=== PATIENT | female | born 1950 | race Caucasian/White ===

== ENCOUNTER → 2016-07-21 | Outpatient (CLI) | payer BC, MEDICARE ==
--- NOTE | 2016-07-22 10:23 | MM ---
Reason for exam: screening (asymptomatic). Last mammogram was performed 7 years and 5 months ago. History: Patient is postmenopausal. Benign excisional biopsy of the right breast. Physical Findings: A clinical breast exam by your physician is recommended on an annual basis and results should be correlated with mammographic findings. MG Screening Mammo w CAD Bilateral CC and MLO view(s) were taken. No prior studies available for comparison. Focal asymmetry bilaterally. ASSESSMENT: Probably benign, BI-RAD 3 RECOMMENDATION: Follow-up diagnostic mammogram of both breasts in 6 months.
== END | disposition home or self-care (01) ==
LOC: RADMAMWWP 15:58
PROVIDERS: ATTEND Family Medicine
DX: Z12.31 Encounter for screening mammogram for malignant neoplasm of breast (principal)

== ENCOUNTER 2016-08-25 06:20 | Emergency (ER) | payer BC, MEDICARE ==
--- NOTE | 2016-08-25 06:48 | ED ---
Upper Extremity HPI - General Chief Complaint: Extremity Injury, Upper Stated Complaint: fall,wrist injury Time Seen by Provider: 08/25/16 06:30 Source: patient Mode of arrival: ambulatory Limitations: no limitations - History of Present Illness Initial Comments: Draining about left wrist pain and left hand pain, she fell off the couch yesterday. Denies any head head injury neck injury or any other injuries from the left hand is swollen and when she moves her hand and also hurts her forearm no pedal injury to the forearm as such or left elbow or the left shoulder. Review of systems are negative otherwise - Related Data Home Medications Medication Instructions Recorded Confirmed Hydrocodone/Acetaminophen [Lortab 1 tab PO TID PRN 05/04/14 10/22/14 10-325 mg Tablet] Montelukast [Singulair] 10 mg PO DAILY 05/04/14 10/22/14 Temazepam [Restoril] 15 mg PO HS 05/04/14 10/22/14 Tiotropium [place] [Spiriva] 1 puff INHALATION RT-DAILY 05/04/14 10/22/14 ALPRAZolam [Xanax] 0.5 mg PO BID PRN 10/22/14 10/22/14 Albuterol Sulfate [Proair Hfa] 2 puff INHALATION RT-QID PRN 10/22/14 10/22/14 Arformoterol Tartrate [Brovana] 15 mcg INHALATION RT-BID 10/22/14 10/22/14 Aspirin EC [Ecotrin Low Dose] 81 mg PO DAILY 10/22/14 10/22/14 Budesonide [Pulmicort] 1 mg INHALATION BID 10/22/14 10/22/14 Ipratropium Nebulized [Atrovent 0.5 mg INHALATION RT-QID 10/22/14 10/22/14 Nebulized] Levalbuterol HCl [Xopenex 1.25 mg INHALATION RT-QID PRN 10/22/14 10/22/14 Nebulized] Methimazole [Tapazole] 5 mg PO DAILY 10/22/14 10/22/14 Previous Rx's Medication Instructions Recorded DULoxetine HCL [Cymbalta] 30 mg PO DAILY #30 capsule.dr 05/06/14 Metoprolol Succinate [Toprol XL] 50 mg PO DAILY #30 tab.er.24h 05/06/14 amLODIPine BESYLATE [Norvasc] 10 mg PO DAILY #30 tablet 05/06/14 Calcium Carb-Vit D 500Mg-200Un 1 each PO BID #60 tablet 10/23/14 [Oscal 500+D] Cyclobenzaprine [Flexeril] 5 mg PO TID PRN #30 tab 10/23/14 Levofloxacin [Levaquin] 750 mg PO DAILY #5 tab 10/23/14 methylPREDNISolone Dose Pack 4 mg PO DIRECTED #21 package 10/23/14 [Medrol Dose Pack] predniSONE 10 mg PO DAILY #0 10/23/14 HYDROmorphone [Dilaudid] 2 mg PO Q8H PRN #15 tab 08/25/16 Allergies Allergy/AdvReac Type Severity Reaction Status Date / Time No Known Allergies Allergy Verified 08/25/16 06:27 Review of Systems ROS Statement: Those systems with pertinent positive or pertinent negative responses have been documented in the HPI. ROS Other: All systems not noted in ROS Statement are negative. Past Medical History Past Medical History: COPD, Hypertension, Pneumonia, Thyroid Disorder Additional Past Medical History / Comment(s): 10/22/14 Pt presented to [facility] ER with c/o epigastric and RUQ pain that wraps around to her whole back. Pain started 5 days ago. Pt being admitted with RLL pneumonia. Other HX: O2 dependent- 2L/NC. 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 polypectomy ( benign) bleed and was in ICU but pt states she did not have to recieve blood. History of Any Multi-Drug Resistant Organisms: None Reported Past Surgical History: Cholecystectomy, Hysterectomy, Orthopedic Surgery Additional Past Surgical History / Comment(s): R nephrectomy-donated to son, 2011 laparotomy with lysis of adhesions from kidney surgery causing bowel obstruction, L shoulder and collar bone surgery, lap sweta, colonoscopy with polypectomy and. post procedure rectal bleed. Past Anesthesia/Blood Transfusion Reactions: No Reported Reaction Additional Past Anesthesia/Blood Transfusion Reaction / Comment(s): Pt has never recieved blood. Past Psychological History: Depression Additional Psychological History / Comment(s): Pt lives with her . She is O2 dependent at 2L/NC continuously. She is independent. She uses no assistive devices or home care agency. She drives a car. Smoking Status: Former smoker Past Alcohol Use History: None Reported Additional Past Alcohol Use History / Comment(s): Pt started smoking in 1975 and quit smoking in 2011. She states however, that approx. 4 times a week she will sneak one cigarette. Past Drug Use History: None Reported - Past Family History Father Family Medical History: Cancer Additional Family Medical History / Comment(s): Pancreatic cancer and passed when he was 58 Mother Additional Family Medical History / Comment(s): None General Exam - General Exam Comments Initial Comments: General: The patient is awake and alert, in no distress, and does not appear acutely ill. Skin: Skin is warm and dry and no rashes or lesions are noted. Eye: Pupils are equal, round and reactive to light, extra-ocular movements are intact; there is normal conjunctiva bilaterally. Ears, nose, mouth and throat: There are moist mucous membranes and no oral lesions. Neck: The neck is supple, there is no tenderness Cardiovascular: There is a regular rate and rhythm. No murmur, rub or gallop is appreciated. Respiratory: To auscultation bilateral, no wheezing no rhonchi no distress respiratory gold noticed Gastrointestinal: Soft, non-distended, non-tender abdomen without masses or organomegaly noted. There is no rebound or guarding present. Bowel sounds are unremarkable. Back: There is no tenderness to palpation in the midline. There is no obvious deformity. Musculoskeletal: Left hand noticed some swelling around the wrist joint and the dorsal surface of the proximal hand, she is able to move her fingers range of motion is fairly compromised on the left wrist flexion and extension and supination and pronation are all compromised, no motor sensory deficit noticed Neurological: CN II-XII intact, Cranial nerves III through XII are intact. There are no obvious motor or sensory deficits. Coordination appears grossly intact. Speech is normal. Psychiatric: Cooperative, appropriate mood & affect, normal judgment. Limitations: no limitations Course Vital Signs 08/25/16 06:25 Temperature 97.3 F L Pulse Rate 94 Respiratory 20 Rate Blood Pressure 138/77 O2 Sat by Pulse [address] Curiel this morning Dr. Curiel agreed to see her 8:30 today in his office, wrist was splinted she was given prescription of pain medications she also had a shot of Toradol in the ER Disposition Clinical Impression: Radial fracture, Scaphoid fracture Disposition: HOME SELF-CARE Condition: Good Instructions: Wrist Injury (ED) Prescriptions: HYDROmorphone [Dilaudid] 2 mg PO Q8H PRN #15 tab PRN Reason: Pain Referrals: Chris Lopez DO [Primary Care Provider] - 1-2 days Nathanael Curiel DO [Doctor of Osteopathic Medicine] - 1-2 days
[2016-08-25] MEDS ORDERED: KETOROLAC 30 MG/ML 1 ML VIAL IM STA (06:53)
--- NOTE | 2016-08-25 07:18 | XR ---
EXAMINATION TYPE: 4 views left wrist. 3 views left hand. DATE OF EXAM: 08/25/2016 6:52 AM COMPARISON: NONE HISTORY: 66-year-old female with pain after fall yesterday lateral sided swelling. FINDINGS: Left wrist: There is subtle intra-articular lucency seen adjacent to the radial styloid process at the level of t he radiocarpal joint both on the navicular view and dorsally on the lateral view. Dorsal and lateral soft tissue swelling is noted. Otherwise, the radiocarpal and distal radial ulnar joint as well as th e midcarpal compartment appear intact. Left hand: There is mild to moderate osteoarthritic change at the first CMC joint and additional scattered mild to moderate osteoarthritic change throughout the DIP joints. A ring is present on the fourth digit. O steopenia without additional acute fracture seen. IMPRESSION: 1. Findings suggest a nondisplaced intra-articular fracture of the radial styloid process. Associated soft tissue swelling. 2. Osteoarthritic changes at the base of the thumb and involving the DIP joints. ICD 10: Acute, closed posttraumatic fracture, initial encounter.
[2016-08-25 07:31] VITALS: BP 114/67; PULSE 84; RESP 17; TEMP 98.1
== END 2016-08-25 07:29 | disposition home or self-care (01) ==
LOC: EC 06:20
DX: S52.514A Nondisplaced fracture of right radial styloid process, initial encounter for closed fracture (principal); S62.002A Unspecified fracture of navicular [scaphoid] bone of left wrist, initial encounter for closed fracture; J44.9 Chronic obstructive pulmonary disease, unspecified; E07.9 Disorder of thyroid, unspecified; F32.9 Major depressive disorder, single episode, unspecified; Z87.891 Personal history of nicotine dependence; Z79.82 Long term (current) use of aspirin; Z79.899 Other long term (current) drug therapy; Z87.01 Personal history of pneumonia (recurrent); Z99.81 Dependence on supplemental oxygen; W08.XXXA Fall from other furniture, initial encounter
CPT/HCPCS: 73110; 73130; 99283; 29125; 96372; J1885

== ENCOUNTER 2017-03-25 13:19 | Emergency (ER) | payer BC, MEDICARE ==
[2017-03-25 13:30] VITALS: RESP 18
[2017-03-25 13:49] LABS: Basophils % (A) 0 %; CH 27.6; CHCM 31.6; Eosinophils # (A) 0.4 k/uL (0-0.7); Eosinophils % (A) 4 %; HCT 33.6 % (34.0-46.0); HDW 2.75; HGB 10.7 gm/dL (11.4-16.0); Hypochromasia Slight; Luc # (Auto) 0.21; Luc % (Auto) 2; Lymphocytes # (A) 1.7 k/uL (1.0-4.8); Lymphocytes % (A) 19 %; MCH 27.9 pg (25.0-35.0); MCHC 31.7 g/dL (31.0-37.0); MCV 87.9 fL (80.0-100.0); Mean Platelet Volume 6.6; Monocytes # (A) 0.7 k/uL (0-1.0); Monocytes % (A) 7 %; Neutrophils # (A) 6.1 k/uL (1.3-7.7); Neutrophils % (A) 67 %; RBC 3.83 m/uL (3.80-5.40); WBC 9.1 k/uL (3.8-10.6); WBC (Perox) 8.98
[2017-03-25 13:54] LABS: Prothrombin Time 10.3 sec (9.0-12.0)
[2017-03-25 13:55] LABS: ALT 31 U/L (9-52); AST 14 U/L (14-36); Alkaline Phosphatase 79 U/L (38-126); Amylase 44 U/L (30-110); Anion Gap 11 mmol/L; Blood Urea Nitrogen 13 mg/dL (7-17); Calcium 9.7 mg/dL (8.4-10.2); Carbon Dioxide 30 mmol/L (22-30); Chloride 101 mmol/L (98-107); Glucose 91 mg/dL (74-99); Magnesium 1.7 mg/dL (1.6-2.3); Non-African American GFR(MDRD) >60 (>60 ml/min/1.73 sqM); Potassium 3.5 mmol/L (3.5-5.1); Sodium 142 mmol/L (137-145); Total Bilirubin 0.4 mg/dL (0.2-1.3); Total Protein 6.2 g/dL (6.3-8.2)
[2017-03-25 14:01] LABS: Partial Thromboplastin Time 21.6 sec (22.0-30.0)
[2017-03-25 14:12] LABS: Creatine Kinase <20 U/L (30-135)
--- NOTE | 2017-03-25 14:14 | ED ---
Abdominal Pain HPI - General Chief Complaint: Abdominal Pain Stated Complaint: LEFT LOWER BACK PAIN Time Seen by Provider: 03/25/17 13:19 Source: patient, EMS, RN notes reviewed, old records reviewed Mode of arrival: EMS Limitations: no limitations - History of Present Illness Initial Comments: This is a 66-year-old female who was transferred here for evaluation for abdominal aortic aneurysm evaluation. Patient apparently has a known aneurysm she did complain of some pain to her left low back and across her lower abdomen. Ultrasound. It was done at the nursing facility where she is rehabbing right now showed evidence of a 4 cm aneurysm with a possible thrombus. Patient was sent here for evaluation of this. Patient does have a history of a right nephrectomy she did donate a kidney 20 over sounds in the past. She has any fevers chills nausea vomiting sweats. Of note she recently was in [place] and states she suddenly woke up in the hospital after being in a coma for a couple weeks. She denies her what happened and does not have much recall of the events. No diarrhea dysuria MD Complaint: abdominal pain - Related Data Home Medications Medication Instructions Recorded Confirmed Montelukast [Singulair] 10 mg PO HS@2130 05/04/14 03/25/17 Tiotropium [place] [Spiriva] 1 cap INHALATION RT-DAILY@0800 05/04/14 03/25/17 Aspirin EC [Ecotrin Low Dose] 81 mg PO DAILY@1700 10/22/14 03/25/17 Budesonide [Pulmicort] 1 mg INHALATION RT-BID@1000,1400 10/22/14 03/25/17 Albuterol Nebulized [Ventolin 2.5 mg INHALATION 03/25/17 03/25/17 Nebulized] RT-QID@,,, Albuterol Sulfate [Proair Hfa] 2 puff INHALATION 03/25/17 03/25/17 RT-QID@,,,21 Arformoterol Tartrate [Brovana] 15 mcg INHALATION RT-BID@0800,1700 03/25/17 Bisacodyl [Dulcolax] 10 mg RECTAL DAILY PRN 03/25/17 03/25/17 Calcium Carbonate/Vitamin D3 1 tab PO DAILY@1700 03/25/17 03/25/17 [Calcium 600-Vit D3 200 Tablet] DULoxetine HCL [Cymbalta] 60 mg PO DAILY@0800 03/25/17 03/25/17 HYDROcodone/APAP 5-325MG [[place] 1 tab PO Q6HR PRN 03/25/17 03/25/17 5-325] Mag Hydrox/Al Hydrox/Simeth 15 ml PO QID PRN 03/25/17 03/25/17 [Maalox] Magnesium Hydroxide [Milk of 2,400 mg PO DAILY PRN 03/25/17 03/25/17 Magnesia] Metoprolol Succinate [Toprol XL] 25 mg PO DAILY@0800 03/25/17 03/25/17 Na Phos,M-B/Na Phos,Di-Ba [Fleet 133 ml RECTAL DAILY PRN 03/25/17 03/25/17 Adult] Ondansetron HCl [Zofran] 4 mg PO Q8H PRN 03/25/17 03/25/17 Potassium Chloride ER [K-Dur 10] 10 meq PO DAILY@1700 03/25/17 03/25/17 amLODIPine [Norvasc] 10 mg PO DAILY@0800 03/25/17 03/25/17 Previous Rx's Medication Instructions Recorded Cephalexin [Keflex] 500 mg PO Q6HR #40 cap 03/25/17 Allergies Allergy/AdvReac Type Severity Reaction Status Date / Time hydromorphone [From Dilaudid] Allergy Unknown Verified 03/25/17 14:12 Influenza Virus Vaccines Allergy Unknown Verified 03/25/17 14:12 Review of Systems ROS Statement: Those systems with pertinent positive or pertinent negative responses have been documented in the HPI. ROS Other: All systems not noted in ROS Statement are negative. Past Medical History Past Medical History: COPD, Hypertension, Pneumonia, Thyroid Disorder Additional Past Medical History / Comment(s): 10/22/14 Pt presented to [facility] ER with c/o epigastric and RUQ pain that wraps around to her whole back. Pain started 5 days ago. Pt being admitted with RLL pneumonia. Other HX: O2 dependent- 2L/NC. 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 polypectomy ( benign) bleed and was in ICU but pt states she did not have to recieve blood. History of Any Multi-Drug Resistant Organisms: None Reported Past Surgical History: Cholecystectomy, Hysterectomy, Orthopedic Surgery Additional Past Surgical History / Comment(s): R nephrectomy-donated to son, 2011 laparotomy with lysis of adhesions from kidney surgery causing bowel obstruction, L shoulder and collar bone surgery, lap sweta, colonoscopy with polypectomy and. post procedure rectal bleed. Past Anesthesia/Blood Transfusion Reactions: No Reported Reaction Additional Past Anesthesia/Blood Transfusion Reaction / Comment(s): Pt has never recieved blood. Past Psychological History: Depression Smoking Status: Former smoker Past Alcohol Use History: None Reported Past Drug Use History: None Reported - Past Family History Father Family Medical History: Cancer Additional Family Medical History / Comment(s): Pancreatic cancer and passed when he was 58 Mother Additional Family Medical History / Comment(s): None General Exam - General Exam Comments Initial Comments: This is a well-developed well-nourished awake alert oriented 3 female Limitations: no limitations General appearance: alert, in no apparent distress Head exam: Present: atraumatic, normocephalic, normal inspection Eye exam: Present: normal appearance, PERRL, EOMI. Absent: scleral icterus, conjunctival injection, periorbital swelling ENT exam: Present: normal exam, mucous membranes moist Neck exam: Present: normal inspection. Absent: tenderness, meningismus, lymphadenopathy Respiratory exam: Present: normal lung sounds bilaterally. Absent: respiratory distress, wheezes, rales, rhonchi, stridor Cardiovascular Exam: Present: regular rate, normal rhythm, normal heart sounds. Absent: systolic murmur, diastolic murmur, rubs, gallop, clicks GI/Abdominal exam: Present: soft, normal bowel sounds. Absent: distended, tenderness, guarding, rebound, rigid Extremities exam: Present: normal inspection, full ROM, normal capillary refill. Absent: tenderness, pedal edema, joint swelling, calf tenderness Back exam: Present: normal inspection Neurological exam: Present: alert, oriented X3, CN II-XII intact Psychiatric exam: Present: normal affect, normal mood Skin exam: Present: warm, dry, intact, normal color. Absent: rash Course Vital Signs 03/25/17 03/25/17 13:22 14:07 Temperature 98.8 F Pulse Rate 88 80 Respiratory 18 18 Rate Blood Pressure 125/73 138/70 O2 Sat by Pulse 97 98 Oximetry Medical Decision Making - Medical Decision Making I did discuss the findings with the patient the patient does have a urinary tract infection she does demonstrate the findings on the computed tomography scan nothing acute at this time. Visual be discharged on appropriate antibiotics. - Lab Data Result diagrams: 03/25/17 13:34 03/25/17 13:34 Lab Results 03/25/17 03/25/17 03/25/17 Range/Units 13:34 13:34 13:34 WBC (3.8-10.6) k/uL RBC (3.80-5.40) m/uL Hgb (11.4-16.0) gm/dL Hct (34.0-46.0) % MCV (80.0-100.0) fL MCH (25.0-35.0) pg MCHC (31.0-37.0) g/dL RDW (11.5-15.5) % Plt Count (150-450) k/uL Neutrophils % % Lymphocytes % % Monocytes % % Eosinophils % % Basophils % % Neutrophils # (1.3-7.7) k/uL Lymphocytes # (1.0-4.8) k/uL Monocytes # (0-1.0) k/uL Eosinophils # (0-0.7) k/uL Basophils # (0-0.2) k/uL Hypochromasia PT 10.3 (9.0-12.0) sec INR 1.0 (<1.2) APTT 21.6 L (22.0-30.0) sec Sodium 142 (137-145) mmol/L Potassium 3.5 (3.5-5.1) mmol/L Chloride 101 (98-107) mmol/L Carbon Dioxide 30 (22-30) mmol/L Anion Gap 11 mmol/L BUN 13 (7-17) mg/dL Creatinine 0.84 (0.52-1.04) mg/dL Est GFR (MDRD) Af Amer >60 (>60 ml/min/1.73 sqM) Est GFR (MDRD) Non-Af >60 (>60 ml/min/1.73 sqM) Glucose 91 (74-99) mg/dL Calcium 9.7 (8.4-10.2) mg/dL Magnesium 1.7 (1.6-2.3) mg/dL Total Bilirubin 0.4 (0.2-1.3) mg/dL AST 14 (14-36) U/L ALT 31 (9-52) U/L Alkaline Phosphatase 79 (38-126) U/L Total Creatine Kinase (30-135) U/L CK-MB (CK-2) (0.0-2.4) ng/mL CK-MB (CK-2) Rel Index Troponin I (0.000-0.034) ng/mL Total Protein 6.2 L (6.3-8.2) g/dL Albumin 3.5 (3.5-5.0) g/dL Amylase 44 (30-110) U/L Lipase 38 (23-300) U/L Urine Color Urine Appearance (Clear) Urine pH (5.0-8.0) Ur Specific [place] (1.001-1.035) Urine Protein (Negative) Urine Glucose (UA) (Negative) Urine Ketones (Negative) Urine Blood (Negative) Urine Nitrite (Negative) Urine Bilirubin (Negative) Urine Urobilinogen (<2.0) mg/dL Ur Leukocyte Esterase (Negative) Urine RBC (0-5) /hpf Urine WBC (0-5) /hpf Ur Squamous Epith Cells (0-4) /hpf Amorphous Sediment (None) /hpf Urine Bacteria (None) /hpf Hyaline Casts (0-2) /lpf Urine Mucus (None) /hpf Blood Type A Positive Blood Type Recheck A Pos Antibody Screen NEGATIVE Spec Expiration Date 03/28/2017233303/25/17 03/25/17 03/25/17 Range/Units 13:34 13:34 14:24 WBC 9.1 (3.8-10.6) k/uL RBC 3.83 (3.80-5.40) m/uL Hgb 10.7 L (11.4-16.0) gm/dL Hct 33.6 L (34.0-46.0) % MCV 87.9 (80.0-100.0) fL MCH 27.9 (25.0-35.0) pg MCHC 31.7 (31.0-37.0) g/dL RDW 14.0 (11.5-15.5) % Plt Count 320 (150-450) k/uL Neutrophils % 67 % Lymphocytes % 19 % Monocytes % 7 % Eosinophils % 4 % Basophils % 0 % Neutrophils # 6.1 (1.3-7.7) k/uL Lymphocytes # 1.7 (1.0-4.8) k/uL Monocytes # 0.7 (0-1.0) k/uL Eosinophils # 0.4 (0-0.7) k/uL Basophils # 0.0 (0-0.2) k/uL Hypochromasia Slight PT (9.0-12.0) sec INR (<1.2) APTT (22.0-30.0) sec Sodium (137-145) mmol/L Potassium (3.5-5.1) mmol/L Chloride (98-107) mmol/L Carbon Dioxide (22-30) mmol/L Anion Gap mmol/L BUN (7-17) mg/dL Creatinine (0.52-1.04) mg/dL Est GFR (MDRD) Af Amer (>60 ml/min/1.73 sqM) Est GFR (MDRD) Non-Af (>60 ml/min/1.73 sqM) Glucose (74-99) mg/dL Calcium (8.4-10.2) mg/dL Magnesium (1.6-2.3) mg/dL Total Bilirubin (0.2-1.3) mg/dL AST (14-36) U/L ALT (9-52) U/L Alkaline Phosphatase (38-126) U/L Total Creatine Kinase <20 L (30-135) U/L CK-MB (CK-2) 0.6 (0.0-2.4) ng/mL CK-MB (CK-2) Rel Index Troponin I <0.012 (0.000-0.034) ng/mL Total Protein (6.3-8.2) g/dL Albumin (3.5-5.0) g/dL Amylase (30-110) U/L Lipase (23-300) U/L Urine Color Yellow Urine Appearance Cloudy H (Clear) Urine pH 5.5 (5.0-8.0) Ur Specific [place] 1.019 (1.001-1.035) Urine Protein 2+ H (Negative) Urine Glucose (UA) Negative (Negative) Urine Ketones Negative (Negative) Urine Blood Negative (Negative) Urine Nitrite Positive H (Negative) Urine Bilirubin 1+ H (Negative) Urine Urobilinogen 2.0 (<2.0) mg/dL Ur Leukocyte Esterase Small H (Negative) Urine RBC 2 (0-5) /hpf Urine WBC 13 H (0-5) /hpf Ur Squamous Epith Cells 10 H (0-4) /hpf Amorphous Sediment Rare H (None) /hpf Urine Bacteria Many H (None) /hpf Hyaline Casts 189 H (0-2) /lpf Urine Mucus Few H (None) /hpf Blood Type Blood Type Recheck Antibody Screen Spec Expiration Date - EKG Data -: EKG Interpreted by Pr EKG shows normal: sinus rhythm (Sinus rhythm a rate of 91 appear of 01 76 QRS duration 74 QT since QTC of 352/432 this is a normal-appearing EKG.) - Radiology Data Radiology results: report reviewed, image reviewed (I did review the imaging and reports no acute findings the ascending aorta at the level of the main pulmonary arteries 3.6 to main pulmonary artery bifurcation is 3.1 cm descending thoracic aorta at the level of distal thorax measures 4.3 cm which is dilated no evidence of extravasation) Disposition Clinical Impression: Urinary tract infection, Thoracic aortic aneurysm without rupture Disposition: HOME SELF-CARE Condition: Good Instructions: Urinary Tract Infection in Women (ED), Thoracic Aortic Aneurysm ( ED) Prescriptions: Cephalexin [Keflex] 500 mg PO Q6HR #40 cap Referrals: Chris Lopez DO [Primary Care Provider] - 1-2 days
[2017-03-25 14:24] LABS: Creatine Kinase MB 0.6 ng/mL (0.0-2.4); Troponin I <0.012 ng/mL (0.000-0.034)
[2017-03-25 14:35] LABS: Amorphous Sediment,Urine Rare /hpf; Appearance,Urine Cloudy (Clear); Bacteria,Urine Many /hpf; Bilirubin,Urine 1+ (Negative); Glucose,Urine (UA) Negative (Negative); Ketones,Urine Negative (Negative); Leukocyte Esterase,Urine Small (Negative); Mucus,Urine Few /hpf; Nitrite,Urine Positive (Negative); PH, Urine 5.5 (5.0-8.0); Particle Count 8428; Protein,Urine 2+ (Negative); RBC,Urine 2 /hpf (0-5); Specific Gravity,Urine 1.019 (1.001-1.035); Squamous Epithelial Cell,Urine 10 /hpf (0-4); UA Billing (MACRO vs. MICRO) MICRO; WBC,Urine 13 /hpf (0-5)
[2017-03-25] MEDS ORDERED: SODIUM CHLORIDE 0.9% 1,000 ML IV STA (14:56)
[2017-03-25] MEDS ORDERED: RX INFO: IV CONTRAST WAS GIVEN 1 EACH MISC MISCELLANE PRN (14:56)
--- NOTE | 2017-03-25 15:53 | CT ---
EXAMINATION TYPE: CT angio thoracic/abd aorta DATE OF EXAM: 03/25/2017 COMPARISON: NONE HISTORY: Nausea, low back and abdominal pain x [address] DLP: 825.70 mGycm. Automated Exposure Control for Dose Reduction was Utilized. CONTRAST: CT scan of the thorax, abdomen and pelvis is performed without and with IV Contrast, patient injected with 100 mL of Omnipaque 350. FINDINGS: There is marked enlargement of the thyroid which extends into the suprasternal space. Proli ferative goiter. Note is made of vascular calcification within the aorta. LUNGS: The lungs are grossly clear, there is no concerning parenchymal mass or nodule identified. T here is no pleural effusion or pneumothorax seen. The tracheobronchial tree is patent. MEDIASTINUM: There is a 1.4 cm pretracheal space lymph node which is enlarged by CT criteria. OTHER: The ascending thoracic aorta at the level the main pulmonary artery is 3.6 cm. The main pulmon eduardo artery the bifurcation is 3.1 cm. The descending thoracic aorta at the level of the distal thorax measures 4.3 cm which is dilated. LIVER/GB: Liver is within normal limits. The gallbladder is surgically absent PANCREAS: No significant abnormality is seen. SPLEEN: No significant abnormality is seen. ADRENALS: No significant abnormality is seen. KIDNEYS: A 1.0 cm hyperdensities in the posterior lateral left mid kidney. A smaller adjacent hyperin tensity is present. Angiomyolipomas may be present. The right kidney is not identified. BOWEL: No significant abnormality is seen. Diverticular changes are within the sigmoid colon. GENITAL ORGANS: No gross abnormality seen. LYMPH NODES: No greater than 1cm abdominal or pelvic lymph nodes are appreciated. OSSEOUS STRUCTURES: No significant abnormality is seen. OTHER: No significant additional abnormality is seen. IMPRESSION: 1. Thyroid goiter 2. Mild prominence of the descending thoracic aorta with an AP diameter of 4.3 cm. Abdominal aorta ta pers normally through its visualized course.
[2017-03-25 16:21] VITALS: BP 144/85; PULSE 89; TEMP 98.5
== END 2017-03-25 17:00 | disposition home or self-care (01) ==
LOC: EC 13:19
DX: N39.0 Urinary tract infection, site not specified (principal); I71.2 Thoracic aortic aneurysm, without rupture; J44.9 Chronic obstructive pulmonary disease, unspecified; I10 Essential (primary) hypertension; E07.89 Other specified disorders of thyroid; G89.29 Other chronic pain; F32.9 Major depressive disorder, single episode, unspecified; Z87.891 Personal history of nicotine dependence; Z79.51 Long term (current) use of inhaled steroids; Z79.82 Long term (current) use of aspirin; Z79.899 Other long term (current) drug therapy; Z88.5 Allergy status to narcotic agent; Z88.7 Allergy status to serum and vaccine; Z90.49 Acquired absence of other specified parts of digestive tract; Z99.81 Dependence on supplemental oxygen; Z90.5 Acquired absence of kidney
CPT/HCPCS: 36415; 93005; 86900; 86901; 80053; 82150; 82550; 82553; 83690; 83735; 84484; 85025; 85610; 85730; 86850; 81001; 75635; 71275; 99285; 96360; Q9967; 80048; 82728; 83540; 83550

== ENCOUNTER → 2017-05-10 | Outpatient (CLI) | payer BC, MEDICARE ==
--- NOTE | 2017-05-10 10:47 | US ---
EXAMINATION TYPE: US thyroid st tissue head/neck DATE OF EXAM: 05/10/2017 COMPARISON: Prior thyroid ultrasound September 16, 2015. 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 Follow up Nodule GLAND SIZE: Right Lobe: 5.9 x 3.9 x 3.4 cm Overall Parenchyma: heterogenous Left Lobe: 7.2 x 3.3 x 3.6 cm Overall Parenchyma: heterogeneous Isthmus Thickness: 1.3 cm NODULES RIGHT: # of nodules measured on right: 3 1. 1.9 X 1.5 x 1.5 cm mixed nodule at the mid pole with well-defined margins. This nodule is talle r than wide and shows intranodular vascularity. Prior size: 1.6 x 1.4 x 1.0 cm 2. 1.0 X 0.9 x 0.6 cm isoechoic solid nodule at the upper pole with well-defined margins. This nodu le is taller than wide and shows intranodular vascularity. Prior size: No previous 3. 1.0 X 0.7 x 0.7 cm hypoechoic solid nodule at the lower pole with irregular margins. This nodule is taller than wide and shows no intranodular vascularity. Prior size: No previous LEFT: # of nodules measured on left: 2 1. 1.6 X 1.6 x 1.3 cm mixed nodule at the lower pole with poorly defined margins. This nodule is t aller than wide and shows no intranodular vascularity. Prior size: No prior 2. 1.8 X 1.7 x 1.2 cm isoechoic solid nodule at the upper pole with poorly defined margins. This no dule is taller than wide and shows no intranodular vascularity. Prior size: No prior ISTHMUS: # of nodules measured in the isthmus: 0 Bilateral neck scanned, no evidence of lymphadenopathy. Bilateral enlarged multinodular thyroid There is redemonstration of heterogeneous enlarged thyroid with multiple nodules. More nodules are ma rked by technologist on current study, these likely were present but not marked on the prior study du e to the heterogeneity. IMPRESSION: Findings consistent with multinodular goiter as detailed above.
== END | disposition home or self-care (01) ==
LOC: RADUSWWP 09:42
PROVIDERS: ATTEND Family Medicine
DX: E04.2 Nontoxic multinodular goiter (principal)
CPT/HCPCS: 76536

== ENCOUNTER → 2017-07-19 | Day surgery (SDC) | payer BC, MEDICARE ==
[~2017-07-19] MED LIST: BALANCED SALT IRRIG SOLN COMB2 15 ML IRRIG.SOLN IRRIGATION ONE; EPINEPHrine (PF) 0.5 ML in BALANCED SALT IRRIG SOLN COMB2 500 ML IRRIGATION ONE; GENTAMICIN/PREDNISOL AC OPHTH OINT 3.5GM OPHTHALMIC ONE; HYALURONATE SODIUM INTRAOCULAR 1 EACH SYRINGE (10MG/ML) INTRAOCULA ONE; LIDOCAINE 1% 20 ML VIAL (10MG/ML) FOR IV START INTRADERMA PRN; ONDANSETRON 4 MG/2 ML VIAL IVP ONE; PROPOFOL 10 MG/ML 20 ML VIAL IV ONE; TIMOLOL 0.5% OPHTH SOLN (PF) 0.2 ML DROPERETTE OP ONE
[2017-07-19] MEDS: PHENYLEPHRINE 10% OPHTH DROPS 5 ML BTL OP ONE ×3 (09:20→09:38)
[2017-07-19 09:21] VITALS: TEMP 97.8
[2017-07-19] MEDS: CYCLOPENTOLATE 1% OPHTH SOLN 2 ML BTL OP ONE ×3 (09:23→09:40)
[2017-07-19] MEDS: FLURBIPROFEN 0.03% OPHTH DROPS 2.5 ML BTL OP ONE ×2 (09:25→09:35)
[2017-07-19] MEDS: LACTATED RINGERS 1,000 ML IV SCH ×2 (09:36→10:03)
[2017-07-19] MEDS: BUPIVACAINE (PF) 0.75% 5 ML, HYALURONIDASE, HUMAN RECOMB 150 UNIT, LIDOCAINE 2% (PF) 10... MISCELLANE ONE ×6 (10:04→10:10)
--- NOTE | 2017-07-19 10:31 | P.OP ---
Date of Procedure: 07/19/17 Procedure(s) Performed: PREOPERATIVE DIAGNOSIS: Cataract, left eye. POSTOPERATIVE DIAGNOSIS: Cataract, left eye. OPERATION: Phacoemulsification cataract, left eye. DESCRIPTION OF PROCEDURE: The patient was taken to the preoperative holding area. Intravenous Propofol was given so as to bring about adequate sedation. The following mixture was given for local anesthesia: 5 mL of 2% lidocaine, 5 mL of 0.75% Marcaine, and 1 mL of Wydase. Approximately 4 mL was injected in the retrobulbar space of the surgical eye. Additional 1 mL was then directed to the temporal area of the surgical eye. This was performed to allow adequate neurological block of the facial muscles. The patient was revived and then taken into the operative room. The patient was prepped and draped in the usual sterile manner for the operative eye. A lid speculum was put into position. The conjunctiva was resected back from the limbus in the 12 o'clock position. Bleeding was controlled with electrocautery. A #69 blade was then used and a half-thickness scleral incision approximately 1-mm posterior to the limbus was made on bare sclera. This was shelved in the clear cornea using a crescent knife. Next a 15-degree blade was used to make a stab incision at the 3 o' clock position at the corneolimbal interface. Keratome blade was then used and the superior wound was extended into the anterior chamber. Viscoelastic was injected into the anterior chamber and to maintain its form. Next, a cystotome was used and a continuous anterior capsulotomy was made without difficulty. Hydrodissection using a blunt cannula and BSS was performed. Phaco probe was then employed and a groove extending from 12 to 6 o'clock in the lens was created. A Rolando wand was used through the stab incision so as to perform a divide and conquer technique. Next an irrigation aspiration probe was utilized and any residual cortex was removed from the eye. Again, viscoelastic was injected into the anterior chamber. An Philipp posterior chamber lens implant was placed in the cartridge and injected into the anterior chamber without difficulty. The SinTwillioney hook was utilized to spin the lens into position and this was again performed without any difficulty. The irrigation and aspiration probe was again employed and any residual viscoelastic was removed from the eye. Then BSS was injected into the limbal stab incision and the anterior chamber re-inflated. The conjunctiva was reapproximated using electrocautery. One drop of 0.25% Timoptic was placed over the corneal along with TobraDex ophthalmic ointment. Two sterile patches and a Henderson eye shield were taped into position. The patient was transported to the recovery room in stable condition. Pathology: none sent Condition: stable Disposition: same day
[2017-07-19 10:33] VITALS: RESP 16
[2017-07-19 10:58] VITALS: BP 128/88; PULSE 77
== END | disposition home or self-care (01) ==
LOC: OR 08:19
PROVIDERS: ATTEND Ophthalmology
DX: H26.9 Unspecified cataract (principal); I10 Essential (primary) hypertension; J44.9 Chronic obstructive pulmonary disease, unspecified; I71.4 Abdominal aortic aneurysm, without rupture; F17.200 Nicotine dependence, unspecified, uncomplicated; Z99.81 Dependence on supplemental oxygen; E03.9 Hypothyroidism, unspecified; Z90.5 Acquired absence of kidney; Z79.82 Long term (current) use of aspirin; Z79.51 Long term (current) use of inhaled steroids; Z79.899 Other long term (current) drug therapy; Z88.5 Allergy status to narcotic agent; Z88.7 Allergy status to serum and vaccine
CPT/HCPCS: 66984; V2632; J3470; J2001; J0171; J2704

== ENCOUNTER 2017-09-21 07:33 | Day surgery (SDC) | payer BC, MEDICARE ==
[2017-09-20 09:07] VITALS: BMI 24.7
[~2017-09-21 07:33] MED LIST changes: -BALANCED SALT IRRIG SOLN COMB2 15 ML IRRIG.SOLN IRRIGATION ONE; -EPINEPHrine (PF) 0.5 ML in BALANCED SALT IRRIG SOLN COMB2 500 ML IRRIGATION ONE; -GENTAMICIN/PREDNISOL AC OPHTH OINT 3.5GM OPHTHALMIC ONE; -HYALURONATE SODIUM INTRAOCULAR 1 EACH SYRINGE (10MG/ML) INTRAOCULA ONE; +LACTATED RINGERS 1,000 ML IV SCH; -LIDOCAINE 1% 20 ML VIAL (10MG/ML) FOR IV START INTRADERMA PRN; -ONDANSETRON 4 MG/2 ML VIAL IVP ONE; -PROPOFOL 10 MG/ML 20 ML VIAL IV ONE; -TIMOLOL 0.5% OPHTH SOLN (PF) 0.2 ML DROPERETTE OP ONE
[2017-09-21 08:57] VITALS: TEMP 98.2
[2017-09-21] MEDS ORDERED: LIDOCAINE 1% 20 ML VIAL (10MG/ML) FOR IV START INTRADERMA ONE (09:18)
[2017-09-21] MEDS ORDERED: PROPOFOL 10 MG/ML 20 ML VIAL IV ONE (09:19)
--- NOTE | 2017-09-21 09:52 | P.PCN ---
Date of Procedure: 09/21/17 Procedure(s) Performed: BRIEF HISTORY: Patient is a 67-year-old pleasant white female, scheduled for an elective colonoscopy as a part of evaluation of change in bowel habits for the last 1 year duration. She is been having severe constipation but denies any rectal bleeding. Her last colonoscopy was 10 years ago. PROCEDURE PERFORMED: Colonoscopy. PREOPERATIVE DIAGNOSIS: Change in bowel habits. IV sedation per Anesthesia. PROCEDURE: After informed consent was obtained, the patient, was brought into the endoscopy unit. IV sedation was administered by Anesthesia under continuous monitoring. Digital rectal examination was normal. Initially the Olympus CF- 160 flexible video colonoscope was then inserted in the rectum, gradually advanced into the sigmoid colon and further advancement was not possible because of acute angle duration this area. The scope was removed and a pediatric colonoscope was then introduced into the rectum and gradually advanced into the cecum without any difficulty. Careful examination was performed as the scope was gradually being withdrawn. Ileocecal valve and the appendiceal orifice were visualized and appeared normal. Prep was very poor and several areas of the colon. Thorough irrigation was performed despite which several areas of the colon could not be adequately visualized because of extremely poor prep. The visualized portions of the mucosa of the cecum, ascending colon, transverse colon, descending colon, sigmoid colon, and rectum appeared normal. Moderate sigmoid diverticulosis seen. Retroflexion was performed in the rectum and no lesions were seen. The patient tolerated the procedure well. IMPRESSION: Moderate sigmoid diverticulosis Poor prep involving several areas of the colon RECOMMENDATIONS: Findings of this examination were discussed with the patient as well as her family. She was advised to continue on MiraLAX 1 scoop twice daily for the chronic constipation and have a repeat surveillance colonoscopy in 3-5 years because of the poor prep.
[2017-09-21 10:04] VITALS: RESP 16
[2017-09-21 10:41] VITALS: BP 129/74; PULSE 78
== END 2017-09-21 10:50 | disposition home or self-care (01) ==
LOC: ORWHC2ENDO 07:33
PROVIDERS: ATTEND Internal Medicine Gastroenterology
DX: K57.30 Diverticulosis of large intestine without perforation or abscess without bleeding (principal); I10 Essential (primary) hypertension; J44.9 Chronic obstructive pulmonary disease, unspecified; Z79.82 Long term (current) use of aspirin; Z79.899 Other long term (current) drug therapy; Z88.7 Allergy status to serum and vaccine; Z88.5 Allergy status to narcotic agent; Z79.891 Long term (current) use of opiate analgesic; Z99.81 Dependence on supplemental oxygen; Z90.5 Acquired absence of kidney
CPT/HCPCS: 45378; J2704

== ENCOUNTER 2018-03-06 05:35 | Inpatient (IN) | payer MEDICARE ==
[2018-03-06] MEDS ORDERED: IPRATROPIUM 0.5 MG/2.5 ML NEBU INHALATION STA (05:40)
[2018-03-06] MEDS ORDERED: ALBUTEROL NEBULIZED 2.5 MG/3 ML INHALATION STA (05:40)
[2018-03-06 06:04] LABS: Basophils % (A) 0 %; Eosinophils # (A) 0.2 k/uL (0-0.7); Eosinophils % (A) 2 %; HCT 35.2 % (34.0-46.0); HGB 11.8 gm/dL (11.4-16.0); Lymphocytes # (A) 1.4 k/uL (1.0-4.8); Lymphocytes % (A) 13 %; MCH 27.6 pg (25.0-35.0); MCHC 33.4 g/dL (31.0-37.0); MCV 82.5 fL (80.0-100.0); Mean Platelet Volume 6.1; Monocytes # (A) 0.6 k/uL (0-1.0); Monocytes % (A) 5 %; Neutrophils # (A) 8.3 k/uL (1.3-7.7); Neutrophils % (A) 78 %; Platelet Count 401 k/uL (150-450); RBC 4.27 m/uL (3.80-5.40); RDW 13.7 % (11.5-15.5); WBC 10.8 k/uL (3.8-10.6)
--- NOTE | 2018-03-06 06:05 | XR ---
EXAMINATION TYPE: XR chest 1V portable DATE OF EXAM: 03/06/2018 COMPARISON: 05/02/2017 HISTORY: Short of breath TECHNIQUE: Single frontal view of the chest is obtained. FINDINGS: There is no heart failure nor confluent pneumonic infiltrate. Thoracic aorta is atheromato us. There is a plate fixing the left clavicle. There is osteopenia. There are chest leads. IMPRESSION: No active cardiopulmonary disease. Atheromatous aorta. No change.
[2018-03-06 06:18] LABS: Prothrombin Time 9.8 sec (9.0-12.0)
[2018-03-06] MEDS ORDERED: methylPREDNISolone SOD SUCCI 125 MG/2 ML VIAL IV STA (06:19)
--- NOTE | 2018-03-06 06:22 | ED ---
General Adult HPI - General Chief complaint: Shortness of Breath Stated complaint: SOB Time Seen by Provider: 03/06/18 05:40 Source: patient, RN notes reviewed, old records reviewed Mode of arrival: EMS Limitations: no limitations - History of Present Illness Initial comments: This is a 67-year-old female the ER for evasive significant shortness of breath. Patient poor strain, but in by EMS, EMS states patient has significant difficulty breathing. EMS called the patient's house for severe difficulty breathing. Patient currently on breathing treatment, EMS the patient did have some tripoding with hypoxia. - Related Data Home Medications Medication Instructions Recorded Confirmed Montelukast [Singulair] 10 mg PO HS@2130 05/04/14 03/06/18 Tiotropium [place] [Spiriva] 1 cap INHALATION RT-DAILY@0800 05/04/14 03/06/18 Aspirin EC [Ecotrin Low Dose] 81 mg PO Q48H 10/22/14 03/06/18 Budesonide [Pulmicort] 1 mg INHALATION RT-BID@1000,1400 10/22/14 03/06/18 Albuterol Nebulized [Ventolin 2.5 mg INHALATION 03/25/17 03/06/18 Nebulized] RT-QID@08,,, Albuterol Sulfate [Proair Hfa] 2 puff INHALATION RT-QID PRN 03/25/17 03/06/18 Arformoterol Tartrate [Brovana] 15 mcg INHALATION RT-BID@0800,1700 03/25/1704/13 Calcium Carbonate/Vitamin D3 1 tab PO DAILY@1700 03/25/17 03/06/18 [Calcium 600-Vit D3 200 Tablet] DULoxetine HCL [Cymbalta] 60 mg PO DAILY@0800 03/25/17 03/06/18 Metoprolol Succinate [Toprol XL] 25 mg PO HS@1800 03/25/17 03/06/18 amLODIPine [Norvasc] 10 mg PO HS@1800 03/25/17 03/06/18 Hydrocodone/Acetaminophen [Craig 1 tab PO Q6H PRN 07/08/17 03/06/18 10-325] Methimazole [Tapazole] 5 mg PO HS 07/08/17 03/06/18 Atorvastatin [Lipitor] 10 mg PO HS 09/20/17 03/06/18 ALPRAZolam [Xanax] 0.5 mg PO DAILY PRN 03/06/18 03/06/18 DULoxetine HCL [Cymbalta] 30 mg PO DAILY@0800 03/06/18 03/06/18 Temazepam [Restoril] 15 mg PO HS 03/06/18 03/06/18 Allergies Allergy/AdvReac Type Severity Reaction Status Date / Time Influenza Virus Vaccines Allergy Dyspnea Verified 03/06/18 07:06 hydromorphone [From Dilaudid] AdvReac Hallucinati Verified 03/06/18 07:06 ons Review of Systems ROS Statement: Those systems with pertinent positive or pertinent negative responses have been documented in the HPI. ROS Other: All systems not noted in ROS Statement are negative. Past Medical History Past Medical History: Asthma, COPD, Hypertension, Pneumonia, Thyroid Disorder Additional Past Medical History / Comment(s): recent UTI-now resolved, FEB 2017 -resp. failure-on vent. 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 polypectomy bleed and was in ICU, Graves disease History of Any Multi-Drug Resistant Organisms: None Reported Past Surgical History: Cholecystectomy, Hysterectomy, Orthopedic Surgery Additional Past Surgical History / Comment(s): R nephrectomy, 2011 laparotomy with lysis of adhesions from kidney surgery causing bowel obstruction. L shoulder and collar bone surgery, colonoscopy with polypectomy, cataract surg. Past Anesthesia/Blood Transfusion Reactions: No Reported Reaction Additional Past Anesthesia/Blood Transfusion Reaction / Comment(s): Pt has never received blood. Past Psychological History: Depression Smoking Status: Former smoker - Past Family History Father Family Medical History: Cancer Additional Family Medical History / Comment(s): Pancreatic cancer and passed when he was 60 Mother Family Medical History: No Reported History Additional Family Medical History / Comment(s): None General Exam Limitations: no limitations General appearance: alert, in no apparent distress, anxious, in distress Head exam: Present: atraumatic, normocephalic, normal inspection Eye exam: Present: normal appearance, PERRL, EOMI. Absent: scleral icterus, conjunctival injection, periorbital swelling ENT exam: Present: normal exam, mucous membranes moist Neck exam: Present: normal inspection. Absent: tenderness, meningismus, lymphadenopathy Respiratory exam: Present: respiratory distress, wheezes, accessory muscle use, decreased breath sounds, prolonged expiratory. Absent: rales, rhonchi, stridor Cardiovascular Exam: Present: regular rate, normal rhythm, normal heart sounds. Absent: systolic murmur, diastolic murmur, rubs, gallop, clicks GI/Abdominal exam: Present: soft, normal bowel sounds. Absent: distended, tenderness, guarding, rebound, rigid Extremities exam: Present: normal inspection, full ROM, normal capillary refill. Absent: tenderness, pedal edema, joint swelling, calf tenderness Back exam: Present: normal inspection Neurological exam: Present: alert, oriented X3, CN II-XII intact Psychiatric exam: Present: normal affect, normal mood Skin exam: Present: warm, dry, intact, normal color. Absent: rash Course Vital Signs 03/06/18 03/06/18 03/06/18 05:39 05:45 06:01 Temperature 98.0 F Pulse Rate 95 90 90 Respiratory 22 Rate Blood Pressure 146/76 O2 Sat by Pulse 88 L Oximetry 03/06/18 03/06/18 06:17 06:50 Temperature Pulse Rate 100 105 H Respiratory 22 Rate Blood Pressure 159/79 O2 Sat by Pulse 98 Oximetry - Reevaluation(s) Reevaluation #1: 03/06/18 06:54 Patient is showing significant clinical improvement breathing treatments EKG Findings - EKG Comments: EKG Findings:: EKG shows sinus rhythm rate of 91, WI 186, QRS 86, QTc 462 Medical Decision Making - Medical Decision Making 67 female the ER for evaluation of significant COPD exacerbation, will admit for breathing treatments and monitoring of oxygen - Lab Data Result diagrams: 03/06/18 05:53 03/06/18 05:53 Lab Results 03/06/18 03/06/18 03/06/18 Range/Units 05:53 05:53 05:53 WBC 10.8 H (3.8-10.6) k/uL RBC 4.27 (3.80-5.40) m/uL Hgb 11.8 (11.4-16.0) gm/dL Hct 35.2 (34.0-46.0) % MCV 82.5 (80.0-100.0) fL MCH 27.6 (25.0-35.0) pg MCHC 33.4 (31.0-37.0) g/dL RDW 13.7 (11.5-15.5) % Plt Count 401 (150-450) k/uL Neutrophils % 78 % Lymphocytes % 13 % Monocytes % 5 % Eosinophils % 2 % Basophils % 0 % Neutrophils # 8.3 H (1.3-7.7) k/uL Lymphocytes # 1.4 (1.0-4.8) k/uL Monocytes # 0.6 (0-1.0) k/uL Eosinophils # 0.2 (0-0.7) k/uL Basophils # 0.0 (0-0.2) k/uL PT (9.0-12.0) sec INR (<1.2) APTT (22.0-30.0) sec Sodium 142 (137-145) mmol/L Potassium 3.0 L (3.5-5.1) mmol/L Chloride 103 (98-107) mmol/L Carbon Dioxide 31 H (22-30) mmol/L Anion Gap 8 mmol/L BUN 19 H (7-17) mg/dL Creatinine 0.92 (0.52-1.04) mg/dL Est GFR (CKD-EPI)AfAm 76 (>60 ml/min/1.73 sqM) Est GFR (CKD-EPI)NonAf 66 (>60 ml/min/1.73 sqM) Glucose 109 H (74-99) mg/dL Estimated Ave Glu mg/dL Hemoglobin A1c (4.0-6.0) % Calcium 10.8 H (8.4-10.2) mg/dL Magnesium 1.8 (1.6-2.3) mg/dL Total Bilirubin 0.5 (0.2-1.3) mg/dL AST 13 L (14-36) U/L ALT 21 (9-52) U/L Alkaline Phosphatase 96 (38-126) U/L Total Creatine Kinase 33 (30-135) U/L CK-MB (CK-2) 0.6 (0.0-2.4) ng/mL CK-MB (CK-2) Rel Index 1.8 Troponin I <0.012 (0.000-0.034) ng/mL NT-Pro-B Natriuret Pep pg/mL Total Protein 6.1 L (6.3-8.2) g/dL Albumin 3.5 (3.5-5.0) g/dL 03/06/18 03/06/18 03/06/18 Range/Units 05:53 05:53 05:55 WBC (3.8-10.6) k/uL RBC (3.80-5.40) m/uL Hgb (11.4-16.0) gm/dL Hct (34.0-46.0) % MCV (80.0-100.0) fL MCH (25.0-35.0) pg MCHC (31.0-37.0) g/dL RDW (11.5-15.5) % Plt Count (150-450) k/uL Neutrophils % % Lymphocytes % % Monocytes % % Eosinophils % % Basophils % % Neutrophils # (1.3-7.7) k/uL Lymphocytes # (1.0-4.8) k/uL Monocytes # (0-1.0) k/uL Eosinophils # (0-0.7) k/uL Basophils # (0-0.2) k/uL PT 9.8 (9.0-12.0) sec INR 1.0 (<1.2) APTT 21.2 L (22.0-30.0) sec Sodium (137-145) mmol/L Potassium (3.5-5.1) mmol/L Chloride (98-107) mmol/L Carbon Dioxide (22-30) mmol/L Anion Gap mmol/L BUN (7-17) mg/dL Creatinine (0.52-1.04) mg/dL Est GFR (CKD-EPI)AfAm (>60 ml/min/1.73 sqM) Est GFR (CKD-EPI)NonAf (>60 ml/min/1.73 sqM) Glucose (74-99) mg/dL Estimated Ave Glu mg/dL 111 Hemoglobin A1c 5.5 (4.0-6.0) % Calcium (8.4-10.2) mg/dL Magnesium (1.6-2.3) mg/dL Total Bilirubin (0.2-1.3) mg/dL AST (14-36) U/L ALT (9-52) U/L Alkaline Phosphatase (38-126) U/L Total Creatine Kinase (30-135) U/L CK-MB (CK-2) (0.0-2.4) ng/mL CK-MB (CK-2) Rel Index Troponin I (0.000-0.034) ng/mL NT-Pro-B Natriuret Pep 150 pg/mL Total Protein (6.3-8.2) g/dL Albumin (3.5-5.0) g/dL - Radiology Data Radiology results: report reviewed (Chest x-rays negative for acute disease), image reviewed Critical Care Time Critical Care Time: Yes Total Critical Care Time: 31 Disposition Clinical Impression: Acute exacerbation of chronic obstructive airways disease Disposition: ADMITTED IP TO THIS HOSP Condition: Serious Is patient prescribed a controlled substance at d/c from ED?: No
[2018-03-06 06:24] LABS: Albumin 3.5 g/dL (3.5-5.0); Calcium 10.8 mg/dL (8.4-10.2); Magnesium 1.8 mg/dL (1.6-2.3); Total Bilirubin 0.5 mg/dL (0.2-1.3); Total Protein 6.1 g/dL (6.3-8.2)
[2018-03-06 06:27] LABS: Creatine Kinase 33 U/L (30-135)
[2018-03-06 06:40] LABS: Creatine Kinase MB 0.6 ng/mL (0.0-2.4); Troponin I <0.012 ng/mL (0.000-0.034)
[2018-03-06] MEDS ORDERED: POTASSIUM BICARBONATE/CIT AC 20 MEQ TABLET.EFF PO ONE (06:41)
[2018-03-06 06:43] LABS: Partial Thromboplastin Time 21.2 sec (22.0-30.0)
[2018-03-06] MEDS: SODIUM CHLORIDE 0.9% 1,000 ML IV SCH ×2 (08:12→17:05)
[2018-03-06] MEDS: INSULIN ASPART 100 UNIT/ML 1 ML 10 ML VIAL SQ SCH ×4 (08:13→20:40)
[2018-03-06] MEDS: IPRATROPIUM-ALBUTEROL 3 ML NEB INHALATION SCH ×5 (08:34→23:29)
[2018-03-06] MEDS: ENOXAPARIN 40 MG/0.4 ML SYRINGE SQ SCH (09:21)
[2018-03-06] MEDS ORDERED: ALPRAZolam 0.5 MG TAB PO PRN (11:04)
[2018-03-06 11:41] LABS: Glucose,Whole Blood 172 mg/dL (75-99)
[2018-03-06] MEDS ORDERED: ALBUTEROL NEBULIZED 2.5 MG/3 ML INHALATION PRN (12:21)
[2018-03-06] MEDS: methylPREDNISolone SOD SUCCI 125 MG/2 ML VIAL IV SCH ×2 (12:37→17:38)
[2018-03-06] MEDS: HYDROcodone/APAP 10-325MG 1 EACH TAB PO PRN ×2 (12:43→19:56)
--- NOTE | 2018-03-06 13:28 | P.CNPUL ---
History of Present Illness Consult date: 03/06/18 Reason for consult: dyspnea, COPD History of present illness: 67-year-old here patient with known history of advanced COPD who was having shortness of breath over the past 3 weeks. She had seen her primary care physician she was given a prednisone burst taper. She was improving however yesterday she took a turn for the worse. She started having increased shortness of breath. She was using her breathing medications frequently and she end up any murmurs department with hypoxemia and respiratory distress. She was admitted for diagnosis and treatment of COPD exacerbation. White cell count is at 10.8. Normal renal function. Negative cardiac enzymes. Chest x- ray showing chronic COPD without any acute abnormalities. She is independent. She has been maintained on a combination of Spiriva, Brovana and Pulmicort on outpatient basis and albuterol rescue inhaler when necessary. She has been also chronically steroid dependent at one point and she was gradually weaned off the steroids. She has a large goiter which is nonobstructive at this point that she is being treated for multinodular goiter and hyperthyroidism with methimazole. She has also chronic anxiety. She has quit smoking for now. No chest pain. No altered mentation. No nausea or vomiting. No other complaints otherwise for now. Note that the patient has severe COPD and she is oxygen dependent at 2 L per minute nasal cannula. Her most recent FEV1 is normal to 37 % of predicted. Review of Systems Patient reports lethargy. She reports cough and shortness of breath. She reports back pain. She reports no dry eyes, no vision change, and no irritation. She reports no difficulty hearing and no ear pain. She reports no frequent nosebleeds, no nose problems, and no sinus problems. She reports no sore throat, no bleeding gums, no snoring, no dry mouth, no mouth ulcers, no oral abnormalities, and no teeth problems. She reports no chest pain, no arm pain on exertion, no shortness of breath when walking, no shortness of breath when lying down, no palpitations, and no known heart murmur. She reports no abdominal pain, no nausea, no vomiting, no constipation, normal appetite, no diarrhea, not vomiting blood, no dyspepsia, and no GERD. She reports no incontinence, no difficulty urinating, no hematuria, and no increased frequency. She reports no abnormal mole, no jaundice, no rashes, and no laceration. She reports no loss of consciousness, no weakness, no numbness, no seizures, no dizziness, no migraines, no headaches, and no tremor. She reports no depression, no sleep disturbances, feeling safe in a relationship, no alcohol abuse, no anxiety, no hallucinations, and no suicidal thoughts. She reports no fatigue. She reports no swollen glands, no bruising, and no excessive bleeding. She reports no runny nose, no sinus pressure, no itching, no hives, and no frequent sneezing. 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 History of Any Multi-Drug Resistant Organisms: None Reported Past Surgical History: Cholecystectomy, Hysterectomy, Orthopedic Surgery Additional Past Surgical History / Comment(s): R nephrectomy, 2011 laparotomy with lysis of adhesions causing bowel obstruction. L shoulder and collar bone surgery-pt states she has hardware, colonoscopies with polypectomy, bilateral cataract surgery with lens implants. Past Anesthesia/Blood Transfusion Reactions: No Reported Reaction Additional Past Anesthesia/Blood Transfusion Reaction / Comment(s): Pt has never received blood. Smoking Status: Former smoker - Past Family History Father Family Medical History: Cancer Additional Family Medical History / Comment(s): Pancreatic cancer and passed when he was 58 Mother Family Medical History: No Reported History Additional Family Medical History / Comment(s): None Medications and Allergies Home Medications Medication Instructions Recorded Confirmed Type Montelukast [Singulair] 10 mg PO HS@2130 05/04/14 03/06/18 History Tiotropium [place] [Spiriva] 1 cap INHALATION RT-DAILY@0800 05/04/14 03/06/18 History Aspirin EC [Ecotrin Low Dose] 81 mg PO Q48H 10/22/14 03/06/18 History Budesonide [Pulmicort] 1 mg INHALATION RT-BID@1000,1400 10/22/14 03/06/18 History Albuterol Nebulized [Ventolin 2.5 mg INHALATION 03/25/17 03/06/18 History Nebulized] RT-QID@08,12,17,21 Albuterol Sulfate [Proair Hfa] 2 puff INHALATION RT-QID PRN 03/25/17 03/06/18 History Arformoterol Tartrate [Brovana] 15 mcg INHALATION RT-BID@0800,1700 03/25/1704/13 History Calcium Carbonate/Vitamin D3 1 tab PO DAILY@1700 03/25/17 03/06/18 History [Calcium 600-Vit D3 200 Tablet] DULoxetine HCL [Cymbalta] 60 mg PO DAILY@0800 03/25/17 03/06/18 History Metoprolol Succinate [Toprol XL] 25 mg PO HS@1800 03/25/17 03/06/18 History amLODIPine [Norvasc] 10 mg PO HS@1800 03/25/17 03/06/18 History Hydrocodone/Acetaminophen [[place] 1 tab PO Q6H PRN 07/08/17 03/06/18 History 10-325] Methimazole [Tapazole] 5 mg PO HS 07/08/17 03/06/18 History Atorvastatin [Lipitor] 10 mg PO HS 09/20/17 03/06/18 History ALPRAZolam [Xanax] 0.5 mg PO DAILY PRN 03/06/18 03/06/18 History DULoxetine HCL [Cymbalta] 30 mg PO DAILY@0803/06/18 03/06/18 History Temazepam [Restoril] 15 mg PO HS 03/06/18 03/06/18 History Allergies Allergy/AdvReac Type Severity Reaction Status Date / Time Influenza Virus Vaccines Allergy Dyspnea Verified 03/06/18 07:06 hydromorphone [From Dilaudid] AdvReac Hallucinati Verified 03/06/18 07:06 ons Physical Exam Vitals: Vital Signs Temp Pulse Pulse Resp BP BP Pulse Ox 03/06/18 12:11 96 03/06/18 12:00 96 03/06/18 08:45 100 03/06/18 08:35 100 03/06/18 07:55 97.6 F 102 H 14 146/72 94 L 03/06/18 06:50 105 H 22 159/79 98 03/06/18 06:17 100 03/06/18 06:01 90 03/06/18 05:45 90 03/06/18 05:39 98.0 F 95 22 146/76 88 L Intake and Output 03/05/18 03/06/18 03/06/18 22:59 06:59 14:59 Intake Total 300 Balance 300 Intake: Amount of Fluid Infused ( 300 ml) Other: Voiding Method Toilet Weight 63.503 kg General Appearance no diaphoresis, dyspnea, pallor, or respiratory distress and speech not interrupted by breaths, not cachectic, well nourished, and appears well. HEENT goiter, multinodular. Chest no retractions, rhonchi, hyperinflation, sternocleidomastoid muscle contractions, supraclavicular retractions, intercostal retractions, or decreased air movement and barrel chest , prolonged expiratory wheezing, and decreased air movement. Heart no right ventricular heave, distant heart sounds, or s3 gallop and Murmurs: Unspecified Location: Systolic: Grade 0 / IV and (normal) jugular vein: jugular venous distention: by 0cm. GI bowel sounds: hyperactive (borborygmi) and diminished or absent. Extremities no cyanosis, clubbing, or edema; trace edema. Neurologic no somnolence, confusion, or decreased mental status. Skin: General Appearance normal and (normal) normal except as noted. Results - Laboratory Findings CBC and BMP: 03/06/18 05:53 03/06/18 05:53 PT/INR, D-dimer PT 9.8 sec (9.0-12.0) 03/06/18 05:53 INR 1.0 (<1.2) 03/06/18 05:53 Abnormal lab findings: Abnormal Labs 03/06/18 03/06/18 03/06/18 05:53 05:53 05:53 WBC 10.8 H Neutrophils # 8.3 H APTT 21.2 L Potassium 3.0 L Carbon Dioxide 31 H BUN 19 H Glucose 109 H POC Glucose (mg/dL) Calcium 10.8 H AST 13 L Total Protein 6.1 L 03/06/18 11:40 WBC Neutrophils # APTT Potassium Carbon Dioxide BUN Glucose POC Glucose (mg/dL) 172 H Calcium AST Total Protein - Diagnostic Findings Chest x-ray: image reviewed Assessment and Plan Plan: 1. Acute COPD exacerbation in a patient with known history of Severe chronic obstructive pulmonary disease -and the patient failed outpatient treatment regarding her COPD exacerbation. Chest x-rays clear of any pulmonary infiltrates. She is on oxygen 2 L/m nasal cannula. FEV1 is normal of 37% of predicted at baseline. She is back to her usual routine respiratory medication which included a combination of Brovana and Pulmicort neb last treatment twice a day, Spiriva one inhalation day and albuterol solution as needed. J44.9: Chronic obstructive pulmonary disease, unspecified 2. Chronic hypoxemic respiratory failure - continue oxygen at 2 L/m nasal cannula. J96.11: Chronic respiratory failure with hypoxia 3. Total nephrectomy - the patient has undergone a nephrectomy and this was strictly for donation. Follow-up renal function will be checked to her primary care physician. the kidney function is normal for now with a creatinine of 0.9 and GFR above 60. Z90.5: Acquired absence of kidney 4. Compression fracture of thoracic vertebra - this patient is at an increased risk of having osteoporosis. We'll order a baseline bone densitometry. She is on a calcium and vitamin D supplements. she is also seeing Dr. Seay regarding osteoporosis and thyroid disease S22.009A: Unspecified fracture of unspecified thoracic vertebra, initial encounter for closed fracture 5. Anxiety disorder - continue Xanax, in combination with Cymbalta 90 mg by mouth daily. F41.9: Anxiety disorder, unspecified 6. Non-toxic multinodular goiter - being followed up by Dr. Jorge Seay. The latest thyroid function tests from January 2016 was within normal limits. The Patient was reevaluated by endocrinology and she was told to have a mild component of Graves' disease and she is currently on methimazole 5 mg on a daily basis. E04.2: Nontoxic multinodular goiter 7. Compression fracture of lumbar spine - Compression fracture of L1 spine (30%) M48.56XA: Collapsed vertebra, not elsewhere classified, lumbar region, initial encounter for fracture 8. Depressive disorder - continue Cymbalta, stable F32.9: Major depressive disorder, single episode, unspecified 9. Aneurysm of thoracic aorta - The patient has mild prominence of the descending thoracic aorta with an AP diameter of 4.3 cm in size in the abdominal aorta tapers normally based on a CAT scan of the abdomen and pelvis and chest that was done in February 2017. This was a CTA study intended to look for aneurysms. I71.2: Thoracic aortic aneurysm, without rupture 10. Insomnia - The patient has chronic insomnia secondary to her comorbidities. Plan Continue bronchodilators. Continue systemic steroids. Resume outpatient medications. We'll continue to follow. She is not smoking. She remains a bit depressed because of the loss of her to come to case of lung cancer. We 'll continue to follow.
[2018-03-06] MEDS: DULoxetine HCL 30 MG CAPSULE.DR PO SCH (13:40)
[2018-03-06 14:10] VITALS: BMI 24.7
[2018-03-06] MEDS ORDERED: ALBUTEROL NEBULIZED 2.5 MG/3 ML INHALATION SCH (17:00)
[2018-03-06] MEDS: CALCIUM CARB-VIT D 500MG-200UN 1 EACH TAB PO SCH (17:06)
[2018-03-06] MEDS: amLODIPine 10 MG TAB PO SCH (17:06)
[2018-03-06 17:08] LABS: Glucose,Whole Blood 198 mg/dL (75-99)
[2018-03-06 17:38] LABS: Hemoglobin A1C 5.5 % (4.0-6.0)
[2018-03-06] MEDS: METOPROLOL SUCCINATE (ER) 25 MG TAB.ER.24H PO SCH (17:41)
[2018-03-06] MEDS ORDERED: ONDANSETRON 4 MG/2 ML VIAL IVP PRN (19:35)
[2018-03-06] MEDS ORDERED: ACETAMINOPHEN TAB 325 MG TAB PO PRN (19:35)
[2018-03-06] MEDS ORDERED: MELATONIN 3 MG TABLET PO PRN (19:35)
[2018-03-06] MEDS ORDERED: LACTULOSE 20 GM/30 ML CUP PO PRN (19:35)
[2018-03-06] MEDS ORDERED: CALCIUM CARBONATE 500 MG CHEWABLE PO PRN (19:35)
[2018-03-06] MEDS ORDERED: FORMOTEROL FUMARATE 20 MCG/2 ML NEBU INHALATION SCH (20:00)
[2018-03-06] MEDS ORDERED: BUDESONIDE 1 MG/2 ML NEBU INHALATION SCH (20:00)
[2018-03-06 20:14] LABS: Glucose,Whole Blood 249 mg/dL (75-99)
--- NOTE | 2018-03-06 20:14 | HP ---
HISTORY AND PHYSICAL DATE OF ADMISSION: 03/06/18. PRESENTING COMPLAINT: Short of breath. HISTORY OF PRESENTING COMPLAINT: This is a very pleasant 67-year-old patient of Dr. Lopez. She also follows with tire tester Dr. Sánchez. Chronic stable medical conditions include GERD, hyperlipidemia, hypertension, hypothyroid, on home oxygen 2 L has been intubated tube in the past, solitary left kidney, diverticulosis, and chronic arthritis and chronic tenderness. The patient is an ex-smoker. The patient has been getting short of breath for few weeks and 2 weeks ago, decided to go down to see Dr. Lopez. Was given steroids, did feel a bit better. Then again had a relapse became more short of breath, wheezing, cough, occasional sputum. No fever. No chills. Decreased appetite. Tired, run down and decided to come in, found to have COPD exacerbation and admitted for the same. REVIEW OF SYSTEMS: CONSTITUTIONAL: Tired HEENT: Chronic tinnitus. RESPIRATORY: As above. CARDIOVASCULAR: None. GASTROINTESTINAL: Some heartburn. GENITOURINARY: None. MUSCULOSKELETAL: Aches and pains in different joints. DERMATOLOGICAL, HEMATOLOGIC, LYMPHATIC: None. PSYCHIATRY: A bit anxious. NEUROLOGICAL: None. PAST MEDICAL HISTORY: COPD, GERD, hard of hearing, hyperlipidemia, hypertension, hypothyroid, home oxygen 2 L, right kidney donated to her son, grave's disease, bowel obstruction, diverticulosis, kidney stones, UTI, chronic left shoulder pain, migraine in the past, bilateral tinnitus. PAST SURGICAL HISTORY: Cholecystectomy, hysterectomy, right nephrectomy kidney donated, lysis of adhesions in the abdomen, left shoulder collarbone surgery, bilateral cataract surgery. PSYCH HISTORY: Depression. SOCIAL HISTORY: The patient's spouse in October of this year. Home oxygen. Son lives at home. The patient has smoked for 37 years, stopped in 2012. Alcohol none. FAMILY HISTORY: Pancreatic cancer. HOME MEDICATIONS: 1. Norvasc 10 mg p.o. at bedtime. 2. Spiriva 1 capsule daily. 3. Restoril 50 mg at bedtime. 4. Singulair 10 mg p.o. q.h.s. 5. Toprol-XL 25 mg p.o. q.h.s. 6. Tapazole 5 mg p.o. q.h.s. 7. [place] 10, 1 tablet p.o. q.6h p.r.n. 8. Cymbalta 90 mg a day. 9. Calcium 600, 1 tablet p.o. daily. 10.Pulmicort 1 mg nebulizer b.i.d. 11.Lipitor 10 mg q.h.s. 12.Aspirin 81 mg p.o. q.48 hours. 13.Brovana 15 mcg b.i.d. 14.ProAir 2 puffs p.o. q.i.d. 15.Ventolin 2.5 nebulizer q.i.d. 16.Xanax 0.5 p.o. daily p.r.n. ALLERGIES: To INFLUENZA AND DILAUDID. PHYSICAL EXAMINATION: On exam, vital signs on presentation: Temperature 98, pulse 95, respirations 22, blood pressure 146/96, pulse ox 88 percent room air. GENERAL APPEARANCE: Average build, sitting up, short of breath at rest. EYES: Pupils equal. Conjunctivae normal. HEENT: External appearance of nose and ears normal. Oral cavity normal. NECK: JVD not raised. Mass not palpable. Respiratory effort increased. LUNGS: Diminished breath sounds, prolonged expiration and wheezing. The patient not able to speak in full sentences. CARDIOVASCULAR: First and second sounds normal. Minimal edema. ABDOMEN: Soft, nontender. Liver and spleen not palpable. LYMPHATIC: No lymph node palpable in neck or axillae. PSYCHIATRY: Alert and oriented x3. Mood and affect normal. NEUROLOGICAL: Pupils equal. Cranial nerves grossly intact. Power and sensation grossly intact. INVESTIGATIONS: Labs reviewed in the context of assessment and plan. White count 10.8, hemoglobin 11.8, potassium 3, BUN 19, creatinine 0.92. Accu-Cheks 132/98. Troponin less than 0.012. ProBNP 150. EKG tracing interpreted by me shows sinus rhythm. Chest x-ray film interpreted by me shows prominent pulmonary artery. Some crowding at the bases. ASSESSMENT: 1. Acute severe chronic obstructive pulmonary disease exacerbation in a patient who has failed outpatient treatment in an ex-smoker. 2. Chronic hypoxic respiratory failure on 2 L oxygen at home secondary to chronic obstructive pulmonary disease. 3. 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 4. Chronic compression fracture of thoracic vertebra. 5. Generalized anxiety disorder not otherwise specified. 6. Nontoxic multinodular goiter with hyperthyroidism. 7. Depression, not otherwise specified. 8. Thoracic aortic aneurysm being followed. 9. Chronic insomnia secondary to multiple medical problems. 10.Chronic hard of hearing. 11.Colonic diverticulosis asymptomatic. 12.Chronic bilateral tinnitus. 13.Hyperlipidemia. 14.Chronic essential hypertension. PLAN: Home medications are resumed. The patient is put on breathing treatment, DuoNeb and IV Solu-Medrol and also inhaled steroids. I do not see the need for antibiotics. We will also humidify the oxygen. Accu-Cheks will be followed with sliding scale insulin. Care was discussed the patient. Dr. Sánchez from Pulmonary was consulted. Care was discussed with the patient. MMODL / IJN: [id number] /
[2018-03-06] MEDS: FORMOTEROL FUMARATE 20 MCG/2 ML NEBU INHALATION SCH (20:23)
[2018-03-06] MEDS: methylPREDNISolone SOD SUCCI 40 MG/ML 1 ML VIAL IV SCH ×2 (20:40→23:40)
[2018-03-06] MEDS: ATORVASTATIN 10 MG TAB PO SCH (20:41)
[2018-03-06] MEDS: TEMAZEPAM 15 MG CAP PO SCH (20:41)
[2018-03-06] MEDS: guaiFENesin 600 MG TABLET.ER PO SCH (20:41)
[2018-03-06] MEDS: MONTELUKAST 10 MG TAB PO SCH (20:41)
[2018-03-06] MEDS: METHIMAZOLE 5 MG TAB PO SCH (20:41)
[2018-03-07] MEDS: IPRATROPIUM-ALBUTEROL 3 ML NEB INHALATION SCH ×7 (04:30→23:38)
[2018-03-07] MEDS: SODIUM CHLORIDE 0.9% 1,000 ML IV SCH ×3 (05:35→23:48)
[2018-03-07 06:55] LABS: Glucose,Whole Blood 155 mg/dL (75-99)
[2018-03-07] MEDS ORDERED: DULoxetine HCL 30 MG CAPSULE.DR PO SCH (08:00)
[2018-03-07] MEDS ORDERED: DULoxetine HCL 60 MG CAPSULE.DR PO SCH (08:00)
[2018-03-07] MEDS: INSULIN ASPART 100 UNIT/ML 1 ML 10 ML VIAL SQ SCH ×4 (08:22→21:53)
[2018-03-07] MEDS: DULoxetine HCL 30 MG CAPSULE.DR PO SCH (08:23)
[2018-03-07] MEDS: methylPREDNISolone SOD SUCCI 40 MG/ML 1 ML VIAL IV SCH ×2 (08:23→21:52)
[2018-03-07] MEDS: ASPIRIN 81 MG PO SCH (08:24)
[2018-03-07] MEDS: ENOXAPARIN 40 MG/0.4 ML SYRINGE SQ SCH (08:24)
[2018-03-07] MEDS: guaiFENesin 600 MG TABLET.ER PO SCH ×2 (08:25→21:52)
[2018-03-07] MEDS: ALPRAZolam 0.25 MG TAB PO PRN ×2 (08:29→16:37)
[2018-03-07] MEDS: FORMOTEROL FUMARATE 20 MCG/2 ML NEBU INHALATION SCH ×2 (08:49→20:00)
[2018-03-07] MEDS: BUDESONIDE 1 MG/2 ML NEBU INHALATION SCH ×3 (08:49→23:22)
[2018-03-07] MEDS: HYDROcodone/APAP 10-325MG 1 EACH TAB PO PRN ×2 (09:25→18:16)
[2018-03-07 11:02] LABS: Glucose,Whole Blood 125 mg/dL (75-99)
--- NOTE | 2018-03-07 12:50 | P.PN ---
Subjective Progress Note Date: 03/07/18 Principal diagnosis: Acute COPD exacerbation with acute on chronic hypoxemic respiratory failure 67-year-old here patient with known history of advanced COPD who was having shortness of breath over the past 3 weeks. She had seen her primary care physician she was given a prednisone burst taper. She was improving however yesterday she took a turn for the worse. She started having increased shortness of breath. She was using her breathing medications frequently and she end up any murmurs department with hypoxemia and respiratory distress. She was admitted for diagnosis and treatment of COPD exacerbation. White cell count is at 10.8. Normal renal function. Negative cardiac enzymes. Chest x- ray showing chronic COPD without any acute abnormalities. She is independent. She has been maintained on a combination of Spiriva, Brovana and Pulmicort on outpatient basis and albuterol rescue inhaler when necessary. She has been also chronically steroid dependent at one point and she was gradually weaned off the steroids. She has a large goiter which is nonobstructive at this point that she is being treated for multinodular goiter and hyperthyroidism with methimazole. She has also chronic anxiety. She has quit smoking for now. No chest pain. No altered mentation. No nausea or vomiting. No other complaints otherwise for now. Note that the patient has severe COPD and she is oxygen dependent at 2 L per minute nasal cannula. Her most recent FEV1 is normal to 37 % of predicted. On 03/07/2018 patient seen in follow-up. Her breathing is easier today, and patient is at times able to bring up some sputum but not expectorated. Denies any fever or chills, denies any chest pain, denies any chest wall tenderness, no hemoptysis, pulse ox on 3 L per nasal cannula is 92%. Lung sounds are positive for diffuse wheezes are positive for 60 maneuver, and some scattered rhonchi, overall improvement noted in bronchospasticticity. No new labs no chest x-rays. Patient has been treated with a combination of nebulized bronchodilators, IV steroids, Mucinex, and she is responding to treatments. She had headache today, possibly related to mild hypertension, blood pressure is 154/89. Steroids have been tapered down to 40 mg every 8 hours, we will further decrease them down to every 12 hours. Objective - Vital Signs Vital signs: Vital Signs Temp 97.4 F L 03/07/18 12:06 Pulse 99 03/07/18 12:26 Resp 16 03/07/18 12:26 BP 154/89 03/07/18 12:06 Pulse Ox 92 L 03/07/18 12:06 Intake & Output 03/06/18 03/07/18 03/07/18 18:59 06:59 18:59 Intake Total 300 2400 Balance 300 2400 Weight 63.503 kg Intake: Amount of Fluid Infused ( 300 ml) Intake, IV Titration 1600 Amount Sodium Chloride 0.9% 1, 1600 000 ml @ 100 mls/hr IV . Q10H ALEX Rx#:[id number] Oral 800 Other: Voiding Method Toilet Toilet Bedside Commode # Voids 3 2 1 - Exam General Appearance no diaphoresis, dyspnea, pallor, or respiratory distress and speech not interrupted by breaths, not cachectic, well nourished, and appears well. HEENT goiter, multinodular. Chest no retractions, rhonchi, hyperinflation , sternocleidomastoid muscle contractions, supraclavicular retractions, intercostal retractions, or decreased air movement and barrel chest, prolonged expiratory wheezing, and decreased air movement. Heart no right ventricular heave, distant heart sounds, or s3 gallop and Murmurs: Unspecified Location: Systolic: Grade 0 / IV and (normal) jugular vein: jugular venous distention: by 0cm. GI bowel sounds: hyperactive (borborygmi) and diminished or absent. Extremities no cyanosis, clubbing, or edema; trace edema. Neurologic no somnolence, confusion, or decreased mental status. Skin: General Appearance normal and (normal) normal except as noted. - Labs CBC & Chem 7: 03/06/18 05:53 03/06/18 05:53 Labs: Abnormal Lab Results - Last 24 Hours (Table) 03/06/18 03/06/18 03/07/18 Range/Units 17:06 20:11 06:54 POC Glucose (mg/dL) 198 H 249 H 155 H (75-99) mg/dL 03/07/18 Range/Units 10:59 POC Glucose (mg/dL) 125 H (75-99) mg/dL Assessment and Plan Plan: Assessment: 1. Acute COPD exacerbation in a patient with known history of Severe chronic obstructive pulmonary disease -and the patient failed outpatient treatment regarding her COPD exacerbation. Chest x-rays clear of any pulmonary infiltrates. She is on oxygen 2 L/m nasal cannula. FEV1 is normal of 37% of predicted at baseline. She is back to her usual routine respiratory medication which included a combination of Brovana and Pulmicort neb last treatment twice a day, Spiriva one inhalation day and albuterol solution as needed. J44.9: Chronic obstructive pulmonary disease, unspecified 2. Chronic hypoxemic respiratory failure - continue oxygen at 2 L/m nasal cannula. J96.11: Chronic respiratory failure with hypoxia 3. Total nephrectomy - the patient has undergone a nephrectomy and this was strictly for donation. Follow-up renal function will be checked to her primary care physician. the kidney function is normal for now with a creatinine of 0.9 and GFR above 60. Z90.5: Acquired absence of kidney 4. Compression fracture of thoracic vertebra - this patient is at an increased risk of having osteoporosis. We'll order a baseline bone densitometry. She is on a calcium and vitamin D supplements. she is also seeing Dr. Seay regarding osteoporosis and thyroid disease S22.009A: Unspecified fracture of unspecified thoracic vertebra, initial encounter for closed fracture 5. Anxiety disorder - continue Xanax, in combination with Cymbalta 90 mg by mouth daily. F41.9: Anxiety disorder, unspecified 6. Non-toxic multinodular goiter - being followed up by Dr. Jorge Seay. The latest thyroid function tests from January 2016 was within normal limits. The Patient was reevaluated by endocrinology and she was told to have a mild component of Graves' disease and she is currently on methimazole 5 mg on a daily basis. E04.2: Nontoxic multinodular goiter 7. Compression fracture of lumbar spine - Compression fracture of L1 spine (30%) M48.56XA: Collapsed vertebra, not elsewhere classified, lumbar region, initial encounter for fracture 8. Depressive disorder - continue Cymbalta, stable F32.9: Major depressive disorder, single episode, unspecified 9. Aneurysm of thoracic aorta - The patient has mild prominence of the descending thoracic aorta with an AP diameter of 4.3 cm in size in the abdominal aorta tapers normally based on a CAT scan of the abdomen and pelvis and chest that was done in February 2017. This was a CTA study intended to look for aneurysms. I71.2: Thoracic aortic aneurysm, without rupture 10. Insomnia - The patient has chronic insomnia secondary to her comorbidities. Plan Patient is breathing easier today, less bronchospastic and congested. We'll decrease the IV Solu-Medrol to 40 mg every 12 hours, patient complained of some headaches, possibly related to mild hypertension likely steroid-induced. Continue monitoring vital signs, neurological status. No altered mentation. Continue nebulized bronchodilators. Increase activity as tolerated. I performed a history & physical examination of the patient and discussed their management with my nurse practitioner, Cher Allen. I reviewed the nurse practitioner's note and agree with the documented findings and plan of care. Lung sounds are positive for scattered wheezes on forced exhale maneuver, and some scattered rhonchi. The findings and the impression was discussed with the patient. I attest to the documentation by the nurse practitioner. Time with Patient: Less than 30
[2018-03-07] MEDS: CALCIUM CARB-VIT D 500MG-200UN 1 EACH TAB PO SCH (16:37)
[2018-03-07 16:48] LABS: Glucose,Whole Blood 159 mg/dL (75-99)
[2018-03-07] MEDS: amLODIPine 10 MG TAB PO SCH (17:54)
[2018-03-07] MEDS: METOPROLOL SUCCINATE (ER) 25 MG TAB.ER.24H PO SCH (17:54)
[2018-03-07 21:02] LABS: Glucose,Whole Blood 140 mg/dL (75-99)
[2018-03-07] MEDS: TEMAZEPAM 15 MG CAP PO SCH (21:52)
[2018-03-07] MEDS: ATORVASTATIN 10 MG TAB PO SCH (21:52)
[2018-03-07] MEDS: MONTELUKAST 10 MG TAB PO SCH (21:53)
[2018-03-07] MEDS: METHIMAZOLE 5 MG TAB PO SCH (21:53)
[2018-03-07] MEDS ORDERED: IPRATROPIUM-ALBUTEROL 3 ML NEB INHALATION PRN (23:30)
[2018-03-08] MEDS: IPRATROPIUM-ALBUTEROL 3 ML NEB INHALATION SCH ×3 (03:22→10:53)
[2018-03-08 06:55] LABS: Glucose,Whole Blood 143 mg/dL (75-99)
[2018-03-08] MEDS: FORMOTEROL FUMARATE 20 MCG/2 ML NEBU INHALATION SCH (06:57)
[2018-03-08] MEDS: BUDESONIDE 1 MG/2 ML NEBU INHALATION SCH (06:58)
[2018-03-08] MEDS: ENOXAPARIN 40 MG/0.4 ML SYRINGE SQ SCH (08:00)
[2018-03-08] MEDS ORDERED: IPRATROPIUM-ALBUTEROL 3 ML NEB INHALATION SCH (08:00)
[2018-03-08] MEDS: DULoxetine HCL 30 MG CAPSULE.DR PO SCH (08:00)
[2018-03-08] MEDS: guaiFENesin 600 MG TABLET.ER PO SCH (08:02)
[2018-03-08] MEDS: HYDROcodone/APAP 10-325MG 1 EACH TAB PO PRN (08:02)
[2018-03-08] MEDS: ASPIRIN 81 MG PO SCH (08:02)
[2018-03-08] MEDS: SODIUM CHLORIDE 0.9% 1,000 ML IV SCH (08:03)
[2018-03-08] MEDS: INSULIN ASPART 100 UNIT/ML 1 ML 10 ML VIAL SQ SCH ×2 (08:04→12:57)
[2018-03-08] MEDS: methylPREDNISolone SOD SUCCI 40 MG/ML 1 ML VIAL IV SCH (08:07)
[2018-03-08 09:31] LABS: Albumin 3.9 g/dL (3.5-5.0); Calcium 9.7 mg/dL (8.4-10.2); Potassium 3.2 mmol/L (3.5-5.1); Total Bilirubin 0.4 mg/dL (0.2-1.3); Total Protein 6.4 g/dL (6.3-8.2)
[2018-03-08] MEDS ORDERED: Potassium Replacement Protocol 1 EACH MISC MISCELLANE PRN (11:18)
[2018-03-08 11:22] LABS: Glucose,Whole Blood 123 mg/dL (75-99)
--- NOTE | 2018-03-08 11:31 | PN ---
PROGRESS NOTE DATE OF SERVICE: 03/07/2018 PRESENTING COMPLAINT: Short of breath. INTERVAL HISTORY: Patient admitted with COPD exacerbation and feeling much better. Slight cough. Eating better. Less wheezing. No fever or chills. REVIEW OF SYSTEMS: Done for constitutional, cardiovascular, GI, pulmonary; relevant findings above. CURRENT MEDICATIONS: Reviewed that includes DuoNeb and IV Solu-Medrol. PHYSICAL EXAMINATION: Temperature 97.4, pulse 96, respirations 18, blood pressure 150/89, pulse 92% on 3 L. GENERAL APPEARANCE: Sitting up, tired. EYES: Pupils are equal. Conjunctivae normal. HEENT: External nose and ears normal. Oral cavity normal. NECK: JVD not raised. Mass not palpable. RESPIRATORY: Decreased breath sounds. Prolonged expiration. Less wheezing. CARDIOVASCULAR: First and second sounds normal, no edema. ABDOMEN: Soft, nontender. Liver and spleen not palpable. PSYCHIATRY: Alert and oriented x3. Mood and affect normal. INVESTIGATIONS: Accu-Cheks are noted. ASSESSMENT: 1. Acute severe chronic obstructive pulmonary disease exacerbation in a patient who failed outpatient treatment in an ex-smoker with clinical response. 2. Chronic hypoxic respiratory failure 2 L oxygen at home secondary to chronic obstructive pulmonary disease. 3. 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 4. Chronic compression fractures, thoracic vertebra. 5. Generalized anxiety disorder, not otherwise specified. 6. Nontoxic multinodular goiter with hyperthyroidism. 7. Depression, not otherwise specified. 8. Thoracic aortic aneurysm being followed as an outpatient. 9. Chronic insomnia secondary to multiple medical problems. 10.Chronic hard of hearing. 11.Colonic diverticulosis asymptomatic. 12.Chronic bilateral tinnitus. 13.Hyperlipidemia. 14.Essential hypertension. PLAN: Continue medication and treatment plan. Solu-Medrol will be scaled back. The patient showed significant improvement and keen to go home tomorrow, which may be appropriate. MMODL / IJN: [id number] /
[2018-03-08] MEDS: POTASSIUM CHLORIDE ER 20 MEQ TAB.ER PO SCH ×2 (12:17→13:20)
[2018-03-08 12:45] VITALS: BP 148/96; PULSE 86; RESP 20; TEMP 97.5
--- NOTE | 2018-03-08 12:56 | P.PN ---
Subjective Progress Note Date: 03/08/18 67-year-old here patient with known history of advanced COPD who was having shortness of breath over the past 3 weeks. She had seen her primary care physician she was given a prednisone burst taper. She was improving however yesterday she took a turn for the worse. She started having increased shortness of breath. She was using her breathing medications frequently and she end up any murmurs department with hypoxemia and respiratory distress. She was admitted for diagnosis and treatment of COPD exacerbation. White cell count is at 10.8. Normal renal function. Negative cardiac enzymes. Chest x- ray showing chronic COPD without any acute abnormalities. She is independent. She has been maintained on a combination of Spiriva, Brovana and Pulmicort on outpatient basis and albuterol rescue inhaler when necessary. She has been also chronically steroid dependent at one point and she was gradually weaned off the steroids. She has a large goiter which is nonobstructive at this point that she is being treated for multinodular goiter and hyperthyroidism with methimazole. She has also chronic anxiety. She has quit smoking for now. No chest pain. No altered mentation. No nausea or vomiting. No other complaints otherwise for now. Note that the patient has severe COPD and she is oxygen dependent at 2 L per minute nasal cannula. Her most recent FEV1 is normal to 37 % of predicted. On 03/07/2018 patient seen in follow-up. Her breathing is easier today, and patient is at times able to bring up some sputum but not expectorated. Denies any fever or chills, denies any chest pain, denies any chest wall tenderness, no hemoptysis, pulse ox on 3 L per nasal cannula is 92%. Lung sounds are positive for diffuse wheezes are positive for 60 maneuver, and some scattered rhonchi, overall improvement noted in bronchospasticticity. No new labs no chest x-rays. Patient has been treated with a combination of nebulized bronchodilators, IV steroids, Mucinex, and she is responding to treatments. She had headache today, possibly related to mild hypertension, blood pressure is 154/89. Steroids have been tapered down to 40 mg every 8 hours, we will further decrease them down to every 12 hours. 03/08/2018 the patient is back to her baseline. She is breathing much more comfortable. No chest pain. She is ambulating and she is now having any significant rest or distress. No pleurisy. No hemoptysis. Wheezing has subsided significantly compared to yesterday. No other significant events overnight. She is in much better spirits for now. No headaches. No altered mentation. No stridor. No difficulty in swallowing. The patient has a normal set of electrolytes Objective - Vital Signs Vital signs: Vital Signs Temp 97.5 F L 03/08/18 12:43 Pulse 86 03/08/18 12:43 Resp 20 03/08/18 12:43 BP 148/96 03/08/18 12:43 Pulse Ox 94 L 03/08/18 12:43 Intake & Output 03/07/18 03/08/18 03/08/18 18:59 06:59 18:59 Intake Total 800 300 Balance 800 300 Intake: Intake, IV Titration 800 300 Amount Sodium Chloride 0.9% 1, 800 300 000 ml @ 100 mls/hr IV . Q10H [facility] Rx#:[id number] Other: Voiding Method Bedside Commode Bedside Commode Bedside Commode # Voids 4 1 - Exam General Appearance no diaphoresis, dyspnea, pallor, or respiratory distress and speech not interrupted by breaths, not cachectic, well nourished, and appears well. HEENT goiter, multinodular. Chest no retractions, rhonchi, hyperinflation , sternocleidomastoid muscle contractions, supraclavicular retractions, intercostal retractions, or decreased air movement and barrel chest, prolonged expiratory wheezing, and decreased air movement. Heart no right ventricular heave, distant heart sounds, or s3 gallop and Murmurs: Unspecified Location: Systolic: Grade 0 / IV and (normal) jugular vein: jugular venous distention: by 0cm. GI bowel sounds: hyperactive (borborygmi) and diminished or absent. Extremities no cyanosis, clubbing, or edema; trace edema. Neurologic no somnolence, confusion, or decreased mental status. Skin: General Appearance normal and (normal) normal except as noted. - Labs CBC & Chem 7: 03/06/18 05:53 03/08/18 08:12 Labs: Abnormal Lab Results - Last 24 Hours (Table) 03/07/18 03/07/18 03/08/18 Range/Units 16:47 21:01 06:53 Potassium (3.5-5.1) mmol/L BUN (7-17) mg/dL Glucose (74-99) mg/dL POC Glucose (mg/dL) 159 H 140 H 143 H (75-99) mg/dL 03/08/18 03/08/18 Range/Units 08:12 11:21 Potassium 3.2 L (3.5-5.1) mmol/L BUN 18 H (7-17) mg/dL Glucose 210 H (74-99) mg/dL POC Glucose (mg/dL) 123 H (75-99) mg/dL Assessment and Plan Plan: 1. Acute COPD exacerbation in a patient with known history of Severe chronic obstructive pulmonary disease -and the patient failed outpatient treatment regarding her COPD exacerbation. Chest x-rays clear of any pulmonary infiltrates. She is on oxygen 2 L/m nasal cannula. FEV1 is normal of 37% of predicted at baseline. She is back to her usual routine respiratory medication which included a combination of Brovana and Pulmicort neb last treatment twice a day, Spiriva one inhalation day and albuterol solution as needed. J44.9: Chronic obstructive pulmonary disease, unspecified 2. Chronic hypoxemic respiratory failure - continue oxygen at 2 L/m nasal cannula. J96.11: Chronic respiratory failure with hypoxia 3. Total nephrectomy - the patient has undergone a nephrectomy and this was strictly for donation. Follow-up renal function will be checked to her primary care physician. the kidney function is normal for now with a creatinine of 0.9 and GFR above 60. Z90.5: Acquired absence of kidney 4. Compression fracture of thoracic vertebra - this patient is at an increased risk of having osteoporosis. We'll order a baseline bone densitometry. She is on a calcium and vitamin D supplements. she is also seeing Dr. Seay regarding osteoporosis and thyroid disease S22.009A: Unspecified fracture of unspecified thoracic vertebra, initial encounter for closed fracture 5. Anxiety disorder - continue Xanax, in combination with Cymbalta 90 mg by mouth daily. F41.9: Anxiety disorder, unspecified 6. Non-toxic multinodular goiter - being followed up by Dr. Jorge Seay. The latest thyroid function tests from January 2016 was within normal limits. The Patient was reevaluated by endocrinology and she was told to have a mild component of Graves' disease and she is currently on methimazole 5 mg on a daily basis. E04.2: Nontoxic multinodular goiter 7. Compression fracture of lumbar spine - Compression fracture of L1 spine (30%) M48.56XA: Collapsed vertebra, not elsewhere classified, lumbar region, initial encounter for fracture 8. Depressive disorder - continue Cymbalta, stable F32.9: Major depressive disorder, single episode, unspecified 9. Aneurysm of thoracic aorta - The patient has mild prominence of the descending thoracic aorta with an AP diameter of 4.3 cm in size in the abdominal aorta tapers normally based on a CAT scan of the abdomen and pelvis and chest that was done in February 2017. This was a CTA study intended to look for aneurysms. I71.2: Thoracic aortic aneurysm, without rupture 10. Insomnia - The patient has chronic insomnia secondary to her comorbidities. Plan The patient is clinically much improved. She responded nicely to IV Solu Medrol. She'll can be discharged home on a prednisone burst taper an outpatient medication would include a combination of Spiriva, [place], Pulmicort , and albuterol solution on a when necessary. Complete a prednisone burst taper. Continue oxygen at 2 L per minute nasal cannula. She can follow-up with me in the office pH is not smoking. Overall condition is improved and stabilized.
--- NOTE | 2018-03-09 08:02 | DS ---
DISCHARGE SUMMARY DATE OF ADMISSION: 03/06/2018 DATE OF DISCHARGE: 03/08/2018 FINAL DIAGNOSES: 1. Acute severe chronic obstructive pulmonary disease exacerbation in a patient who failed outpatient treatment in an ex-smoker. 2. Chronic hypoxic respiratory failure on 2 L oxygen at home secondary to chronic obstructive pulmonary disease. 3. 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 4. Chronic compression fracture of thoracic vertebra. 5. Generalized anxiety disorder, not otherwise specified. 6. Nontoxic multinodular goiter with hyperthyroidism. 7. Depression, not otherwise specified. 8. Thoracic aortic aneurysm being followed as an outpatient. 9. Chronic insomnia secondary to multiple medical problems. 10.Chronic hard of hearing. 11.Colonic diverticulosis, asymptomatic. 12.Chronic bilateral tinnitus. 13.Hyperlipidemia. 14.Essential hypertension. HOSPITAL COURSE: This patient presented with shortness of breath, wheezing, cough, having failed outpatient treatment, was treated with inhaled steroids and bronchodilators. Doing much better by the time of discharge. CONSULTATION: Dr. Sánchez from Pulmonary. PHYSICAL EXAMINATION: On examination, temperature 97.5, pulse 86, respirations 20, blood pressure 148/96, pulse ox 94% on 3 L. LUNGS: Improved air entry. PSYCH: AO x3. DISCHARGE MEDICATIONS: 1. Singulair 10 mg p.o. at bedtime. 2. Spiriva 1 capsule daily. 3. Aspirin 81 mg every 48 hours. 4. Pulmicort 1 mg inhalation b.i.d. 5. Ventolin 2.5 q.i.d. 6. ProAir 2 puffs q.i.d. p.r.n. 7. Brovana 15 mcg b.i.d. 8. Vitamin D3 one tablet p.o. daily. 9. Cymbalta 60 mg daily. 10.Toprol XL 25 mg at bedtime. 11.Norvasc 10 mg p.o. at bedtime. 12.[place] 10 1 tablet q.6 p.r.n. 13.Tapazole 5 mg p.o. at bedtime. 14.Lipitor 10 mg p.o. at bedtime. 15.Xanax 0.5 p.o. daily p.r.n. 16.Cymbalta 30 mg p.o. daily. 17.Restoril 15 mg p.o. at bedtime. 18.Zofran 4 mg p.o. daily. 19.Prednisone taper. Follow up with Dr. Lopez in [address] Sánchez on 03/24/2018. Discussion and discharge planning more than 35 minutes. MMODL / IJN: [id number] /
[2018-03-09] MEDS ORDERED: predniSONE 20 MG TAB PO SCH (09:00)
== END 2018-03-08 14:03 | disposition home or self-care (01) | DRG 190 ==
LOC: EC 05:35 → 5MS5E 06:19
PROVIDERS: ADMIT Hospitalist; ATTEND Hospitalist
DX: J44.1 Chronic obstructive pulmonary disease with (acute) exacerbation (principal); J96.21 Acute and chronic respiratory failure with hypoxia; M48.54XA Collapsed vertebra, not elsewhere classified, thoracic region, initial encounter for fracture; E03.9 Hypothyroidism, unspecified; E04.2 Nontoxic multinodular goiter; E05.00 Thyrotoxicosis with diffuse goiter without thyrotoxic crisis or storm; E78.5 Hyperlipidemia, unspecified; F17.200 Nicotine dependence, unspecified, uncomplicated; F32.9 Major depressive disorder, single episode, unspecified; F41.1 Generalized anxiety disorder; F51.04 Psychophysiologic insomnia; H91.90 Unspecified hearing loss, unspecified ear; H93.13 Tinnitus, bilateral; I10 Essential (primary) hypertension; I71.2 Thoracic aortic aneurysm, without rupture; K21.9 Gastro-esophageal reflux disease without esophagitis; K57.30 Diverticulosis of large intestine without perforation or abscess without bleeding; M19.90 Unspecified osteoarthritis, unspecified site; M81.0 Age-related osteoporosis without current pathological fracture; Z96.1 Presence of intraocular lens; Z79.52 Long term (current) use of systemic steroids; Z79.899 Other long term (current) drug therapy; Z80.0 Family history of malignant neoplasm of digestive organs; Z87.01 Personal history of pneumonia (recurrent); Z87.442 Personal history of urinary calculi; Z90.5 Acquired absence of kidney; Z90.710 Acquired absence of both cervix and uterus; Z98.41 Cataract extraction status, right eye; Z98.42 Cataract extraction status, left eye; Z99.81 Dependence on supplemental oxygen; Z79.82 Long term (current) use of aspirin; Z79.51 Long term (current) use of inhaled steroids; Z88.5 Allergy status to narcotic agent; Z88.7 Allergy status to serum and vaccine; Z90.49 Acquired absence of other specified parts of digestive tract
CPT/HCPCS: 36415; 71045; 80053; 82550; 82553; 83036; 83735; 83880; 84484; 85025; 85610; 85730; 93005; 94640; 94760; 96374; 99291

== ENCOUNTER 2018-03-19 08:28 | Emergency (ER) | payer MEDICARE ==
[2018-03-19] MEDS ORDERED: ALBUTEROL NEBULIZED 2.5 MG/3 ML INHALATION STA (08:33)
[2018-03-19] MEDS ORDERED: methylPREDNISolone SOD SUCCI 125 MG/2 ML VIAL IV STA (08:33)
--- NOTE | 2018-03-19 08:37 | ED ---
General Adult HPI - General Stated complaint: COPD Time Seen by Provider: 03/19/18 08:32 Source: patient, EMS, RN notes reviewed, old records reviewed - History of Present Illness Initial comments: 67-year-old female history of COPD presents for evaluation of worsening dyspnea. Patient went to walk the dog this morning, the cold air outside triggered some moderate cough and dyspnea. Patient does have history of COPD she is currently on 3 L home oxygen. She continues to smoke. She was given albuterol by EMS and had taken one dose of albuterol prior to EMS arrival. She was noted to be hypoxic at 90 when EMS arrived. This improved to 99% during transport. Patient states her symptoms are mostly improved time my evaluation. Denies chest pain. Denies fever or chills. Denies lower extremity pain or swelling. - Related Data Home Medications Medication Instructions Recorded Confirmed Montelukast [Singulair] 10 mg PO HS@2130 05/04/14 03/06/18 Tiotropium [place] [Spiriva] 1 cap INHALATION RT-DAILY@0800 05/04/14 03/06/18 Aspirin EC [Ecotrin Low Dose] 81 mg PO Q48H 10/22/14 03/06/18 Budesonide [Pulmicort] 1 mg INHALATION RT-BID@1000,1400 10/22/14 03/06/18 Albuterol Nebulized [Ventolin 2.5 mg INHALATION 03/25/17 03/06/18 Nebulized] RT-QID@08,12,17,21 Albuterol Sulfate [Proair Hfa] 2 puff INHALATION RT-QID PRN 03/25/17 03/06/18 Arformoterol Tartrate [Brovana] 15 mcg INHALATION RT-BID@0800,1700 03/25/1704/13 Calcium Carbonate/Vitamin D3 1 tab PO DAILY@1700 03/25/17 03/06/18 [Calcium 600-Vit D3 200 Tablet] DULoxetine HCL [Cymbalta] 60 mg PO DAILY@0800 03/25/17 03/06/18 Metoprolol Succinate [Toprol XL] 25 mg PO HS@1800 03/25/17 03/06/18 amLODIPine [Norvasc] 10 mg PO HS@1800 03/25/17 03/06/18 Hydrocodone/Acetaminophen [[place] 1 tab PO Q6H PRN 07/08/17 03/06/18 10-325] Methimazole [Tapazole] 5 mg PO HS 07/08/17 03/06/18 Atorvastatin [Lipitor] 10 mg PO HS 09/20/17 03/06/18 ALPRAZolam [Xanax] 0.5 mg PO DAILY PRN 03/06/18 03/06/18 DULoxetine HCL [Cymbalta] 30 mg PO DAILY@0800 03/06/18 03/06/18 Temazepam [Restoril] 15 mg PO HS 03/06/18 03/06/18 Previous Rx's Medication Instructions Recorded Ondansetron HCl [Zofran] 4 mg PO DAILY 30 Days #30 tablet 03/08/18 predniSONE 10 mg PO DAILY 16 Days #40 tab 03/08/18 Allergies Allergy/AdvReac Type Severity Reaction Status Date / Time Influenza Virus Vaccines Allergy Dyspnea Verified 03/06/18 07:06 hydromorphone [From Dilaudid] AdvReac Hallucinati Verified 03/06/18 07:06 ons Review of Systems ROS Statement: Those systems with pertinent positive or pertinent negative responses have been documented in the HPI. ROS Other: All systems not noted in ROS Statement are negative. Past Medical History Past Medical History: Asthma, COPD, Hypertension, Pneumonia, Thyroid Disorder Additional Past Medical History / Comment(s): recent UTI-now resolved, FEB 2017 -resp. failure-on vent. in [facility] rehab after, O2 dependent- 2L/NC continuously, pneumonia 2010, acute trachebronchitis, chronic lt shoulder pain , DJD, bowel obstruction , donated R kidney to son, post colonoscopy with. polypectomy bleed and was in ICU, Graves disease, AAA found in June 2012 - has been stable since then History of Any Multi-Drug Resistant Organisms: None Reported Past Surgical History: Cholecystectomy, Hysterectomy, Orthopedic Surgery Additional Past Surgical History / Comment(s): R nephrectomy, 2011 laparotomy with lysis of adhesions from kidney surgery causing bowel obstruction. L shoulder and collar bone surgery, colonoscopy with polypectomy, cataract surg. Past Anesthesia/Blood Transfusion Reactions: No Reported Reaction Additional Past Anesthesia/Blood Transfusion Reaction / Comment(s): Pt has never received blood. Past Psychological History: Depression Additional Psychological History / Comment(s): Pt has an adult son residing with her. Her spouse in October of 2017. She has home O2 and a nebulizer. She drives. Smoking Status: Former smoker Past Alcohol Use History: None Reported Additional Past Alcohol Use History / Comment(s): Pt started smoking in 1975 and quit smoking in 2012. Past Drug Use History: None Reported - Past Family History Father Family Medical History: Cancer Additional Family Medical History / Comment(s): Pancreatic cancer and passed when he was 58 Mother Family Medical History: No Reported History Additional Family Medical History / Comment(s): None General Exam General appearance: alert, in no apparent distress Head exam: Present: atraumatic, normocephalic Eye exam: Present: normal appearance, PERRL ENT exam: Present: normal exam Neck exam: Present: normal inspection. Absent: tenderness, meningismus Respiratory exam: Present: wheezes, decreased breath sounds, prolonged expiratory. Absent: respiratory distress Cardiovascular Exam: Present: regular rate, normal rhythm GI/Abdominal exam: Present: soft. Absent: distended, tenderness Extremities exam: Present: normal inspection, normal capillary refill. Absent: pedal edema, calf tenderness Neurological exam: Present: alert, oriented X3, CN II-XII intact. Absent: motor sensory deficit Psychiatric exam: Present: normal affect, normal mood Skin exam: Present: warm, dry, intact. Absent: cyanosis, diaphoretic, erythema Course Vital Signs 03/19/18 03/19/18 03/19/18 08:37 08:51 09:08 Temperature 98.7 F Pulse Rate 99 94 98 Respiratory 22 Rate Blood Pressure 149/81 O2 Sat by Pulse 96 Oximetry Medical Decision Making - Medical Decision Making 67-year-old female presenting with dyspnea secondary to COPD. Patient given an additional 5 mg of albuterol in the emergency department as well as IV steroids. On reevaluation she states she is 100% better. She is eager for discharge. Chest x-rays obtained, negative for focal pneumonia findings consistent with COPD. Patient will follow-up with her primary care and with her customer support analyst on Tuesday. She is currently on steroid taper taking 30 mg prednisone daily. She will continue this. She will return with worsening or changing symptoms. Disposition Clinical Impression: Acute exacerbation of chronic obstructive airways disease Disposition: HOME SELF-CARE Condition: Fair Instructions: COPD (Chronic Obstructive Pulmonary Disease) (ED) Is patient prescribed a controlled substance at d/c from ED?: No Referrals: Chris Lopez DO [Primary Care Provider] - 1-2 days Piedad Sánchez MD [STAFF PHYSICIAN] - 1-2 days Time of Disposition: 09:11
[2018-03-19 08:40] VITALS: TEMP 98.7
--- NOTE | 2018-03-19 09:01 | XR ---
EXAMINATION TYPE: XR chest 2V DATE OF EXAM: 03/19/2018 HISTORY: difficulty breathing. REFERENCE: Previous study dated 03/06/2018. FINDINGS: There is been previous internal fixation of the left clavicle. The lungs are overinflated. Heart size is within normal limits. There is a left lingular atelectasis. Pleural spaces are clear. IMPRESSION: 1. COPD. 2. LEFT LINGULAR ATELECTASIS.
[2018-03-19 10:10] VITALS: BP 162/79; PULSE 89; RESP 20
== END 2018-03-19 10:37 | disposition home or self-care (01) ==
LOC: EC 08:28
DX: J44.1 Chronic obstructive pulmonary disease with (acute) exacerbation (principal); I10 Essential (primary) hypertension; E07.9 Disorder of thyroid, unspecified; J96.90 Respiratory failure, unspecified, unspecified whether with hypoxia or hypercapnia; F32.9 Major depressive disorder, single episode, unspecified; Z87.891 Personal history of nicotine dependence; Z79.51 Long term (current) use of inhaled steroids; Z79.82 Long term (current) use of aspirin; Z79.899 Other long term (current) drug therapy; Z88.5 Allergy status to narcotic agent; Z88.7 Allergy status to serum and vaccine; Z99.81 Dependence on supplemental oxygen
CPT/HCPCS: 94640; 71046; 99285; 96374; J2930

== ENCOUNTER 2018-03-20 17:18 | Inpatient (IN) | payer MEDICARE ==
[2018-03-20] MEDS ORDERED: AZITHROMYCIN 500 MG in SODIUM CHLORIDE 0.9% 250 ML IVPB STA (17:19)
[2018-03-20] MEDS ORDERED: ALBUTEROL NEBULIZED 2.5 MG/3 ML INHALATION STA (17:19)
[2018-03-20] MEDS ORDERED: methylPREDNISolone SOD SUCCI 125 MG/2 ML VIAL IV STA (17:19)
--- NOTE | 2018-03-20 17:21 | ED ---
General Adult HPI - General Stated complaint: COPD Time Seen by Provider: 03/20/18 17:18 Source: patient, EMS, RN notes reviewed, old records reviewed - History of Present Illness Initial comments: 67-year-old female history of COPD presents for evaluation of worsening cough and dyspnea. Patient was seen in the emergency department yesterday, was treated for COPD exacerbation, she was significantly improved at the time of discharge, however over the course of the past 24 hours her symptoms have worsened. She's taken 3 albuterol sent home with minimal relief. She is currently smoking. Denies fever or chills. Denies chest pain. She is currently on a steroid taper. She follows with pulmonology on a regular basis. - Related Data Home Medications Medication Instructions Recorded Confirmed Montelukast [Singulair] 10 mg PO HS@2130 05/04/14 03/20/18 Tiotropium [place] [Spiriva] 1 cap INHALATION RT-DAILY@0800 05/04/14 03/20/18 Aspirin EC [Ecotrin Low Dose] 81 mg PO DAILY 10/22/14 03/20/18 Budesonide [Pulmicort] 1 mg INHALATION RT-BID@1000,1400 10/22/14 03/20/18 Albuterol Nebulized [Ventolin 2.5 mg INHALATION 03/25/17 03/20/18 Nebulized] RT-QID@,,, Albuterol Sulfate [Proair Hfa] 2 puff INHALATION RT-QID PRN 03/25/17 03/20/18 Arformoterol Tartrate [Brovana] 15 mcg INHALATION RT-BID@0800,1700 03/25/17 Calcium Carbonate/Vitamin D3 1 tab PO DAILY@1700 03/25/17 03/20/18 [Calcium 600-Vit D3 200 Tablet] DULoxetine HCL [Cymbalta] 60 mg PO DAILY@0800 03/25/17 03/20/18 Metoprolol Succinate [Toprol XL] 25 mg PO HS@1800 03/25/17 03/20/18 amLODIPine [Norvasc] 10 mg PO HS@1800 03/25/17 03/20/18 Hydrocodone/Acetaminophen [[place] 1 tab PO Q6H PRN 07/08/17 03/20/18 10-325] Methimazole [Tapazole] 5 mg PO DAILY 07/08/17 03/20/18 Atorvastatin [Lipitor] 10 mg PO HS 09/20/17 03/20/18 ALPRAZolam [Xanax] 0.5 mg PO DAILY PRN 03/06/18 03/20/18 DULoxetine HCL [Cymbalta] 30 mg PO DAILY@0800 03/06/18 03/20/18 Temazepam [Restoril] 15 mg PO HS 03/06/18 03/20/18 predniSONE 20 mg PO DAILY 03/20/18 03/20/18 Previous Rx's Medication Instructions Recorded Ondansetron HCl [Zofran] 4 mg PO DAILY 30 Days #30 tablet 03/08/18 Allergies Allergy/AdvReac Type Severity Reaction Status Date / Time Influenza Virus Vaccines Allergy Dyspnea Verified 03/20/18 18:01 hydromorphone [From Dilaudid] AdvReac Hallucinati Verified 03/20/18 18:01 ons Review of Systems ROS Statement: Those systems with pertinent positive or pertinent negative responses have been documented in the HPI. ROS Other: All systems not noted in ROS Statement are negative. Past Medical History Past Medical History: Asthma, COPD, Hypertension, Pneumonia, Thyroid Disorder Additional Past Medical History / Comment(s): recent UTI-now resolved, FEB 2017 -resp. failure-on vent. in [facility] [place] rehab after, O2 dependent- 2L/NC continuously, pneumonia 2010, acute trachebronchitis, chronic lt shoulder pain , DJD, bowel obstruction , donated R kidney to son, post colonoscopy with. polypectomy bleed and was in ICU, Graves disease, AAA found in June 2012 - has been stable since then History of Any Multi-Drug Resistant Organisms: None Reported Past Surgical History: Cholecystectomy, Hysterectomy, Orthopedic Surgery Additional Past Surgical History / Comment(s): R nephrectomy, 2012 laparotomy with lysis of adhesions from kidney surgery causing bowel obstruction. L shoulder and collar bone surgery, colonoscopy with polypectomy, cataract surg. Past Anesthesia/Blood Transfusion Reactions: No Reported Reaction Additional Past Anesthesia/Blood Transfusion Reaction / Comment(s): Pt has never received blood. Past Psychological History: Depression Additional Psychological History / Comment(s): Pt has an adult son residing with her. Her spouse in October of 2017. She has home O2 and a nebulizer. She drives. Smoking Status: Former smoker Past Alcohol Use History: None Reported Additional Past Alcohol Use History / Comment(s): Pt started smoking in 1975 and quit smoking in 2012. Past Drug Use History: None Reported - Past Family History Father Family Medical History: Cancer Additional Family Medical History / Comment(s): Pancreatic cancer and passed when he was 58 Mother Family Medical History: No Reported History Additional Family Medical History / Comment(s): None General Exam General appearance: alert, in distress (Mild respiratory distress) Head exam: Present: atraumatic, normocephalic Eye exam: Present: normal appearance, PERRL ENT exam: Present: normal exam Neck exam: Present: normal inspection. Absent: tenderness, meningismus Respiratory exam: Present: respiratory distress, wheezes, decreased breath sounds, prolonged expiratory Cardiovascular Exam: Present: regular rate, normal rhythm GI/Abdominal exam: Present: soft. Absent: distended, tenderness Extremities exam: Present: normal inspection, normal capillary refill. Absent: pedal edema, calf tenderness Neurological exam: Present: alert, oriented X3, CN II-XII intact. Absent: motor sensory deficit Psychiatric exam: Present: normal affect, normal mood Skin exam: Present: warm, dry, intact. Absent: cyanosis, diaphoretic Course Vital Signs 03/20/18 03/20/18 03/20/18 17:26 18:39 18:52 Temperature 97.6 F Pulse Rate 104 H 106 H 109 H Respiratory 26 H 20 28 H Rate Blood Pressure 133/84 O2 Sat by Pulse 85 L Oximetry - Reevaluation(s) Reevaluation #1: 03/20/18 19:55 On reevaluation, patient remains quite dyspneic. EKG Findings - EKG Comments: EKG Findings:: EKG: Normal sinus rhythm, rate of 92, AR interval 158, QRS duration 76, QTC 452, no ST segment changes Medical Decision Making - Medical Decision Making 67-year-old female presenting with worsening cough and dyspnea. Patient has taken multiple treatments at home with minimal improvement. Brought in by EMS for evaluation. She is in mild to moderate respiratory distress on initial evaluation. Given albuterol, Atrovent, and steroids in the emergency department. Chest x-ray obtained, does show findings consistent with COPD, no focal pneumonia. Patient does have significant leukocytosis at 24 although this may be related to steroid administration and she has been on both IV and oral steroids in the past 24 hours. Potassium 3.3 which is replaced. Creatinine 1.51 which is elevated from baseline patient given IV hydration. She will be admitted for treatment of COPD exacerbation failed outpatient treatment. - Lab Data Result diagrams: 03/20/18 17:47 03/20/18 17:47 Lab Results 03/20/18 03/20/18 03/20/18 Range/Units 17:47 17:47 17:47 WBC 24.6 H (3.8-10.6) k/uL RBC 4.52 (3.80-5.40) m/uL Hgb 12.3 (11.4-16.0) gm/dL Hct 38.9 (34.0-46.0) % MCV 86.0 (80.0-100.0) fL MCH 27.2 (25.0-35.0) pg MCHC 31.6 (31.0-37.0) g/dL RDW 14.7 (11.5-15.5) % Plt Count 357 (150-450) k/uL Neutrophils % 84 % Lymphocytes % 10 % Monocytes % 5 % Eosinophils % 0 % Basophils % 0 % Neutrophils # 20.7 H (1.3-7.7) k/uL Lymphocytes # 2.3 (1.0-4.8) k/uL Monocytes # 1.3 H (0-1.0) k/uL Eosinophils # 0.1 (0-0.7) k/uL Basophils # 0.0 (0-0.2) k/uL PT (9.0-12.0) sec INR (<1.2) APTT (22.0-30.0) sec Sodium 143 (137-145) mmol/L Potassium 3.3 L (3.5-5.1) mmol/L Chloride 101 (98-107) mmol/L Carbon Dioxide 31 H (22-30) mmol/L Anion Gap 11 mmol/L BUN 32 H (7-17) mg/dL Creatinine 1.51 H (0.52-1.04) mg/dL Est GFR (CKD-EPI)AfAm 42 (>60 ml/min/1.73 sqM) Est GFR (CKD-EPI)NonAf 36 (>60 ml/min/1.73 sqM) Glucose 103 H (74-99) mg/dL Calcium 10.0 (8.4-10.2) mg/dL Magnesium 2.3 (1.6-2.3) mg/dL Total Bilirubin 0.3 (0.2-1.3) mg/dL AST 15 (14-36) U/L ALT 19 (9-52) U/L Alkaline Phosphatase 83 (38-126) U/L Total Creatine Kinase 36 (30-135) U/L CK-MB (CK-2) 1.5 (0.0-2.4) ng/mL CK-MB (CK-2) Rel Index 4.2 Troponin I <0.012 (0.000-0.034) ng/mL Total Protein 6.1 L (6.3-8.2) g/dL Albumin 3.6 (3.5-5.0) g/dL 03/20/18 Range/Units 17:47 WBC (3.8-10.6) k/uL RBC (3.80-5.40) m/uL Hgb (11.4-16.0) gm/dL Hct (34.0-46.0) % MCV (80.0-100.0) fL MCH (25.0-35.0) pg MCHC (31.0-37.0) g/dL RDW (11.5-15.5) % Plt Count (150-450) k/uL Neutrophils % % Lymphocytes % % Monocytes % % Eosinophils % % Basophils % % Neutrophils # (1.3-7.7) k/uL Lymphocytes # (1.0-4.8) k/uL Monocytes # (0-1.0) k/uL Eosinophils # (0-0.7) k/uL Basophils # (0-0.2) k/uL PT 9.4 (9.0-12.0) sec INR 0.9 (<1.2) APTT 18.6 L (22.0-30.0) sec Sodium (137-145) mmol/L Potassium (3.5-5.1) mmol/L Chloride (98-107) mmol/L Carbon Dioxide (22-30) mmol/L Anion Gap mmol/L BUN (7-17) mg/dL Creatinine (0.52-1.04) mg/dL Est GFR (CKD-EPI)AfAm (>60 ml/min/1.73 sqM) Est GFR (CKD-EPI)NonAf (>60 ml/min/1.73 sqM) Glucose (74-99) mg/dL Calcium (8.4-10.2) mg/dL Magnesium (1.6-2.3) mg/dL Total Bilirubin (0.2-1.3) mg/dL AST (14-36) U/L ALT (9-52) U/L Alkaline Phosphatase (38-126) U/L Total Creatine Kinase (30-135) U/L CK-MB (CK-2) (0.0-2.4) ng/mL CK-MB (CK-2) Rel Index Troponin I (0.000-0.034) ng/mL Total Protein (6.3-8.2) g/dL Albumin (3.5-5.0) g/dL Disposition Clinical Impression: Acute exacerbation of chronic obstructive airways disease Disposition: ADMITTED IP TO THIS [facility] Condition: Stable Is patient prescribed a controlled substance at d/c from ED?: No Referrals: Chris Lopez DO [Primary Care Provider] - 1-2 days Decision to Admit Reason: Admit from EC Decision Date: 03/20/18 Decision Time: 19:57
--- NOTE | 2018-03-20 18:42 | XR ---
EXAMINATION TYPE: XR chest 2V DATE OF EXAM: 03/20/2018 COMPARISON: NONE HISTORY: [place] TECHNIQUE: Frontal and lateral views of the chest are obtained. FINDINGS: Heart is normal. Lungs are clear of consolidation. There is flattening of the diaphragm. T here is no heart failure. There is left clavicle old fracture with a plate. There is thoracic kyphoti c mild deformity with anterior wedging of T8 and T5 vertebra. IMPRESSION: No active cardiopulmonary disease. There is probably COPD. There is improved aeration of the lung bases compared to yesterday. Old thoracic compression fractures. Unchanged compared to 05/02.
[2018-03-20 18:54] LABS: Basophils % (A) 0 %; Eosinophils # (A) 0.1 k/uL (0-0.7); Eosinophils % (A) 0 %; HCT 38.9 % (34.0-46.0); HGB 12.3 gm/dL (11.4-16.0); Lymphocytes # (A) 2.3 k/uL (1.0-4.8); Lymphocytes % (A) 10 %; MCH 27.2 pg (25.0-35.0); MCHC 31.6 g/dL (31.0-37.0); Mean Platelet Volume 6.5; Monocytes # (A) 1.3 k/uL (0-1.0); Monocytes % (A) 5 %; Neutrophils # (A) 20.7 k/uL (1.3-7.7); Neutrophils % (A) 84 %; Platelet Count 357 k/uL (150-450); RBC 4.52 m/uL (3.80-5.40); RDW 14.7 % (11.5-15.5); WBC 24.6 k/uL (3.8-10.6)
[2018-03-20 19:05] LABS: Albumin 3.6 g/dL (3.5-5.0); Magnesium 2.3 mg/dL (1.6-2.3); Potassium 3.3 mmol/L (3.5-5.1); Total Bilirubin 0.3 mg/dL (0.2-1.3); Total Protein 6.1 g/dL (6.3-8.2)
[2018-03-20 19:08] LABS: Creatine Kinase 36 U/L (30-135)
[2018-03-20 19:09] LABS: INR 0.9 (<1.2); Prothrombin Time 9.4 sec (9.0-12.0)
[2018-03-20 19:10] LABS: Partial Thromboplastin Time 18.6 sec (22.0-30.0)
[2018-03-20 19:20] LABS: Creatine Kinase MB 1.5 ng/mL (0.0-2.4); Troponin I <0.012 ng/mL (0.000-0.034)
[2018-03-20] MEDS ORDERED: SODIUM CHLORIDE 0.9% 500 ML IV ONE (19:26)
[2018-03-20] MEDS ORDERED: POTASSIUM CHLORIDE ER 20 MEQ TAB.ER PO STA (19:26)
[2018-03-20] MEDS ORDERED: IPRATROPIUM-ALBUTEROL 3 ML NEB INHALATION PRN (19:53)
[2018-03-20] MEDS ORDERED: ACETAMINOPHEN TAB 500 MG TAB PO STA (19:55)
[2018-03-20] MEDS: IPRATROPIUM-ALBUTEROL 3 ML NEB INHALATION SCH (20:19)
[2018-03-20] MEDS: SODIUM CHLORIDE 0.9% 1,000 ML IV SCH (20:24)
[2018-03-20] MEDS: methylPREDNISolone SOD SUCCI 125 MG/2 ML VIAL IV SCH (23:54)
[2018-03-21] MEDS: methylPREDNISolone SOD SUCCI 125 MG/2 ML VIAL IV SCH ×2 (05:16→11:32)
[2018-03-21] MEDS ORDERED: ALPRAZolam 0.5 MG TAB PO PRN (05:41)
[2018-03-21] MEDS: IPRATROPIUM-ALBUTEROL 3 ML NEB INHALATION SCH ×5 (08:27→19:06)
[2018-03-21] MEDS: AZITHROMYCIN 500 MG TAB PO SCH (09:02)
[2018-03-21 09:19] LABS: Basophils % (A) 0 %; Eosinophils % (A) 0 %; HCT 37.4 % (34.0-46.0); HGB 12.3 gm/dL (11.4-16.0); Lymphocytes # (A) 0.5 k/uL (1.0-4.8); Lymphocytes % (A) 3 %; MCH 28.2 pg (25.0-35.0); MCHC 32.8 g/dL (31.0-37.0); Mean Platelet Volume 6.3; Monocytes # (A) 0.5 k/uL (0-1.0); Monocytes % (A) 3 %; Neutrophils # (A) 16.4 k/uL (1.3-7.7); Neutrophils % (A) 94 %; Platelet Count 316 k/uL (150-450); RBC 4.35 m/uL (3.80-5.40); RDW 14.6 % (11.5-15.5); WBC 17.4 k/uL (3.8-10.6)
[2018-03-21 09:25] LABS: Calcium 9.3 mg/dL (8.4-10.2)
[2018-03-21] MEDS ORDERED: ALPRAZolam 0.5 MG TAB PO STA (09:39)
[2018-03-21] MEDS: SODIUM CHLORIDE 0.9% 1,000 ML IV SCH ×2 (09:58→22:06)
--- NOTE | 2018-03-21 11:17 | P.CNPUL ---
History of Present Illness Consult date: 03/21/18 Reason for consult: dyspnea, cough, COPD, hypoxemia, abnormal CXR/CT Chief complaint: Shortness of breath History of present illness: Pulmonary consult dated 03/21/2018 67-year-old female well-known to our service. She sees my partner in the office for her severe/stage III COPD. Her FEV1 is 37% of predicted. She presents to the emergency room on the for complaints of increasing and worsening shortness of breath. She was inpatient back in early February I believe from March 06-. At that time she was seen by my partner and our nurse practitioner. She was discharged home on prednisone with a burst and taper. When she gets down below but 15 or 20 mg of prednisone she states that her lung disease starts to act up again. Over the weekend she was in the emergency room for increasing shortness of breath is treated with some breathing treatments and Solu-Medrol and sent home. She presented again on the with increasing and worsening shortness of breath. In addition, she was coughing and producing some phlegm. She denies any chest pain. She currently still smokes. No fever or chills. Coughing up minimal phlegm. Not coughing up any blood. After the second admission to the emergency room, they admitted her with a diagnosis of COPD exacerbation. The patient's chest x-ray shows changes only of COPD. She is on a good regimen of Singulair Spiriva Pulmicort pro-air and Brovana. I told the patient that she may be at the point in her chronic lung disease that she'll need to be on a small dose of prednisone on a daily basis. This causes her to become very tearful and start crying. I told her that this is something she'll need to discuss with Dr. Sánchez. Her past medical history is positive for severe COPD hypertension pneumonia hypothyroidism hyperlipidemia, as well as urinary tract infection, respiratory failure requiring mechanical ventilation, bowel obstruction, Graves' disease, and abdominal aortic aneurysm. Again, she continues to smoke cigarettes. Review of Systems A 14 point review of system is positive for shortness breath chest tightness wheezing cough minimal phlegm production chest tightness chest congestion. No fever or chills. No chest pain or chest discomfort. Past Medical History Past Medical History: Asthma, COPD, Hypertension, Pneumonia, Thyroid Disorder Additional Past Medical History / Comment(s): recent UTI-now resolved, FEB 2017 -resp. failure-on vent. in [place] rehab after, O2 dependent- 3L/NC continuously, pneumonia 2010, acute trachebronchitis, chronic lt shoulder pain , DJD, bowel obstruction , donated R kidney to son, post colonoscopy with. polypectomy bleed and was in ICU, Graves disease, AAA found in June 2012 - has been stable since then History of Any Multi-Drug Resistant Organisms: None Reported Past Surgical History: Cholecystectomy, Hysterectomy, Orthopedic Surgery Additional Past Surgical History / Comment(s): R nephrectomy, 2011 laparotomy with lysis of adhesions from kidney surgery causing bowel obstruction. L shoulder and collar bone surgery, colonoscopy with polypectomy, cataract surg- lens implants. Past Anesthesia/Blood Transfusion Reactions: No Reported Reaction Additional Past Anesthesia/Blood Transfusion Reaction / Comment(s): Pt has never received blood. Smoking Status: Former smoker - Past Family History Father Family Medical History: Cancer Additional Family Medical History / Comment(s): Pancreatic cancer and passed when he was 58 Mother Family Medical History: No Reported History Additional Family Medical History / Comment(s): None Medications and Allergies Home Medications Medication Instructions Recorded Confirmed Type Montelukast [Singulair] 10 mg PO HS@2130 05/04/14 03/20/18 History Tiotropium [place] [Spiriva] 1 cap INHALATION RT-DAILY@0800 05/04/14 03/20/18 History Aspirin EC [Ecotrin Low Dose] 81 mg PO DAILY 10/22/14 03/20/18 History Budesonide [Pulmicort] 1 mg INHALATION RT-BID@1000,1400 10/22/14 03/20/18 History Albuterol Nebulized [Ventolin 2.5 mg INHALATION 03/25/17 03/20/18 History Nebulized] RT-QID@08,12,17,21 Albuterol Sulfate [Proair Hfa] 2 puff INHALATION RT-QID PRN 03/25/17 03/20/18 History Arformoterol Tartrate [Brovana] 15 mcg INHALATION RT-BID@0800,1700 03/25/17 History Calcium Carbonate/Vitamin D3 1 tab PO DAILY@1700 03/25/17 03/20/18 History [Calcium 600-Vit D3 200 Tablet] DULoxetine HCL [Cymbalta] 60 mg PO DAILY@0800 03/25/17 03/20/18 History Metoprolol Succinate [Toprol XL] 25 mg PO HS@1800 03/25/17 03/20/18 History amLODIPine [Norvasc] 10 mg PO HS@1800 03/25/17 03/20/18 History Hydrocodone/Acetaminophen [[place] 1 tab PO Q6H PRN 07/08/17 03/20/18 History 10-325] Methimazole [Tapazole] 5 mg PO DAILY 07/08/17 03/20/18 History Atorvastatin [Lipitor] 10 mg PO HS 09/20/17 03/20/18 History ALPRAZolam [Xanax] 0.5 mg PO DAILY PRN 03/06/18 03/20/18 History DULoxetine HCL [Cymbalta] 30 mg PO DAILY@0800 03/06/18 03/20/18 History Temazepam [Restoril] 15 mg PO HS 03/06/18 03/20/18 History Ondansetron HCl [Zofran] 4 mg PO DAILY 30 Days #30 tablet 03/08/18 03/20/18 Rx predniSONE 20 mg PO DAILY 03/20/18 03/20/18 History Allergies Allergy/AdvReac Type Severity Reaction Status Date / Time Influenza Virus Vaccines Allergy Dyspnea Verified 03/20/18 18:01 hydromorphone [From Dilaudid] AdvReac Hallucinati Verified 03/20/18 18:01 ons Physical Exam Osteopathic Statement: *. No significant issues noted on an osteopathic structural exam other than those noted in the History and Physical/Consult. Vitals: Vital Signs Temp Pulse Pulse Resp BP BP Pulse Ox 03/21/18 08:38 100 03/21/18 08:27 98 20 100 03/21/18 06:47 98.9 F 94 18 153/82 96 03/21/18 04:59 96 03/21/18 04:52 88 03/20/18 23:00 97.7 F 99 18 143/78 96 03/20/18 20:36 96 20 140/83 92 L 03/20/18 18:52 109 H 28 H 03/20/18 18:39 106 H 20 03/20/18 17:26 97.6 F 104 H 26 H 133/84 85 L Intake and Output 03/20/18 03/21/18 03/21/18 22:59 06:59 14:59 Intake Total 300 Balance 300 Intake: Amount of Fluid Infused ( 300 ml) Other: Voiding Method Diaper Incontinent # Voids 1 1 # Bowel Movements 1 1 Weight 63.503 kg No acute distress, oriented 3. No jose respiratory distress. HEENT examination is grossly unremarkable. Mucous membranes are moist. No oral lesions. Nasal O2 in place. Neck supple. Full range of motion. No adenopathy thyromegaly or neck vein distention. Cardiovascular examination reveals regular rhythm rate. S1-S2 normal. No S3 or S4. No discernible murmur noted. Lungs reveal diminished breath sounds throughout. There are diffuse inspiratory and expiratory wheezes and rhonchi. There is prolongation on forced maneuver. No crackles. Breath sounds equal bilaterally but diminished throughout. Abdomen soft bowel sounds are heard. No masses or tenderness. Extremities are intact. No cyanosis clubbing or edema. Skin is without rash or lesion. Neurologic examination is brief but nonfocal. Results - Laboratory Findings CBC and BMP: 03/21/18 08:43 03/21/18 08:43 PT/INR, D-dimer PT 9.4 sec (9.0-12.0) 03/20/18 17:47 INR 0.9 (<1.2) 03/20/18 17:47 Abnormal lab findings: Abnormal Labs 03/20/18 03/20/18 03/20/18 17:47 17:47 17:47 WBC 24.6 H Neutrophils # 20.7 H Lymphocytes # Monocytes # 1.3 H APTT 18.6 L Potassium 3.3 L Chloride Carbon Dioxide 31 H BUN 32 H Creatinine 1.51 H Glucose 103 H Total Protein 6.1 L 03/21/18 03/21/18 08:43 08:43 WBC 17.4 H Neutrophils # 16.4 H Lymphocytes # 0.5 L Monocytes # APTT Potassium Chloride 109 H Carbon Dioxide BUN 28 H Creatinine Glucose 121 H Total Protein - Diagnostic Findings Chest x-ray: report reviewed (Labs x-rays and medications are reviewed.), image reviewed Assessment and Plan Assessment: Assessment COPD exacerbation complicated by mild purulent tracheobronchitis Acute on chronic hypoxemic respiratory failure History of hypertension History of pneumonia History of hypothyroidism History of ongoing tobacco use History of anxiety History of hyperlipidemia Plan: Plan dated 03/21/2018 Her medications x-rays and labs are all reviewed. The patient has a lot of emotional lability at this time. The patient apparently continues to smoke at least a documented in the emergency room. The patient may be at the point in her COPD history that she may require long-term daily prednisone use. Her other medications are very appropriate. She sees my partner, Dr. Sánchez in the office. We'll make sure that she is on short acting beta agonist, short acting muscarinic antagonist, long-acting beta agonist, inhaled corticosteroids , oral antibiotics, and systemic corticosteroids. Also we'll make sure that we add back her montelukast asked or Singulair. Prognosis is guarded. White count 17.4 down from 24.6, hemoglobin 12.3 hematocrit 37.4 platelet count normal sodium and potassium are normal chloride is 109 CO2 26 anion gap normal BUN and creatinine 28 and 0.80. Prognosis is guarded. Time with Patient: Greater than 30
[2018-03-21] MEDS: METHIMAZOLE 5 MG TAB PO SCH (11:25)
[2018-03-21] MEDS: ASPIRIN 81 MG PO SCH (11:25)
[2018-03-21] MEDS: DULoxetine HCL 30 MG CAPSULE.DR PO SCH (12:15)
[2018-03-21] MEDS: DULoxetine HCL 60 MG CAPSULE.DR PO SCH (12:15)
[2018-03-21 12:23] LABS: Glucose,Whole Blood 108 mg/dL (75-99)
[2018-03-21] MEDS: INSULIN ASPART 100 UNIT/ML 1 ML 10 ML VIAL SQ SCH ×3 (12:30→22:04)
[2018-03-21] MEDS: HYDROcodone/APAP 10-325MG 1 EACH TAB PO PRN (15:38)
[2018-03-21] MEDS ORDERED: MAGNESIUM HYDROXIDE 2,400 MG/10 ML CUP PO PRN (16:12)
[2018-03-21] MEDS ORDERED: ACETAMINOPHEN TAB 325 MG TAB PO PRN (16:12)
[2018-03-21] MEDS ORDERED: LACTULOSE 20 GM/30 ML CUP PO PRN (16:12)
[2018-03-21] MEDS ORDERED: CALCIUM CARBONATE 500 MG CHEWABLE PO PRN (16:12)
[2018-03-21] MEDS ORDERED: ONDANSETRON 4 MG/2 ML VIAL IVP PRN (16:12)
[2018-03-21 17:04] LABS: Glucose,Whole Blood 131 mg/dL (75-99)
[2018-03-21] MEDS: ENOXAPARIN 40 MG/0.4 ML SYRINGE SQ SCH (17:16)
[2018-03-21] MEDS: amLODIPine 10 MG TAB PO SCH (17:17)
[2018-03-21] MEDS: METOPROLOL SUCCINATE (ER) 25 MG TAB.ER.24H PO SCH (17:17)
--- NOTE | 2018-03-21 18:02 | HP ---
HISTORY AND PHYSICAL DATE OF SERVICE: March 21, 2018. PRESENTING COMPLAINT: Short of breath. HISTORY OF PRESENTING COMPLAINT: This is a very pleasant 67-year-old patient who follows with Dr. Lopez and her jr. systems administrator is Dr. Sánchez. Chronic stable medical conditions include GERD, hyperlipidemia, hypertension, hypothyroid, on home oxygen 2 L, solitary left kidney, diverticulosis, chronic arthritis. The patient did smoke in the past. The patient presents with worsening short of breath over the last 2 to 3 days. The patient recently in the hospital. Denies any fevers. Got a cough. No obvious sputum production. Tired, run down, very short of breath at rest. Also found to be in renal failure. Admitted for the same. Started on bronchodilators to which she is feeling a bit better. Sitting at the edge of the bed, still short of breath. Appetite has gone down. Denies any fever or chills. REVIEW OF SYSTEMS: CONSTITUTIONAL: Tired. HEENT: Chronic tinnitus. RESPIRATORY as above. CARDIOVASCULAR none. GASTROINTESTINAL: Heartburn. GENITOURINARY: None. MUSCULOSKELETAL: Pain in different joints. DERMATOLOGICAL, HEMATOLOGIC, LYMPHATICS: none. PSYCHIATRY anxiety. NEUROLOGICAL none. PAST HISTORY: COPD, GERD, hard of hearing, hyperlipidemia, hypertension, hypothyroid, home oxygen 2 L, right kidney donated to her son, Grave's disease, bowel obstruction, diverticulosis, kidney stones, UTI, chronic left shoulder pain, migraine, bilateral tinnitus. PAST SURGICAL HISTORY: Cholecystectomy, hysterectomy, right nephrectomy, kidney donated; lysis of adhesions in the abdomen, left shoulder collarbone surgery, bilateral cataract surgery. PSYCH: History of depression. SOCIAL HISTORY: The patient lost her in October of this year. On home oxygen. Son lives at home. The patient smoked for 37 years, stopped in 2012. Alcohol none. FAMILY HISTORY: Pancreatic cancer. HOME MEDICATIONS: 1. Tapazole 5 mg p.o. daily. 2. Cymbalta 30 mg p.o. daily, 60 mg p.o. daily. 3. Prednisone 20 mg daily. 4. Norvasc 10 mg p.o. at bedtime. 5. Spiriva 1 capsule inhalation daily. 6. Restoril 50 mg p.o. q.h.s. 7. Zofran 4 mg p.o. daily. 8. Singulair 10 mg p.o. q.h.s. 9. Toprol-XL 25 mg q.h.s. 10.[place] 10 1 tab q.6h p.r.n. 11.Calcium 600, vitamin D3 one tablet p.o. daily. 12.Pulmicort 1 mg b.i.d. 13.Lipitor 10 mg q.h.s. 14.Aspirin 81 mg p.o. daily. 15.Brovana 15 mcg b.i.d. 16.ProAir HFA 2 puffs q.i.d. 17.Ventolin 2.5 q.i.d. 18.Xanax 0.5 daily p.r.n. ALLERGIES: INFLUENZA, DILAUDID. PHYSICAL EXAMINATION: VITAL SIGNS: Vital signs on presentation: Temperature 97.6, pulse 104, respirations 26, blood pressure 133/84, pulse ox 85 percent on room air. GENERAL APPEARANCE: Average built, sitting on the edge of bed, short of breath, anxious. EYES: Pupils equal. Conjunctivae normal. HEENT: External appearance of nose and ears normal. Oral cavity normal. NECK: JVD not raised. Mass not palpable. RESPIRATORY: Effort increased. Accessory muscles are working. LUNGS: Diminished breath sounds, prolonged expiration and wheezing, short of breath at rest. CARDIOVASCULAR: First and second sounds no edema. ABDOMEN: Soft, nontender. Liver and spleen not palpable. LYMPHATICS: No lymph nodes palpable in the neck or axilla. PSYCHIATRY: Alert and oriented x3. Mood and affect anxious-appearing. NEUROLOGICAL: Pupils equal. Cranial nerves grossly intact. Power and sensation grossly intact. INVESTIGATIONS: White count 24.6, hemoglobin 12.3, potassium 3.3, BUN 32, creatinine 1.5 up from 0.8 from March 08, 2018. Chest x-ray: Film personally reviewed by me shows hyperinflation, prominent pulmonary artery. Old thoracic compression fracture. EKG tracing personally reviewed by me shows normal sinus rhythm. ASSESSMENT: 1. Acute severe chronic obstructive pulmonary disease exacerbation in an ex smoker. 2. Chronic hypoxic respiratory failure on 2 L oxygen at home secondary to chronic obstructive pulmonary disease. 3. Acute hypoxic respiratory failure present on admission from chronic obstructive pulmonary disease exacerbation. 4. 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 5. Chronic compression fracture of thoracic vertebra. 6. Generalized anxiety disorder not otherwise specified. 7. Nontoxic multinodular goiter with hypothyroidism patient on Tapazole. 8. Depression, not otherwise specified. 9. Thoracic aortic aneurysm being followed as an outpatient. 10.Chronic insomnia secondary multiple medical problems. 11.Chronic hard of hearing. 12.Colonic diverticulosis asymptomatic. 13.Chronic bilateral tinnitus. 14.Hyperlipidemia. 15.Essential hypertension. 16.Acute renal failure likely prerenal, probably from decreased oral intake. PLAN: Patient is put on nebulized bronchodilators and steroids, inhaled steroids, IV fluids. Home medications are resumed. Pulmonary was consulted. Lovenox for DVT prophylaxis. Care was discussed with the patient. Questions were answered. Copy to Dr. Lopez. MMODL / IJN: [id number] /
[2018-03-21] MEDS: FORMOTEROL FUMARATE 20 MCG/2 ML NEBU INHALATION SCH (19:06)
[2018-03-21] MEDS: BUDESONIDE 1 MG/2 ML NEBU INHALATION SCH (19:06)
[2018-03-21 19:11] LABS: Hemoglobin A1C 5.4 % (4.0-6.0)
[2018-03-21] MEDS: ATORVASTATIN 10 MG TAB PO SCH (20:03)
[2018-03-21] MEDS: ALPRAZolam 0.5 MG TAB PO SCH (20:03)
[2018-03-21] MEDS: MONTELUKAST 10 MG TAB PO SCH (20:03)
[2018-03-21 20:56] LABS: Glucose,Whole Blood 169 mg/dL (75-99)
[2018-03-21] MEDS: TEMAZEPAM 15 MG CAP PO SCH (22:05)
[2018-03-22] MEDS: methylPREDNISolone SOD SUCCI 40 MG/ML 1 ML VIAL IV SCH ×3 (00:31→16:28)
[2018-03-22] MEDS: IPRATROPIUM-ALBUTEROL 3 ML NEB INHALATION SCH ×6 (04:18→19:11)
[2018-03-22 07:16] LABS: Glucose,Whole Blood 109 mg/dL (75-99)
[2018-03-22] MEDS: BUDESONIDE 1 MG/2 ML NEBU INHALATION SCH ×2 (07:24→19:11)
[2018-03-22] MEDS: FORMOTEROL FUMARATE 20 MCG/2 ML NEBU INHALATION SCH ×2 (07:24→19:11)
[2018-03-22] MEDS ORDERED: DULoxetine HCL 30 MG CAPSULE.DR PO SCH (08:00)
[2018-03-22] MEDS: INSULIN ASPART 100 UNIT/ML 1 ML 10 ML VIAL SQ SCH ×4 (08:00→22:10)
[2018-03-22] MEDS ORDERED: DULoxetine HCL 60 MG CAPSULE.DR PO SCH (08:00)
[2018-03-22] MEDS: DULoxetine HCL 30 MG CAPSULE.DR PO SCH (08:02)
[2018-03-22] MEDS: DULoxetine HCL 60 MG CAPSULE.DR PO SCH (08:02)
[2018-03-22] MEDS: METHIMAZOLE 5 MG TAB PO SCH (08:02)
[2018-03-22] MEDS: ENOXAPARIN 40 MG/0.4 ML SYRINGE SQ SCH (08:03)
[2018-03-22] MEDS: ASPIRIN 81 MG PO SCH (08:03)
[2018-03-22] MEDS: AZITHROMYCIN 500 MG TAB PO SCH (08:03)
[2018-03-22] MEDS: ALPRAZolam 0.5 MG TAB PO SCH ×3 (08:07→22:05)
[2018-03-22] MEDS: HYDROcodone/APAP 10-325MG 1 EACH TAB PO PRN ×2 (08:12→22:02)
[2018-03-22 09:07] LABS: Basophils % (A) 0 %; Eosinophils % (A) 0 %; HCT 39.7 % (34.0-46.0); HGB 12.4 gm/dL (11.4-16.0); Lymphocytes # (A) 0.7 k/uL (1.0-4.8); Lymphocytes % (A) 3 %; MCHC 31.1 g/dL (31.0-37.0); MCV 86.9 fL (80.0-100.0); Mean Platelet Volume 6.6; Monocytes # (A) 0.6 k/uL (0-1.0); Monocytes % (A) 3 %; Neutrophils # (A) 18.3 k/uL (1.3-7.7); Neutrophils % (A) 93 %; Platelet Count 324 k/uL (150-450); RBC 4.57 m/uL (3.80-5.40); RDW 14.8 % (11.5-15.5); WBC 19.8 k/uL (3.8-10.6)
[2018-03-22 09:33] LABS: Calcium 9.8 mg/dL (8.4-10.2); Potassium 3.9 mmol/L (3.5-5.1)
[2018-03-22 11:25] LABS: Glucose,Whole Blood 127 mg/dL (75-99)
[2018-03-22] MEDS: SODIUM CHLORIDE 0.9% 1,000 ML IV SCH (11:51)
--- NOTE | 2018-03-22 11:54 | P.PN ---
Subjective Progress Note Date: 03/22/18 Principal diagnosis: COPD exacerbation complicated by mild purulent tracheobronchitis Pulmonary consult dated 03/21/2018 67-year-old female well-known to our service. She sees my partner in the office for her severe/stage III COPD. Her FEV1 is 37% of predicted. She presents to the emergency room on the for complaints of increasing and worsening shortness of breath. She was inpatient back in early February I believe from March 06-. At that time she was seen by my partner and our nurse practitioner. She was discharged home on prednisone with a burst and taper. When she gets down below but 15 or 20 mg of prednisone she states that her lung disease starts to act up again. Over the weekend she was in the emergency room for increasing shortness of breath is treated with some breathing treatments and Solu-Medrol and sent home. She presented again on the with increasing and worsening shortness of breath. In addition, she was coughing and producing some phlegm. She denies any chest pain. She currently still smokes. No fever or chills. Coughing up minimal phlegm. Not coughing up any blood. After the second admission to the emergency room, they admitted her with a diagnosis of COPD exacerbation. The patient's chest x-ray shows changes only of COPD. She is on a good regimen of Singulair Spiriva Pulmicort pro-air and Brovana. I told the patient that she may be at the point in her chronic lung disease that she'll need to be on a small dose of prednisone on a daily basis. This causes her to become very tearful and start crying. I told her that this is something she'll need to discuss with Dr. Sánchez. Her past medical history is positive for severe COPD hypertension pneumonia hypothyroidism hyperlipidemia, as well as urinary tract infection, respiratory failure requiring mechanical ventilation, bowel obstruction, Graves' disease, and abdominal aortic aneurysm. Again, she continues to smoke cigarettes. On 03/22/2018 patient seen in follow-up. Much improved, breathing easier today , lung sounds are diminished, with some scattered faint wheezes, but patient is pretty near her baseline. Pulse ox on 4 L per nasal cannula is 94%, afebrile. Vital signs are stable. Patient has been treated with IV steroids, empiric antibiotics, and nebulized bronchodilators, patient states she's had a lot of anxiety, and depression in regards to loss of her . But clinically she is improved, increase activity as tolerated, and considered for discharge home from pulmonary perspective. She will need to be seen in the office by Dr. Sánchez, she may have to be maintained on maintenance prednisone dose Objective - Vital Signs Vital signs: Vital Signs Temp 98.7 F 03/22/18 06:34 Pulse 91 03/22/18 11:27 Resp 18 03/22/18 08:00 BP 145/78 03/22/18 06:34 Pulse Ox 94 L 03/22/18 07:24 Intake & Output 03/21/18 03/22/18 03/22/18 18:59 06:59 18:59 Intake Total 1200 Balance 1200 Weight 63.503 kg Intake: Oral 1200 Other: Voiding Method Diaper Bedside Commode Bedside Commode Incontinent # Voids 2 2 - Exam No acute distress, oriented 3. No jose respiratory distress. HEENT examination is grossly unremarkable. Mucous membranes are moist. No oral lesions. Nasal O2 in place. Neck supple. Full range of motion. No adenopathy thyromegaly or neck vein distention. Cardiovascular examination reveals regular rhythm rate. S1-S2 normal. No S3 or S4. No discernible murmur noted. Lungs reveal diminished breath sounds throughout. There are scattered expiratory wheezes. There is prolongation on forced maneuver. No crackles. Breath sounds equal bilaterally but diminished throughout. Abdomen soft bowel sounds are heard. No masses or tenderness. Extremities are intact. No cyanosis clubbing or edema. Skin is without rash or lesion. Neurologic examination is brief but nonfocal. - Labs CBC & Chem 7: 03/22/18 08:26 03/22/18 08:26 Labs: Abnormal Lab Results - Last 24 Hours (Table) 03/21/18 03/21/18 03/21/18 Range/Units 11:49 17:02 20:55 WBC (3.8-10.6) k/uL Neutrophils # (1.3-7.7) k/uL Lymphocytes # (1.0-4.8) k/uL Chloride (98-107) mmol/L BUN (7-17) mg/dL Glucose (74-99) mg/dL POC Glucose (mg/dL) 108 H 131 H 169 H (75-99) mg/dL 03/22/18 03/22/18 03/22/18 Range/Units 07:10 08:26 08:26 WBC 19.8 H (3.8-10.6) k/uL Neutrophils # 18.3 H (1.3-7.7) k/uL Lymphocytes # 0.7 L (1.0-4.8) k/uL Chloride 109 H (98-107) mmol/L BUN 26 H (7-17) mg/dL Glucose 111 H (74-99) mg/dL POC Glucose (mg/dL) 109 H (75-99) mg/dL 03/22/18 Range/Units 11:22 WBC (3.8-10.6) k/uL Neutrophils # (1.3-7.7) k/uL Lymphocytes # (1.0-4.8) k/uL Chloride (98-107) mmol/L BUN (7-17) mg/dL Glucose (74-99) mg/dL POC Glucose (mg/dL) 127 H (75-99) mg/dL Assessment and Plan Plan: Assessment: COPD exacerbation complicated by mild purulent tracheobronchitis Acute on chronic hypoxemic respiratory failure History of hypertension History of pneumonia History of hypothyroidism History of ongoing tobacco use History of anxiety History of hyperlipidemia Plan: Patient reports feeling much better today, breathing easier. Increase activity as tolerated. Continue current medical treatment, from pulmonary perspective patient has improved, she could be considered for discharge home today on prednisone taper, starting at 40, down to 20 mg, and she will to stay on 20 mg of prednisone on a daily basis until she sees Dr. Sánchez in the office. Dr. Sánchez will have to decide whether to keep her on maintenance dose of prednisone to prevent exacerbations. I performed a history & physical examination of the patient and discussed their management with my nurse practitioner, Cher Allen. I reviewed the nurse practitioner's note and agree with the documented findings and plan of care. Lung sounds are positive for scattered wheezes throughout the lung gee. The findings and the impression was discussed with the patient. I attest to the documentation by the nurse practitioner. Time with Patient: Less than 30
--- NOTE | 2018-03-22 15:48 | CDI ---
Last Revision, May 2017 Documentation Clarification Form Date: 03/22/2018 3:36:43 PM From: Keri Connor, [facility], CCDS Admit Date: 03/20/2018 7:53:00 PM Patient Name: Keri Kern Visit Number: [id number] Discharge Date: ATTENTION: The Clinical Documentation Specialists (CDI) and [facility] Coding Staff appreciate your assistance in clarifying documentation. Please respond to the clarification below the line at the bottom and electronically sign. The CDI & [facility] Coding staff will review the response and follow-up if needed. Please note: Queries are made part of the Legal Health Record. If you have any questions, please contact the author of this message via ITS. Dr. Baldo MASON, DO: Per the pulmonary progress note 03/22: "Again, she continues to smoke cigarettes. " Per the pulmonary consult: former smoker. Per the ED note, patient started smoking in 1975 & quit in 2012. Patient history/risk factors: COPD on home O2 2Lnc, Hypertension, Hypothyroid, Grave's disease. Clinical Indicators: Lab findings: WBC 24.6^, neutrophils 20.7^, K 3.3*, CO2 31^, BUN 32^, Cr 1.51^. Radiology findings: CXR: probably COPD. Vital Signs: T 97.6, P 104^, R 26 (sob, labored, shallow), BP 133/84, PO 85 ra Treatment: Albuterol INH, IV Azithromycin, IV Solumedrol, IV fl bolus, IV fl 75 , O2 3Lnc In your professional opinion, can you please clarify? Current smoker o If yes: o Cigarettes o Other Former smoker MTDD
[2018-03-22 16:54] LABS: Glucose,Whole Blood 137 mg/dL (75-99)
[2018-03-22] MEDS: METOPROLOL SUCCINATE (ER) 25 MG TAB.ER.24H PO SCH (18:03)
[2018-03-22] MEDS: amLODIPine 10 MG TAB PO SCH (18:03)
[2018-03-22] MEDS: ATORVASTATIN 10 MG TAB PO SCH (22:01)
[2018-03-22] MEDS: MONTELUKAST 10 MG TAB PO SCH (22:02)
[2018-03-22] MEDS: TEMAZEPAM 15 MG CAP PO SCH (22:05)
[2018-03-22 22:15] LABS: Glucose,Whole Blood 217 mg/dL (75-99)
--- NOTE | 2018-03-22 23:45 | PN ---
PROGRESS NOTE DATE OF SERVICE: 03/22/2018 PRESENTING COMPLAINT: Short of breath. INTERVAL HISTORY: This is a patient who is an ex-smoker, presented with severe COPD exacerbation. Breathing is much better. Less cough. Tolerating a diet. Overall she feels better, sitting up. REVIEW OF SYSTEMS: Done for constitutional, cardiovascular, GI, pulmonary; relevant findings as above. CURRENT MEDICATIONS: Current medications include DuoNeb, IV Solu-Medrol. PHYSICAL EXAMINATION: Temperature 98.3, pulse 84, respiration 18, blood pressure 142/85, pulse ox 93% on 4 L. GENERAL APPEARANCE: Sitting up, more comfortable. EYES: Pupils equal. Conjunctivae normal. HEENT: External appearance of nose and ears normal. Oral cavity normal. NECK: JVD not raised. Mass not palpable. RESPIRATORY: Effort increased. LUNGS: Improved air entry. Decreased wheezing. CARDIOVASCULAR: First and second sounds normal. No edema. ABDOMEN: Soft, non-tender. Liver and spleen not palpable. PSYCHIATRY: Alert and oriented x3. Less anxious-appearing. INVESTIGATIONS: Creatinine 0.84. ASSESSMENT: 1. Acute severe chronic obstructive pulmonary disease exacerbation in an ex-smoker with clinical improvement. 2. Chronic hypoxic respiratory failure, on 2 L oxygen at home, secondary to chronic obstructive pulmonary disease. 3. Acute hypoxic respiratory failure, present on admission from chronic obstructive pulmonary disease, improving. 4. 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 5. Chronic compression fracture of thoracic vertebra. 6. General anxiety disorder not otherwise specified. 7. Non-toxic multinodular goiter from hyperthyroidism; patient on Tapazole. 8. Depression not otherwise specified. 9. Thoracic aortic aneurysm being followed as an outpatient. 10.Chronic insomnia secondary to multiple medical problems. 11.Chronic hard of hearing. 12.Chronic diverticulosis, asymptomatic. 13.Chronic bilateral tinnitus. 14.Hyperlipidemia. 15.Essential hypertension. 16.Acute renal failure, probably prerenal, from decreased oral intake, now resolved. PLAN: Patient's IV fluids will be discontinued later today. Switch to oral prednisone in the morning. Care was discussed the patient. Hopefully discharge tomorrow. MMODL / IJN: [id number] /
[2018-03-23] MEDS: IPRATROPIUM-ALBUTEROL 3 ML NEB INHALATION SCH ×4 (00:34→12:16)
[2018-03-23] MEDS: FORMOTEROL FUMARATE 20 MCG/2 ML NEBU INHALATION SCH (07:07)
[2018-03-23] MEDS: BUDESONIDE 1 MG/2 ML NEBU INHALATION SCH (07:08)
[2018-03-23 07:36] LABS: Glucose,Whole Blood 109 mg/dL (75-99)
[2018-03-23] MEDS: INSULIN ASPART 100 UNIT/ML 1 ML 10 ML VIAL SQ SCH ×2 (07:43→12:10)
[2018-03-23] MEDS: ENOXAPARIN 40 MG/0.4 ML SYRINGE SQ SCH (07:56)
[2018-03-23] MEDS: ALPRAZolam 0.5 MG TAB PO SCH (07:56)
[2018-03-23] MEDS: METHIMAZOLE 5 MG TAB PO SCH (07:56)
[2018-03-23] MEDS: DULoxetine HCL 30 MG CAPSULE.DR PO SCH (07:56)
[2018-03-23] MEDS: DULoxetine HCL 60 MG CAPSULE.DR PO SCH (07:56)
[2018-03-23] MEDS: ASPIRIN 81 MG PO SCH (07:57)
[2018-03-23] MEDS: AZITHROMYCIN 500 MG TAB PO SCH (07:57)
[2018-03-23] MEDS: HYDROcodone/APAP 10-325MG 1 EACH TAB PO PRN (08:03)
[2018-03-23] MEDS ORDERED: predniSONE 20 MG TAB PO SCH (09:00)
--- NOTE | 2018-03-23 11:15 | P.PN ---
Subjective Progress Note Date: 03/23/18 Principal diagnosis: COPD exacerbation complicated by mild purulent tracheobronchitis Pulmonary consult dated 03/21/2018 67-year-old female well-known to our service. She sees my partner in the office for her severe/stage III COPD. Her FEV1 is 37% of predicted. She presents to the emergency room on the for complaints of increasing and worsening shortness of breath. She was inpatient back in early February I believe from March 06-. At that time she was seen by my partner and our nurse practitioner. She was discharged home on prednisone with a burst and taper. When she gets down below but 15 or 20 mg of prednisone she states that her lung disease starts to act up again. Over the weekend she was in the emergency room for increasing shortness of breath is treated with some breathing treatments and Solu-Medrol and sent home. She presented again on the with increasing and worsening shortness of breath. In addition, she was coughing and producing some phlegm. She denies any chest pain. She currently still smokes. No fever or chills. Coughing up minimal phlegm. Not coughing up any blood. After the second admission to the emergency room, they admitted her with a diagnosis of COPD exacerbation. The patient's chest x-ray shows changes only of COPD. She is on a good regimen of Singulair Spiriva Pulmicort pro-air and Brovana. I told the patient that she may be at the point in her chronic lung disease that she'll need to be on a small dose of prednisone on a daily basis. This causes her to become very tearful and start crying. I told her that this is something she'll need to discuss with Dr. Sánchez. Her past medical history is positive for severe COPD hypertension pneumonia hypothyroidism hyperlipidemia, as well as urinary tract infection, respiratory failure requiring mechanical ventilation, bowel obstruction, Graves' disease, and abdominal aortic aneurysm. Again, she continues to smoke cigarettes. On 03/22/2018 patient seen in follow-up. Much improved, breathing easier today , lung sounds are diminished, with some scattered faint wheezes, but patient is pretty near her baseline. Pulse ox on 4 L per nasal cannula is 94%, afebrile. Vital signs are stable. Patient has been treated with IV steroids, empiric antibiotics, and nebulized bronchodilators, patient states she's had a lot of anxiety, and depression in regards to loss of her . But clinically she is improved, increase activity as tolerated, and considered for discharge home from pulmonary perspective. She will need to be seen in the office by Dr. Sánchez, she may have to be maintained on maintenance prednisone dose. On 03/23/2018 patient seen in follow-up. Breathing much easier today, lung sounds are essentially clear, diminished at the bases. She is on 4 L per nasal cannula, and her pulse ox is 94%, she is afebrile. She is ambulating in the room, tolerating activity well. No acute issues overnight, from pulmonary perspective patient significantly improved, and she is requesting to go home today. Patient is stable for discharge home today. Objective - Vital Signs Vital signs: Vital Signs Temp 97.6 F 03/23/18 07:00 Pulse 86 03/23/18 07:32 Resp 20 03/23/18 07:00 BP 155/96 03/23/18 07:00 Pulse Ox 95 03/23/18 07:00 Intake & Output 03/22/18 03/23/18 03/23/18 18:59 06:59 18:59 Intake Total 1200 Balance 1200 Intake: Intake, IV Titration 1200 Amount Sodium Chloride 0.9% 1, 1200 000 ml @ 75 mls/hr IV . [id number] [facility] Rx#:[id number] Other: Voiding Method Bedside Commode # Voids 3 - Exam No acute distress, oriented 3. No jose respiratory distress. HEENT examination is grossly unremarkable. Mucous membranes are moist. No oral lesions. Nasal O2 in place. Neck supple. Full range of motion. No adenopathy thyromegaly or neck vein distention. Cardiovascular examination reveals regular rhythm rate. S1-S2 normal. No S3 or S4. No discernible murmur noted. Lungs reveal diminished breath sounds throughout. There is prolongation on forced maneuver. No crackles. Breath sounds equal bilaterally but diminished throughout. Abdomen soft bowel sounds are heard. No masses or tenderness. Extremities are intact. No cyanosis clubbing or edema. Skin is without rash or lesion. Neurologic examination is brief but nonfocal. - Labs CBC & Chem 7: 03/22/18 08:26 03/22/18 08:26 Labs: Abnormal Lab Results - Last 24 Hours (Table) 03/22/18 03/22/1818 Range/Units 11:22 16:49 22:08 POC Glucose (mg/dL) 127 H 137 H 217 H (75-99) mg/dL 03/23/18 Range/Units 07:33 POC Glucose (mg/dL) 109 H (75-99) mg/dL Assessment and Plan Plan: Assessment: COPD exacerbation complicated by mild purulent tracheobronchitis Acute on chronic hypoxemic respiratory failure History of hypertension History of pneumonia History of hypothyroidism History of ongoing tobacco use History of anxiety History of hyperlipidemia Plan: Patient is doing much better, breathing easier. No chest congestion, not bronchospastic. Patient is ready for discharge home today, as it was mentioned earlier, patient will go home on prednisone taper starting at 40, when she goes down to 20 mg daily, she will be seen in the office by Dr. Sánchez. Continue maintenance inhalers and nebulized treatments. I performed a history & physical examination of the patient and discussed their management with my nurse practitioner, Cher Allen. I reviewed the nurse practitioner's note and agree with the documented findings and plan of care. Lung sounds are positive for scattered wheezes throughout the lung gee. The findings and the impression was discussed with the patient. I attest to the documentation by the nurse practitioner. Time with Patient: Less than 30
[2018-03-23 11:39] LABS: Glucose,Whole Blood 111 mg/dL (75-99)
[2018-03-23 14:27] VITALS: BP 98/60; PULSE 90; RESP 16; TEMP 98.5
== END 2018-03-23 15:27 | disposition home health service (06) | DRG 190 ==
LOC: EC 17:18 → 4MS4W 19:53
PROVIDERS: ADMIT Hospitalist; ATTEND Hospitalist
DX: J44.1 Chronic obstructive pulmonary disease with (acute) exacerbation (principal); J96.21 Acute and chronic respiratory failure with hypoxia; M84.48XA Pathological fracture, other site, initial encounter for fracture; N17.9 Acute kidney failure, unspecified; I71.2 Thoracic aortic aneurysm, without rupture; E03.9 Hypothyroidism, unspecified; E78.5 Hyperlipidemia, unspecified; F32.9 Major depressive disorder, single episode, unspecified; F41.1 Generalized anxiety disorder; G43.909 Migraine, unspecified, not intractable, without status migrainosus; F51.04 Psychophysiologic insomnia; H91.90 Unspecified hearing loss, unspecified ear; H93.13 Tinnitus, bilateral; I10 Essential (primary) hypertension; K21.9 Gastro-esophageal reflux disease without esophagitis; K57.30 Diverticulosis of large intestine without perforation or abscess without bleeding; M19.90 Unspecified osteoarthritis, unspecified site; G89.29 Other chronic pain; M25.512 Pain in left shoulder; Z79.82 Long term (current) use of aspirin; Z79.899 Other long term (current) drug therapy; Z79.52 Long term (current) use of systemic steroids; Z90.5 Acquired absence of kidney; Z90.710 Acquired absence of both cervix and uterus; Z99.81 Dependence on supplemental oxygen; Z87.01 Personal history of pneumonia (recurrent); Z88.5 Allergy status to narcotic agent; Z88.7 Allergy status to serum and vaccine; Z87.891 Personal history of nicotine dependence; Z87.442 Personal history of urinary calculi; Z87.440 Personal history of urinary (tract) infections; Z86.010 Personal history of colon polyps; Z90.49 Acquired absence of other specified parts of digestive tract; Z98.49 Cataract extraction status, unspecified eye; Z96.1 Presence of intraocular lens; Z80.0 Family history of malignant neoplasm of digestive organs
CPT/HCPCS: 36415; 71046; 80048; 80053; 82550; 82553; 83036; 83735; 84484; 85025; 85610; 85730; 93005; 94640; 94760; 96365; 96366; 96375; 99285

== ENCOUNTER 2018-05-13 20:58 | Inpatient (IN) | payer MEDICARE ==
[2018-05-13] MEDS ORDERED: IPRATROPIUM-ALBUTEROL 3 ML NEB INHALATION STA (21:07)
[2018-05-13] MEDS ORDERED: ONDANSETRON 4 MG/2 ML VIAL IVP STA (21:25)
--- NOTE | 2018-05-13 21:26 | ED ---
SOB HPI - General Chief Complaint: Shortness of Breath Stated Complaint: SOB Time Seen by Provider: 05/13/18 21:02 Source: patient Mode of arrival: EMS Limitations: no limitations - History of Present Illness Initial Comments: Patient is a 68-year-old female presenting for shortness breath. The patient states that she has a history of COPD in his oxygen dependent at home. Earlier today, she started having worsening shortness of breath as well as cough. She denies any fevers or chills as well as abdominal pain, nausea/vomiting/ diarrhea. She also denies any chest pain but states that she has had sputum with cough. She also states that she has never been intubated or put on BiPAP because of the respiratory failure. - Related Data Home Medications Medication Instructions Recorded Confirmed Montelukast [Singulair] 10 mg PO HS@2130 05/04/14 05/13/18 Aspirin EC [Ecotrin Low Dose] 81 mg PO DAILY 10/22/14 05/13/18 Budesonide [Pulmicort] 1 mg INHALATION RT-BID@1000,1400 10/22/14 05/13/18 Albuterol Nebulized [Ventolin 2.5 mg INHALATION 03/25/17 05/13/18 Nebulized] RT-QID@,,, Albuterol Sulfate [Proair Hfa] 2 puff INHALATION RT-QID PRN 03/25/17 05/13/18 Arformoterol Tartrate [Brovana] 15 mcg INHALATION RT-BID@0800,1700 03/25/17 Calcium Carbonate/Vitamin D3 1 tab PO DAILY@1700 03/25/17 05/13/18 [Calcium 600-Vit D3 200 Tablet] DULoxetine HCL [Cymbalta] 60 mg PO DAILY@0800 03/25/17 05/13/18 Metoprolol Succinate [Toprol XL] 25 mg PO HS@1800 03/25/17 05/13/18 amLODIPine [Norvasc] 10 mg PO HS@1800 03/25/17 05/13/18 Hydrocodone/Acetaminophen [[place] 1 tab PO Q6H PRN 07/08/17 05/13/18 10-325] Methimazole [Tapazole] 5 mg PO DAILY 07/08/17 05/13/18 Atorvastatin [Lipitor] 10 mg PO HS 09/20/17 05/13/18 ALPRAZolam [Xanax] 0.5 mg PO DAILY PRN 03/06/18 05/13/18 DULoxetine HCL [Cymbalta] 30 mg PO DAILY@0800 03/06/18 05/13/18 Temazepam [Restoril] 15 mg PO HS 03/06/18 05/13/18 predniSONE 20 mg PO DAILY 03/20/18 03/20/18 Previous Rx's Medication Instructions Recorded Ondansetron HCl [Zofran] 4 mg PO DAILY 30 Days #30 tablet 03/08/18 Albuterol Sulfate [Proair Hfa] 1 - 2 puff INHALATION Q6HR PRN #1 03/23/18 inhaler Azithromycin [Zithromax] 500 mg PO DAILY #3 tab 03/23/18 Ipratropium-Albuterol Nebulize 3 ml INHALATION QID #120 ampul.neb 03/23/18 [Duoneb 0.5 mg-3 mg/3 ml Soln] predniSONE 10 mg PO DAILY #30 tab 03/23/18 Allergies Allergy/AdvReac Type Severity Reaction Status Date / Time Influenza Virus Vaccines Allergy Dyspnea Verified 03/20/18 18:01 hydromorphone [From Dilaudid] AdvReac Hallucinati Verified 03/20/18 18:01 ons Review of Systems ROS Statement: Those systems with pertinent positive or pertinent negative responses have been documented in the HPI. Constitutional: Negative for chills, fatigue and fever. HENT: Negative for congestion. Respiratory: Positive for chest tightness, shortness of breath and wheezing. Positive for cough Cardiovascular: Negative for chest pain and palpitations. Gastrointestinal: Negative for abdominal pain. Negative for abdominal distention , diarrhea, nausea and vomiting. Genitourinary: Negative for dysuria. Musculoskeletal: Negative for back pain, neck pain and neck stiffness. Skin: Negative for color change. Neurological: Negative for dizziness, speech difficulty, weakness and light- headedness. Psychiatric/Behavioral: Negative for agitation and confusion. Negative for anxiety ROS Other: All systems not noted in ROS Statement are negative. Past Medical History Past Medical History: Asthma, COPD, Hypertension, Pneumonia, Thyroid Disorder Additional Past Medical History / Comment(s): recent UTI-now resolved, FEB 2017 -resp. failure-on vent. in [place] after, O2 dependent- 3L/NC continuously, pneumonia 2010, acute trachebronchitis, chronic lt shoulder pain , DJD, bowel obstruction , donated R kidney to son, post colonoscopy with. polypectomy bleed and was in ICU, Graves disease, AAA found in June 2012 - has been stable since then History of Any Multi-Drug Resistant Organisms: None Reported Past Surgical History: Cholecystectomy, Hysterectomy, Orthopedic Surgery Additional Past Surgical History / Comment(s): R nephrectomy, 2012 laparotomy with lysis of adhesions from kidney surgery causing bowel obstruction. L shoulder and collar bone surgery, colonoscopy with polypectomy, cataract surg- lens implants. Past Anesthesia/Blood Transfusion Reactions: No Reported Reaction Additional Past Anesthesia/Blood Transfusion Reaction / Comment(s): Pt has never received blood. Past Psychological History: Depression Smoking Status: Former smoker - Past Family History Father Family Medical History: Cancer Additional Family Medical History / Comment(s): Pancreatic cancer and passed when he was 58 Mother Family Medical History: No Reported History Additional Family Medical History / Comment(s): None General Exam - General Exam Comments Initial Comments: Constitutional: Pt is oriented to person, place, and time. Pt appears well- developed and well-nourished. Patient is in respiratory distress. HENT: Head: Normocephalic and atraumatic. Eyes: EOM are normal. Neck: Normal range of motion. Neck supple. Cardiovascular: Tachycardia present, regular rhythm, S1 normal, S2 normal and normal heart sounds. Exam reveals no gallop and no friction rub. No murmur heard. No lower extremity edema noted Pulmonary/Chest: Tachypnea present and wheezes in all lung field noted. Patient is experiencing respiratory distress Abdominal: Soft. Bowel sounds are normal. Pt exhibits no shifting dullness, no distension, no pulsatile liver, no fluid wave, no abdominal bruit and no ascites. There is no tenderness. There is no rigidity, no rebound, no guarding, no tenderness at McBurney's point and negative Valdes's sign. Musculoskeletal: Normal range of motion. Neurological: Pt is alert and oriented to person, place, and time. No cranial nerve deficit. Skin: Skin is warm and dry. No rash noted. Pt is not diaphoretic. No erythema. No pallor. Psychiatric: Pt has a normal mood and affect. Pt behavior is normal. Thought content normal. Limitations: no limitations Course Vital Signs 05/13/18 05/13/18 05/13/18 21:05 21:12 21:22 Temperature 98.1 F Pulse Rate 118 H 121 H 110 H Respiratory 30 H Rate Blood Pressure 123/81 O2 Sat by Pulse 89 L Oximetry 05/13/18 05/13/18 22:00 22:15 Temperature Pulse Rate Respiratory 30 H Rate Blood Pressure 123/81 O2 Sat by Pulse 96 Oximetry Medical Decision Making - Medical Decision Making Upon initial arrival to the [facility] department, the patient exhibited severe dyspnea with a rate of over 33. She was also hypoxic and it was attempted to stabilize a patient with a breathing treatment. However, the patient remained tachypnea and therefore patient was placed on BiPAP. She was also not given steroids here in the emergency department because she had preceded this by EMS. After BiPAP placement, the patient's respiratory status significantly improved and intubation was not needed. However, it was thought that the patient's breathing status was still tenuous and therefore she could be weaned off in the morning. Laboratory studies showed that there is significant leukocytosis at 33.2. Electrolytes are relatively within normal limits and chest x-ray showed right-sided infiltrate consistent with pneumonia. Because the patient had multiple hospitalizations within the last 90 days, she was treated for age With vancomycin and Zosyn. Additionally, blood cultures were obtained. 30 mL per KG bolus was not initiated as there is still concern of underlying CHF.Explained all labs and diagnostic test results and that we will admit patient to hospital. Pt is agreeable to plan and case has been discussed with Dr. Gilliland and Princess and they agree to accept the pt for ICU placement. - Lab Data Result diagrams: 05/13/18 21:16 05/13/18 21:16 Lab Results 05/13/18 05/13/18 05/13/18 Range/Units 21:10 21:16 21:16 WBC 33.2 H (3.8-10.6) k/uL RBC 4.73 (3.80-5.40) m/uL Hgb 13.1 (11.4-16.0) gm/dL Hct 41.2 (34.0-46.0) % MCV 87.2 (80.0-100.0) fL MCH 27.7 (25.0-35.0) pg MCHC 31.8 (31.0-37.0) g/dL RDW 15.3 (11.5-15.5) % Plt Count 428 (150-450) k/uL Neutrophils % 91 % Lymphocytes % 4 % Monocytes % 4 % Eosinophils % 0 % Basophils % 0 % Neutrophils # 30.1 H (1.3-7.7) k/uL Lymphocytes # 1.3 (1.0-4.8) k/uL Monocytes # 1.4 H (0-1.0) k/uL Eosinophils # 0.1 (0-0.7) k/uL Basophils # 0.1 (0-0.2) k/uL PT (9.0-12.0) sec INR (<1.2) APTT (22.0-30.0) sec Sodium 138 (137-145) mmol/L Potassium 3.4 L (3.5-5.1) mmol/L Chloride 98 (98-107) mmol/L Carbon Dioxide 33 H (22-30) mmol/L Anion Gap 7 mmol/L BUN 23 H (7-17) mg/dL Creatinine 0.92 (0.52-1.04) mg/dL Est GFR (CKD-EPI)AfAm 75 (>60 ml/min/1.73 sqM) Est GFR (CKD-EPI)NonAf 65 (>60 ml/min/1.73 sqM) Glucose 120 H (74-99) mg/dL Plasma Lactic Acid Arben 2.3 H* (0.7-2.0) mmol/L Calcium 10.3 H (8.4-10.2) mg/dL Total Bilirubin 0.9 (0.2-1.3) mg/dL AST 19 (14-36) U/L ALT 24 (9-52) U/L Alkaline Phosphatase 79 (38-126) U/L Troponin I (0.000-0.034) ng/mL NT-Pro-B Natriuret Pep pg/mL Total Protein 6.5 (6.3-8.2) g/dL Albumin 3.8 (3.5-5.0) g/dL 05/13/18 05/13/18 05/13/18 Range/Units 21:16 21:16 21:16 WBC (3.8-10.6) k/uL RBC (3.80-5.40) m/uL Hgb (11.4-16.0) gm/dL Hct (34.0-46.0) % MCV (80.0-100.0) fL MCH (25.0-35.0) pg MCHC (31.0-37.0) g/dL RDW (11.5-15.5) % Plt Count (150-450) k/uL Neutrophils % % Lymphocytes % % Monocytes % % Eosinophils % % Basophils % % Neutrophils # (1.3-7.7) k/uL Lymphocytes # (1.0-4.8) k/uL Monocytes # (0-1.0) k/uL Eosinophils # (0-0.7) k/uL Basophils # (0-0.2) k/uL PT 9.4 (9.0-12.0) sec INR 0.9 (<1.2) APTT 18.8 L (22.0-30.0) sec Sodium (137-145) mmol/L Potassium (3.5-5.1) mmol/L Chloride (98-107) mmol/L Carbon Dioxide (22-30) mmol/L Anion Gap mmol/L BUN (7-17) mg/dL Creatinine (0.52-1.04) mg/dL Est GFR (CKD-EPI)AfAm (>60 ml/min/1.73 sqM) Est GFR (CKD-EPI)NonAf (>60 ml/min/1.73 sqM) Glucose (74-99) mg/dL Plasma Lactic Acid Arben (0.7-2.0) mmol/L Calcium (8.4-10.2) mg/dL Total Bilirubin (0.2-1.3) mg/dL AST (14-36) U/L ALT (9-52) U/L Alkaline Phosphatase (38-126) U/L Troponin I <0.012 (0.000-0.034) ng/mL NT-Pro-B Natriuret Pep 360 pg/mL Total Protein (6.3-8.2) g/dL Albumin (3.5-5.0) g/dL - EKG Data EKG Comments: EKG shows sinus tachycardia with rate of 109, MI interval 146, QRS 80, QTC 449 Critical Care Time Critical Care Time: Yes (30) Total Critical Care Time: 30 (Possibly 30 minutes of critical care time was spent with this patient evaluating her and putting her on the BiPAP machine.) Disposition Clinical Impression: Severe sepsis, COPD exacerbation, Respiratory distress, HCAP (healthcare- associated pneumonia) Disposition: ADMITTED IP TO THIS HOSP Condition: Fair Referrals: Piedad Sánchez MD [Primary Care Provider] - 1-2 days Decision to Admit Reason: Admit from EC Decision Date: 05/13/18 Decision Time: 22:52
[2018-05-13 21:31] LABS: Basophils # (A) 0.1 k/uL (0-0.2); Basophils % (A) 0 %; Eosinophils # (A) 0.1 k/uL (0-0.7); Eosinophils % (A) 0 %; HCT 41.2 % (34.0-46.0); HGB 13.1 gm/dL (11.4-16.0); Lymphocytes # (A) 1.3 k/uL (1.0-4.8); Lymphocytes % (A) 4 %; MCH 27.7 pg (25.0-35.0); MCHC 31.8 g/dL (31.0-37.0); MCV 87.2 fL (80.0-100.0); Mean Platelet Volume 6.3; Monocytes # (A) 1.4 k/uL (0-1.0); Monocytes % (A) 4 %; Neutrophils # (A) 30.1 k/uL (1.3-7.7); Neutrophils % (A) 91 %; Platelet Count 428 k/uL (150-450); RBC 4.73 m/uL (3.80-5.40); RDW 15.3 % (11.5-15.5); WBC 33.2 k/uL (3.8-10.6)
--- NOTE | 2018-05-13 21:33 | XR ---
EXAMINATION TYPE: XR chest 1V portable DATE OF EXAM: 05/13/2018 COMPARISON: 03/20/2018 HISTORY: Shortness of breath. History of asthma. TECHNIQUE: Single frontal view of the chest is obtained. FINDINGS: In addition to chronic parenchymal changes there are hazy bibasilar reticular opacities. P ulmonary hyperinflation is also seen compatible with underlying COPD. Cardia mediastinal silhouette i s upper limits of normal. Left-sided clavicular surgical fixation plate and cortical screws are noted . IMPRESSION: In addition to chronic changes of COPD and chronic interstitial prominence there are new hazy bibasilar opacities that may represent atelectasis or pneumonia in the appropriate clinical set ting.
[2018-05-13 21:39] LABS: Albumin 3.8 g/dL (3.5-5.0); Calcium 10.3 mg/dL (8.4-10.2); Potassium 3.4 mmol/L (3.5-5.1); Total Bilirubin 0.9 mg/dL (0.2-1.3); Total Protein 6.5 g/dL (6.3-8.2)
[2018-05-13 21:42] LABS: INR 0.9 (<1.2); Prothrombin Time 9.4 sec (9.0-12.0)
[2018-05-13 21:55] LABS: Partial Thromboplastin Time 18.8 sec (22.0-30.0)
[2018-05-13] MEDS ORDERED: VANCOMYCIN IV PER PHARMACY 1 EACH MISC MISCELLANE PRN (22:22)
[2018-05-13] MEDS ORDERED: NALOXONE 0.4 MG/ML 1 ML VIAL IV PRN (22:46)
[2018-05-13] MEDS ORDERED: ACETAMINOPHEN TAB 325 MG TAB PO PRN (22:46)
[2018-05-13] MEDS ORDERED: VANCOMYCIN 1,000 MG in SODIUM CHLORIDE 0.9% 250 ML IVPB SCH (23:00)
[2018-05-13] MEDS: SODIUM CHLORIDE 0.9% 1,000 ML IV SCH (23:55)
[2018-05-13] MEDS: PIPERACILLIN-TAZOBACTAM 3.375 GM in SODIUM CHLORIDE 0.9% 100 ML IVPB SCH (23:55)
[2018-05-14 00:30] LABS: Glucose,Whole Blood 169 mg/dL (75-99)
[2018-05-14] MEDS ORDERED: Potassium Replacement Protocol 1 EACH MISC MISCELLANE PRN (00:46)
[2018-05-14] MEDS: SODIUM CHLORIDE 0.9% 1,000 ML IV SCH (00:56)
[2018-05-14] MEDS: POTASSIUM CHLORIDE ER 20 MEQ TAB.ER PO SCH ×3 (01:01→06:54)
[2018-05-14 02:47] LABS: Basophils % (A) 0 %; Eosinophils % (A) 0 %; HCT 35.4 % (34.0-46.0); HGB 11.6 gm/dL (11.4-16.0); Lymphocytes # (A) 0.3 k/uL (1.0-4.8); Lymphocytes % (A) 1 %; MCH 28.4 pg (25.0-35.0); MCHC 32.7 g/dL (31.0-37.0); MCV 86.6 fL (80.0-100.0); Mean Platelet Volume 6.2; Monocytes # (A) 0.7 k/uL (0-1.0); Monocytes % (A) 2 %; Neutrophils # (A) 32.9 k/uL (1.3-7.7); Neutrophils % (A) 97 %; Platelet Count 318 k/uL (150-450); RBC 4.09 m/uL (3.80-5.40); RDW 15.2 % (11.5-15.5); WBC 34.1 k/uL (3.8-10.6)
[2018-05-14 02:49] LABS: Albumin 3.4 g/dL (3.5-5.0); Calcium 9.4 mg/dL (8.4-10.2); Magnesium 1.9 mg/dL (1.6-2.3); Potassium 3.5 mmol/L (3.5-5.1); Total Bilirubin 0.8 mg/dL (0.2-1.3); Total Protein 5.7 g/dL (6.3-8.2)
[2018-05-14] MEDS: IPRATROPIUM-ALBUTEROL 3 ML NEB INHALATION PRN ×2 (07:31→11:08)
--- NOTE | 2018-05-14 08:32 | XR ---
EXAMINATION TYPE: XR chest 1V portable DATE OF EXAM: 05/14/2018 HISTORY: sob. REFERENCE: Previous study dated 05/13/2018. FINDINGS: There is been previous internal fixation of the left clavicle. The lungs are overinflated. The heart is mildly enlarged. There is left basilar airspace disease. No definite pleural fluid is seen. IMPRESSION: 1. COPD. 2. MILD CARDIOMEGALY. 3. LEFT BASILAR AIRSPACE DISEASE. 4. POSTSURGICAL CHANGE.
[2018-05-14] MEDS: PIPERACILLIN-TAZOBACTAM 3.375 GM in SODIUM CHLORIDE 0.9% 100 ML IVPB SCH ×2 (09:52→17:32)
[2018-05-14] MEDS ORDERED: ALPRAZolam 0.5 MG TAB PO PRN (10:01)
--- NOTE | 2018-05-14 11:13 | CT ---
EXAMINATION TYPE: CT chest angio for PE DATE OF EXAM: 05/14/2018 COMPARISON: None. HISTORY: difficulty breathing CT DLP: 281.9 mGycm Automated exposure control for dose reduction was used. CONTRAST: CT Chest for pulmonary embolism performed with with IV Contrast, patient injected with 75 mL of Isovu e 370. FINDINGS: There are emphysematous changes, worse on the right than the left. There is atelectatic nick nge present at the right lung base. There is collapse of the left lower lobe. There is a large 6.9 x 6.1 x 8.9 cm left hilar mass which is occluding the left lower lobe bronchus. There is a 1.4 cm right hilar lymph node. There is a 4 cm subcarinal lymph node mass. There is no evidence of pulmonary embolus. The aortic root is normal in caliber. The proximal arch is aneurysmal measuring 3.1 cm. The proximal descending thoracic aorta is mildly aneurysmal measuring 3.1 cm. At the level of the aortic hiatus, t he aorta is again aneurysmal measuring 4 cm. The suprarenal abdominal aorta is aneurysmal measuring 4 .8 cm and has circumferential thrombus present. The infrarenal abdominal aorta is normal in caliber. The heart is mildly enlarged. There is no pleural or pericardial fluid. There is granulomatous change in the spleen. Visualized portions of the upper abdomen are otherwise u nremarkable. There is mild hypertrophic spondylosis within the spine. IMPRESSION: 1. THIS EXAMINATION IS NEGATIVE FOR PULMONARY EMBOLUS. 2. LARGE, LEFT HILAR MASS OCCLUDING THE LEFT LOWER LOBE BRONCHUS WITH COLLAPSE OF THE LEFT LOWER LOBE . 3. CONTRALATERAL HILAR ADENOPATHY WELL SUBCARINAL ADENOPATHY. 4. SEVERE EMPHYSEMATOUS CHANGE. 5. THORACIC AORTIC ANEURYSM WITH MAXIMAL TRANSVERSE DIAMETER MEASURING 4.8 CM. 6. OLD GRANULOMATOUS DISEASE OF THE SPLEEN. 7. MILD DEGENERATIVE CHANGE WITHIN THE SPINE.
[2018-05-14] MEDS ORDERED: IPRATROPIUM-ALBUTEROL 3 ML NEB INHALATION PRN (11:21)
[2018-05-14] MEDS: HEPARIN SODIUM,PORCINE 5,000 UNIT/ML 1 ML VIAL SQ SCH ×2 (11:39→17:32)
[2018-05-14] MEDS: HYDROcodone/APAP 10-325MG 1 EACH TAB PO PRN ×3 (11:40→23:44)
[2018-05-14] MEDS ORDERED: METHIMAZOLE 5 MG TAB PO STA (11:42)
[2018-05-14] MEDS ORDERED: ASPIRIN 81 MG PO STA (11:46)
[2018-05-14] MEDS ORDERED: DULoxetine HCL 20 MG CAPSULE.DR PO STA (11:47)
[2018-05-14] MEDS ORDERED: DULoxetine HCL 30 MG CAPSULE.DR PO STA (11:47)
[2018-05-14] MEDS ORDERED: METOPROLOL SUCCINATE (ER) 25 MG TAB.ER.24H PO STA (11:48)
[2018-05-14] MEDS: IPRATROPIUM-ALBUTEROL 3 ML NEB INHALATION SCH ×3 (13:01→19:33)
--- NOTE | 2018-05-14 14:11 | P.CNPUL ---
History of Present Illness Consult date: 05/14/18 Reason for consult: dyspnea, COPD, lung mass History of present illness: This is a 68-year-old female patient who has advanced oxygen-dependent COPD with an FEV1 of 37% of predicted. The patient is very well-known to me. The patient has a maintained on a combination of Brovana, Pulmicort and Spiriva on outpatient basis. She has also required steroids on a long-term basis regarding her COPD. The patient has had multiple admissions to the hospital for recurrent COPD exacerbation. Going back to the records, the patient was hearing the hospital February 2018 and she was in [facility] approximately 2 weeks ago for the same. She was treated and she was discharged home over immediately after the discharge the patient gets short of breath and she comes back for the same complaints of increased shortness of breath and dyspnea chest tightness and wheezing. Note that she has a large multinodular goiter along with symptoms of hyperthyroidism and currently she is on methimazole. No stridor. During this current admission, the patient came in with worsening shortness of breath. In the ED, the patient had a chest x-ray and subsequently she was placed on a BiPAP at a pressure of 12/5 cm of water with an FiO2 of 60%. I saw this morning. I thought she was looking better and I weaned her off to oxygen by nasal cannula at 4 L. She was able to tolerate that. I thought also that there are some atelectatic changes and fullness within the mediastinum. Based on that, I ordered a computed tomography scan of the chest and a resolved remarkably abnormal. The patient's exam was negative for pulmonary embolism. There was however a large left hilar mass occluding the left lower lobe bronchus with collapse of the left lower lobe. There was also contralateral hilar lymphadenopathy as well as subcarinal lymphadenopathy in addition to severe emphysematous changes in the background. There was also a thoracic aortic aneurysm measuring 4.8 cm in size. The goiter was again seen in the upper thoracic inlet area yet there was no significant mass effect on the trachea. Note that the hilar mass was measuring 6 x 7 x 8.9 cm in size and there was occlusion of the left lower lobe bronchus. Review of Systems Patient reports lethargy. She reports cough and shortness of breath. She reports back pain. She reports no dry eyes, no vision change, and no irritation. She reports no difficulty hearing and no ear pain. She reports no frequent nosebleeds, no nose problems, and no sinus problems. She reports no sore throat, no bleeding gums, no snoring, no dry mouth, no mouth ulcers, no oral abnormalities, and no teeth problems. She reports no chest pain, no arm pain on exertion, no shortness of breath when walking, no shortness of breath when lying down, no palpitations, and no known heart murmur. She reports no abdominal pain, no nausea, no vomiting, no constipation, normal appetite, no diarrhea, not vomiting blood, no dyspepsia, and no GERD. She reports no incontinence, no difficulty urinating, no hematuria, and no increased frequency. She reports no abnormal mole, no jaundice, no rashes, and no laceration. She reports no loss of consciousness, no weakness, no numbness, no seizures, no dizziness, no migraines, no headaches, and no tremor. She reports no depression, no sleep disturbances, feeling safe in a relationship, no alcohol abuse, no anxiety, no hallucinations, and no suicidal thoughts. She reports no fatigue. She reports no swollen glands, no bruising, and no excessive bleeding. She reports no runny nose, no sinus pressure, no itching, no hives, and no frequent sneezing. The patient has a poor appetite and she's been somewhat gaining weight. She has had multiple has position over this past few months for problems that the COPD exacerbation shortness of breath. 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 with a single kidney, previous history of ventilator dependent respiratory failure requiring intubation mechanical ventilation and the last bout of mechanical ventilation was in February 2017 during a visit to [place] , hyperlipidemia, hypertension, chronic anxiety, depression, thoracic aortic aneurysm as discussed above, chronic hypoxic respiratory failure, degenerative arthritis, history of tinnitus, history of migraines, history of urine checked infections, history of nephrolithiasis, history of diverticular disease, history of colonic polyps, history of bowel obstruction requiring surgical intervention. History of Any Multi-Drug Resistant Organisms: None Reported Past Surgical History: Cholecystectomy, Hysterectomy, Orthopedic Surgery Additional Past Surgical History / Comment(s): R nephrectomy, 2012 laparotomy with lysis of adhesions from kidney surgery causing bowel obstruction. L shoulder and collar bone surgery, colonoscopy with polypectomy, cataract surg- lens implants. AAA, Past Anesthesia/Blood Transfusion Reactions: No Reported Reaction Additional Past Anesthesia/Blood Transfusion Reaction / Comment(s): Pt has never received blood. Past Psychological History: Depression Additional Psychological History / Comment(s): Pt has an adult son navarro residing with her. Her spouse in October of 2017. no home care services recieved. She has home O2 and a nebulizer that she uses and also hasbsc ,shower chair and walker if needed. She drives. Smoking Status: Former smoker Past Alcohol Use History: None Reported Additional Past Alcohol Use History / Comment(s): Pt started smoking in 1975 and quit smoking in 2012. smoked 1/2 ppd Past Drug Use History: None Reported - Past Family History Father Family Medical History: Cancer Additional Family Medical History / Comment(s): Pancreatic cancer and passed when he was 58 Mother Family Medical History: No Reported History Additional Family Medical History / Comment(s): None Medications and Allergies Home Medications Medication Instructions Recorded Confirmed Type Aspirin EC [Ecotrin Low Dose] 81 mg PO DAILY 10/22/14 05/14/18 History Budesonide [Pulmicort] 1 mg INHALATION RT-BID@1000,1400 10/22/14 05/13/18 History Albuterol Nebulized [Ventolin 2.5 mg INHALATION 03/25/17 05/14/18 History Nebulized] RT-QID@08,12,17,21 Albuterol Sulfate [Proair Hfa] 2 puff INHALATION RT-QID PRN 03/25/17 05/14/18 History Arformoterol Tartrate [Brovana] 15 mcg INHALATION RT-BID@0800,1700 03/25/17 History Calcium Carbonate/Vitamin D3 1 tab PO DAILY@1700 03/25/17 05/14/18 History [Calcium 600-Vit D3 200 Tablet] DULoxetine HCL [Cymbalta] 60 mg PO DAILY@0800 03/25/17 05/14/18 History Metoprolol Succinate [Toprol XL] 25 mg PO DAILY 03/25/17 05/14/18 History amLODIPine [Norvasc] 10 mg PO DAILY 03/25/17 05/14/18 History Hydrocodone/Acetaminophen [Tillatoba 1 tab PO Q6H PRN 07/08/17 05/14/18 History 10-325] Methimazole [Tapazole] 5 mg PO DAILY 07/08/17 05/14/18 History Atorvastatin [Lipitor] 10 mg PO HS 09/20/17 05/13/18 History ALPRAZolam [Xanax] 0.5 mg PO DAILY PRN 03/06/18 05/13/18 History DULoxetine HCL [Cymbalta] 30 mg PO DAILY@0800 03/06/18 05/14/18 History Temazepam [Restoril] 15 mg PO HS 03/06/18 05/14/18 History Ondansetron HCl [Zofran] 4 mg PO DAILY 30 Days #30 tablet 03/08/18 05/14/18 Rx Azithromycin [Zithromax] 500 mg PO DAILY #3 tab 03/23/18 05/13/18 Rx Ipratropium-Albuterol Nebulize 3 ml INHALATION QID #120 ampul.neb 03/23/1805/13 Rx [Duoneb 0.5 mg-3 mg/3 ml Soln] Cholecalciferol [Vitamin D3] 1,000 unit PO W/SUPPER 05/14/18 05/14/18 History Ferrous Sulfate [Feosol] 325 mg PO W/SUPPER 05/14/18 05/14/18 History Loperamide [Imodium] 2 mg PO DAILY PRN 05/14/18 05/14/18 History Potassium Chloride ER [K-Dur 10] 10 meq PO W/SUPPER 05/14/18 05/14/18 History Allergies Allergy/AdvReac Type Severity Reaction Status Date / Time Influenza Virus Vaccines Allergy Dyspnea Verified 05/14/18 08:34 hydromorphone [From Dilaudid] AdvReac Hallucinati Verified 05/14/18 08:34 ons Physical Exam Vitals: Vital Signs Temp Pulse Pulse Resp BP BP Pulse Ox 05/14/18 12:12 98.4 F 102 H 22 146/86 95 05/14/18 12:00 102 H 22 05/14/18 11:20 96 05/14/18 11:08 93 05/14/18 11:04 96 19 136/85 97 05/14/18 10:15 97 24 150/90 94 L 05/14/18 09:00 98 21 135/83 97 05/14/18 08:00 98.3 F 90 21 138/81 94 L 05/14/18 07:45 87 05/14/18 07:32 86 05/14/18 07:00 87 18 127/75 96 05/14/18 06:00 89 18 152/91 97 05/14/18 05:00 97 18 147/91 96 05/14/18 04:00 97.3 F L 92 18 147/91 97 05/14/18 03:00 92 19 119/86 96 05/14/18 02:00 95 29 H 119/86 96 05/14/18 01:00 102 H 21 94 L 05/14/18 00:00 98 21 131/78 05/13/18 23:59 98 22 131/78 05/13/18 23:14 99.6 F 119/86 95 05/13/18 23:00 101 H 23 131/78 94 L 05/13/18 22:15 30 H 05/13/18 22:00 123/81 96 05/13/18 21:22 110 H 05/13/18 21:12 121 H 05/13/18 21:05 98.1 F 118 H 30 H 123/81 89 L Intake and Output 05/13/18 05/14/18 05/14/18 22:59 06:59 14:59 Intake Total 625 450 Output Total 625 Balance 625 -175 Intake: IV 375 Sodium Chloride 0.9% 1, 375 000 ml @ 75 mls/hr IV . [id number] ALEX Rx#:[id number] Intake, IV Titration 625 75 Amount Piperacillin-Tazobactam 3 75 .375 gm In Sodium Chloride 0.9% 100 ml @ 25 mls/hr IVPB Q8HR ALEX Rx# :[id number] Sodium Chloride 0.9% 1, 300 75 000 ml @ 75 mls/hr IV . [id number] ALEX Rx#:[id number] Vancomycin 1,000 mg In 250 Sodium Chloride 0.9% 250 ml @ 125 mls/hr IVPB Q24H ALEX Rx#:[id number] Output: Urine 625 Other: Voiding Method Bedside Commode Bedside Commode # Voids 0 2 Weight 55.338 kg 64.6 kg Gen. appearance the patient is in mild degree of shortness of breath even at rest. She is able to tolerate the BiPAP. She is currently on high flow oxygen at 5 L a minute nasal cannula. She is able to speak up. This is however she is quite anxious at this point in time. Head exam was generally normal. There was no scleral icterus or corneal arcus. Mucous membranes were moist. Neck was supple and without jugular venous distension, thyromegaly, or carotid bruits. Carotids were easily palpable bilaterally. There was no adenopathy. Lungs sounds are diminished bilaterally especially in the left lower lobe area and this Extremity wheezes heard throughout the lung. Then prolongation of expiratory phase of breathing. Cardiac exam revealed the PMI to be normally situated and sized. The rhythm was regular and no extrasystoles were noted during several minutes of auscultation. The first and second heart sounds were normal and physiologic splitting of the second heart sound was noted. There were no murmurs, rubs, clicks, or gallops. Abdominal exam revealed normal bowel sounds. The abdomen was soft, non-tender, and without masses, organomegaly, or appreciable enlargement of the abdominal aorta. Examination of the extremities revealed easily palpable radial, femoral and pedal pulses. There was no cyanosis, clubbing or edema. Examination of the skin revealed no evidence of significant rashes, suspicious appearing nevi or other concerning lesions. Neurologically awake and alert there is no focal neurological deficit. Psychiatrically the patient has chronic anxiety and depression. Results - Laboratory Findings CBC and BMP: 05/14/18 02:01 05/14/18 11:19 PT/INR, D-dimer PT 9.4 sec (9.0-12.0) 05/13/18 21:16 INR 0.9 (<1.2) 05/13/18 21:16 Abnormal lab findings: Abnormal Labs 05/13/18 05/13/18 05/13/18 21:10 21:16 21:16 WBC 33.2 H Neutrophils # 30.1 H Lymphocytes # Monocytes # 1.4 H APTT Potassium 3.4 L Carbon Dioxide 33 H BUN 23 H Glucose 120 H POC Glucose (mg/dL) Plasma Lactic Acid Arben 2.3 H* Calcium 10.3 H Total Protein Albumin 05/13/18 05/14/18 05/14/18 21:16 00:28 02:01 WBC 34.1 H Neutrophils # 32.9 H Lymphocytes # 0.3 L Monocytes # APTT 18.8 L Potassium Carbon Dioxide BUN Glucose POC Glucose (mg/dL) 169 H Plasma Lactic Acid Arben Calcium Total Protein Albumin 05/14/18 02:01 WBC Neutrophils # Lymphocytes # Monocytes # APTT Potassium Carbon Dioxide 32 H BUN 24 H Glucose 195 H POC Glucose (mg/dL) Plasma Lactic Acid Arben Calcium Total Protein 5.7 L Albumin 3.4 L - Diagnostic Findings Chest x-ray: image reviewed CT scan - chest: image reviewed Assessment and Plan Plan: Assessment 1 acute COPD exacerbation with secondary shortness of breath 2 large left hilar mass measuring 6 x 8 cm in size causing obstruction of the left lower lobe bronchus with limited atelectasis of the left lung base. The patient has extensive mediastinal lymphadenopathy, subcarinal lymphadenopathy, right hilar lymphadenopathy. The presentation is very much suggestive of an underlying bronchogenic carcinoma, consider small cell lung cancer 3 acute hypoxic respiratory failure secondary to above, currently on 5 L of oxygen nasal cannula, earlier requiring BiPAP 4 multinodular goiter, on methimazole 4 chronic hypoxic respiratory failure typically on 2 L of oxygen nasal cannula 5 history of compression fracture of the thoracic spine maintained on a combination of calcium and vitamin D 6 history of total nephrectomy and the patient undergone nephrectomy for donation and the renal function is stable for now 7 chronic anxiety 8 degenerative arthritis 9 thoracic aortic aneurysm 10 chronic insomnia 11 previous history of bowel obstruction requiring lysis of adhesion 12 diverticular disease 13 nephrolithiasis 14 hypertension 13 hyperlipidemia 14 debility secondary to above-mentioned comorbidities Plan We'll continue current treatment. Would like to optimize this patient's COPD exacerbation with a combination of bronchodilators and steroids and antibiotics. I am going to discontinue the vancomycin and keep Zosyn for now. If further optimized, bronchoscopy will be done for tissue diagnosis. There is a high concern for malignancy based on the CAT scan findings and I'm very suspicious for an underlying adenocarcinoma, possibly a small cell lung cancer. The patient was made aware of these findings. Prognosis poor. We'll continue to follow.
[2018-05-14] MEDS ORDERED: VANCOMYCIN 1,000 MG in SODIUM CHLORIDE 0.9% 250 ML IVPB SCH (16:00)
--- NOTE | 2018-05-14 16:11 | P.HPIM ---
History of Present Illness H&P Date: 05/14/18 Chief Complaint: Shortness of breath Patient is a 68-year-old female with a known history of advanced COPD on home oxygen, FEV1 of 37% of predicted, hypertension, hypetthyroidism-on methimazole and multiple admissions with COPD exacerbation came back to the hospital with complaints of shortness of breath worsening for the past 1-2 days. Patient was also having chest tightness, cough and whitish to clear sputum production. Patient denied any complaints of chest pain. No nausea vomiting or abdominal pain. No diarrhea. No dysuria. Denied any recent weight loss. Her appetite is really low. Chest x-ray showed in addition to chronic changes of COPD and chronic interstitial prominence with a new hazy bibasilar opacities that may represent atelectasis of pneumonia in the appropriate clinical setting. In the ED patient was placed on BiPAP machine and is currently weaned off to nausea cannula now. Patient was admitted to MICU for close monitoring. CT angiogram showed negative evidence of pulmonary embolus. Large left hilar mass occluding the left lower lobe bronchus with collapse of the left lower lobe. Contralateral hilar adenopathy as well as subcarinal adenopathy. Severe emphysematous change. Thoracic aortic aneurysm with maximal transverse diameter measuring 4.8 cm. Old granulomatous disease of the spleen. Mild degenerative change within the spine. WBC 33.2 Calcium 10.3 Potassium 3.4 Review of Systems Constitutional: Patient denies any fever or chills . No generalized weakness or weight loss. Abdomen: Patient denied nausea vomiting and diarrhea and abdominal pain. Cardiovascular: Patient denies any chest pain or short of breath no palpitations. Respiratory: Office sputum production and shortness of breath Neurologic: Patient denied any numbness or tingling headache. Musculoskeletal: Patient denies any complaints of joint swelling or deformity. Skin: Negative Psychiatric: Negative Endocrine: No heat or cold intolerance. No recent weight gain. Genitourinary: No dysuria or hematuria. All other 14 point ROS negative except the above Past Medical History Past Medical History: Asthma, COPD, Hypertension, Pneumonia, Thyroid Disorder Additional Past Medical History / Comment(s): recent UTI-now resolved, 2016 resp arrest, on vent here FEB 2017-resp. failure-on vent. in [place] visiting [facility] rehab after, O2 dependent- 3L/NC continuously, pneumonia 2010, acute trachebronchitis, chronic lt shoulder pain, DJD, bowel obstruction , donated R kidney to son, post colonoscopy with. polypectomy bleed and was in ICU, Graves disease, AAA found in June 2012 - has been stable since then History of Any Multi-Drug Resistant Organisms: None Reported Past Surgical History: Cholecystectomy, Hysterectomy, Orthopedic Surgery Additional Past Surgical History / Comment(s): R nephrectomy, 2011 laparotomy with lysis of adhesions from kidney surgery causing bowel obstruction. L shoulder and collar bone surgery, colonoscopy with polypectomy, cataract surg- lens implants. AAA, Past Anesthesia/Blood Transfusion Reactions: No Reported Reaction Additional Past Anesthesia/Blood Transfusion Reaction / Comment(s): Pt has never received blood. Past Psychological History: Depression Additional Psychological History / Comment(s): Pt has an adult son navarro residing with her. Her spouse in October of 2017. no home care services recieved. She has home O2 and a nebulizer that she uses and also hasbsc ,shower chair and walker if needed. She drives. Smoking Status: Former smoker Past Alcohol Use History: None Reported Additional Past Alcohol Use History / Comment(s): Pt started smoking in 1975 and quit smoking in 2012. smoked 1/2 ppd Past Drug Use History: None Reported - Past Family History Father Family Medical History: Cancer Additional Family Medical History / Comment(s): Pancreatic cancer and passed when he was 58 Mother Family Medical History: No Reported History Additional Family Medical History / Comment(s): None Medications and Allergies Home Medications Medication Instructions Recorded Confirmed Type Aspirin EC [Ecotrin Low Dose] 81 mg PO DAILY 10/22/14 05/14/18 History Budesonide [Pulmicort] 1 mg INHALATION RT-BID@1000,1400 10/22/14 05/13/18 History Albuterol Nebulized [Ventolin 2.5 mg INHALATION 03/25/17 05/14/18 History Nebulized] RT-QID@08,12,17,21 Albuterol Sulfate [Proair Hfa] 2 puff INHALATION RT-QID PRN 03/25/17 05/14/18 History Arformoterol Tartrate [Brovana] 15 mcg INHALATION RT-BID@0800,1700 03/25/17 History Calcium Carbonate/Vitamin D3 1 tab PO DAILY@1700 03/25/17 05/14/18 History [Calcium 600-Vit D3 200 Tablet] DULoxetine HCL [Cymbalta] 60 mg PO DAILY@0800 03/25/17 05/14/18 History Metoprolol Succinate [Toprol XL] 25 mg PO DAILY 03/25/17 05/14/18 History amLODIPine [Norvasc] 10 mg PO DAILY 03/25/17 05/14/18 History Hydrocodone/Acetaminophen [Biloxi 1 tab PO Q6H PRN 07/08/17 05/14/18 History 10-325] Methimazole [Tapazole] 5 mg PO DAILY 07/08/17 05/14/18 History Atorvastatin [Lipitor] 10 mg PO HS 09/20/17 05/13/18 History ALPRAZolam [Xanax] 0.5 mg PO DAILY PRN 03/06/18 05/13/18 History DULoxetine HCL [Cymbalta] 30 mg PO DAILY@0800 03/06/18 05/14/18 History Temazepam [Restoril] 15 mg PO HS 03/06/18 05/14/18 History Ondansetron HCl [Zofran] 4 mg PO DAILY 30 Days #30 tablet 03/08/18 05/14/18 Rx Azithromycin [Zithromax] 500 mg PO DAILY #3 tab 03/23/18 05/13/18 Rx Ipratropium-Albuterol Nebulize 3 ml INHALATION QID #120 ampul.neb 03/23/1805/13 Rx [Duoneb 0.5 mg-3 mg/3 ml Soln] Cholecalciferol [Vitamin D3] 1,000 unit PO W/SUPPER 05/14/18 05/14/18 History Ferrous Sulfate [Feosol] 325 mg PO W/SUPPER 05/14/18 05/14/18 History Loperamide [Imodium] 2 mg PO DAILY PRN 05/14/18 05/14/18 History Potassium Chloride ER [K-Dur 10] 10 meq PO W/SUPPER 05/14/18 05/14/18 History Allergies Allergy/AdvReac Type Severity Reaction Status Date / Time Influenza Virus Vaccines Allergy Dyspnea Verified 05/14/18 08:34 hydromorphone [From Dilaudid] AdvReac Hallucinati Verified 05/14/18 08:34 ons Physical Exam Vitals: Vital Signs Temp Pulse Pulse Resp BP BP Pulse Ox 05/14/18 12:12 98.4 F 102 H 22 146/86 95 05/14/18 12:00 102 H 22 05/14/18 11:20 96 05/14/18 11:08 93 05/14/18 11:04 96 19 136/85 97 05/14/18 10:15 97 24 150/90 94 L 05/14/18 09:00 98 21 135/83 97 05/14/18 08:00 98.3 F 90 21 138/81 94 L 05/14/18 07:45 87 05/14/18 07:32 86 05/14/18 07:00 87 18 127/75 96 05/14/18 06:00 89 18 152/91 97 05/14/18 05:00 97 18 147/91 96 05/14/18 04:00 97.3 F L 92 18 147/91 97 05/14/18 03:00 92 19 119/86 96 05/14/18 02:00 95 29 H 119/86 96 05/14/18 01:00 102 H 21 94 L 05/14/18 00:00 98 21 131/78 05/13/18 23:59 98 22 131/78 05/13/18 23:14 99.6 F 119/86 95 05/13/18 23:00 101 H 23 131/78 94 L 05/13/18 22:15 30 H 05/13/18 22:00 123/81 96 05/13/18 21:22 110 H 05/13/18 21:12 121 H 05/13/18 21:05 98.1 F 118 H 30 H 123/81 89 L Intake and Output 05/13/18 05/14/18 05/14/18 22:59 06:59 14:59 Intake Total 625 450 Output Total 625 Balance 625 -175 Intake: IV 375 Sodium Chloride 0.9% 1, 375 000 ml @ 75 mls/hr IV . [id number] [facility] Rx#:[id number] Intake, IV Titration 625 75 Amount Piperacillin-Tazobactam 3 75 .375 gm In Sodium Chloride 0.9% 100 ml @ 25 mls/hr IVPB Q8HR [facility] Rx# :[id number] Sodium Chloride 0.9% 1, 300 75 000 ml @ 75 mls/hr IV . [id number] [facility] Rx#:[id number] Vancomycin 1,000 mg In 250 Sodium Chloride 0.9% 250 ml @ 125 mls/hr IVPB Q24H [facility] Rx#:[id number] Output: Urine 625 Other: Voiding Method Bedside Commode Bedside Commode # Voids 0 2 Weight 55.338 kg 64.6 kg PHYSICAL EXAMINATION: Patient is lying in the bed comfortably, no acute distress, awake alert and oriented.. HEENT: Normocephalic. Neck is supple. Pupils reactive. Nostrils clear. Oral cavity is moist. Ears reveal no drainage. Neck reveals no JVD, carotid bruits, or thyromegaly. CHEST EXAMINATION: Trachea is central. Symmetrical expansion. Diminished bibasilar air entry left greater than right, expiratory wheezing. CARDIAC: Normal S1, S2 with no gallops. No murmurs ABDOMEN: Soft. Bowel sounds normal. No organomegaly. No abdominal bruits. Extremities: reveal no edema. No clubbing or cyanosis Neurologically awake, alert, oriented x3 with well-coordinated movements. No focal deficits noted Skin: No rash or skin lesions. Psychiatric: Coperative. Nonsuicidal, anxious Musculoskeletal: No joint swelling or deformity. Normal range of motion. Results CBC & Chem 7: 05/14/18 02:01 05/14/18 11:19 Labs: Abnormal Lab Results - Last 24 Hours (Table) 05/13/18 05/13/18 05/13/18 Range/Units 21:10 21:16 21:16 WBC 33.2 H (3.8-10.6) k/uL Neutrophils # 30.1 H (1.3-7.7) k/uL Lymphocytes # (1.0-4.8) k/uL Monocytes # 1.4 H (0-1.0) k/uL APTT (22.0-30.0) sec Potassium 3.4 L (3.5-5.1) mmol/L Carbon Dioxide 33 H (22-30) mmol/L BUN 23 H (7-17) mg/dL Glucose 120 H (74-99) mg/dL POC Glucose (mg/dL) (75-99) mg/dL Plasma Lactic Acid Arben 2.3 H* (0.7-2.0) mmol/L Calcium 10.3 H (8.4-10.2) mg/dL Total Protein (6.3-8.2) g/dL Albumin (3.5-5.0) g/dL 05/13/18 05/14/18 05/14/18 Range/Units 21:16 00:28 02:01 WBC 34.1 H (3.8-10.6) k/uL Neutrophils # 32.9 H (1.3-7.7) k/uL Lymphocytes # 0.3 L (1.0-4.8) k/uL Monocytes # (0-1.0) k/uL APTT 18.8 L (22.0-30.0) sec Potassium (3.5-5.1) mmol/L Carbon Dioxide (22-30) mmol/L BUN (7-17) mg/dL Glucose (74-99) mg/dL POC Glucose (mg/dL) 169 H (75-99) mg/dL Plasma Lactic Acid Arben (0.7-2.0) mmol/L Calcium (8.4-10.2) mg/dL Total Protein (6.3-8.2) g/dL Albumin (3.5-5.0) g/dL 05/14/18 Range/Units 02:01 WBC (3.8-10.6) k/uL Neutrophils # (1.3-7.7) k/uL Lymphocytes # (1.0-4.8) k/uL Monocytes # (0-1.0) k/uL APTT (22.0-30.0) sec Potassium (3.5-5.1) mmol/L Carbon Dioxide 32 H (22-30) mmol/L BUN 24 H (7-17) mg/dL Glucose 195 H (74-99) mg/dL POC Glucose (mg/dL) (75-99) mg/dL Plasma Lactic Acid Arben (0.7-2.0) mmol/L Calcium (8.4-10.2) mg/dL Total Protein 5.7 L (6.3-8.2) g/dL Albumin 3.4 L (3.5-5.0) g/dL Thrombosis Risk Factor Assmnt - DVT/VTE Prophylaxis DVT/VTE Prophylaxis: Pharmacologic Prophylaxis ordered - Choose All That Apply Each Factor Represents 1 point: Abnormal pulmonary function (COPD) Each Risk Factor Represents 2 Points: Age 61-74 years Thrombosis Risk Factor Assessment Total Risk Factor Score: 3 Thrombosis Risk Factor Assessment Level: Moderate Risk Assessment and Plan Assessment: Acute on chronic hypoxic respiratory failure secondary to COPD and underlying left hilar mass. Was on BiPAP in the ER. Acute COPD exacerbation/severe COPD with FEV1 of 37% of predicted Left hilar mass with left lower lobe bronchus obstruction/atelectasis and pneumonia. Likely underlying bronchogenic carcinoma. Significant leukocytosis Hypertension Hyperthyroidism/multinodular goiter Thoracic aortic aneurysm 4.8 cm Compression fracture of thoracic spine History of right nephrectomy/donated to her son. Degenerative joint disease History of bowel obstruction History of polypectomy bleed Abdominal aortic aneurysm Previous history of smoking DVT prophylaxis. Heparin subcu Plan: Patient will be continued on breathing treatments/Pulmicort/Perforomist and antibiotics in the form of Zosyn. Patient is currently saturating well on nasal cannula. Patient may need bronchoscopy and biopsy. Pulmonary is on board. Prognosis is poor. Further recommendations based on the clinical course. Time with Patient: Greater than 30
[2018-05-14] MEDS ORDERED: FERROUS SULFATE 325 MG TAB PO SCH (17:30)
[2018-05-14] MEDS: CHOLECALCIFEROL 1,000 UNIT TAB PO SCH (17:32)
[2018-05-14] MEDS: FORMOTEROL FUMARATE 20 MCG/2 ML NEBU INHALATION SCH (19:33)
[2018-05-14] MEDS: BUDESONIDE 1 MG/2 ML NEBU INHALATION SCH (19:33)
[2018-05-14] MEDS: ATORVASTATIN 10 MG TAB PO SCH (22:27)
[2018-05-14] MEDS: ALPRAZolam 0.5 MG TAB PO PRN (23:41)
[2018-05-15] MEDS: PIPERACILLIN-TAZOBACTAM 3.375 GM in SODIUM CHLORIDE 0.9% 100 ML IVPB SCH ×3 (03:25→17:09)
[2018-05-15] MEDS: HEPARIN SODIUM,PORCINE 5,000 UNIT/ML 1 ML VIAL SQ SCH ×3 (03:25→17:08)
[2018-05-15] MEDS: SODIUM CHLORIDE 0.9% 1,000 ML IV SCH ×2 (03:26→17:10)
[2018-05-15 05:59] LABS: HCT 32.9 % (34.0-46.0); HGB 10.7 gm/dL (11.4-16.0); MCH 28.2 pg (25.0-35.0); MCHC 32.6 g/dL (31.0-37.0); MCV 86.6 fL (80.0-100.0); Mean Platelet Volume 6.2; Platelet Count 277 k/uL (150-450); RBC 3.79 m/uL (3.80-5.40); RDW 15.4 % (11.5-15.5); WBC 22.5 k/uL (3.8-10.6)
[2018-05-15 06:10] LABS: ALT 24 U/L (9-52); AST 14 U/L (14-36); Albumin 3.1 g/dL (3.5-5.0); Alkaline Phosphatase 62 U/L (38-126); Anion Gap 4 mmol/L; Blood Urea Nitrogen 21 mg/dL (7-17); Carbon Dioxide 33 mmol/L (22-30); Chloride 103 mmol/L (98-107); Glucose 110 mg/dL (74-99); Magnesium 2.3 mg/dL (1.6-2.3); Phosphorus 2.9 mg/dL (2.5-4.5); Potassium 3.9 mmol/L (3.5-5.1); Sodium 140 mmol/L (137-145); Total Bilirubin 0.5 mg/dL (0.2-1.3); Total Protein 5.5 g/dL (6.3-8.2)
[2018-05-15] MEDS: ALPRAZolam 0.5 MG TAB PO PRN (06:44)
[2018-05-15] MEDS ORDERED: POTASSIUM CHLORIDE ER 20 MEQ TAB.ER PO SCH (07:00)
[2018-05-15] MEDS: BUDESONIDE 1 MG/2 ML NEBU INHALATION SCH ×2 (07:13→18:43)
[2018-05-15] MEDS: FORMOTEROL FUMARATE 20 MCG/2 ML NEBU INHALATION SCH ×2 (07:13→18:43)
[2018-05-15] MEDS: IPRATROPIUM-ALBUTEROL 3 ML NEB INHALATION SCH ×4 (07:13→18:41)
[2018-05-15] MEDS: METOPROLOL SUCCINATE (ER) 25 MG TAB.ER.24H PO SCH (08:15)
[2018-05-15] MEDS: HYDROcodone/APAP 10-325MG 1 EACH TAB PO PRN ×2 (08:15→21:50)
[2018-05-15] MEDS: ONDANSETRON 4 MG TAB PO SCH (08:16)
[2018-05-15] MEDS: ASPIRIN 81 MG PO SCH (08:16)
[2018-05-15] MEDS: METHIMAZOLE 5 MG TAB PO SCH (09:03)
[2018-05-15] MEDS: DULoxetine HCL 60 MG CAPSULE.DR PO SCH (09:03)
[2018-05-15] MEDS: DULoxetine HCL 30 MG CAPSULE.DR PO SCH (09:03)
[2018-05-15] MEDS: ALPRAZolam 0.5 MG TAB PO SCH ×3 (09:11→21:47)
--- NOTE | 2018-05-15 13:03 | P.PN ---
Subjective Progress Note Date: 05/15/18 Principal diagnosis: Acute on chronic hypoxic respiratory failure secondary to COPD exacerbation and left lung mass consistent with bronchogenic carcinoma. This is a 68-year-old female patient who has advanced oxygen-dependent COPD with an FEV1 of 37% of predicted. The patient is very well-known to me. The patient has a maintained on a combination of Brovana, Pulmicort and Spiriva on outpatient basis. She has also required steroids on a long-term basis regarding her COPD. The patient has had multiple admissions to the hospital for recurrent COPD exacerbation. Going back to the records, the patient was hearing the hospital February 2018 and she was in [facility] approximately 2 weeks ago for the same. She was treated and she was discharged home over immediately after the discharge the patient gets short of breath and she comes back for the same complaints of increased shortness of breath and dyspnea chest tightness and wheezing. Note that she has a large multinodular goiter along with symptoms of hyperthyroidism and currently she is on methimazole. No stridor. During this current admission, the patient came in with worsening shortness of breath. In the ED, the patient had a chest x-ray and subsequently she was placed on a BiPAP at a pressure of 12/5 cm of water with an FiO2 of 60%. I saw this morning. I thought she was looking better and I weaned her off to oxygen by nasal cannula at 4 L. She was able to tolerate that. I thought also that there are some atelectatic changes and fullness within the mediastinum. Based on that, I ordered a computed tomography scan of the chest and a resolved remarkably abnormal. The patient's exam was negative for pulmonary embolism. There was however a large left hilar mass occluding the left lower lobe bronchus with collapse of the left lower lobe. There was also contralateral hilar lymphadenopathy as well as subcarinal lymphadenopathy in addition to severe emphysematous changes in the background. There was also a thoracic aortic aneurysm measuring 4.8 cm in size. The goiter was again seen in the upper thoracic inlet area yet there was no significant mass effect on the trachea. Note that the hilar mass was measuring 6 x 7 x 8.9 cm in size and there was occlusion of the left lower lobe bronchus. Patient was reevaluated today on 05/15/2018, seems to be doing better, breathing easier, remains on few liters nasal cannula, in no distress, and I had a chance today to discuss with the patient the different options. She is now very well aware that the mass that she has in the left hilar area compressing on the left mainstem bronchus, and left lower lobe, is malignant unless proven otherwise. I discussed with her today what Dr. Sánchez has told her about potential bronchoscopy, tissue diagnosis, and possibly stent placement sometime this week. Patient understood, and she would like to proceed. She is very well aware that she is risky and may end up requiring intubation and mechanical ventilation. In the meantime the patient is feeling better, and I plan to transfer the patient out of the ICU until stent becomes available and hopefully sometime this week we'll address the issue of bronchoscopy and stenting. CBC showed improvement in her leukocytosis with WBC count of 22.5 hemoglobin of 10.7 basic metabolic profile is relatively normal. Objective - Vital Signs Vital signs: Vital Signs Temp 98.5 F 05/15/18 12:00 Pulse 82 05/15/18 12:24 Resp 14 05/15/18 12:00 BP 140/95 05/15/18 12:00 Pulse Ox 93 L 05/15/18 12:00 Intake & Output 05/14/18 05/15/18 05/15/18 18:59 06:59 18:59 Intake Total 1150 975 475 Output Total 850 3150 250 Balance 300 -2175 225 Weight 65.4 kg Intake: IV 825 375 375 Sodium Chloride 0.9% 1, 825 375 375 000 ml @ 75 mls/hr IV . [id number] [facility] Rx#:[id number] Intake, IV Titration 75 600 100 Amount Piperacillin-Tazobactam 3 100 .375 gm In Sodium Chloride 0.9% 100 ml @ 25 mls/hr IVPB Q8HR [facility] Rx# :[id number] Sodium Chloride 0.9% 1, 75 600 000 ml @ 75 mls/hr IV . [id number] [facility] Rx#:[id number] Oral 250 Output: Urine 850 3150 250 Other: Voiding Method Bedside Commode Bedside Commode Bedside Commode # Voids 1 1 1 - Exam Physical Exam: Revealed a 68-year-old female in no distress. Head: Atraumatic, normocephalic. HEENT:[Neck is supple.] [No neck masses.] [No thyromegaly.] [No JVD.] No icterus. Chest: [Extremely diminished breath sound bilaterally, but more diminished on the left side. No rhonchi no wheezes no crackles, no chest wall tenderness, symmetrical chest expansion is noted. Cardiac Exam: [Normal S1 and S2, no S3 gallop, no murmur.] Abdomen: [Soft, nontender, no megaly, no rebound, no guarding, normal bowel sounds.] Extremities: [No clubbing, no edema, no cyanosis.] Neurological Exam: Alert and oriented 3. [No focal neurologic deficit.] Psychiatric: Normal mood, affect and mental status examination. Skin: No rashes. - Labs CBC & Chem 7: 05/15/18 05:17 05/15/18 05:17 Labs: Abnormal Lab Results - Last 24 Hours (Table) 05/15/18 05/15/18 Range/Units 05:17 05:17 WBC 22.5 H (3.8-10.6) k/uL RBC 3.79 L (3.80-5.40) m/uL Hgb 10.7 L (11.4-16.0) gm/dL Hct 32.9 L (34.0-46.0) % Carbon Dioxide 33 H (22-30) mmol/L BUN 21 H (7-17) mg/dL Glucose 110 H (74-99) mg/dL Total Protein 5.5 L (6.3-8.2) g/dL Albumin 3.1 L (3.5-5.0) g/dL Microbiology - Last 24 Hours (Table) 05/13/18 21:10 Blood Culture - Preliminary Blood No Growth after 24 hours Assessment and Plan Assessment: Impression: 1 acute on chronic hypoxic respiratory failure secondary to COPD exacerbation. 2 large left hilar mass, most likely secondary to small cell lung cancer unless liver otherwise. 3 history of thoracic spine compression fractures. 4 history of nephrectomy 5 thoracic aortic aneurysm 6 benign essential hypertension 8 medical debility secondary to severe underlying COPD and chronic hypoxic respiratory failure 9 chronic insomnia 10 multinodular goiter with hyperthyroidism the 11 generalized anxiety disorder. Recommendation: Continue present treatment plan including bronchodilators, steroids, antibiotics, discussed her condition with her, and I also discussed her condition with Dr. Sánchez who is planning to bronchoscope the patient in the next couple of days and possibly consider a stent placement to open up the left lower lobe. Overall prognosis remains extremely poor and guarded, and patient is very well aware of what is going on. All her questions were answered to her satisfaction today. Time with Patient: Less than 30
[2018-05-15 13:43] LABS: Hemoglobin A1C 5.9 % (4.0-6.0)
[2018-05-15] MEDS: CHOLECALCIFEROL 1,000 UNIT TAB PO SCH (17:10)
[2018-05-15] MEDS ORDERED: ONDANSETRON 4 MG/2 ML VIAL IVP PRN (17:12)
[2018-05-15] MEDS: IOPAMIDOL-300 CONTRAST 30 ML VIAL (ORAL USE) PO PRN ×2 (17:33→18:33)
--- NOTE | 2018-05-15 19:54 | CT ---
EXAMINATION TYPE: CT abdomen pelvis wo/w con DATE OF EXAM: 05/15/2018 COMPARISON: None HISTORY: lung mass CT DLP: 784.2 mGycm Automated exposure control for dose reduction was used. TECHNIQUE: Helical acquisition of images was performed from the lung bases through the pelvis. CONTRAST: Performed with Oral Contrast and with IV Contrast, patient injected with 100 mL of Isovue 300. FINDINGS: There is atelectasis in the left lower lobe. Lower thoracic aorta is atherosclerotic and aneurysmal. Lower thoracic aorta measures 4.4 cm. There is some thrombus on the anterior wall. There are clips from cholecystectomy. Liver shows no focal defect. Spleen appears without evidence of a mass. There is small calcified splenic granuloma. There are a few punctate pancreatic calcificatio ns and could relate to old inflammatory disease. Bile ducts are not dilated. I see no adrenal mass. There are a few cysts in the left kidney that measure up to 1.5 cm. Right kidn ey is absent. Bladder distends smoothly. There is no hydronephrosis. Abdominal aorta is atheromatous. I see no retroperitoneal adenopathy. There is a 4 mm calculus in the lower pole left kidney. There i s some small rounded areas of high attenuation in the lateral aspect of the left kidney that could be cysts that contain calcium. There are a few sigmoid diverticula. There is no evidence of diverticulitis. Bladder distends smoothl y. There is 30% anterior wedging of L1 vertebra that appears old. There is no mesenteric adenopathy. There is no inguinal hernia. I see no intestinal wall thickening. IMPRESSION: ATHEROSCLEROTIC VASCULAR DISEASE. THORACIC AORTIC ANEURYSM. NONOBSTRUCTING LEFT RENAL CALCULUS. Left lower lobe atelectasis. I do not see evidence for definite abdominal or pelvic metastatic disease.
[2018-05-15 20:56] LABS: Glucose,Whole Blood 172 mg/dL (75-99)
[2018-05-15] MEDS: ATORVASTATIN 10 MG TAB PO SCH (21:47)
[2018-05-16] MEDS: HEPARIN SODIUM,PORCINE 5,000 UNIT/ML 1 ML VIAL SQ SCH ×3 (00:20→16:44)
[2018-05-16] MEDS: SODIUM CHLORIDE 0.9% 1,000 ML IV SCH ×2 (06:33→18:06)
[2018-05-16] MEDS: IPRATROPIUM-ALBUTEROL 3 ML NEB INHALATION SCH ×4 (07:37→19:10)
[2018-05-16] MEDS: FORMOTEROL FUMARATE 20 MCG/2 ML NEBU INHALATION SCH ×2 (07:37→19:12)
[2018-05-16 07:41] LABS: Glucose,Whole Blood 92 mg/dL (75-99)
--- NOTE | 2018-05-16 07:43 | PN ---
PROGRESS NOTE DATE OF SERVICE: 05/15/2018 PRESENTING COMPLAINT: Short of breath. INTERVAL HISTORY: The patient is admitted with acute COPD exacerbation. CT scan of the chest found to have lymphadenopathy and left-sided lung mass with near collapse of the left lower lobe. Pulmonary is planning to do a bronchoscopy for tissue diagnosis. The patient has got some short of breath and wheezing, cough, no sputum. Feels tired and run down. REVIEW OF SYSTEMS: Done for constitutional, cardiovascular, GI, pulmonary; relevant findings as above. CURRENT MEDICATIONS: Current medications are reviewed that include DuoNeb, inhaled steroids, IV Zosyn. PHYSICAL EXAMINATION: On examination, temperature 97.7, pulse 91, respiration 22, blood pressure 127/80, pulse ox 94% on 4 L. GENERAL APPEARANCE: Lying in bed, tired appearing. EYES: Pupils equal. Conjunctivae normal. HENT: External appearance of nose and ears normal. Oral cavity normal. NECK: JVD not raised. Mass not palpable. RESPIRATORY: Effort increased. LUNGS: Decreased breath sounds. Prolonged expiration. CARDIOVASCULAR: First and second sounds normal. No edema. ABDOMEN: Soft, nontender. Liver and spleen not palpable. LYMPHATIC: No lymph node palpable of the neck or axillae. PSYCHIATRY: Alert and oriented x3. Mood and affect anxious appearing. INVESTIGATIONS: White count 22.5, hemoglobin 10.7. Potassium 3.9. BUN 21, creatinine 0.77. Chest CTA, left hilar mass occluding the left lower lobe bronchus, collapse of the same contralateral hilar adenopathy, thoracic aortic aneurysm, 4.8 cm. ASSESSMENT: 1. Acute chronic obstructive pulmonary disease exacerbation in an ex-smoker. 2. Left hilar lung mass causing near occlusion of the left lower lobe bronchus with left lower lobe collapse and adenopathy strongly suspicious for malignancy. 3. Chronic hypoxic respiratory failure on 2 L oxygen at home. 4. 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 5. Chronic compression fracture of thoracic vertebra. 6. Anxiety disorder, not otherwise specified. 7. Nontoxic multinodular goiter from hyperthyroidism. Patient on Tapazole. 8. Depression, not otherwise specified. 9. Thoracic aortic aneurysm 4.8 cm, being followed as an outpatient. 10.Chronic insomnia. 11.Chronic hard of hearing. 12.Chronic diverticulosis. 13.Chronic bilateral tinnitus. 14.Hyperlipidemia. 15.Essential hypertension. 16.Acute hypoxic respiratory failure underlying chronic obstructive pulmonary disease exacerbation. PLAN: Patient to continue on current medication and treatment plan. When pulmonary status is optimized, patient will undergo bronchoscopy for a tissue diagnosis. Care was discussed with the patient. Follow with Pulmonary. I do not see any need for IV antibiotics at present time. Will discontinue the same. MMGINAL / SUYAPAN: [id number] /
[2018-05-16] MEDS: BUDESONIDE 1 MG/2 ML NEBU INHALATION SCH ×2 (07:54→19:10)
[2018-05-16] MEDS: DULoxetine HCL 30 MG CAPSULE.DR PO SCH (08:01)
[2018-05-16] MEDS: ASPIRIN 81 MG PO SCH (08:01)
[2018-05-16] MEDS: DULoxetine HCL 60 MG CAPSULE.DR PO SCH (08:01)
[2018-05-16] MEDS: ALPRAZolam 0.5 MG TAB PO SCH ×3 (08:01→21:25)
[2018-05-16] MEDS: METHIMAZOLE 5 MG TAB PO SCH (08:01)
[2018-05-16] MEDS: HYDROcodone/APAP 10-325MG 1 EACH TAB PO PRN ×2 (08:26→21:21)
[2018-05-16] MEDS: ONDANSETRON 4 MG TAB PO SCH (08:26)
[2018-05-16] MEDS: METOPROLOL SUCCINATE (ER) 25 MG TAB.ER.24H PO SCH (08:41)
--- NOTE | 2018-05-16 09:06 | P.CONS ---
History of Present Illness - Reason for Consult Consult date: 05/15/18 New Lung Mass Requesting physician: Kishor Caal - Chief Complaint Shortness of Breath - History of Present Illness Patient is a 68-year-old female with a known history of advanced COPD on home oxygen, hypertension, multiple admissions with COPD exacerbation re-presented to the hospital with complaints of shortness of breath worsening for the past few days. Patient was also having tightness in chest and productive cough. No diarrhea. Denied any recent weight loss. Although decreased appetite. Recent chest x-ray sh a new hazy bibasilar opacities. CTA negative for pulmonary embolus. Large left hilar mass occluding the left lower lobe bronchus with collapse of the left lower lobe. Contralateral hilar adenopathy as well as subcarinal adenopathy. Severe emphysematous change. Therefore, Medical Oncology has been Consulted. Pt seen and examined in ICU today, she is feeling better and appears stable. She understands findings and willing to pursue further diagnostics. Review of Systems A 14 point review assessed and completed and all neg except HPI. Past Medical History Past Medical History: Asthma, COPD, Hypertension, Pneumonia, Thyroid Disorder Additional Past Medical History / Comment(s): recent UTI-now resolved, 2016 resp arrest, on vent here FEB 2017-resp. failure-on vent. 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 polypectomy bleed and was in ICU, Graves disease, AAA found in June 2012 - has been stable since then History of Any Multi-Drug Resistant Organisms: None Reported Past Surgical History: Cholecystectomy, Hysterectomy, Orthopedic Surgery Additional Past Surgical History / Comment(s): R nephrectomy, 2011 laparotomy with lysis of adhesions from kidney surgery causing bowel obstruction. L shoulder and collar bone surgery, colonoscopy with polypectomy, cataract surg- lens implants. AAA, Past Anesthesia/Blood Transfusion Reactions: No Reported Reaction Additional Past Anesthesia/Blood Transfusion Reaction / Comm: Pt has never received blood. Past Psychological History: Depression Additional Psychological History / Comment(s): Pt has an adult son navarro residing with her. Her spouse in October of 2017. no home care services recieved. She has home O2 and a nebulizer that she uses and also hasbsc ,shower chair and walker if needed. She drives. Smoking Status: Former smoker Past Alcohol Use History: None Reported Additional Past Alcohol Use History / Comment(s): Pt started smoking in 1975 and quit smoking in 2012. smoked 1/2 ppd Past Drug Use History: None Reported - Past Family History Father Family Medical History: Cancer Additional Family Medical History / Comment(s): Pancreatic cancer and passed when he was 58 Mother Family Medical History: No Reported History Additional Family Medical History / Comment(s): None Medications and Allergies Home Medications Medication Instructions Recorded Confirmed Type Aspirin EC [Ecotrin Low Dose] 81 mg PO DAILY 10/22/14 05/14/18 History Budesonide [Pulmicort] 1 mg INHALATION RT-BID@1000,1400 10/22/14 05/13/18 History Albuterol Nebulized [Ventolin 2.5 mg INHALATION 03/25/17 05/14/18 History Nebulized] RT-QID@08,12,17,21 Albuterol Sulfate [Proair Hfa] 2 puff INHALATION RT-QID PRN 03/25/17 05/14/18 History Arformoterol Tartrate [Brovana] 15 mcg INHALATION RT-BID@0800,1700 03/25/17 History Calcium Carbonate/Vitamin D3 1 tab PO DAILY@1700 03/25/17 05/14/18 History [Calcium 600-Vit D3 200 Tablet] DULoxetine HCL [Cymbalta] 60 mg PO DAILY@0800 03/25/17 05/14/18 History Metoprolol Succinate [Toprol XL] 25 mg PO DAILY 03/25/17 05/14/18 History amLODIPine [Norvasc] 10 mg PO DAILY 03/25/17 05/14/18 History Hydrocodone/Acetaminophen [Wishram 1 tab PO Q6H PRN 07/08/17 05/14/18 History 10-325] Methimazole [Tapazole] 5 mg PO DAILY 07/08/17 05/14/18 History Atorvastatin [Lipitor] 10 mg PO HS 09/20/17 05/13/18 History ALPRAZolam [Xanax] 0.5 mg PO DAILY PRN 03/06/18 05/13/18 History DULoxetine HCL [Cymbalta] 30 mg PO DAILY@0800 03/06/18 05/14/18 History Temazepam [Restoril] 15 mg PO HS 03/06/18 05/14/18 History Ondansetron HCl [Zofran] 4 mg PO DAILY 30 Days #30 tablet 03/08/18 05/14/18 Rx Azithromycin [Zithromax] 500 mg PO DAILY #3 tab 03/23/18 05/13/18 Rx Ipratropium-Albuterol Nebulize 3 ml INHALATION QID #120 ampul.neb 03/23/1805/13 Rx [Duoneb 0.5 mg-3 mg/3 ml Soln] Cholecalciferol [Vitamin D3] 1,000 unit PO W/SUPPER 05/14/18 05/14/18 History Ferrous Sulfate [Feosol] 325 mg PO W/SUPPER 05/14/18 05/14/18 History Loperamide [Imodium] 2 mg PO DAILY PRN 05/14/18 05/14/18 History Potassium Chloride ER [K-Dur 10] 10 meq PO W/SUPPER 05/14/18 05/14/18 History Allergies Allergy/AdvReac Type Severity Reaction Status Date / Time Influenza Virus Vaccines Allergy Dyspnea Verified 05/14/18 08:34 hydromorphone [From Dilaudid] AdvReac Hallucinati Verified 05/14/18 08:34 ons Physical Exam Vitals: Vital Signs Temp Pulse Pulse Pulse Resp BP BP 05/15/18 16:00 16 05/15/18 15:08 84 05/15/18 14:59 84 05/15/18 14:20 97.7 F 91 18 127/80 05/15/18 12:24 82 05/15/18 12:12 86 05/15/18 12:00 98.5 F 90 14 140/95 05/15/18 11:00 88 12 140/95 05/15/18 10:00 84 13 133/75 05/15/18 09:00 96 16 149/98 05/15/18 08:30 96 05/15/18 08:00 98.6 F 103 H 28 H 148/103 05/15/18 07:36 96 05/15/18 07:24 88 05/15/18 07:14 85 05/15/18 07:00 84 20 153/96 11/19/18 06:00 83 14 131/83 11/19/18 05:00 85 19 129/78 18 04:00 98.0 F 83 16 130/76 18 03:00 83 15 135/77 18 02:00 85 26 H 135/77 18 01:00 87 14 140/78 18 00:00 98.0 F 92 96 13 140/78 18/18 23:00 93 15 140/78 18/18 22:09 99 12 140/78 18/18 22:00 99 24 18/18 21:58 97.7 F 98 17 140/78 05/14/18 20:00 96 26 H 1818 19:55 97 18/18 19:46 96 18/18 19:35 97 18/18 19:00 96 18 122/71 05/14/18 18:00 93 17 130/76 Pulse Ox 05/15/18 16:00 18 15:08 05/15/18 14:59 05/15/18 14:20 94 L 18 12:24 18 12:12 18 12:00 93 L 18 11:00 92 L 18 10:00 91 L 18 09:00 91 L 18 08:30 18 08:00 91 L 18 07:36 18 07:24 18 07:14 18 07:00 96 05/15/18 06:00 97 18 05:00 93 L 18 04:00 93 L 18 03:00 94 L 18 02:00 95 18 01:00 94 L 18 00:00 94 L 18/18 23:00 93 L 18/18 22:09 93 L 18/18 22:00 94 L 18/18 21:58 93 L 18/18 20:00 18/18 19:55 18/18 19:46 18/18 19:35 18/18 19:00 05/14/18 18:00 93 L Intake and Output 05/15/18 05/15/18 05/15/18 06:59 14:59 22:59 Intake Total 675 1150 Output Total 2350 250 Balance -1675 900 Intake: IV 300 450 Sodium Chloride 0.9% 1, 300 450 000 ml @ 75 mls/hr IV . [id number] [facility] Rx#:[id number] Intake, IV Titration 375 100 Amount Piperacillin-Tazobactam 3 100 .375 gm In Sodium Chloride 0.9% 100 ml @ 25 mls/hr IVPB Q8HR [facility] Rx# :[id number] Sodium Chloride 0.9% 1, 375 000 ml @ 75 mls/hr IV . [id number] [facility] Rx#:[id number] Oral 600 Output: Urine 2350 250 Other: Voiding Method Bedside Commode Bedside Commode # Voids 1 1 Weight 65.4 kg - Constitutional General appearance: mild distress, thin - EENT Eyes: EOMI, poor dentition ENT: NA/AT, normal oropharynx - Neck No palpable adenopathy, neck supple, Neck: normal ROM - Respiratory oxygen dependent home Respiratory: bilateral: diminished, wheezing (expiratory, mild inc effort) - Cardiovascular Tachy Rhythm: regular Heart sounds: normal: S1, S2 - Gastrointestinal General gastrointestinal: soft, tenderness - Integumentary Integumentary: pale - Neurologic no focal defects - Musculoskeletal Musculoskeletal: generalized weakness, strength equal bilaterally - Psychiatric Psychiatric: A&O x's 3, appropriate affect, intact judgment & insight Results CBC & Chem 7: 05/15/18 05:17 05/15/18 05:17 Labs: Abnormal Lab Results - Last 24 Hours (Table) 05/15/18 05/15/18 Range/Units 05:17 05:17 WBC 22.5 H (3.8-10.6) k/uL RBC 3.79 L (3.80-5.40) m/uL Hgb 10.7 L (11.4-16.0) gm/dL Hct 32.9 L (34.0-46.0) % Carbon Dioxide 33 H (22-30) mmol/L BUN 21 H (7-17) mg/dL Glucose 110 H (74-99) mg/dL Total Protein 5.5 L (6.3-8.2) g/dL Albumin 3.1 L (3.5-5.0) g/dL Microbiology - Last 24 Hours (Table) 05/13/18 21:10 Blood Culture - Preliminary Blood No Growth after [address] scan - chest: report reviewed Assessment and Plan Plan: Assessment and Recommendations: 1. New Lung Mass 6.9x6.1x8.9 with associated adenopathy: - Concerning for Picture of Primary Lung Cancer - CT abdomen and Pelvis for initial Staging - Planning of Bronch by Pulmonary this week for tissue diagnosis - MRI Brain with Imaging is resonable for initial staging 2. Acute on Chronic Respiratory Failure - Oxygen Dependent at Home for COPD - Recurrent Hospitalizations for COPD Exacerbations
[2018-05-16 10:36] LABS: HCT 35.3 % (34.0-46.0); HGB 11.6 gm/dL (11.4-16.0); Hypochromasia Slight; MCH 28.7 pg (25.0-35.0); MCHC 32.8 g/dL (31.0-37.0); MCV 87.7 fL (80.0-100.0); Mean Platelet Volume 5.9; Platelet Count 324 k/uL (150-450); RBC 4.02 m/uL (3.80-5.40); RDW 15.3 % (11.5-15.5); WBC 13.6 k/uL (3.8-10.6)
[2018-05-16 10:46] LABS: Albumin 3.6 g/dL (3.5-5.0); Calcium 9.9 mg/dL (8.4-10.2); Magnesium 1.9 mg/dL (1.6-2.3); Phosphorus 2.8 mg/dL (2.5-4.5); Potassium 3.5 mmol/L (3.5-5.1); Total Bilirubin 0.5 mg/dL (0.2-1.3); Total Protein 6.1 g/dL (6.3-8.2)
[2018-05-16] MEDS ORDERED: VANCOMYCIN IV PER PHARMACY 1 EACH MISC MISCELLANE PRN (11:17)
[2018-05-16 12:06] LABS: Glucose,Whole Blood 89 mg/dL (75-99)
--- NOTE | 2018-05-16 12:27 | P.PN ---
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 This is a 68-year-old female patient who has advanced oxygen-dependent COPD with an FEV1 of 37% of predicted. The patient is very well-known to me. The patient has a maintained on a combination of Brovana, Pulmicort and Spiriva on outpatient basis. She has also required steroids on a long-term basis regarding her COPD. The patient has had multiple admissions to the hospital for recurrent COPD exacerbation. Going back to the records, the patient was hearing the hospital February 2018 and she was in [facility] approximately 2 weeks ago for the same. She was treated and she was discharged home over immediately after the discharge the patient gets short of breath and she comes back for the same complaints of increased shortness of breath and dyspnea chest tightness and wheezing. Note that she has a large multinodular goiter along with symptoms of hyperthyroidism and currently she is on methimazole. No stridor. During this current admission, the patient came in with worsening shortness of breath. In the ED, the patient had a chest x-ray and subsequently she was placed on a BiPAP at a pressure of 12/5 cm of water with an FiO2 of 60%. I saw this morning. I thought she was looking better and I weaned her off to oxygen by nasal cannula at 4 L. She was able to tolerate that. I thought also that there are some atelectatic changes and fullness within the mediastinum. Based on that, I ordered a computed tomography scan of the chest and a resolved remarkably abnormal. The patient's exam was negative for pulmonary embolism. There was however a large left hilar mass occluding the left lower lobe bronchus with collapse of the left lower lobe. There was also contralateral hilar lymphadenopathy as well as subcarinal lymphadenopathy in addition to severe emphysematous changes in the background. There was also a thoracic aortic aneurysm measuring 4.8 cm in size. The goiter was again seen in the upper thoracic inlet area yet there was no significant mass effect on the trachea. Note that the hilar mass was measuring 6 x 7 x 8.9 cm in size and there was occlusion of the left lower lobe bronchus. Patient was reevaluated today on 05/15/2018, seems to be doing better, breathing easier, remains on few liters nasal cannula, in no distress, and I had a chance today to discuss with the patient the different options. She is now very well aware that the mass that she has in the left hilar area compressing on the left mainstem bronchus, and left lower lobe, is malignant unless proven otherwise. I discussed with her today what Dr. Sánchez has told her about potential bronchoscopy, tissue diagnosis, and possibly stent placement sometime this week. Patient understood, and she would like to proceed. She is very well aware that she is risky and may end up requiring intubation and mechanical ventilation. In the meantime the patient is feeling better, and I plan to transfer the patient out of the ICU until stent becomes available and hopefully sometime this week we'll address the issue of bronchoscopy and stenting. CBC showed improvement in her leukocytosis with WBC count of 22.5 hemoglobin of 10.7 basic metabolic profile is relatively normal. The patient is seen again today 05/16/2018 in follow-up on the regular medical floor. She is awake and alert in no acute distress. She is maintaining good O2 saturations in the 90s on 4 L/m per nasal cannula. She's been afebrile. Hemodynamically stable. She is having some complaints of difficulty in swallowing. Computed tomography scan of the abdomen revealed atherosclerotic vascular disease. Thoracic aortic aneurysm. Nonobstructing left renal calculus. Left lower lobe atelectasis. No evidence of abdominal or pelvic metastatic disease. Blood cultures reveal gram-positive cocci in clusters. Currently on vancomycin. White count 13.6. Hemoglobin 11.6. Creatinine 0.88. She remains on DuoNeb inhalations, Pulmicort and Perforomist inhalations, Objective - Vital Signs Vital signs: Vital Signs Temp 96.9 F L 05/16/18 05:48 Pulse 80 05/16/18 11:18 Resp 20 05/16/18 08:00 BP 142/70 05/16/18 05:48 Pulse Ox 97 05/16/18 05:48 Intake & Output 05/15/18 05/16/18 05/16/18 18:59 06:59 18:59 Intake Total 1150 Output Total 250 0 Balance 900 0 Intake: IV 450 Sodium Chloride 0.9% 1, 450 000 ml @ 75 mls/hr IV . [id number] [facility] Rx#:[id number] Intake, IV Titration 100 Amount Piperacillin-Tazobactam 3 100 .375 gm In Sodium Chloride 0.9% 100 ml @ 25 mls/hr IVPB Q8HR [facility] Rx# :[id number] Oral 600 Output: Urine 250 0 Other: Voiding Method Bedside Commode Bedside Commode # Voids 4 3 - Exam Gen. appearance the patient is in mild degree of shortness of breath even at rest. She is currently on high flow oxygen at 5 L a minute nasal cannula. Head exam was generally normal. There was no scleral icterus or corneal arcus. Mucous membranes were moist. Neck was supple and without jugular venous distension, thyromegaly, or carotid bruits. Carotids were easily palpable bilaterally. There was no adenopathy. Lungs sounds are diminished bilaterally especially in the left lower lobe area and this Extremity wheezes heard throughout the lung. Then prolongation of expiratory phase of breathing. Cardiac exam revealed the PMI to be normally situated and sized. The rhythm was regular and no extrasystoles were noted during several minutes of auscultation. The first and second heart sounds were normal and physiologic splitting of the second heart sound was noted. There were no murmurs, rubs, clicks, or gallops. Abdominal exam revealed normal bowel sounds. The abdomen was soft, non-tender, and without masses, organomegaly, or appreciable enlargement of the abdominal aorta. Examination of the extremities revealed easily palpable radial, femoral and pedal pulses. There was no cyanosis, clubbing or edema. Examination of the skin revealed no evidence of significant rashes, suspicious appearing nevi or other concerning lesions. Neurologically awake and alert there is no focal neurological deficit. Psychiatrically the patient has chronic anxiety and depression. - Labs CBC & Chem 7: 05/16/18 09:25 05/16/18 09:25 Labs: Abnormal Lab Results - Last 24 Hours (Table) 05/15/18 05/16/18 05/16/18 Range/Units 20:55 09:25 09:25 WBC 13.6 H (3.8-10.6) k/uL Carbon Dioxide 36 H (22-30) mmol/L BUN 18 H (7-17) mg/dL POC Glucose (mg/dL) 172 H (75-99) mg/dL Total Protein 6.1 L (6.3-8.2) g/dL Microbiology - Last 24 Hours (Table) 05/13/18 21:10 Blood Culture Gram Stain - Preliminary Blood 05/13/18 21:10 Blood Culture - Final Blood Assessment and Plan Assessment: Assessment 1 acute COPD exacerbation with secondary shortness of breath 2 large left hilar mass measuring 6 x 8 cm in size causing obstruction of the left lower lobe bronchus with limited atelectasis of the left lung base. The patient has extensive mediastinal lymphadenopathy, subcarinal lymphadenopathy, right hilar lymphadenopathy. The presentation is very much suggestive of an underlying bronchogenic carcinoma, consider small cell lung cancer 3 acute on chronic hypoxic respiratory failure secondary to above, currently on 5 L of oxygen nasal cannula, earlier requiring BiPAP 4 bacteremia secondary to gram-positive cocci in clusters. Currently on vancomycin. 5 chronic hypoxic respiratory failure typically on 2 L of oxygen nasal cannula 6 history of compression fracture of the thoracic spine maintained on a combination of calcium and vitamin D 7 history of total nephrectomy and the patient undergone nephrectomy for donation and the renal function is stable for now 8 chronic anxiety 9 degenerative arthritis 10 thoracic aortic aneurysm 11 chronic insomnia 12 previous history of bowel obstruction requiring lysis of adhesion 13 diverticular disease 14 nephrolithiasis 15 hypertension 16 hyperlipidemia 17 multinodular goiter, on methimazole 18 debility secondary to above-mentioned comorbidities Plan The patient was seen and evaluated by Dr. Caal. She is currently stable from the pulmonary standpoint. We'll continue with her current medications. She remains on IV vancomycin. The plan is for possible bronchoscopy with stent placement by Dr. Sánchez tomorrow. Patient is agreeable to the plan. Her overall prognosis remains quite poor however. We will continue to follow make further recommendations based on her clinical status. I, the cosigning physician, performed a history & physical examination of the patient. Lungs sounds with scattered rhonchi, wheezing, diminished. Maintaining good O2 saturations in the 90s on 5 L high flow nasal cannula. I discussed the assessment and plan of care with my nurse practitioner, Sonia Schwab. I attest to the above note as dictated by her.
--- NOTE | 2018-05-16 13:06 | CDI ---
Last Revision, May 2017 Documentation Clarification Form Date: 05/16/18 From: Lidya Ashton RN Admit Date: 05/13/2018 10:52:00 PM Patient Name: Keri Kern Visit Number: [id number] ATTENTION: The Clinical Documentation Specialists (CDI) and [facility] Coding Staff appreciate your assistance in clarifying documentation. Please respond to the clarification below the line at the bottom and electronically sign. The CDI & [facility] Coding staff will review the response and follow-up if needed. Please note: Queries are made part of the Legal Health Record. If you have any questions, please contact the author of this message via ITS. Noe Arellano MD, Pneumonia was documented in the H&P notes on 05/14 under assessment Left hilar mass with left lower lobe bronchus obstruction/atelectasis and pneumonia. Pt. admitted with severe sepsis, copd exacerbation, respiratory distress, and hcap History/Risk Factors: advanced COPD with home oxygen, HTN, hyperthyroidism, pneumonia, chronic insomnia Clinical indicators: WBC on admission: WBC 33.2, K+ 3.4, C02 33, BUN 23, LACTIC 2.3, PHU 10.3 X-ray: chronic changes of COPD and chronic interstitial prominence there are new hazy bibasilar opacities that may represent atelectasis or pneumonia. Lung/Breathing assessment: lungs are diminished bilaterally, wheezes heard throughout the lungs Treatment: Antibiotics: Vancomycin IVPB, Piperacillin IVPB O2 @ 4L Breathing Tx: Duoneb, Pulmicort, perforomist In order to capture the severity of condition, please clarify if the condition signifies and you are treating for: Aspiration Pneumonia, identify if: Due to solids or liquids Bacterial Pneumonia, specify causal organism (if known) Gram Negative Pneumonia Other bacteria (please specify) Viral Pneumonia, specify casual organism (if known) Healthcare Acquired Pneumonia/Pneumonia, unspecified Other, please specify Unable to determine no pneumonia, positive blood cultures MTDD
[2018-05-16] MEDS: VANCOMYCIN 1,250 MG in SODIUM CHLORIDE 0.9% 250 ML IVPB SCH (14:37)
[2018-05-16 17:06] LABS: Glucose,Whole Blood 328 mg/dL (75-99)
[2018-05-16] MEDS: CHOLECALCIFEROL 1,000 UNIT TAB PO SCH (17:08)
[2018-05-16] MEDS: ATORVASTATIN 10 MG TAB PO SCH (21:26)
--- NOTE | 2018-05-16 22:07 | PN ---
PROGRESS NOTE DATE OF SERVICE: 05/16/2018. PRESENTING COMPLAINT: Short of breath. INTERVAL HISTORY: This patient presented with acute COPD exacerbation. No pneumonia. The patient was found to have a left lung mass with near-collapse of the left lower lobe. Breathing is better sitting up. Plan is for bronchoscopy tomorrow. Patient also has positive blood cultures with gram-positive cocci in clusters, for which she is on vancomycin. REVIEW OF SYSTEMS: Done for constitutional, cardiovascular, GI, pulmonary; relevant findings as above. CURRENT MEDICATIONS: Reviewed. They include IV vancomycin. IV Zosyn was discontinued. No evidence of pneumonia. PHYSICAL EXAMINATION: Afebrile. Pulse 87, respiration 17, blood pressure 121/81, pulse ox 96% on 4 L. GENERAL APPEARANCE: Sitting at the edge of the bed, tired. EYES: Pupils equal. Conjunctivae normal. HEENT: External appearance of nose and ears normal. Oral cavity normal. NECK: JVD not raised. Mass not palpable. RESPIRATORY: Effort increased. LUNGS: Decreased breath sounds. Prolonged expiration. CARDIOVASCULAR: First and second sounds normal. No edema. ABDOMEN: Soft, non-tender. Liver and spleen not palpable. PSYCHIATRY: Alert and oriented x3. Mood and affect slightly low-appearing. INVESTIGATIONS: White count 13.6, hemoglobin 11.6. Accu-Cheks are noted. ASSESSMENT: 1. Acute chronic obstructive pulmonary disease exacerbation in an ex-smoker. 2. No pneumonia. 3. Positive blood cultures showing gram-positive cocci in clusters. 4. Left hilar lung mass causing near-occlusion of left lower lobe bronchus with left lower lobe collapse strongly suspicious for malignancy. 5. Chronic hypoxic respiratory failure, on 2 L oxygen at home. 6. 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 7. Chronic compression fracture of thoracic vertebra. 8. Anxiety disorder not otherwise specified. 9. Nontoxic multinodular goiter from hyperthyroidism. Patient on Tapazole. 10.Depression not otherwise specified. 11.Thoracic aortic aneurysm 4.8 cm, being followed as an outpatient. 12.Chronic insomnia. 13.Chronic hard of hearing. 14.Chronic diverticulosis. 15.Chronic bilateral tinnitus. 16.Hyperlipidemia. 17.Essential hypertension. 18.Chronic hypoxic respiratory failure from underlying chronic obstructive pulmonary disease. PLAN: Care was discussed with the patient. Patient remains on IV vancomycin. Patient is for bronchoscopy tomorrow. The vancomycin is for positive blood cultures. MMODL / IJN: [id number] /
[2018-05-17] MEDS: HEPARIN SODIUM,PORCINE 5,000 UNIT/ML 1 ML VIAL SQ SCH ×3 (02:03→15:53)
[2018-05-17] MEDS: BUDESONIDE 1 MG/2 ML NEBU INHALATION SCH ×3 (03:20→19:44)
[2018-05-17] MEDS: VANCOMYCIN 1,250 MG in SODIUM CHLORIDE 0.9% 250 ML IVPB SCH (06:11)
[2018-05-17] MEDS: FORMOTEROL FUMARATE 20 MCG/2 ML NEBU INHALATION SCH ×2 (07:54→19:44)
[2018-05-17] MEDS: IPRATROPIUM-ALBUTEROL 3 ML NEB INHALATION SCH ×4 (07:54→19:44)
[2018-05-17] MEDS: ASPIRIN 81 MG PO SCH (08:04)
[2018-05-17] MEDS: DULoxetine HCL 30 MG CAPSULE.DR PO SCH (08:09)
[2018-05-17] MEDS: ALPRAZolam 0.5 MG TAB PO SCH ×3 (08:09→22:27)
[2018-05-17] MEDS: SODIUM CHLORIDE 0.9% 1,000 ML IV SCH ×2 (08:09→20:41)
[2018-05-17] MEDS: DULoxetine HCL 60 MG CAPSULE.DR PO SCH (08:09)
[2018-05-17] MEDS: ONDANSETRON 4 MG TAB PO SCH (08:09)
[2018-05-17] MEDS: METHIMAZOLE 5 MG TAB PO SCH (08:09)
[2018-05-17] MEDS: METOPROLOL SUCCINATE (ER) 25 MG TAB.ER.24H PO SCH (08:09)
[2018-05-17] MEDS: HYDROcodone/APAP 10-325MG 1 EACH TAB PO PRN ×2 (08:13→21:25)
[2018-05-17 10:11] LABS: Glucose,Whole Blood 89 mg/dL (75-99)
[2018-05-17 10:40] LABS: HCT 35.6 % (34.0-46.0); HGB 11.3 gm/dL (11.4-16.0); Hypochromasia Slight; MCH 28.1 pg (25.0-35.0); MCHC 31.8 g/dL (31.0-37.0); MCV 88.4 fL (80.0-100.0); Platelet Count 288 k/uL (150-450); RBC 4.03 m/uL (3.80-5.40); RDW 15.4 % (11.5-15.5); WBC 10.8 k/uL (3.8-10.6)
[2018-05-17 11:03] LABS: ALT 27 U/L (9-52); AST 16 U/L (14-36); Albumin 3.4 g/dL (3.5-5.0); Alkaline Phosphatase 67 U/L (38-126); Anion Gap 4 mmol/L; Blood Urea Nitrogen 15 mg/dL (7-17); Calcium 9.8 mg/dL (8.4-10.2); Carbon Dioxide 37 mmol/L (22-30); Chloride 101 mmol/L (98-107); Glucose 84 mg/dL (74-99); Magnesium 1.8 mg/dL (1.6-2.3); Potassium 3.5 mmol/L (3.5-5.1); Sodium 142 mmol/L (137-145); Total Bilirubin 0.6 mg/dL (0.2-1.3); Total Protein 5.9 g/dL (6.3-8.2)
--- NOTE | 2018-05-17 11:03 | P.PN ---
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 This is a 68-year-old female patient who has advanced oxygen-dependent COPD with an FEV1 of 37% of predicted. The patient is very well-known to me. The patient has a maintained on a combination of Brovana, Pulmicort and Spiriva on outpatient basis. She has also required steroids on a long-term basis regarding her COPD. The patient has had multiple admissions to the hospital for recurrent COPD exacerbation. Going back to the records, the patient was hearing the hospital February 2018 and she was in [facility] approximately 2 weeks ago for the same. She was treated and she was discharged home over immediately after the discharge the patient gets short of breath and she comes back for the same complaints of increased shortness of breath and dyspnea chest tightness and wheezing. Note that she has a large multinodular goiter along with symptoms of hyperthyroidism and currently she is on methimazole. No stridor. During this current admission, the patient came in with worsening shortness of breath. In the ED, the patient had a chest x-ray and subsequently she was placed on a BiPAP at a pressure of 12/5 cm of water with an FiO2 of 60%. I saw this morning. I thought she was looking better and I weaned her off to oxygen by nasal cannula at 4 L. She was able to tolerate that. I thought also that there are some atelectatic changes and fullness within the mediastinum. Based on that, I ordered a computed tomography scan of the chest and a resolved remarkably abnormal. The patient's exam was negative for pulmonary embolism. There was however a large left hilar mass occluding the left lower lobe bronchus with collapse of the left lower lobe. There was also contralateral hilar lymphadenopathy as well as subcarinal lymphadenopathy in addition to severe emphysematous changes in the background. There was also a thoracic aortic aneurysm measuring 4.8 cm in size. The goiter was again seen in the upper thoracic inlet area yet there was no significant mass effect on the trachea. Note that the hilar mass was measuring 6 x 7 x 8.9 cm in size and there was occlusion of the left lower lobe bronchus. Patient was reevaluated today on 05/15/2018, seems to be doing better, breathing easier, remains on few liters nasal cannula, in no distress, and I had a chance today to discuss with the patient the different options. She is now very well aware that the mass that she has in the left hilar area compressing on the left mainstem bronchus, and left lower lobe, is malignant unless proven otherwise. I discussed with her today what Dr. Sánchez has told her about potential bronchoscopy, tissue diagnosis, and possibly stent placement sometime this week. Patient understood, and she would like to proceed. She is very well aware that she is risky and may end up requiring intubation and mechanical ventilation. In the meantime the patient is feeling better, and I plan to transfer the patient out of the ICU until stent becomes available and hopefully sometime this week we'll address the issue of bronchoscopy and stenting. CBC showed improvement in her leukocytosis with WBC count of 22.5 hemoglobin of 10.7 basic metabolic profile is relatively normal. The patient is seen again today 05/16/2018 in follow-up on the regular medical floor. She is awake and alert in no acute distress. She is maintaining good O2 saturations in the 90s on 4 L/m per nasal cannula. She's been afebrile. Hemodynamically stable. She is having some complaints of difficulty in swallowing. Computed tomography scan of the abdomen revealed atherosclerotic vascular disease. Thoracic aortic aneurysm. Nonobstructing left renal calculus. Left lower lobe atelectasis. No evidence of abdominal or pelvic metastatic disease. Blood cultures reveal gram-positive cocci in clusters. Currently on vancomycin. White count 13.6. Hemoglobin 11.6. Creatinine 0.88. She remains on DuoNeb inhalations, Pulmicort and Perforomist inhalations. Patient is seen again today 05/17/2018 in follow-up on the regular medical floor. She is currently sitting up at the bedside. She is awake and alert in no acute distress. She continues to maintain good O2 saturations in the 90s on 4 L/m per nasal cannula. White count 10.8. Hemoglobin 11.3. The plan is for bronchoscopy with biopsy and possible stent placement today. Objective - Vital Signs Vital signs: Vital Signs Temp 98.4 F 05/17/18 06:17 Pulse 88 05/17/18 08:21 Resp 20 05/17/18 06:17 BP 144/95 05/17/18 06:17 Pulse Ox 97 05/17/18 06:17 Intake & Output 05/16/18 05/17/18 05/17/18 18:59 06:59 18:59 Output Total 0 Balance 0 Output: Urine 0 Other: Voiding Method Bedside Commode # Voids 4 2 # Bowel Movements 0 0 - Exam Gen. appearance the patient is in mild degree of shortness of breath even at rest. She is currently on high flow oxygen at 4 L a minute nasal cannula. Head exam was generally normal. There was no scleral icterus or corneal arcus. Mucous membranes were moist. Neck was supple and without jugular venous distension, thyromegaly, or carotid bruits. Carotids were easily palpable bilaterally. There was no adenopathy. Lungs sounds are diminished bilaterally especially in the left lower lobe area and expiratory wheezes heard throughout the lung. Then prolongation of expiratory phase of breathing. Cardiac exam revealed the PMI to be normally situated and sized. The rhythm was regular and no extrasystoles were noted during several minutes of auscultation. The first and second heart sounds were normal and physiologic splitting of the second heart sound was noted. There were no murmurs, rubs, clicks, or gallops. Abdominal exam revealed normal bowel sounds. The abdomen was soft, non-tender, and without masses, organomegaly, or appreciable enlargement of the abdominal aorta. Examination of the extremities revealed easily palpable radial, femoral and pedal pulses. There was no cyanosis, clubbing or edema. Examination of the skin revealed no evidence of significant rashes, suspicious appearing nevi or other concerning lesions. Neurologically awake and alert there is no focal neurological deficit. Psychiatrically the patient has chronic anxiety and depression. - Labs CBC & Chem 7: 05/17/18 09:52 05/16/18 09:25 Labs: Abnormal Lab Results - Last 24 Hours (Table) 05/16/18 05/16/18 05/17/18 Range/Units 09:25 17:04 09:52 WBC 13.6 H 10.8 H (3.8-10.6) k/uL Hgb 11.3 L (11.4-16.0) gm/dL POC Glucose (mg/dL) 328 H (75-99) mg/dL Microbiology - Last 24 Hours (Table) 05/13/18 21:10 Blood Culture Gram Stain - Preliminary Blood 11/17/18 21:10 Blood Culture - Final Blood Assessment and Plan Assessment: Assessment 1 acute COPD exacerbation with secondary shortness of breath 2 large left hilar mass measuring 6 x 8 cm in size causing obstruction of the left lower lobe bronchus with limited atelectasis of the left lung base. The patient has extensive mediastinal lymphadenopathy, subcarinal lymphadenopathy, right hilar lymphadenopathy. The presentation is very much suggestive of an underlying bronchogenic carcinoma, consider small cell lung cancer 3 acute on chronic hypoxic respiratory failure secondary to above, currently on 5 L of oxygen nasal cannula, earlier requiring BiPAP 4 bacteremia secondary to gram-positive cocci in clusters. Currently on vancomycin. 5 chronic hypoxic respiratory failure typically on 2 L of oxygen nasal cannula 6 history of compression fracture of the thoracic spine maintained on a combination of calcium and vitamin D 7 history of total nephrectomy and the patient undergone nephrectomy for donation and the renal function is stable for now 8 chronic anxiety 9 degenerative arthritis 10 thoracic aortic aneurysm 11 chronic insomnia 12 previous history of bowel obstruction requiring lysis of adhesion 13 diverticular disease 14 nephrolithiasis 15 hypertension 16 hyperlipidemia 17 multinodular goiter, on methimazole 18 debility secondary to above-mentioned comorbidities Plan The patient was seen and evaluated by Dr. Caal. We'll continue with her current medications. The plan is for bronchoscopy and biopsies and possible stent placement by Dr. Sánchez today. Patient is agreeable to the plan. Her son is present at the bedside. We did have a lengthy discussion regarding potential complications including her requiring intubation mechanical ventilatory support. She is agreeable but does state quite adamantly that she does not want any long-term life support. Due to her advanced chronic obstructive pulmonary disease and the high suspicion for bronchogenic carcinoma her overall prognosis remains quite poor. We will continue to follow make further recommendations based on her clinical status. I, the cosigning physician, performed a history & physical examination of the patient. Lungs sounds with scattered rhonchi, wheezing, diminished. Maintaining good O2 saturations in the 90s on 4 L high flow nasal cannula. I discussed the assessment and plan of care with my nurse practitioner, Sonia Schwab. I attest to the above note as dictated by her.
[2018-05-17] MEDS ORDERED: IV FLUID CONTINUATION 1,000 ML IV ONE (12:28)
[2018-05-17] MEDS ORDERED: PROPOFOL 10 MG/ML 20 ML VIAL IV ONE (12:47)
[2018-05-17] MEDS ORDERED: NEOSTIGMINE 1 MG/ML 10 ML VIAL ONE (12:47)
[2018-05-17] MEDS ORDERED: fentaNYL (PF) 50 MCG/ML 2 ML AMP ONE (12:47)
[2018-05-17] MEDS ORDERED: GLYCOPYRROLATE 0.2 MG/ML 2 ML VIAL ONE (12:47)
[2018-05-17] MEDS ORDERED: LIDOCAINE 1% INJ 10MG/ML (20 ML MDV) ONE (12:47)
[2018-05-17] MEDS ORDERED: SUCCINYLCHOLINE CHLORIDE 100 MG/5 ML SYR IV ONE (12:47)
[2018-05-17] MEDS ORDERED: DEXAMETHASONE SOD PHOSPHATE 10 MG/ML 1 ML VIAL IV ONE (14:30)
[2018-05-17] MEDS ORDERED: fentaNYL (PF) 50 MCG/ML 2 ML AMP IV PRN (14:30)
[2018-05-17] MEDS ORDERED: ONDANSETRON 4 MG/2 ML VIAL IVP ONE (14:30)
--- NOTE | 2018-05-17 15:21 | FL ---
Fluoroscopy INDICATION: Pain FINDINGS: Fluoroscopy time: 1.04 minutes Images obtained: 1. IMPRESSIONS: 1. Documentation of fluoroscopy.
--- NOTE | 2018-05-17 15:25 | XR ---
EXAMINATION TYPE: XR chest 1V portable DATE OF EXAM: 05/17/2018 COMPARISON: 05/14/2018 INDICATION: Post bronchoscopy with stent placement TECHNIQUE: Single frontal view of the chest is obtained. FINDINGS: The heart size is mildly prominent. The pulmonary vasculature is normal. Some streak opacities in the right lower lobe. Correlate for atelectasis. Some mild changes at both l eft diaphragm. Atelectasis and pneumonia may be present. No pneumothorax is evident. There is a plate and screws over a open reduction internal fixation clavicular repair. IMPRESSION: 1. No pneumothorax post bronchoscopy. 2. Bibasilar infiltrates most likely atelectasis. 3. Mild cardiomegaly
[2018-05-17] MEDS: LACTATED RINGERS 1,000 ML IV SCH (15:43)
--- NOTE | 2018-05-17 17:24 | P.PCN ---
Date of Procedure: 05/17/18 Preoperative Diagnosis: mediastinal mass Postoperative Diagnosis: 1. significant extrinsic compression of the left mainstem bronchus 2. endobronchial tumor in the distal left mainstem bronchus Procedure(s) Performed: 1 Flexible bronchoscopy. 2 Transbronchial needle biopsy of a mediastinal mass 3 Insertion of an endobronchial Ultraflex Metallic covered stent ([id number]) in the left mainstem bronchus. Anesthesia: RAYMUNDO Surgeon: Piedad Sánchez Testing And Regulating Chief #1: Kishor Caal Testing And Regulating Chief #2: Sonia Schwab Estimated Blood Loss (ml): 0 Pathology: other Condition: stable Disposition: floor Operative Findings: This procedure was done in the operating room. The the patient has advanced COPD. The patient is typically on oxygen 3 L per minute nasal cannula. The patient also has a large mediastinal mass causing significant extrinsic compression and possible invasion of the distal left mainstem bronchus. The patient also has some limited atelectatic change in the left lung base. The procedure including the potential complication was explained to the patient at length. A timeout was obtained. Following that, the patient was brought into the operating room and she was induced and intubated by #8 orotracheal tube. Following that, the flexible bronchoscope was inserted through orotracheal tube and an airway inspection was done. Distal trachea, right mainstem bronchus, right upper lobe bronchus regular lobe bronchus and right lower lobe bronchus was patent and within normal limits. Left mainstem bronchus orifice was patent. Immediately after the takeoff, there was progressive narrowing of the left mainstem bronchus and just before its bifurcation, the lumen of the left mainstem bronchus went down to probably 1-2 mm. Distally, there was endobronchial irregularity and possibly some growths circumferential in the distal left mainstem bronchus. The orifice for the left upper lobe bronchus was also involved. The bronchoscope at this point was moved to the distal trachea and using a 21-gauge cytology a 19-gauge histology needle, transbronchial needle aspirate of the left hilar mass was done through the left lateral wall of the distal trachea. A total of 4 passes were taken in the adequacy of the samples was confirmed by pathology at the bedside. Following that, using fluoroscopic guidance, the left mainstem bronchus was measured and marked externally and the involved segment was approximately 40 minutes in length. A guidewire was passed easily into the left main stem bronchus to the left lower lobe. Following that, the bronchoscope was removed and under fluoroscopic guidance and Ultraflex covered metallic stent (12x 40mm) was inserted into the left mainstem bronchus extending to the left lower lobe bronchus, and the stent was deployed without any complications. Inspection of the airway following that appointment showed that the stent was in a good location with adequate patency proximally and distally. Bronchoscope was removed and following that the patient was extubated and she was transferred to recovery in stable condition. Chest x-ray showed no complications.
[2018-05-17] MEDS: CHOLECALCIFEROL 1,000 UNIT TAB PO SCH (17:30)
--- NOTE | 2018-05-17 19:50 | PN ---
PROGRESS NOTE DATE OF SERVICE: 05/17/2018 PRESENTING COMPLAINT: Short of breath. INTERVAL HISTORY: This patient presented with acute COPD exacerbation. No pneumonia. Also positive blood cultures, for which she is on vancomycin. I saw this patient this morning. Patient also has a left lung mass with near-collapse. She is going down for bronchoscopy. Some wheezing is present. Family is present. REVIEW OF SYSTEMS: Done for constitutional, cardiovascular, GI, pulmonary; relevant findings as above. CURRENT MEDICATIONS: Reviewed. They include vancomycin. PHYSICAL EXAMINATION: Temperature 98.2, pulse 84, respiration 22, blood pressure 123/80, pulse ox 91%. GENERAL APPEARANCE: Sitting up. Comfortable. EYES: Pupils equal. Conjunctivae normal. HEENT: External appearance of nose and ears normal. Oral cavity normal. NECK: JVD not raised. Mass not palpable. RESPIRATORY: Effort increased. LUNGS: Decreased breath sounds. Prolonged expiration and wheezing. CARDIOVASCULAR: First and second sounds normal. No edema. ABDOMEN: Soft, non-tender. Liver and spleen not palpable. PSYCHIATRY: Alert and oriented x3. Mood and affect slightly anxious-appearing. INVESTIGATIONS: White count 10.8, hemoglobin 11.3. ASSESSMENT: 1. Acute chronic obstructive pulmonary disease exacerbation in an ex-smoker. 2. No pneumonia. 3. Positive blood cultures growing micrococcus. 4. Left hilar lung mass causing near-occlusion of the left lower lobe bronchus and left lobe collapse. 5. Chronic hypoxic respiratory failure, on 2 L oxygen at home. 6. 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 7. Chronic compression fracture of thoracic vertebra. 8. Anxiety disorder not otherwise specified. 9. Nontoxic multinodular goiter from hyperthyroidism. Patient on Tapazole. 10.Depression not otherwise specified. 11.Thoracic aortic aneurysm 4.8 cm, being followed as an outpatient. 12.Chronic insomnia. 13.Chronic hard of hearing. 14.Chronic diverticulosis. 15.Chronic bilateral tinnitus. 16.Hyperlipidemia. 17.Essential hypertension. 18.Chronic hypoxic respiratory failure from underlying chronic obstructive pulmonary disease. PLAN: I saw the patient prior to her going for the procedure. Continue current medication and treatment plan. Patient's blood culture is growing micrococcus, which is really a skin organism. Given that the patient has had no fever and is otherwise doing fine, we will discontinue the vancomycin, too. I spoke to Dr. Caal after the procedure. The left lower lobe was collapsed. He did get a stent in there. A biopsy was taken. We are going to go ahead and consult both Oncology and Radiation Oncology to see how the patient will be managed. At this point prognosis is guarded. MMODL / IJN: [id number] /
[2018-05-17] MEDS: ATORVASTATIN 10 MG TAB PO SCH (20:41)
[2018-05-18] MEDS: HEPARIN SODIUM,PORCINE 5,000 UNIT/ML 1 ML VIAL SQ SCH ×4 (00:30→23:47)
[2018-05-18] MEDS: HYDROcodone/APAP 10-325MG 1 EACH TAB PO PRN ×2 (07:23→16:22)
[2018-05-18 08:56] LABS: HGB 11.2 gm/dL (11.4-16.0); MCH 28.2 pg (25.0-35.0); MCHC 31.9 g/dL (31.0-37.0); MCV 88.2 fL (80.0-100.0); Mean Platelet Volume 6.6; Platelet Count 256 k/uL (150-450); RBC 3.96 m/uL (3.80-5.40); RDW 15.1 % (11.5-15.5); WBC 11.1 k/uL (3.8-10.6)
[2018-05-18] MEDS: FORMOTEROL FUMARATE 20 MCG/2 ML NEBU INHALATION SCH ×2 (09:13→20:20)
[2018-05-18] MEDS: IPRATROPIUM-ALBUTEROL 3 ML NEB INHALATION SCH ×4 (09:13→20:20)
[2018-05-18] MEDS: BUDESONIDE 1 MG/2 ML NEBU INHALATION SCH ×2 (09:13→20:20)
[2018-05-18 09:22] LABS: Albumin 3.2 g/dL (3.5-5.0); Calcium 9.6 mg/dL (8.4-10.2); Magnesium 1.8 mg/dL (1.6-2.3); Phosphorus 3.3 mg/dL (2.5-4.5); Potassium 3.5 mmol/L (3.5-5.1); Total Bilirubin 0.6 mg/dL (0.2-1.3); Total Protein 5.6 g/dL (6.3-8.2)
[2018-05-18] MEDS: DULoxetine HCL 60 MG CAPSULE.DR PO SCH (10:01)
[2018-05-18] MEDS: METOPROLOL SUCCINATE (ER) 25 MG TAB.ER.24H PO SCH (10:01)
[2018-05-18] MEDS: ALPRAZolam 0.5 MG TAB PO SCH ×3 (10:01→21:21)
[2018-05-18] MEDS: ASPIRIN 81 MG PO SCH (10:02)
[2018-05-18] MEDS: METHIMAZOLE 5 MG TAB PO SCH (10:02)
[2018-05-18] MEDS: DULoxetine HCL 30 MG CAPSULE.DR PO SCH (10:02)
[2018-05-18] MEDS: ONDANSETRON 4 MG TAB PO SCH (10:03)
[2018-05-18] MEDS: LACTATED RINGERS 1,000 ML IV SCH (10:06)
--- NOTE | 2018-05-18 11:24 | P.PN ---
Subjective Progress Note Date: 05/18/18 The patient is on oxygen, and continues to have shortness of breath with exertion fairly easily, though she overall feels improved. She she did cough up some blood last night. No history of fevers or chills, nausea or vomiting. Objective - Vital Signs Vital signs: Vital Signs Temp 98.4 F 05/18/18 07:21 Pulse 95 05/18/18 09:36 Resp 17 05/18/18 07:24 BP 139/81 05/18/18 07:21 Pulse Ox 95 05/18/18 09:13 Intake & Output 05/17/18 05/18/18 05/18/18 18:59 06:59 18:59 Intake Total 525 Output Total 200 Balance 325 Intake: IV 525 Output: Urine 200 Other: Voiding Method Bedside Commode Bedside Commode # Voids 2 - Constitutional General appearance: Present: no acute distress - EENT Eyes: Present: EOMI ENT: Present: hearing grossly normal, normal oropharynx - Respiratory Respiratory: left: diminished, bilateral: wheezing - Cardiovascular Rhythm: regular Heart sounds: normal: S1, S2 - Gastrointestinal General gastrointestinal: Present: normal bowel sounds, soft - Integumentary Integumentary: Present: normal - Neurologic Neurologic: Present: CNII-XII intact - Musculoskeletal Musculoskeletal: Present: generalized weakness, strength equal bilaterally - Psychiatric Psychiatric: Present: A&O x's 3, appropriate affect - Labs CBC & Chem 7: 05/18/18 07:06 05/18/18 07:06 Labs: Abnormal Lab Results - Last 24 Hours (Table) 05/18/18 05/18/18 Range/Units 07:06 07:06 WBC 11.1 H (3.8-10.6) k/uL Hgb 11.2 L (11.4-16.0) gm/dL Carbon Dioxide 38 H (22-30) mmol/L Total Protein 5.6 L (6.3-8.2) g/dL Albumin 3.2 L (3.5-5.0) g/dL Microbiology - Last 24 Hours (Table) 05/13/18 21:10 Blood Culture Gram Stain - Final Blood Blood Culture - Final Micrococcus species Assessment and Plan (1) Mass of left lung Narrative/Plan: Patient had bronchoscopy with biopsy yesterday. The case was discussed in detail with the primary service, and CT scans reviewed with them. There is definite progressive narrowing of the left lower lobe bronchus, and concern for possible total obstruction in the near future. Pathology is pending at this time. Given the rapid development of this mass, an aggressive process such as small cell cancer, or lymphoma suspected, the other etiologies are not ruled out. - Due to concern for progressive obstruction, especially in the setting of her already compromised lung function, it is felt that the patient would likely benefit from starting treatment as soon as possible once diagnosis is finalized. If the pathology shows lymphoma or small cell, she is likely to have a rapid response to systemic chemotherapy. This was discussed with her. - Staging studies so far with CT of the abdomen and pelvis as well as CT of the chest have not shown any obvious metastatic disease. Complete staging with MRI of the brain, and bone scan. - The patient has no obvious metastatic disease on these studies, then she can be treated with systemic chemotherapy, with radiation added concurrently subsequently, if the diagnoses does test and turn up technician to be small cell. Current Visit: Yes Status: Acute Code(s): R91.8 - OTHER NONSPECIFIC ABNORMAL FINDING OF LUNG FIELD SNOMED Code(s): 581696430 (2) Acute exacerbation of chronic obstructive airways disease Narrative/Plan: The patient is slowly improving. Defer to the admitting service and pulmonary medicine for ongoing management Current Visit: No Status: Acute Code(s): J44.1 - CHRONIC OBSTRUCTIVE PULMONARY DISEASE W (ACUTE) EXACERBATION SNOMED Code(s): 926139863
--- NOTE | 2018-05-18 12:04 | P.PN ---
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 This is a 68-year-old female patient who has advanced oxygen-dependent COPD with an FEV1 of 37% of predicted. The patient is very well-known to me. The patient has a maintained on a combination of Brovana, Pulmicort and Spiriva on outpatient basis. She has also required steroids on a long-term basis regarding her COPD. The patient has had multiple admissions to the hospital for recurrent COPD exacerbation. Going back to the records, the patient was hearing the hospital February 2018 and she was in [facility] approximately 2 weeks ago for the same. She was treated and she was discharged home over immediately after the discharge the patient gets short of breath and she comes back for the same complaints of increased shortness of breath and dyspnea chest tightness and wheezing. Note that she has a large multinodular goiter along with symptoms of hyperthyroidism and currently she is on methimazole. No stridor. During this current admission, the patient came in with worsening shortness of breath. In the ED, the patient had a chest x-ray and subsequently she was placed on a BiPAP at a pressure of 12/5 cm of water with an FiO2 of 60%. I saw this morning. I thought she was looking better and I weaned her off to oxygen by nasal cannula at 4 L. She was able to tolerate that. I thought also that there are some atelectatic changes and fullness within the mediastinum. Based on that, I ordered a computed tomography scan of the chest and a resolved remarkably abnormal. The patient's exam was negative for pulmonary embolism. There was however a large left hilar mass occluding the left lower lobe bronchus with collapse of the left lower lobe. There was also contralateral hilar lymphadenopathy as well as subcarinal lymphadenopathy in addition to severe emphysematous changes in the background. There was also a thoracic aortic aneurysm measuring 4.8 cm in size. The goiter was again seen in the upper thoracic inlet area yet there was no significant mass effect on the trachea. Note that the hilar mass was measuring 6 x 7 x 8.9 cm in size and there was occlusion of the left lower lobe bronchus. Patient was reevaluated today on 05/15/2018, seems to be doing better, breathing easier, remains on few liters nasal cannula, in no distress, and I had a chance today to discuss with the patient the different options. She is now very well aware that the mass that she has in the left hilar area compressing on the left mainstem bronchus, and left lower lobe, is malignant unless proven otherwise. I discussed with her today what Dr. Sánchez has told her about potential bronchoscopy, tissue diagnosis, and possibly stent placement sometime this week. Patient understood, and she would like to proceed. She is very well aware that she is risky and may end up requiring intubation and mechanical ventilation. In the meantime the patient is feeling better, and I plan to transfer the patient out of the ICU until stent becomes available and hopefully sometime this week we'll address the issue of bronchoscopy and stenting. CBC showed improvement in her leukocytosis with WBC count of 22.5 hemoglobin of 10.7 basic metabolic profile is relatively normal. The patient is seen again today 05/16/2018 in follow-up on the regular medical floor. She is awake and alert in no acute distress. She is maintaining good O2 saturations in the 90s on 4 L/m per nasal cannula. She's been afebrile. Hemodynamically stable. She is having some complaints of difficulty in swallowing. Computed tomography scan of the abdomen revealed atherosclerotic vascular disease. Thoracic aortic aneurysm. Nonobstructing left renal calculus. Left lower lobe atelectasis. No evidence of abdominal or pelvic metastatic disease. Blood cultures reveal gram-positive cocci in clusters. Currently on vancomycin. White count 13.6. Hemoglobin 11.6. Creatinine 0.88. She remains on DuoNeb inhalations, Pulmicort and Perforomist inhalations. Patient is seen again today 05/17/2018 in follow-up on the regular medical floor. She is currently sitting up at the bedside. She is awake and alert in no acute distress. She continues to maintain good O2 saturations in the 90s on 4 L/m per nasal cannula. White count 10.8. Hemoglobin 11.3. The plan is for bronchoscopy with biopsy and possible stent placement today. The patient was seen again today 05/18/2018 in follow-up on the regular medical floor. She remains awake and alert in no acute distress. She states she is breathing a little better today as compared to yesterday however she did have some issues last night with loose productive cough and a small amount of hemoptysis. She did undergo bronchoscopy with transbronchial fine-needle aspirate of the mediastinal mass along with stent placement in the left mainstem bronchus. She tolerated the procedure well. Pathology is pending. Small cell lung cancer versus lymphoma are suspected. The plan is to complete her staging with an MRI of the brain and bone scan. She is currently maintaining good O2 saturations in the 90s on 4 L/m per nasal cannula. Objective - Vital Signs Vital signs: Vital Signs Temp 98.4 F 05/18/18 07:21 Pulse 95 05/18/18 09:36 Resp 17 05/18/18 07:24 BP 139/81 05/18/18 07:21 Pulse Ox 95 05/18/18 09:13 Intake & Output 05/17/18 05/18/18 05/18/18 18:59 06:59 18:59 Intake Total 525 Output Total 200 Balance 325 Intake: IV 525 Output: Urine 200 Other: Voiding Method Bedside Commode Bedside Commode # Voids 2 1 - Exam Gen. appearance the patient is in mild degree of shortness of breath even at rest. She is currently on high flow oxygen at 4 L per minute nasal cannula. Head exam was generally normal. There was no scleral icterus or corneal arcus. Mucous membranes were moist. Neck was supple and without jugular venous distension, thyromegaly, or carotid bruits. Carotids were easily palpable bilaterally. There was no adenopathy. Lungs sounds are diminished bilaterally especially in the left lower lobe area and expiratory wheezes heard throughout the lung. Then prolongation of expiratory phase of breathing. Cardiac exam revealed the PMI to be normally situated and sized. The rhythm was regular and no extrasystoles were noted during several minutes of auscultation. The first and second heart sounds were normal and physiologic splitting of the second heart sound was noted. There were no murmurs, rubs, clicks, or gallops. Abdominal exam revealed normal bowel sounds. The abdomen was soft, non-tender, and without masses, organomegaly, or appreciable enlargement of the abdominal aorta. Examination of the extremities revealed easily palpable radial, femoral and pedal pulses. There was no cyanosis, clubbing or edema. Examination of the skin revealed no evidence of significant rashes, suspicious appearing nevi or other concerning lesions. Neurologically awake and alert there is no focal neurological deficit. Psychiatrically the patient has chronic anxiety and depression. - Labs CBC & Chem 7: 05/18/18 07:06 05/18/18 07:06 Labs: Abnormal Lab Results - Last 24 Hours (Table) 05/18/18 05/18/18 Range/Units 07:06 07:06 WBC 11.1 H (3.8-10.6) k/uL Hgb 11.2 L (11.4-16.0) gm/dL Carbon Dioxide 38 H (22-30) mmol/L Total Protein 5.6 L (6.3-8.2) g/dL Albumin 3.2 L (3.5-5.0) g/dL Microbiology - Last 24 Hours (Table) 05/13/18 21:10 Blood Culture Gram Stain - Final Blood Blood Culture - Final Micrococcus species Assessment and Plan Assessment: Assessment 1 acute COPD exacerbation with secondary shortness of breath 2 large left hilar mass measuring 6 x 8 cm in size causing obstruction of the left lower lobe bronchus with limited atelectasis of the left lung base. The patient has extensive mediastinal lymphadenopathy, subcarinal lymphadenopathy, right hilar lymphadenopathy. The presentation is very much suggestive of an underlying bronchogenic carcinoma, consider small cell lung cancer versus lymphoma. On 05/17/2018 the patient did undergo bronchoscopy with transbronchial fine-needle aspirate of the mediastinal mass and stent placement to the left mainstem bronchi. 3 acute on chronic hypoxic respiratory failure secondary to above, currently on 5 L of oxygen nasal cannula, earlier requiring BiPAP 4 bacteremia secondary to gram-positive cocci in clusters. Currently on vancomycin. 5 chronic hypoxic respiratory failure typically on 2 L of oxygen nasal cannula 6 history of compression fracture of the thoracic spine maintained on a combination of calcium and vitamin D 7 history of total nephrectomy and the patient undergone nephrectomy for donation and the renal function is stable for now 8 chronic anxiety 9 degenerative arthritis 10 thoracic aortic aneurysm 11 chronic insomnia 12 previous history of bowel obstruction requiring lysis of adhesion 13 diverticular disease 14 nephrolithiasis 15 hypertension 16 hyperlipidemia 17 multinodular goiter, on methimazole 18 debility secondary to above-mentioned comorbidities Plan The patient was seen and evaluated by Dr. Caal. We'll continue with her current medications. Oncology is on the case and planning an MRI of the brain and a bone scan to complete the workup for possible metastasis. Final pathology of the mediastinal mass is pending. We will continue to follow and make further recommendations based on her clinical status. I, the cosigning physician, performed a history & physical examination of the patient. Lungs sounds with scattered rhonchi, wheezing, diminished. Maintaining good O2 saturations in the 90s on 4 L high flow nasal cannula. I discussed the assessment and plan of care with my nurse practitioner, Sonia Schwab. I attest to the above note as dictated by her.
[2018-05-18] MEDS: CHOLECALCIFEROL 1,000 UNIT TAB PO SCH (16:30)
--- NOTE | 2018-05-18 16:40 | P.PN ---
Subjective on-call hospitalist covering Dr. Ellis over the holiday and weekend this is a pleasant 68 years old female with past medical history of asthma/COPD , hypertension, hypothyroidism, chronic hypoxic respiratory failure on 3 L oxygen via nasal cannula. Patient has been evaluated by pulmonary team and found acute COPD exacerbation and left lung mass contributing to bronchial obstruction. With extensive mediastinal lymphadenopathy. Patient status post bronchoscopy and biopsy yesterday. Patient today was lying in bed with no significant dyspnea. Denies chest pain. No abdominal pain. No fever.vitals stable.mild leukocytosis at 11.1. Blood culture is positive for micrococcus from 05/13/2018. We will repeat blood culture.chest x-ray from yesterday shows atelectasis and no pneumothorax after the bronchoscopy. She is status post steroids yesterday. Objective - Vital Signs Vital signs: Vital Signs Temp 98.4 F 05/18/18 07:21 Pulse 94 05/18/18 13:37 Resp 17 05/18/18 15:57 BP 139/81 05/18/18 07:21 Pulse Ox 95 05/18/18 09:13 Intake & Output 05/17/18 05/18/18 05/18/18 18:59 06:59 18:59 Intake Total 525 Output Total 200 Balance 325 Intake: IV 525 Output: Urine 200 Other: Voiding Method Bedside Commode Bedside Commode # Voids 2 1 - Exam GENERAL: The patient is alert and oriented x3, not in any acute distress. Well developed, well nourished. HEENT: Pupils are round and equally reacting to light. EOMI. No scleral icterus. No conjunctival pallor. Normocephalic, atraumatic. No pharyngeal erythema. No thyromegaly. CARDIOVASCULAR: S1 and S2 present. No murmurs, rubs, or gallops. PULMONARY: Chest is clear to auscultation, no wheezing or crackles. ABDOMEN: Soft, nontender, nondistended, normoactive bowel sounds. No palpable organomegaly. MUSCULOSKELETAL: No joint swelling or deformity. EXTREMITIES: No cyanosis, clubbing, or pedal edema. NEUROLOGICAL: Gross neurological examination did not reveal any focal deficits. SKIN: No rashes. - Labs CBC & Chem 7: 05/18/18 07:06 05/18/18 07:06 Labs: Abnormal Lab Results - Last 24 Hours (Table) 05/18/18 05/18/18 Range/Units 07:06 07:06 WBC 11.1 H (3.8-10.6) k/uL Hgb 11.2 L (11.4-16.0) gm/dL Carbon Dioxide 38 H (22-30) mmol/L Total Protein 5.6 L (6.3-8.2) g/dL Albumin 3.2 L (3.5-5.0) g/dL Microbiology - Last 24 Hours (Table) 05/13/18 21:10 Blood Culture Gram Stain - Final Blood Blood Culture - Final Micrococcus species Assessment and Plan Assessment: acute COPD exacerbation Left lung mass status post bronchoscopy and biopsy Acute hypoxemic respiratory failure, patient has history of chronic respiratory failure on home oxygen Micrococcus bacteremia. vancomycin was stopped 2 days ago. mild leukocytosis, mostly reactive secondary to steroid effect Plan: this is a pleasant 68 years old female presents with acute COPD exacerbation and lung mass. Patient is found up by the pulmonary team. Pathology result for her lung biopsy is still pending Labs and medication were reviewed.. oncology team has been consulted.Continue same treatment. Continue with symptomatic treatment. Resume home medication. Monitor lytes and vitals. DVT and GI prophylaxis. Further recommendations of the clinical course of the patient DVT prophylaxis: Subcutaneous heparin Prognosis is guarded
[2018-05-18] MEDS: ATORVASTATIN 10 MG TAB PO SCH (21:21)
[2018-05-19] MEDS: HYDROcodone/APAP 10-325MG 1 EACH TAB PO PRN ×2 (06:26→20:35)
[2018-05-19] MEDS: FORMOTEROL FUMARATE 20 MCG/2 ML NEBU INHALATION SCH ×2 (07:11→21:28)
[2018-05-19] MEDS: IPRATROPIUM-ALBUTEROL 3 ML NEB INHALATION SCH ×4 (07:11→21:29)
[2018-05-19] MEDS: BUDESONIDE 1 MG/2 ML NEBU INHALATION SCH ×2 (07:11→21:28)
[2018-05-19 08:38] LABS: Calcium 9.5 mg/dL (8.4-10.2); Potassium 3.2 mmol/L (3.5-5.1)
[2018-05-19] MEDS: ALPRAZolam 0.5 MG TAB PO SCH ×3 (09:35→22:15)
[2018-05-19] MEDS: DULoxetine HCL 60 MG CAPSULE.DR PO SCH (09:35)
[2018-05-19] MEDS: DULoxetine HCL 30 MG CAPSULE.DR PO SCH (09:35)
[2018-05-19] MEDS: METOPROLOL SUCCINATE (ER) 25 MG TAB.ER.24H PO SCH (09:35)
[2018-05-19] MEDS: ONDANSETRON 4 MG TAB PO SCH (09:35)
[2018-05-19] MEDS: ASPIRIN 81 MG PO SCH (09:35)
[2018-05-19] MEDS: HEPARIN SODIUM,PORCINE 5,000 UNIT/ML 1 ML VIAL SQ SCH ×2 (09:35→16:23)
[2018-05-19] MEDS: METHIMAZOLE 5 MG TAB PO SCH (09:36)
--- NOTE | 2018-05-19 10:50 | XR ---
EXAMINATION TYPE: XR chest 2V DATE OF EXAM: 05/19/2018 COMPARISON: 05/14/2018 and 05/17/2018 HISTORY: Bronchial stent placement TECHNIQUE: Frontal and lateral views of the chest are obtained. FINDINGS: A new left bronchial stent is best seen on the lateral view. Left perihilar mass is redemon strated. Bibasilar subsegmental atelectasis appear similar to the prior exam. Underlying pulmonary hy perinflation and emphysematous changes are seen. There is no pulmonary vascular congestion, pleural e ffusion, or pneumothorax seen. The cardiac silhouette size is within normal limits. The osseous st ructures are intact. Surgical fixation of a prior left clavicular fracture is noted. IMPRESSION: Similar appearance of the left perihilar mass and degree of bibasilar atelectasis with u nderlying pulmonary emphysema. Interval placement of a left bronchial stent with no pneumothorax appr eciated.
--- NOTE | 2018-05-19 11:38 | NM ---
EXAMINATION TYPE: NM bone scan whole body DATE OF EXAM: 05/19/2018 COMPARISON: CTs dated 05/14/2018 05/15/2018. HISTORY: Lung mass Delayed whole-body scanning was performed following the injection of 24.6 mCi Tc 99m MDP. Images acq uired 3 hours post injection. FINDINGS: There is no suspicious radiotracer uptake. Symmetric uptake of the sacroiliac joints, chromic clavicu lar joints, glenohumeral joints, sternoclavicular joints, hips, knees, ankles, elbows, and wrists are likely on the basis of degenerative change as well as mild uptake in the thoracic spine. Left renal uptake is physiologic with surgical absence of the right kidney. Intercostal radiotracer focus on the left changes positions and relates the patient's known left hilar mass. IMPRESSION: No findings suspicious for osseous metastasis. Degenerative changes of the axial and appendicular ske leton are seen as well as right-sided nephrectomy.
--- NOTE | 2018-05-19 13:02 | P.PN ---
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 The patient is very well-known to me. The patient has a maintained on a combination of Brovana, Pulmicort and Spiriva on outpatient basis. She has also required steroids on a long-term basis regarding her COPD. The patient has had multiple admissions to the hospital for recurrent COPD exacerbation. Going back to the records, the patient was hearing the hospital February 2018 and she was in [facility] approximately 2 weeks ago for the same. She was treated and she was discharged home over immediately after the discharge the patient gets short of breath and she comes back for the same complaints of increased shortness of breath and dyspnea chest tightness and wheezing. Note that she has a large multinodular goiter along with symptoms of hyperthyroidism and currently she is on methimazole. No stridor. During this current admission, the patient came in with worsening shortness of breath. In the ED, the patient had a chest x-ray and subsequently she was placed on a BiPAP at a pressure of 12/5 cm of water with an FiO2 of 60%. I saw this morning. I thought she was looking better and I weaned her off to oxygen by nasal cannula at 4 L. She was able to tolerate that. I thought also that there are some atelectatic changes and fullness within the mediastinum. Based on that, I ordered a computed tomography scan of the chest and a resolved remarkably abnormal. The patient's exam was negative for pulmonary embolism. There was however a large left hilar mass occluding the left lower lobe bronchus with collapse of the left lower lobe. There was also contralateral hilar lymphadenopathy as well as subcarinal lymphadenopathy in addition to severe emphysematous changes in the background. There was also a thoracic aortic aneurysm measuring 4.8 cm in size. The goiter was again seen in the upper thoracic inlet area yet there was no significant mass effect on the trachea. Note that the hilar mass was measuring 6 x 7 x 8.9 cm in size and there was occlusion of the left lower lobe bronchus. Patient was reevaluated today on 05/15/2018, seems to be doing better, breathing easier, remains on few liters nasal cannula, in no distress, and I had a chance today to discuss with the patient the different options. She is now very well aware that the mass that she has in the left hilar area compressing on the left mainstem bronchus, and left lower lobe, is malignant unless proven otherwise. I discussed with her today what Dr. Sánchez has told her about potential bronchoscopy, tissue diagnosis, and possibly stent placement sometime this week. Patient understood, and she would like to proceed. She is very well aware that she is risky and may end up requiring intubation and mechanical ventilation. In the meantime the patient is feeling better, and I plan to transfer the patient out of the ICU until stent becomes available and hopefully sometime this week we'll address the issue of bronchoscopy and stenting. CBC showed improvement in her leukocytosis with WBC count of 22.5 hemoglobin of 10.7 basic metabolic profile is relatively normal. The patient is seen again today 05/16/2018 in follow-up on the regular medical floor. She is awake and alert in no acute distress. She is maintaining good O2 saturations in the 90s on 4 L/m per nasal cannula. She's been afebrile. Hemodynamically stable. She is having some complaints of difficulty in swallowing. Computed tomography scan of the abdomen revealed atherosclerotic vascular disease. Thoracic aortic aneurysm. Nonobstructing left renal calculus. Left lower lobe atelectasis. No evidence of abdominal or pelvic metastatic disease. Blood cultures reveal gram-positive cocci in clusters. Currently on vancomycin. White count 13.6. Hemoglobin 11.6. Creatinine 0.88. She remains on DuoNeb inhalations, Pulmicort and Perforomist inhalations. Patient is seen again today 05/17/2018 in follow-up on the regular medical floor. She is currently sitting up at the bedside. She is awake and alert in no acute distress. She continues to maintain good O2 saturations in the 90s on 4 L/m per nasal cannula. White count 10.8. Hemoglobin 11.3. The plan is for bronchoscopy with biopsy and possible stent placement today. The patient was seen again today 05/18/2018 in follow-up on the regular medical floor. She remains awake and alert in no acute distress. She states she is breathing a little better today as compared to yesterday however she did have some issues last night with loose productive cough and a small amount of hemoptysis. She did undergo bronchoscopy with transbronchial fine-needle aspirate of the mediastinal mass along with stent placement in the left mainstem bronchus. She tolerated the procedure well. Pathology is pending. Small cell lung cancer versus lymphoma are suspected. The plan is to complete her staging with an MRI of the brain and bone scan. She is currently maintaining good O2 saturations in the 90s on 4 L/m per nasal cannula. On 05/19/2018 patient seen in follow-up on medical surgical floor. She is a congested on today's exam. She is coughing, and bringing up some brown colored sputum, old blood in the sputum. Remains on 4 L per nasal cannula, her pulse ox of 95%, she is afebrile, hemodynamically stable, today's chest x-ray has been reviewed by Dr. Russo, shows stable appearance of the left perihilar mass , and degree of bibasilar atelectasis with underlying pulmonary emphysema, the endobronchial stent on the left with no pneumothorax. He is generally weak, lung sounds are positive for diffuse rhonchi throughout, there is audible rhonchi, and some limited wheezes. Needle biopsy results are still pending at this time. Today's labs have been reviewed, BNP was done only, sodium is 140, potassium is 3.2, chloride is 100, CO2 34, B1 is 18 and creatinine 0.87. We'll continue with current medical treatment. Objective - Vital Signs Vital signs: Vital Signs Temp 97.5 F L 05/19/18 08:36 Pulse 85 05/19/18 12:45 Resp 14 05/19/18 12:45 BP 128/83 05/19/18 08:36 Pulse Ox 95 05/19/18 08:36 Intake & Output 05/18/18 05/19/18 05/19/18 18:59 06:59 18:59 Intake Total 140 Balance 140 Intake: Oral 140 Other: Voiding Method Bedside Commode Bedside Commode # Voids 1 2 - Exam Gen. appearance the patient is in mild degree of shortness of breath even at rest. She is currently on high flow oxygen at 4 L per minute nasal cannula. Head exam was generally normal. There was no scleral icterus or corneal arcus. Mucous membranes were moist. Neck was supple and without jugular venous distension, thyromegaly, or carotid bruits. Carotids were easily palpable bilaterally. There was no adenopathy. Lungs sounds are positive for diffuse rhonchi, audible rhonchi, some limited wheezes Cardiac exam revealed the PMI to be normally situated and sized. The rhythm was regular and no extrasystoles were noted during several minutes of auscultation. The first and second heart sounds were normal and physiologic splitting of the second heart sound was noted. There were no murmurs, rubs, clicks, or gallops. Abdominal exam revealed normal bowel sounds. The abdomen was soft, non-tender, and without masses, organomegaly, or appreciable enlargement of the abdominal aorta. Examination of the extremities revealed easily palpable radial, femoral and pedal pulses. There was no cyanosis, clubbing or edema. Examination of the skin revealed no evidence of significant rashes, suspicious appearing nevi or other concerning lesions. Neurologically awake and alert there is no focal neurological deficit. Psychiatrically the patient has chronic anxiety and depression. - Labs CBC & Chem 7: 05/18/18 07:06 05/19/18 07:21 Labs: Abnormal Lab Results - Last 24 Hours (Table) 05/19/18 Range/Units 07:21 Potassium 3.2 L (3.5-5.1) mmol/L Carbon Dioxide 34 H (22-30) mmol/L BUN 18 H (7-17) mg/dL Assessment and Plan Plan: 1 acute COPD exacerbation with secondary shortness of breath 2 large left hilar mass measuring 6 x 8 cm in size causing obstruction of the left lower lobe bronchus with limited atelectasis of the left lung base. The patient has extensive mediastinal lymphadenopathy, subcarinal lymphadenopathy, right hilar lymphadenopathy. The presentation is very much suggestive of an underlying bronchogenic carcinoma, consider small cell lung cancer versus lymphoma. On 05/17/2018 the patient did undergo bronchoscopy with transbronchial fine-needle aspirate of the mediastinal mass and stent placement to the left mainstem bronchi. 3 acute on chronic hypoxic respiratory failure secondary to above, currently on 5 L of oxygen nasal cannula, earlier requiring BiPAP 4 bacteremia secondary to gram-positive cocci in clusters. Currently on vancomycin. 5 chronic hypoxic respiratory failure typically on 2 L of oxygen nasal cannula 6 history of compression fracture of the thoracic spine maintained on a combination of calcium and vitamin D 7 history of total nephrectomy and the patient undergone nephrectomy for donation and the renal function is stable for now 8 chronic anxiety 9 degenerative arthritis 10 thoracic aortic aneurysm 11 chronic insomnia 12 previous history of bowel obstruction requiring lysis of adhesion 13 diverticular disease 14 nephrolithiasis 15 hypertension 16 hyperlipidemia 17 multinodular goiter, on methimazole 18 debility secondary to above-mentioned comorbidities Plan: Continue current medical treatment, continue nebulized bronchodilators, Pulmicort and Perforomist, needle biopsy results are pending at this time, patient remains quite congested on today's exam, is having some cough with production of brownish colored sputum. Possible discharge in next 24 hours if patient remains stable. I performed a history & physical examination of the patient and discussed their management with my nurse practitioner, Cher Allen. I reviewed the nurse practitioner's note and agree with the documented findings and plan of care. Lung sounds are positive for diffuse rhonchi. The findings and the impression was discussed with the patient. I attest to the documentation by the nurse practitioner. Time with Patient: Less than 30
[2018-05-19 15:47] VITALS: BMI 25.5
[2018-05-19] MEDS: LACTATED RINGERS 1,000 ML IV SCH (16:14)
[2018-05-19] MEDS: CHOLECALCIFEROL 1,000 UNIT TAB PO SCH (16:24)
[2018-05-19] MEDS ORDERED: Potassium Replacement Protocol 1 EACH MISC MISCELLANE PRN (16:27)
--- NOTE | 2018-05-19 16:57 | P.PN ---
Subjective on-call hospitalist covering Dr. Ellis over the holiday and weekend this is a pleasant 68 years old female with past medical history of asthma/COPD , hypertension, hypothyroidism, chronic hypoxic respiratory failure on 3 L oxygen via nasal cannula. Patient has been evaluated by pulmonary team and found acute COPD exacerbation and left lung mass contributing to bronchial obstruction. With extensive mediastinal lymphadenopathy. Patient status post bronchoscopy and biopsy yesterday. Patient today was lying in bed with no significant dyspnea. Denies chest pain. No abdominal pain. No fever.vitals stable.mild leukocytosis at 11.1. Blood culture is positive for micrococcus from 05/13/2018. We will repeat blood culture.chest x-ray from yesterday shows atelectasis and no pneumothorax after the bronchoscopy. She is status post steroids yesterday. 05/19/2018 Was sitting on the site of bed comfortable. With little dyspnea but no chest pain. No more hemoptysis. She will however she has some coughing and grayish phlegm. Oncologist recommended MRI of the brain and towards and for staging. However she has a stent for her bronchoscopy. Discussed with the bedside nurse to hold it for now. Vital stable. Sodium 140. Potassium 3.2 Objective - Vital Signs Vital signs: Vital Signs Temp 98 F 05/19/18 14:03 Pulse 93 05/19/18 14:03 Resp 16 05/19/18 14:03 BP 128/83 05/19/18 14:03 Pulse Ox 95 05/19/18 14:03 Intake & Output 05/18/18 05/19/18 05/19/18 18:59 06:59 18:59 Intake Total 140 Balance 140 Weight 65.4 kg Intake: Oral 140 Other: Voiding Method Bedside Commode Bedside Commode # Voids 1 2 - Exam GENERAL: The patient is alert and oriented x3, not in any acute distress. Well developed, well nourished. HEENT: Pupils are round and equally reacting to light. EOMI. No scleral icterus. No conjunctival pallor. Normocephalic, atraumatic. No pharyngeal erythema. No thyromegaly. CARDIOVASCULAR: S1 and S2 present. No murmurs, rubs, or gallops. PULMONARY: Chest is clear to auscultation, no wheezing or crackles. ABDOMEN: Soft, nontender, nondistended, normoactive bowel sounds. No palpable organomegaly. MUSCULOSKELETAL: No joint swelling or deformity. EXTREMITIES: No cyanosis, clubbing, or pedal edema. NEUROLOGICAL: Gross neurological examination did not reveal any focal deficits. SKIN: No rashes. - Labs CBC & Chem 7: 05/18/18 07:06 05/19/18 07:21 Labs: Abnormal Lab Results - Last 24 Hours (Table) 05/19/18 Range/Units 07:21 Potassium 3.2 L (3.5-5.1) mmol/L Carbon Dioxide 34 H (22-30) mmol/L BUN 18 H (7-17) mg/dL Assessment and Plan Assessment: acute COPD exacerbation Left lung mass status post bronchoscopy and biopsy Acute hypoxemic respiratory failure, patient has history of chronic respiratory failure on home oxygen Micrococcus bacteremia. vancomycin was stopped 2 days ago. mild leukocytosis, mostly reactive secondary to steroid effect Plan: this is a pleasant 68 years old female presents with acute COPD exacerbation and lung mass. Patient is found up by the pulmonary team. Pathology result for her lung biopsy is still pending Labs and medication were reviewed.. oncology team has been consulted.Continue same treatment. Continue with symptomatic treatment. Resume home medication. Monitor lytes and vitals. DVT and GI prophylaxis. Further recommendations of the clinical course of the patient DVT prophylaxis: Subcutaneous heparin Prognosis is guarded
[2018-05-19] MEDS: POTASSIUM CHLORIDE ER 20 MEQ TAB.ER PO SCH (16:58)
[2018-05-19] MEDS: ATORVASTATIN 10 MG TAB PO SCH (20:28)
[2018-05-20] MEDS: HEPARIN SODIUM,PORCINE 5,000 UNIT/ML 1 ML VIAL SQ SCH ×3 (01:47→16:31)
[2018-05-20] MEDS: IPRATROPIUM-ALBUTEROL 3 ML NEB INHALATION SCH ×4 (08:36→21:32)
[2018-05-20] MEDS: FORMOTEROL FUMARATE 20 MCG/2 ML NEBU INHALATION SCH ×2 (08:38→21:32)
[2018-05-20] MEDS: BUDESONIDE 1 MG/2 ML NEBU INHALATION SCH ×2 (08:38→21:32)
[2018-05-20] MEDS: ONDANSETRON 4 MG TAB PO SCH (09:19)
[2018-05-20] MEDS: ASPIRIN 81 MG PO SCH (09:19)
[2018-05-20 09:20] LABS: Calcium 10.1 mg/dL (8.4-10.2)
[2018-05-20] MEDS: DULoxetine HCL 60 MG CAPSULE.DR PO SCH (09:20)
[2018-05-20] MEDS: DULoxetine HCL 30 MG CAPSULE.DR PO SCH (09:20)
[2018-05-20] MEDS: ALPRAZolam 0.5 MG TAB PO SCH ×3 (09:20→22:45)
[2018-05-20] MEDS: METOPROLOL SUCCINATE (ER) 25 MG TAB.ER.24H PO SCH (09:21)
[2018-05-20] MEDS: METHIMAZOLE 5 MG TAB PO SCH (09:21)
[2018-05-20] MEDS: HYDROcodone/APAP 10-325MG 1 EACH TAB PO PRN ×2 (09:30→15:03)
[2018-05-20 09:55] LABS: Potassium 4.4 mmol/L (3.5-5.1)
--- NOTE | 2018-05-20 11:21 | MR ---
EXAMINATION TYPE: MR brain wo/w con DATE OF EXAM: 05/20/2018 COMPARISON: NONE HISTORY: Lung mass, rule out metastatic disease TECHNIQUE: Multiplanar, multisequence images of the brain and brainstem is performed without and with IV contras t, utilizing 6.5 mL intravenous Gadavist . FINDINGS: Diffusion weighted images demonstrate no evidence of a recent infarct or other diffusion ab normality. There is no worrisome extra-axial fluid collection. There is diffuse ventricular and sulc al prominence consistent with diffuse cerebral atrophy. There are scattered foci of T2 hyperintensity seen throughout the superficial, deep, and periventricular white matter. Lesions are nonspecific in appearance and distribution but most likely on basis of product of chronic small vessel ischemic flanagan ge in patient of this age. Midline structures demonstrate normal morphology. The craniocervical junction appears within normal limits. Post contrast images demonstrate no abnormal enhancement. The dural venous sinuses appear pa tent. The globes are intact bilaterally. There is 2.1 cm mucous retention cyst or polyp in the community relations advisor ior inferior right maxillary sinus and smaller mucous retention cyst or polyp in the anterior inferio r left maxillary sinus otherwise paranasal sinuses are clear. IMPRESSION: 1. There is background mild diffuse cerebral atrophy and moderate chronic small vessel ischemic kang e. 2. No suspicious enhancing intraparenchymal masses are identified to suggest metastatic malignancy.
--- NOTE | 2018-05-20 12:36 | P.PN ---
Subjective Progress Note Date: 05/20/18 The patient continues to be short of breath on exertion and continues on oxygen. She states that she has a cough with brownish expectoration which she thinks may be old blood. She overall feels better, and was inquiring about going home. No history of fever or chills. Objective - Vital Signs Vital signs: Vital Signs Temp 97.8 F 05/20/18 09:36 Pulse 90 05/20/18 09:36 Resp 24 05/20/18 09:36 BP 136/86 05/20/18 09:36 Pulse Ox 96 05/20/18 09:36 Intake & Output 05/19/18 05/20/18 05/20/18 18:59 06:59 18:59 Intake Total 480 Output Total 200 200 Balance 280 -200 Weight 65.4 kg Intake: Oral 480 Output: Urine 200 200 Other: Voiding Method Bedside Commode Bedside Commode Incontinent # Voids 2 2 1 # Bowel Movements 0 - Constitutional General appearance: Present: no acute distress - EENT Eyes: Present: EOMI ENT: Present: hearing grossly normal, normal oropharynx - Respiratory Respiratory: left: diminished - Cardiovascular Rhythm: regular Heart sounds: normal: S1, S2 - Gastrointestinal General gastrointestinal: Present: normal bowel sounds, soft - Integumentary Integumentary: Present: normal - Neurologic Neurologic: Present: CNII-XII intact - Musculoskeletal Musculoskeletal: Present: generalized weakness, strength equal bilaterally - Psychiatric Psychiatric: Present: A&O x's 3, appropriate affect - Labs CBC & Chem 7: 05/18/18 07:06 05/20/18 07:58 Labs: Abnormal Lab Results - Last 24 Hours (Table) 05/20/18 Range/Units 07:58 Carbon Dioxide 34 H (22-30) mmol/L BUN 19 H (7-17) mg/dL Glucose 134 H (74-99) mg/dL Microbiology - Last 24 Hours (Table) 05/18/18 18:46 Blood Culture - Preliminary Blood No Growth after 24 hours Assessment and Plan (1) Mass of left lung Narrative/Plan: Biopsy is still pending at this time. The patient has had a bone scan for staging, which was negative. MRI of the brain was also ordered. This was initially delayed due to concerns for the recent stent. Case was discussed with primary medicine, who confirmed and the stent was MRI compatible. The patient subsequently had MRI this morning. Results are awaited. The patient had questions about diagnosis and further management. She was advised that we need to wait for tissue diagnosis and the MRI results, and to formulate treatment plan. If MRI were negative, and if the biopsy were positive for primary lung cancer, then the patient would likely be a candidate for concurrent chemoradiation. If the biopsy were positive for lymphoma, for example, then she will be treated with chemoimmunotherapy. If the patient is discharged prior to pathology report being available, we will follow-up in the outpatient setting in the short-term Current Visit: Yes Status: Acute Code(s): R91.8 - OTHER NONSPECIFIC ABNORMAL FINDING OF LUNG FIELD SNOMED Code(s): 675987742 (2) Acute exacerbation of chronic obstructive airways disease Narrative/Plan: The patient is felt to be improved from that standpoint. Continue management per IM and pulmonary medicine Current Visit: No Status: Acute Code(s): J44.1 - CHRONIC OBSTRUCTIVE PULMONARY DISEASE W (ACUTE) EXACERBATION SNOMED Code(s): 249764129 Plan: From my standpoint, the patient can be discharged whenever felt to be okay for the same by the admitting service and other consultants. We will follow-up in the outpatient setting, and treatment recommendations will be made depending on the pathology and MRI results
--- NOTE | 2018-05-20 13:04 | P.PN ---
Subjective Progress Note Date: 05/20/18 Principal diagnosis: Acute on chronic hypoxic respiratory failure secondary to COPD exacerbation and left lung mass consistent with bronchogenic carcinoma. This is a 68-year-old female patient who has advanced oxygen-dependent COPD with an FEV1 of 37% of predicted. The patient is very well-known to me. The patient has a maintained on a combination of Brovana, Pulmicort and Spiriva on outpatient basis. She has also required steroids on a long-term basis regarding her COPD. The patient has had multiple admissions to the hospital for recurrent COPD exacerbation. Going back to the records, the patient was hearing the hospital February 2018 and she was in [facility] approximately 2 weeks ago for the same. She was treated and she was discharged home over immediately after the discharge the patient gets short of breath and she comes back for the same complaints of increased shortness of breath and dyspnea chest tightness and wheezing. Note that she has a large multinodular goiter along with symptoms of hyperthyroidism and currently she is on methimazole. No stridor. During this current admission, the patient came in with worsening shortness of breath. In the ED, the patient had a chest x-ray and subsequently she was placed on a BiPAP at a pressure of 12/5 cm of water with an FiO2 of 60%. I saw this morning. I thought she was looking better and I weaned her off to oxygen by nasal cannula at 4 L. She was able to tolerate that. I thought also that there are some atelectatic changes and fullness within the mediastinum. Based on that, I ordered a computed tomography scan of the chest and a resolved remarkably abnormal. The patient's exam was negative for pulmonary embolism. There was however a large left hilar mass occluding the left lower lobe bronchus with collapse of the left lower lobe. There was also contralateral hilar lymphadenopathy as well as subcarinal lymphadenopathy in addition to severe emphysematous changes in the background. There was also a thoracic aortic aneurysm measuring 4.8 cm in size. The goiter was again seen in the upper thoracic inlet area yet there was no significant mass effect on the trachea. Note that the hilar mass was measuring 6 x 7 x 8.9 cm in size and there was occlusion of the left lower lobe bronchus. Patient was reevaluated today on 05/15/2018, seems to be doing better, breathing easier, remains on few liters nasal cannula, in no distress, and I had a chance today to discuss with the patient the different options. She is now very well aware that the mass that she has in the left hilar area compressing on the left mainstem bronchus, and left lower lobe, is malignant unless proven otherwise. I discussed with her today what Dr. Sánchez has told her about potential bronchoscopy, tissue diagnosis, and possibly stent placement sometime this week. Patient understood, and she would like to proceed. She is very well aware that she is risky and may end up requiring intubation and mechanical ventilation. In the meantime the patient is feeling better, and I plan to transfer the patient out of the ICU until stent becomes available and hopefully sometime this week we'll address the issue of bronchoscopy and stenting. CBC showed improvement in her leukocytosis with WBC count of 22.5 hemoglobin of 10.7 basic metabolic profile is relatively normal. The patient is seen again today 05/16/2018 in follow-up on the regular medical floor. She is awake and alert in no acute distress. She is maintaining good O2 saturations in the 90s on 4 L/m per nasal cannula. She's been afebrile. Hemodynamically stable. She is having some complaints of difficulty in swallowing. Computed tomography scan of the abdomen revealed atherosclerotic vascular disease. Thoracic aortic aneurysm. Nonobstructing left renal calculus. Left lower lobe atelectasis. No evidence of abdominal or pelvic metastatic disease. Blood cultures reveal gram-positive cocci in clusters. Currently on vancomycin. White count 13.6. Hemoglobin 11.6. Creatinine 0.88. She remains on DuoNeb inhalations, Pulmicort and Perforomist inhalations. Patient is seen again today 05/17/2018 in follow-up on the regular medical floor. She is currently sitting up at the bedside. She is awake and alert in no acute distress. She continues to maintain good O2 saturations in the 90s on 4 L/m per nasal cannula. White count 10.8. Hemoglobin 11.3. The plan is for bronchoscopy with biopsy and possible stent placement today. The patient was seen again today 05/18/2018 in follow-up on the regular medical floor. She remains awake and alert in no acute distress. She states she is breathing a little better today as compared to yesterday however she did have some issues last night with loose productive cough and a small amount of hemoptysis. She did undergo bronchoscopy with transbronchial fine-needle aspirate of the mediastinal mass along with stent placement in the left mainstem bronchus. She tolerated the procedure well. Pathology is pending. Small cell lung cancer versus lymphoma are suspected. The plan is to complete her staging with an MRI of the brain and bone scan. She is currently maintaining good O2 saturations in the 90s on 4 L/m per nasal cannula. On 05/19/2018 patient seen in follow-up on medical surgical floor. She is a congested on today's exam. She is coughing, and bringing up some brown colored sputum, old blood in the sputum. Remains on 4 L per nasal cannula, her pulse ox of 95%, she is afebrile, hemodynamically stable, today's chest x-ray has been reviewed by Dr. Russo, shows stable appearance of the left perihilar mass , and degree of bibasilar atelectasis with underlying pulmonary emphysema, the endobronchial stent on the left with no pneumothorax. He is generally weak, lung sounds are positive for diffuse rhonchi throughout, there is audible rhonchi, and some limited wheezes. Needle biopsy results are still pending at this time. Today's labs have been reviewed, BNP was done only, sodium is 140, potassium is 3.2, chloride is 100, CO2 34, B1 is 18 and creatinine 0.87. We'll continue with current medical treatment. Reevaluated today on 05/20/2018, patient is less congested, feeling that he she is much better, however she had some episodes of confusion last night. On physical examination she has some scattered rhonchi and wheezes on forced expiratory maneuver, and I believe this is basically not much different from her baseline. At any rate the patient is improving steadily, could be considered for discharge home today. The final pathology from her lung biopsy is negative. Labs from today were reviewed including a normal basic metabolic profile. Objective - Vital Signs Vital signs: Vital Signs Temp 97.8 F 05/20/18 09:36 Pulse 90 05/20/18 09:36 Resp 24 05/20/18 09:36 BP 136/86 05/20/18 09:36 Pulse Ox 96 05/20/18 09:36 Intake & Output 05/19/18 05/20/18 05/20/18 18:59 06:59 18:59 Intake Total 480 Output Total 200 200 Balance 280 -200 Weight 65.4 kg Intake: Oral 480 Output: Urine 200 200 Other: Voiding Method Bedside Commode Bedside Commode Incontinent # Voids 2 2 1 # Bowel Movements 0 - Exam Physical Exam: Revealed a 68-year-old female in no distress. Head: Atraumatic, normocephalic. HEENT:[Neck is supple.] [No neck masses.] [No thyromegaly.] [No JVD.] No icterus. Chest: [Extremely diminished breath sound bilaterally, but more diminished on the left side. Rhonchi noted on forced expiratory maneuver. Cardiac Exam: [Normal S1 and S2, no S3 gallop, no murmur.] Abdomen: [Soft, nontender, no megaly, no rebound, no guarding, normal bowel sounds.] Extremities: [No clubbing, no edema, no cyanosis.] Neurological Exam: Alert and oriented 3. [No focal neurologic deficit.] Psychiatric: Normal mood, affect and mental status examination. Skin: No rashes. - Labs CBC & Chem 7: 05/18/18 07:06 05/20/18 07:58 Labs: Abnormal Lab Results - Last 24 Hours (Table) 05/20/18 Range/Units 07:58 Carbon Dioxide 34 H (22-30) mmol/L BUN 19 H (7-17) mg/dL Glucose 134 H (74-99) mg/dL Microbiology - Last 24 Hours (Table) 05/18/18 18:46 Blood Culture - Preliminary Blood No Growth after 24 hours Assessment and Plan Assessment: Impression: 1 acute on chronic hypoxic respiratory failure secondary to COPD exacerbation. 2 large left hilar mass, most likely secondary to small cell lung cancer unless liver otherwise. Patient is status post bronchoscopy, wind needle aspiration, and stent placement in the left lower lobe bronchus. 3 history of thoracic spine compression fractures. 4 history of nephrectomy 5 thoracic aortic aneurysm 6 benign essential hypertension 8 medical debility secondary to severe underlying COPD and chronic hypoxic respiratory failure 9 chronic insomnia 10 multinodular goiter with hyperthyroidism the 11 generalized anxiety disorder. Recommendation: Continue present treatment plan including bronchodilators, steroids, antibiotics, consider discharge planning today, and follow-up with Dr. Sánchez on outpatient basis. Again her biopsy from the lung is still pending. But it is most likely going to be positive for small cell lung cancer. Time with Patient: Less than 30
--- NOTE | 2018-05-20 16:16 | P.PN ---
Subjective on-call hospitalist covering Dr. Ellis over the holiday and weekend this is a pleasant 68 years old female with past medical history of asthma/COPD , hypertension, hypothyroidism, chronic hypoxic respiratory failure on 3 L oxygen via nasal cannula. Patient has been evaluated by pulmonary team and found acute COPD exacerbation and left lung mass contributing to bronchial obstruction. With extensive mediastinal lymphadenopathy. Patient status post bronchoscopy and biopsy yesterday. Patient today was lying in bed with no significant dyspnea. Denies chest pain. No abdominal pain. No fever.vitals stable.mild leukocytosis at 11.1. Blood culture is positive for micrococcus from 05/13/2018. We will repeat blood culture.chest x-ray from yesterday shows atelectasis and no pneumothorax after the bronchoscopy. She is status post steroids yesterday. 05/19/2018 Was sitting on the site of bed comfortable. With little dyspnea but no chest pain. No more hemoptysis. She will however she has some coughing and grayish phlegm. Oncologist recommended MRI of the brain and towards and for staging. However she has a stent for her bronchoscopy. Discussed with the bedside nurse to hold it for now. Vital stable. Sodium 140. Potassium 3.2 05/20/2018 Patient still have a little bit dyspnea and secretions. However her saturations well. She is on 4 L oxygen via nasal cannula which is same as her home oxygen. Patient has been evaluated by pulmonary and hematology/oncology team and their input is appreciated. Patient wanted to leave earlier however she change her mind later on after her son at bedside and Mr. Chiang failure and talk to her. Lung mass Biopsy is still pending. Objective - Vital Signs Vital signs: Vital Signs Temp 97.8 F 05/20/18 09:36 Pulse 90 05/20/18 09:36 Resp 24 05/20/18 09:36 BP 136/86 05/20/18 09:36 Pulse Ox 96 05/20/18 09:36 Intake & Output 05/19/18 05/20/18 05/20/18 18:59 06:59 18:59 Intake Total 480 Output Total 200 200 Balance 280 -200 Weight 65.4 kg Intake: Oral 480 Output: Urine 200 200 Other: Voiding Method Bedside Commode Bedside Commode Incontinent # Voids 2 2 1 # Bowel Movements 0 - Exam GENERAL: The patient is alert and oriented x3, not in any acute distress. Well developed, well nourished. HEENT: Pupils are round and equally reacting to light. EOMI. No scleral icterus. No conjunctival pallor. Normocephalic, atraumatic. No pharyngeal erythema. No thyromegaly. CARDIOVASCULAR: S1 and S2 present. No murmurs, rubs, or gallops. PULMONARY: Chest is clear to auscultation, no wheezing or crackles. ABDOMEN: Soft, nontender, nondistended, normoactive bowel sounds. No palpable organomegaly. MUSCULOSKELETAL: No joint swelling or deformity. EXTREMITIES: No cyanosis, clubbing, or pedal edema. NEUROLOGICAL: Gross neurological examination did not reveal any focal deficits. SKIN: No rashes. - Labs CBC & Chem 7: 05/18/18 07:06 05/20/18 07:58 Labs: Abnormal Lab Results - Last 24 Hours (Table) 05/20/18 Range/Units 07:58 Carbon Dioxide 34 H (22-30) mmol/L BUN 19 H (7-17) mg/dL Glucose 134 H (74-99) mg/dL Microbiology - Last 24 Hours (Table) 05/18/18 18:46 Blood Culture - Preliminary Blood No Growth after 24 hours Assessment and Plan Assessment: acute COPD exacerbation Left lung mass status post bronchoscopy and biopsy Acute hypoxemic respiratory failure, patient has history of chronic respiratory failure on home oxygen Micrococcus bacteremia. vancomycin was stopped 2 days ago. mild leukocytosis, mostly reactive secondary to steroid effect Plan: this is a pleasant 68 years old female presents with acute COPD exacerbation and lung mass. Patient is found up by the pulmonary team. Pathology result for her lung biopsy is still pending Labs and medication were reviewed.. oncology team has been consulted.Continue same treatment. Continue with symptomatic treatment. Resume home medication. Monitor lytes and vitals. DVT and GI prophylaxis. Further recommendations of the clinical course of the patient DVT prophylaxis: Subcutaneous heparin Prognosis is guarded
[2018-05-20] MEDS: CHOLECALCIFEROL 1,000 UNIT TAB PO SCH (16:32)
[2018-05-20] MEDS: ATORVASTATIN 10 MG TAB PO SCH (22:45)
[2018-05-21] MEDS: HEPARIN SODIUM,PORCINE 5,000 UNIT/ML 1 ML VIAL SQ SCH ×3 (00:07→16:26)
[2018-05-21] MEDS: HYDROcodone/APAP 10-325MG 1 EACH TAB PO PRN ×2 (05:05→11:41)
[2018-05-21 07:50] LABS: Basophils % (A) 0 %; Eosinophils # (A) 0.3 k/uL (0-0.7); Eosinophils % (A) 3 %; HCT 34.1 % (34.0-46.0); HGB 10.9 gm/dL (11.4-16.0); Lymphocytes # (A) 1.2 k/uL (1.0-4.8); Lymphocytes % (A) 12 %; MCH 28.2 pg (25.0-35.0); MCHC 31.9 g/dL (31.0-37.0); MCV 88.4 fL (80.0-100.0); Mean Platelet Volume 6.4; Monocytes # (A) 0.6 k/uL (0-1.0); Monocytes % (A) 6 %; Neutrophils # (A) 7.3 k/uL (1.3-7.7); Neutrophils % (A) 76 %; Platelet Count 230 k/uL (150-450); RBC 3.85 m/uL (3.80-5.40); RDW 15.6 % (11.5-15.5); WBC 9.6 k/uL (3.8-10.6)
[2018-05-21] MEDS: BUDESONIDE 1 MG/2 ML NEBU INHALATION SCH ×2 (08:33→21:10)
[2018-05-21] MEDS: FORMOTEROL FUMARATE 20 MCG/2 ML NEBU INHALATION SCH ×2 (08:33→21:10)
[2018-05-21] MEDS: IPRATROPIUM-ALBUTEROL 3 ML NEB INHALATION SCH ×4 (08:33→21:10)
[2018-05-21] MEDS: DULoxetine HCL 60 MG CAPSULE.DR PO SCH (09:22)
[2018-05-21] MEDS: DULoxetine HCL 30 MG CAPSULE.DR PO SCH (09:22)
[2018-05-21] MEDS: ASPIRIN 81 MG PO SCH (09:23)
[2018-05-21] MEDS: ALPRAZolam 0.5 MG TAB PO SCH ×2 (09:23→16:26)
[2018-05-21] MEDS: METOPROLOL SUCCINATE (ER) 25 MG TAB.ER.24H PO SCH (09:23)
[2018-05-21] MEDS: ONDANSETRON 4 MG TAB PO SCH (09:23)
[2018-05-21] MEDS: METHIMAZOLE 5 MG TAB PO SCH (09:23)
--- NOTE | 2018-05-21 15:39 | P.PN ---
Subjective Progress Note Date: 05/21/18 Principal diagnosis: Acute on chronic hypoxic respiratory failure secondary to COPD exacerbation and left lung mass consistent with bronchogenic carcinoma. This is a 68-year-old female patient who has advanced oxygen-dependent COPD with an FEV1 of 37% of predicted. The patient is very well-known to me. The patient has a maintained on a combination of Brovana, Pulmicort and Spiriva on outpatient basis. She has also required steroids on a long-term basis regarding her COPD. The patient has had multiple admissions to the hospital for recurrent COPD exacerbation. Going back to the records, the patient was hearing the hospital February 2018 and she was in [facility] approximately 2 weeks ago for the same. She was treated and she was discharged home over immediately after the discharge the patient gets short of breath and she comes back for the same complaints of increased shortness of breath and dyspnea chest tightness and wheezing. Note that she has a large multinodular goiter along with symptoms of hyperthyroidism and currently she is on methimazole. No stridor. During this current admission, the patient came in with worsening shortness of breath. In the ED, the patient had a chest x-ray and subsequently she was placed on a BiPAP at a pressure of 12/5 cm of water with an FiO2 of 60%. I saw this morning. I thought she was looking better and I weaned her off to oxygen by nasal cannula at 4 L. She was able to tolerate that. I thought also that there are some atelectatic changes and fullness within the mediastinum. Based on that, I ordered a computed tomography scan of the chest and a resolved remarkably abnormal. The patient's exam was negative for pulmonary embolism. There was however a large left hilar mass occluding the left lower lobe bronchus with collapse of the left lower lobe. There was also contralateral hilar lymphadenopathy as well as subcarinal lymphadenopathy in addition to severe emphysematous changes in the background. There was also a thoracic aortic aneurysm measuring 4.8 cm in size. The goiter was again seen in the upper thoracic inlet area yet there was no significant mass effect on the trachea. Note that the hilar mass was measuring 6 x 7 x 8.9 cm in size and there was occlusion of the left lower lobe bronchus. Patient was reevaluated today on 05/15/2018, seems to be doing better, breathing easier, remains on few liters nasal cannula, in no distress, and I had a chance today to discuss with the patient the different options. She is now very well aware that the mass that she has in the left hilar area compressing on the left mainstem bronchus, and left lower lobe, is malignant unless proven otherwise. I discussed with her today what Dr. Sánchez has told her about potential bronchoscopy, tissue diagnosis, and possibly stent placement sometime this week. Patient understood, and she would like to proceed. She is very well aware that she is risky and may end up requiring intubation and mechanical ventilation. In the meantime the patient is feeling better, and I plan to transfer the patient out of the ICU until stent becomes available and hopefully sometime this week we'll address the issue of bronchoscopy and stenting. CBC showed improvement in her leukocytosis with WBC count of 22.5 hemoglobin of 10.7 basic metabolic profile is relatively normal. The patient is seen again today 05/16/2018 in follow-up on the regular medical floor. She is awake and alert in no acute distress. She is maintaining good O2 saturations in the 90s on 4 L/m per nasal cannula. She's been afebrile. Hemodynamically stable. She is having some complaints of difficulty in swallowing. Computed tomography scan of the abdomen revealed atherosclerotic vascular disease. Thoracic aortic aneurysm. Nonobstructing left renal calculus. Left lower lobe atelectasis. No evidence of abdominal or pelvic metastatic disease. Blood cultures reveal gram-positive cocci in clusters. Currently on vancomycin. White count 13.6. Hemoglobin 11.6. Creatinine 0.88. She remains on DuoNeb inhalations, Pulmicort and Perforomist inhalations. Patient is seen again today 05/17/2018 in follow-up on the regular medical floor. She is currently sitting up at the bedside. She is awake and alert in no acute distress. She continues to maintain good O2 saturations in the 90s on 4 L/m per nasal cannula. White count 10.8. Hemoglobin 11.3. The plan is for bronchoscopy with biopsy and possible stent placement today. The patient was seen again today 05/18/2018 in follow-up on the regular medical floor. She remains awake and alert in no acute distress. She states she is breathing a little better today as compared to yesterday however she did have some issues last night with loose productive cough and a small amount of hemoptysis. She did undergo bronchoscopy with transbronchial fine-needle aspirate of the mediastinal mass along with stent placement in the left mainstem bronchus. She tolerated the procedure well. Pathology is pending. Small cell lung cancer versus lymphoma are suspected. The plan is to complete her staging with an MRI of the brain and bone scan. She is currently maintaining good O2 saturations in the 90s on 4 L/m per nasal cannula. On 05/19/2018 patient seen in follow-up on medical surgical floor. She is a congested on today's exam. She is coughing, and bringing up some brown colored sputum, old blood in the sputum. Remains on 4 L per nasal cannula, her pulse ox of 95%, she is afebrile, hemodynamically stable, today's chest x-ray has been reviewed by Dr. Russo, shows stable appearance of the left perihilar mass , and degree of bibasilar atelectasis with underlying pulmonary emphysema, the endobronchial stent on the left with no pneumothorax. He is generally weak, lung sounds are positive for diffuse rhonchi throughout, there is audible rhonchi, and some limited wheezes. Needle biopsy results are still pending at this time. Today's labs have been reviewed, BNP was done only, sodium is 140, potassium is 3.2, chloride is 100, CO2 34, B1 is 18 and creatinine 0.87. We'll continue with current medical treatment. Reevaluated today on 05/20/2018, patient is less congested, feeling that he she is much better, however she had some episodes of confusion last night. On physical examination she has some scattered rhonchi and wheezes on forced expiratory maneuver, and I believe this is basically not much different from her baseline. At any rate the patient is improving steadily, could be considered for discharge home today. The final pathology from her lung biopsy is negative. Labs from today were reviewed including a normal basic metabolic profile. Reevaluated today on 05/20/2018, patient is less congested, feeling that he she is much better, however she had some episodes of confusion last night. On physical examination she has some scattered rhonchi and wheezes on forced expiratory maneuver, and I believe this is basically not much different from her baseline. At any rate the patient is improving steadily, could be considered for discharge home today. The final pathology from her lung biopsy is negative. Labs from today were reviewed including a normal basic metabolic profile. Patient was reevaluated today on 05/21/2018, feeling better, breathing easier, her MRI of the brain came back negative. Pulmonary-gold a believe she is at her baseline, and the patient could be considered for discharge planning. Labs were all reviewed she has a relatively normal CBC and normal basic metabolic profile. MRI report was also reviewed Objective - Vital Signs Vital signs: Vital Signs Temp 97.7 F 05/21/18 07:00 Pulse 73 05/21/18 12:16 Resp 24 05/21/18 07:00 BP 161/87 05/21/18 07:00 Pulse Ox 96 05/21/18 07:00 Intake & Output 05/20/18 05/21/18 05/21/18 18:59 06:59 18:59 Output Total 200 200 Balance -200 -200 Output: Urine 200 200 Other: Voiding Method Bedside Commode # Voids 3 1 1 # Bowel Movements 0 - Exam Physical Exam: Revealed a 68-year-old female in no distress. Head: Atraumatic, normocephalic. HEENT:[Neck is supple.] [No neck masses.] [No thyromegaly.] [No JVD.] No icterus. Chest: [Extremely diminished breath sound bilaterally, but more diminished on the left side. Rhonchi noted on forced expiratory maneuver. Cardiac Exam: [Normal S1 and S2, no S3 gallop, no murmur.] Abdomen: [Soft, nontender, no megaly, no rebound, no guarding, normal bowel sounds.] Extremities: [No clubbing, no edema, no cyanosis.] Neurological Exam: Alert and oriented 3. [No focal neurologic deficit.] Psychiatric: Normal mood, affect and mental status examination. Skin: No rashes. - Labs CBC & Chem 7: 05/21/18 07:18 05/20/18 07:58 Labs: Abnormal Lab Results - Last 24 Hours (Table) 05/21/18 Range/Units 07:18 Hgb 10.9 L (11.4-16.0) gm/dL RDW 15.6 H (11.5-15.5) % Microbiology - Last 24 Hours (Table) 05/18/18 18:46 Blood Culture - Preliminary Blood No Growth after 48 hours Assessment and Plan Assessment: Impression: 1 acute on chronic hypoxic respiratory failure secondary to COPD exacerbation. 2 large left hilar mass, most likely secondary to small cell lung cancer unless liver otherwise. Patient is status post bronchoscopy, wind needle aspiration, and stent placement in the left lower lobe bronchus. 3 history of thoracic spine compression fractures. 4 history of nephrectomy 5 thoracic aortic aneurysm 6 benign essential hypertension 8 medical debility secondary to severe underlying COPD and chronic hypoxic respiratory failure 9 chronic insomnia 10 multinodular goiter with hyperthyroidism the 11 generalized anxiety disorder. Recommendation: Continue present treatment plan including bronchodilators, steroids, antibiotics, clear for discharge planning, could discharge home today or possibly in the next 24 hours at the most. Follow-up with Dr. Sánchez on outpatient basis. Time with Patient: Less than 30
[2018-05-21] MEDS: CHOLECALCIFEROL 1,000 UNIT TAB PO SCH (16:30)
[2018-05-21] MEDS: ATORVASTATIN 10 MG TAB PO SCH (21:14)
--- NOTE | 2018-05-21 23:53 | P.PN ---
Subjective on-call hospitalist covering Dr. Ellis over the holiday and weekend this is a pleasant 68 years old female with past medical history of asthma/COPD , hypertension, hypothyroidism, chronic hypoxic respiratory failure on 3 L oxygen via nasal cannula. Patient has been evaluated by pulmonary team and found acute COPD exacerbation and left lung mass contributing to bronchial obstruction. With extensive mediastinal lymphadenopathy. Patient status post bronchoscopy and biopsy yesterday. Patient today was lying in bed with no significant dyspnea. Denies chest pain. No abdominal pain. No fever.vitals stable.mild leukocytosis at 11.1. Blood culture is positive for micrococcus from 05/13/2018. We will repeat blood culture.chest x-ray from yesterday shows atelectasis and no pneumothorax after the bronchoscopy. She is status post steroids yesterday. 05/19/2018 Was sitting on the site of bed comfortable. With little dyspnea but no chest pain. No more hemoptysis. She will however she has some coughing and grayish phlegm. Oncologist recommended MRI of the brain and towards and for staging. However she has a stent for her bronchoscopy. Discussed with the bedside nurse to hold it for now. Vital stable. Sodium 140. Potassium 3.2 05/20/2018 Patient still have a little bit dyspnea and secretions. However her saturations well. She is on 4 L oxygen via nasal cannula which is same as her home oxygen. Patient has been evaluated by pulmonary and hematology/oncology team and their input is appreciated. Patient wanted to leave earlier however she change her mind later on after her son at bedside and Mr. Chiang failure and talk to her. Lung mass Biopsy is still pending. 05/21/2018 Patient still dyspneic with coarse crepitations. She is saturating 94-96 on 4 L nasal cannula. WBC came back to normal at 9.6. Results of CBC was unremarkable. Pathology results for his lung mass is still pending. Objective - Vital Signs Vital signs: Vital Signs Temp 97.7 F 05/21/18 07:00 Pulse 73 05/21/18 12:16 Resp 24 05/21/18 07:00 BP 161/87 05/21/18 07:00 Pulse Ox 96 05/21/18 07:00 Intake & Output 05/20/18 05/21/18 05/21/18 18:59 06:59 18:59 Output Total 200 200 Balance -200 -200 Output: Urine 200 200 Other: Voiding Method Bedside Commode # Voids 3 1 1 # Bowel Movements 0 - Exam GENERAL: The patient is alert and oriented x3, not in any acute distress. Well developed, well nourished. HEENT: Pupils are round and equally reacting to light. EOMI. No scleral icterus. No conjunctival pallor. Normocephalic, atraumatic. No pharyngeal erythema. No thyromegaly. CARDIOVASCULAR: S1 and S2 present. No murmurs, rubs, or gallops. PULMONARY: Chest is clear to auscultation, no wheezing or crackles. ABDOMEN: Soft, nontender, nondistended, normoactive bowel sounds. No palpable organomegaly. MUSCULOSKELETAL: No joint swelling or deformity. EXTREMITIES: No cyanosis, clubbing, or pedal edema. NEUROLOGICAL: Gross neurological examination did not reveal any focal deficits. SKIN: No rashes. - Labs CBC & Chem 7: 05/21/18 07:18 05/20/18 07:58 Labs: Abnormal Lab Results - Last 24 Hours (Table) 05/21/18 Range/Units 07:18 Hgb 10.9 L (11.4-16.0) gm/dL RDW 15.6 H (11.5-15.5) % Microbiology - Last 24 Hours (Table) 05/18/18 18:46 Blood Culture - Preliminary Blood No Growth after 48 hours Assessment and Plan Assessment: acute COPD exacerbation Left lung mass status post bronchoscopy and biopsy Acute hypoxemic respiratory failure, patient has history of chronic respiratory failure on home oxygen Micrococcus bacteremia. vancomycin was stopped 2 days ago. mild leukocytosis, mostly reactive secondary to steroid effect Plan: this is a pleasant 68 years old female presents with acute COPD exacerbation and lung mass. Patient is found up by the pulmonary team. Pathology result for her lung biopsy is still pending Labs and medication were reviewed.. oncology team has been consulted.Continue same treatment. Continue with symptomatic treatment. Resume home medication. Monitor lytes and vitals. DVT and GI prophylaxis. Further recommendations of the clinical course of the patient DVT prophylaxis: Subcutaneous heparin Prognosis is guarded
[2018-05-22] MEDS: ALPRAZolam 0.5 MG TAB PO SCH ×3 (00:08→15:45)
[2018-05-22] MEDS: HEPARIN SODIUM,PORCINE 5,000 UNIT/ML 1 ML VIAL SQ SCH ×2 (00:08→07:33)
[2018-05-22] MEDS: HYDROcodone/APAP 10-325MG 1 EACH TAB PO PRN ×2 (04:18→12:20)
[2018-05-22] MEDS: IPRATROPIUM-ALBUTEROL 3 ML NEB INHALATION SCH ×2 (07:05→11:29)
[2018-05-22] MEDS: FORMOTEROL FUMARATE 20 MCG/2 ML NEBU INHALATION SCH (07:05)
[2018-05-22] MEDS: BUDESONIDE 1 MG/2 ML NEBU INHALATION SCH (07:05)
[2018-05-22] MEDS: METOPROLOL SUCCINATE (ER) 25 MG TAB.ER.24H PO SCH (07:29)
[2018-05-22] MEDS: ONDANSETRON 4 MG TAB PO SCH (07:30)
[2018-05-22] MEDS: DULoxetine HCL 60 MG CAPSULE.DR PO SCH (07:30)
[2018-05-22] MEDS: ASPIRIN 81 MG PO SCH (07:30)
[2018-05-22] MEDS: METHIMAZOLE 5 MG TAB PO SCH (07:31)
[2018-05-22 08:11] VITALS: BP 138/90; RESP 15; TEMP 97.6
[2018-05-22] MEDS: DULoxetine HCL 30 MG CAPSULE.DR PO SCH (08:31)
[2018-05-22 09:20] LABS: Basophils % (A) 0 %; Eosinophils # (A) 0.3 k/uL (0-0.7); Eosinophils % (A) 3 %; HCT 35.4 % (34.0-46.0); HGB 11.3 gm/dL (11.4-16.0); Hypochromasia Slight; Lymphocytes # (A) 1.1 k/uL (1.0-4.8); Lymphocytes % (A) 14 %; MCH 27.9 pg (25.0-35.0); MCHC 31.9 g/dL (31.0-37.0); MCV 87.4 fL (80.0-100.0); Mean Platelet Volume 6.3; Monocytes # (A) 0.5 k/uL (0-1.0); Monocytes % (A) 6 %; Neutrophils % (A) 75 %; Platelet Count 250 k/uL (150-450); RBC 4.05 m/uL (3.80-5.40); RDW 15.3 % (11.5-15.5)
[2018-05-22 11:40] VITALS: PULSE 88
--- NOTE | 2018-05-22 15:09 | P.PN ---
Subjective Progress Note Date: 05/22/18 Principal diagnosis: Acute on chronic hypoxic respiratory failure secondary to an acute exacerbation of COPD and a left lung mass consistent with bronchogenic carcinoma. This is a 68-year-old female patient who has advanced oxygen-dependent COPD with an FEV1 of 37% of predicted. The patient is very well-known to me. The patient has a maintained on a combination of Brovana, Pulmicort and Spiriva on outpatient basis. She has also required steroids on a long-term basis regarding her COPD. The patient has had multiple admissions to the hospital for recurrent COPD exacerbation. Going back to the records, the patient was hearing the hospital February 2018 and she was in [facility] approximately 2 weeks ago for the same. She was treated and she was discharged home over immediately after the discharge the patient gets short of breath and she comes back for the same complaints of increased shortness of breath and dyspnea chest tightness and wheezing. Note that she has a large multinodular goiter along with symptoms of hyperthyroidism and currently she is on methimazole. No stridor. During this current admission, the patient came in with worsening shortness of breath. In the ED, the patient had a chest x-ray and subsequently she was placed on a BiPAP at a pressure of 12/5 cm of water with an FiO2 of 60%. I saw this morning. I thought she was looking better and I weaned her off to oxygen by nasal cannula at 4 L. She was able to tolerate that. I thought also that there are some atelectatic changes and fullness within the mediastinum. Based on that, I ordered a computed tomography scan of the chest and a resolved remarkably abnormal. The patient's exam was negative for pulmonary embolism. There was however a large left hilar mass occluding the left lower lobe bronchus with collapse of the left lower lobe. There was also contralateral hilar lymphadenopathy as well as subcarinal lymphadenopathy in addition to severe emphysematous changes in the background. There was also a thoracic aortic aneurysm measuring 4.8 cm in size. The goiter was again seen in the upper thoracic inlet area yet there was no significant mass effect on the trachea. Note that the hilar mass was measuring 6 x 7 x 8.9 cm in size and there was occlusion of the left lower lobe bronchus. Patient was reevaluated today on 05/15/2018, seems to be doing better, breathing easier, remains on few liters nasal cannula, in no distress, and I had a chance today to discuss with the patient the different options. She is now very well aware that the mass that she has in the left hilar area compressing on the left mainstem bronchus, and left lower lobe, is malignant unless proven otherwise. I discussed with her today what Dr. Sánchez has told her about potential bronchoscopy, tissue diagnosis, and possibly stent placement sometime this week. Patient understood, and she would like to proceed. She is very well aware that she is risky and may end up requiring intubation and mechanical ventilation. In the meantime the patient is feeling better, and I plan to transfer the patient out of the ICU until stent becomes available and hopefully sometime this week we'll address the issue of bronchoscopy and stenting. CBC showed improvement in her leukocytosis with WBC count of 22.5 hemoglobin of 10.7 basic metabolic profile is relatively normal. The patient is seen again today 05/16/2018 in follow-up on the regular medical floor. She is awake and alert in no acute distress. She is maintaining good O2 saturations in the 90s on 4 L/m per nasal cannula. She's been afebrile. Hemodynamically stable. She is having some complaints of difficulty in swallowing. Computed tomography scan of the abdomen revealed atherosclerotic vascular disease. Thoracic aortic aneurysm. Nonobstructing left renal calculus. Left lower lobe atelectasis. No evidence of abdominal or pelvic metastatic disease. Blood cultures reveal gram-positive cocci in clusters. Currently on vancomycin. White count 13.6. Hemoglobin 11.6. Creatinine 0.88. She remains on DuoNeb inhalations, Pulmicort and Perforomist inhalations. Patient is seen again today 05/17/2018 in follow-up on the regular medical floor. She is currently sitting up at the bedside. She is awake and alert in no acute distress. She continues to maintain good O2 saturations in the 90s on 4 L/m per nasal cannula. White count 10.8. Hemoglobin 11.3. The plan is for bronchoscopy with biopsy and possible stent placement today. The patient was seen again today 05/18/2018 in follow-up on the regular medical floor. She remains awake and alert in no acute distress. She states she is breathing a little better today as compared to yesterday however she did have some issues last night with loose productive cough and a small amount of hemoptysis. She did undergo bronchoscopy with transbronchial fine-needle aspirate of the mediastinal mass along with stent placement in the left mainstem bronchus. She tolerated the procedure well. Pathology is pending. Small cell lung cancer versus lymphoma are suspected. The plan is to complete her staging with an MRI of the brain and bone scan. She is currently maintaining good O2 saturations in the 90s on 4 L/m per nasal cannula. Reevaluated today on 05/20/2018, patient is less congested, feeling that he she is much better, however she had some episodes of confusion last night. On physical examination she has some scattered rhonchi and wheezes on forced expiratory maneuver, and I believe this is basically not much different from her baseline. At any rate the patient is improving steadily, could be considered for discharge home today. The final pathology from her lung biopsy is negative. Labs from today were reviewed including a normal basic metabolic profile. Patient was reevaluated today on 05/21/2018, feeling better, breathing easier, her MRI of the brain came back negative. Pulmonary-gold a believe she is at her baseline, and the patient could be considered for discharge planning. Labs were all reviewed she has a relatively normal CBC and normal basic metabolic profile. MRI report was also reviewed. Patient is seen again today 05/22/2018 in follow-up on the regular medical floor. She is currently awake and alert in no acute distress. She is sitting up at the bedside. He is maintaining good O2 saturations in the upper 90s on 4 L/m per nasal cannula. She's afebrile. Hemodynamically stable. Her bone scan and MRI of the brain came back negative for metastasis. Her pathology report is positive for small cell lung cancer. Blood cultures reveal no growth. White count 8.0. Hemoglobin 11.3. Objective - Vital Signs Vital signs: Vital Signs Temp 97.6 F 05/22/18 07:00 Pulse 88 05/22/18 11:39 Resp 15 05/22/18 07:00 BP 138/90 05/22/18 07:00 Pulse Ox 97 05/22/18 07:00 Intake & Output 05/21/18 05/22/18 05/22/18 18:59 06:59 18:59 Output Total 200 450 Balance -200 -450 Output: Urine 200 450 Other: Voiding Method Bedside Commode Bedside Commode # Voids 1 1 - Exam Gen. appearance the patient is in mild degree of shortness of breath even at rest. She is currently on high flow oxygen at 4 L per minute nasal cannula. Head exam was generally normal. There was no scleral icterus or corneal arcus. Mucous membranes were moist. Neck was supple and without jugular venous distension, thyromegaly, or carotid bruits. Carotids were easily palpable bilaterally. There was no adenopathy. Lungs sounds are diminished bilaterally especially in the left lower lobe area and expiratory wheezes heard throughout the lung. Then prolongation of expiratory phase of breathing. Cardiac exam revealed the PMI to be normally situated and sized. The rhythm was regular and no extrasystoles were noted during several minutes of auscultation. The first and second heart sounds were normal and physiologic splitting of the second heart sound was noted. There were no murmurs, rubs, clicks, or gallops. Abdominal exam revealed normal bowel sounds. The abdomen was soft, non-tender, and without masses, organomegaly, or appreciable enlargement of the abdominal aorta. Examination of the extremities revealed easily palpable radial, femoral and pedal pulses. There was no cyanosis, clubbing or edema. Examination of the skin revealed no evidence of significant rashes, suspicious appearing nevi or other concerning lesions. Neurologically awake and alert there is no focal neurological deficit. Psychiatrically the patient has chronic anxiety and depression. - Labs CBC & Chem 7: 05/22/18 08:47 05/20/18 07:58 Labs: Abnormal Lab Results - Last 24 Hours (Table) 05/22/18 Range/Units 08:47 Hgb 11.3 L (11.4-16.0) gm/dL Microbiology - Last 24 Hours (Table) 05/18/18 18:46 Blood Culture - Preliminary Blood No Growth after 72 hours Assessment and Plan Assessment: Assessment 1 acute COPD exacerbation with secondary shortness of breath 2 large left hilar mass measuring 6 x 8 cm in size causing obstruction of the left lower lobe bronchus with limited atelectasis of the left lung base. The patient has extensive mediastinal lymphadenopathy, subcarinal lymphadenopathy, right hilar lymphadenopathy. Pathology is positive for small cell lung cancer. 3 acute on chronic hypoxic respiratory failure secondary to above, currently on 4 L of oxygen nasal cannula, earlier requiring BiPAP 4 bacteremia secondary to gram-positive cocci in clusters. Currently on vancomycin. 5 chronic hypoxic respiratory failure typically on 2 L of oxygen nasal cannula 6 history of compression fracture of the thoracic spine maintained on a combination of calcium and vitamin D 7 history of total nephrectomy and the patient undergone nephrectomy for donation and the renal function is stable for now 8 chronic anxiety 9 degenerative arthritis 10 thoracic aortic aneurysm 11 chronic insomnia 12 previous history of bowel obstruction requiring lysis of adhesion 13 diverticular disease 14 nephrolithiasis 15 hypertension 16 hyperlipidemia 17 multinodular goiter, on methimazole 18 debility secondary to above-mentioned comorbidities Plan The patient was seen and evaluated by Dr. Gilbert. He did inform her of her non- small cell lung cancer diagnosis. She will follow-up with oncology regarding the treatment plan. She is quite anxious to go home and is cleared for discharge from the pulmonary standpoint. She should follow-up with Dr. Sánchez in our office in 1 week. She is however encouraged to call sooner with any worsening of shortness of breath or other questions or concerns. I, the cosigning physician, performed a history & physical examination of the patient. Lungs sounds with scattered rhonchi, diminished. Maintaining good O2 saturations in the 90s on 4 L high flow nasal cannula. I discussed the assessment and plan of care with my nurse practitioner, Sonia Schwab. I attest to the above note as dictated by her.
--- NOTE | 2018-05-22 15:26 | P.CONS ---
History of Present Illness - Reason for Consult Consult date: 05/22/18 new diagnosis lung cancer Requesting physician: Piedad Sánchez - Chief Complaint dyspnea - History of Present Illness The patient is a 68 year old female with a history of O2 dependent COPD. She presented to the ER with increased dyspnea. An abnormal CXR lead to a CTA on which showed a large left hilar mass with partial LLL collapse. Subcarinal adenopathy appreciated as well as concern for contralateral hilar disease. She ultimately had a bronchoscopy on 05/17 which revealed severe narrowing of the distal left mainstem bronchus. Biopsy of this area did reveal small-cell lung cancer. Subsequent CT of the abdomen/pelvis, bone scan and MRI of the brain did not show distant metastatic disease. The patient reports her dyspnea is improved this AM. She does report that she is unable to walk to the restroom without being short of breath, but that this is stable since perhaps this Spring. She has lost 10 pounds unintentionally; she denies hemoptysis. Review of Systems Constitutional: Denies chills, Denies fever Eyes: denies blurred vision Ears: deny: decreased hearing, ear discharge Ears, nose, mouth and throat: Denies headache Cardiovascular: Denies chest pain Respiratory: Reports dyspnea, Reports home oxygen, Denies hemoptysis Gastrointestinal: Denies abdominal pain Genitourinary: Denies flank pain Musculoskeletal: Reports low back pain (Mid-back discomfort that radiates is present) Neurological: Denies aphasia, Denies ataxia Psychiatric: Denies confusion Past Medical History Past Medical History: Asthma, COPD, Hypertension, Pneumonia, Thyroid Disorder Additional Past Medical History / Comment(s): recent UTI-now resolved, 2016 resp arrest, on vent here FEB 2017-resp. failure-on vent. 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 polypectomy bleed and was in ICU, Graves disease, AAA found in June 2012 - has been stable since then History of Any Multi-Drug Resistant Organisms: None Reported Past Surgical History: Cholecystectomy, Hysterectomy, Orthopedic Surgery Additional Past Surgical History / Comment(s): R nephrectomy, 2012 laparotomy with lysis of adhesions from kidney surgery causing bowel obstruction. L shoulder and collar bone surgery, colonoscopy with polypectomy, cataract surg- lens implants. AAA, Past Anesthesia/Blood Transfusion Reactions: No Reported Reaction Additional Past Anesthesia/Blood Transfusion Reaction / Comm: Pt has never received blood. Past Psychological History: Depression Additional Psychological History / Comment(s): Pt has an adult son navarro residing with her. Her spouse in October of 2017. no home care services recieved. She has home O2 and a nebulizer that she uses and also hasbsc ,shower chair and walker if needed. She drives. Smoking Status: Former smoker Past Alcohol Use History: None Reported Additional Past Alcohol Use History / Comment(s): Pt started smoking in 1975 and quit smoking in 2012. smoked 1/2 ppd Past Drug Use History: None Reported - Past Family History Father Family Medical History: Cancer Additional Family Medical History / Comment(s): Pancreatic cancer and passed when he was 58 Mother Family Medical History: No Reported History Additional Family Medical History / Comment(s): None Medications and Allergies Home Medications Medication Instructions Recorded Confirmed Type Aspirin EC [Ecotrin Low Dose] 81 mg PO DAILY 10/22/14 05/14/18 History Budesonide [Pulmicort] 1 mg INHALATION RT-BID@1000,1400 10/22/14 05/13/18 History Albuterol Nebulized [Ventolin 2.5 mg INHALATION 03/25/17 05/14/18 History Nebulized] RT-QID@08,,, Albuterol Sulfate [Proair Hfa] 2 puff INHALATION RT-QID PRN 03/25/17 05/14/18 History Arformoterol Tartrate [Brovana] 15 mcg INHALATION RT-BID@0800,1700 03/25/17 History Calcium Carbonate/Vitamin D3 1 tab PO DAILY@1700 03/25/17 05/14/18 History [Calcium 600-Vit D3 200 Tablet] DULoxetine HCL [Cymbalta] 60 mg PO DAILY@0800 03/25/17 05/14/18 History Metoprolol Succinate [Toprol XL] 25 mg PO DAILY 03/25/17 05/14/18 History Hydrocodone/Acetaminophen [Rudd 1 tab PO Q6H PRN 07/08/17 05/14/18 History 10-325] Methimazole [Tapazole] 5 mg PO DAILY 07/08/17 05/14/18 History Atorvastatin [Lipitor] 10 mg PO HS 09/20/17 05/13/18 History ALPRAZolam [Xanax] 0.5 mg PO DAILY PRN 03/06/18 05/13/18 History DULoxetine HCL [Cymbalta] 30 mg PO DAILY@0800 03/06/18 05/14/18 History Temazepam [Restoril] 15 mg PO HS 03/06/18 05/14/18 History Ondansetron HCl [Zofran] 4 mg PO DAILY 30 Days #30 tablet 03/08/18 05/14/18 Rx Ipratropium-Albuterol Nebulize 3 ml INHALATION QID #120 ampul.neb 03/23/1805/13 Rx [Duoneb 0.5 mg-3 mg/3 ml Soln] Cholecalciferol [Vitamin D3] 1,000 unit PO W/SUPPER 05/14/18 05/14/18 History Ferrous Sulfate [Iron (65 MG 325 mg PO W/SUPPER 05/14/18 05/14/18 History Elemental)] Loperamide [Imodium] 2 mg PO DAILY PRN 05/14/18 05/14/18 History Allergies Allergy/AdvReac Type Severity Reaction Status Date / Time Influenza Virus Vaccines Allergy Dyspnea Verified 05/14/18 08:34 hydromorphone [From Dilaudid] AdvReac Hallucinati Verified 05/14/18 08:34 ons Physical Exam Vitals: Vital Signs Temp Pulse Pulse Resp BP Pulse Ox 05/22/18 11:39 88 05/22/18 11:29 84 05/22/18 07:28 84 05/22/18 07:18 88 05/22/18 07:17 88 05/22/18 07:06 84 05/22/18 07:00 97.6 F 95 15 138/90 97 05/22/18 00:10 98.6 F 74 18 129/78 97 05/21/18 21:46 88 05/21/18 21:28 88 05/21/18 21:20 80 05/21/18 19:56 98.2 F 86 18 144/82 97 05/21/18 16:21 76 05/21/18 16:11 74 Intake and Output 05/22/18 05/22/18 05/22/18 06:59 14:59 22:59 Other: Voiding Method Bedside Commode # Voids 1 - Constitutional General appearance: no acute distress - EENT Eyes: EOMI, PERRLA ENT: NA/AT - Neck Neck: no lymphadenopathy - Respiratory Respiratory: right: CTA, left: rhonchi - Cardiovascular Rhythm: regular - Gastrointestinal General gastrointestinal: no tenderness - Integumentary Integumentary: no calor, no cellulitis - Neurologic Neurologic: CNII-XII intact - Musculoskeletal Musculoskeletal: strength equal bilaterally - Psychiatric Psychiatric: A&O x's 3, appropriate affect, intact judgment & insight Results CBC & Chem 7: 05/22/18 08:47 05/20/18 07:58 Labs: Abnormal Lab Results - Last 24 Hours (Table) 05/22/18 Range/Units 08:47 Hgb 11.3 L (11.4-16.0) gm/dL Microbiology - Last 24 Hours (Table) 05/18/18 18:46 Blood Culture - Preliminary Blood No Growth after [address] scan - abdomen: report reviewed, image reviewed CT scan - chest: report reviewed, image reviewed MRI - head: report reviewed Assessment and Plan Plan: 1. New diagnosis small cell lung cancer (appears limited stage): The patient is unfortunately familiar with small-cell lung cancer as her 7 months after diagnosis of the same. She initially seemed reluctant to undergo treatment, however I did explain she was likely to have further left lung collapse in the very near future without any treatment. She has been set- up for outpatient follow-up in our clinic in Tuesday (her request - she could have been seen sooner). I explained our recommendation of chemoradiation concurrently. I also discussed that treatment should begin relatively quickly so that her pulmonary status doesn't deteriorate any further. 2. Dyspnea on exertion: 07/29 #1. Patient will be initiated on chemoradiation hopefully in the coming week - she would like to speak to her family a bit first. Time with Patient: Greater than 30
== END 2018-05-22 16:00 | disposition home or self-care (01) | DRG 180 ==
LOC: EC 20:58 → 2SICU 22:52 → 4MS4W 05-15 13:31 → 2SICU 05-17 13:01 → 4SSUR 05-17 14:12
PROVIDERS: ADMIT Hospitalist; ATTEND Hospitalist
PROC: 5A09357 Assistance with Respiratory Ventilation, Less than 24 Consecutive Hours, Continuous Positive Airway Pressure (ICD-10-PCS; principal; 2018-05-13)
PROC: 0B7 Respiratory System, Dilation (ICD-10-PCS; 2018-05-17)
PROC: 0BJ08ZZ Inspection of Tracheobronchial Tree, Via Natural or Artificial Opening Endoscopic (ICD-10-PCS; 2018-05-17)
PROC: 0BB78ZX Excision of Left Main Bronchus, Via Natural or Artificial Opening Endoscopic, Diagnostic (ICD-10-PCS; 2018-05-17 12:30)
DX: C34.02 Malignant neoplasm of left main bronchus (principal); J96.21 Acute and chronic respiratory failure with hypoxia; J44.1 Chronic obstructive pulmonary disease with (acute) exacerbation; J98.11 Atelectasis; M48.54XA Collapsed vertebra, not elsewhere classified, thoracic region, initial encounter for fracture; Z87.891 Personal history of nicotine dependence; E05.20 Thyrotoxicosis with toxic multinodular goiter without thyrotoxic crisis or storm; E78.5 Hyperlipidemia, unspecified; F32.9 Major depressive disorder, single episode, unspecified; F41.1 Generalized anxiety disorder; F51.04 Psychophysiologic insomnia; H91.90 Unspecified hearing loss, unspecified ear; H93.13 Tinnitus, bilateral; I10 Essential (primary) hypertension; I71.2 Thoracic aortic aneurysm, without rupture; J98.09 Other diseases of bronchus, not elsewhere classified; K57.90 Diverticulosis of intestine, part unspecified, without perforation or abscess without bleeding; M19.90 Unspecified osteoarthritis, unspecified site; N20.0 Calculus of kidney; R13.10 Dysphagia, unspecified; T38.0X5A Adverse effect of glucocorticoids and synthetic analogues, initial encounter; D72.829 Elevated white blood cell count, unspecified; Z79.899 Other long term (current) drug therapy; Z80.0 Family history of malignant neoplasm of digestive organs; Z87.01 Personal history of pneumonia (recurrent); Z87.440 Personal history of urinary (tract) infections; Z90.5 Acquired absence of kidney; Z90.710 Acquired absence of both cervix and uterus; Z98.42 Cataract extraction status, left eye; Z98.41 Cataract extraction status, right eye; Z96.1 Presence of intraocular lens; Z99.81 Dependence on supplemental oxygen; Z88.5 Allergy status to narcotic agent; Z88.7 Allergy status to serum and vaccine; Z79.2 Long term (current) use of antibiotics; Z79.82 Long term (current) use of aspirin; Z79.51 Long term (current) use of inhaled steroids; G47.00 Insomnia, unspecified; Z86.010 Personal history of colon polyps; G89.29 Other chronic pain; M25.512 Pain in left shoulder; R59.0 Localized enlarged lymph nodes; R53.81 Other malaise
CPT/HCPCS: 31629; 31641; 36415; 70553; 71045; 71046; 71275; 74178; 78306; 80048; 80053; 83036; 83605; 83735; 83880; 84100; 84132; 84484; 85025; 85027; 85610; 85730; 87040; 88173; 88305; 88341; 88342; 93005; 94640; 94660; 94760; 94762; 96374; 99285

== ENCOUNTER 2018-06-21 22:30 | Inpatient (IN) | payer MEDICARE ==
[2018-06-22] MEDS ORDERED: ACETAMINOPHEN TAB 325 MG TAB PO STA (00:02)
[2018-06-22 00:53] LABS: HCT 27.6 % (34.0-46.0); MCH 27.3 pg (25.0-35.0); MCHC 32.4 g/dL (31.0-37.0); MCV 84.2 fL (80.0-100.0); Mean Platelet Volume 7.3; RBC 3.28 m/uL (3.80-5.40); RDW 14.5 % (11.5-15.5); WBC 12.4 k/uL (3.8-10.6)
--- NOTE | 2018-06-22 00:58 | XR ---
EXAMINATION TYPE: XR chest 2V DATE OF EXAM: 06/22/2018 COMPARISON: 06/12/2018 HISTORY: Vomiting TECHNIQUE: Frontal and lateral views of the chest are obtained. FINDINGS: There is no heart failure nor confluent pneumonic infiltrate. There is some interstitial r eticular density in the lower lung gee consistent with scarring. Thoracic aorta is atheromatous. T here is a plate fixing the left clavicle. There is mild flattening of the diaphragm. There is osteope perry and compression deformity of several thoracic vertebra. IMPRESSION: COPD and pulmonary fibrosis. No heart failure. There is new minimal atelectasis left tejal g base compared to recent exam.
[2018-06-22 01:03] LABS: Albumin 3.2 g/dL (3.5-5.0); Calcium 8.7 mg/dL (8.4-10.2); Potassium 3.2 mmol/L (3.5-5.1); Total Bilirubin 0.8 mg/dL (0.2-1.3); Total Protein 5.6 g/dL (6.3-8.2)
[2018-06-22 01:16] LABS: Creatine Kinase <20 U/L (30-135)
[2018-06-22 01:21] LABS: Band Neutrophils % 18 %; Eosinophils # (M) 0.12 k/uL (0-0.7); Lymphocytes # (M) 0.37 k/uL (1.0-4.8); Metamyelocytes % 4 %; Monocytes # (M) 0.99 k/uL (0-1.0); Neutrophils % (M) 66 %; Nucleated Red Blood Cells 0 /100 WBC (0-0); Total Cells Counted 200
[2018-06-22 01:23] LABS: Platelet Count 72 k/uL (150-450)
[2018-06-22 01:27] LABS: Creatine Kinase MB <0.2 ng/mL (0.0-2.4)
[2018-06-22 01:30] LABS: Troponin I <0.012 ng/mL (0.000-0.034)
--- NOTE | 2018-06-22 01:40 | ED ---
SOB HPI - General Chief Complaint: Shortness of Breath Stated Complaint: MAYELIN Time Seen by Provider: 06/22/18 00:36 Source: patient, EMS Mode of arrival: EMS Limitations: no limitations - History of Present Illness Initial Comments: 's patient is 68-year-old woman who presents with complaint that she has been having a cough, shortness of breath, a feeling like her throat was closing, and fever. The patient did recently have radiation therapy started for malignancy. MD Complaint: shortness of breath, cough -: hour(s) Severity: moderate Consistency: constant Improves With: nothing Known History Of: other (Cancer) Associated Symptoms: fever, cough - Related Data Home Medications Medication Instructions Recorded Confirmed Aspirin EC [Ecotrin Low Dose] 81 mg PO DAILY 10/22/14 05/14/18 Budesonide [Pulmicort] 1 mg INHALATION RT-BID@1000,1400 10/22/14 05/13/18 Albuterol Nebulized [Ventolin 2.5 mg INHALATION 03/25/17 05/14/18 Nebulized] RT-QID@08,,, Albuterol Sulfate [Proair Hfa] 2 puff INHALATION RT-QID PRN 03/25/17 05/14/18 Arformoterol Tartrate [Brovana] 15 mcg INHALATION RT-BID@0800,1700 03/25/17 Calcium Carbonate/Vitamin D3 1 tab PO DAILY@1700 03/25/17 05/14/18 [Calcium 600-Vit D3 200 Tablet] DULoxetine HCL [Cymbalta] 60 mg PO DAILY@0800 03/25/17 05/14/18 Metoprolol Succinate [Toprol XL] 25 mg PO DAILY 03/25/17 05/14/18 Hydrocodone/Acetaminophen [[place] 1 tab PO Q6H PRN 07/08/17 05/14/18 10-325] Methimazole [Tapazole] 5 mg PO DAILY 07/08/17 05/14/18 Atorvastatin [Lipitor] 10 mg PO HS 09/20/17 05/13/18 ALPRAZolam [Xanax] 0.5 mg PO DAILY PRN 03/06/18 05/13/18 DULoxetine HCL [Cymbalta] 30 mg PO DAILY@0800 03/06/18 05/14/18 Temazepam [Restoril] 15 mg PO HS 03/06/18 05/14/18 Cholecalciferol [Vitamin D3] 1,000 unit PO W/SUPPER 05/14/18 05/14/18 Ferrous Sulfate [Iron (65 MG 325 mg PO W/SUPPER 05/14/18 05/14/18 Elemental)] Loperamide [Imodium] 2 mg PO DAILY PRN 05/14/18 05/14/18 Previous Rx's Medication Instructions Recorded Ondansetron HCl [Zofran] 4 mg PO DAILY 30 Days #30 tablet 03/08/18 Ipratropium-Albuterol Nebulize 3 ml INHALATION QID #120 ampul.neb 03/23/18 [Duoneb 0.5 mg-3 mg/3 ml Soln] Allergies Allergy/AdvReac Type Severity Reaction Status Date / Time Influenza Virus Vaccines Allergy Dyspnea Verified 06/21/18 23:12 hydromorphone [From Dilaudid] AdvReac Hallucinati Verified 06/21/18 23:12 ons Review of Systems ROS Statement: Those systems with pertinent positive or pertinent negative responses have been documented in the HPI. ROS Other: All systems not noted in ROS Statement are negative. Constitutional: Reports: fever, chills ENT: Reports: throat pain Respiratory: Reports: cough, dyspnea. Denies: wheezes, hemoptysis Cardiovascular: Denies: chest pain, palpitations, edema, syncope Gastrointestinal: Denies: abdominal pain, vomiting, diarrhea Genitourinary: Denies: dysuria, hematuria Musculoskeletal: Denies: back pain Skin: Denies: rash Neurological: Denies: headache, weakness, numbness Past Medical History Past Medical History: Asthma, COPD, Hypertension, Pneumonia, Thyroid Disorder Additional Past Medical History / Comment(s): recent UTI-now resolved, 2016 resp arrest, on vent here FEB 2017-resp. failure-on vent. in [place] visiting 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 polypectomy bleed and was in ICU, Graves disease, AAA found in June 2012 - has been stable since then. throat cancer History of Any Multi-Drug Resistant Organisms: None Reported Past Surgical History: Cholecystectomy, Hysterectomy, Orthopedic Surgery Additional Past Surgical History / Comment(s): R nephrectomy, 2012 laparotomy with lysis of adhesions from kidney surgery causing bowel obstruction. L shoulder and collar bone surgery, colonoscopy with polypectomy, cataract surg- lens implants. AAA, Past Anesthesia/Blood Transfusion Reactions: No Reported Reaction Additional Past Anesthesia/Blood Transfusion Reaction / Comment(s): Pt has never received blood. Past Psychological History: Depression Smoking Status: Former smoker Past Alcohol Use History: None Reported Past Drug Use History: None Reported - Past Family History Father Family Medical History: Cancer Additional Family Medical History / Comment(s): Pancreatic cancer and passed when he was 58 Mother Family Medical History: No Reported History Additional Family Medical History / Comment(s): None General Exam Limitations: no limitations General appearance: alert, in no apparent distress Head exam: Present: atraumatic, normocephalic Eye exam: Present: normal appearance. Absent: scleral icterus, conjunctival injection ENT exam: Present: normal oropharynx Respiratory exam: Present: wheezes. Absent: respiratory distress, rales, rhonchi, stridor Cardiovascular Exam: Present: tachycardia, normal heart sounds. Absent: systolic murmur, diastolic murmur, rubs, gallop GI/Abdominal exam: Present: soft. Absent: distended, tenderness, guarding, rebound Extremities exam: Present: normal inspection, normal capillary refill. Absent: pedal edema, calf tenderness Back exam: Present: normal inspection. Absent: CVA tenderness (R), CVA tenderness (L) Neurological exam: Present: alert Skin exam: Present: warm, dry, intact, normal color. Absent: rash Course Vital Signs 06/21/18 06/21/18 06/21/18 22:35 22:37 23:00 Temperature 100.4 F H Pulse Rate 107 H Respiratory 20 Rate Blood Pressure 146/92 146/92 146/92 O2 Sat by Pulse 96 94 L Oximetry 06/21/18 06/22/18 06/22/18 23:05 00:00 00:02 Temperature 101.1 F H Pulse Rate Respiratory 18 Rate Blood Pressure 143/109 O2 Sat by Pulse Oximetry 06/22/18 06/22/18 06/22/18 00:19 00:51 01:00 Temperature 99.3 F Pulse Rate 98 98 95 Respiratory 18 18 22 Rate Blood Pressure 139/99 138/91 138/91 O2 Sat by Pulse 96 96 98 Oximetry 06/22/18 06/22/18 06/22/18 01:37 02:00 03:00 Temperature Pulse Rate 94 91 90 Respiratory 18 20 20 Rate Blood Pressure 162/91 162/91 151/90 O2 Sat by Pulse 98 99 97 Oximetry 06/22/18 06/22/18 06/22/18 04:00 05:00 06:00 Temperature Pulse Rate 87 90 80 Respiratory 21 14 20 Rate Blood Pressure 156/92 117/79 117/80 O2 Sat by Pulse 98 92 L 99 Oximetry Medical Decision Making - Lab Data Result diagrams: 06/22/18 00:16 06/22/18 00:16 Lab Results 06/22/18 06/22/18 06/22/18 Range/Units 00:16 00:16 00:16 WBC 12.4 H (3.8-10.6) k/uL RBC 3.28 L (3.80-5.40) m/uL Hgb 9.0 L D (11.4-16.0) gm/dL Hct 27.6 L (34.0-46.0) % MCV 84.2 (80.0-100.0) fL MCH 27.3 (25.0-35.0) pg MCHC 32.4 (31.0-37.0) g/dL RDW 14.5 (11.5-15.5) % Plt Count 72 L D (150-450) k/uL Neutrophils % (Manual) 66 % Band Neutrophils % 18 % Lymphocytes % (Manual) 3 % Monocytes % (Manual) 8 % Eosinophils % (Manual) 1 % Metamyelocytes % 4 % Neutrophils # (Manual) 10.40 H (1.3-7.7) k/uL Lymphocytes # (Manual) 0.37 L (1.0-4.8) k/uL Monocytes # (Manual) 0.99 (0-1.0) k/uL Eosinophils # (Manual) 0.12 (0-0.7) k/uL Metamyelocytes # (Man) 0.50 H (0) k/uL Nucleated RBCs 0 (0-0) /100 WBC Manual Slide Review Performed Sodium 137 (137-145) mmol/L Potassium 3.2 L (3.5-5.1) mmol/L Chloride 97 L (98-107) mmol/L Carbon Dioxide 32 H (22-30) mmol/L Anion Gap 8 mmol/L BUN 17 (7-17) mg/dL Creatinine 0.96 (0.52-1.04) mg/dL Est GFR (CKD-EPI)AfAm 71 (>60 ml/min/1.73 sqM) Est GFR (CKD-EPI)NonAf 62 (>60 ml/min/1.73 sqM) Glucose 101 H (74-99) mg/dL Plasma Lactic Acid [place] (0.7-2.0) mmol/L Calcium 8.7 (8.4-10.2) mg/dL Total Bilirubin 0.8 (0.2-1.3) mg/dL AST 13 L (14-36) U/L ALT 22 (9-52) U/L Alkaline Phosphatase 98 (38-126) U/L Total Creatine Kinase <20 L (30-135) U/L CK-MB (CK-2) <0.2 (0.0-2.4) ng/mL CK-MB (CK-2) Rel Index Troponin I <0.012 (0.000-0.034) ng/mL Total Protein 5.6 L (6.3-8.2) g/dL Albumin 3.2 L (3.5-5.0) g/dL Urine Color Urine Appearance (Clear) Urine pH (5.0-8.0) Ur Specific [place] (1.001-1.035) Urine Protein (Negative) Urine Glucose (UA) (Negative) Urine Ketones (Negative) Urine Blood (Negative) Urine Nitrite (Negative) Urine Bilirubin (Negative) Urine Urobilinogen (<2.0) mg/dL Ur Leukocyte Esterase (Negative) Urine WBC (0-5) /hpf Ur Squamous Epith Cells (0-4) /hpf Urine Bacteria (None) /hpf Urine Mucus (None) /hpf 06/22/18 06/22/18 Range/Units 00:16 04:50 WBC (3.8-10.6) k/uL RBC (3.80-5.40) m/uL Hgb (11.4-16.0) gm/dL Hct (34.0-46.0) % MCV (80.0-100.0) fL MCH (25.0-35.0) pg MCHC (31.0-37.0) g/dL RDW (11.5-15.5) % Plt Count (150-450) k/uL Neutrophils % (Manual) % Band Neutrophils % % Lymphocytes % (Manual) % Monocytes % (Manual) % Eosinophils % (Manual) % Metamyelocytes % % Neutrophils # (Manual) (1.3-7.7) k/uL Lymphocytes # (Manual) (1.0-4.8) k/uL Monocytes # (Manual) (0-1.0) k/uL Eosinophils # (Manual) (0-0.7) k/uL Metamyelocytes # (Man) (0) k/uL Nucleated RBCs (0-0) /100 WBC Manual Slide Review Sodium (137-145) mmol/L Potassium (3.5-5.1) mmol/L Chloride (98-107) mmol/L Carbon Dioxide (22-30) mmol/L Anion Gap mmol/L BUN (7-17) mg/dL Creatinine (0.52-1.04) mg/dL Est GFR (CKD-EPI)AfAm (>60 ml/min/1.73 sqM) Est GFR (CKD-EPI)NonAf (>60 ml/min/1.73 sqM) Glucose (74-99) mg/dL Plasma Lactic Acid [place] 0.9 (0.7-2.0) mmol/L Calcium (8.4-10.2) mg/dL Total Bilirubin (0.2-1.3) mg/dL AST (14-36) U/L ALT (9-52) U/L Alkaline Phosphatase (38-126) U/L Total Creatine Kinase (30-135) U/L CK-MB (CK-2) (0.0-2.4) ng/mL CK-MB (CK-2) Rel Index Troponin I (0.000-0.034) ng/mL Total Protein (6.3-8.2) g/dL Albumin (3.5-5.0) g/dL Urine Color Yellow Urine Appearance Cloudy H (Clear) Urine pH 7.0 (5.0-8.0) Ur Specific [place] 1.008 (1.001-1.035) Urine Protein Trace H (Negative) Urine Glucose (UA) Negative (Negative) Urine Ketones Negative (Negative) Urine Blood Negative (Negative) Urine Nitrite Negative (Negative) Urine Bilirubin Negative (Negative) Urine Urobilinogen <2.0 (<2.0) mg/dL Ur Leukocyte Esterase Negative (Negative) Urine WBC 4 (0-5) /hpf Ur Squamous Epith Cells <1 (0-4) /hpf Urine Bacteria Occasional H (None) /hpf Urine Mucus Rare H (None) /hpf - EKG Data -: EKG Interpreted by Me EKG shows normal: sinus rhythm, axis (Normal), intervals (Normal), QRS complexes (Normal), ST-T waves (Normal) Rate: normal Interpretation: normal EKG Disposition Clinical Impression: HCAP (healthcare-associated pneumonia) Disposition: ADMITTED IP TO THIS [facility] Condition: Fair Is patient prescribed a controlled substance at d/c from ED?: No Referrals: Chris Lopez DO [Primary Care Provider] - 1-2 days
[2018-06-22] MEDS ORDERED: PIPERACILLIN-TAZOBACTAM 3.375 GM in SODIUM CHLORIDE 0.9% 100 ML IVPB STA (02:40)
[2018-06-22] MEDS ORDERED: LEVOFLOXACIN 750MG-D5W PMX 750 MG in DEXTROSE/WATER 1 150ML.BAG IVPB STA (02:40)
[2018-06-22 05:37] LABS: Appearance,Urine Cloudy (Clear); Bacteria,Urine Occasional /hpf; Bilirubin,Urine Negative (Negative); Blood,Urine Negative (Negative); Color,Urine Yellow; Glucose,Urine (UA) Negative (Negative); Ketones,Urine Negative (Negative); Leukocyte Esterase,Urine Negative (Negative); Mucus,Urine Rare /hpf; Nitrite,Urine Negative (Negative); Protein,Urine Trace (Negative); Specific Gravity,Urine 1.008 (1.001-1.035); Squamous Epithelial Cell,Urine <1 /hpf (0-4); Urobilinogen,Urine <2.0 mg/dL (<2.0); WBC,Urine 4 /hpf (0-5)
[2018-06-22] MEDS ORDERED: PNEUMONIA PROTOCOL UTILIZED 1 EACH MISC PO PRN (05:47)
[2018-06-22] MEDS ORDERED: TRIMETHOBENZAMIDE 300 MG CAP PO PRN (10:35)
--- NOTE | 2018-06-22 10:39 | P.HPIM ---
History of Present Illness This is a pleasant 68 years old female with past medical history of COPD, hypertension, hypothyroidism, oxygen dependent on 3 L NC, status post total nephrectomy for donation with stable renal function thoracic aortic aneurysm, nephrolithiasis, hypertension and hyperlipidemia, multinodular goiter on methimazole patient was recently diagnosed with small cell lung cancer with no evidence of metastatic disease was found during last admission, patient has multiple admission due to COPD exacerbation. Now presents with worsening progressive dyspnea with cough and clear phlegm over one to 2 days associated with epigastric pain and tenderness and vomiting about 3-4 times per day for the last 1 or 2 days however she denies any blood in it. On admission her Vitas looks stable, she has mild leukocytosis, creatinine is normal 0.9 and urinalysis is negative for infection. She has positive blood culture for micrococcus species but this is an old one from 05/13/2018: COPD and pulmonary fibrosis. EKG showing normal sinus rhythm with no significant ST T changes, QTC 454. Patient was started on Zosyn and Levaquin. Review of Systems CONSTITUTIONAL: No fever, no malaise, no fatigue. HEENT: No recent visual problems or hearing problems. Denied any sore throat. CARDIOVASCULAR: No orthopnea, PND, no palpitations, no syncope. PULMONARY: No shortness of breath, no cough, no hemoptysis. GASTROINTESTINAL: No diarrhea, no nausea, no vomiting, no abdominal pain. Normoactive bowel sounds. NEUROLOGICAL: No headaches, no weakness, no numbness. HEMATOLOGICAL: Denies any bleeding or petechiae. GENITOURINARY: Denies any burning micturition, frequency, or urgency. MUSCULOSKELETAL/RHEUMATOLOGICAL: Denies any joint pain, swelling, or any muscle pain. ENDOCRINE: Denies any polyuria or polydipsia. Past Medical History Past Medical History: Asthma, COPD, Hypertension, Pneumonia, Thyroid Disorder Additional Past Medical History / Comment(s): recent UTI-now resolved, 2016 resp arrest, on vent here FEB 2017-resp. failure-on vent. in [place] visiting brother-[facility] rehab after, O2 dependent- 3L/NC continuously, pneumonia 2010, acute trachebronchitis, chronic lt shoulder pain, DJD, bowel obstruction , donated R kidney to son, post colonoscopy with. polypectomy bleed and was in ICU, Graves disease, AAA found in June 2012 - has been stable since then. throat cancer History of Any Multi-Drug Resistant Organisms: None Reported Past Surgical History: Cholecystectomy, Hysterectomy, Orthopedic Surgery Additional Past Surgical History / Comment(s): R nephrectomy, 2011 laparotomy with lysis of adhesions from kidney surgery causing bowel obstruction. L shoulder and collar bone surgery, colonoscopy with polypectomy, cataract surg- lens implants. AAA, Past Anesthesia/Blood Transfusion Reactions: No Reported Reaction Additional Past Anesthesia/Blood Transfusion Reaction / Comment(s): Pt has never received blood. Past Psychological History: Depression Smoking Status: Former smoker Past Alcohol Use History: None Reported Past Drug Use History: None Reported - Past Family History Father Family Medical History: Cancer Additional Family Medical History / Comment(s): Pancreatic cancer and passed when he was 58 Mother Family Medical History: No Reported History Additional Family Medical History / Comment(s): None Medications and Allergies Home Medications Medication Instructions Recorded Confirmed Type DULoxetine HCL [Cymbalta] 60 mg PO DAILY@0800 03/25/17 06/22/18 History Metoprolol Succinate [Toprol XL] 25 mg PO DAILY 03/25/17 06/22/18 History Hydrocodone/Acetaminophen [[place] 1 tab PO Q6H PRN 07/08/17 06/22/18 History 10-325] Atorvastatin [Lipitor] 10 mg PO HS 09/20/17 06/22/18 History DULoxetine HCL [Cymbalta] 30 mg PO DAILY@0800 03/06/18 06/22/18 History Cholecalciferol [Vitamin D3] 1,000 unit PO DAILY 05/14/18 06/22/18 History Loperamide [Imodium] 2 mg PO DAILY PRN 05/14/18 06/22/18 History Ipratropium-Albuterol Nebulize 3 ml INHALATION RT-QID 06/22/18 06/22/18 History [Duoneb 0.5 mg-3 mg/3 ml Soln] Allergies Allergy/AdvReac Type Severity Reaction Status Date / Time Influenza Virus Vaccines Allergy Dyspnea Verified 06/22/18 09:13 hydromorphone [From Dilaudid] AdvReac Hallucinati Verified 06/22/18 09:13 ons Physical Exam Vitals: Vital Signs Temp Pulse Resp BP Pulse Ox 06/22/18 06:00 80 20 117/80 99 12/27/18 05:00 90 14 117/79 92 L 06/22/18 04:00 87 21 156/92 98 06/22/18 03:00 90 20 151/90 97 06/22/18 02:00 91 20 162/91 99 06/22/18 01:37 94 18 162/91 98 06/22/18 01:00 95 22 138/91 98 06/22/18 00:51 99.3 F 98 18 138/91 96 06/22/18 00:19 98 18 139/99 96 06/22/18 00:02 101.1 F H 06/22/18 00:00 143/109 06/21/18 23:05 18 06/21/18 23:00 146/92 06/21/18 22:37 146/92 94 L 06/21/18 22:35 100.4 F H 107 H 20 146/92 96 Intake and Output 06/21/18 06/22/18 06/22/18 22:59 06:59 14:59 Other: Weight 55.338 kg GENERAL: The patient is alert and oriented x3, not in any acute distress. Well developed, well nourished. HEENT: Pupils are round and equally reacting to light. EOMI. No scleral icterus. No conjunctival pallor. Normocephalic, atraumatic. No pharyngeal erythema. No thyromegaly. CARDIOVASCULAR: S1 and S2 present. No murmurs, rubs, or gallops. -PULMONARY: Chest is clear to auscultation, scattered wheezing both sides -ABDOMEN: Soft, epigastric tenderness, no rebound tenderness nondistended, normoactive bowel sounds. No palpable organomegaly. MUSCULOSKELETAL: No joint swelling or deformity. EXTREMITIES: No cyanosis, clubbing, or pedal edema. NEUROLOGICAL: Gross neurological examination did not reveal any focal deficits. SKIN: No rashes. Results CBC & Chem 7: 06/22/18 00:16 06/22/18 00:16 Labs: Abnormal Lab Results - Last 24 Hours (Table) 06/22/18 06/22/18 06/22/18 Range/Units 00:16 00:16 00:16 WBC 12.4 H (3.8-10.6) k/uL RBC 3.28 L (3.80-5.40) m/uL Hgb 9.0 L D (11.4-16.0) gm/dL Hct 27.6 L (34.0-46.0) % Plt Count 72 L D (150-450) k/uL Neutrophils # (Manual) 10.40 H (1.3-7.7) k/uL Lymphocytes # (Manual) 0.37 L (1.0-4.8) k/uL Metamyelocytes # (Man) 0.50 H (0) k/uL Potassium 3.2 L (3.5-5.1) mmol/L Chloride 97 L (98-107) mmol/L Carbon Dioxide 32 H (22-30) mmol/L Glucose 101 H (74-99) mg/dL AST 13 L (14-36) U/L Total Creatine Kinase <20 L (30-135) U/L Total Protein 5.6 L (6.3-8.2) g/dL Albumin 3.2 L (3.5-5.0) g/dL Urine Appearance (Clear) Urine Protein (Negative) Urine Bacteria (None) /hpf Urine Mucus (None) /hpf 06/22/18 Range/Units 04:50 WBC (3.8-10.6) k/uL RBC (3.80-5.40) m/uL Hgb (11.4-16.0) gm/dL Hct (34.0-46.0) % Plt Count (150-450) k/uL Neutrophils # (Manual) (1.3-7.7) k/uL Lymphocytes # (Manual) (1.0-4.8) k/uL Metamyelocytes # (Man) (0) k/uL Potassium (3.5-5.1) mmol/L Chloride (98-107) mmol/L Carbon Dioxide (22-30) mmol/L Glucose (74-99) mg/dL AST (14-36) U/L Total Creatine Kinase (30-135) U/L Total Protein (6.3-8.2) g/dL Albumin (3.5-5.0) g/dL Urine Appearance Cloudy H (Clear) Urine Protein Trace H (Negative) Urine Bacteria Occasional H (None) /hpf Urine Mucus Rare H (None) /hpf Assessment and Plan Assessment: Acute COPD exacerbation history of COPD, oxygen dependent at 3 L nasal cannula oxygen Recently diagnosed small cell lung cancer Upper abdominal pain and vomiting. Essential hypertension History of hypothyroidism History of multinodular goiter on methimazole Status post total nephrectomy for donation Thoracic aortic aneurysm Nephrolithiasis Hyperlipidemia Plan: This is a pleasant 68 years old female who presents because of COPD exacerbation. Continue with steroids, breathing treatment, oxygen. Call pulmonary consult. Abdominal x-ray. We'll check influenza. Labs and medication were reviewed.. Continue same treatment. Continue with symptomatic treatment. Resume home medication. Monitor lytes and vitals. DVT and GI prophylaxis. Further recommendations of the clinical course of the patient DVT prophylaxis: Subcutaneous heparin GI Prophylaxis: Protonix PT/OT: Pending Prognosis is guarded
--- NOTE | 2018-06-22 11:03 | XR ---
EXAMINATION TYPE: XR abdomen 1V DATE OF EXAM: 06/22/2018 CLINICAL DATA: 68-year-old female with abdominal pain and vomiting, PHH COMPARISON: None FINDINGS: Possible trace effusions. Some patchy left basilar density is noted at the periphery. No evidence for free intraperitoneal air. Scattered colonic air is present [id number] stool on the left side. A couple prominent small [place] wel loops in the right mid abdomen measure up to 3.0 cm. No differential air-fluid levels seen. IMPRESSION: 1. Nonspecific bowel gas pattern. Couple of mildly distended small bowel loops in the right mid abdom en are noted. Overall nonobstructive pattern at this time. Findings could represent a regional ileus/ enteritis or early obstructive changes. Short interval follow-up can be performed. 2. Possible trace effusions. Some patchy left basilar atelectasis or infiltrate.
[2018-06-22] MEDS: PANTOPRAZOLE 40 MG TABLET PO SCH ×2 (15:42→17:56)
[2018-06-22] MEDS: PIPERACILLIN-TAZOBACTAM 3.375 GM in SODIUM CHLORIDE 0.9% 100 ML IVPB SCH ×2 (15:48→22:12)
[2018-06-22] MEDS ORDERED: POTASSIUM CHLORIDE 2 MEQ/ML 20 ML VIAL IVPB ONE (18:00)
[2018-06-22] MEDS ORDERED: POTASSIUM CHLORIDE 20 MEQ in WATER FOR INJECTION 1 100ML.BAG IVPB ONE (18:00)
[2018-06-22] MEDS ORDERED: Potassium Replacement Protocol 1 EACH MISC MISCELLANE PRN (19:31)
[2018-06-22] MEDS ORDERED: Magnesium Replacement Protocol 1 EACH MISC MISCELLANE PRN (19:35)
[2018-06-22] MEDS ORDERED: IPRATROPIUM-ALBUTEROL 3 ML NEB INHALATION PRN (19:36)
[2018-06-22] MEDS: POTASSIUM CHLORIDE ER 20 MEQ TAB.ER PO SCH ×3 (20:10→22:12)
[2018-06-22] MEDS: IPRATROPIUM-ALBUTEROL 3 ML NEB INHALATION SCH (20:40)
--- NOTE | 2018-06-22 20:52 | P.CONS ---
History of Present Illness - Reason for Consult Consult date: 06/22/18 Recent Diagnosis Small Cell Lung Cancer Requesting physician: Femi E Sheet - Chief Complaint Shortness of breath - History of Present Illness Mrs. Kern is a very pleasant female pt seen on initial consult at [facility] on 05/15/18 for new lung mass when she presented with progressive SOB. She had CTA 05/14/18, negative for PE but incidentially a 6.9 x 6.1 x 8.9 cm left hilar mass was found, with collapse of the LLL, 1.4cm right hilar LN, 4cm right subcarinal LN mass, severe emphysema and granulomatous disease in the spleen. On 05/17/18 she had bronch and biopsy with Dr. Sánchez, path positive for small cell lung cancer, staging CT AP (05/15) showed no other disease, bone scan (05/19) and brain MRI (05/19) were also negative. 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 She is seen in the office on 06/05/18 for 1st visit and chemo education. No acute changes in her health, O2 at 5L, her son is moving out as he "cannot handle" what is going on. She does have friend support. She started her first cycle of chemotherapy Caboplatin and Etoposide with neulasta 06/06/18-06/08/18. She presented to emergency department with fevers, chills, sore throat. She felt like her throat was swollen. He fever on admission hit a T max 101.1. She was mercado cultured which are still pending, chest xray did reveal pneumonia. She was started on antibiotics and fevers are improving. She was seen prior to transfer to oncology floor. She stated she is feeling better, still feeling weak. She admits to increased abdominal cramping and nausea, constipation Review of Systems A 14 point review of systems was assessed and completed all neg except HPI Past Medical History Past Medical History: Asthma, COPD, Hypertension, Pneumonia, Thyroid Disorder Additional Past Medical History / Comment(s): recent UTI-now resolved, 2016 resp arrest, on vent here FEB 2017-resp. failure-on vent. in [place] visiting brother-[facility] after, O2 dependent- 3L/NC continuously, pneumonia 2010, acute trachebronchitis, chronic lt shoulder pain, DJD, bowel obstruction , donated R kidney to son, post colonoscopy with. polypectomy bleed and was in ICU, Graves disease, AAA found in June 2012 - has been stable since then. throat cancer History of Any Multi-Drug Resistant Organisms: None Reported Past Surgical History: Cholecystectomy, Hysterectomy, Orthopedic Surgery Additional Past Surgical History / Comment(s): R nephrectomy, 2012 laparotomy with lysis of adhesions from kidney surgery causing bowel obstruction. L shoulder and collar bone surgery, colonoscopy with polypectomy, cataract surg- lens implants. AAA, Past Anesthesia/Blood Transfusion Reactions: No Reported Reaction Additional Past Anesthesia/Blood Transfusion Reaction / Comm: Pt has never received blood. Past Psychological History: Depression Smoking Status: Former smoker Past Alcohol Use History: None Reported Past Drug Use History: None Reported - Past Family History Father Family Medical History: Cancer Additional Family Medical History / Comment(s): Pancreatic cancer and passed when he was 58 Mother Family Medical History: No Reported History Additional Family Medical History / Comment(s): None Medications and Allergies Home Medications Medication Instructions Recorded Confirmed Type DULoxetine HCL [Cymbalta] 60 mg PO DAILY@0800 03/25/17 06/22/18 History Metoprolol Succinate [Toprol XL] 25 mg PO DAILY 03/25/17 06/22/18 History Hydrocodone/Acetaminophen [[place] 1 tab PO Q6H PRN 07/08/17 06/22/18 History 10-325] Atorvastatin [Lipitor] 10 mg PO HS 09/20/17 06/22/18 History DULoxetine HCL [Cymbalta] 30 mg PO DAILY@0800 03/06/18 06/22/18 History Cholecalciferol [Vitamin D3] 1,000 unit PO DAILY 05/14/18 06/22/18 History Loperamide [Imodium] 2 mg PO DAILY PRN 05/14/18 06/22/18 History Ipratropium-Albuterol Nebulize 3 ml INHALATION RT-QID 06/22/18 06/22/18 History [Duoneb 0.5 mg-3 mg/3 ml Soln] Allergies Allergy/AdvReac Type Severity Reaction Status Date / Time Influenza Virus Vaccines Allergy Dyspnea Verified 06/22/18 09:13 hydromorphone [From Dilaudid] AdvReac Hallucinati Verified 06/22/18 09:13 ons Physical Exam Vitals: Vital Signs Temp Pulse Resp BP Pulse Ox 06/22/18 13:00 93 34 H 122/79 96 06/22/18 10:57 98.6 F 86 18 147/84 99 06/22/18 06:00 80 20 117/80 99 06/22/18 05:00 90 14 117/79 92 L 06/22/18 04:00 87 21 156/92 98 06/22/18 03:00 90 20 151/90 97 06/22/18 02:00 91 20 162/91 99 06/22/18 01:37 94 18 162/91 98 06/22/18 01:00 95 22 138/91 98 06/22/18 00:51 99.3 F 98 18 138/91 96 06/22/18 00:19 98 18 139/99 96 06/22/18 00:02 101.1 F H 06/22/18 00:00 143/109 06/21/18 23:05 18 06/21/18 23:00 146/92 06/21/18 22:37 146/92 94 L 06/21/18 22:35 100.4 F H 107 H 20 146/92 96 Intake and Output 06/21/18 06/22/18 06/22/18 22:59 06:59 14:59 Other: Weight 55.338 kg Gen: alert, in no apparent distress Head: atraumatic, normocephalic Eyes no scleral icterus, EOMI ENT: Posterior pharynx erythema and mild thrush Respiratory: Mild increased effort, expiratory wheezes. Cardio: tachycardia, normal heart sounds. GI: soft. non-distended, no-tenderness Ext: no nancy or calf tenderness Neurological: alert, cooperative, non-focal Skin exam: warm, dry, facial flushing, no rash Results CBC & Chem 7: 06/22/18 00:16 06/22/18 00:16 Labs: Abnormal Lab Results - Last 24 Hours (Table) 06/22/18 06/22/18 06/22/18 Range/Units 00:16 00:16 00:16 WBC 12.4 H (3.8-10.6) k/uL RBC 3.28 L (3.80-5.40) m/uL Hgb 9.0 L D (11.4-16.0) gm/dL Hct 27.6 L (34.0-46.0) % Plt Count 72 L D (150-450) k/uL Neutrophils # (Manual) 10.40 H (1.3-7.7) k/uL Lymphocytes # (Manual) 0.37 L (1.0-4.8) k/uL Metamyelocytes # (Man) 0.50 H (0) k/uL Potassium 3.2 L (3.5-5.1) mmol/L Chloride 97 L (98-107) mmol/L Carbon Dioxide 32 H (22-30) mmol/L Glucose 101 H (74-99) mg/dL AST 13 L (14-36) U/L Total Creatine Kinase <20 L (30-135) U/L Total Protein 5.6 L (6.3-8.2) g/dL Albumin 3.2 L (3.5-5.0) g/dL Urine Appearance (Clear) Urine Protein (Negative) Urine Bacteria (None) /hpf Urine Mucus (None) /hpf 06/22/18 Range/Units 04:50 WBC (3.8-10.6) k/uL RBC (3.80-5.40) m/uL Hgb (11.4-16.0) gm/dL Hct (34.0-46.0) % Plt Count (150-450) k/uL Neutrophils # (Manual) (1.3-7.7) k/uL Lymphocytes # (Manual) (1.0-4.8) k/uL Metamyelocytes # (Man) (0) k/uL Potassium (3.5-5.1) mmol/L Chloride (98-107) mmol/L Carbon Dioxide (22-30) mmol/L Glucose (74-99) mg/dL AST (14-36) U/L Total Creatine Kinase (30-135) U/L Total Protein (6.3-8.2) g/dL Albumin (3.5-5.0) g/dL Urine Appearance Cloudy H (Clear) Urine Protein Trace H (Negative) Urine Bacteria Occasional H (None) /hpf Urine Mucus Rare H (None) /hpf Chest x-ray: report reviewed Abdominal x-ray: report reviewed Assessment and Plan (1) Small cell lung cancer Narrative/Plan: - Status Post Cycle one of chemotherapy with Neulasta, 06/08/18 - Chemotherapy crrently on hold until resolution of acute problems, infection. Current Visit: Yes Status: Acute Code(s): C34.90 - MALIGNANT NEOPLASM OF UNSP PART OF UNSP BRONCHUS OR LUNG SNOMED Code(s): 949876165 (2) HCAP (healthcare-associated pneumonia) Narrative/Plan: - Fevers improving - Pulmonary following - IV antibiotics - Awaiting full mercado culture wor-up Current Visit: Yes Status: Acute Code(s): J18.9 - PNEUMONIA, UNSPECIFIED ORGANISM SNOMED Code(s): 327896435 (3) Acute exacerbation of chronic obstructive airways disease Current Visit: No Status: Acute Code(s): J44.1 - CHRONIC OBSTRUCTIVE PULMONARY DISEASE W (ACUTE) EXACERBATION SNOMED Code(s): 514825251 (4) Oxygen dependent Narrative/Plan: - 4-5L at home Current Visit: Yes Status: Acute Code(s): Z99.81 - DEPENDENCE ON SUPPLEMENTAL OXYGEN SNOMED Code(s): 900302479133 (5) Nausea & vomiting Narrative/Plan: - Reviewed abdominal xray, concern for possible ileus - Bowel Rest - Bowel Regimen - GI recs are resonable Current Visit: Yes Status: Acute Code(s): R11.2 - NAUSEA WITH VOMITING, UNSPECIFIED SNOMED Code(s): 06977895 (6) Fever Narrative/Plan: - Improved since admission - Monitor closely Current Visit: Yes Status: Acute Code(s): R50.9 - FEVER, UNSPECIFIED SNOMED Code(s): 371452105 (7) Leukocytosis Narrative/Plan: - Multifactoral: - Infection (Acute), Steroids, and Recent Neulasta Current Visit: Yes Status: Acute Code(s): D72.829 - ELEVATED WHITE BLOOD CELL COUNT, UNSPECIFIED SNOMED Code(s): 528137681 (8) Normocytic anemia Narrative/Plan: - Secondary to chemotherapy - No transfusion indicated at this time, transfuse less than 7 - Continue to monitor daily CBC Current Visit: Yes Status: Acute Code(s): D64.9 - ANEMIA, UNSPECIFIED SNOMED Code(s): 504702421 (9) Thrombocytopenia Narrative/Plan: - Secondary to chemotherapy - Platlet Count stable as above 50K at this time - Transfuse less than 15K in chemo induced, febrile patient Current Visit: Yes Status: Acute Code(s): D69.6 - THROMBOCYTOPENIA, UNSPECIFIED SNOMED Code(s): 626741257
[2018-06-22] MEDS: HEPARIN SODIUM,PORCINE 5,000 UNIT/ML 1 ML VIAL SQ SCH (22:12)
[2018-06-23 02:33] LABS: Magnesium 1.6 mg/dL (1.6-2.3); Potassium 3.7 mmol/L (3.5-5.1)
[2018-06-23] MEDS: PIPERACILLIN-TAZOBACTAM 3.375 GM in SODIUM CHLORIDE 0.9% 100 ML IVPB SCH ×2 (05:19→15:05)
[2018-06-23] MEDS ORDERED: LEVOFLOXACIN 750MG-D5W PMX 750 MG in DEXTROSE/WATER 1 150ML.BAG IVPB SCH (06:00)
--- NOTE | 2018-06-23 07:56 | XR ---
EXAMINATION TYPE: XR abdomen 1V DATE OF EXAM: 06/23/2018 7:45 AM CLINICAL HISTORY: Vomiting and pain. TECHNIQUE: Single supine KUB images of the abdomen is obtained. COMPARISON: Abdominal x-ray from yesterday. FINDINGS: Gas is seen in nondistended stomach. Scattered gas is seen in non-distended small bowel loo ps. Gas and fecal material is seen in non-distended colon and rectum. Cholecystectomy clips are redem onstrated. Visualized osseous structures are intact. IMPRESSION: Overall nonobstructive bowel gas pattern now felt present.
[2018-06-23] MEDS: HEPARIN SODIUM,PORCINE 5,000 UNIT/ML 1 ML VIAL SQ SCH ×2 (08:34→19:57)
[2018-06-23] MEDS: PANTOPRAZOLE 40 MG TABLET PO SCH ×2 (08:34→17:41)
[2018-06-23 08:57] LABS: Magnesium 1.6 mg/dL (1.6-2.3); Potassium 4.2 mmol/L (3.5-5.1)
[2018-06-23 09:03] LABS: HCT 27.8 % (34.0-46.0); HGB 9.1 gm/dL (11.4-16.0); MCH 27.9 pg (25.0-35.0); MCHC 32.8 g/dL (31.0-37.0); MCV 85.1 fL (80.0-100.0); Mean Platelet Volume 7.2; RBC 3.27 m/uL (3.80-5.40); RDW 14.6 % (11.5-15.5); WBC 12.6 k/uL (3.8-10.6)
[2018-06-23 09:05] LABS: Platelet Count 126 k/uL (150-450)
[2018-06-23] MEDS: IPRATROPIUM-ALBUTEROL 3 ML NEB INHALATION SCH ×4 (09:46→20:11)
[2018-06-23 10:17] LABS: Band Neutrophils % 7 %; Lymphocytes # (M) 0.63 k/uL (1.0-4.8); Metamyelocytes # (M) 0.25 k/uL (0); Metamyelocytes % 2 %; Monocytes # (M) 1.26 k/uL (0-1.0); Myelocytes # (M) 0.38 k/uL (0); Myelocytes % 3 %; Neutrophils % (M) 74 %; Nucleated Red Blood Cells 0 /100 WBC (0-0); Total Cells Counted 200
--- NOTE | 2018-06-23 11:00 | P.PN ---
Subjective Progress Note Date: 06/23/18 Principal diagnosis: Small Cell Lung Cancer on chemo Oxygenation is improving. Objective - Vital Signs Vital signs: Vital Signs Temp 98.2 F 06/23/18 05:00 Pulse 84 06/23/18 09:57 Resp 20 06/23/18 08:35 BP 130/82 06/23/18 05:00 Pulse Ox 95 06/23/18 05:00 Intake & Output 06/22/18 06/23/18 06/23/18 18:59 06:59 18:59 Intake Total 1040 Balance 1040 Weight 55.338 kg Intake: Intake, IV Titration 200 Amount Piperacillin-Tazobactam 3 200 .375 gm In Sodium Chloride 0.9% 100 ml @ 25 mls/hr IVPB Q8H [facility] Rx#: [id number] Oral 840 Other: Voiding Method Toilet Toilet Toilet # Voids 2 - Exam Gen: alert, in no apparent distress Head: atraumatic, normocephalic Eyes no scleral icterus, EOMI ENT: Posterior pharynx erythema and mild thrush Respiratory: Mild increased effort, expiratory wheezes. Cardio: tachycardia, normal heart sounds. GI: soft. non-distended, no-tenderness Ext: no nancy or calf tenderness Neurological: alert, cooperative, non-focal Skin exam: warm, dry, facial flushing, no ra - Labs CBC & Chem 7: 06/23/18 08:20 06/23/18 16:33 Labs: Abnormal Lab Results - Last 24 Hours (Table) 06/23/18 Range/Units 08:20 WBC 12.6 H (3.8-10.6) k/uL RBC 3.27 L (3.80-5.40) m/uL Hgb 9.1 L (11.4-16.0) gm/dL Hct 27.8 L (34.0-46.0) % Plt Count 126 L D (150-450) k/uL Neutrophils # (Manual) 10.20 H (1.3-7.7) k/uL Lymphocytes # (Manual) 0.63 L (1.0-4.8) k/uL Monocytes # (Manual) 1.26 H (0-1.0) k/uL Metamyelocytes # (Man) 0.25 H (0) k/uL Myelocytes # (Manual) 0.38 H (0) k/uL Microbiology - Last 24 Hours (Table) 06/22/18 00:16 Blood Culture - Preliminary Blood No Growth after 24 hours Assessment and Plan (1) Small cell lung cancer Narrative/Plan: - Status Post Cycle one of chemotherapy with Neulasta, 06/08/18 - Chemotherapy crrently on hold until resolution of acute problems, infection. Current Visit: Yes Status: Acute Code(s): C34.90 - MALIGNANT NEOPLASM OF UNSP PART OF UNSP BRONCHUS OR LUNG SNOMED Code(s): 419094348 (2) HCAP (healthcare-associated pneumonia) Narrative/Plan: - Fevers improving - Pulmonary following - IV antibiotics - Awaiting full mercado culture wor-up Current Visit: Yes Status: Acute Code(s): J18.9 - PNEUMONIA, UNSPECIFIED ORGANISM SNOMED Code(s): 379421234 (3) Acute exacerbation of chronic obstructive airways disease Current Visit: No Status: Acute Code(s): J44.1 - CHRONIC OBSTRUCTIVE PULMONARY DISEASE W (ACUTE) EXACERBATION SNOMED Code(s): 194411388 (4) Oxygen dependent Narrative/Plan: - 4-5L at home Current Visit: Yes Status: Acute Code(s): Z99.81 - DEPENDENCE ON SUPPLEMENTAL OXYGEN SNOMED Code(s): 872543205430 (5) Nausea & vomiting Narrative/Plan: - Reviewed abdominal xray, concern for possible ileus - Bowel Rest - Bowel Regimen - GI recs are resonable Current Visit: Yes Status: Acute Code(s): R11.2 - NAUSEA WITH VOMITING, UNSPECIFIED SNOMED Code(s): 47863297 (6) Fever Narrative/Plan: - Improved since admission - Monitor closely Current Visit: Yes Status: Acute Code(s): R50.9 - FEVER, UNSPECIFIED SNOMED Code(s): 222631204 (7) Leukocytosis Narrative/Plan: - Multifactoral: - Infection (Acute), Steroids, and Recent Neulasta Current Visit: Yes Status: Acute Code(s): D72.829 - ELEVATED WHITE BLOOD CELL COUNT, UNSPECIFIED SNOMED Code(s): 658966610 (8) Normocytic anemia Narrative/Plan: - Secondary to chemotherapy - No transfusion indicated at this time, transfuse less than 7 - Continue to monitor daily CBC Current Visit: Yes Status: Acute Code(s): D64.9 - ANEMIA, UNSPECIFIED SNOMED Code(s): 754343108 (9) Thrombocytopenia Narrative/Plan: - Secondary to chemotherapy - Platlet Count stable as above 50K at this time - Transfuse less than 15K in chemo induced, febrile patient Current Visit: Yes Status: Acute Code(s): D69.6 - THROMBOCYTOPENIA, UNSPECIFIED SNOMED Code(s): 422059786 Plan: CBC is stable, no need for transfusions or intervention Continue supportive care per primary team and we will follow.
[2018-06-23 11:04] VITALS: BMI 19.7
--- NOTE | 2018-06-23 11:06 | P.PN ---
Subjective This is a pleasant 68 years old female with past medical history of COPD, hypertension, hypothyroidism, oxygen dependent on 3 L NC, status post total nephrectomy for donation with stable renal function thoracic aortic aneurysm, nephrolithiasis, hypertension and hyperlipidemia, multinodular goiter on methimazole patient was recently diagnosed with small cell lung cancer with no evidence of metastatic disease was found during last admission, patient has multiple admission due to COPD exacerbation. Now presents with worsening progressive dyspnea with cough and clear phlegm over one to 2 days associated with epigastric pain and tenderness and vomiting about 3-4 times per day for the last 1 or 2 days however she denies any blood in it. On admission her Vitas looks stable, she has mild leukocytosis, creatinine is normal 0.9 and urinalysis is negative for infection. She has positive blood culture for micrococcus species but this is an old one from 05/13/2018: COPD and pulmonary fibrosis. EKG showing normal sinus rhythm with no significant ST T changes, QTC 454. Patient was started on Zosyn and Levaquin. 06/23/2018 Today when asked the patient about her breathing she says is fine, she has some dry cough but no chest pain. Patient states that her epigastric pain and tenderness are improving and they went away. Patient felt nausea couple times but she denies vomiting. Patient had normal bowel movement on examination she has mild tenderness in the epigastrium when pressing heart only. Repeat abdominal x-ray shows nonobstructive bowel gas pattern. Hematology consult is appreciated.. She still have slight leukocytosis at 12.6 K, but she is on steroids. Her platelet is improved from 72 up to 126. BMP is unremarkable. Objective - Vital Signs Vital signs: Vital Signs Temp 98.2 F 06/23/18 05:00 Pulse 84 06/23/18 09:57 Resp 20 06/23/18 08:35 BP 130/82 06/23/18 05:00 Pulse Ox 95 06/23/18 05:00 Intake & Output 06/22/18 06/23/18 06/23/18 18:59 06:59 18:59 Intake Total 1040 Balance 1040 Weight 55.338 kg Intake: Intake, IV Titration 200 Amount Piperacillin-Tazobactam 3 200 .375 gm In Sodium Chloride 0.9% 100 ml @ 25 mls/hr IVPB Q8H [facility] Rx#: [id number] Oral 840 Other: Voiding Method Toilet Toilet Toilet # Voids 2 - Exam GENERAL: The patient is alert and oriented x3, not in any acute distress. Well developed, well nourished. HEENT: Pupils are round and equally reacting to light. EOMI. No scleral icterus. No conjunctival pallor. Normocephalic, atraumatic. No pharyngeal erythema. No thyromegaly. CARDIOVASCULAR: S1 and S2 present. No murmurs, rubs, or gallops. -PULMONARY: Chest is clear to auscultation, scattered wheezing both sides -ABDOMEN: Soft, very mild epigastric tenderness (improving), no rebound tenderness nondistended, normoactive bowel sounds. No palpable organomegaly. MUSCULOSKELETAL: No joint swelling or deformity. EXTREMITIES: No cyanosis, clubbing, or pedal edema. NEUROLOGICAL: Gross neurological examination did not reveal any focal deficits. SKIN: No rashes. - Labs CBC & Chem 7: 06/23/18 08:20 06/23/18 08:20 Labs: Abnormal Lab Results - Last 24 Hours (Table) 06/23/18 Range/Units 08:20 WBC 12.6 H (3.8-10.6) k/uL RBC 3.27 L (3.80-5.40) m/uL Hgb 9.1 L (11.4-16.0) gm/dL Hct 27.8 L (34.0-46.0) % Plt Count 126 L D (150-450) k/uL Neutrophils # (Manual) 10.20 H (1.3-7.7) k/uL Lymphocytes # (Manual) 0.63 L (1.0-4.8) k/uL Monocytes # (Manual) 1.26 H (0-1.0) k/uL Metamyelocytes # (Man) 0.25 H (0) k/uL Myelocytes # (Manual) 0.38 H (0) k/uL Microbiology - Last 24 Hours (Table) 06/22/18 00:16 Blood Culture - Preliminary Blood No Growth after 24 hours Assessment and Plan Assessment: Acute COPD exacerbation history of COPD, oxygen dependent at 3 L nasal cannula oxygen Recently diagnosed small cell lung cancer Upper abdominal pain and vomiting. Essential hypertension History of hypothyroidism History of multinodular goiter on methimazole Status post total nephrectomy for donation Thoracic aortic aneurysm Nephrolithiasis Hyperlipidemia Plan: This is a pleasant 68 years old female who presents because of COPD exacerbation. Continue with steroids, breathing treatment, oxygen. Call pulmonary consult. Abdominal x-ray. We'll check influenza. Labs and medication were reviewed.. Continue same treatment. Continue with symptomatic treatment. Resume home medication. Monitor lytes and vitals. DVT and GI prophylaxis. Further recommendations of the clinical course of the patient DVT prophylaxis: Subcutaneous heparin GI Prophylaxis: Protonix PT/OT: Pending Prognosis is guarded
--- NOTE | 2018-06-23 11:56 | P.GSCN ---
History of Present Illness Consult date: 06/23/18 History of present illness: This is a 68 year old female with past medical history of COPD, hypertension, hypothyroidism, oxygen dependent on 3 L NC, status post total nephrectomy for donation with stable renal function ,thoracic aortic aneurysm, nephrolithiasis, hypertension and hyperlipidemia, multinodular goiter with recently diagnosed with small cell lung cancer. She is currently admitted with the diagnosis of pneumonia. She was having progressive dyspnea with cough prior to her arrival. She also complained of some epigastric pain and tenderness and vomiting. On workup, the patient did have an abdominal x-ray that did show some dilated loops of small bowel that were concerning for ileus. She states that over the past day that her epigastric pain has improved. He also states that she is having flatus and has had multiple bowel movements. She denies any significant discomfort at this time. She denies any fevers, chills, chest pain or shortness of breath at this time. Review of Systems All systems: negative Past Medical History Past Medical History: Asthma, COPD, Hypertension, Pneumonia, Thyroid Disorder Additional Past Medical History / Comment(s): recent UTI-now resolved, 2015 resp arrest, on vent here FEB 2017-resp. failure-on vent. in [place] visiting brother-[place] rehab after, O2 dependent- 3L/NC continuously, pneumonia 2010, acute trachebronchitis, chronic lt shoulder pain, DJD, bowel obstruction , donated R kidney to son, post colonoscopy with. polypectomy bleed and was in ICU, Graves disease, AAA found in June 2012 - has been stable since then. throat cancer History of Any Multi-Drug Resistant Organisms: None Reported Past Surgical History: Cholecystectomy, Hysterectomy, Orthopedic Surgery Additional Past Surgical History / Comment(s): R nephrectomy, 2012 laparotomy with lysis of adhesions from kidney surgery causing bowel obstruction. L shoulder and collar bone surgery, colonoscopy with polypectomy, cataract surg- lens implants. AAA, Past Anesthesia/Blood Transfusion Reactions: No Reported Reaction Additional Past Anesthesia/Blood Transfusion Reaction / Comm: Pt has never received blood. Past Psychological History: Depression Smoking Status: Former smoker Past Alcohol Use History: None Reported Past Drug Use History: None Reported - Past Family History Father Family Medical History: Cancer Additional Family Medical History / Comment(s): Pancreatic cancer and passed when he was 58 Mother Family Medical History: No Reported History Additional Family Medical History / Comment(s): None Medications and Allergies Home Medications Medication Instructions Recorded Confirmed Type DULoxetine HCL [Cymbalta] 60 mg PO DAILY@0800 03/25/17 06/23/18 History Metoprolol Succinate [Toprol XL] 25 mg PO DAILY 03/25/17 06/23/18 History Hydrocodone/Acetaminophen [[place] 1 tab PO Q6H PRN 07/08/17 06/23/18 History 10-325] Atorvastatin [Lipitor] 10 mg PO HS 09/20/17 06/23/18 History DULoxetine HCL [Cymbalta] 30 mg PO DAILY@0800 03/06/18 06/23/18 History Cholecalciferol [Vitamin D3] 1,000 unit PO DAILY 05/14/18 06/23/18 History Loperamide [Imodium] 2 mg PO DAILY PRN 05/14/18 06/22/18 History Ipratropium-Albuterol Nebulize 3 ml INHALATION RT-QID 06/22/18 06/22/18 History [Duoneb 0.5 mg-3 mg/3 ml Soln] Allergies Allergy/AdvReac Type Severity Reaction Status Date / Time Influenza Virus Vaccines Allergy Dyspnea Verified 06/22/18 09:13 hydromorphone [From Dilaudid] AdvReac Hallucinati Verified 06/22/18 09:13 ons Surgical - Exam Osteopathic Statement: *. No significant issues noted on an osteopathic structural exam other than those noted in the History and Physical/Consult. Vital Signs Temp Pulse Resp BP Pulse Ox 100.4 F H 107 H 20 146/92 96 06/21/18 22:35 06/21/18 22:35 06/21/18 22:35 06/21/18 22:35 06/21/18 22:35 - General well nourished, no distress - Eyes normal ocular movement - ENT no hearing loss - Neck trachea midline - Respiratory No difficulty with respiration - Abdomen Soft, nontender, nondistended, no rebound, no guarding - Psychiatric oriented to time, oriented to person, oriented to place Results - Labs 06/23/18 08:20 06/23/18 08:20 Abnormal Lab Results - Last 24 Hours (Table) 06/23/18 Range/Units 08:20 WBC 12.6 H (3.8-10.6) k/uL RBC 3.27 L (3.80-5.40) m/uL Hgb 9.1 L (11.4-16.0) gm/dL Hct 27.8 L (34.0-46.0) % Plt Count 126 L D (150-450) k/uL Neutrophils # (Manual) 10.20 H (1.3-7.7) k/uL Lymphocytes # (Manual) 0.63 L (1.0-4.8) k/uL Monocytes # (Manual) 1.26 H (0-1.0) k/uL Metamyelocytes # (Man) 0.25 H (0) k/uL Myelocytes # (Manual) 0.38 H (0) k/uL Microbiology - Last 24 Hours (Table) 06/22/18 00:16 Blood Culture - Preliminary Blood No Growth after 24 hours Diabetes panel 06/23/18 06/23/18 Range/Units 01:47 08:20 Sodium 140 (137-145) mmol/L Potassium 3.7 4.2 (3.5-5.1) mmol/L Chloride 104 (98-107) mmol/L Carbon Dioxide 29 (22-30) mmol/L BUN 12 (7-17) mg/dL Creatinine 0.89 (0.52-1.04) mg/dL Glucose 92 (74-99) mg/dL Calcium 9.0 (8.4-10.2) mg/dL Calcium panel 06/23/18 Range/Units 08:20 Calcium 9.0 (8.4-10.2) mg/dL Pituitary panel 06/23/18 06/23/18 Range/Units 01:47 08:20 Sodium 140 (137-145) mmol/L Potassium 3.7 4.2 (3.5-5.1) mmol/L Chloride 104 (98-107) mmol/L Carbon Dioxide 29 (22-30) mmol/L BUN 12 (7-17) mg/dL Creatinine 0.89 (0.52-1.04) mg/dL Glucose 92 (74-99) mg/dL Calcium 9.0 (8.4-10.2) mg/dL Adrenal panel 06/23/18 06/23/18 Range/Units 01:47 08:20 Sodium 140 (137-145) mmol/L Potassium 3.7 4.2 (3.5-5.1) mmol/L Chloride 104 (98-107) mmol/L Carbon Dioxide 29 (22-30) mmol/L BUN 12 (7-17) mg/dL Creatinine 0.89 (0.52-1.04) mg/dL Glucose 92 (74-99) mg/dL Calcium 9.0 (8.4-10.2) mg/dL Assessment and Plan (1) Ileus Narrative/Plan: The ileus that the patient presented with appears to be resolving. She denies any emesis. She is having bowel function. She is tolerating a diet. At this time, we will continue with a diet and no acute plan for surgical intervention. Thank you for this consultation, we look forward in providing in this patient's care. Current Visit: Yes Status: Acute Code(s): K56.7 - ILEUS, UNSPECIFIED SNOMED Code(s): 460252376
--- NOTE | 2018-06-23 13:13 | CDI ---
Documentation Clarification Form Date: June 23, 2018 From: Loraine Ramírez CDS Assembler Equipment Admit Date: 06/22/2018 5:47:00 AM Patient Name: Keri Kern Visit Number: [id number] ATTENTION: The Clinical Documentation Specialists (CDI) and [facility] Coding Staff appreciate your assistance in clarifying documentation. Please respond to the clarification below the line at the bottom and electronically sign. The CDI & [facility] Coding staff will review the response and follow-up if needed. Please note: Queries are made part of the Legal Health Record. If you have any questions, please contact the author of this message via ITS. Dr. Kahn Sheet History/Risk Factors: COPD, Lung cancer, O2 dependant, exsmoker Clinical Indicators: Per H&P and PN the patient is O2 dependant on 3L nc Treatment: Breathing tx O2 nasal cannula 2L - 4L In your professional opinion, can you please clarify if these findings signify one of the following conditions? Chronic Respiratory Failure (further specify (if known)): With hypercapnia? (pCO2 >50 and pH <7.35) With hypoxia? (pO2 <60 mm Hg or SpO2 <91% on room air) Other Diagnosis, please specify Unable to determine (Last Revision: September 2017) Chronic hypoxic respiratory failure MTDD
--- NOTE | 2018-06-23 13:34 | CDI ---
Documentation Clarification Form Date: June 23, 2018 From: Loraine Ramírez CDS Cell Installer Admit Date: 06/22/2018 5:47:00 AM Patient Name: Keri Kern Visit Number: [id number] ATTENTION: The Clinical Documentation Specialists (CDI) and [facility] Coding Staff appreciate your assistance in clarifying documentation. Please respond to the clarification below the line at the bottom and electronically sign. The CDI & [facility] Coding staff will review the response and follow-up if needed. Please note: Queries are made part of the Legal Health Record. If you have any questions, please contact the author of this message via ITS. Dr. Femi Payton [facility] associated pneumonia was found documented by the ED physician and also Johanna Gutierrez NP for Oncology consult. Fever is also noted by Oncology consult. History/Risk Factors: COPD, Lung cancer on chemo, O2 dependent Clinical Indicators: Patient presented to the ED with a temp of 100.4 which increased to 101.1 Pneumonia was documented by ED and Oncology WBC on 06/22: 12.4 X-ray on 06/22: impression was COPD and pulmonary fibrosis, minimal atelectasis left lung base Treatment: Antibiotics: IV Zosyn O2 nasal cannula Breathing Tx In your opinion, what is the most clinically appropriate diagnosis for this patient? Healthcare Associated Pneumonia Ruled In? Healthcare Associated Pneumonia Ruled Out? Other explanation of clinical findings of fever (please clarify) Unable to determine (no explanation for clinical findings) (Last Revision: September 2017) Chest x-ray doesn't show evidence of pneumonia, and this this is human resources trainer also thinks. Most likely patient have tracheobronchitis that has been treated with antibiotics. MTDD
--- NOTE | 2018-06-23 14:32 | CDI ---
Documentation Clarification Form Date: June 23, 2018 From: Loraine Ramírez CDS Tetryl Wringer Operator Admit Date: 06/22/2018 5:47:00 AM Patient Name: Keri Kern Visit Number: [id number] ATTENTION: The Clinical Documentation Specialists (CDI) and [facility] Coding Staff appreciate your assistance in clarifying documentation. Please respond to the clarification below the line at the bottom and electronically sign. The CDI & [facility] Coding staff will review the response and follow-up if needed. Please note: Queries are made part of the Legal Health Record. If you have any questions, please contact the author of this message via ITS. Dr. Kahn Sheet History/Risk Factors: Small cell lung cancer, COPD, upper abdominal pain and vomiting with possible ileus Clinical indicators: Labs on 06/22 show K+ 3.2 Treatment: IV Potassium, PO Potassium Clinical significance of diagnostic testing and treatment CANNOT be assumed or coded without physician documentation of significance if any. Please clarify what abnormal laboratory signifies: Disease process, please specify Abnormal Lab Value due to, please specify Unable to determine Other, please specify (Last Revision: March 2017) Low potassium could be multifactorial, due to decreased oral intake, medication effect, for example antibiotic, vomiting MTDD
[2018-06-23] MEDS: HYDROcodone/APAP 10-325MG 1 EACH TAB PO PRN (15:03)
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
[2018-06-23 17:09] LABS: Potassium 3.6 mmol/L (3.5-5.1)
[2018-06-23 18:11] LABS: Basophils # (A) 0.1 k/uL (0-0.2); Basophils % (A) 1 %; Eosinophils # (A) 0.2 k/uL (0-0.7); Eosinophils % (A) 1 %; HCT 27.1 % (34.0-46.0); HGB 8.8 gm/dL (11.4-16.0); Lymphocytes # (A) 0.7 k/uL (1.0-4.8); Lymphocytes % (A) 5 %; MCH 27.7 pg (25.0-35.0); MCHC 32.5 g/dL (31.0-37.0); MCV 85.3 fL (80.0-100.0); Mean Platelet Volume 7.4; Monocytes # (A) 0.8 k/uL (0-1.0); Monocytes % (A) 6 %; Neutrophils # (A) 12.2 k/uL (1.3-7.7); Neutrophils % (A) 86 %; Platelet Count 131 k/uL (150-450); RBC 3.18 m/uL (3.80-5.40); RDW 14.6 % (11.5-15.5); WBC 14.3 k/uL (3.8-10.6)
[2018-06-23] MEDS ORDERED: ATORVASTATIN 10 MG TAB PO SCH (21:00)
[2018-06-23 21:30] VITALS: RESP 16
[2018-06-24] MEDS: HYDROcodone/APAP 10-325MG 1 EACH TAB PO PRN (03:52)
[2018-06-24 06:25] VITALS: BP 144/84; TEMP 98.5
[2018-06-24 07:52] LABS: HCT 25.9 % (34.0-46.0); HGB 8.5 gm/dL (11.4-16.0); MCH 27.5 pg (25.0-35.0); MCHC 32.7 g/dL (31.0-37.0); MCV 83.9 fL (80.0-100.0); Mean Platelet Volume 7.1; Platelet Count 173 k/uL (150-450); RBC 3.08 m/uL (3.80-5.40); RDW 14.9 % (11.5-15.5); WBC 12.4 k/uL (3.8-10.6)
[2018-06-24] MEDS ORDERED: DULoxetine HCL 60 MG CAPSULE.DR PO SCH (08:00)
[2018-06-24] MEDS ORDERED: DULoxetine HCL 30 MG CAPSULE.DR PO SCH (08:00)
[2018-06-24] MEDS: IPRATROPIUM-ALBUTEROL 3 ML NEB INHALATION SCH ×2 (08:28→11:34)
[2018-06-24 08:31] VITALS: PULSE 100
--- NOTE | 2018-06-24 08:46 | P.PN ---
Subjective Progress Note Date: 06/24/18 Principal diagnosis: Ileus, pneumonia The patient was seen on rounds. She's feeling much better today. Nausea and vomiting have resolved. Diarrhea has resolved. She is passing a large amount of flatus. Tolerating a diet Objective - Vital Signs Vital signs: Vital Signs Temp 98.5 F 06/24/18 05:00 Pulse 100 06/24/18 08:40 Resp 16 06/24/18 05:00 BP 144/84 06/24/18 05:00 Pulse Ox 95 06/24/18 05:00 Intake & Output 06/23/18 06/24/18 06/24/18 18:59 06:59 18:59 Intake Total 100 Balance 100 Weight 55.338 kg 55.338 kg Intake: Intake, IV Titration 100 Amount Piperacillin-Tazobactam 3 100 .375 gm In Sodium Chloride 0.9% 100 ml @ 25 mls/hr IVPB Q8H [facility] Rx#: [id number] Other: Voiding Method Toilet Toilet # Voids 1 - Constitutional General appearance: Present: cooperative, no acute distress - Gastrointestinal General gastrointestinal: Present: normal bowel sounds, soft. Absent: tenderness - Labs CBC & Chem 7: 06/24/18 07:27 06/23/18 16:33 Labs: Abnormal Lab Results - Last 24 Hours (Table) 06/23/18 06/23/18 06/23/18 Range/Units 08:20 16:33 16:33 WBC 12.6 H 14.3 H (3.8-10.6) k/uL RBC 3.27 L 3.18 L (3.80-5.40) m/uL Hgb 9.1 L 8.8 L (11.4-16.0) gm/dL Hct 27.8 L 27.1 L (34.0-46.0) % Plt Count 126 L D 131 L (150-450) k/uL Neutrophils # 12.2 H (1.3-7.7) k/uL Neutrophils # (Manual) 10.20 H (1.3-7.7) k/uL Lymphocytes # 0.7 L (1.0-4.8) k/uL Lymphocytes # (Manual) 0.63 L (1.0-4.8) k/uL Monocytes # (Manual) 1.26 H (0-1.0) k/uL Metamyelocytes # (Man) 0.25 H (0) k/uL Myelocytes # (Manual) 0.38 H (0) k/uL Glucose 121 H (74-99) mg/dL 06/24/18 Range/Units 07:27 WBC 12.4 H (3.8-10.6) k/uL RBC 3.08 L (3.80-5.40) m/uL Hgb 8.5 L (11.4-16.0) gm/dL Hct 25.9 L (34.0-46.0) % Plt Count (150-450) k/uL Neutrophils # (1.3-7.7) k/uL Neutrophils # (Manual) (1.3-7.7) k/uL Lymphocytes # (1.0-4.8) k/uL Lymphocytes # (Manual) (1.0-4.8) k/uL Monocytes # (Manual) (0-1.0) k/uL Metamyelocytes # (Man) (0) k/uL Myelocytes # (Manual) (0) k/uL Glucose (74-99) mg/dL Microbiology - Last 24 Hours (Table) 06/22/18 16:30 Gram Stain - Preliminary Sputum Sputum Culture - Preliminary 06/22/18 00:16 Blood Culture - Preliminary Blood No Growth after 48 hours Assessment and Plan (1) Ileus Current Visit: Yes Status: Acute Code(s): K56.7 - ILEUS, UNSPECIFIED SNOMED Code(s): 774037103 (2) Nausea & vomiting Current Visit: Yes Status: Acute Code(s): R11.2 - NAUSEA WITH VOMITING, UNSPECIFIED SNOMED Code(s): 87564503 Plan: Her postoperative ileus appears to have resolved. This is likely due to her underlying pneumonia. We'll follow up on a when necessary basis.
[2018-06-24] MEDS ORDERED: METOPROLOL SUCCINATE (ER) 25 MG TAB.ER.24H PO SCH (09:00)
[2018-06-24] MEDS ORDERED: CHOLECALCIFEROL 1,000 UNIT TAB PO SCH (09:00)
[2018-06-24] MEDS: HEPARIN SODIUM,PORCINE 5,000 UNIT/ML 1 ML VIAL SQ SCH (09:07)
[2018-06-24] MEDS: PANTOPRAZOLE 40 MG TABLET PO SCH (09:07)
[2018-06-24 11:40] LABS: Band Neutrophils % 4 %; Eosinophils # (M) 0.12 k/uL (0-0.7); Lymphocytes # (M) 0.62 k/uL (1.0-4.8); Metamyelocytes # (M) 0.25 k/uL (0); Metamyelocytes % 2 %; Monocytes # (M) 1.49 k/uL (0-1.0); Myelocytes # (M) 0.25 k/uL (0); Myelocytes % 2 %; Neutrophils % (M) 75 %; Nucleated Red Blood Cells 0 /100 WBC (0-0); Total Cells Counted 200
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
== END 2018-06-24 14:20 | disposition home health service (06) | DRG 191 ==
LOC: EC 22:30 → 3NMEDONC 06-22 05:47
PROVIDERS: ADMIT Hospitalist; ATTEND Hospitalist
DX: J43.9 Emphysema, unspecified (principal); C34.90 Malignant neoplasm of unspecified part of unspecified bronchus or lung; J96.11 Chronic respiratory failure with hypoxia; J98.11 Atelectasis; K56.7 Ileus, unspecified; D64.81 Anemia due to antineoplastic chemotherapy; T45.1X5A Adverse effect of antineoplastic and immunosuppressive drugs, initial encounter; D69.59 Other secondary thrombocytopenia; E05.00 Thyrotoxicosis with diffuse goiter without thyrotoxic crisis or storm; E03.9 Hypothyroidism, unspecified; E78.5 Hyperlipidemia, unspecified; F32.9 Major depressive disorder, single episode, unspecified; F41.9 Anxiety disorder, unspecified; I10 Essential (primary) hypertension; J40 Bronchitis, not specified as acute or chronic; I71.4 Abdominal aortic aneurysm, without rupture; J84.10 Pulmonary fibrosis, unspecified; N20.0 Calculus of kidney; Z96.1 Presence of intraocular lens; Z79.899 Other long term (current) drug therapy; Z80.0 Family history of malignant neoplasm of digestive organs; Z80.8 Family history of malignant neoplasm of other organs or systems; Z87.01 Personal history of pneumonia (recurrent); Z87.442 Personal history of urinary calculi; Z87.891 Personal history of nicotine dependence; Z90.5 Acquired absence of kidney; Z90.710 Acquired absence of both cervix and uterus; Z98.42 Cataract extraction status, left eye; Z98.41 Cataract extraction status, right eye; Z99.81 Dependence on supplemental oxygen; Z88.5 Allergy status to narcotic agent; Z88.7 Allergy status to serum and vaccine; Z90.49 Acquired absence of other specified parts of digestive tract; Z52.4 Kidney donor
CPT/HCPCS: 36415; 71046; 74018; 80048; 80053; 81001; 82550; 82553; 83605; 83735; 84132; 84484; 85025; 87040; 87070; 87205; 87502; 93005; 94640; 94760; 96365; 96366; 96367; 99285

== ENCOUNTER 2018-07-25 13:30 | Inpatient (IN) | payer MEDICARE ==
[2018-07-25] MEDS ORDERED: IPRATROPIUM-ALBUTEROL 3 ML NEB INHALATION STA ×2 (13:45→16:05)
[2018-07-25] MEDS ORDERED: SODIUM CHLORIDE 0.9% 1,000 ML IV STA (13:45)
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
[2018-07-25 14:17] LABS: Anisocytosis Moderate; Basophils % (A) 0 %; Eosinophils % (A) 0 %; HCT 26.6 % (34.0-46.0); HGB 8.6 gm/dL (11.4-16.0); Lymphocytes # (A) 0.1 k/uL (1.0-4.8); Lymphocytes % (A) 1 %; MCH 28.8 pg (25.0-35.0); MCHC 32.3 g/dL (31.0-37.0); Macrocytosis Slight; Mean Platelet Volume 6.2; Monocytes # (A) 0.9 k/uL (0-1.0); Monocytes % (A) 6 %; Neutrophils # (A) 15.2 k/uL (1.3-7.7); Neutrophils % (A) 93 %; Platelet Count 240 k/uL (150-450); RBC 2.99 m/uL (3.80-5.40); RDW 20.2 % (11.5-15.5); WBC 16.3 k/uL (3.8-10.6)
[2018-07-25 14:24] LABS: ALT 32 U/L (9-52); AST 14 U/L (14-36); Albumin 3.7 g/dL (3.5-5.0); Alkaline Phosphatase 80 U/L (38-126); Anion Gap 8 mmol/L; Blood Urea Nitrogen 22 mg/dL (7-17); Calcium 9.5 mg/dL (8.4-10.2); Carbon Dioxide 33 mmol/L (22-30); Chloride 99 mmol/L (98-107); Glucose 130 mg/dL (74-99); Magnesium 1.6 mg/dL (1.6-2.3); Potassium 3.2 mmol/L (3.5-5.1); Sodium 140 mmol/L (137-145); Total Bilirubin 0.9 mg/dL (0.2-1.3); Total Protein 5.7 g/dL (6.3-8.2)
[2018-07-25 14:27] LABS: INR 0.9 (<1.2); Prothrombin Time 9.8 sec (9.0-12.0)
[2018-07-25 14:30] LABS: Partial Thromboplastin Time 20.4 sec (22.0-30.0)
[2018-07-25 14:48] LABS: Creatine Kinase MB 0.9 ng/mL (0.0-2.4); Troponin I 0.017 ng/mL (0.000-0.034)
--- NOTE | 2018-07-25 14:51 | XR ---
EXAMINATION TYPE: XR chest 2V DATE OF EXAM: 07/25/2018 COMPARISON: 06/22/2018 HISTORY: Shortness of breath TECHNIQUE: Frontal and lateral views of the chest are obtained. FINDINGS: Scattered senescent parenchymal changes noted. Hyperinflation compatible with COPD. No evidence for infiltrate. No evidence for atelectasis. Heart size is stable. Mediastinal structures are stable and grossly unremarkable. No evidence for hilar prominence. Degenerative changes dorsal spine. IMPRESSION: 1. No evidence for acute pulmonary disease.
[2018-07-25] MEDS ORDERED: POTASSIUM CHLORIDE ER 20 MEQ TAB.ER PO STA (15:32)
[2018-07-25] MEDS ORDERED: MAGNESIUM SULFATE-D5W PMX 1 GM in DEXTROSE/WATER 1 100ML.BAG IVPB ONE (15:32)
[2018-07-25] MEDS ORDERED: LOPERAMIDE 2 MG CAP PO PRN (17:03)
[2018-07-25] MEDS ORDERED: methylPREDNISolone SOD SUCCI 125 MG/2 ML VIAL IV SCH (18:00)
[2018-07-25] MEDS: IPRATROPIUM-ALBUTEROL 3 ML NEB INHALATION SCH ×2 (19:38→23:17)
[2018-07-25] MEDS: FORMOTEROL FUMARATE 20 MCG/2 ML NEBU INHALATION SCH (19:38)
--- NOTE | 2018-07-25 19:54 | P.HPIM ---
History of Present Illness 68-year-old female with history of COPD recently diagnosed lung cancer came in with complaints of shortness of breath and wheezing or cough without any significant sputum production unable to bring up much she did miss her breath chemotherapy today. Denied any fever chills chest x-ray did not show any pneumonic process patient uses 3 L of onset at home patient is presently requiring 4 L of oxygen. Review of Systems REVIEW OF SYSTEMS: CONSTITUTIONAL: No fever, no malaise, no fatigue. HEENT: No recent visual problems or hearing problems. Denied any sore throat. CARDIOVASCULAR: No chest pain, orthopnea, PND, no palpitations, no syncope. PULMONARY: no hemoptysis. GASTROINTESTINAL: No diarrhea, no nausea, no vomiting, no abdominal pain. NEUROLOGICAL: No headaches, no weakness, no numbness. HEMATOLOGICAL: Denies any bleeding or petechiae. GENITOURINARY: Denies any burning micturition, frequency, or urgency. MUSCULOSKELETAL/RHEUMATOLOGICAL: Denies any joint pain, swelling, or any muscle pain. ENDOCRINE: Denies any polyuria or polydipsia. The rest of the 14-point review of systems is negative. Past Medical History Past Medical History: Asthma, Cancer, COPD, Hyperlipidemia, Hypertension, Pneumonia, Thyroid Disorder Additional Past Medical History / Comment(s): ecent UTI-now resolved, 2015 resp arrest, on vent here FEB 2017-resp. failure-on vent. in [place] visiting brother-[facility] rehab after, O2 dependent- 3L/NC continuously, pneumonia 2010, acute trachebronchitis, chronic lt shoulder pain, DJD, bowel obstruction , donated R kidney to son, post colonoscopy with. polypectomy bleed and was in ICU, Graves disease, hx uti-ecoli 06-08-18 ,thoracic aortic anuerysm -being monitored. lung cancer pt stated due for chemo 07-26-18 and had radiation ".pt stated they put a stent in my lung" History of Any Multi-Drug Resistant Organisms: None Reported Past Surgical History: Cholecystectomy, Hysterectomy, Orthopedic Surgery Additional Past Surgical History / Comment(s): R nephrectomy, 2011 laparotomy with lysis of adhesions from kidney surgery causing bowel obstruction. L shoulder and collar bone surgery, colonoscopy with polypectomy, cataract surg- lens implants. Past Anesthesia/Blood Transfusion Reactions: No Reported Reaction Additional Past Anesthesia/Blood Transfusion Reaction / Comment(s): Pt has never received blood. Smoking Status: Former smoker - Past Family History Father Family Medical History: Cancer Additional Family Medical History / Comment(s): Pancreatic cancer and passed when he was 58 Mother Family Medical History: No Reported History Additional Family Medical History / Comment(s): None Medications and Allergies Home Medications Medication Instructions Recorded Confirmed Type DULoxetine HCL [Cymbalta] 60 mg PO DAILY@0800 03/25/17 07/25/18 History Metoprolol Succinate [Toprol XL] 25 mg PO DAILY 03/25/17 07/25/18 History Hydrocodone/Acetaminophen [[place] 1 tab PO Q6H PRN 07/08/17 07/25/18 History 10-325] Atorvastatin [Lipitor] 10 mg PO HS 09/20/17 07/25/18 History DULoxetine HCL [Cymbalta] 30 mg PO DAILY@1400 03/06/18 07/25/18 History Cholecalciferol [Vitamin D3] 1,000 unit PO DAILY 05/14/18 07/25/18 History Loperamide [Imodium] 2 mg PO DAILY PRN 05/14/18 07/25/18 History Ipratropium-Albuterol Nebulize 3 ml INHALATION RT-QID 06/22/18 07/25/18 History [Duoneb 0.5 mg-3 mg/3 ml Soln] ALPRAZolam [Xanax] 0.5 mg PO BID PRN 07/25/18 07/25/18 History Arformoterol Tartrate [Brovana] 15 mcg INHALATION RT-BID 07/25/18 07/25/18 History Methimazole [Tapazole] 5 mg PO DAILY 07/25/18 07/25/18 History Temazepam [Restoril] 15 mg PO HS 07/25/18 07/25/18 History amLODIPine BESYLATE [Norvasc] 10 mg PO DAILY 07/25/18 07/25/18 History Allergies Allergy/AdvReac Type Severity Reaction Status Date / Time Influenza Virus Vaccines Allergy Dyspnea Verified 06/22/18 09:13 hydromorphone [From Dilaudid] AdvReac Hallucinati Verified 06/22/18 09:13 ons Physical Exam Vitals: Vital Signs Temp Pulse Resp BP Pulse Ox 07/25/18 19:47 89 L 07/25/18 19:43 102 H 07/25/18 19:38 101 H 07/25/18 18:14 100 23 123/75 07/25/18 17:30 100 23 123/75 07/25/18 17:00 103 H 25 H 118/68 07/25/18 16:54 102 H 22 07/25/18 16:45 100 22 07/25/18 16:30 98 20 180/100 07/25/18 16:00 38 H 109/64 07/25/18 15:30 97 20 119/82 07/25/18 15:00 100 15 130/84 07/25/18 14:40 101 H 17 130/84 95 07/25/18 14:13 100 07/25/18 14:10 104 H 18 118/65 07/25/18 13:59 94 07/25/18 13:50 20 07/25/18 13:40 100 19 144/116 91 L 07/25/18 13:37 98.1 F 101 H 22 144/116 91 L Intake and Output 07/25/18 07/25/18 07/25/18 06:59 14:59 22:59 Other: Weight 54.431 kg PHYSICAL EXAMINATION: GENERAL: The patient is alert and oriented x3, not in any acute distress. Thin built female HEENT: Pupils are round and equally reacting to light. EOMI. No scleral icterus. No conjunctival pallor. Normocephalic, atraumatic. No pharyngeal erythema. No thyromegaly. CARDIOVASCULAR: S1 and S2 present. No murmurs, rubs, or gallops. PULMONARY: Please air entry with expiratory wheezing ABDOMEN: Soft, nontender, nondistended, normoactive bowel sounds. No palpable organomegaly. MUSCULOSKELETAL: No joint swelling or deformity. EXTREMITIES: No cyanosis, clubbing, or pedal edema. NEUROLOGICAL: Gross neurological examination did not reveal any focal deficits. SKIN: No rashes. Results CBC & Chem 7: 07/25/18 13:50 07/25/18 13:50 Labs: Abnormal Lab Results - Last 24 Hours (Table) 07/25/18 07/25/18 07/25/18 Range/Units 13:50 13:50 13:50 WBC 16.3 H (3.8-10.6) k/uL RBC 2.99 L (3.80-5.40) m/uL Hgb 8.6 L (11.4-16.0) gm/dL Hct 26.6 L (34.0-46.0) % RDW 20.2 H (11.5-15.5) % Neutrophils # 15.2 H (1.3-7.7) k/uL Lymphocytes # 0.1 L (1.0-4.8) k/uL APTT (22.0-30.0) sec Potassium 3.2 L (3.5-5.1) mmol/L Carbon Dioxide 33 H (22-30) mmol/L BUN 22 H (7-17) mg/dL Glucose 130 H (74-99) mg/dL Total Creatine Kinase 26 L (30-135) U/L Total Protein 5.7 L (6.3-8.2) g/dL 07/25/18 Range/Units 13:50 WBC (3.8-10.6) k/uL RBC (3.80-5.40) m/uL Hgb (11.4-16.0) gm/dL Hct (34.0-46.0) % RDW (11.5-15.5) % Neutrophils # (1.3-7.7) k/uL Lymphocytes # (1.0-4.8) k/uL APTT 20.4 L (22.0-30.0) sec Potassium (3.5-5.1) mmol/L Carbon Dioxide (22-30) mmol/L BUN (7-17) mg/dL Glucose (74-99) mg/dL Total Creatine Kinase (30-135) U/L Total Protein (6.3-8.2) g/dL Assessment and Plan Plan: -Acute on chronic hypercapnic respiratory failure secondary to COPD exacerbation patient will be continued on systemic steroids inhalational treatments. -Lung cancer oncology will be consulted patient misstepped chemotherapy today because of this shortness of breath -Depression continue with Cymbalta -Hypothyroidism for which patient is on methimazole will obtain TSH -Hypertension -Status post total nephrectomy for donation in the past -Hyperlipidemia-essential hypertension patient blood pressure is well controlled and is on amlodipine which will be resumed
[2018-07-25] MEDS: methylPREDNISolone SOD SUCCI 40 MG/ML 1 ML VIAL IV SCH (21:37)
[2018-07-25] MEDS: ALPRAZolam 0.5 MG TAB PO PRN (22:09)
[2018-07-25] MEDS: DOXYCYCLINE 100 MG CAP PO SCH (22:09)
[2018-07-25] MEDS: TEMAZEPAM 15 MG CAP PO SCH (22:09)
[2018-07-25] MEDS: ATORVASTATIN 10 MG TAB PO SCH (22:10)
[2018-07-25] MEDS: PANTOPRAZOLE 40 MG/10 ML VIAL IVP SCH (22:10)
[2018-07-25] MEDS: DOCUSATE 100 MG CAP PO SCH (22:21)
[2018-07-25] MEDS: SODIUM CHLORIDE 0.9% 1,000 ML IV SCH (22:25)
--- NOTE | 2018-07-25 22:39 | XR ---
EXAMINATION TYPE: XR abdomen 2V DATE OF EXAM: 07/25/2018 COMPARISON: 06/23/2018 HISTORY: Constipation TECHNIQUE: 2 views supine and upright FINDINGS: There is no sign of intestinal obstruction or pneumoperitoneum. Fecal pattern is normal. Th ere is elevated left diaphragm and left basilar atelectasis. There are no pathologic calcifications o santa the kidneys. IMPRESSION: Nonacute abdomen. There is probably no significant change compared to old exam.
[2018-07-26] MEDS: IPRATROPIUM-ALBUTEROL 3 ML NEB INHALATION SCH ×5 (03:49→19:31)
[2018-07-26] MEDS: SODIUM CHLORIDE 0.9% 1,000 ML IV SCH (05:25)
[2018-07-26] MEDS: methylPREDNISolone SOD SUCCI 40 MG/ML 1 ML VIAL IV SCH ×2 (07:28→22:03)
[2018-07-26] MEDS: PANTOPRAZOLE 40 MG/10 ML VIAL IVP SCH (07:28)
[2018-07-26] MEDS: CHOLECALCIFEROL 1,000 UNIT TAB PO SCH (07:29)
[2018-07-26] MEDS: METOPROLOL SUCCINATE (ER) 25 MG TAB.ER.24H PO SCH (07:29)
[2018-07-26] MEDS: amLODIPine 10 MG TAB PO SCH (07:29)
[2018-07-26] MEDS: DOXYCYCLINE 100 MG CAP PO SCH ×2 (07:29→22:02)
[2018-07-26] MEDS: DULoxetine HCL 60 MG CAPSULE.DR PO SCH (07:29)
[2018-07-26] MEDS: DOCUSATE 100 MG CAP PO SCH (07:29)
[2018-07-26] MEDS: METHIMAZOLE 5 MG TAB PO SCH (07:29)
[2018-07-26 07:48] LABS: Anisocytosis Moderate; HCT 26.3 % (34.0-46.0); HGB 8.2 gm/dL (11.4-16.0); MCH 28.2 pg (25.0-35.0); MCHC 31.3 g/dL (31.0-37.0); MCV 90.2 fL (80.0-100.0); Macrocytosis Slight; Mean Platelet Volume 6.1; Platelet Count 265 k/uL (150-450); RBC 2.92 m/uL (3.80-5.40); RDW 20.1 % (11.5-15.5); WBC 9.1 k/uL (3.8-10.6)
[2018-07-26 07:56] LABS: Anion Gap 4 mmol/L; Blood Urea Nitrogen 24 mg/dL (7-17); Calcium 9.4 mg/dL (8.4-10.2); Carbon Dioxide 33 mmol/L (22-30); Chloride 105 mmol/L (98-107); Glucose 146 mg/dL (74-99); Potassium 4.1 mmol/L (3.5-5.1); Sodium 142 mmol/L (137-145)
[2018-07-26] MEDS: HYDROcodone/APAP 10-325MG 1 EACH TAB PO PRN (08:25)
[2018-07-26 09:02] LABS: T4, Free (Free Thyroxine) 1.67 ng/dL (0.78-2.19)
[2018-07-26] MEDS: FORMOTEROL FUMARATE 20 MCG/2 ML NEBU INHALATION SCH ×2 (09:12→19:31)
--- NOTE | 2018-07-26 11:02 | CDI ---
Documentation Clarification Form Date: 07/26/2018 10:49:13 AM From: Shellie Welch RN, CCDS Admit Date: 07/25/2018 5:01:00 PM Patient Name: Keri Kern Visit Number: [id number] ATTENTION: The Clinical Documentation Specialists (CDI) and [facility] Coding Staff appreciate your assistance in clarifying documentation. Please respond to the clarification below the line at the bottom and electronically sign. The CDI & [facility] Coding staff will review the response and follow-up if needed. Please note: Queries are made part of the Legal Health Record. If you have any questions, please contact the author of this message via ITS. Dr. Farida Hanks A consistently low Hgb has been noted and lacks specificity to accurately reflect your patients severity of condition and clarification is needed. History/Risk Factors: HTN, Asthma, COPD, O2 dependant 3L NC, Lung Ca w/ chemo due 07/26/18, last radiation 07/17/18 Clinical indicators: 07/25 H&P: "Lung cancer oncology will be consulted patient misstepped chemotherapy today." Hemoglobin: 8.6/8.2 Hematocrit: 26.6/26.3 Treatment: Labs Monitoring In order to capture the severity of condition, please clarify the signficance of the low Hgb and etiology if known: Drug induced anemia Anemia due to malignancy Acute on chronic blood loss anemia Chronic blood loss anemia Iron deficiency anemia Nutritional anemia Anemia of chronic disease Unable to determine Other, please specify (Last Revision: March 2017) Anemia due to malignancy MTDD
[2018-07-26] MEDS: DULoxetine HCL 30 MG CAPSULE.DR PO SCH (13:05)
[2018-07-26] MEDS: ALPRAZolam 0.5 MG TAB PO PRN ×2 (15:02→22:03)
--- NOTE | 2018-07-26 15:20 | P.PN ---
Subjective 68-year-old admitted for COPD exacerbation patient is pretty status was bit worse yesterday. Oncology valid the patient today patient he remains on 5 L of oxygen. Constitutional: Denied any fatigue denied any fever. Cardio vascular: denied any chest pain, palpitations Gastrointestinal denied any nausea vomiting Pulmonary: As mentioned above Neurologic denied any new focal deficits All inpatient medications were reviewed and appropriate changes in these medications as dictated in the interval history and assessment and plan. Objective - Vital Signs Vital signs: Vital Signs Temp 98.0 F 07/26/18 12:20 Pulse 95 07/26/18 13:56 Resp 18 07/26/18 13:56 BP 142/81 07/26/18 12:20 Pulse Ox 95 07/26/18 12:20 Intake & Output 07/25/18 07/26/18 07/26/18 18:59 06:59 18:59 Intake Total 640 1020 Balance 640 1020 Weight 54.431 kg Intake: Intake, IV Titration 640 240 Amount Sodium Chloride 0.9% 1, 640 240 000 ml @ 80 mls/hr IV . [id number] ALEX Rx#:[id number] Oral 780 Other: Voiding Method Bedside Commode Bedside Commode # Voids 1 3 # Bowel Movements 1 - Exam PHYSICAL EXAMINATION: GENERAL: The patient is alert and oriented x3, not in any acute distress. Thin built female HEENT: Pupils are round and equally reacting to light. EOMI. No scleral icterus. No conjunctival pallor. Normocephalic, atraumatic. No pharyngeal erythema. No thyromegaly. CARDIOVASCULAR: S1 and S2 present. No murmurs, rubs, or gallops. PULMONARY: Decreased air entry with minimal expiratory wheezing I believe there is no improvement competitors yesterday ABDOMEN: Soft, nontender, nondistended, normoactive bowel sounds. No palpable organomegaly. MUSCULOSKELETAL: No joint swelling or deformity. EXTREMITIES: No cyanosis, clubbing, or pedal edema. NEUROLOGICAL: Gross neurological examination did not reveal any focal deficits. SKIN: No rashes. - Labs CBC & Chem 7: 07/26/18 06:58 07/26/18 06:58 Labs: Abnormal Lab Results - Last 24 Hours (Table) 07/26/18 07/26/18 Range/Units 06:58 06:58 RBC 2.92 L (3.80-5.40) m/uL Hgb 8.2 L (11.4-16.0) gm/dL Hct 26.3 L (34.0-46.0) % RDW 20.1 H (11.5-15.5) % Carbon Dioxide 33 H (22-30) mmol/L BUN 24 H (7-17) mg/dL Glucose 146 H (74-99) mg/dL TSH <0.015 L (0.465-4.680) mIU/L Assessment and Plan Plan: -Acute on chronic hypercapnic respiratory failure secondary to COPD exacerbation patient will be continued on systemic steroids inhalational treatments. 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
--- NOTE | 2018-07-26 17:35 | P.CONS ---
History of Present Illness - Reason for Consult Consult date: 07/26/18 SCLC, MAYELIN Requesting physician: Farida Hanks - Chief Complaint MAYELIN - History of Present Illness Mrs. Kern is a very pleasant female pt of Dr. Varghese initially seen in consult at [facility] on 05/15/18 for new lung mass when she presented with progressive SOB. She had CTA 05/14/18, negative for PE but incidentially a 6.9 x 6.1 x 8.9 cm left hilar mass was found, with collapse of the LLL, 1.[address], [address] mass, severe emphysema and granulomatous disease in the spleen. On 05/17/18 she had bronch and biopsy with Dr. Sánchez, path positive for small cell lung cancer, staging CT AP () showed no other disease, bone scan (05/19) and brain MRI (05/19) were also negative. 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 She is seen in the office on 06/05/18 for 1st visit and chemo education. She has had 2 cycles of chemo, due for cycle 3 today. Pt was having progressive SOB, MAYELIN, she is also having and pain and cramping, denied fever, nausea, vomiting, chest pain, dysuria, bleeding, swelling, she is getting progressively weaker. Review of Systems 14 Point ROS is negative as stated in HPI Past Medical History Past Medical History: Asthma, Cancer, COPD, Hyperlipidemia, Hypertension, Pneumonia, Thyroid Disorder Additional Past Medical History / Comment(s): ecent UTI-now resolved, 2016 resp arrest, on vent here FEB 2017-resp. failure-on vent. in [place] visiting brother-[facility] rehab after, O2 dependent- 3L/NC continuously, pneumonia 2010, acute trachebronchitis, chronic lt shoulder pain, DJD, bowel obstruction , donated R kidney to son, post colonoscopy with. polypectomy bleed and was in ICU, Graves disease, hx uti-ecoli 06-08-18 ,thoracic aortic anuerysm -being monitored. lung cancer pt stated due for chemo 07-26-18 and had radiation ".pt stated they put a stent in my lung" History of Any Multi-Drug Resistant Organisms: None Reported Past Surgical History: Cholecystectomy, Hysterectomy, Orthopedic Surgery Additional Past Surgical History / Comment(s): R nephrectomy, 2012 laparotomy with lysis of adhesions from kidney surgery causing bowel obstruction. L shoulder and collar bone surgery, colonoscopy with polypectomy, cataract surg- lens implants. Past Anesthesia/Blood Transfusion Reactions: No Reported Reaction Additional Past Anesthesia/Blood Transfusion Reaction / Comm: Pt has never received blood. Past Psychological History: Depression Smoking Status: Former smoker Past Alcohol Use History: None Reported Past Drug Use History: None Reported - Past Family History Father Family Medical History: Cancer Additional Family Medical History / Comment(s): Pancreatic cancer and passed when he was 58 Mother Family Medical History: No Reported History Additional Family Medical History / Comment(s): None Medications and Allergies Home Medications Medication Instructions Recorded Confirmed Type DULoxetine HCL [Cymbalta] 60 mg PO DAILY@0800 03/25/17 07/25/18 History Metoprolol Succinate [Toprol XL] 25 mg PO DAILY 03/25/17 07/25/18 History Hydrocodone/Acetaminophen [[place] 1 tab PO Q6H PRN 07/08/17 07/25/18 History 10-325] Atorvastatin [Lipitor] 10 mg PO HS 09/20/17 07/25/18 History DULoxetine HCL [Cymbalta] 30 mg PO DAILY@1400 03/06/18 07/25/18 History Cholecalciferol [Vitamin D3] 1,000 unit PO DAILY 05/14/18 07/25/18 History Loperamide [Imodium] 2 mg PO DAILY PRN 05/14/18 07/25/18 History Ipratropium-Albuterol Nebulize 3 ml INHALATION RT-QID 06/22/18 07/25/18 History [Duoneb 0.5 mg-3 mg/3 ml Soln] ALPRAZolam [Xanax] 0.5 mg PO BID PRN 07/25/18 07/25/18 History Arformoterol Tartrate [Brovana] 15 mcg INHALATION RT-BID 07/25/18 07/25/18 History Methimazole [Tapazole] 5 mg PO DAILY 07/25/18 07/25/18 History Temazepam [Restoril] 15 mg PO HS 07/25/18 07/25/18 History amLODIPine BESYLATE [Norvasc] 10 mg PO DAILY 07/25/18 07/25/18 History Allergies Allergy/AdvReac Type Severity Reaction Status Date / Time Influenza Virus Vaccines Allergy Dyspnea Verified 06/22/18 09:13 hydromorphone [From Dilaudid] AdvReac Hallucinati Verified 06/22/18 09:13 ons Physical Exam Vitals: Vital Signs Temp Pulse Pulse Pulse Resp BP BP 07/26/18 16:10 100 07/26/18 16:00 98 07/26/18 13:56 98 95 18 07/26/18 12:43 104 H 07/26/18 12:30 104 H 07/26/18 12:20 98.0 F 98 18 142/81 07/26/18 09:34 102 H 07/26/18 09:23 104 H 07/26/18 09:22 100 07/26/18 09:12 103 H 07/26/18 04:54 97.8 F 95 20 132/88 07/26/18 00:00 72 22 07/25/18 23:28 102 H 07/25/18 23:21 07/25/18 23:20 100 07/25/18 20:30 97.6 F 69 24 120/67 07/25/18 19:49 101 H 07/25/18 19:47 07/25/18 19:43 102 H 07/25/18 19:38 101 H 07/25/18 18:14 100 23 123/75 07/25/18 17:30 100 23 123/75 Pulse Ox 07/26/18 16:10 07/26/18 16:00 94 L 07/26/18 13:56 07/26/18 12:43 07/26/18 12:30 07/26/18 12:20 95 07/26/18 09:34 07/26/18 09:23 07/26/18 09:22 07/26/18 09:12 07/26/18 04:54 95 07/26/18 00:00 07/25/18 23:28 07/25/18 23:21 91 L 07/25/18 23:20 07/25/18 20:30 94 L 07/25/18 19:49 07/25/18 19:47 89 L 07/25/18 19:43 07/25/18 19:38 07/25/18 18:14 07/25/18 17:30 Intake and Output 07/26/18 07/26/18 07/26/18 06:59 14:59 22:59 Intake Total 1020 Balance 1020 Intake: Intake, IV Titration 240 Amount Sodium Chloride 0.9% 1, 240 000 ml @ 80 mls/hr IV . [id number] ALEX Rx#:[id number] Oral 780 Other: Voiding Method Bedside Commode Bedside Commode # Voids 1 3 # Bowel Movements 1 - Constitutional General appearance: cooperative, mild distress, obese - EENT Eyes: anicteric sclerae, EOMI ENT: hearing grossly normal, normal oropharynx - Neck Neck: no lymphadenopathy - Respiratory Respiratory: right: rhonchi, wheezing, bilateral: diminished - Cardiovascular Rhythm: regular Heart sounds: normal: S1, S2 Abnormal Heart Sounds: no systolic murmur, no diastolic murmur, no rub, no S3 Gallop, no S4 Gallop, no click, no other leg Peripheral Edema: bilateral: None - Gastrointestinal General gastrointestinal: no absent bowel sounds, no decreased bowel sounds, no distended, no hepatomegaly, no hyperactive bowel sounds, normal bowel sounds, no organomegaly, no rigid, no scaphoid, soft, no splenomegaly, no tenderness, no umbilical hernia, no ventral hernia - Integumentary Integumentary: pale - Neurologic Neurologic: CNII-XII intact - Musculoskeletal Musculoskeletal: generalized weakness - Psychiatric Psychiatric: A&O x's 3, appropriate affect, intact judgment & insight Results CBC & Chem 7: 07/26/18 06:58 07/26/18 06:58 Labs: Abnormal Lab Results - Last 24 Hours (Table) 07/26/18 07/26/18 Range/Units 06:58 06:58 RBC 2.92 L (3.80-5.40) m/uL Hgb 8.2 L (11.4-16.0) gm/dL Hct 26.3 L (34.0-46.0) % RDW 20.1 H (11.5-15.5) % Carbon Dioxide 33 H (22-30) mmol/L BUN 24 H (7-17) mg/dL Glucose 146 H (74-99) mg/dL TSH <0.015 L (0.465-4.680) mIU/L Microbiology - Last 24 Hours (Table) 07/25/18 13:50 Blood Culture - Preliminary Blood No Growth after 24 hours Chest x-ray: report reviewed Abdominal x-ray: report reviewed Assessment and Plan (1) Acute exacerbation of chronic obstructive airways disease Narrative/Plan: Pt is being treated for the same. Did consult Pulmonary. Pt has a bronchial stent and previously this was not able to be evaluated due to instability of resp status. Unclear if manipulation of this stent or bronch to evaluate for mucus plugging or other etiology is even feasible so, Pulmonary evaluation is appreciated. Current Visit: Yes Status: Acute Priority: High Code(s): J44.1 - CHRONIC OBSTRUCTIVE PULMONARY DISEASE W (ACUTE) EXACERBATION SNOMED Code(s): 050283629 (2) Normocytic anemia Narrative/Plan: No acute intervention. Last iron studies are from 2016, will repeat. Transfuse for Hgb<7 or if symptomatic Current Visit: No Status: Chronic Priority: Medium Code(s): D64.9 - ANEMIA , UNSPECIFIED SNOMED Code(s): 600857913 (3) Small cell lung cancer Narrative/Plan: Pt last treatment was Jun 28-, second cycle of carbo/[employer]. Did discuss case with Dr. Olivares. Pt was not able to tolerate concurrent chemo radiation. Pt has had trouble tolerating treatment both physically and hematologically. She was due to start cycle #3 today. Her treatment dose will likely have to be adjusted for tolerance if plans are to continue therapy. Case will be discussed with primary Oncologist. Treatment on hold for now Current Visit: Yes Status: Chronic Priority: High Code(s): C34.90 - MALIGNANT NEOPLASM OF UNSP PART OF UNSP BRONCHUS OR LUNG SNOMED Code(s): 780182415 (4) Physical debility Narrative/Plan: PT/OT ordered. Pt would benefit from rehab, if she qualifies. Will request rehab eval once pt condition is a little better. This would certainly put her in better shape to be considered for ongoing treatment of malignancy. Current Visit: Yes Status: Acute Priority: High Code(s): R53.81 - OTHER MALAISE SNOMED Code(s): 47036788
[2018-07-26] MEDS: TEMAZEPAM 15 MG CAP PO SCH (22:02)
[2018-07-26] MEDS: ATORVASTATIN 10 MG TAB PO SCH (22:02)
[2018-07-27] MEDS: IPRATROPIUM-ALBUTEROL 3 ML NEB INHALATION SCH ×7 (00:38→23:40)
[2018-07-27] MEDS: HYDROcodone/APAP 10-325MG 1 EACH TAB PO PRN ×2 (03:30→10:42)
[2018-07-27] MEDS: FORMOTEROL FUMARATE 20 MCG/2 ML NEBU INHALATION SCH ×3 (08:41→19:52)
[2018-07-27] MEDS: methylPREDNISolone SOD SUCCI 40 MG/ML 1 ML VIAL IV SCH (09:05)
[2018-07-27 10:19] VITALS: BMI 21.2
[2018-07-27] MEDS: METOPROLOL SUCCINATE (ER) 25 MG TAB.ER.24H PO SCH (10:41)
[2018-07-27] MEDS: METHIMAZOLE 5 MG TAB PO SCH (10:41)
[2018-07-27] MEDS: DULoxetine HCL 60 MG CAPSULE.DR PO SCH (10:41)
[2018-07-27] MEDS: DOCUSATE 100 MG CAP PO SCH (10:43)
[2018-07-27] MEDS: amLODIPine 10 MG TAB PO SCH (10:44)
[2018-07-27] MEDS: CHOLECALCIFEROL 1,000 UNIT TAB PO SCH (10:44)
[2018-07-27] MEDS: PANTOPRAZOLE 40 MG TABLET PO SCH ×2 (10:44→20:34)
[2018-07-27] MEDS: DOXYCYCLINE 100 MG CAP PO SCH ×2 (10:46→20:41)
[2018-07-27] MEDS: DULoxetine HCL 30 MG CAPSULE.DR PO SCH (15:59)
--- NOTE | 2018-07-27 17:26 | P.PN ---
Subjective Progress Note Date: 07/27/18 Principal diagnosis: metastatic SCLC Pt seen in f/u, she states she is breathing better, She is expectorating thick sputum. She is worried about her treatment yesterday, fearing she is going to have to "start over". Patient denies fevers, nausea, appetite is fair, no acute changes in bowel habits Objective - Vital Signs Vital signs: Vital Signs Temp 97.7 F 07/27/18 12:12 Pulse 102 H 07/27/18 16:42 Resp 16 07/27/18 12:12 BP 137/82 07/27/18 12:12 Pulse Ox 92 L 07/27/18 12:12 Intake & Output 07/26/18 07/27/18 07/27/18 18:59 06:59 18:59 Intake Total 1020 310 Balance 1020 310 Weight 54.431 kg Intake: Intake, IV Titration 240 70 Amount Sodium Chloride 0.9% 1, 240 70 000 ml @ 80 mls/hr IV . [id number] ALEX Rx#:[id number] Oral 780 240 Other: Voiding Method Bedside Commode Bedside Commode # Voids 3 2 3 - Constitutional General appearance: Present: cooperative, mild distress, thin - EENT Eyes: Present: anicteric sclerae, EOMI ENT: Present: hearing grossly normal - Respiratory Respiratory: right: rales (base), left: diminished (lower lobe) - Cardiovascular Heart sounds: normal: S1, S2 - Peripheral edema leg Peripheral Edema: bilateral: None - Gastrointestinal General gastrointestinal: Present: normal bowel sounds, soft - Musculoskeletal Musculoskeletal: Present: generalized weakness - Psychiatric Psychiatric Comment(s): Patient is alert, she is oriented to self, place, time, she gets confused on events and she is forgetful of things we recently spoke of. At one point I was concerned that she wasn't even understanding our conversation but, on further questioning she was actually lucid - Labs CBC & Chem 7: 07/26/18 06:58 07/26/18 06:58 Labs: Microbiology - Last 24 Hours (Table) 07/25/18 13:50 Blood Culture - Preliminary Blood No Growth after 48 hours Assessment and Plan (1) Acute exacerbation of chronic obstructive airways disease Narrative/Plan: Pt is being treated for the same, some improvement today Current Visit: Yes Status: Acute Priority: High Code(s): J44.1 - CHRONIC OBSTRUCTIVE PULMONARY DISEASE W (ACUTE) EXACERBATION SNOMED Code(s): 839588183 (2) Normocytic anemia Narrative/Plan: No acute intervention. Last iron studies are from 2016, will repeat. Transfuse for Hgb<7 or if symptomatic Current Visit: No Status: Chronic Priority: Medium Code(s): D64.9 - ANEMIA , UNSPECIFIED SNOMED Code(s): 409234678 (3) Small cell lung cancer Narrative/Plan: Pt last treatment was Jun 28-, second cycle of carbo/[employer]. Assured patient she does not have to start chemotherapy over. Pt has had trouble tolerating treatment both physically and hematologically, she has been hospitalized after both cycles. She was due to start cycle #3 yesterday. Her treatment dose will likely have to be adjusted for tolerance if plans are to continue therapy. Case will be discussed with primary Oncologist. Treatment on hold for now, Appt sched for next week in office Current Visit: Yes Status: Chronic Priority: High Code(s): C34.90 - MALIGNANT NEOPLASM OF UNSP PART OF UNSP BRONCHUS OR LUNG SNOMED Code(s): 372149588 (4) Physical debility Narrative/Plan: PT/OT ordered. Pt could benefit from rehab if she remains debilitated. Current Visit: Yes Status: Acute Priority: High Code(s): R53.81 - OTHER MALAISE SNOMED Code(s): 98534813
[2018-07-27] MEDS: methylPREDNISolone SOD SUCCI 125 MG/2 ML VIAL IV SCH ×2 (18:15→23:42)
--- NOTE | 2018-07-27 18:25 | P.PN ---
Subjective Progress Note Date: 07/27/18 Hospital course:68-year-old admitted for COPD exacerbation patient is pretty status was bit worse yesterday. Oncology valid the patient today patient he remains on 5 L of oxygen. 07/27/2018 feels better today. O2 weaned down to 4 L nasal cannula, maintaining O2 sats in the low 90s. Mild tachycardia. Afebrile. Normal WBC. Reports productive cough, yellow sputum. Constitutional: Positive fatigue denied any fever. Cardio vascular: denied any chest pain, palpitations Gastrointestinal denied any nausea vomiting Pulmonary: As mentioned above Neurologic denied any new focal deficits Active Medications Hydrocodone Bitart/Acetaminophen ([place] 10) 1 each PO Q6H PRN PRN Reason: Pain Last Admin: 07/27/18 10:42 Dose: 1 each Albuterol/Ipratropium (Duoneb 0.5 Mg-3 Mg/3 Ml Soln) 3 ml INHALATION RT-Q4H [facility] Last Admin: 07/27/18 16:31 Dose: 3 ml Alprazolam (Xanax) 0.5 mg PO BID PRN PRN Reason: Anxiety Last Admin: 07/26/18 22:03 Dose: 0.5 mg Amlodipine Besylate (Norvasc) 10 mg PO DAILY [facility] Last Admin: 07/27/18 10:44 Dose: 10 mg Atorvastatin Calcium (Lipitor) 10 mg PO HS [facility] Last Admin: 07/26/18 22:02 Dose: 10 mg Budesonide (Pulmicort) 1 mg INHALATION RT-BID [facility] Cholecalciferol (Vitamin D3) 1,000 unit PO DAILY [facility] Last Admin: 07/27/18 10:44 Dose: 1,000 unit Docusate Sodium (Colace) 100 mg PO DAILY [facility] Last Admin: 07/27/18 10:43 Dose: 100 mg Doxycycline Monohydrate (Vibramycin) 100 mg PO BID [facility] Last Admin: 07/27/18 10:46 Dose: 100 mg Duloxetine HCl (Cymbalta) 60 mg PO DAILY@0800 [facility] Last Admin: 07/27/18 10:41 Dose: 60 mg Duloxetine HCl (Cymbalta) 30 mg PO DAILY@1400 [facility] Last Admin: 07/27/18 15:59 Dose: 30 mg Formoterol Fumarate (Perforomist) 20 mcg INHALATION RT-BID [facility] Last Admin: 07/27/18 08:41 Dose: 20 mcg Formoterol Fumarate (Perforomist) 20 mcg INHALATION RT-BID [facility] Loperamide HCl (Imodium) 2 mg PO DAILY PRN PRN Reason: Diarrhea Methimazole (Tapazole) 5 mg PO DAILY [facility] Last Admin: 07/27/18 10:41 Dose: 5 mg Methylprednisolone Sodium Succinate (Solu-Medrol) 60 mg IV Q6HR [facility] Last Admin: 07/27/18 18:15 Dose: 60 mg Metoprolol Succinate (Toprol Xl) 25 mg PO DAILY [facility] Last Admin: 07/27/18 10:41 Dose: 25 mg Pantoprazole Sodium (Protonix) 40 mg PO BID [facility] Last Admin: 07/27/18 10:44 Dose: 40 mg Temazepam (Restoril) 15 mg PO HS [facility] Last Admin: 07/26/18 22:02 Dose: 15 mg Objective - Vital Signs Vital signs: Vital Signs Temp 97.7 F 07/27/18 12:12 Pulse 102 H 07/27/18 16:42 Resp 16 07/27/18 12:12 BP 137/82 07/27/18 12:12 Pulse Ox 92 L 07/27/18 12:12 Intake & Output 07/26/18 07/27/18 07/27/18 18:59 06:59 18:59 Intake Total 1020 310 Balance 1020 310 Weight 54.431 kg Intake: Intake, IV Titration 240 70 Amount Sodium Chloride 0.9% 1, 240 70 000 ml @ 80 mls/hr IV . [id number] [facility] Rx#:[id number] Oral 780 240 Other: Voiding Method Bedside Commode Bedside Commode # Voids 3 2 3 - Exam GENERAL: Frail, thin built female lying on side sitting up in bed , alert and oriented x3, occasional mild confusion-that she was at [facility]. HEENT: Pupils are round and equally reacting to light. EOMI. No scleral icterus. No conjunctival pallor. Normocephalic, atraumatic. CARDIOVASCULAR: S1 and S2 present. Mild tachycardia, No murmurs, rubs, or gallops. PULMONARY: Decreased air entry with minimal expiratory wheezing, fine bibasilar crackles ABDOMEN: Soft, nontender, nondistended, normoactive bowel sounds. No palpable organomegaly. MUSCULOSKELETAL: No joint swelling or deformity. EXTREMITIES: No cyanosis, clubbing, or pedal edema. NEUROLOGICAL: Gross neurological examination did not reveal any focal deficits. SKIN: No rashes. - Labs CBC & Chem 7: 07/26/18 06:58 07/26/18 06:58 Labs: Microbiology - Last 24 Hours (Table) 07/25/18 13:50 Blood Culture - Preliminary Blood No Growth after 48 hours Assessment and Plan Assessment: -Acute on chronic hypercapnic respiratory failure secondary to COPD exacerbation patient will be continued on systemic steroids inhalational treatments. 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 PT/OT. Chemotherapy treatment currently on hold. Maintain nebulized bronchodilator, steroids. Patient states that Dr. Gilbert discussing bronchoscopy, patient weary about proceeding with the procedure as all her family are away. Prognosis guarded given multiple complex medical issues. The impression and plan of care has been dictated as directed. : I performed a history and examination of this patient, discussed the same with the dictator. I agree with the dictator's note ,documented as a scribe. Any additional findings or plans will be noted.
--- NOTE | 2018-07-27 18:29 | CONS ---
CONSULTATION PULMONARY/CRITICAL CARE CONSULTATION: DATE OF SERVICE: 07/27/2018 REASON FOR CONSULTATION: Shortness of breath. This is a 68-year-old female with a history of small-cell lung cancer. She also has a history of underlying COPD. She has been in and out of the hospitals recently. Most recently she was in over at [facility] for a number of days. She was discharged and out of the hospital for 4 or 5 days, at which time she was readmitted here. She was brought in by EMS. She was complaining of profound shortness of breath. She was also coughing; not producing much or any phlegm. No fever or chills. No chest pain. No chest discomfort. No nausea, vomiting or diarrhea. She was given some updraft treatments and some prednisone, and that seemed to help things initially. The more she has been here, the more she has developed shortness of breath. I have not seen her for some time. My partner recently put a stent in her. The stent was placed in the left mainstem bronchus. Her chest x-ray did not show any acute disease; in fact, the chest x-ray looked quite good. We had sort of talked about doing a bronchoscopy on her, but she seems a little bit nervous about it, given her overall health and the fact that there are family members around to talk to. HOME MEDICATIONS: Include: 1. Cymbalta. 2. Toprol. 3. Lawrence. 4. Lipitor. 5. Vitamin D3. 6. Imodium. 7. DuoNeb. 8. Xanax. 9. Perforomist. 10.Tapazole. 11.Restoril. 12.Amlodipine. ALLERGIES: Include: 1. INFLUENZA VACCINE. 2. DILAUDID. PAST MEDICAL HISTORY: Includes: 1. COPD. 2. Hypertension. 3. Pneumonia. 4. Hyperthyroidism. 5. UTI. 6. Respiratory arrest. 7. Prolonged mechanical ventilation. 8. Chronic hypoxemic respiratory failure. 9. Tracheobronchitis. 10.Chronic shoulder pain. 11.Bowel obstruction. 12.DJD. 13.Status post donation of right kidney. SURGICAL HISTORY: Includes, among other things: 1. Colonoscopy. 2. Polypectomy. 3. Hysterectomy. 4. Cholecystectomy. 5. Orthopedic procedures. 6. Right nephrectomy. 7. Laparotomy with lysis of adhesions. 8. Some other surgical procedures. SOCIAL HISTORY: Positive for previous tobacco use. Denies any significant alcohol use or illicit drug use. FAMILY HISTORY: Positive for cancer as well. REVIEW OF SYSTEMS: CONSTITUTIONAL: General medical debility and weakness. HEENT: Negative. NEUROLOGIC: Negative. CARDIOVASCULAR: Negative. PULMONARY: Shortness of breath, chest tightness, wheezing, cough, phlegm production. GI: Negative. : Negative. RHEUMATOLOGIC/IMMUNOLOGIC: Negative. ENDOCRINOLOGIC: Negative. DERMATOLOGIC: Negative. PHYSICAL EXAMINATION: CURRENT VITAL SIGNS: Temperature 97.7, heart rate 100, respiratory rate 16, blood pressure 137/82, mean 100, four-liter saturation 92%. Appears in no acute distress. Does appear somewhat jittery and shaky. She has some mild conversational dyspnea. Nasal oxygen in place. HEENT examination is grossly unremarkable. She does have a bit of a culver face. NECK: Supple. Full range of motion. No adenopathy or thyromegaly. Neck veins are flat. Cardiovascular examination reveals mild tachycardia. Heart rate 105. It is regular. S1, S2 normal. Lungs reveal coarse inspiratory and expiratory rhonchi and wheezes. Breath sounds are diminished. There is prolongation on forced maneuver. The patient's adventitious lung sounds are more prominent on forced maneuver. Abdomen is soft. Bowel sounds are heard. Extremities are intact. No cyanosis, clubbing or edema. Skin without rash. Neurologic examination is brief but nonfocal. IMAGING/LABS: Chest x-ray shows no acute disease. Labs are reviewed. White count 9.1, down from 16.3, hemoglobin 8.2, hematocrit 26.3, and platelet count 265,000. PT and INR are normal. Sodium 142, potassium 4.1, chloride 105, CO2 33. Anion gap is 4. BUN and creatinine are 24 and 0.68. The patient's TSH was less than 0.015. Free T4 was 1.67. The rest of the labs look good. Medications are reviewed. ASSESSMENT: 1. Chronic obstructive pulmonary disease exacerbation complicated by purulent tracheobronchitis without jose pneumonia. 2. History of hypertension. 3. Pneumonia. 4. Hyperthyroidism/Graves disease. 5. History of urinary tract infection. 6. History of respiratory arrest, status post intubation and mechanical ventilation. 7. Small-cell lung cancer, status post only one round of chemotherapy and subsequent stenting of the left mainstem bronchus for obstruction. 8. Chronic hypoxemic respiratory failure. 9. Status post right kidney donation. 10.Bowel obstruction. 11.Graves disease. 12.Status post abdominal aortic aneurysm repair. 13.Throat cancer. PLAN: The patient looks reasonable. The patient was not really excited about having bronchoscopy. Will hold off for now. Will treat her in the standard fashion with bronchodilators, steroids and antibiotics. Hopefully she will turn around. Bronchoscopy might be considered down the road. MMODL / IJN: [id number] /
[2018-07-27] MEDS: BUDESONIDE 1 MG/2 ML NEBU INHALATION SCH (19:50)
[2018-07-27] MEDS: TEMAZEPAM 15 MG CAP PO SCH (20:34)
[2018-07-27] MEDS: ALPRAZolam 0.5 MG TAB PO PRN (20:34)
[2018-07-27] MEDS: ATORVASTATIN 10 MG TAB PO SCH (20:34)
[2018-07-28] MEDS: IPRATROPIUM-ALBUTEROL 3 ML NEB INHALATION SCH ×5 (03:09→19:42)
[2018-07-28] MEDS: HYDROcodone/APAP 10-325MG 1 EACH TAB PO PRN (04:20)
[2018-07-28] MEDS: ALPRAZolam 0.5 MG TAB PO PRN ×2 (05:01→20:04)
[2018-07-28] MEDS: methylPREDNISolone SOD SUCCI 125 MG/2 ML VIAL IV SCH ×4 (05:16→23:25)
[2018-07-28] MEDS: BUDESONIDE 1 MG/2 ML NEBU INHALATION SCH ×2 (07:19→19:42)
[2018-07-28] MEDS: FORMOTEROL FUMARATE 20 MCG/2 ML NEBU INHALATION SCH ×3 (07:19→19:42)
[2018-07-28] MEDS: DULoxetine HCL 60 MG CAPSULE.DR PO SCH (08:44)
[2018-07-28] MEDS: amLODIPine 10 MG TAB PO SCH (08:44)
[2018-07-28] MEDS: DOCUSATE 100 MG CAP PO SCH (08:45)
[2018-07-28] MEDS: DOXYCYCLINE 100 MG CAP PO SCH ×2 (08:45→20:46)
[2018-07-28] MEDS: CHOLECALCIFEROL 1,000 UNIT TAB PO SCH (08:45)
[2018-07-28] MEDS: METHIMAZOLE 5 MG TAB PO SCH (08:45)
[2018-07-28] MEDS: METOPROLOL SUCCINATE (ER) 25 MG TAB.ER.24H PO SCH (08:45)
[2018-07-28] MEDS: PANTOPRAZOLE 40 MG TABLET PO SCH ×2 (08:45→20:45)
--- NOTE | 2018-07-28 13:41 | P.PN ---
Subjective Progress Note Date: 07/28/18 Principal diagnosis: The patient is seen today 07/28/2018 in follow-up on the regular medical floor. She is currently awake and alert in no acute distress. Breathing easier today as compared to yesterday. She is now utilizing 5 L/m high flow nasal cannula to maintain O2 saturations in the 90s. She did have issues with increased anxiety last night and her Xanax needed to be increased. She denies any worsening shortness of breath, cough or congestion. She is hoping to go home. Blood cultures reveal no growth. She remains on DuoNeb inhalations, Pulmicort and Perforomist inhalations, IV Solu-Medrol. Antibiotics in the form of doxycycline. Objective - Vital Signs Vital signs: Vital Signs Temp 97.9 F 07/28/18 12:23 Pulse 109 H 07/28/18 12:23 Resp 18 07/28/18 12:23 BP 145/76 07/28/18 12:23 Pulse Ox 97 07/28/18 12:23 Intake & Output 07/27/18 07/28/18 07/28/18 18:59 06:59 18:59 Intake Total 600 Balance 600 Weight 54.431 kg Intake: Oral 600 Other: Voiding Method Bedside Commode Bedside Commode # Voids 3 1 2 - Exam GENERAL EXAM: Alert, comfortable in no apparent distress. On 5 L/m per nasal cannula. HEAD: Normocephalic. Hair loss secondary to chemotherapy. EYES: Normal reaction of pupils, equal size. NOSE: Clear with pink turbinates. THROAT: No erythema or exudates. NECK: No masses, no JVD. CHEST: No chest wall deformity. LUNGS: Equal air entry with few scattered rhonchi and expiratory wheeze. CVS: S1 and S2 normal with no audible murmur, regular rhythm. ABDOMEN: No hepatosplenomegaly, normal bowel sounds, no guarding or rigidity. SPINE: No scoliosis or deformity SKIN: No rashes CENTRAL NERVOUS SYSTEM: No focal deficits, tone is normal in all 4 extremities. EXTREMITIES: There is no peripheral edema. No clubbing, no cyanosis. Peripheral pulses are intact. - Labs CBC & Chem 7: 07/26/18 06:58 07/26/18 06:58 Labs: Microbiology - Last 24 Hours (Table) 07/25/18 13:50 Blood Culture - Preliminary Blood No Growth after 48 hours Assessment and Plan Assessment: Impression: #1 Acute on chronic hypoxemic respiratory failure secondary to an acute exacerbation of chronic obstructive pulmonary disease complicated by purulent tracheobronchitis without evidence of jose pneumonia. #2 Small cell lung cancer with postobstructive pneumonia status post stent placement to the left main bronchi. Status post 2 rounds of carbo/[employer] with subsequent hospitalizations after both secondary to physical and hematologic intolerance. #3 history of chronic tobacco dependence. #4 Previous history of respiratory arrest requiring intubation mechanical ventilatory support, recovered. #5 Hyperthyroidism/Graves' disease. #6 Status post right kidney donation. #7 History of bowel obstruction. #8 History of abdominal aortic aneurysm repair. #9 History of throat cancer. Plan: The patient was seen and evaluated by Dr. Gilbert. She continues to improve from the pulmonary standpoint. She is quite anxious to go home however based on her frequent readmissions she may benefit from subacute rehabilitation. The plan is to resume chemotherapy once stabilized. In the interim, we'll continue with her current treatment plan. We'll increase her activity as tolerated. We'll continue to follow. I, the cosigning physician, performed a history & physical examination of the patient. Lungs sounds with few scattered rhonchi, faint end expiratory wheeze, diminished. Maintaining good O2 saturations in the 90s on 5 L/m per nasal cannula I discussed the assessment and plan of care with my nurse practitioner, Sonia Schwab. I attest to the above note as dictated by her.
[2018-07-28] MEDS: DULoxetine HCL 30 MG CAPSULE.DR PO SCH (14:13)
--- NOTE | 2018-07-28 14:17 | P.PN ---
Subjective 68-year-old admitted for COPD exacerbation patient is pretty status was bit worse yesterday. Oncology valid the patient today patient he remains on 5 L of oxygen. 07/28/2018 Patient underwent respiratory distress required about 9 L of oxygen last night presently on 6 L patient all the respiratory status significantly improved with good air entry into bilateral lung gee very minimal wheezing possibility of discharge tomorrow. Patient uses 5 L at home Constitutional: Denied any fatigue denied any fever. Cardio vascular: denied any chest pain, palpitations Gastrointestinal denied any nausea vomiting Pulmonary: As mentioned above Neurologic denied any new focal deficits All inpatient medications were reviewed and appropriate changes in these medications as dictated in the interval history and assessment and plan. Objective - Vital Signs Vital signs: Vital Signs Temp 97.9 F 07/28/18 12:23 Pulse 109 H 07/28/18 12:23 Resp 18 07/28/18 12:23 BP 145/76 07/28/18 12:23 Pulse Ox 97 07/28/18 12:23 Intake & Output 07/27/18 07/28/18 07/28/18 18:59 06:59 18:59 Intake Total 600 Balance 600 Weight 54.431 kg Intake: Oral 600 Other: Voiding Method Bedside Commode Bedside Commode # Voids 3 1 2 - Exam PHYSICAL EXAMINATION: GENERAL: The patient is alert and oriented x3, not in any acute distress. Thin built female HEENT: Pupils are round and equally reacting to light. EOMI. No scleral icterus. No conjunctival pallor. Normocephalic, atraumatic. No pharyngeal erythema. No thyromegaly. CARDIOVASCULAR: S1 and S2 present. No murmurs, rubs, or gallops. PULMONARY: Minimal expiratory wheezing fairly good air entry into bilateral lung gee significant improvement compared to yesterday ABDOMEN: Soft, nontender, nondistended, normoactive bowel sounds. No palpable organomegaly. MUSCULOSKELETAL: No joint swelling or deformity. EXTREMITIES: No cyanosis, clubbing, or pedal edema. NEUROLOGICAL: Gross neurological examination did not reveal any focal deficits. SKIN: No rashes. - Labs CBC & Chem 7: 07/26/18 06:58 07/26/18 06:58 Labs: Microbiology - Last 24 Hours (Table) 07/25/18 13:50 Blood Culture - Preliminary Blood No Growth after 48 hours Assessment and Plan Plan: -Acute on chronic hypercapnic respiratory failure secondary to COPD exacerbation patient will be continued on systemic steroids inhalational treatments. -Lung cancer oncology following the patient -Depression continue with Cymbalta -Hypothyroidism for which patient is on methimazole patient's TSH is low T4 is within normal limits -Hypertension -Status post total nephrectomy for donation in the past -Hyperlipidemia-essential hypertension patient blood pressure is well controlled and is on amlodipine which will be resumed
[2018-07-28] MEDS ORDERED: ONDANSETRON 4 MG/2 ML VIAL IVP PRN (14:20)
--- NOTE | 2018-07-28 16:34 | P.PN ---
Subjective Progress Note Date: 07/28/18 Principal diagnosis: Small Cell Lung cancer, recurrent hypoxia Feeling better today. No acute events. Breathing is still challenged with activity, abdomen is feeling better able to tolerate po intake. Objective - Vital Signs Vital signs: Vital Signs Temp 97.9 F 07/28/18 12:23 Pulse 110 H 07/28/18 16:28 Resp 18 07/28/18 12:23 BP 145/76 07/28/18 12:23 Pulse Ox 97 07/28/18 12:23 Intake & Output 07/27/18 07/28/18 07/28/18 18:59 06:59 18:59 Intake Total 600 Balance 600 Weight 54.431 kg Intake: Oral 600 Other: Voiding Method Bedside Commode Bedside Commode # Voids 3 1 2 - Exam Constitutional General appearance: Present: cooperative, mild distress, thin - EENT Eyes: Present: anicteric sclerae, EOMI ENT: Present: hearing grossly normal - Respiratory Respiratory: right: rales (base), left: diminished (lower lobe) - Cardiovascular Heart sounds: normal: S1, S2 - Peripheral edema leg Peripheral Edema: bilateral: None - Gastrointestinal General gastrointestinal: Present: normal bowel sounds, soft - Musculoskeletal Musculoskeletal: Present: generalized weakness - Psychiatric Psychiatric Comment(s): Patient is alert, she is oriented to self, place, time, she gets confused on events and she is forgetful of things we recently spoke of. At one point I was concerned that she wasn't even understanding our conversation but, on further questioning she was actually lucid - Labs CBC & Chem 7: 07/26/18 06:58 07/26/18 06:58 Labs: Microbiology - Last 24 Hours (Table) 07/25/18 13:50 Blood Culture - Preliminary Blood No Growth after 72 hours Assessment and Plan Plan: Assessment and Plan (1) Acute exacerbation of chronic obstructive airways disease - Pt is being treated for the same, some improvement today - Pulmonary Following (2) Normocytic anemia - No acute intervention. Last iron studies are from 2017, will repeat. Transfuse for Hgb<7 or if symptomatic - Await CBC today, Monitor Daily (3) Small cell lung cancer - Pt last treatment was Jun 28-, second cycle of carbo/[employer]. - Assured patient she does not have to start chemotherapy over. - Pt has had trouble tolerating treatment both physically and hematologically, she has been hospitalized after both cycles. - She was due to start cycle #3 yesterday. Her treatment dose will likely have to be adjusted for tolerance if plans are to continue therapy. - Case discussed with Dr. Olivares from Radiation oncology, and consult placed as he is awaiting her improvement to continue further radiation. Posisble able to continue radiation while inpatient since chemotherapy will remain on hold. - Treatment on hold for now, Appt sched for next week in office (4) Physical debility - Chronic illness myopathy - PT/OT ordered. Pt could benefit from rehab if she remains debilitated. Johanna Gutierrez RETURN TO VENDOR
[2018-07-28 17:50] LABS: Albumin 3.7 g/dL (3.5-5.0); Calcium 10.1 mg/dL (8.4-10.2); Potassium 4.2 mmol/L (3.5-5.1); Total Bilirubin 0.6 mg/dL (0.2-1.3); Total Protein 5.7 g/dL (6.3-8.2)
[2018-07-28 17:55] LABS: Anisocytosis Slight; Basophils % (A) 0 %; Eosinophils % (A) 0 %; HCT 27.1 % (34.0-46.0); HGB 8.4 gm/dL (11.4-16.0); Hypochromasia Slight; Lymphocytes # (A) 0.1 k/uL (1.0-4.8); Lymphocytes % (A) 1 %; MCH 28.4 pg (25.0-35.0); MCHC 31.1 g/dL (31.0-37.0); MCV 91.3 fL (80.0-100.0); Macrocytosis Slight; Mean Platelet Volume 6.7; Monocytes # (A) 0.7 k/uL (0-1.0); Monocytes % (A) 5 %; Neutrophils # (A) 12.5 k/uL (1.3-7.7); Neutrophils % (A) 93 %; Platelet Count 235 k/uL (150-450); RBC 2.97 m/uL (3.80-5.40); RDW 19.8 % (11.5-15.5); WBC 13.4 k/uL (3.8-10.6)
[2018-07-28] MEDS: TEMAZEPAM 15 MG CAP PO SCH (20:45)
[2018-07-28] MEDS: ATORVASTATIN 10 MG TAB PO SCH (20:46)
[2018-07-28 22:52] LABS: Iron Saturation 30.8 (12.00-45.00)
[2018-07-29] MEDS: IPRATROPIUM-ALBUTEROL 3 ML NEB INHALATION SCH ×6 (00:13→19:11)
[2018-07-29] MEDS: methylPREDNISolone SOD SUCCI 125 MG/2 ML VIAL IV SCH ×4 (06:18→23:55)
[2018-07-29 07:50] LABS: Anisocytosis Moderate; Basophils % (A) 0 %; Eosinophils # (A) 0.1 k/uL (0-0.7); Eosinophils % (A) 0 %; HCT 26.1 % (34.0-46.0); HGB 8.4 gm/dL (11.4-16.0); Hypochromasia Slight; Lymphocytes # (A) 0.1 k/uL (1.0-4.8); Lymphocytes % (A) 1 %; MCH 29.4 pg (25.0-35.0); Macrocytosis Slight; Mean Platelet Volume 6.2; Monocytes # (A) 0.5 k/uL (0-1.0); Monocytes % (A) 4 %; Neutrophils # (A) 10.3 k/uL (1.3-7.7); Neutrophils % (A) 94 %; Platelet Count 205 k/uL (150-450); RBC 2.84 m/uL (3.80-5.40); RDW 20.5 % (11.5-15.5); WBC 10.9 k/uL (3.8-10.6)
[2018-07-29] MEDS: PANTOPRAZOLE 40 MG TABLET PO SCH ×2 (07:53→20:56)
[2018-07-29] MEDS: DOCUSATE 100 MG CAP PO SCH (07:53)
[2018-07-29] MEDS: METOPROLOL SUCCINATE (ER) 25 MG TAB.ER.24H PO SCH (07:53)
[2018-07-29] MEDS: amLODIPine 10 MG TAB PO SCH (07:53)
[2018-07-29] MEDS: CHOLECALCIFEROL 1,000 UNIT TAB PO SCH (07:53)
[2018-07-29] MEDS: DULoxetine HCL 60 MG CAPSULE.DR PO SCH (07:54)
[2018-07-29] MEDS: METHIMAZOLE 5 MG TAB PO SCH (07:54)
[2018-07-29] MEDS: DOXYCYCLINE 100 MG CAP PO SCH ×2 (07:55→20:56)
--- NOTE | 2018-07-29 08:15 | P.PN ---
Subjective Progress Note Date: 07/28/18 Principal diagnosis: hypoxia The patient is a 68 year old female with a history of limited stage small cell lung cancer of the left lung. She has completed 2 cycles of chemotherapy and approximately 2/3rds of her planned radiotherapy. However, she has spent the past 2 weeks hospitalized initially at [facility] and then shortly after discharge from there with readmission however this time at [facility]. According to the patient, today is the best she has felt in some time. Her O2 has been weaned down to 5L after previously having difficulty getting her off of high flow. She currently denies difficulty with chest-pain or odynophagia and she reports she is able to move around the room without becoming increasingly dyspneic. According to her son, earlier this week before she was re-admitted her performance status from home was very poort. She was unable to care for herself without becoming very short of breath. At this time, she was unsure if she wanted to finish her therapy for her cancer. Objective - Vital Signs Vital signs: Vital Signs Temp 98.3 F 07/29/18 05:00 Pulse 104 H 07/29/18 05:00 Resp 16 07/29/18 05:00 BP 133/82 07/29/18 05:00 Pulse Ox 98 07/29/18 05:00 Intake & Output 07/28/18 07/29/18 07/29/18 18:59 06:59 18:59 Intake Total 600 1180 Balance 600 1180 Intake: Oral 600 1180 Other: Voiding Method Bedside Commode Bedside Commode # Voids 2 2 - Constitutional General appearance: Present: no acute distress - EENT Eyes: Present: EOMI, PERRLA ENT: Present: NA/AT - Neck Neck: Absent: lymphadenopathy - Respiratory Respiratory: bilateral: rhonchi (however she is moving air in both lung gee) - Cardiovascular Rhythm: regular (slightly tachy) - Gastrointestinal General gastrointestinal: Present: soft. Absent: tenderness - Integumentary Integumentary: Present: calor - Neurologic Neurologic: Present: CNII-XII intact - Musculoskeletal Musculoskeletal: Present: strength equal bilaterally - Psychiatric Psychiatric: Present: A&O x's 3, appropriate affect - Labs CBC & Chem 7: 07/29/18 06:48 07/28/18 17:16 Labs: Abnormal Lab Results - Last 24 Hours (Table) 07/28/18 07/28/18 07/28/18 Range/Units 17:16 17:16 17:16 WBC 13.4 H (3.8-10.6) k/uL RBC 2.97 L (3.80-5.40) m/uL Hgb 8.4 L (11.4-16.0) gm/dL Hct 27.1 L (34.0-46.0) % RDW 19.8 H (11.5-15.5) % Neutrophils # 12.5 H (1.3-7.7) k/uL Lymphocytes # 0.1 L (1.0-4.8) k/uL BUN 56 H (7-17) mg/dL Glucose 149 H (74-99) mg/dL Ferritin 1142.2 H (10.0-291.0) ng/mL Total Protein 5.7 L (6.3-8.2) g/dL 07/29/18 Range/Units 06:48 WBC 10.9 H (3.8-10.6) k/uL RBC 2.84 L (3.80-5.40) m/uL Hgb 8.4 L (11.4-16.0) gm/dL Hct 26.1 L (34.0-46.0) % RDW 20.5 H (11.5-15.5) % Neutrophils # 10.3 H (1.3-7.7) k/uL Lymphocytes # 0.1 L (1.0-4.8) k/uL BUN (7-17) mg/dL Glucose (74-99) mg/dL Ferritin (10.0-291.0) ng/mL Total Protein (6.3-8.2) g/dL Microbiology - Last 24 Hours (Table) 07/25/18 13:50 Blood Culture - Preliminary Blood No Growth after 72 hours - Imaging and Cardiology Chest x-ray: report reviewed Abdominal x-ray: report reviewed Assessment and Plan Plan: 1. Hypoxia: Multifactorial - COPD exacerbation vs mucous plugging vs pneumonia. Currently improving on 5L. Patient reports improved ability to get up and move around the room without becoming nearly as dyspneic as she was previously. 2. Small cell lung cancer - I discussed with the patient that her 2+ week treatment break from radiotherapy is not optimal, but she is only 1 week behind on her chemotherapy. She has approximately 2 weeks left of radiation and does appear motivated to finish the recommended course. I discussed with her that her son was very concerned RE her recent poor performance status. She seems improved now and appears motivated to re-start therapy. We will re-assess her early next week regarding possible resumption of treatment. Time with Patient: Less than 30
[2018-07-29] MEDS: FORMOTEROL FUMARATE 20 MCG/2 ML NEBU INHALATION SCH ×2 (08:16→19:11)
[2018-07-29] MEDS: BUDESONIDE 1 MG/2 ML NEBU INHALATION SCH ×2 (08:16→19:11)
[2018-07-29] MEDS: ALPRAZolam 0.5 MG TAB PO PRN (11:38)
--- NOTE | 2018-07-29 12:30 | P.PN ---
Subjective Progress Note Date: 07/29/18 The patient still has generalized weakness, and shortness of breath. She feels somewhat better. She is bringing up whitish to dark green expectoration. No fever/chills/nausea/vomiting/obvious bleeding Objective - Vital Signs Vital signs: Vital Signs Temp 96.9 F L 07/29/18 12:07 Pulse 92 07/29/18 12:18 Resp 18 07/29/18 12:07 BP 135/75 07/29/18 12:07 Pulse Ox 95 07/29/18 12:07 Intake & Output 07/28/18 07/29/18 07/29/18 18:59 06:59 18:59 Intake Total 600 1180 Balance 600 1180 Intake: Oral 600 1180 Other: Voiding Method Bedside Commode Bedside Commode Bedside Commode # Voids 2 2 1 - Constitutional General appearance: Present: mild distress - EENT Eyes: Present: EOMI ENT: Present: hearing grossly normal, normal oropharynx - Respiratory Respiratory: bilateral: wheezing - Cardiovascular Rhythm: regular Heart sounds: normal: S1, S2 - Gastrointestinal General gastrointestinal: Present: normal bowel sounds, soft - Neurologic Neurologic: Present: CNII-XII intact - Musculoskeletal Musculoskeletal: Present: generalized weakness, strength equal bilaterally - Psychiatric Psychiatric: Present: A&O x's 3, appropriate affect - Labs CBC & Chem 7: 07/29/18 06:48 07/28/18 17:16 Labs: Abnormal Lab Results - Last 24 Hours (Table) 07/28/18 07/28/18 07/28/18 Range/Units 17:16 17:16 17:16 WBC 13.4 H (3.8-10.6) k/uL RBC 2.97 L (3.80-5.40) m/uL Hgb 8.4 L (11.4-16.0) gm/dL Hct 27.1 L (34.0-46.0) % RDW 19.8 H (11.5-15.5) % Neutrophils # 12.5 H (1.3-7.7) k/uL Lymphocytes # 0.1 L (1.0-4.8) k/uL BUN 56 H (7-17) mg/dL Glucose 149 H (74-99) mg/dL Ferritin 1142.2 H (10.0-291.0) ng/mL Total Protein 5.7 L (6.3-8.2) g/dL 07/29/18 Range/Units 06:48 WBC 10.9 H (3.8-10.6) k/uL RBC 2.84 L (3.80-5.40) m/uL Hgb 8.4 L (11.4-16.0) gm/dL Hct 26.1 L (34.0-46.0) % RDW 20.5 H (11.5-15.5) % Neutrophils # 10.3 H (1.3-7.7) k/uL Lymphocytes # 0.1 L (1.0-4.8) k/uL BUN (7-17) mg/dL Glucose (74-99) mg/dL Ferritin (10.0-291.0) ng/mL Total Protein (6.3-8.2) g/dL Microbiology - Last 24 Hours (Table) 07/25/18 13:50 Blood Culture - Preliminary Blood No Growth after 72 hours Assessment and Plan (1) Acute exacerbation of chronic obstructive airways disease Narrative/Plan: On exam, the patient still has diffuse wheezes. Imaging this admission, showed further improvement in obstructive pathology in the left lower lobe. Therefore her current episode appears to be related to COPD exacerbation/ tracheal bronchitis. The patient is improving with ongoing treatment, slowly, including steroids, breathing treatments, oxygen and antibiotics. Defer to the pulmonary service for continued management Current Visit: Yes Status: Acute Priority: High Code(s): J44.1 - CHRONIC OBSTRUCTIVE PULMONARY DISEASE W (ACUTE) EXACERBATION SNOMED Code(s): 111294465 (2) Small cell lung cancer Narrative/Plan: The patient has limited stage disease, and is being treated with curative intent. She has had 2 cycles of chemotherapy concurrent with radiation. She still has about 2 weeks of radiation remaining, as well as 2 additional chemotherapy cycles planned. However her decompensation after cycle 2 makes it unlikely that she will be able to tolerate concurrent treatment going forward. As she has had an excellent response to treatment so far, we would like to continue treatment, if her performance status improves sufficiently. Case was discussed with radiation oncology yesterday. At this time, assuming that the patient is able to improves sufficiently, the plan would be to resume radiation whenever possible and complete the remaining radiation treatments. Chemotherapy will not be given concurrently, but will be resumed after completion of radiation, assuming that her performance status is sufficient. The above plan was discussed with the patient. Current Visit: Yes Status: Chronic Priority: High Code(s): C34.90 - MALIGNANT NEOPLASM OF UNSP PART OF UNSP BRONCHUS OR LUNG SNOMED Code(s): 211832785 (3) Normocytic anemia Narrative/Plan: This is multifactorial, due to recent chemotherapy, subsequent infection, as well as ongoing acute illness. Hemoglobin is stable in a safe range. Continue to monitor with transfusion support if needed Current Visit: No Status: Chronic Priority: Medium Code(s): D64.9 - ANEMIA , UNSPECIFIED SNOMED Code(s): 845259665
[2018-07-29] MEDS: DULoxetine HCL 30 MG CAPSULE.DR PO SCH (12:52)
--- NOTE | 2018-07-29 13:03 | P.PN ---
Subjective Progress Note Date: 07/29/18 Principal diagnosis: Acute on chronic hypoxemic respiratory failure secondary to an acute exacerbation of chronic obstructive pulmonary disease, complicated by purulent tracheobronchitis without evidence of jose pneumonia. The patient is seen again today 07/29/2018 on the regular medical floor. She is currently awake and alert in no acute distress. Sitting up in bed. Her breathing is nearly back to her baseline. She does have small cell lung cancer with postobstructive pneumonias previous stent placement to the left main bronchi. This admission her chest x-ray shows no acute pulmonary process. She' s been maintained on DuoNeb inhalations, Pulmicort and Perforomist inhalations, IV Solu-Medrol. Antibiotics in the form of Vibramycin. She is nearly back to her baseline. Maintaining O2 saturations in the 90s on her home level of oxygen which is 5 L/m. Objective - Vital Signs Vital signs: Vital Signs Temp 96.9 F L 07/29/18 12:07 Pulse 92 07/29/18 12:18 Resp 18 07/29/18 12:07 BP 135/75 07/29/18 12:07 Pulse Ox 95 07/29/18 12:07 Intake & Output 07/28/18 07/29/18 07/29/18 18:59 06:59 18:59 Intake Total 600 1180 Balance 600 1180 Intake: Oral 600 1180 Other: Voiding Method Bedside Commode Bedside Commode Bedside Commode # Voids 2 2 1 - Exam GENERAL EXAM: Alert, comfortable in no apparent distress. On 5 L/m per nasal cannula. HEAD: Normocephalic. Hair loss secondary to chemotherapy. EYES: Normal reaction of pupils, equal size. NOSE: Clear with pink turbinates. THROAT: No erythema or exudates. NECK: No masses, no JVD. CHEST: No chest wall deformity. LUNGS: Equal air entry with few scattered rhonchi and expiratory wheeze. CVS: S1 and S2 normal with no audible murmur, regular rhythm. ABDOMEN: No hepatosplenomegaly, normal bowel sounds, no guarding or rigidity. SPINE: No scoliosis or deformity SKIN: No rashes CENTRAL NERVOUS SYSTEM: No focal deficits, tone is normal in all 4 extremities. EXTREMITIES: There is no peripheral edema. No clubbing, no cyanosis. Peripheral pulses are intact. - Labs CBC & Chem 7: 07/29/18 06:48 07/28/18 17:16 Labs: Abnormal Lab Results - Last 24 Hours (Table) 07/28/18 07/28/18 07/28/18 Range/Units 17:16 17:16 17:16 WBC 13.4 H (3.8-10.6) k/uL RBC 2.97 L (3.80-5.40) m/uL Hgb 8.4 L (11.4-16.0) gm/dL Hct 27.1 L (34.0-46.0) % RDW 19.8 H (11.5-15.5) % Neutrophils # 12.5 H (1.3-7.7) k/uL Lymphocytes # 0.1 L (1.0-4.8) k/uL BUN 56 H (7-17) mg/dL Glucose 149 H (74-99) mg/dL Ferritin 1142.2 H (10.0-291.0) ng/mL Total Protein 5.7 L (6.3-8.2) g/dL 07/29/18 Range/Units 06:48 WBC 10.9 H (3.8-10.6) k/uL RBC 2.84 L (3.80-5.40) m/uL Hgb 8.4 L (11.4-16.0) gm/dL Hct 26.1 L (34.0-46.0) % RDW 20.5 H (11.5-15.5) % Neutrophils # 10.3 H (1.3-7.7) k/uL Lymphocytes # 0.1 L (1.0-4.8) k/uL BUN (7-17) mg/dL Glucose (74-99) mg/dL Ferritin (10.0-291.0) ng/mL Total Protein (6.3-8.2) g/dL Microbiology - Last 24 Hours (Table) 07/25/18 13:50 Blood Culture - Preliminary Blood No Growth after 72 hours Assessment and Plan Assessment: Impression: #1 Acute on chronic hypoxemic respiratory failure secondary to an acute exacerbation of chronic obstructive pulmonary disease complicated by purulent tracheobronchitis without evidence of jose pneumonia. #2 Small cell lung cancer with postobstructive pneumonia status post stent placement to the left main bronchi. 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 #3 history of chronic tobacco dependence. #4 Previous history of respiratory arrest requiring intubation mechanical ventilatory support, recovered. #5 Hyperthyroidism/Graves' disease. #6 Status post right kidney donation. #7 History of bowel obstruction. #8 History of abdominal aortic aneurysm repair. #9 History of throat cancer. Plan: The patient was seen and evaluated by Dr. Gilbert. She is cleared for discharge from the pulmonary standpoint. Continue with her usual pulmonary medications. Complete a prednisone taper. Follow-up closely in our office with Dr. Sánchez. I, the cosigning physician, performed a history & physical examination of the patient. Lungs sounds with few scattered rhonchi, faint end expiratory wheeze, diminished. Maintaining good O2 saturations in the 90s on 5 L/m per nasal cannula I discussed the assessment and plan of care with my nurse practitioner, Sonia Schwab. I attest to the above note as dictated by her.
--- NOTE | 2018-07-29 14:11 | P.PN ---
Subjective 68-year-old admitted for COPD exacerbation patient is pretty status was bit worse yesterday. Oncology valid the patient today patient he remains on 5 L of oxygen. 07/28/2018 Patient underwent respiratory distress required about 9 L of oxygen last night presently on 6 L patient all the respiratory status significantly improved with good air entry into bilateral lung gee very minimal wheezing possibility of discharge tomorrow. Patient uses 5 L at home 07/29/2018 Patient the is at her baseline and on 5 L does have symptoms expiratory wheezing , she believes she'll need 1 more day of hospitalization does have some shortness of breath. Constitutional: Denied any fatigue denied any fever. Cardio vascular: denied any chest pain, palpitations Gastrointestinal denied any nausea vomiting Pulmonary: As mentioned above Neurologic denied any new focal deficits All inpatient medications were reviewed and appropriate changes in these medications as dictated in the interval history and assessment and plan. Objective - Vital Signs Vital signs: Vital Signs Temp 96.9 F L 07/29/18 12:07 Pulse 92 07/29/18 12:18 Resp 18 07/29/18 12:07 BP 135/75 07/29/18 12:07 Pulse Ox 95 07/29/18 12:07 Intake & Output 07/28/18 07/29/18 07/29/18 18:59 06:59 18:59 Intake Total 600 1180 Balance 600 1180 Intake: Oral 600 1180 Other: Voiding Method Bedside Commode Bedside Commode Bedside Commode # Voids 2 2 1 - Exam PHYSICAL EXAMINATION: GENERAL: The patient is alert and oriented x3, not in any acute distress. Thin built female HEENT: Pupils are round and equally reacting to light. EOMI. No scleral icterus. No conjunctival pallor. Normocephalic, atraumatic. No pharyngeal erythema. No thyromegaly. CARDIOVASCULAR: S1 and S2 present. No murmurs, rubs, or gallops. PULMONARY: Minimal expiratory wheezing fairly good air entry into bilateral lung gee significant improvement compared to yesterday ABDOMEN: Soft, nontender, nondistended, normoactive bowel sounds. No palpable organomegaly. MUSCULOSKELETAL: No joint swelling or deformity. EXTREMITIES: No cyanosis, clubbing, or pedal edema. NEUROLOGICAL: Gross neurological examination did not reveal any focal deficits. SKIN: No rashes. - Labs CBC & Chem 7: 07/29/18 06:48 07/28/18 17:16 Labs: Abnormal Lab Results - Last 24 Hours (Table) 07/28/18 07/28/18 07/28/18 Range/Units 17:16 17:16 17:16 WBC 13.4 H (3.8-10.6) k/uL RBC 2.97 L (3.80-5.40) m/uL Hgb 8.4 L (11.4-16.0) gm/dL Hct 27.1 L (34.0-46.0) % RDW 19.8 H (11.5-15.5) % Neutrophils # 12.5 H (1.3-7.7) k/uL Lymphocytes # 0.1 L (1.0-4.8) k/uL BUN 56 H (7-17) mg/dL Glucose 149 H (74-99) mg/dL Ferritin 1142.2 H (10.0-291.0) ng/mL Total Protein 5.7 L (6.3-8.2) g/dL 07/29/18 Range/Units 06:48 WBC 10.9 H (3.8-10.6) k/uL RBC 2.84 L (3.80-5.40) m/uL Hgb 8.4 L (11.4-16.0) gm/dL Hct 26.1 L (34.0-46.0) % RDW 20.5 H (11.5-15.5) % Neutrophils # 10.3 H (1.3-7.7) k/uL Lymphocytes # 0.1 L (1.0-4.8) k/uL BUN (7-17) mg/dL Glucose (74-99) mg/dL Ferritin (10.0-291.0) ng/mL Total Protein (6.3-8.2) g/dL Microbiology - Last 24 Hours (Table) 07/25/18 13:50 Blood Culture - Preliminary Blood No Growth after 72 hours Assessment and Plan Plan: -Acute on chronic hypercapnic respiratory failure secondary to COPD exacerbation patient will be continued on systemic steroids inhalational treatments. -Lung cancer oncology following the patient -Depression continue with Cymbalta -Hypothyroidism for which patient is on methimazole patient's TSH is low T4 is within normal limits -Hypertension -Status post total nephrectomy for donation in the past -Hyperlipidemia-essential hypertension patient blood pressure is well controlled and is on amlodipine which will be resumed
--- NOTE | 2018-07-29 14:52 | XR ---
EXAMINATION TYPE: XR foot limited LT DATE OF EXAM: 07/29/2018 CLINICAL HISTORY: Injured a few weeks ago with pain. TECHNIQUE: Frontal and lateral images of the left foot are obtained. COMPARISON: None FINDINGS: Demineralization is present which is noted to lower radiographic sensitivity. There is no acute fracture/dislocation evident in the left foot. Suspect old healed fracture distal diaphysis fif th metatarsal. Flexion in varus positioning distal third through fifth toes makes evaluation at this level suboptimal. Small inferior calcaneal spur is noted. Mild subcutaneous edema along plantar surfa ce hindfoot to midfoot level is present IMPRESSION: There is no acute fracture or dislocation in the left foot.
[2018-07-29] MEDS: HYDROcodone/APAP 10-325MG 1 EACH TAB PO PRN (19:16)
[2018-07-29] MEDS: ATORVASTATIN 10 MG TAB PO SCH (20:56)
[2018-07-29] MEDS: TEMAZEPAM 15 MG CAP PO SCH (20:56)
[2018-07-30] MEDS: IPRATROPIUM-ALBUTEROL 3 ML NEB INHALATION SCH ×4 (00:03→11:53)
[2018-07-30 05:25] VITALS: BP 118/72; RESP 16; TEMP 98.1
[2018-07-30] MEDS: HYDROcodone/APAP 10-325MG 1 EACH TAB PO PRN (05:35)
[2018-07-30] MEDS: methylPREDNISolone SOD SUCCI 125 MG/2 ML VIAL IV SCH (05:37)
[2018-07-30] MEDS: BUDESONIDE 1 MG/2 ML NEBU INHALATION SCH (08:06)
[2018-07-30] MEDS: FORMOTEROL FUMARATE 20 MCG/2 ML NEBU INHALATION SCH (08:06)
[2018-07-30] MEDS: amLODIPine 10 MG TAB PO SCH (08:17)
[2018-07-30] MEDS: CHOLECALCIFEROL 1,000 UNIT TAB PO SCH (08:17)
[2018-07-30] MEDS: METOPROLOL SUCCINATE (ER) 25 MG TAB.ER.24H PO SCH (08:17)
[2018-07-30] MEDS: DOCUSATE 100 MG CAP PO SCH (08:18)
[2018-07-30] MEDS: PANTOPRAZOLE 40 MG TABLET PO SCH (08:18)
[2018-07-30] MEDS: ALPRAZolam 0.5 MG TAB PO PRN ×2 (08:18→14:09)
[2018-07-30] MEDS: METHIMAZOLE 5 MG TAB PO SCH (08:22)
[2018-07-30] MEDS: DULoxetine HCL 60 MG CAPSULE.DR PO SCH (08:22)
[2018-07-30] MEDS: DOXYCYCLINE 100 MG CAP PO SCH (08:22)
--- NOTE | 2018-07-30 11:26 | P.PN ---
Subjective Progress Note Date: 07/30/18 Principal diagnosis: Acute on chronic hypoxemic respiratory failure secondary to an acute exacerbation of COPD, complicated by prolonged tracheobronchitis without evidence of jose pneumonia The patient is seen again today 07/29/2018 on the regular medical floor. She is currently awake and alert in no acute distress. Sitting up in bed. Her breathing is nearly back to her baseline. She does have small cell lung cancer with postobstructive pneumonias previous stent placement to the left main bronchi. This admission her chest x-ray shows no acute pulmonary process. She' s been maintained on DuoNeb inhalations, Pulmicort and Perforomist inhalations, IV Solu-Medrol. Antibiotics in the form of Vibramycin. She is nearly back to her baseline. Maintaining O2 saturations in the 90s on her home level of oxygen which is 5 L/m. On 07/30/2018 patient seen in follow-up on medical oncology floor. She sits up in bed, in no acute distress, she states her breathing is improving, she is currently on 5 L per nasal cannula, her pulse ox is 98%, she is afebrile, lung sounds are positive for a few expiratory wheezes, overall less bronchospastic and congested since admission. lab work has been reviewed, blood blood cell count is trending down, 10.9, hemoglobin is 8.4, no BMP was done. Blood culture showed no growth. Patient is on empiric antibiotics in the form of doxycycline, patient is on IV Solu-Medrol at 69 g every 6 hours, bronchodilators , improving. Objective - Vital Signs Vital signs: Vital Signs Temp 98.1 F 07/30/18 05:00 Pulse 96 07/30/18 08:30 Resp 16 07/30/18 05:00 BP 118/72 07/30/18 05:00 Pulse Ox 98 07/30/18 05:00 Intake & Output 07/29/18 07/30/18 07/30/18 18:59 06:59 18:59 Intake Total 840 Balance 840 Intake: Oral 840 Other: Voiding Method Bedside Commode Bedside Commode # Voids 1 2 - Exam GENERAL EXAM: Alert, doesn't, 68-year-old white female, currently on 5 L per nasal cannula, with a pulse ox of 98% comfortable in no apparent distress. HEAD: Normocephalic/atraumatic. EYES: Normal reaction of pupils, equal size. Conjunctiva pink, sclera white. NOSE: Clear with pink turbinates. THROAT: No erythema or exudates. NECK: No masses, no JVD, no thyroid enlargement, no adenopathy. CHEST: No chest wall deformity. Symmetrical expansion. LUNGS: Equal air entry with a few scattered end expiratory wheezes CVS: Regular rate and rhythm, normal S1 and S2, no gallops, no murmurs, no rubs ABDOMEN: Soft, nontender. No hepatosplenomegaly, normal bowel sounds, no guarding or rigidity. EXTREMITIES: No clubbing, no edema, no cyanosis, 2+ pulses and upper and lower extremities. MUSCULOSKELETAL: Muscle strength and tone normal. SPINE: No scoliosis or deformity SKIN: No rashes CENTRAL NERVOUS SYSTEM: Alert and oriented -3. No focal deficits, tone is normal in all 4 extremities. PSYCHIATRIC: Alert and oriented -3. Appropriate affect. Intact judgment and insight. - Labs CBC & Chem 7: 07/29/18 06:48 07/28/18 17:16 Labs: Microbiology - Last 24 Hours (Table) 07/25/18 13:50 Blood Culture - Preliminary Blood No Growth after 96 hours Assessment and Plan Plan: Assessment: #1 Acute on chronic hypoxemic respiratory failure secondary to an acute exacerbation of chronic obstructive pulmonary disease complicated by purulent tracheobronchitis without evidence of jose pneumonia. #2 Small cell lung cancer with postobstructive pneumonia status post stent placement to the left main bronchi. 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 #3 history of chronic tobacco dependence. #4 Previous history of respiratory arrest requiring intubation mechanical ventilatory support, recovered. #5 Hyperthyroidism/Graves' disease. #6 Status post right kidney donation. #7 History of bowel obstruction. #8 History of abdominal aortic aneurysm repair. #9 History of throat cancer. Plan: She is improving, breathing easier, less bronchospastic and congested. From pulmonary perspective patient could be considered for discharge home today, and a course of oral antibiotics, prednisone taper, and patient has home oxygen, nebulizer machine at home. We'll need follow-up with Dr. Sánchez in the office in 7-10 days. I performed a history & physical examination of the patient and discussed their management with my nurse practitioner, Cher Allen. I reviewed the nurse practitioner's note and agree with the documented findings and plan of care. Lung sounds are positive for some scattered wheezes. The findings and the impression was discussed with the patient. I attest to the documentation by the nurse practitioner. Time with Patient: Less than 30
[2018-07-30 12:12] VITALS: PULSE 105
--- NOTE | 2018-07-30 13:16 | P.DS ---
Providers Date of admission: 07/25/18 17:01 Attending physician: Farida Hanks Consults: 07/25/18 19:49 Consult Physician Routine Consulting Provider: Ishmael Varghese Consult Reason/Comments: Cancer and Chemo Patient Do you want consulting provider notified?: Already Contacted 07/26/18 13:18 Consult Physician Routine Consulting Provider: Piedad Sánchez Consult Reason/Comments: re-evaluate pulm stent Do you want consulting provider notified?: Yes 07/28/18 16:28 Consult Physician Routine Consulting Provider: Eduardo Olivares Consult Reason/Comments: current radiaiton therapy for cancer Do you want consulting provider notified?: Yes Primary care physician: [facility] Course: 68-year-old admitted for COPD exacerbation patient is pretty status was bit worse yesterday. Oncology valid the patient today patient he remains on 5 L of oxygen. 07/28/2018 Patient underwent respiratory distress required about 9 L of oxygen last night presently on 6 L patient all the respiratory status significantly improved with good air entry into bilateral lung gee very minimal wheezing possibility of discharge tomorrow. Patient uses 5 L at home 07/29/2018 Patient the is at her baseline and on 5 L does have symptoms expiratory wheezing , she believes she'll need 1 more day of hospitalization does have some shortness of breath. 07/30/2018 Patient is clinically doing well will be discharged today, no wheezing today PHYSICAL EXAMINATION: GENERAL: The patient is alert and oriented x3, not in any acute distress. Well developed, well nourished. HEENT: Pupils are round and equally reacting to light. EOMI. No scleral icterus. No conjunctival pallor. Normocephalic, atraumatic. No pharyngeal erythema. No thyromegaly. CARDIOVASCULAR: S1 and S2 present. No murmurs, rubs, or gallops. PULMONARY: Chest is clear to auscultation, no wheezing or crackles. ABDOMEN: Soft, nontender, nondistended, normoactive bowel sounds. No palpable organomegaly. MUSCULOSKELETAL: No joint swelling or deformity. EXTREMITIES: No cyanosis, clubbing, or pedal edema. NEUROLOGICAL: Gross neurological examination did not reveal any focal deficits. SKIN: No rashes. 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 predniSONE 10 mg PO DAILY #30 tab Continue Metoprolol Succinate [Toprol XL] 25 mg PO DAILY DULoxetine HCL [Cymbalta] 60 mg PO DAILY@0800 Hydrocodone/Acetaminophen [[place] 10-325] 1 tab PO Q6H PRN PRN Reason: Pain Atorvastatin [Lipitor] 10 mg PO HS DULoxetine HCL [Cymbalta] 30 mg PO DAILY@1400 Cholecalciferol [Vitamin D3] 1,000 unit PO DAILY Loperamide [Imodium] 2 mg PO DAILY PRN PRN Reason: Diarrhea Ipratropium-Albuterol Nebulize [Duoneb 0.5 mg-3 mg/3 ml Soln] 3 ml INHALATION RT-QID ALPRAZolam [Xanax] 0.5 mg PO BID PRN PRN Reason: Anxiety amLODIPine BESYLATE [Norvasc] 10 mg PO DAILY Arformoterol Tartrate [Brovana] 15 mcg INHALATION RT-BID Temazepam [Restoril] 15 mg PO HS Methimazole [Tapazole] 5 mg PO DAILY Discharge Medication List DULoxetine HCL [Cymbalta] 60 mg PO DAILY@0800 03/25/17 [History] Metoprolol Succinate [Toprol XL] 25 mg PO DAILY 03/25/17 [History] Hydrocodone/Acetaminophen [[place] 10-325] 1 tab PO Q6H PRN 07/08/17 [History] Atorvastatin [Lipitor] 10 mg PO HS 09/20/17 [History] DULoxetine HCL [Cymbalta] 30 mg PO DAILY@1400 03/06/18 [History] Cholecalciferol [Vitamin D3] 1,000 unit PO DAILY 05/14/18 [History] Loperamide [Imodium] 2 mg PO DAILY PRN 05/14/18 [History] Ipratropium-Albuterol Nebulize [Duoneb 0.5 mg-3 mg/3 ml Soln] 3 ml INHALATION RT -QID 06/22/18 [History] ALPRAZolam [Xanax] 0.5 mg PO BID PRN 07/25/18 [History] Arformoterol Tartrate [Brovana] 15 mcg INHALATION RT-BID 07/25/18 [History] Methimazole [Tapazole] 5 mg PO DAILY 07/25/18 [History] Temazepam [Restoril] 15 mg PO HS 07/25/18 [History] amLODIPine BESYLATE [Norvasc] 10 mg PO DAILY 07/25/18 [History] Budesonide-Formot 160-4.5 Mcg [Symbicort 160-4.5 Mcg Inhaler] 2 puff INHALATION BID #1 inhaler 07/29/18 [Rx] Doxycycline [Vibramycin] 100 mg PO BID #6 cap 07/29/18 [Rx] Omeprazole [PriLOSEC] 40 mg PO AC-BRKFST #14 capsule. 07/29/18 [Rx] predniSONE 10 mg PO DAILY #30 tab 07/29/18 [Rx] Follow up Appointment(s)/Referral(s): Chris Lopez DO [Primary Care Provider] - 3 Days Johanna Gutierrez ANPBC [Nurse Practitioner] - 08/01/18 1:00 pm Patient Instructions/Handouts: Doxycycline (By mouth), Prednisone (By mouth), Omeprazole (By mouth), Budesonide/Formoterol (By breathing), Lung Cancer (DC), COPD (Chronic Obstructive Pulmonary Disease) (DC) Activity/Diet/Wound Care/Special Instructions: diet as tolerated Limit activity until seen by DrSilvano Discharge Disposition: HOME WITH HOME HEALTH SERVICES
== END 2018-07-30 14:15 | disposition home health service (06) | DRG 190 ==
LOC: EC 13:30 → 3NMEDONC 17:01
PROVIDERS: ADMIT Hospitalist; ATTEND Hospitalist
DX: J43.9 Emphysema, unspecified (principal); J96.22 Acute and chronic respiratory failure with hypercapnia; J18.9 Pneumonia, unspecified organism; J96.21 Acute and chronic respiratory failure with hypoxia; C34.02 Malignant neoplasm of left main bronchus; D63.0 Anemia in neoplastic disease; F32.9 Major depressive disorder, single episode, unspecified; E78.5 Hyperlipidemia, unspecified; I10 Essential (primary) hypertension; M25.519 Pain in unspecified shoulder; M19.90 Unspecified osteoarthritis, unspecified site; E03.9 Hypothyroidism, unspecified; E05.00 Thyrotoxicosis with diffuse goiter without thyrotoxic crisis or storm; Z96.1 Presence of intraocular lens; T45.1X5A Adverse effect of antineoplastic and immunosuppressive drugs, initial encounter; F41.9 Anxiety disorder, unspecified; K66.8 Other specified disorders of peritoneum; Z79.899 Other long term (current) drug therapy; Z88.5 Allergy status to narcotic agent; Z88.7 Allergy status to serum and vaccine; Z87.891 Personal history of nicotine dependence; Z90.5 Acquired absence of kidney; Z87.440 Personal history of urinary (tract) infections; Z90.710 Acquired absence of both cervix and uterus; Z86.79 Personal history of other diseases of the circulatory system; Z85.819 Personal history of malignant neoplasm of unspecified site of lip, oral cavity, and pharynx; Z86.010 Personal history of colon polyps; Z92.3 Personal history of irradiation
CPT/HCPCS: 36415; 71046; 74019; 80048; 80053; 82550; 82553; 82728; 83540; 83550; 83735; 83880; 84439; 84443; 84484; 85025; 85027; 85610; 85730; 87040; 93005; 94640; 94760; 96361; 96365; 99291

== ENCOUNTER → 2018-08-07 | Outpatient (CLI) | payer MEDICARE ==
--- NOTE | 2018-08-07 13:27 | MR ---
EXAMINATION TYPE: MR brain wo/w con DATE OF EXAM: 08/07/2018 COMPARISON: MRI brain May 20, 2018 HISTORY: Gait abnormality /Nausea per order. History of lung cancer with dizziness per patient. TECHNIQUE: Multiplanar, multisequence images of the brain and brainstem is performed without and with IV contras t, utilizing 6 mL intravenous Gadavist . FINDINGS: Diffusion weighted images demonstrate no evidence of a recent infarct or other diffusion ab normality. There is no worrisome extra-axial fluid collection. There is ventricular and sulcal promi nence consistent with diffuse cerebral atrophy. There are scattered foci of T2 hyperintensity seen th roughout the white matter bilaterally. Lesions are nonspecific in appearance and distribution. Thin c ut 1 mm postcontrast axial images show significant artifact degradation making them suboptimal. No yanez spicious enhancing intraparenchymal lesions are clearly seen. Midline structures demonstrate normal morphology. The craniocervical junction appears within normal limits. The dural venous sinuses appear patent. Small air-fluid level left maxillary sinus is presen t. There is mild to moderate mucosal thickening involving right maxillary sinus with large 2.6 cm muc ous retention cyst or polyp filling posterior inferior aspect right maxillary sinus. IMPRESSION: 1. Background mild diffuse cerebral atrophy and moderate to advanced chronic small vessel ischemic ch jarred redemonstrated without significant interval change. 2. No new suspicious enhancing intraparenchymal masses are identified to suggest metastatic disease. Suboptimal thin 1 mm cuts noted. 3. New acute left maxillary sinus disease noted.
== END ==
LOC: RADMRIMAIN 09:27
PROVIDERS: ATTEND Internal Medicine Hematology & Oncology
DX: G31.1 Senile degeneration of brain, not elsewhere classified (principal); I67.82 Cerebral ischemia
CPT/HCPCS: 70553; A9585

== ENCOUNTER 2018-08-30 20:37 | Inpatient (IN) | payer MEDICARE ==
[2018-08-30] MEDS ORDERED: ALBUTEROL NEBULIZED 2.5 MG/3 ML INHALATION STA (20:45)
[2018-08-30] MEDS ORDERED: IPRATROPIUM 0.5 MG/2.5 ML NEBU INHALATION STA (20:45)
[2018-08-30] MEDS ORDERED: methylPREDNISolone SOD SUCCI 125 MG/2 ML VIAL IV STA (20:45)
--- NOTE | 2018-08-30 20:46 | ED ---
SOB HPI - General Chief Complaint: Shortness of Breath Stated Complaint: SOB Time Seen by Provider: 08/30/18 20:45 Source: patient, RN notes reviewed, old records reviewed Mode of arrival: EMS Limitations: no limitations - History of Present Illness Initial Comments: This is a 68-year-old female the ER for evaluation patient presents today for evaluation of shortness of breath severe shortness of cough and congestion with no history of pneumonia no history of lung disease and CAD and CA. Patient admits to shortness of breath or chest pain today. MD Complaint: shortness of breath, cough, chest pain -: days(s) Radiation: back Severity: moderate Severity scale (1-10): 4 Quality: aching Consistency: constant Improves With: oxygen, rest Worsens With: exertion, movement Known History Of: COPD, congestive heart failure, recurrent pneumonia Context: recent URI, occurred during exertion Associated Symptoms: chest pain, fever, cough, sputum production Treatments Prior to Arrival: oxygen, bronchodilator - Related Data Home Medications Medication Instructions Recorded Confirmed DULoxetine HCL [Cymbalta] 60 mg PO DAILY@0800 03/25/17 07/25/18 Metoprolol Succinate [Toprol XL] 25 mg PO DAILY 03/25/17 07/25/18 Hydrocodone/Acetaminophen [[place] 1 tab PO Q6H PRN 07/08/17 07/25/18 10-325] Atorvastatin [Lipitor] 10 mg PO HS 09/20/17 07/25/18 DULoxetine HCL [Cymbalta] 30 mg PO DAILY@1400 03/06/18 07/25/18 Cholecalciferol [Vitamin D3] 1,000 unit PO DAILY 05/14/18 07/25/18 Loperamide [Imodium] 2 mg PO DAILY PRN 05/14/18 07/25/18 Ipratropium-Albuterol Nebulize 3 ml INHALATION RT-QID 06/22/18 07/25/18 [Duoneb 0.5 mg-3 mg/3 ml Soln] ALPRAZolam [Xanax] 0.5 mg PO BID PRN 07/25/18 07/25/18 Arformoterol Tartrate [Brovana] 15 mcg INHALATION RT-BID 07/25/18 07/25/18 Methimazole [Tapazole] 5 mg PO DAILY 07/25/18 07/25/18 Temazepam [Restoril] 15 mg PO HS 07/25/18 07/25/18 amLODIPine BESYLATE [Norvasc] 10 mg PO DAILY 07/25/18 07/25/18 Previous Rx's Medication Instructions Recorded Budesonide-Formot 160-4.5 Mcg 2 puff INHALATION BID #1 inhaler 07/29/18 [Symbicort 160-4.5 Mcg Inhaler] Doxycycline [Vibramycin] 100 mg PO BID #6 cap 07/29/18 Omeprazole [PriLOSEC] 40 mg PO AC-CRISTIKFST #14 capsule. 07/29/18 predniSONE 10 mg PO DAILY #30 tab 07/29/18 Allergies Allergy/AdvReac Type Severity Reaction Status Date / Time Influenza Virus Vaccines Allergy Dyspnea Verified 08/30/18 20:46 hydromorphone [From Dilaudid] AdvReac Hallucinati Verified 08/30/18 20:46 ons Review of Systems ROS Statement: Those systems with pertinent positive or pertinent negative responses have been documented in the HPI. ROS Other: All systems not noted in ROS Statement are negative. Past Medical History Past Medical History: Asthma, Cancer, COPD, Hyperlipidemia, Hypertension, Pneumonia, Thyroid Disorder Additional Past Medical History / Comment(s): ecent UTI-now resolved, 2015 resp arrest, on vent here FEB 2017-resp. failure-on vent. in [place] visiting [facility] rehab after, O2 dependent- 3L/NC continuously, pneumonia 2010, acute trachebronchitis, chronic lt shoulder pain, DJD, bowel obstruction , donated R kidney to son, post colonoscopy with. polypectomy bleed and was in ICU, Graves disease, hx uti-ecoli 06-08-18 ,thoracic aortic anuerysm -being monitored. lung cancer pt stated due for chemo 07-26-18 and had radiation ".pt stated they put a stent in my lung" History of Any Multi-Drug Resistant Organisms: None Reported Past Surgical History: Cholecystectomy, Hysterectomy, Orthopedic Surgery Additional Past Surgical History / Comment(s): R nephrectomy, 2011 laparotomy with lysis of adhesions from kidney surgery causing bowel obstruction. L shoulder and collar bone surgery, colonoscopy with polypectomy, cataract surg- lens implants. Past Anesthesia/Blood Transfusion Reactions: No Reported Reaction Additional Past Anesthesia/Blood Transfusion Reaction / Comment(s): Pt has never received blood. Past Psychological History: Depression Smoking Status: Former smoker Past Alcohol Use History: None Reported Past Drug Use History: None Reported - Past Family History Father Family Medical History: Cancer Additional Family Medical History / Comment(s): Pancreatic cancer and passed when he was 58 Mother Family Medical History: No Reported History Additional Family Medical History / Comment(s): None General Exam Limitations: no limitations General appearance: alert, in no apparent distress Head exam: Present: atraumatic, normocephalic, normal inspection Eye exam: Present: normal appearance, PERRL, EOMI. Absent: scleral icterus, conjunctival injection, periorbital swelling ENT exam: Present: normal exam, mucous membranes moist Neck exam: Present: normal inspection. Absent: tenderness, meningismus, lymphadenopathy Respiratory exam: Present: normal lung sounds bilaterally. Absent: respiratory distress, wheezes, rales, rhonchi, stridor Cardiovascular Exam: Present: regular rate, normal rhythm, normal heart sounds. Absent: systolic murmur, diastolic murmur, rubs, gallop, clicks GI/Abdominal exam: Present: soft, normal bowel sounds. Absent: distended, tenderness, guarding, rebound, rigid Extremities exam: Present: normal inspection, full ROM, normal capillary refill. Absent: tenderness, pedal edema, joint swelling, calf tenderness Back exam: Present: normal inspection Neurological exam: Present: alert, oriented X3, CN II-XII intact Psychiatric exam: Present: normal affect, normal mood Skin exam: Present: warm, dry, intact, normal color. Absent: rash Course Vital Signs 08/30/18 08/30/18 08/30/18 20:39 20:43 20:48 Temperature 98.6 F Pulse Rate 120 H 120 H Respiratory 20 20 20 Rate Blood Pressure 160/94 160/94 O2 Sat by Pulse 93 L 93 L Oximetry 08/30/18 08/30/18 08/30/18 21:06 21:30 21:42 Temperature Pulse Rate 110 H 121 H 121 H Respiratory 20 Rate Blood Pressure 165/100 O2 Sat by Pulse 98 Oximetry 08/30/18 08/30/18 08/30/18 21:46 22:39 22:45 Temperature Pulse Rate 123 H 128 H 128 H Respiratory Rate Blood Pressure O2 Sat by Pulse Oximetry 08/30/18 22:50 Temperature Pulse Rate 124 H Respiratory 20 Rate Blood Pressure 130/85 O2 Sat by Pulse 95 Oximetry - Reevaluation(s) Reevaluation #1: 08/30/18 22:59 Medical record is reviewed Reevaluation #2: 08/30/18 22:59 Patient does to present with shortness of breath Medical Decision Making - Medical Decision Making 68 female the ER for evaluation of cough and congestion positive pneumonia worsening pneumonia, will admit for IV antibiotics and breathing treatments - Lab Data Result diagrams: 08/30/18 20:57 08/30/18 20:57 Lab Results 08/30/18 08/30/18 08/30/18 Range/Units 20:57 20:57 20:57 WBC 12.3 H (3.8-10.6) k/uL RBC 2.87 L (3.80-5.40) m/uL Hgb 8.4 L (11.4-16.0) gm/dL Hct 26.9 L (34.0-46.0) % MCV 93.9 (80.0-100.0) fL MCH 29.4 (25.0-35.0) pg MCHC 31.4 (31.0-37.0) g/dL RDW 17.8 H (11.5-15.5) % Plt Count 222 (150-450) k/uL Neutrophils % 89 % Lymphocytes % 3 % Monocytes % 6 % Eosinophils % 0 % Basophils % 0 % Neutrophils # 11.0 H (1.3-7.7) k/uL Lymphocytes # 0.4 L (1.0-4.8) k/uL Monocytes # 0.7 (0-1.0) k/uL Eosinophils # 0.0 (0-0.7) k/uL Basophils # 0.0 (0-0.2) k/uL Hypochromasia Moderate Poikilocytosis Slight Anisocytosis Slight PT (9.0-12.0) sec INR (<1.2) APTT (22.0-30.0) sec Sodium 142 (137-145) mmol/L Potassium 4.0 (3.5-5.1) mmol/L Chloride 101 (98-107) mmol/L Carbon Dioxide 32 H (22-30) mmol/L Anion Gap 9 mmol/L BUN 39 H (7-17) mg/dL Creatinine 1.52 H (0.52-1.04) mg/dL Est GFR (CKD-EPI)AfAm 41 (>60 ml/min/1.73 sqM) Est GFR (CKD-EPI)NonAf 36 (>60 ml/min/1.73 sqM) Glucose 114 H (74-99) mg/dL Calcium 10.0 (8.4-10.2) mg/dL Magnesium 2.1 (1.6-2.3) mg/dL Total Bilirubin 0.6 (0.2-1.3) mg/dL AST 15 (14-36) U/L ALT 21 (9-52) U/L Alkaline Phosphatase 102 (38-126) U/L Troponin I (0.000-0.034) ng/mL NT-Pro-B Natriuret Pep 1450 pg/mL Total Protein 6.2 L (6.3-8.2) g/dL Albumin 3.7 (3.5-5.0) g/dL 08/30/18 08/30/18 Range/Units 20:57 20:57 WBC (3.8-10.6) k/uL RBC (3.80-5.40) m/uL Hgb (11.4-16.0) gm/dL Hct (34.0-46.0) % MCV (80.0-100.0) fL MCH (25.0-35.0) pg MCHC (31.0-37.0) g/dL RDW (11.5-15.5) % Plt Count (150-450) k/uL Neutrophils % % Lymphocytes % % Monocytes % % Eosinophils % % Basophils % % Neutrophils # (1.3-7.7) k/uL Lymphocytes # (1.0-4.8) k/uL Monocytes # (0-1.0) k/uL Eosinophils # (0-0.7) k/uL Basophils # (0-0.2) k/uL Hypochromasia Poikilocytosis Anisocytosis PT 9.5 (9.0-12.0) sec INR 0.9 (<1.2) APTT 22.2 (22.0-30.0) sec Sodium (137-145) mmol/L Potassium (3.5-5.1) mmol/L Chloride (98-107) mmol/L Carbon Dioxide (22-30) mmol/L Anion Gap mmol/L BUN (7-17) mg/dL Creatinine (0.52-1.04) mg/dL Est GFR (CKD-EPI)AfAm (>60 ml/min/1.73 sqM) Est GFR (CKD-EPI)NonAf (>60 ml/min/1.73 sqM) Glucose (74-99) mg/dL Calcium (8.4-10.2) mg/dL Magnesium (1.6-2.3) mg/dL Total Bilirubin (0.2-1.3) mg/dL AST (14-36) U/L ALT (9-52) U/L Alkaline Phosphatase (38-126) U/L Troponin I 0.037 H* (0.000-0.034) ng/mL NT-Pro-B Natriuret Pep pg/mL Total Protein (6.3-8.2) g/dL Albumin (3.5-5.0) g/dL - EKG Data -: EKG Interpreted by Me (EKG shows sinus tach cardia rate 122, FL 150, QRS 78, QTc 464) - Radiology Data Radiology results: report reviewed (Chest x-ray shows worsening pneumonia), image reviewed Disposition Clinical Impression: Acute exacerbation of chronic obstructive airways disease, Small cell lung cancer, HCAP (healthcare-associated pneumonia), Oxygen dependent, Failure of outpatient treatment Disposition: ADMITTED IP TO THIS HOSP Condition: Fair Is patient prescribed a controlled substance at d/c from ED?: No Referrals: Chris Lopez DO [Primary Care Provider] - 1-2 days
--- NOTE | 2018-08-30 21:16 | XR ---
EXAMINATION TYPE: XR chest 2V DATE OF EXAM: 08/30/2018 COMPARISON: 07/25/2018 HISTORY: Short of breath TECHNIQUE: Frontal and lateral views of the chest are obtained. FINDINGS: There is no heart failure. Thoracic aorta is atherosclerotic and tortuous. There is left c lavicle old fracture. There are chest leads. There is no pleural effusion. There is osteopenia with c ompression deformity of several mid thoracic vertebra up to 50%. There is some linear density in the right lower lobe infiltrate in the right pulmonary hilum consiste nt with some consolidation and atelectasis. IMPRESSION: There is increasing right lower lobe pneumonia and atelectasis compared to last exam. Mu ltiple thoracic compression fractures unchanged. Atheromatous aorta. There is progressive improvement in the aeration of the left lower lobe compared to multiple previous exams back to 05/19/2018.
[2018-08-30 21:22] LABS: Anisocytosis Slight; Basophils % (A) 0 %; Eosinophils % (A) 0 %; HCT 26.9 % (34.0-46.0); HGB 8.4 gm/dL (11.4-16.0); Hypochromasia Moderate; Lymphocytes # (A) 0.4 k/uL (1.0-4.8); Lymphocytes % (A) 3 %; MCH 29.4 pg (25.0-35.0); MCHC 31.4 g/dL (31.0-37.0); MCV 93.9 fL (80.0-100.0); Mean Platelet Volume 6.8; Monocytes # (A) 0.7 k/uL (0-1.0); Monocytes % (A) 6 %; Neutrophils % (A) 89 %; Platelet Count 222 k/uL (150-450); Poikilocytosis Slight; RBC 2.87 m/uL (3.80-5.40); RDW 17.8 % (11.5-15.5); WBC 12.3 k/uL (3.8-10.6)
[2018-08-30 21:32] LABS: Albumin 3.7 g/dL (3.5-5.0); Magnesium 2.1 mg/dL (1.6-2.3); Total Bilirubin 0.6 mg/dL (0.2-1.3); Total Protein 6.2 g/dL (6.3-8.2)
[2018-08-30 21:34] LABS: INR 0.9 (<1.2); Partial Thromboplastin Time 22.2 sec (22.0-30.0); Prothrombin Time 9.5 sec (9.0-12.0)
[2018-08-30] MEDS ORDERED: PNEUMONIA PROTOCOL UTILIZED 1 EACH MISC PO PRN (22:23)
[2018-08-30] MEDS ORDERED: PIPERACILLIN-TAZOBACTAM 3.375 GM in SODIUM CHLORIDE 0.9% 100 ML IVPB STA (22:23)
[2018-08-30] MEDS ORDERED: IPRATROPIUM-ALBUTEROL 3 ML NEB INHALATION STA (22:23)
[2018-08-30] MEDS ORDERED: LEVOFLOXACIN 750MG-D5W PMX 750 MG in DEXTROSE/WATER 1 150ML.BAG IVPB STA (22:23)
[2018-08-30] MEDS: SODIUM CHLORIDE 0.9% 1,000 ML IV SCH (22:39)
--- NOTE | 2018-08-30 23:39 | CT ---
EXAM: CT Head Without Intravenous Contrast CLINICAL HISTORY: Pain. TECHNIQUE: Axial computed tomography images of the head/brain without intravenous contrast. Coronal and sagittal reformations provided. CTDI is 49.27 mGy and DLP is 1115.4 mGy-cm. This CT exam was performed using one or more of the following dose reduction techniques: automated exposure control, adjustment of the mA and/or kV according to patient size, and/or use of iterative reconstruction technique. COMPARISON: MR dated 08/07/2018 and 05/20/2018. FINDINGS: Brain: No evidence of acute intracranial hemorrhage. No evidence of acute territorial infarct. No mass effect or midline shift. Mild atrophy and chronic small vessel ischemic disease. Probable Ventricles: Unremarkable for age. No ventriculomegaly. Bones/joints: Unremarkable. No acute fracture. Soft tissues: Unremarkable. Sinuses: Mucous retention cysts in the inferior aspects of the maxillary sinuses. No air-fluid levels in the visualized paranasal sinuses. Mastoid air cells: Unremarkable as visualized. No mastoid effusion. IMPRESSION: 1. No evidence of acute intracranial abnormality. 2. Mild atrophy and chronic small vessel ischemic disease.
[2018-08-31 00:41] VITALS: BMI 21.6
[2018-08-31] MEDS: PIPERACILLIN-TAZOBACTAM 3.375 GM in SODIUM CHLORIDE 0.9% 100 ML IVPB SCH ×2 (00:57→09:33)
[2018-08-31] MEDS: IPRATROPIUM-ALBUTEROL 3 ML NEB INHALATION SCH ×3 (07:45→15:08)
[2018-08-31 08:08] VITALS: RESP 18; TEMP 98.2
--- NOTE | 2018-08-31 08:32 | XR ---
EXAMINATION TYPE: XR chest 2V DATE OF EXAM: 08/31/2018 COMPARISON: 08/30/2018 HISTORY: 68 year-old female follow-up pneumonia TECHNIQUE: PA and lateral views FINDINGS: Heart mildly enlarged with similar elongation/ectasia of the thoracic aorta. Hyperinflation. Patchy o pacity throughout the right lower lung and some strandy atelectasis at the left base. No pleural effu gino. There is history of bronchial stent present. Prior plate and screw fixation along the clavicula r shaft. IMPRESSION: COPD, cardiomegaly, tortuous/ectatic thoracic aorta are redemonstrated. Patchy infiltrate or atelecta sis in the right lower lung is relatively similar.
[2018-08-31] MEDS ORDERED: ENOXAPARIN 40 MG/0.4 ML SYRINGE SQ SCH (09:00)
[2018-08-31] MEDS: SODIUM CHLORIDE 0.9% 1,000 ML IV SCH (09:33)
[2018-08-31 09:46] LABS: Appearance,Urine Turbid (Clear); Bilirubin,Urine Negative (Negative); Blood,Urine Negative (Negative); Color,Urine Yellow; Glucose,Urine (UA) Negative (Negative); Ketones,Urine Negative (Negative); Leukocyte Esterase,Urine Small (Negative); Mucus,Urine Rare /hpf; Nitrite,Urine Negative (Negative); PH, Urine 5.5 (5.0-8.0); Protein,Urine 1+ (Negative); Specific Gravity,Urine 1.017 (1.001-1.035); Squamous Epithelial Cell,Urine 1 /hpf (0-4); Uric Acid Crystals,Urine Moderate /hpf; Urobilinogen,Urine <2.0 mg/dL (<2.0); WBC,Urine 10 /hpf (0-5)
--- NOTE | 2018-08-31 10:15 | P.CRDCN ---
History of Present Illness Consult date: 08/31/18 Requesting physician: Noe Ellis Reason for Consult (text): Abnormal troponin Chief complaint: Shortness of breath and cough History of present illness: Is is a 68-year-old female with history of COPD, recently diagnosed with lung cancer, small cell, history of hyperlipidemia, hypertension, hypothyroidism, asthma, dementia, thoracic aortic aneurysm, prior right nephrectomy, most of the history was obtained from the medical record as the patient is quite confused this morning. She apparently presented to the hospital with symptoms of shortness of breath with associated productive cough. Chest x-ray revealed an increasing right lower lobe pneumonia and atelectasis as compared with prior exam. Multiple thoracic compression fractures unchanged from previous, atheromatous aorta. Progressive improvement in aeration of the left lower lobe compared to prior exam. EKG shows a sinus tachycardia with no acute changes. Blood pressure this morning 173/104 heart rate in the 1 teens, temperature 98.2. White blood cell count 12.3, hemoglobin 8.4, platelet count 222. Sodium 142, potassium 4.0, BUN 39 and creatinine 1.5. Magnesium 2.1. Troponin 0.037. BNP 1450. At the time of my examination this morning, patient is sitting up at the bedside, denies any overt shortness of breath at present, continues to have productive cough. Denies any chest discomfort, no dizziness or lightheadedness. As a sitter at the bedside. Past Medical History Past Medical History: Asthma, Cancer, COPD, Hyperlipidemia, Hypertension, Pneumonia, Thyroid Disorder Additional Past Medical History / Comment(s): ecent UTI-now resolved, 2015 resp arrest, on vent here FEB 2017-resp. failure-on vent. in [place] visiting [facility] rehab after, O2 dependent- 3L/NC continuously, pneumonia 2010, acute trachebronchitis, chronic lt shoulder pain, DJD, bowel obstruction , donated R kidney to son, post colonoscopy with. polypectomy bleed and was in ICU, Graves disease, hx uti-ecoli 06-08-18 ,thoracic aortic anuerysm -being monitored. lung cancer pt stated due for chemo 07-26-18 and had radiation 07-17-18".pt stated they put a stent in my lung" History of Any Multi-Drug Resistant Organisms: None Reported Past Surgical History: Cholecystectomy, Hysterectomy, Orthopedic Surgery Additional Past Surgical History / Comment(s): R nephrectomy, 2011 laparotomy with lysis of adhesions from kidney surgery causing bowel obstruction. L shoulder and collar bone surgery, colonoscopy with polypectomy, cataract surg- lens implants. Past Anesthesia/Blood Transfusion Reactions: No Reported Reaction Additional Past Anesthesia/Blood Transfusion Reaction / Comment(s): Pt has never received blood. Past Psychological History: Depression Additional Psychological History / Comment(s): Pt has an adult son navarro residing with her. Her spouse in October of 2017. no home care services recieved. She has home O2 5 liters n/c and a nebulizer that she uses and also has bsc,shower chair and walker if needed. pt stated her son drives her to [employer]. Smoking Status: Former smoker Past Alcohol Use History: None Reported Additional Past Alcohol Use History / Comment(s): Pt started smoking in 1975 and quit smoking in 2012. smoked 1/2 ppd Past Drug Use History: None Reported - Past Family History Father Family Medical History: Cancer Additional Family Medical History / Comment(s): Pancreatic cancer and passed when he was 58 Mother Family Medical History: No Reported History Additional Family Medical History / Comment(s): None Medications and Allergies Home Medications Medication Instructions Recorded Confirmed Type DULoxetine HCL [Cymbalta] 60 mg PO DAILY@0800 03/25/17 07/25/18 History Metoprolol Succinate [Toprol XL] 25 mg PO DAILY 03/25/17 07/25/18 History Hydrocodone/Acetaminophen [[place] 1 tab PO Q6H PRN 07/08/17 07/25/18 History 10-325] Atorvastatin [Lipitor] 10 mg PO HS 09/20/17 07/25/18 History DULoxetine HCL [Cymbalta] 30 mg PO DAILY@1400 03/06/18 07/25/18 History Cholecalciferol [Vitamin D3] 1,000 unit PO DAILY 05/14/18 07/25/18 History Loperamide [Imodium] 2 mg PO DAILY PRN 05/14/18 07/25/18 History Ipratropium-Albuterol Nebulize 3 ml INHALATION RT-QID 06/22/18 07/25/18 History [Duoneb 0.5 mg-3 mg/3 ml Soln] ALPRAZolam [Xanax] 0.5 mg PO BID PRN 07/25/18 07/25/18 History Arformoterol Tartrate [Brovana] 15 mcg INHALATION RT-BID 07/25/18 07/25/18 History Methimazole [Tapazole] 5 mg PO DAILY 07/25/18 07/25/18 History Temazepam [Restoril] 15 mg PO HS 07/25/18 07/25/18 History amLODIPine BESYLATE [Norvasc] 10 mg PO DAILY 07/25/18 07/25/18 History Budesonide-Formot 160-4.5 Mcg 2 puff INHALATION BID #1 inhaler 07/29/18 Rx [Symbicort 160-4.5 Mcg Inhaler] Doxycycline [Vibramycin] 100 mg PO BID #6 cap 07/29/18 Rx Omeprazole [PriLOSEC] 40 mg PO AC-BRKFST #14 capsule. 07/29/18 Rx predniSONE 10 mg PO DAILY #30 tab 07/29/18 Rx Allergies Allergy/AdvReac Type Severity Reaction Status Date / Time Influenza Virus Vaccines Allergy Dyspnea Verified 08/30/18 20:46 hydromorphone [From Dilaudid] AdvReac Hallucinati Verified 08/30/18 20:46 ons Physical Exam Vitals: Vital Signs Temp Pulse Pulse Resp BP BP Pulse Ox 08/31/18 08:00 98.2 F 116 H 18 173/104 96 08/31/18 04:00 98.1 F 108 H 20 128/92 96 08/31/18 00:31 98.4 F 116 H 20 162/81 95 08/31/18 00:00 98.4 F 116 H 20 162/81 95 08/30/18 23:55 98.2 F 118 H 20 152/84 95 08/30/18 22:50 124 H 20 130/85 95 08/30/18 22:45 128 H 08/30/18 22:39 128 H 08/30/18 21:46 123 H 08/30/18 21:42 121 H 20 165/100 98 08/30/18 21:30 121 H 08/30/18 21:06 110 H 08/30/18 20:48 20 08/30/18 20:43 98.6 F 120 H 20 160/94 93 L 08/30/18 20:39 120 H 20 160/94 93 L Intake and Output 08/30/18 08/31/18 08/31/18 22:59 06:59 14:59 Other: Voiding Method Toilet # Voids 1 Weight 60.781 kg 59.8 kg GENERAL EXAM: Alert, doesn't, 68-year-old white female, currently on 4 L per nasal cannula, with a pulse ox of 96% comfortable in no apparent distress. HEAD: Normocephalic/atraumatic. EYES: Normal reaction of pupils, equal size. Conjunctiva pink, sclera white. NOSE: Clear with pink turbinates. THROAT: No erythema or exudates. NECK: No masses, no JVD, no thyroid enlargement, no adenopathy. CHEST: No chest wall deformity. Symmetrical expansion. LUNGS: Equal air entry with a few scattered end expiratory wheezes CVS: Regular rate and rhythm, normal S1 and S2, no gallops, no murmurs, no rubs ABDOMEN: Soft, nontender. No hepatosplenomegaly, normal bowel sounds, no guarding or rigidity. EXTREMITIES: No clubbing, no edema, no cyanosis, 2+ pulses and upper and lower extremities. MUSCULOSKELETAL: Muscle strength and tone normal. SPINE: No scoliosis or deformity SKIN: No rashes CENTRAL NERVOUS SYSTEM: Alert and oriented -3. No focal deficits, tone is normal in all 4 extremities. PSYCHIATRIC: Alert and oriented -1. Appropriate affect. Results 08/30/18 20:57 08/30/18 20:57 Cardiac Enzymes 08/30/18 08/30/18 Range/Units 20:57 20:57 AST 15 (14-36) U/L Troponin I 0.037 H* (0.000-0.034) ng/mL Coagulation 08/30/18 Range/Units 20:57 PT 9.5 (9.0-12.0) sec APTT 22.2 (22.0-30.0) sec CBC 08/30/18 Range/Units 20:57 WBC 12.3 H (3.8-10.6) k/uL RBC 2.87 L (3.80-5.40) m/uL Hgb 8.4 L (11.4-16.0) gm/dL Hct 26.9 L (34.0-46.0) % Plt Count 222 (150-450) k/uL Comprehensive Metabolic Panel 08/30/18 Range/Units 20:57 Sodium 142 (137-145) mmol/L Potassium 4.0 (3.5-5.1) mmol/L Chloride 101 (98-107) mmol/L Carbon Dioxide 32 H (22-30) mmol/L BUN 39 H (7-17) mg/dL Creatinine 1.52 H (0.52-1.04) mg/dL Glucose 114 H (74-99) mg/dL Calcium 10.0 (8.4-10.2) mg/dL AST 15 (14-36) U/L ALT 21 (9-52) U/L Alkaline Phosphatase 102 (38-126) U/L Total Protein 6.2 L (6.3-8.2) g/dL Albumin 3.7 (3.5-5.0) g/dL Current Medications Generic Name Dose Route Start Last Admin Trade Name Freq PRN Reason Stop Dose Admin Albuterol/Ipratropium 3 ml 08/31/18 08:00 08/31/18 07:45 Duoneb 0.5 Mg-3 Mg/3 Ml Soln INHALATION Not Given RT-QID ALEX Enoxaparin Sodium 40 mg 08/31/18 09:00 08/31/18 09:33 Lovenox SQ 40 mg DAILY ALEX Administration Levofloxacin 750 mg/ IV 150 mls @ 100 mls/hr 08/31/18 23:00 Solution IVPB 09/12/18 23:01 Q24H ALEX Piperacillin Sod/Tazobactam 100 mls @ 25 mls/hr 08/31/18 01:00 08/31/18 09:33 Sod 3.375 gm/ Sodium Chloride IVPB 25 mls/hr Q8H ALEX Administration Sodium Chloride 1,000 mls @ 100 mls/hr 08/30/18 22:30 08/31/18 09:33 Saline 0.9% IV 100 mls/hr .Q10H ALEX Administration Miscellaneous Information 1 each 08/30/18 22:23 Pneumonia Protocol Utilized PO ONCE PRN Per Protocol Intake and Output 08/30/18 08/31/18 08/31/18 22:59 06:59 14:59 Other: Voiding Method Toilet # Voids 1 Weight 60.781 kg 59.8 kg 08/30/18 20:57 08/30/18 20:57 EKG Interpretations (text) EKG shows a sinus tachycardia with no acute changes. Assessment and Plan Plan: Assessment and plan #1 symptoms of shortness of breath with productive cough of yellow sputum. X- ray shows worsening infiltrate, patient is on IV antibiotics and steroids. Recent hospitalization with acute purulent tracheobronchitis #2 recent diagnosis of small cell lung CA #3 history of nicotine dependence #4 history of abdominal aortic aneurysm #5 history of throat cancer #6 prior nephrectomy #7 hyperthyroidism #8 abnormal troponin likely secondary to hypoxia and abnormal renal function. Plan We will obtain 2 subsequent troponins. We will also obtain an echocardiogram with Doppler study. Pro calcitonin level will also be obtained to confirm the pneumonia. Further recommendations to follow. DNP note has been reviewed, I agree with a documented findings and plan of care. Patient was seen and examined.
[2018-08-31] MEDS ORDERED: LOPERAMIDE 2 MG CAP PO PRN (10:48)
[2018-08-31] MEDS ORDERED: ARFORMOTEROL TARTRATE 15 MCG INHALATION SCH (10:48)
[2018-08-31] MEDS ORDERED: HYDROcodone/APAP 10-325MG 1 EACH TAB PO PRN (10:48)
[2018-08-31] MEDS ORDERED: ALPRAZolam 0.5 MG TAB PO PRN (10:48)
[2018-08-31] MEDS ORDERED: DOXYCYCLINE 100 MG CAP PO SCH (11:00)
[2018-08-31] MEDS ORDERED: PANTOPRAZOLE 40 MG TABLET PO SCH (11:00)
[2018-08-31] MEDS ORDERED: METOPROLOL SUCCINATE (ER) 25 MG TAB.ER.24H PO SCH (11:00)
[2018-08-31] MEDS ORDERED: amLODIPine 10 MG TAB PO SCH (11:00)
[2018-08-31] MEDS ORDERED: METHIMAZOLE 5 MG TAB PO SCH (11:00)
[2018-08-31] MEDS ORDERED: IPRATROPIUM-ALBUTEROL 3 ML NEB INHALATION SCH ×2 (12:00→16:00)
[2018-08-31] MEDS ORDERED: IPRATROPIUM-ALBUTEROL 3 ML NEB INHALATION PRN (13:23)
[2018-08-31] MEDS ORDERED: DULoxetine HCL 30 MG CAPSULE.DR PO SCH (14:00)
[2018-08-31] MEDS ORDERED: methylPREDNISolone SOD SUCCI 40 MG/ML 1 ML VIAL IV SCH (16:00)
--- NOTE | 2018-08-31 16:36 | DS ---
DISCHARGE SUMMARY HISTORY PHYSICAL AND DISCHARGE SUMMARY: DATE OF ADMISSION: 08/30/2018. DATE OF DISCHARGE: 08/31/2018. FINAL DIAGNOSES: 1. Right lower lobe pneumonia suspect gram-negative organism. 2. Chronic obstructive pulmonary disease exacerbation an ex-smoker. 3. Lung cancer, small cell type, status post radiation treatment. 4. Chronic hypoxic respiratory failure on 2 L oxygen at home. 5. 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 6. Chronic compression fracture of thoracic vertebra. 7. Anxiety disorder not otherwise specified. 8. Nontoxic multinodular goiter from hyperthyroidism. 9. Depression, not otherwise specified. 10.Thoracic aortic aneurysm 4.8 cm. 11.Chronic insomnia. 12.Chronic hard of hearing. 13.Chronic diverticulosis colonic. 14.Chronic bilateral tinnitus. 15.Hyperlipidemia. 16.Essential hypertension. HOSPITAL COURSE: This is a patient with multiple medical problems, who is also being treated for small cell lung cancer. He finished radiation treatment, just a short time ago. Also had a collapse of the left lung for which she did get a stent placement. The patient started out yesterday with episodes of coughing bringing up clear sputum. There was no fever, chills, short of breath, wheezing, admitted for the same. Patient was started on IV antibiotics, bronchodilators, steroids which she is feeling much better. The patient keeps insisting on going home. The patient had a small blip of troponin for which cardiology was consulted. The patient does not want any more troponins to be drawn and does not want any 2D echo to be done. She states she feels well and wants to go home. REVIEW OF SYSTEMS: CONSTITUTIONAL: Tired. HEENT: None. RESPIRATORY as above. CARDIOVASCULAR: None. GASTROINTESTINAL: None. GENITOURINARY: None. MUSCULOSKELETAL: Some pain in the joints. DERMATOLOGICAL, HEMATOLOGIC, LYMPHATICS: None. PSYCHIATRY: A bit anxious. NEUROLOGICAL: None. PAST MEDICAL HISTORY: COPD, small-cell lung cancer, home oxygen 2 L, right nephrectomy, compression for thoracic vertebra, anxiety disorder, nontoxic multinodular goiter, depression, thoracic aneurysm 4.8 cm, chronic insomnia, hard of hearing. Colonic diverticulosis, bilateral tinnitus. Hyperlipidemia, hypertension. PAST SURGICAL HISTORY: Cholecystectomy, hysterectomy, right nephrectomy, lysis of adhesions from kidney surgery causing bowel obstruction, shoulder and collarbone surgery, cataract surgery. PSYCH HISTORY: Depression. SOCIAL HISTORY: The patient's adult son Dane is living with her. The patient is a . On home oxygen. The patient smoked for 38 years, stopped in 2012, smoked about half a pack a day. No alcohol. FAMILY HISTORY: Of pancreatic cancer. HOME MEDICATIONS: 1. Zofran 4 mg daily p.r.n. 2. Prednisone 10 mg a day. 3. Restoril 50 mg at bedtime. 4. Prilosec 40 mg before breakfast. 5. Toprol-XL 25 mg a day. 6. Tapazole 5 mg p.o. daily. 7. Imodium 2 mg p.o. daily p.r.n. 8. DuoNeb q.i.d. 9. [place] 10 1 tab q.6. 10.Cymbalta 90 mg a day. 11.Vitamin D3 1000 units a day. 12.Calcium, vitamin D3 one tablet p.o. daily. 13.Symbicort 160/4.5, 2 puffs b.i.d. 14.Brovana 15 mcg b.i.d. 15.ProAir 2 puffs q.4h. 16.Xanax 0.5 p.o. b.i.d. p.r.n. ALLERGIES: TO INFLUENZA VACCINE AND DILAUDID. PHYSICAL EXAMINATION: VITAL SIGNS: Vital signs on presentation: Temperature 98.6, pulse 120, respiration 20, blood pressure 160/94. Pulse ox 93 percent on 4 L. GENERAL APPEARANCE: Sitting up, not in distress. EYES: Pupils equal. Conjunctivae normal. HEENT: External appearance of nose and ears normal. Oral cavity normal. NECK: JVD not raised. Mass not palpable. RESPIRATORY: Effort increased. Some mild wheezing. Occasional right-sided crackles. CARDIOVASCULAR: 1st and 2nd sounds normal. No edema. ABDOMEN: Soft, nontender. Liver and spleen not palpable. LYMPHATICS: No lymph nodes palpable in the neck and axilla. PSYCHIATRY: Alert and oriented x3. Mood and affect anxious-appearing. NEUROLOGICAL: Pupils equal. Cranial nerves grossly intact. Power and sensation grossly intact. INVESTIGATIONS: White count 12.3, hemoglobin 8.4, potassium 4.0, BUN 39, creatinine 1.52. Patient's creatinine is 1.03 on 07/28/2018. Troponin 0.057. Chest x-ray film personally reviewed by me shows some right-sided infiltrate. Left side is better compared to the previous film. EKG tracing personally reviewed by me shows sinus tachycardia. ASSESSMENT: 1. Right-sided pneumonia, suspect gram-negative organism. 2. Acute chronic obstructive pulmonary disease exacerbation in an ex-smoker. 3. Small-cell lung cancer, being treated status post radiation. Further course of action to be determined. 4. Chronic hypoxic respiratory failure on 2 L oxygen at home. 5. 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 6. Chronic compression fracture of thoracic vertebra. 7. Anxiety disorder not otherwise specified. 8. Nontoxic multinodular goiter from hyperthyroidism. 9. Depression, not otherwise specified. 10.Thoracic aortic aneurysm 4.8 cm, being followed as an outpatient. 11.Chronic insomnia. 12.Chronic hard of hearing. 13.Chronic diverticulosis. 14.Chronic bilateral tinnitus. 15.Hyperlipidemia. 16.Essential hypertension. PLAN: Patient is started on IV antibiotics, bronchodilators, steroids. Cardiology was consulted who ordered troponin and 2D echo. The patient does not want any further testing. Does not want 2D echo. I spoke with Dr. Caal's team [facility]. They said patient could be discharged on antibiotics and patient for sure does not want any more cardiac testing, wanted to keep her for at least for one more day but she does not want the same. The patient's discharge medications will be same as above except will give steroid taper and Augmentin. FOLLOW UP: The patient to follow up with livestock laborer, Dr. Sánchez, oncologist and financial cost analyst if she wants to. Follow up with Dr. Lopez. This is both a history physical and discharge summary. MMODL / IJN: [id number] /
--- NOTE | 2018-08-31 17:13 | P.CNPUL ---
History of Present Illness Consult date: 08/31/18 Reason for consult: dyspnea, cough, hypoxemia, abnormal CXR/CT Chief complaint: Cough, chest congestion, hypoxemic respiratory failure History of present illness: This is 68-year-old white female patient well-known to our service for her history of advanced COPD, and small cell lung cancer, diagnosed in April 2018. She was diagnosed through transbronchial needle biopsy, MRI of the brain, bone scan, CT of abdomen and pelvis did not show metastatic disease. Patient is status post chemo and radiation. Patient had a left main bronchus endobronchial stent inserted for concerns of endobronchial tumor in the distal left main stem bronchus causing an airway obstruction, and postobstructive atelectasis and pneumonia. Patient presented to the hospital on 08/30/2018 per EMS for evaluation of increased shortness of breath, between distress, patient apparently was quite cyanotic, confused, and her son called the ambulance. She was also having increased cough and chest congestion, and production of large volume of yellow colored sputum. She denied any fever or chills, denied any headaches, no nausea, no vomiting, no diarrhea, denied any chest pain. Chest x- ray on admission showed increasing right lower lobe infiltrate or possible atelectasis compared to last exam. Multiple thoracic compression fractures were unchanged. Has been progressive improvement in aeration of the left lower lobe . To previous chest x-rays. Brain CT did not show any acute intracranial process, follow-up chest x-ray today showed patchy infiltrate or atelectasis in the right lower lung. Clinically patient has significantly improved since admission, she was started on empiric and pneumatics in the form of liquid and Zosyn nebulized bronchodilators, no cough or significant chest congestion on today's exam, she states production had significantly improved. She is awake and alert, oriented 3, as have a sitter at the bedside for initial confusion on admission. But that seems to have improved. She is on IV steroids. Initial lab work showed a white blood cell count of 12.3, hemoglobin of 8.4, correlation profile was within normal limits, lites were unremarkable, CO2 is 32, compatible with her history of chronic hypercapnic respiratory failure, BUN is 39 creatinine is 1.52. Troponin was 0.037, patient was evaluated by cardiology, PLATFORM BEATER was 1450. Clinically the patient did not look fluid overloaded, EKG on adm ission shows sinus tachycardia without acute ischemic changes. Review of Systems All systems: negative Constitutional: Denies chills, Denies fever Eyes: denies blurred vision, denies pain Ears, nose, mouth and throat: Denies headache, Denies sore throat Cardiovascular: Denies chest pain, Denies shortness of breath Respiratory: Reports cough with sputum, Reports dyspnea, Reports home oxygen, Reports respiratory infections, Denies cough Gastrointestinal: Denies abdominal pain, Denies diarrhea, Denies nausea, Denies vomiting Genitourinary: Denies dysuria, Denies hematuria Musculoskeletal: Denies myalgias Integumentary: Denies pruritus, Denies rash Neurological: Denies numbness, Denies weakness Psychiatric: Denies anxiety, Denies depression Endocrine: Denies fatigue, Denies weight change Past Medical History Past Medical History: Asthma, Cancer, COPD, Hyperlipidemia, Hypertension, Pneumonia, Thyroid Disorder Additional Past Medical History / Comment(s): ecent UTI-now resolved, 2016 resp arrest, on vent here FEB 2017-resp. failure-on vent. in [place] visiting [facility] rehab after, O2 dependent- 3L/NC continuously, pneumonia 2010, acute trachebronchitis, chronic lt shoulder pain, DJD, bowel obstruction , donated R kidney to son, post colonoscopy with. polypectomy bleed and was in ICU, Graves disease, hx uti-ecoli 06-08-18 ,thoracic aortic anuerysm -being monitored. lung cancer pt stated due for chemo 07-26-18 and had radiation 07-17-18".pt stated they put a stent in my lung" History of Any Multi-Drug Resistant Organisms: None Reported Past Surgical History: Cholecystectomy, Hysterectomy, Orthopedic Surgery Additional Past Surgical History / Comment(s): R nephrectomy, 2012 laparotomy w ith lysis of adhesions from kidney surgery causing bowel obstruction. L shoulder and collar bone surgery, colonoscopy with polypectomy, cataract surg- lens implants. Past Anesthesia/Blood Transfusion Reactions: No Reported Reaction Additional Past Anesthesia/Blood Transfusion Reaction / Comment(s): Pt has never received blood. Past Psychological History: Depression Additional Psychological History / Comment(s): Pt has an adult son navarro residing with her. Her spouse in October of 2017. no home care services recieved. She has home O2 5 liters n/c and a nebulizer that she uses and also h as bsc,shower chair and walker if needed. pt stated her son drives her to [employer]. Smoking Status: Former smoker Past Alcohol Use History: None Reported Additional Past Alcohol Use History / Comment(s): Pt started smoking in 1975 and quit smoking in 2012. smoked 1/2 ppd Past Drug Use History: None Reported - Past Family History Father Family Medical History: Cancer Additional Family Medical History / Comment(s): Pancreatic cancer and passed when he was 58 Mother Family Medical History: No Reported History Additional Family Medical History / Comment(s): None Medications and Allergies Home Medications Medication Instructions Recorded Confirmed Type DULoxetine HCL [Cymbalta] 60 mg PO DAILY 03/25/17 08/31/18 History Metoprolol Succinate [Toprol XL] 25 mg PO DAILY 03/25/17 08/31/18 History DULoxetine HCL [Cymbalta] 30 mg PO DAILY 03/06/18 08/31/18 History Cholecalciferol [Vitamin D3] 1,000 unit PO DAILY 05/14/18 08/31/18 History Loperamide [Imodium] 2 mg PO DAILY PRN 05/14/18 08/31/18 History Ipratropium-Albuterol Nebulize 3 ml INHALATION RT-QID 06/22/18 08/31/18 History [Duoneb 0.5 mg-3 mg/3 ml Soln] ALPRAZolam [Xanax] 0.5 mg PO BID PRN 07/25/18 08/31/18 History Methimazole [Tapazole] 5 mg PO DAILY 07/25/18 08/31/18 History Temazepam [Restoril] 15 mg PO HS 07/25/18 08/31/18 History Budesonide-Formot 160-4.5 Mcg 2 puff INHALATION BID #1 inhaler 07/29/18 08/31/18 Rx [Symbicort 160-4.5 Mcg Inhaler] Omeprazole [PriLOSEC] 40 mg PO AC-BRKFST #14 capsule. 07/29/18 08/31/18 Rx predniSONE 10 mg PO DAILY #30 tab 07/29/18 08/31/18 Rx Albuterol Sulfate [Proair Hfa] 2 puff INHALATION RT-Q4H 08/31/18 08/31/18 History Amoxicillin/Potassium Clav 1 tab PO Q12HR #10 tab 08/31/18 Rx [Augmentin 875-125 Tablet] Arformoterol Tartrate [Brovana] 15 mcg INHALATION RT-BID 08/31/18 08/31/18 History Atorvastatin [Lipitor] 10 mg PO HS #30 tab 08/31/18 Rx Calcium Carbonate/Vitamin D3 1 tab PO DAILY 08/31/18 08/31/18 History [Calcium 500-Vit D3 600 Tablet] HYDROcodone/APAP 10-325MG [[place] 1 tab PO Q6HR 08/31/18 08/31/18 History 10-325] Ondansetron [Zofran] 4 mg PO DAILY PRN 08/31/18 08/31/18 History amLODIPine [Norvasc] 10 mg PO DAILY #30 tab 08/31/18 Rx predniSONE 10 mg PO DAILY #30 tab 08/31/18 Rx Allergies Allergy/AdvReac Type Severity Reaction Status Date / Time Influenza Virus Vaccines Allergy Dyspnea Verified 08/30/18 20:46 hydromorphone [From Dilaudid] AdvReac Hallucinati Verified 08/30/18 20:46 ons Physical Exam Vitals: Vital Signs Temp Pulse Pulse Resp BP BP Pulse Ox 08/31/18 16:37 98.2 F 114 H 18 157/94 99 08/31/18 16:00 98.2 F 114 H 18 157/94 99 08/31/18 15:27 124 H 08/31/18 15:08 120 H 08/31/18 12:00 112 H 18 08/31/18 11:41 116 H 08/31/18 11:26 112 H 08/31/18 11:14 112 H 18 187/107 96 08/31/18 08:00 98.2 F 116 H 18 173/104 96 08/31/18 04:00 98.1 F 108 H 20 128/92 96 08/31/18 00:31 98.4 F 116 H 20 162/81 95 08/31/18 00:00 98.4 F 116 H 20 162/81 95 08/30/18 23:55 98.2 F 118 H 20 152/84 95 08/30/18 22:50 124 H 20 130/85 95 08/30/18 22:45 128 H 08/30/18 22:39 128 H 08/30/18 21:46 123 H 08/30/18 21:42 121 H 20 165/100 98 08/30/18 21:30 121 H 08/30/18 21:06 110 H 08/30/18 20:48 20 08/30/18 20:43 98.6 F 120 H 20 160/94 93 L 08/30/18 20:39 120 H 20 160/94 93 L Intake and Output 08/31/18 08/31/18 08/31/18 06:59 14:59 22:59 Intake Total 360 Balance 360 Intake: Oral 360 Other: Voiding Method Toilet # Voids 1 1 Weight 59.8 kg GENERAL EXAM: Alert, pleasant, 68-year-old white female comfortable in no apparent distress. HEAD: Normocephalic/atraumatic. EYES: Normal reaction of pupils, equal size. Conjunctiva pink, sclera white. NOSE: Clear with pink turbinates. THROAT: No erythema or exudates. NECK: No masses, no JVD, no thyroid enlargement, no adenopathy. CHEST: No chest wall deformity. Symmetrical expansion. LUNGS: Equal air entry with diminished breath sounds CVS: Regular rate and rhythm, normal S1 and S2, no gallops, no murmurs, no rubs ABDOMEN: Soft, nontender. No hepatosplenomegaly, normal bowel sounds, no guarding or rigidity. EXTREMITIES: No clubbing, no edema, no cyanosis, 2+ pulses and upper and lower extremities. MUSCULOSKELETAL: Muscle strength and tone normal. SPINE: No scoliosis or deformity SKIN: No rashes CENTRAL NERVOUS SYSTEM: Alert and oriented -3. No focal deficits, tone is normal in all 4 extremities. PSYCHIATRIC: Alert and oriented -3. Appropriate affect. Intact judgment and insight. Results - Laboratory Findings CBC and BMP: 08/30/18 20:57 08/30/18 20:57 PT/INR, D-dimer PT 9.5 sec (9.0-12.0) 08/30/18 20:57 INR 0.9 (<1.2) 08/30/18 20:57 Abnormal lab findings: Abnormal Labs 08/30/18 08/30/18 08/30/18 20:57 20:57 20:57 WBC 12.3 H RBC 2.87 L Hgb 8.4 L Hct 26.9 L RDW 17.8 H Neutrophils # 11.0 H Lymphocytes # 0.4 L Carbon Dioxide 32 H BUN 39 H Creatinine 1.52 H Glucose 114 H Troponin I 0.037 H* Total Protein 6.2 L Urine Appearance Urine Protein Ur Leukocyte Esterase Urine WBC Uric Acid Crystals Urine Mucus 08/31/18 08:59 WBC RBC Hgb Hct RDW Neutrophils # Lymphocytes # Carbon Dioxide BUN Creatinine Glucose Troponin I Total Protein Urine Appearance Turbid H Urine Protein 1+ H Ur Leukocyte Esterase Small H Urine WBC 10 H Uric Acid Crystals Moderate H Urine Mucus Rare H - Diagnostic Findings Chest x-ray: report reviewed, image reviewed Assessment and Plan Plan: Assessment: #1. Acute on chronic hypoxemic respiratory failure related to acute exacerbation of COPD, chest x-ray was reviewed, and showed limited right lower lobe infiltrate, likely related to atelectasis, was certainly not impressive, and patient had rapid improvement in terms of shortness of breath, chest congestion. Clinically patient is quite stable on today's exam #2. Mild troponin elevation, likely related to hypoxemia, EKG did not show any acute ischemic changes, patient was evaluated by cardiology #3. Confusion present on admission, and brain CT did not show any acute intra cranial process #4. History of small cell lung carcinoma, locally advanced, status post chemotherapy and radiation #5. History of endobronchial stenting in the left main stem bronchus, and follow-up chest x-ray shows improvement in the aeration of the left lung #6. Advanced COPD, with chronic hypoxemic and hypercapnic respiratory failure #7. Nicotine dependence, currently in remission Plan: Chest x-rays have been reviewed with Dr. Russo, and shows a limited infiltrate in the right lower lobe, entirely rule out pneumonic process, but patient had rapid improvement in her symptoms, on today's exam she is awake and alert oriented 3, vital signs are stable, no fever no chills, she did have initial chest congestion and phlegm production on presentation which seems to have resolved, patient has been treated with empiric antibiotics, from pulmonary perspective patient is stable for discharge home on oral antibiotics in the form of Levaquin, she will need outpatient follow-up with Dr. Sánchez in the office with home she follows. She is on home oxygen, and she has a nebulizer machine at home. I performed a history & physical examination of the patient and discussed their management with my nurse practitioner, Cher Allen. I reviewed the nurse practitioner's note and agree with the documented findings and plan of care. Lung sounds are positive for diminished breath sounds. The findings and the impression was discussed with the patient. I attest to the documentation by the nurse practitioner. Time with Patient: Greater than 30
[2018-08-31] MEDS ORDERED: INSULIN ASPART (NovoLOG) 100 UNIT/ML VIAL SQ SCH (17:30)
[2018-08-31 18:50] VITALS: BP 149/84; PULSE 115
[2018-08-31] MEDS ORDERED: SYMBICORT 160-4.5 MCG INHALER INHALATION SCH (20:00)
[2018-08-31] MEDS ORDERED: TEMAZEPAM 15 MG CAP PO SCH (21:00)
[2018-08-31] MEDS ORDERED: ATORVASTATIN 10 MG TAB PO SCH (21:00)
[2018-08-31] MEDS ORDERED: LEVOFLOXACIN 750MG-D5W PMX 750 MG in DEXTROSE/WATER 1 150ML.BAG IVPB SCH (23:00)
[2018-09-01] MEDS ORDERED: DULoxetine HCL 60 MG CAPSULE.DR PO SCH (08:00)
== END 2018-08-31 19:58 | disposition home or self-care (01) | DRG 177 ==
LOC: EC 20:37 → 3SCARD 22:24
PROVIDERS: ADMIT Hospitalist; ATTEND Hospitalist
DX: J15.6 Pneumonia due to other Gram-negative bacteria (principal); J96.21 Acute and chronic respiratory failure with hypoxia; C34.90 Malignant neoplasm of unspecified part of unspecified bronchus or lung; J44.0 Chronic obstructive pulmonary disease with (acute) lower respiratory infection; J44.1 Chronic obstructive pulmonary disease with (acute) exacerbation; J98.11 Atelectasis; M48.54XA Collapsed vertebra, not elsewhere classified, thoracic region, initial encounter for fracture; Z87.891 Personal history of nicotine dependence; E03.9 Hypothyroidism, unspecified; E05.20 Thyrotoxicosis with toxic multinodular goiter without thyrotoxic crisis or storm; E78.5 Hyperlipidemia, unspecified; F03.90 Unspecified dementia, unspecified severity, without behavioral disturbance, psychotic disturbance, mood disturbance, and anxiety; F32.9 Major depressive disorder, single episode, unspecified; F41.9 Anxiety disorder, unspecified; F51.04 Psychophysiologic insomnia; H91.90 Unspecified hearing loss, unspecified ear; H93.13 Tinnitus, bilateral; I11.0 Hypertensive heart disease with heart failure; I50.9 Heart failure, unspecified; I71.2 Thoracic aortic aneurysm, without rupture; K57.30 Diverticulosis of large intestine without perforation or abscess without bleeding; Z52.4 Kidney donor; Z79.51 Long term (current) use of inhaled steroids; Z79.899 Other long term (current) drug therapy; Z80.0 Family history of malignant neoplasm of digestive organs; Z85.21 Personal history of malignant neoplasm of larynx; Z87.01 Personal history of pneumonia (recurrent); Z90.5 Acquired absence of kidney; Z90.710 Acquired absence of both cervix and uterus; Z92.21 Personal history of antineoplastic chemotherapy; Z92.3 Personal history of irradiation; Z98.42 Cataract extraction status, left eye; Z98.41 Cataract extraction status, right eye; Z96.1 Presence of intraocular lens; Z99.81 Dependence on supplemental oxygen; M25.512 Pain in left shoulder; G89.29 Other chronic pain; Z87.440 Personal history of urinary (tract) infections; Z86.010 Personal history of colon polyps; R74.8 Abnormal levels of other serum enzymes; Z79.52 Long term (current) use of systemic steroids
CPT/HCPCS: 36415; 70450; 71046; 80053; 81001; 83605; 83735; 83880; 84484; 85025; 85610; 85730; 87040; 87070; 87086; 87205; 94640; 94644; 96365; 96375; 99285

== ENCOUNTER 2018-09-08 15:43 | Emergency (ER) | payer MEDICARE ==
--- NOTE | 2018-09-08 15:25 | CT ---
EXAMINATION TYPE: CT abdomen pelvis wo con DATE OF EXAM: 09/08/2018 COMPARISON: 05/15/2018 HISTORY: Abdominal pain with history of lung cancer CT DLP: 593 mGycm Automated exposure control for dose reduction was used. TECHNIQUE: Helical acquisition of images was performed from the lung bases through the pelvis. FINDINGS: LUNG BASES: The previously seen segmental left lower lobe atelectasis has resolved. Scarring is seen within the lingula. There is a descending thoracic aortic aneurysm measuring 4.7 cm, unchanged from 07/15/2017. There is subtle eccentric fluid or low-density thrombus surrounding the aorta. LIVER/GB: Solitary punctate hepatic granuloma is seen at the tip of focal liver on image 23. Gallblad cortes surgically absent. PANCREAS: No significant abnormality is seen. SPLEEN: Benign granulomatous changes are seen of the splenic parenchyma. ADRENALS: Low-density nodular thickening is present of the left adrenal gland compatible with benign lipid rich adenoma. Right adrenal gland is unremarkable. KIDNEYS: Right kidney is either surgically or congenitally absent. Bowel prolapses into the renal fos sa. There are hyperdense left renal lesions measuring 7 mm and 1.3 cm and a hypodense cyst measuring 1.0 cm. Nonobstructing lower pole 3 mm calculus is also evident. No left-sided hydronephrosis. The le ft renal lesions are unchanged from the prior of 2018. FREE AIR: No free air is visualized REPRODUCTIVE ORGANS: No significant abnormality is seen URINARY BLADDER: No significant abnormality is seen. ADENOPATHY: No greater than 1 cm short axis lymph node in the abdomen or pelvis. OSSEOUS STRUCTURES: Chronic compression deformity of the L1 vertebral body is redemonstrated. No new suspicious osseous lesion. BOWEL: Large amount retained colonic stool is present throughout the abdomen. Numerous colonic diver ticula are seen without pericolonic fat stranding. Appendix is partially air-filled and within normal limits. No dilated large or small bowel. OTHER: Infrarenal abdominal aortic ectasia is seen without aneurysmal dilatation. The aorta measures 2.7 x 2.6 cm on series 3 image 27. Extensive calcific atheromatous changes are seen of the abdominal aorta and its branches. IMPRESSION: 1. STABLE SIZE OF THE DESCENDING THORACIC AORTIC ANEURYSM, HOWEVER THERE APPEARS TO BE CRESCENTIC FLU ID SURROUNDING THE 4.7 CM ANEURYSM CONCERNING FOR VASCULITIS/AORTITIS. 2. ECTASIA OF THE INFRARENAL ABDOMINAL AORTA WITHOUT ANEURYSMAL DILATATION. 3. LARGE COLONIC STOOL BURDEN WITHOUT CURRENT EVIDENCE OF OBSTRUCTION. 4. RESOLUTION OF THE PREVIOUSLY SEEN SEGMENTAL LEFT LOBE ARE ATELECTASIS.
[2018-09-08] MEDS ORDERED: SODIUM CHLORIDE 0.9% 1,000 ML IV STA ×2 (16:01)
--- NOTE | 2018-09-08 16:02 | ED ---
Abdominal Pain HPI - General Chief Complaint: Abdominal Pain Time Seen by Provider: 09/08/18 15:55 Source: patient Mode of arrival: wheelchair Limitations: no limitations - History of Present Illness Initial Comments: This is a 68-year-old female the ER for evaluation. This patient presents today for evaluation regarding abdominal pain. Patient was sent to ER from computed tomography scan for abnormal CT findings. Patient was sent to computed tomography scan by Dr. aguilera for abdominal pain. Patient denies fevers cough congestion, no nausea vomiting or diarrhea. Patient is very emotional during history of present illness states that she is not was in hospital she does not have issues in the hospital. She was just in the hospital for quite some time with her passing away. Currently denying abdominal pain. Patient has known hiatal hernia which was reduced by Dr. aguilera, Dr. Varghese referred her to computed tomography scan to further evaluate her abdominal pain MD Complaint: abdominal pain (Abnormal outpatient CT) -: days(s) Location: diffuse, periumbilical Radiation: none Migration to: no migration Severity: mild Severity scale (1-10): 3 Quality: aching Consistency: now resolved Worsens With: nothing Associated Symptoms: denies other symptoms - Related Data Home Medications Medication Instructions Recorded Confirmed DULoxetine HCL [Cymbalta] 60 mg PO DAILY 03/25/17 09/08/18 Metoprolol Succinate [Toprol XL] 25 mg PO DAILY 03/25/17 09/08/18 DULoxetine HCL [Cymbalta] 30 mg PO DAILY 03/06/18 09/08/18 Cholecalciferol [Vitamin D3] 1,000 unit PO DAILY 05/14/18 09/08/18 Loperamide [Imodium] 2 mg PO DAILY PRN 05/14/18 09/08/18 Ipratropium-Albuterol Nebulize 3 ml INHALATION RT-QID 06/22/18 09/08/18 [Duoneb 0.5 mg-3 mg/3 ml Soln] ALPRAZolam [Xanax] 0.5 mg PO BID PRN 07/25/18 09/08/18 Methimazole [Tapazole] 5 mg PO DAILY 07/25/18 09/08/18 Temazepam [Restoril] 15 mg PO HS 07/25/18 09/08/18 Albuterol Sulfate [Proair Hfa] 2 puff INHALATION RT-Q4H PRN 08/31/18 09/08/18 Arformoterol Tartrate [Brovana] 15 mcg INHALATION RT-BID 08/31/18 09/08/18 Calcium Carbonate/Vitamin D3 1 tab PO DAILY 08/31/18 09/08/18 [Calcium 500-Vit D3 600 Tablet] HYDROcodone/APAP 10-325MG [Floweree 1 tab PO Q6HR PRN 08/31/18 09/08/18 10-325] Ondansetron [Zofran] 4 mg PO DAILY PRN 08/31/18 09/08/18 Budesonide-Formot 160-4.5 Mcg 2 puff INHALATION RT-BID 09/08/18 09/08/18 [Symbicort 160-4.5 Mcg Inhaler] Omeprazole [PriLOSEC] 40 mg PO DAILY 09/08/18 09/08/18 predniSONE See Taper PO DIRECTED 09/08/18 09/08/18 Previous Rx's Medication Instructions Recorded Atorvastatin [Lipitor] 10 mg PO HS #30 tab 08/31/18 amLODIPine [Norvasc] 10 mg PO DAILY #30 tab 08/31/18 Allergies Allergy/AdvReac Type Severity Reaction Status Date / Time Influenza Virus Vaccines Allergy Dyspnea Verified 09/08/18 16:44 hydromorphone [From Dilaudid] AdvReac Hallucinati Verified 09/08/18 16:44 ons Review of Systems ROS Statement: Those systems with pertinent positive or pertinent negative responses have been documented in the HPI. ROS Other: All systems not noted in ROS Statement are negative. Past Medical History Past Medical History: Asthma, Cancer, COPD, Hyperlipidemia, Hypertension, Pneumonia, Thyroid Disorder Additional Past Medical History / Comment(s): ecent UTI-now resolved, 2015 resp arrest, on vent here FEB 2017-resp. failure-on vent. in [place] visiting [facility] rehab after, O2 dependent- 3L/NC continuously, pneumonia 2010, acute trachebronchitis, chronic lt shoulder pain, DJD, bowel obstruction , donated R kidney to son, post colonoscopy with. polypectomy bleed and was in ICU, Graves disease, hx uti-ecoli 06-08-18 ,thoracic aortic anuerysm -being monitored. lung cancer pt stated due for chemo 07-26-18 and had radiation 07-17-18".pt stated they put a stent in my lung" History of Any Multi-Drug Resistant Organisms: None Reported Past Surgical History: Cholecystectomy, Hysterectomy, Orthopedic Surgery Additional Past Surgical History / Comment(s): R nephrectomy, 2012 laparotomy with lysis of adhesions from kidney surgery causing bowel obstruction. L shoulder and collar bone surgery, colonoscopy with polypectomy, cataract surg- lens implants. Past Anesthesia/Blood Transfusion Reactions: No Reported Reaction Additional Past Anesthesia/Blood Transfusion Reaction / Comment(s): Pt has never received blood. Past Psychological History: Depression Smoking Status: Former smoker Past Alcohol Use History: None Reported Past Drug Use History: None Reported - Past Family History Father Family Medical History: Cancer Additional Family Medical History / Comment(s): Pancreatic cancer and passed when he was 60 Mother Family Medical History: No Reported History Additional Family Medical History / Comment(s): None General Exam Limitations: no limitations Course Vital Signs 09/08/18 09/08/18 09/08/18 15:45 18:40 20:00 Temperature 98.1 F Pulse Rate 90 80 72 Respiratory 18 18 18 Rate Blood Pressure 159/98 149/85 146/75 O2 Sat by Pulse 97 99 98 Oximetry 09/08/18 09/08/18 09/09/18 21:00 23:00 07:00 Temperature 98.4 F Pulse Rate 80 77 67 Respiratory 18 16 20 Rate Blood Pressure 144/74 149/84 144/74 O2 Sat by Pulse 98 98 98 Oximetry - Reevaluation(s) Reevaluation #1: 09/08/18 20:[address] outpatient is reviewed Reevaluation #2: 09/08/18 20:[address] aguilera regarding patient, he is requesting to speak with vascular surgery and cardiothoracic surgery regarding possible evaluation of CT findings Reevaluation #3: 09/08/18 20:17 Spoke with vascular surgery who suggests evaluation by cardiothoracic surgery, then spoke with cardiothoracic surgery who suggested for evaluation by vascular surgery, unable to reconnect 2 vascular surgery at that point Reevaluation #4: 09/08/18 20:[address] Guajardo for Dr. Varghese, agreement is made to get a CT angiogram of the aorta to further evaluate the findings Medical Decision Making - Medical Decision Making 68 female the ER for evaluation. Patient resents today for evaluation regarding abdominal pain. Patient herself [facility] she is without fever dying within the same disease. Patient h as abdominal pain but is Exie currently complaining of no abdominal pain. Patient is CTA negative for change of aortic injury - Lab Data Result diagrams: 09/08/18 17:44 09/08/18 17:44 Lab Results 09/08/18 09/08/18 09/08/18 Range/Units 17:44 17:44 17:44 WBC 12.8 H (3.8-10.6) k/uL RBC 3.32 L (3.80-5.40) m/uL Hgb 10.3 L (11.4-16.0) gm/dL Hct 31.3 L (34.0-46.0) % MCV 94.3 (80.0-100.0) fL MCH 30.9 (25.0-35.0) pg MCHC 32.8 (31.0-37.0) g/dL RDW 17.5 H (11.5-15.5) % Plt Count 291 (150-450) k/uL Neutrophils % 97 % Lymphocytes % 1 % Monocytes % 2 % Eosinophils % 0 % Basophils % 0 % Neutrophils # 12.3 H (1.3-7.7) k/uL Lymphocytes # 0.1 L (1.0-4.8) k/uL Monocytes # 0.3 (0-1.0) k/uL Eosinophils # 0.0 (0-0.7) k/uL Basophils # 0.0 (0-0.2) k/uL Anisocytosis Slight PT 10.0 (9.0-12.0) sec INR 0.9 (<1.2) APTT 20.5 L (22.0-30.0) sec Sodium 138 (137-145) mmol/L Potassium 4.3 (3.5-5.1) mmol/L Chloride 98 (98-107) mmol/L Carbon Dioxide 29 (22-30) mmol/L Anion Gap 11 mmol/L BUN 37 H (7-17) mg/dL Creatinine 1.00 (0.52-1.04) mg/dL Est GFR (CKD-EPI)AfAm 68 (>60 ml/min/1.73 sqM) Est GFR (CKD-EPI)NonAf 59 (>60 ml/min/1.73 sqM) Glucose 122 H (74-99) mg/dL Calcium 10.2 (8.4-10.2) mg/dL Phosphorus 3.9 (2.5-4.5) mg/dL Magnesium 1.8 (1.6-2.3) mg/dL Total Bilirubin 1.0 (0.2-1.3) mg/dL AST 17 (14-36) U/L ALT 25 (9-52) U/L Alkaline Phosphatase 73 (38-126) U/L Troponin I (0.000-0.034) ng/mL C-Reactive Protein <5.0 (<10.0) mg/L Total Protein 6.9 (6.3-8.2) g/dL Albumin 4.4 (3.5-5.0) g/dL 09/08/18 Range/Units 17:44 WBC (3.8-10.6) k/uL RBC (3.80-5.40) m/uL Hgb (11.4-16.0) gm/dL Hct (34.0-46.0) % MCV (80.0-100.0) fL MCH (25.0-35.0) pg MCHC (31.0-37.0) g/dL RDW (11.5-15.5) % Plt Count (150-450) k/uL Neutrophils % % Lymphocytes % % Monocytes % % Eosinophils % % Basophils % % Neutrophils # (1.3-7.7) k/uL Lymphocytes # (1.0-4.8) k/uL Monocytes # (0-1.0) k/uL Eosinophils # (0-0.7) k/uL Basophils # (0-0.2) k/uL Anisocytosis PT (9.0-12.0) sec INR (<1.2) APTT (22.0-30.0) sec Sodium (137-145) mmol/L Potassium (3.5-5.1) mmol/L Chloride (98-107) mmol/L Carbon Dioxide (22-30) mmol/L Anion Gap mmol/L BUN (7-17) mg/dL Creatinine (0.52-1.04) mg/dL Est GFR (CKD-EPI)AfAm (>60 ml/min/1.73 sqM) Est GFR (CKD-EPI)NonAf (>60 ml/min/1.73 sqM) Glucose (74-99) mg/dL Calcium (8.4-10.2) mg/dL Phosphorus (2.5-4.5) mg/dL Magnesium (1.6-2.3) mg/dL Total Bilirubin (0.2-1.3) mg/dL AST (14-36) U/L ALT (9-52) U/L Alkaline Phosphatase (38-126) U/L Troponin I <0.012 (0.000-0.034) ng/mL C-Reactive Protein (<10.0) mg/L Total Protein (6.3-8.2) g/dL Albumin (3.5-5.0) g/dL - Radiology Data Radiology results: report reviewed (CTangio is negative for acute changes from prior aorta), image reviewed Disposition Clinical Impression: Abdominal pain Disposition: HOME SELF-CARE Condition: Good Instructions (If sedation given, give patient instructions): Abdominal Pain (ED) Is patient prescribed a controlled substance at d/c from ED?: No Referrals: Chris Lopez DO [Primary Care Provider] - 1-2 days
[2018-09-08 18:03] LABS: Anisocytosis Slight; Basophils % (A) 0 %; Eosinophils % (A) 0 %; HCT 31.3 % (34.0-46.0); HGB 10.3 gm/dL (11.4-16.0); Lymphocytes # (A) 0.1 k/uL (1.0-4.8); Lymphocytes % (A) 1 %; MCH 30.9 pg (25.0-35.0); MCHC 32.8 g/dL (31.0-37.0); MCV 94.3 fL (80.0-100.0); Mean Platelet Volume 6.1; Monocytes # (A) 0.3 k/uL (0-1.0); Monocytes % (A) 2 %; Neutrophils # (A) 12.3 k/uL (1.3-7.7); Neutrophils % (A) 97 %; Platelet Count 291 k/uL (150-450); RBC 3.32 m/uL (3.80-5.40); RDW 17.5 % (11.5-15.5); WBC 12.8 k/uL (3.8-10.6)
[2018-09-08 18:13] LABS: ALT 25 U/L (9-52); AST 17 U/L (14-36); Albumin 4.4 g/dL (3.5-5.0); Alkaline Phosphatase 73 U/L (38-126); Anion Gap 11 mmol/L; Blood Urea Nitrogen 37 mg/dL (7-17); Calcium 10.2 mg/dL (8.4-10.2); Carbon Dioxide 29 mmol/L (22-30); Chloride 98 mmol/L (98-107); Glucose 122 mg/dL (74-99); Magnesium 1.8 mg/dL (1.6-2.3); Phosphorus 3.9 mg/dL (2.5-4.5); Potassium 4.3 mmol/L (3.5-5.1); Sodium 138 mmol/L (137-145); Total Protein 6.9 g/dL (6.3-8.2)
[2018-09-08 18:21] LABS: C Reactive Protein <5.0 mg/L (<10.0)
[2018-09-08 18:22] LABS: INR 0.9 (<1.2)
[2018-09-08 18:23] LABS: Partial Thromboplastin Time 20.5 sec (22.0-30.0)
--- NOTE | 2018-09-08 21:07 | CT ---
EXAMINATION TYPE: CT angio thor/abd pel aorta DATE OF EXAM: 09/08/2018 COMPARISON: None HISTORY: PT c/o abdomen pain. Was an outpatient today, Dr. Varghese sent pt to ER based on CT ab/pel w/o s tudy today CT DLP: 1006.4 mGycm. Automated Exposure Control for Dose Reduction was Utilized. CONTRAST: CT scan of the thorax, abdomen and pelvis is performed with IV Contrast, patient injected with 80 mL of Isovue 370. FINDINGS: There are 3-D post processed images. Images were obtained from the thoracic inlet to the floor the lvis without and with IV contrast. There is 4.8 cm aneurysm of the lower thoracic aorta and upper abdominal aorta. There is thrombus on the right lateral wall that measures up to 2 cm in thickness. There is patency of the celiac artery a nd superior mesenteric artery. There is patency of the common internal and external iliac arteries. T here is bilateral patency of the femoral arteries. I see no sign of hemodynamic stenosis. There is pa tency of the left renal artery. The right renal artery and right kidney are absent. IMPRESSION: There is aneurysm of the lower thoracic aorta and upper abdominal aorta as above. 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 This appears unchanged compared to older CT scan of 05/15/2018. No evidence of hemodynamic stenosis. Bladder distends smoothly. There are numerous diverticula in the sigmoid colon. There is no evidence of diverticulitis. Liver and spleen show no focal defect. There is no evidence of pancreatic mass. Th ere is mild constipation. Left kidneys show satisfactory contrast opacification. There is no hydronep hrosis. There is no ascites. There is no free air. There is some ectasia of the ascending and descending thoracic aorta. The ascending aorta measures up to 3.5 cm. There are calcified granulomata at the right pulmonary hilum. 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 Left lobe is larger than the right. There is 30% anterior wedging o f L1 vertebra. This similar compression of T8 vertebra. There is 50% wedging of T5.
[2018-09-08 21:08] VITALS: TEMP 98.4
[2018-09-09 07:12] VITALS: BP 144/74; PULSE 67; RESP 20
== END 2018-09-08 23:00 | disposition home or self-care (01) ==
LOC: EC 15:43
DX: R10.84 Generalized abdominal pain (principal); R10.33 Periumbilical pain; J44.9 Chronic obstructive pulmonary disease, unspecified; I10 Essential (primary) hypertension; F32.9 Major depressive disorder, single episode, unspecified; Z79.51 Long term (current) use of inhaled steroids; Z79.899 Other long term (current) drug therapy; Z88.5 Allergy status to narcotic agent; Z88.7 Allergy status to serum and vaccine; Z87.891 Personal history of nicotine dependence; Z90.49 Acquired absence of other specified parts of digestive tract; Z90.710 Acquired absence of both cervix and uterus; Z90.5 Acquired absence of kidney
CPT/HCPCS: 36415; 93005; 80053; 83735; 84100; 84484; 85025; 85610; 85730; 86140; 87040; 71275; 74176; 74174; 99284; 96360; Q9967

== ENCOUNTER → 2018-09-14 | Outpatient (CLI) | payer MEDICARE ==
--- NOTE | 2018-09-14 15:27 | US ---
EXAMINATION TYPE: US thyroid st tissue head/neck DATE OF EXAM: 09/14/2018 COMPARISON: 2017 CLINICAL HISTORY: E04.2 nontoxic multinodular goiter. Pt on chemo for small cell lung ca diagnosed 05/2018 GLAND SIZE: Right Lobe: 5.9 x 2.3 x 3.4 cm Overall Parenchyma: heterogenous Left Lobe: 6.5 x 3.3 x 2.8 cm Overall Parenchyma: heterogeneous Isthmus Thickness: 0.7 cm NODULES RIGHT: # of nodules measured on right: 3 1. 1.1 X 1.1 x 1.3 cm mixed nodule at the mid pole with well-defined margins; . This nodule is rou nd and shows no intranodular vascularity. Prior size: 1.9 x 1.5 x 1.5 cm 2. 0.8 X 0.7 x 0.8 cm solid nodule at the upper pole with well-defined margins; . This nodule is ro und and shows no intranodular vascularity. Prior size: 1.0 x 0.9 x 0.6 cm 3. 2.5 X 2.1 x 2.0 cm solid nodule at the lower pole with poorly defined margins; . This nodule is taller than wide and shows intranodular vascularity. Prior size: Likely stable, not measured LEFT: # of nodules measured on left: 2 1. 1.4 X 1.5 x 1.5 cm solid nodule at the lower pole with poorly defined margins; . This nodule is taller than wide and shows intranodular vascularity. Prior size: 1.6 x 1.6 x 1.3 cm 2. 1.6 X 1.6 x 1.0 cm solid nodule at the upper pole with poorly defined margins; . This nodule is taller than wide and shows no intranodular vascularity. Prior size: 1.8 x 1.7 x 1.2 cm ISTHMUS: # of nodules measured in the isthmus: 0 Bilateral neck scanned, no evidence of lymphadenopathy. The gland is diffusely heterogeneous. IMPRESSION: Exam is essentially stable, findings compatible with multinodular goiter.
== END | disposition home or self-care (01) ==
LOC: RADUSWWP 12:14
PROVIDERS: ATTEND Family Medicine
DX: E04.2 Nontoxic multinodular goiter (principal)
CPT/HCPCS: 76536

== ENCOUNTER 2018-09-21 18:59 | Inpatient (IN) | payer MEDICARE ==
[2018-09-21] MEDS ORDERED: IPRATROPIUM-ALBUTEROL 3 ML NEB INHALATION STA ×2 (19:18→20:16)
[2018-09-21] MEDS ORDERED: SODIUM CHLORIDE 0.9% 1,000 ML IV ONE ×2 (19:18)
--- NOTE | 2018-09-21 19:19 | ED ---
SOB HPI - General Chief Complaint: Shortness of Breath Stated Complaint: MAYELIN, altered mental status Time Seen by Provider: 09/21/18 19:07 Source: patient, RN notes reviewed, old records reviewed Mode of arrival: EMS Limitations: altered mental status - History of Present Illness Initial Comments: This is a 68-year-old female patient presents today for evaluation of altered mental status. Patient was having hallucinations and CT labwork there on her p orch, she is giving out neighbors were called, neighbors called EMS and EMS found patient to have oxygen 84%. Patient still mildly altered also improving with mental status now the emergency room with normal oxygenation. Patient himself does admit to mild source of breath but denies any significant complaints otherwise. Unknown baseline. History obtained from patient's record and patient's chart MD Complaint: shortness of breath, anxiety -: days(s) Radiation: other Severity: moderate Severity scale (1-10): 6 Quality: dull Consistency: constant Improves With: nothing Worsens With: nothing Known History Of: COPD, congestive heart failure Context: recent URI Associated Symptoms: fever Treatments Prior to Arrival: none - Related Data Home Medications Medication Instructions Recorded Confirmed DULoxetine HCL [Cymbalta] 60 mg PO DAILY 03/25/17 09/21/18 Metoprolol Succinate [Toprol XL] 25 mg PO DAILY 03/25/17 09/21/18 DULoxetine HCL [Cymbalta] 30 mg PO DAILY 03/06/18 09/21/18 Cholecalciferol [Vitamin D3] 1,000 unit PO DAILY 05/14/18 09/21/18 ALPRAZolam [Xanax] 0.5 mg PO BID PRN 07/25/18 09/21/18 Methimazole [Tapazole] 5 mg PO DAILY 07/25/18 09/21/18 Albuterol Sulfate [Proair Hfa] 2 puff INHALATION RT-Q4H PRN 08/31/18 09/21/18 Calcium Carbonate/Vitamin D3 1 tab PO DAILY 08/31/18 09/21/18 [Calcium 500-Vit D3 600 Tablet] HYDROcodone/APAP 10-325MG [[place] 1 tab PO Q6HR PRN 08/31/18 09/21/18 10-325] Budesonide-Formot 160-4.5 Mcg 2 puff INHALATION RT-BID 09/08/18 09/21/18 [Symbicort 160-4.5 Mcg Inhaler] Aspirin EC [Ecotrin Low Dose] 81 mg PO DAILY 09/21/18 09/21/18 Docusate [Colace] 100 mg PO DAILY 09/21/18 09/21/18 Guaifenesin/Dextromethorphan 1 cap PO Q6H PRN 09/21/18 09/21/18 [Robitussin Vpols-Tretf-Ufkp Dm] Ibuprofen [Motrin Ib] 200 mg PO Q6H PRN 09/21/18 09/21/18 Montelukast [Singulair] 10 mg PO DAILY 09/21/18 09/21/18 Previous Rx's Medication Instructions Recorded Atorvastatin [Lipitor] 10 mg PO HS #30 tab 08/31/18 amLODIPine [Norvasc] 10 mg PO DAILY #30 tab 08/31/18 Allergies Allergy/AdvReac Type Severity Reaction Status Date / Time Influenza Virus Vaccines Allergy Dyspnea Verified 09/21/18 19:11 hydromorphone [From Dilaudid] AdvReac Hallucinati Verified 09/21/18 19:11 ons Review of Systems ROS Statement: Those systems with pertinent positive or pertinent negative responses have been documented in the HPI. ROS Other: All systems not noted in ROS Statement are negative. Past Medical History Past Medical History: Asthma, Cancer, COPD, Hyperlipidemia, Hypertension, Pneumonia, Thyroid Disorder Additional Past Medical History / Comment(s): ecent UTI-now resolved, 2015 resp arrest, on vent here FEB 2017-resp. failure-on vent. 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 polypectomy bleed and was in ICU, Graves disease, hx uti-ecoli 06-08-18 ,thoracic aortic anuerysm -being monitored. lung cancer pt stated due for chemo 07-26-18 and had radiation 07-17-18".pt stated they put a stent in my lung" History of Any Multi-Drug Resistant Organisms: None Reported Past Surgical History: Cholecystectomy, Hysterectomy, Orthopedic Surgery Additional Past Surgical History / Comment(s): R nephrectomy, 2011 laparotomy with lysis of adhesions from kidney surgery causing bowel obstruction. L shoulder and collar bone surgery, colonoscopy with polypectomy, cataract surg- lens implants. Past Anesthesia/Blood Transfusion Reactions: No Reported Reaction Additional Past Anesthesia/Blood Transfusion Reaction / Comment(s): Pt has never received blood. Past Psychological History: Depression Smoking Status: Former smoker Past Alcohol Use History: None Reported Past Drug Use History: None Reported - Past Family History Father Family Medical History: Cancer Additional Family Medical History / Comment(s): Pancreatic cancer and passed when he was 58 Mother Family Medical History: No Reported History Additional Family Medical History / Comment(s): None General Exam Limitations: altered mental status General appearance: alert, in no apparent distress, anxious Head exam: Present: atraumatic, normocephalic, normal inspection Eye exam: Present: normal appearance, PERRL, EOMI. Absent: scleral icterus, conjunctival injection, periorbital swelling ENT exam: Present: normal exam, mucous membranes moist Neck exam: Present: normal inspection. Absent: tenderness, meningismus, lymphadenopathy Respiratory exam: Present: respiratory distress, wheezes, accessory muscle use, decreased breath sounds. Absent: rales, rhonchi, stridor Cardiovascular Exam: Present: normal rhythm, tachycardia, normal heart sounds. Absent: systolic murmur, diastolic murmur, rubs, gallop, clicks GI/Abdominal exam: Present: soft, normal bowel sounds. Absent: distended, tenderness, guarding, rebound, rigid Extremities exam: Present: normal inspection, full ROM, normal capillary refill. Absent: tenderness, pedal edema, joint swelling, calf tenderness Back exam: Present: normal inspection Neurological exam: Present: alert, oriented X3, CN II-XII intact Psychiatric exam: Present: normal affect, normal mood Skin exam: Present: warm, dry, intact, normal color. Absent: rash Course Vital Signs 09/21/18 09/21/18 09/21/18 19:01 19:31 19:43 Temperature 99.9 F H Pulse Rate 105 H 104 H 104 H Respiratory 22 Rate Blood Pressure 121/71 O2 Sat by Pulse 89 L Oximetry 09/21/18 20:01 Temperature Pulse Rate 103 H Respiratory 22 Rate Blood Pressure 123/75 O2 Sat by Pulse 93 L Oximetry Medical Decision Making - Medical Decision Making 68 female the ER for evaluation positive pneumonia positive CHF UTI renal fa ilure dehydration with altered mental status. Patient be admitted for cardiopulmonary support, IV antibiotics - Lab Data Result diagrams: 09/21/18 19:18 09/21/18 19:18 Lab Results 09/21/18 09/21/18 09/21/18 Range/Units 19:18 19:18 19:18 WBC 11.0 H (3.8-10.6) k/uL RBC 2.57 L (3.80-5.40) m/uL Hgb 7.5 L D (11.4-16.0) gm/dL Hct 24.5 L (34.0-46.0) % MCV 95.3 (80.0-100.0) fL MCH 29.3 (25.0-35.0) pg MCHC 30.8 L (31.0-37.0) g/dL RDW 16.9 H (11.5-15.5) % Plt Count 82 L D (150-450) k/uL Neutrophils % 89 % Lymphocytes % 4 % Monocytes % 5 % Eosinophils % 1 % Basophils % 0 % Neutrophils # 9.8 H (1.3-7.7) k/uL Lymphocytes # 0.4 L (1.0-4.8) k/uL Monocytes # 0.5 (0-1.0) k/uL Eosinophils # 0.1 (0-0.7) k/uL Basophils # 0.0 (0-0.2) k/uL Manual Slide Review Performed Polychromasia Present Hypochromasia Slight Poikilocytosis (manual Present Anisocytosis Slight Tear Drop Cells Present PT (9.0-12.0) sec INR (<1.2) APTT (22.0-30.0) sec Sodium 137 (137-145) mmol/L Potassium 3.8 (3.5-5.1) mmol/L Chloride 100 (98-107) mmol/L Carbon Dioxide 27 (22-30) mmol/L Anion Gap 10 mmol/L BUN 24 H (7-17) mg/dL Creatinine 1.29 H (0.52-1.04) mg/dL Est GFR (CKD-EPI)AfAm 50 (>60 ml/min/1.73 sqM) Est GFR (CKD-EPI)NonAf 43 (>60 ml/min/1.73 sqM) Glucose 100 H (74-99) mg/dL Calcium 9.2 (8.4-10.2) mg/dL Total Bilirubin 0.5 (0.2-1.3) mg/dL AST 11 L (14-36) U/L ALT 21 (9-52) U/L Alkaline Phosphatase 98 (38-126) U/L Ammonia <9 (<30) umol/L Troponin I (0.000-0.034) ng/mL Total Protein 5.5 L (6.3-8.2) g/dL Albumin 3.3 L (3.5-5.0) g/dL Urine Color Urine Appearance (Clear) Urine pH (5.0-8.0) Ur Specific [place] (1.001-1.035) Urine Protein (Negative) Urine Glucose (UA) (Negative) Urine Ketones (Negative) Urine Blood (Negative) Urine Nitrite (Negative) Urine Bilirubin (Negative) Urine Urobilinogen (<2.0) mg/dL Ur Leukocyte Esterase (Negative) Urine WBC (0-5) /hpf Urine WBC Clumps (None) /hpf Ur Squamous Epith Cells (0-4) /hpf Hyaline Casts (0-2) /lpf Urine Mucus (None) /hpf Urine Opiates Screen (NotDetected) Ur Oxycodone Screen (NotDetected) Urine Methadone Screen (NotDetected) Ur Propoxyphene Screen (NotDetected) Ur Barbiturates Screen (NotDetected) U Tricyclic Antidepress (NotDetected) Ur Phencyclidine Scrn (NotDetected) Ur Amphetamines Screen (NotDetected) U Methamphetamines Scrn (NotDetected) U Benzodiazepines Scrn (NotDetected) Urine Cocaine Screen (NotDetected) U Marijuana (THC) Screen (NotDetected) 09/21/18 09/21/18 09/21/18 Range/Units 19:18 19:18 19:21 WBC (3.8-10.6) k/uL RBC (3.80-5.40) m/uL Hgb (11.4-16.0) gm/dL Hct (34.0-46.0) % MCV (80.0-100.0) fL MCH (25.0-35.0) pg MCHC (31.0-37.0) g/dL RDW (11.5-15.5) % Plt Count (150-450) k/uL Neutrophils % % Lymphocytes % % Monocytes % % Eosinophils % % Basophils % % Neutrophils # (1.3-7.7) k/uL Lymphocytes # (1.0-4.8) k/uL Monocytes # (0-1.0) k/uL Eosinophils # (0-0.7) k/uL Basophils # (0-0.2) k/uL Manual Slide Review Polychromasia Hypochromasia Poikilocytosis (manual Anisocytosis Tear Drop Cells PT 10.1 (9.0-12.0) sec INR 0.9 (<1.2) APTT 21.5 L (22.0-30.0) sec Sodium (137-145) mmol/L Potassium (3.5-5.1) mmol/L Chloride (98-107) mmol/L Carbon Dioxide (22-30) mmol/L Anion Gap mmol/L BUN (7-17) mg/dL Creatinine (0.52-1.04) mg/dL Est GFR (CKD-EPI)AfAm (>60 ml/min/1.73 sqM) Est GFR (CKD-EPI)NonAf (>60 ml/min/1.73 sqM) Glucose (74-99) mg/dL Calcium (8.4-10.2) mg/dL Total Bilirubin (0.2-1.3) mg/dL AST (14-36) U/L ALT (9-52) U/L Alkaline Phosphatase (38-126) U/L Ammonia (<30) umol/L Troponin I <0.012 (0.000-0.034) ng/mL Total Protein (6.3-8.2) g/dL Albumin (3.5-5.0) g/dL Urine Color Yellow Urine Appearance Cloudy H (Clear) Urine pH 5.5 (5.0-8.0) Ur Specific [place] 1.024 (1.001-1.035) Urine Protein 1+ H (Negative) Urine Glucose (UA) Negative (Negative) Urine Ketones Trace H (Negative) Urine Blood Trace H (Negative) Urine Nitrite Negative (Negative) Urine Bilirubin Negative (Negative) Urine Urobilinogen 3.0 (<2.0) mg/dL Ur Leukocyte Esterase Small H (Negative) Urine WBC 31 H (0-5) /hpf Urine WBC Clumps Many H (None) /hpf Ur Squamous Epith Cells 1 (0-4) /hpf Hyaline Casts 5 H (0-2) /lpf Urine Mucus Moderate H (None) /hpf Urine Opiates Screen Detected H (NotDetected) Ur Oxycodone Screen Not Detected (NotDetected) Urine Methadone Screen Not Detected (NotDetected) Ur Propoxyphene Screen Not Detected (NotDetected) Ur Barbiturates Screen Not Detected (NotDetected) U Tricyclic Antidepress Not Detected (NotDetected) Ur Phencyclidine Scrn Not Detected (NotDetected) Ur Amphetamines Screen Not Detected (NotDetected) U Methamphetamines Scrn Not Detected (NotDetected) U Benzodiazepines Scrn Detected H (NotDetected) Urine Cocaine Screen Not Detected (NotDetected) U Marijuana (THC) Screen Not Detected (NotDetected) - EKG Data -: EKG Interpreted by Me (EKG shows sinus tachycardia rate of 104, VA 160, QRS 76, QTc 447) - Radiology Data Radiology results: report reviewed (Chest x-ray positive for pneumonia and CHF), image reviewed Disposition Clinical Impression: Adult respiratory distress syndrome, Pneumonia, COPD exacerbation, Acute exacerbation of chronic obstructive airways disease, Altered mental state, UTI (urinary tract infection), ARF (acute renal failure) Disposition: ADMITTED IP TO THIS [facility] Condition: Serious Is patient prescribed a controlled substance at d/c from ED?: No Referrals: Chris Lopez DO [Primary Care Provider] - 1-2 days
[2018-09-21 19:37] LABS: Albumin 3.3 g/dL (3.5-5.0); Calcium 9.2 mg/dL (8.4-10.2); Potassium 3.8 mmol/L (3.5-5.1); Total Bilirubin 0.5 mg/dL (0.2-1.3); Total Protein 5.5 g/dL (6.3-8.2)
[2018-09-21 19:43] LABS: Appearance,Urine Cloudy (Clear); Bilirubin,Urine Negative (Negative); Blood,Urine Trace (Negative); Color,Urine Yellow; Glucose,Urine (UA) Negative (Negative); Hyaline Casts,Urine 5 /lpf (0-2); Ketones,Urine Trace (Negative); Leukocyte Esterase,Urine Small (Negative); Mucus,Urine Moderate /hpf; Nitrite,Urine Negative (Negative); PH, Urine 5.5 (5.0-8.0); Protein,Urine 1+ (Negative); Specific Gravity,Urine 1.024 (1.001-1.035); Squamous Epithelial Cell,Urine 1 /hpf (0-4); WBC,Urine 31 /hpf (0-5)
[2018-09-21 19:47] LABS: Anisocytosis Slight; Basophils % (A) 0 %; Eosinophils # (A) 0.1 k/uL (0-0.7); Eosinophils % (A) 1 %; HCT 24.5 % (34.0-46.0); Hypochromasia Slight; Lymphocytes # (A) 0.4 k/uL (1.0-4.8); Lymphocytes % (A) 4 %; MCH 29.3 pg (25.0-35.0); MCHC 30.8 g/dL (31.0-37.0); MCV 95.3 fL (80.0-100.0); Mean Platelet Volume 7.9; Monocytes # (A) 0.5 k/uL (0-1.0); Monocytes % (A) 5 %; Neutrophils # (A) 9.8 k/uL (1.3-7.7); Neutrophils % (A) 89 %; RBC 2.57 m/uL (3.80-5.40); RDW 16.9 % (11.5-15.5)
[2018-09-21 19:50] LABS: HGB 7.5 gm/dL (11.4-16.0)
[2018-09-21 19:52] LABS: Amphetamine Screen,Urine Not Detected (NotDetected); Barbiturate Screen,Urine Not Detected (NotDetected); Benzodiazepines Screen,Urine Detected (NotDetected); Cocaine Screen,Urine Not Detected (NotDetected); Methadone Screen, Urine Not Detected (NotDetected); Opiate Screen,Urine Detected (NotDetected); Oxycodone Screen, Urine Not Detected (NotDetected); Phencyclidine Screen,Urine Not Detected (NotDetected); Tricyclic Antidepressant,Urine Not Detected (NotDetected); Urn Cannabinoid Scrn Not Detected (NotDetected)
--- NOTE | 2018-09-21 19:55 | XR ---
EXAMINATION TYPE: XR chest 2V DATE OF EXAM: 09/21/2018 COMPARISON: 09/18/2018 HISTORY: Short of breath. Asthma. TECHNIQUE: Frontal and lateral views of the chest are obtained. FINDINGS: There is no focal air space opacity, pleural effusion, or pneumothorax seen. The cardiac silhouette size is within normal limits. The osseous structures are intact. There is some patchy airspace consolidation and atelectasis at the left lung base. There is general c oarsening of interstitial markings. There is a plate fixing old left clavicle fracture. There are dustin st leads. Heart is enlarged. Thoracic aorta is atheromatous. There is no gross heart failure. IMPRESSION: Pulmonary fibrosis. There is increasing left lower lobe pneumonia and atelectasis compar ed to old exam.
[2018-09-21 19:59] LABS: INR 0.9 (<1.2); Prothrombin Time 10.1 sec (9.0-12.0)
[2018-09-21 20:01] LABS: Partial Thromboplastin Time 21.5 sec (22.0-30.0)
[2018-09-21] MEDS ORDERED: ALBUTEROL NEBULIZED 2.5 MG/3 ML INHALATION PRN (20:16)
[2018-09-21] MEDS ORDERED: AZITHROMYCIN 500 MG in SODIUM CHLORIDE 0.9% 250 ML IVPB STA (20:16)
[2018-09-21] MEDS ORDERED: PNEUMONIA PROTOCOL UTILIZED 1 EACH MISC PO PRN (20:16)
[2018-09-21 20:20] LABS: Polychromasia Present
[2018-09-21 20:21] LABS: Poikilocytosis (M) Present; Tear Drop Cells Present
[2018-09-21 20:22] LABS: Platelet Count 82 k/uL (150-450)
[2018-09-21] MEDS: SODIUM CHLORIDE 0.9% 1,000 ML IV SCH (20:39)
[2018-09-21] MEDS ORDERED: ONDANSETRON 4 MG TAB PO PRN (23:24)
[2018-09-22 06:48] LABS: Calcium 8.8 mg/dL (8.4-10.2)
--- NOTE | 2018-09-22 07:40 | XR ---
EXAMINATION TYPE: XR chest 1V portable DATE OF EXAM: 09/22/2018 CLINICAL HISTORY: Difficulty breathing progress study. History of asthma, COPD, thoracic aortic aneu rysm, and Graves' disease TECHNIQUE: Single AP portable upright view of the chest is obtained. COMPARISON: Chest x-ray from one day earlier and older studies. FINDINGS: Fusion plate over left clavicle is redemonstrated. There is chronic parenchymal change wit h persistent left basilar opacity. There is cardiomegaly with atherosclerotic and ectatic thoracic ao rta. Concentric tracheal narrowing superior to this is redemonstrated. Osseous structures are deminer alized. IMPRESSION: Overall stable findings, cardiomegaly and chronic changes with left basilar opacity fav oring acute infiltrate and/or atelectasis as is new from older studies.
[2018-09-22] MEDS: ENOXAPARIN 40 MG/0.4 ML SYRINGE SQ SCH (09:12)
[2018-09-22] MEDS: IPRATROPIUM-ALBUTEROL 3 ML NEB INHALATION SCH ×4 (09:40→19:58)
[2018-09-22] MEDS ORDERED: IPRATROPIUM-ALBUTEROL 3 ML NEB INHALATION PRN (09:56)
[2018-09-22] MEDS ORDERED: ALPRAZolam 0.5 MG TAB PO PRN (09:57)
[2018-09-22] MEDS ORDERED: PANTOPRAZOLE 40 MG/10 ML VIAL IVP SCH (10:00)
[2018-09-22] MEDS: AZITHROMYCIN 500 MG TAB PO SCH (11:22)
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
[2018-09-22 12:10] VITALS: BMI 22.7
[2018-09-22] MEDS: methylPREDNISolone SOD SUCCI 125 MG/2 ML VIAL IV SCH ×2 (14:10→19:00)
[2018-09-22] MEDS: SODIUM CHLORIDE 0.9% 1,000 ML IV SCH ×2 (14:11→19:02)
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
[2018-09-22] MEDS: SYMBICORT 160-4.5 MCG INHALER INHALATION SCH (19:58)
[2018-09-22] MEDS: ALPRAZolam 0.5 MG TAB PO PRN (21:10)
[2018-09-22] MEDS: HYDROcodone/APAP 10-325MG 1 EACH TAB PO PRN (21:11)
[2018-09-22] MEDS: ATORVASTATIN 10 MG TAB PO SCH (22:21)
[2018-09-23] MEDS: methylPREDNISolone SOD SUCCI 125 MG/2 ML VIAL IV SCH ×5 (00:26→23:33)
[2018-09-23] MEDS: SODIUM CHLORIDE 0.9% 1,000 ML IV SCH ×2 (06:21→20:49)
--- NOTE | 2018-09-23 06:24 | XR ---
EXAMINATION TYPE: XR chest 1V portable DATE OF EXAM: 09/23/2018 HISTORY: SOB. REFERENCE: Previous study dated 09/22/2018. FINDINGS: There has been internal fixation of the left clavicle. Lung volumes are prominent. The heart is enlarged. There is vascular congestion and mild interstitial change. I could not exclude tiny, bilateral effusions. IMPRESSION: CHANGES CONSISTENT WITH MILD HEART FAILURE SUPERIMPOSED UPON CHANGES OF COPD.
[2018-09-23] MEDS: HYDROcodone/APAP 10-325MG 1 EACH TAB PO PRN ×2 (06:40→21:00)
[2018-09-23] MEDS: SYMBICORT 160-4.5 MCG INHALER INHALATION SCH ×2 (08:19→19:47)
[2018-09-23] MEDS: IPRATROPIUM-ALBUTEROL 3 ML NEB INHALATION SCH ×4 (08:19→19:47)
[2018-09-23] MEDS: PANTOPRAZOLE 40 MG TABLET PO SCH (09:03)
[2018-09-23] MEDS: ENOXAPARIN 40 MG/0.4 ML SYRINGE SQ SCH (09:03)
[2018-09-23] MEDS: AZITHROMYCIN 500 MG TAB PO SCH (09:04)
[2018-09-23] MEDS: ALPRAZolam 0.5 MG TAB PO PRN (10:59)
--- NOTE | 2018-09-23 12:12 | P.PN ---
Subjective Progress Note Date: 09/23/18 Principal diagnosis: Altered mental status This is a very pleasant 68-year-old female patient who follows with Dr. Lopez as her primary care physician. She has a history of hyperlipidemia, hypertension, hypothyroidism. She also has a history of previous ventilatory dependent respiratory failure and chronic obstructive pulmonary disease and follows with Dr. Sánchez in our office for the same. She had recently been diagnosed with small cell lung cancer. This was diagnosed in April 2018. She had undergone treatment and is now currently in remission. She presented here to the emergency room yesterday after having hallucinations. She feels her oxygen was off inadvertently and she got confused on walked out after her porch. She was seen and talking with her . She also was seen by a funds development director as walking across her lawn that were not there. EMS were called by the neighbors and when they arrived her O2 saturation was 84%. Once her oxygen picked up her mental status improved as well. Chest x-ray revealed overall stable findings. There is evidence of cardiomegaly and chronic changes with left basilar opacity favoring acute infiltrate/atelectasis. Urinalysis cloudy with many WBCs. Urine culture is pending. White count 11.0. Hemoglobin 7.5. Creatinine 0.89. Urine drug screen was positive for opiates and benzodiazepines. She is seen today in consultation on the selective care unit. She is currently sitting up in a chair at the bedside. She is awake and alert and oriented 3. She recalls most of yesterday's episodes and realize she was altered at the time. She currently denies any worsening shortness of breath, cough or congestion. No fever chills or night sweats. She is maintaining O2 saturations in the 90s on room air. She's been afebrile. Hemodynamically stable. She's been initiated on bronchodilators, Symbicort, IV Solu-Medrol, antibiotics in the form of ceftriaxone and azithromycin. 0.9 normal saline at 75 ML's per hour. The patient is seen today 09/23/2018 in follow-up on the selective care unit. She is currently awake and alert in no acute distress. Her son is at the bedside. She is somewhat teary-eyed as she is not able to be discharged home today due to a urinary tract infection of gram-negative bacilli and continued issues with altered mental status. She is oriented currently. Last night she was disoriented to time and place. She had been quite depressed and a psych consult has been placed. He currently denies any worsening shortness of breath, cough or congestion. She is maintaining O2 saturations in the 90s on 4 L/m per nasal cannula. Objective - Vital Signs Vital signs: Vital Signs Temp 97.8 F 09/23/18 08:00 Pulse 100 09/23/18 11:52 Resp 18 09/23/18 11:01 BP 127/76 09/23/18 08:00 Pulse Ox 98 09/23/18 08:00 Intake & Output 09/22/18 09/23/18 09/23/18 18:59 06:59 18:59 Intake Total 1082 676 240 Balance 1082 676 240 Weight 64 kg Intake: Intake, IV Titration 500 75 Amount Sodium Chloride 0.9% 1, 500 75 000 ml @ 75 mls/hr IV . [id number] [facility] Rx#:[id number] Oral 582 601 240 Other: # Voids 1 2 - Exam GENERAL EXAM: Alert, comfortable in no apparent distress. On 4 L per nasal yudy kirill HEAD: Normocephalic. EYES: Normal reaction of pupils, equal size. NOSE: Clear with pink turbinates. THROAT: No erythema or exudates. NECK: No masses, no JVD. CHEST: No chest wall deformity. LUNGS: Equal air entry with few scattered rhonchi in the left base. Diminished. CVS: S1 and S2 normal with no audible murmur, regular rhythm. ABDOMEN: No hepatosplenomegaly, normal bowel sounds, no guarding or rigidity. SPINE: No scoliosis or deformity SKIN: No rashes CENTRAL NERVOUS SYSTEM: No focal deficits, tone is normal in all 4 extremities. EXTREMITIES: There is no peripheral edema. No clubbing, no cyanosis. Peripheral pulses are intact. - Labs CBC & Chem 7: 09/21/18 19:18 09/22/18 06:19 Labs: Microbiology - Last 24 Hours (Table) 09/21/18 19:18 Blood Culture - Preliminary Blood No Growth after 24 hours 09/21/18 20:18 Urine Culture - Preliminary Urine,Catheterized Gram Neg Bacilli Assessment and Plan Assessment: Impression: #1 Altered mental status secondary to home oxygen disconnection with O2 saturations in the low 80s. Also urine drug screen positive for opiates and benzodiazepines. #2 Acute on chronic hypoxemic respiratory failure secondary to above. #3 History of small cell lung cancer, locally advanced, status post chemoradiation. #4 History of endobronchial stent in the left mainstem bronchus.. #5 Chronic hypoxemic and hypercapnic respiratory failure secondary to advanced chronic obstructive pulmonary disease. #6 Chronic tobacco dependence. Plan: The patient was seen and evaluated by Dr. Caal. The patient is stable from the pulmonary standpoint. We'll continue with the current treatment plan including IV steroids, bronchodilators, antibiotics. Urine culture pending. Psychiatry has been consulted regarding her depression and altered mental status. I, the cosigning physician, performed a history & physical examination of the patient. Lungs sounds with faint end expiratory wheeze, crackles in left base with diminished. Maintaining good O2 saturations in the 90s on 3 L/m per nasal cannula. I discussed the assessment and plan of care with my nurse practitioner, Sonia Schwab. I attest to the above note as dictated by her.
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
--- NOTE | 2018-09-23 20:30 | P.CN ---
Psychiatric Consult - . Consult date: 09/23/18 Consult:: 09/23/18 20:25 Reason For Consultation: Worsening depression HPI: Ms. Kern is 68 yo single female admitted here secondary to worsening anemia. Psych was consulted as she was feeling very depressed. Found her alert, awake and oriented in all spheres. Found her very anxious and depressed. Reports increase frequency of crying spells and worseninganxiety. Denies any suicidal or homicidal ideation. MSE : AAO x 4. Poor eye contact. Speech soft tone. Mood depressed with congruent affect. Denies any suicidal or homicidal ideation. No psychoses. Insight and judgment fair Major Depression Delirium secondary to multiple etiologies Will resume her cymbalta. Her mental status will improve further once herunderlying causes of delirium corrected.
[2018-09-23] MEDS: ATORVASTATIN 10 MG TAB PO SCH (20:54)
[2018-09-24] MEDS: methylPREDNISolone SOD SUCCI 125 MG/2 ML VIAL IV SCH (05:48)
[2018-09-24] MEDS: PANTOPRAZOLE 40 MG TABLET PO SCH (07:15)
[2018-09-24] MEDS: ENOXAPARIN 40 MG/0.4 ML SYRINGE SQ SCH (07:15)
[2018-09-24] MEDS: SODIUM CHLORIDE 0.9% 1,000 ML IV SCH (07:16)
[2018-09-24 08:31] VITALS: BP 135/84; RESP 18; TEMP 97.6
[2018-09-24] MEDS: AZITHROMYCIN 500 MG TAB PO SCH (08:39)
[2018-09-24] MEDS: SYMBICORT 160-4.5 MCG INHALER INHALATION SCH (08:53)
[2018-09-24] MEDS: IPRATROPIUM-ALBUTEROL 3 ML NEB INHALATION SCH ×2 (08:53→11:40)
[2018-09-24] MEDS ORDERED: DULoxetine HCL 60 MG CAPSULE.DR PO SCH (09:00)
[2018-09-24] MEDS: HYDROcodone/APAP 10-325MG 1 EACH TAB PO PRN (09:05)
--- NOTE | 2018-09-24 11:06 | P.PN ---
Subjective Progress Note Date: 09/24/18 Principal diagnosis: Altered mental status This is a very pleasant 68-year-old female patient who follows with Dr. Lopez as her primary care physician. She has a history of hyperlipidemia, hypertension, hypothyroidism. She also has a history of previous ventilatory dependent respiratory failure and chronic obstructive pulmonary disease and follows with Dr. Sánchez in our office for the same. She had recently been diagnosed with small cell lung cancer. This was diagnosed in April 2018. She had undergone treatment and is now currently in remission. She presented here to the emergency room yesterday after having hallucinations. She feels her oxygen was off inadvertently and she got confused on walked out after her porch. She was seen and talking with her . She also was seen by a oyster shucker as walking across her lawn that were not there. EMS were called by the neighbors and when they arrived her O2 saturation was 84%. Once her oxygen picked up her mental status improved as well. Chest x-ray revealed overall stable findings. There is evidence of cardiomegaly and chronic changes with left basilar opacity favoring acute infiltrate/atelectasis. Urinalysis cloudy with many WBCs. Urine culture is pending. White count 11.0. Hemoglobin 7.5. Creatinine 0.89. Urine drug screen was positive for opiates and benzodiazepines. She is seen today in consultation on the selective care unit. She is currently sitting up in a chair at the bedside. She is awake and alert and oriented 3. She recalls most of yesterday's episodes and realize she was altered at the time. She currently denies any worsening shortness of breath, cough or congestion. No fever chills or night sweats. She is maintaining O2 saturations in the 90s on room air. She's been afebrile. Hemodynamically stable. She's been initiated on bronchodilators, Symbicort, IV Solu-Medrol, antibiotics in the form of ceftriaxone and azithromycin. 0.9 normal saline at 75 ML's per hour. The patient is seen today 09/23/2018 in follow-up on the selective care unit. She is currently awake and alert in no acute distress. Her son is at the bedside. She is somewhat teary-eyed as she is not able to be discharged home today due to a urinary tract infection of gram-negative bacilli and continued issues with altered mental status. She is oriented currently. Last night she was disoriented to time and place. She had been quite depressed and a psych consult has been placed. He currently denies any worsening shortness of breath, cough or congestion. She is maintaining O2 saturations in the 90s on 4 L/m per nasal cannula. The patient is seen today 09/24/2017 in follow-up on the selective care unit. She is currently sitting up in bed. Awake and alert in no acute distress. Her mood is better today as compared to yesterday. She denies any worsening short ness of breath, cough or congestion. No chills or night sweats. She is maintaining good O2 saturations in the 90s on 4 L/m per nasal cannula. She's been afebrile. Hemodynamically stable. Urine culture positive for E. coli. Blood culture reveals no growth. She was seen and evaluated by psychiatric services yesterday. Her Cymbalta has been resumed. No suicidal or homicidal ideation. Objective - Vital Signs Vital signs: Vital Signs Temp 97.6 F 09/24/18 08:00 Pulse 100 09/24/18 09:08 Resp 18 09/24/18 08:00 BP 135/84 09/24/18 08:00 Pulse Ox 99 09/24/18 08:00 Intake & Output 09/23/18 09/24/18 09/24/18 18:59 06:59 18:59 Intake Total 240 765 Balance 240 765 Weight 62 kg Intake: Intake, IV Titration 365 Amount Sodium Chloride 0.9% 1, 365 000 ml @ 50 mls/hr IV . Q20H [facility] Rx#:[id number] Oral 240 400 Other: # Voids 1 - Exam GENERAL EXAM: Alert, comfortable in no apparent distress. On 4 L per nasal cannula HEAD: Normocephalic. EYES: Normal reaction of pupils, equal size. NOSE: Clear with pink turbinates. THROAT: No erythema or exudates. NECK: No masses, no JVD. CHEST: No chest wall deformity. LUNGS: Equal air entry with few scattered rhonchi in the left base. Diminished. CVS: S1 and S2 normal with no audible murmur, regular rhythm. ABDOMEN: No hepatosplenomegaly, normal bowel sounds, no guarding or rigidity. SPINE: No scoliosis or deformity SKIN: No rashes CENTRAL NERVOUS SYSTEM: No focal deficits, tone is normal in all 4 extremities. EXTREMITIES: There is no peripheral edema. No clubbing, no cyanosis. Peripheral pulses are intact. - Labs CBC & Chem 7: 09/21/18 19:18 09/22/18 06:19 Labs: Microbiology - Last 24 Hours (Table) 09/21/18 19:18 Blood Culture - Preliminary Blood No Growth after 48 hours 09/21/18 20:18 Urine Culture - Final Urine,Catheterized Escherichia coli Assessment and Plan Assessment: Impression: #1 Altered mental status secondary to home oxygen disconnection with O2 saturations in the low 80s. Also urine drug screen positive for opiates and benzodiazepines. #2 Acute on chronic hypoxemic respiratory failure secondary to above. #3 History of small cell lung cancer, locally advanced, status post chemoradiation. #4 History of endobronchial stent in the left mainstem bronchus.. #5 Chronic hypoxemic and hypercapnic respiratory failure secondary to advanced chronic obstructive pulmonary disease. #6 Chronic tobacco dependence. #7 Depression, Cymbalta renewed. Plan: The patient was seen and evaluated by Dr. Caal. She is cleared for discharge from the pulmonary standpoint. Complete a prednisone taper starting at 30 mg daily for 4 days. Complete her course of antibiotics for the E. coli urinary tract infection. Follow up with Dr. Sánchez in our office in 1-2 weeks' time. She is encouraged to call sooner with any recurrence of symptoms or other questions or concerns. I, the cosigning physician, performed a history & physical examination of the patient. Lungs sounds with faint end expiratory wheeze, crackles in left base with diminished. Maintaining good O2 saturations in the 90s on 4 L/m per nasal cannula. I discussed the assessment and plan of care with my nurse practi Sonia amin. I attest to the above note as dictated by her.
[2018-09-24 12:25] VITALS: PULSE 114
[2018-09-24] MEDS ORDERED: cefTRIAXone 1,000 MG VIAL (IM USE) IM STA (13:21)
--- NOTE | 2018-09-24 17:28 | P.DS ---
Providers Date of admission: 09/21/18 20:16 Attending physician: Iva Avery Consults: 09/21/18 20:19 Consult Physician Routine Consulting Provider: Piedad Sánchez Consult Reason/Comments: known Do you want consulting provider notified?: Yes 09/21/18 23:29 Consult Physician Routine Consulting Provider: Kenny Wetzel Consult Reason/Comments: Depression Do you want consulting provider notified?: Yes, Notify in am 09/22/18 11:25 Consult Physician Routine Consulting Provider: Kenny Wetzel Consult Reason/Comments: confusion; judgement Do you want consulting provider notified?: Yes 09/22/18 11:31 Consult Physician Urgent Consulting Provider: Kishor Caal Consult Reason/Comments: copd and pna Do you want consulting provider notified?: Yes Primary care physician: [facility] Course: Diagnoses Altered mental status secondary to discontinuation of home oxygen with oxygen saturation in the low 80s. & positive drug screen for benzodiazepines and opiates Acute hypoxic respiratory failure secondary to above Urinary tract infection Depression, evaluated by psychiatric is a started on Cymbalta History of small lung cancer, status post chemoradiation therapy Community-acquired pneumonia Essential hypertension Hyperlipidemia History of COPD, on home oxygen Hospital course This is a pleasant 68 years old female with past medical history of asthma/COPD, hyperlipidemia, hypertension, hypothyroidism, donated kidney stone, presents because of hypoxia, oxygen saturation was 88% on admission. Patient was placed on BiPAP. Patient was treated with steroids and breathing treatment. She has been evaluated by kiln cleaner. Patient returned to her baseline and she will be discharged on tapered steroids. All the patient found to have urinary tract infection which is sensitive to antibiotics. Appropriate antibiotics provided the patient, the day of discharge patient felt better and her bladder. Psychiatrist evaluated the patient for depression and started on Cymbalta. Physical therapy recommended home with supervision 17/01. I discussed these findings and recommendation with the patient and son at bedside including the physical therapy recommendation. Problems and management plan was discussed with the patient and she verbalized understanding and acceptance Patient was found stable and can be discharged guarded prognosis however she needs follow-up as an outpatient. Because this weekend appointments could not be made for her. Patient was instructed to follow-up with her PCP and Dr. Sánchez the kiln cleaner within one week and she verbalized understanding and acceptance Gen: patient is a AAOx3, no distress CVS: S1-S2, RRR, no murmur Lungs: B/L CTA, no wheezing Abdomen: soft, no distention, no tenderness, positive bowel sounds Extremity: no leg edema or induration Time spent more than 35 minutes Patient Condition at Discharge: Serious Plan - Discharge Summary New Discharge Prescriptions: New RX: Cefuroxime [Ceftin] 500 mg PO BID 7 Days #28 tablet RX: DULoxetine HCL [Cymbalta] 60 mg PO DAILY #30 capsule. RX: predniSONE 30 mg PO DIRECTED #18 tab RX: Pantoprazole [Protonix] 40 mg PO DAILY #30 tablet. Continue RX: Metoprolol Succinate [Toprol XL] 25 mg PO DAILY RX: DULoxetine HCL [Cymbalta] 60 mg PO DAILY RX: DULoxetine HCL [Cymbalta] 30 mg PO DAILY RX: Cholecalciferol [Vitamin D3] 1,000 unit PO DAILY RX: ALPRAZolam [Xanax] 0.5 mg PO BID PRN PRN Reason: Anxiety RX: Methimazole [Tapazole] 5 mg PO DAILY RX: Calcium Carbonate/Vitamin D3 [Calcium 500-Vit D3 600 Tablet] 1 tab PO DAILY RX: Albuterol Sulfate [Proair Hfa] 2 puff INHALATION RT-Q4H PRN PRN Reason: Shortness Of Breath RX: Atorvastatin [Lipitor] 10 mg PO HS #30 tab RX: Budesonide-Formot 160-4.5 Mcg [Symbicort 160-4.5 Mcg Inhaler] 2 puff INHALATION RT-BID RX: Montelukast [Singulair] 10 mg PO DAILY RX: Guaifenesin/Dextromethorphan [Robitussin Lrkyl-Dweka-Icjd Dm] 1 cap PO Q6H PRN PRN Reason: Cough RX: Docusate [Colace] 100 mg PO DAILY RX: Aspirin EC [Ecotrin Low Dose] 81 mg PO DAILY RX: Ondansetron HCl [Zofran] 8 mg PO Q6HR PRN PRN Reason: Nausea Discontinued RX: HYDROcodone/APAP 10-325MG [[place] 10-325] 1 tab PO Q6HR PRN PRN Reason: Pain RX: amLODIPine [Norvasc] 10 mg PO DAILY #30 tab Ibuprofen [Motrin Ib] 200 mg PO Q6H PRN PRN Reason: Pain Discharge Medication List RX: DULoxetine HCL [Cymbalta] 60 mg PO DAILY 03/25/17 [History] RX: Metoprolol Succinate [Toprol XL] 25 mg PO DAILY 03/25/17 [History] RX: DULoxetine HCL [Cymbalta] 30 mg PO DAILY 03/06/18 [History] RX: Cholecalciferol [Vitamin D3] 1,000 unit PO DAILY 05/14/18 [History] RX: ALPRAZolam [Xanax] 0.5 mg PO BID PRN 07/25/18 [History] RX: Methimazole [Tapazole] 5 mg PO DAILY 07/25/18 [History] RX: Albuterol Sulfate [Proair Hfa] 2 puff INHALATION RT-Q4H PRN 08/31/18 [History] RX: Atorvastatin [Lipitor] 10 mg PO HS #30 tab 08/31/18 [Rx] RX: Calcium Carbonate/Vitamin D3 [Calcium 500-Vit D3 600 Tablet] 1 tab PO DAILY 08/31/18 [History] RX: Budesonide-Formot 160-4.5 Mcg [Symbicort 160-4.5 Mcg Inhaler] 2 puff INHALATION RT-BID 09/08/18 [History] RX: Aspirin EC [Ecotrin Low Dose] 81 mg PO DAILY 09/21/18 [History] RX: Docusate [Colace] 100 mg PO DAILY 09/21/18 [History] RX: Guaifenesin/Dextromethorphan [Robitussin Tbcia-Yisbe-Ffub Dm] 1 cap PO Q6H PRN 09/21/18 [History] RX: Montelukast [Singulair] 10 mg PO DAILY 09/21/18 [History] RX: Ondansetron HCl [Zofran] 8 mg PO Q6HR PRN 09/21/18 [History] RX: Cefuroxime [Ceftin] 500 mg PO BID 7 Days #28 tablet 09/24/18 [Rx] RX: DULoxetine HCL [Cymbalta] 60 mg PO DAILY #30 capsule. 09/24/18 [Rx] RX: Pantoprazole [Protonix] 40 mg PO DAILY #30 tablet. 09/24/18 [Rx] RX: predniSONE 30 mg PO DIRECTED #18 tab 09/24/18 [Rx] Follow up Appointment(s)/Referral(s): Chris Lopez DO [Primary Care Provider] - 1-2 days [facility], [NON-STAFF] - Piedad Sánchez MD [STAFF PHYSICIAN] - 1 Week Patient Instructions/Handouts: Pneumonitis (DC), COPD (Chronic Obstructive Pulmonary Disease) (DC) Activity/Diet/Wound Care/Special Instructions: diabetic 1600 kcal per day activity is limited till you see your doctor Discharge Disposition: HOME WITH HOME HEALTH SERVICES
[2018-09-25] MEDS ORDERED: predniSONE 10 MG TAB PO SCH (09:00)
== END 2018-09-24 14:15 | disposition home health service (06) | DRG 193 ==
LOC: EC 18:59 → 4SSUR 20:16 → 3SCARD 21:22
PROVIDERS: ADMIT Hospitalist; ATTEND Hospitalist
PROC: 5A09357 Assistance with Respiratory Ventilation, Less than 24 Consecutive Hours, Continuous Positive Airway Pressure (ICD-10-PCS; principal; 2018-09-21)
DX: J18.9 Pneumonia, unspecified organism (principal); J96.21 Acute and chronic respiratory failure with hypoxia; G93.41 Metabolic encephalopathy; J96.22 Acute and chronic respiratory failure with hypercapnia; J44.0 Chronic obstructive pulmonary disease with (acute) lower respiratory infection; J44.1 Chronic obstructive pulmonary disease with (acute) exacerbation; N17.9 Acute kidney failure, unspecified; N39.0 Urinary tract infection, site not specified; R44.3 Hallucinations, unspecified; I11.0 Hypertensive heart disease with heart failure; I50.9 Heart failure, unspecified; E86.0 Dehydration; E03.9 Hypothyroidism, unspecified; B96.20 Unspecified Escherichia coli [E. coli] as the cause of diseases classified elsewhere; E11.9 Type 2 diabetes mellitus without complications; E78.5 Hyperlipidemia, unspecified; F17.200 Nicotine dependence, unspecified, uncomplicated; F32.9 Major depressive disorder, single episode, unspecified; F41.9 Anxiety disorder, unspecified; Z79.51 Long term (current) use of inhaled steroids; Z79.82 Long term (current) use of aspirin; Z79.899 Other long term (current) drug therapy; Z85.118 Personal history of other malignant neoplasm of bronchus and lung; Z90.5 Acquired absence of kidney; Z90.710 Acquired absence of both cervix and uterus; Z92.21 Personal history of antineoplastic chemotherapy; Z92.3 Personal history of irradiation; Z99.81 Dependence on supplemental oxygen; Z88.5 Allergy status to narcotic agent; Z88.7 Allergy status to serum and vaccine; Z87.440 Personal history of urinary (tract) infections; Z90.49 Acquired absence of other specified parts of digestive tract; Z86.010 Personal history of colon polyps; Z98.42 Cataract extraction status, left eye; Z98.41 Cataract extraction status, right eye; Z96.1 Presence of intraocular lens; Z80.0 Family history of malignant neoplasm of digestive organs
CPT/HCPCS: 36415; 51701; 71045; 71046; 80048; 80053; 80306; 81001; 82140; 83605; 84484; 85025; 85610; 85730; 86850; 86900; 86901; 87040; 87077; 87086; 87186; 93005; 94640; 94660; 94760; 96361; 96365; 99285

== ENCOUNTER 2018-10-07 01:12 | Emergency (ER) | payer MEDICARE ==
--- NOTE | 2018-10-07 01:29 | ED ---
SOB HPI - General Chief Complaint: Shortness of Breath Stated Complaint: MAYELIN Time Seen by Provider: 10/07/18 01:19 Source: patient, EMS Mode of arrival: EMS - History of Present Illness Initial Comments: Reveal nose a 68-year-old female with extensive past medical history, currently undergoing chemotherapy and same urgent department today for evaluation of persistent shortness of breath and fatigue. Patient reports that she underwent around of chemo last week patient states that she just feels horribly run down from this chemotherapy and today she was feeling like she is having a COPD exacerbation and shortness breath. She did a breathing treatment at home continued to feel short of breath at which time she called EMS to bring her to the hospital for further evaluation she received a second breathing treatment in route reports feeling somewhat better upon arrival. Patient denies any chest pain or palpitations she denies any recent fevers chills nausea or vomiting. Patient does report generalized malaise. She's been noted to have worsening anemia due to chemotherapy. She denies any active bleeding. Patient was recently on oral steroids and discontinued their use yesterday after the dose was done. - Related Data Home Medications Medication Instructions Recorded Confirmed DULoxetine HCL [Cymbalta] 60 mg PO DAILY 03/25/17 09/21/18 Metoprolol Succinate [Toprol XL] 25 mg PO DAILY 03/25/17 09/21/18 DULoxetine HCL [Cymbalta] 30 mg PO DAILY 03/06/18 09/21/18 Cholecalciferol [Vitamin D3] 1,000 unit PO DAILY 05/14/18 09/21/18 ALPRAZolam [Xanax] 0.5 mg PO BID PRN 07/25/18 09/21/18 Methimazole [Tapazole] 5 mg PO DAILY 07/25/18 09/21/18 Albuterol Sulfate [Proair Hfa] 2 puff INHALATION RT-Q4H PRN 08/31/18 09/21/18 Calcium Carbonate/Vitamin D3 1 tab PO DAILY 08/31/18 09/21/18 [Calcium 500-Vit D3 600 Tablet] Budesonide-Formot 160-4.5 Mcg 2 puff INHALATION RT-BID 09/08/18 09/21/18 [Symbicort 160-4.5 Mcg Inhaler] Aspirin EC [Ecotrin Low Dose] 81 mg PO DAILY 09/21/18 09/21/18 Docusate [Colace] 100 mg PO DAILY 09/21/18 09/21/18 Guaifenesin/Dextromethorphan 1 cap PO Q6H PRN 09/21/18 09/21/18 [Robitussin Tdswf-Avhqb-Nlsc Dm] Montelukast [Singulair] 10 mg PO DAILY 09/21/18 09/21/18 Ondansetron HCl [Zofran] 8 mg PO Q6HR PRN 09/21/18 09/21/18 Previous Rx's Medication Instructions Recorded Atorvastatin [Lipitor] 10 mg PO HS #30 tab 08/31/18 Cefuroxime [Ceftin] 500 mg PO BID 7 Days #28 tablet 09/24/18 DULoxetine HCL [Cymbalta] 60 mg PO DAILY #30 capsule. 09/24/18 Pantoprazole [Protonix] 40 mg PO DAILY #30 tablet. 09/24/18 predniSONE 30 mg PO DIRECTED #18 tab 09/24/18 Allergies Allergy/AdvReac Type Severity Reaction Status Date / Time Influenza Virus Vaccines Allergy Dyspnea Verified 09/21/18 19:11 hydromorphone [From Dilaudid] AdvReac Hallucinati Verified 09/21/18 19:11 ons Review of Systems ROS Statement: Those systems with pertinent positive or pertinent negative responses have been documented in the HPI. ROS Other: All systems not noted in ROS Statement are negative. Past Medical History Past Medical History: Asthma, Cancer, COPD, Hyperlipidemia, Hypertension, Pn eumonia, Thyroid Disorder Additional Past Medical History / Comment(s): ecent UTI-now resolved, 2015 resp arrest, on vent here FEB 2017-resp. failure-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 polypectomy bleed and was in ICU, Graves disease, hx uti-ecoli 06-08-18 ,thoracic aortic anuerysm -being monitored. lung cancer pt stated due for chemo 07-26-18 and had radiation 07-17-18".pt stated they put a stent in my lung" History of Any Multi-Drug Resistant Organisms: None Reported Past Surgical History: Cholecystectomy, Hysterectomy, Orthopedic Surgery Additional Past Surgical History / Comment(s): R nephrectomy, 2012 laparotomy with lysis of adhesions from kidney surgery causing bowel obstruction. L s houlder and collar bone surgery, colonoscopy with polypectomy, cataract surg- lens implants. Past Anesthesia/Blood Transfusion Reactions: No Reported Reaction Additional Past Anesthesia/Blood Transfusion Reaction / Comment(s): Pt has never received blood. Past Psychological History: Depression Smoking Status: Former smoker Past Alcohol Use History: None Reported Past Drug Use History: None Reported - Past Family History Father Family Medical History: Cancer Additional Family Medical History / Comment(s): Pancreatic cancer and passed when he was 58 Mother Family Medical History: No Reported History Additional Family Medical History / Comment(s): None General Exam - General Exam Comments Initial Comments: Physical Exam GENERAL: Chronically ill-appearing chemotherapy patient HENT: Normocephalic, Atraumatic. Hair loss secondary to chemotherapy EYES: PERRL, EOMI Conjunctiva pallor PULMONARY: Mild wheezing in all lung gee CARDIOVASCULAR: There is a regular rate and rhythm without any murmurs gallops or rubs. ABDOMEN: Soft and nontender with normal bowel sounds. SKIN: Pale : Deferred NEUROLOGIC: Patient is alert and oriented x3. Moving all extremities spontaneously MUSCULOSKELETAL: Normal extremities with adequate strength and full range of motion. No lower extremity swelling or edema. No calf tenderness. PSYCHIATRIC: Normal psychiatric evaluation. Limitations: no limitations Course Vital Signs 10/07/18 10/07/18 10/07/18 01:17 01:20 02:20 Temperature 98.8 F Pulse Rate 100 88 Respiratory 16 17 Rate Blood Pressure 107/71 107/71 O2 Sat by Pulse 97 99 97 Oximetry 10/07/18 10/07/18 10/07/18 03:00 03:40 04:00 Temperature Pulse Rate 84 92 95 Respiratory 19 20 16 Rate Blood Pressure 128/76 O2 Sat by Pulse Oximetry 10/07/18 10/07/18 10/07/18 04:10 04:23 04:29 Temperature Pulse Rate 93 95 102 H Respiratory 16 Rate Blood Pressure 128/76 O2 Sat by Pulse Oximetry 10/07/18 10/07/18 10/07/18 04:30 04:50 05:10 Temperature Pulse Rate 98 92 101 H Respiratory 16 16 18 Rate Blood Pressure 111/91 125/92 127/85 O2 Sat by Pulse 99 99 99 Oximetry 10/07/18 10/07/18 05:30 06:21 Temperature 98.0 F Pulse Rate 93 Respiratory 17 Rate Blood Pressure 138/80 O2 Sat by Pulse 94 L Oximetry Medical Decision Making - Medical Decision Making Patient was seen and evaluated history was obtained from patient and review of medical record This is a 68-year-old female currently undergoing chemotherapy and radiation for treatment of lung cancer who presents for evaluation of shortness of breath which is improving with repeated breathing treatments and generalized malaise her last round of chemo Labs and imaging ordered Chest x-ray with chronic changes no acute findings Labs with leukopenia, anemia which is worsening, no other significant abnormalities Labs and imaging were discussed with the patient patient reports feeling better after a repeat breathing treatment. She sleeping comfortably in bed. At this time patient is comfortable with plan for discharge home and continued outpatient follow-up. I did offer the patient admission due to her generalized malaise and worsening condition well undergoing chemotherapy however she reports she feels she would do better home. - Lab Data Result diagrams: 10/07/18 01:30 10/07/18 01:30 Lab Results 10/07/18 10/07/18 10/07/18 Range/Units 01:30 01:30 01:30 WBC 3.8 (3.8-10.6) k/uL RBC 2.31 L (3.80-5.40) m/uL Hgb 7.0 L (11.4-16.0) gm/dL Hct 21.2 L (34.0-46.0) % MCV 91.9 (80.0-100.0) fL MCH 30.6 (25.0-35.0) pg MCHC 33.3 (31.0-37.0) g/dL RDW 17.2 H (11.5-15.5) % Plt Count 64 L (150-450) k/uL Neutrophils % (Manual) 62 % Band Neutrophils % 12 % Lymphocytes % (Manual) 18 % Monocytes % (Manual) 3 % Eosinophils % (Manual) 1 % Metamyelocytes % 1 % Promyelocytes % 3 % Neutrophils # (Manual) 2.80 (1.3-7.7) k/uL Lymphocytes # (Manual) 0.68 L (1.0-4.8) k/uL Monocytes # (Manual) 0.11 (0-1.0) k/uL Eosinophils # (Manual) 0.04 (0-0.7) k/uL Metamyelocytes # (Man) 0.04 H (0) k/uL Promyelocytes # (Man) 0.11 H (0) k/uL Nucleated RBCs 0 (0-0) /100 WBC Manual Slide Review Performed Poikilocytosis Slight Anisocytosis Slight Tear Drop Cells Present PT (9.0-12.0) sec INR (<1.2) APTT (22.0-30.0) sec Sodium 142 (137-145) mmol/L Potassium 3.6 (3.5-5.1) mmol/L Chloride 102 (98-107) mmol/L Carbon Dioxide 32 H (22-30) mmol/L Anion Gap 8 mmol/L BUN 34 H (7-17) mg/dL Creatinine 1.06 H (0.52-1.04) mg/dL Est GFR (CKD-EPI)AfAm 63 (>60 ml/min/1.73 sqM) Est GFR (CKD-EPI)NonAf 55 (>60 ml/min/1.73 sqM) Glucose 106 H (74-99) mg/dL Plasma Lactic Acid Arben 1.1 (0.7-2.0) mmol/L Calcium 10.3 H (8.4-10.2) mg/dL Total Bilirubin 0.5 (0.2-1.3) mg/dL AST 10 L (14-36) U/L ALT 18 (9-52) U/L Alkaline Phosphatase 96 (38-126) U/L Troponin I (0.000-0.034) ng/mL Total Protein 5.9 L (6.3-8.2) g/dL Albumin 3.9 (3.5-5.0) g/dL Urine Color Urine Appearance (Clear) Urine pH (5.0-8.0) Ur Specific Pierre Part (1.001-1.035) Urine Protein (Negative) Urine Glucose (UA) (Negative) Urine Ketones (Negative) Urine Blood (Negative) Urine Nitrite (Negative) Urine Bilirubin (Negative) Urine Urobilinogen (<2.0) mg/dL Ur Leukocyte Esterase (Negative) Urine RBC (0-5) /hpf Urine WBC (0-5) /hpf Ur Squamous Epith Cells (0-4) /hpf Urine Mucus (None) /hpf 10/07/18 10/07/18 10/07/18 Range/Units 01:30 01:30 01:40 WBC (3.8-10.6) k/uL RBC (3.80-5.40) m/uL Hgb (11.4-16.0) gm/dL Hct (34.0-46.0) % MCV (80.0-100.0) fL MCH (25.0-35.0) pg MCHC (31.0-37.0) g/dL RDW (11.5-15.5) % Plt Count (150-450) k/uL Neutrophils % (Manual) % Band Neutrophils % % Lymphocytes % (Manual) % Monocytes % (Manual) % Eosinophils % (Manual) % Metamyelocytes % % Promyelocytes % % Neutrophils # (Manual) (1.3-7.7) k/uL Lymphocytes # (Manual) (1.0-4.8) k/uL Monocytes # (Manual) (0-1.0) k/uL Eosinophils # (Manual) (0-0.7) k/uL Metamyelocytes # (Man) (0) k/uL Promyelocytes # (Man) (0) k/uL Nucleated RBCs (0-0) /100 WBC Manual Slide Review Poikilocytosis Anisocytosis Tear Drop Cells PT 9.7 (9.0-12.0) sec INR 0.9 (<1.2) APTT 19.1 L (22.0-30.0) sec Sodium (137-145) mmol/L Potassium (3.5-5.1) mmol/L Chloride (98-107) mmol/L Carbon Dioxide (22-30) mmol/L Anion Gap mmol/L BUN (7-17) mg/dL Creatinine (0.52-1.04) mg/dL Est GFR (CKD-EPI)AfAm (>60 ml/min/1.73 sqM) Est GFR (CKD-EPI)NonAf (>60 ml/min/1.73 sqM) Glucose (74-99) mg/dL Plasma Lactic Acid Arben (0.7-2.0) mmol/L Calcium (8.4-10.2) mg/dL Total Bilirubin (0.2-1.3) mg/dL AST (14-36) U/L ALT (9-52) U/L Alkaline Phosphatase (38-126) U/L Troponin I <0.012 (0.000-0.034) ng/mL Total Protein (6.3-8.2) g/dL Albumin (3.5-5.0) g/dL Urine Color Yellow Urine Appearance Clear (Clear) Urine pH 5.5 (5.0-8.0) Ur Specific Pierre Part 1.020 (1.001-1.035) Urine Protein 1+ H (Negative) Urine Glucose (UA) Negative (Negative) Urine Ketones Negative (Negative) Urine Blood Negative (Negative) Urine Nitrite Negative (Negative) Urine Bilirubin Negative (Negative) Urine Urobilinogen <2.0 (<2.0) mg/dL Ur Leukocyte Esterase Negative (Negative) Urine RBC 1 (0-5) /hpf Urine WBC 5 (0-5) /hpf Ur Squamous Epith Cells 3 (0-4) /hpf Urine Mucus Moderate H (None) /hpf Disposition Clinical Impression: Acute exacerbation of chronic obstructive airways disease Disposition: HOME SELF-CARE Condition: Stable Instructions (If sedation given, give patient instructions): Chronic Bronchitis (ED) Is patient prescribed a controlled substance at d/c from ED?: No Referrals: Chris Lopez DO [Primary Care Provider] - 1-2 days
[2018-10-07] MEDS ORDERED: SODIUM CHLORIDE 0.9% 1,000 ML IV SCH (01:30)
[2018-10-07 01:56] LABS: Albumin 3.9 g/dL (3.5-5.0); Calcium 10.3 mg/dL (8.4-10.2); Potassium 3.6 mmol/L (3.5-5.1); Total Bilirubin 0.5 mg/dL (0.2-1.3); Total Protein 5.9 g/dL (6.3-8.2)
[2018-10-07 02:01] LABS: Anisocytosis Slight; HCT 21.2 % (34.0-46.0); MCH 30.6 pg (25.0-35.0); MCHC 33.3 g/dL (31.0-37.0); MCV 91.9 fL (80.0-100.0); Mean Platelet Volume 8.6; Poikilocytosis Slight; RBC 2.31 m/uL (3.80-5.40); RDW 17.2 % (11.5-15.5); WBC 3.8 k/uL (3.8-10.6)
[2018-10-07 02:01] LABS: Appearance,Urine Clear (Clear); Bilirubin,Urine Negative (Negative); Blood,Urine Negative (Negative); Color,Urine Yellow; Glucose,Urine (UA) Negative (Negative); Ketones,Urine Negative (Negative); Leukocyte Esterase,Urine Negative (Negative); Mucus,Urine Moderate /hpf; Nitrite,Urine Negative (Negative); PH, Urine 5.5 (5.0-8.0); Protein,Urine 1+ (Negative); RBC,Urine 1 /hpf (0-5); Squamous Epithelial Cell,Urine 3 /hpf (0-4); Urobilinogen,Urine <2.0 mg/dL (<2.0)
[2018-10-07 02:05] LABS: INR 0.9 (<1.2); Prothrombin Time 9.7 sec (9.0-12.0)
--- NOTE | 2018-10-07 02:07 | XR ---
EXAM: XR Chest, 2 Views CLINICAL HISTORY: Reason: MAYELIN TECHNIQUE: Frontal and lateral views of the chest. COMPARISON: Portable chest x-ray 09/23/2018 FINDINGS: Lungs: Lungs are hyperaerated. No focal pulmonary infiltrates or consolidations. Small 1.2 cm nodular density projects to left mid lung zone which is of indeterminate etiology and could be related to healing rib fracture or possible pulmonary nodule. This was not clearly evident on prior chest x-ray 09/23/2018. Pleural space: No evidence of pneumothorax or pleural effusion. Heart: Borderline cardiomegaly Mediastinum: Mediastinal structures are unremarkable. Bones/joints: Generalized osseous demineralization. Moderate to severe T5 and T8 vertebral compression fractures as well as mild L1 vertebral compression fracture which are of indeterminate age. Left clavicle internal fixation plate. Vasculature: Thoracic aorta is elongated. IMPRESSION: Borderline cardiomegaly. Pulmonary hyperaeration suggestive of COPD. No evidence of acute cardiopulmonary disease. Small left mid lung pulmonary nodular density which is of indeterminate etiology. Bony findings as described in body of report.
[2018-10-07 02:33] LABS: Band Neutrophils % 12 %; Eosinophils # (M) 0.04 k/uL (0-0.7); Lymphocytes # (M) 0.68 k/uL (1.0-4.8); Metamyelocytes # (M) 0.04 k/uL (0); Metamyelocytes % 1 %; Monocytes # (M) 0.11 k/uL (0-1.0); Neutrophils % (M) 62 %; Nucleated Red Blood Cells 0 /100 WBC (0-0); Promyelocytes # (M) 0.11 k/uL (0); Promyelocytes % 3 %; Tear Drop Cells Present; Total Cells Counted 200
[2018-10-07 02:34] LABS: Partial Thromboplastin Time 19.1 sec (22.0-30.0); Platelet Count 64 k/uL (150-450)
[2018-10-07] MEDS ORDERED: IPRATROPIUM-ALBUTEROL 3 ML NEB INHALATION STA (04:21)
[2018-10-07 05:37] VITALS: BP 138/80; PULSE 93; RESP 17
[2018-10-07 06:22] VITALS: TEMP 98
== END 2018-10-07 05:50 | disposition home or self-care (01) ==
LOC: EC 01:12
DX: J44.1 Chronic obstructive pulmonary disease with (acute) exacerbation (principal); C34.90 Malignant neoplasm of unspecified part of unspecified bronchus or lung; D64.81 Anemia due to antineoplastic chemotherapy; L65.8 Other specified nonscarring hair loss; T45.1X5A Adverse effect of antineoplastic and immunosuppressive drugs, initial encounter; I10 Essential (primary) hypertension; F32.9 Major depressive disorder, single episode, unspecified; Z79.82 Long term (current) use of aspirin; Z79.51 Long term (current) use of inhaled steroids; Z79.899 Other long term (current) drug therapy; Z88.5 Allergy status to narcotic agent; Z88.7 Allergy status to serum and vaccine; Z87.891 Personal history of nicotine dependence; Z90.5 Acquired absence of kidney; Z99.81 Dependence on supplemental oxygen
CPT/HCPCS: 36415; 71046; 80053; 81001; 83605; 84484; 85025; 85610; 85730; 87040; 93005; 94640; 96360; 96361; 99285

== ENCOUNTER 2018-10-12 14:56 | Inpatient (IN) | payer MEDICARE ==
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
[2018-10-12 16:38] LABS: Anisocytosis Slight; Basophils % (A) 0 %; Eosinophils % (A) 0 %; HCT 25.3 % (34.0-46.0); Hypochromasia Slight; Lymphocytes # (A) 0.3 k/uL (1.0-4.8); Lymphocytes % (A) 2 %; MCH 30.6 pg (25.0-35.0); MCHC 33.5 g/dL (31.0-37.0); MCV 91.6 fL (80.0-100.0); Mean Platelet Volume 7.7; Monocytes # (A) 0.7 k/uL (0-1.0); Monocytes % (A) 4 %; Neutrophils # (A) 13.7 k/uL (1.3-7.7); Neutrophils % (A) 93 %; Poikilocytosis Slight; RBC 2.76 m/uL (3.80-5.40); RDW 18.4 % (11.5-15.5); VBG PH 7.48 (7.31-7.41); WBC 14.9 k/uL (3.8-10.6)
[2018-10-12 16:41] LABS: HGB 8.5 gm/dL (11.4-16.0)
[2018-10-12 16:45] LABS: Albumin 3.5 g/dL (3.5-5.0); Calcium 9.2 mg/dL (8.4-10.2); Potassium 3.1 mmol/L (3.5-5.1); Total Bilirubin 0.7 mg/dL (0.2-1.3); Total Protein 5.7 g/dL (6.3-8.2)
[2018-10-12 16:55] LABS: Platelet Count 99 k/uL (150-450)
--- NOTE | 2018-10-12 17:02 | XR ---
EXAMINATION TYPE: XR chest 2V DATE OF EXAM: 10/12/2018 COMPARISON: 10/07/2018 HISTORY: Chest pain. Short of breath. TECHNIQUE: Frontal and lateral views of the chest are obtained. FINDINGS: There is coarsening of the lung markings. There is some patchy infiltrate left lower lobe. There is slight elevated left diaphragm. There is plate fixing old left clavicle fracture. There is osteopenia. There is 50% anterior wedging of T5 and T8. There is 30% wedging of L1. There is no heart failure. IMPRESSION: There is a new predominantly interstitial infiltrate in the left lower lobe compared to recent last exam. This is consistent with acute pneumonia. No heart failure. Multiple compression fra ctures unchanged.
[2018-10-12] MEDS ORDERED: IPRATROPIUM-ALBUTEROL 3 ML NEB INHALATION STA (17:48)
[2018-10-12] MEDS ORDERED: PNEUMONIA PROTOCOL UTILIZED 1 EACH MISC PO PRN (17:48)
[2018-10-12] MEDS ORDERED: AZITHROMYCIN 500 MG in SODIUM CHLORIDE 0.9% 250 ML IVPB STA (17:48)
[2018-10-12] MEDS ORDERED: cefTRIAXone IN SWFI 1,000 MG/10 ML SYRINGE IVP STA (17:50)
[2018-10-12] MEDS ORDERED: POTASSIUM CHLORIDE ER 20 MEQ TAB.ER PO STA (21:17)
[2018-10-12] MEDS ORDERED: NITROGLYCERIN OINT 1 INCH/GM PACKET TOPICAL STA (21:17)
[2018-10-12 23:29] LABS: Glucose,Whole Blood 106 mg/dL (75-99)
[2018-10-13] MEDS: IPRATROPIUM-ALBUTEROL 3 ML NEB INHALATION PRN ×5 (00:10→19:35)
[2018-10-13 00:27] LABS: Appearance,Urine Clear (Clear); Bacteria,Urine Rare /hpf; Bilirubin,Urine Negative (Negative); Blood,Urine Trace (Negative); Color,Urine Yellow; Glucose,Urine (UA) Negative (Negative); Hyaline Casts,Urine 15 /lpf (0-2); Ketones,Urine Negative (Negative); Leukocyte Esterase,Urine Negative (Negative); Mucus,Urine Occasional /hpf; Nitrite,Urine Positive (Negative); Protein,Urine 2+ (Negative); RBC,Urine 3 /hpf (0-5); Specific Gravity,Urine 1.019 (1.001-1.035); Squamous Epithelial Cell,Urine 2 /hpf (0-4); Urobilinogen,Urine <2.0 mg/dL (<2.0); WBC,Urine 3 /hpf (0-5)
[2018-10-13 00:30] LABS: Amphetamine Screen,Urine Not Detected (NotDetected); Barbiturate Screen,Urine Not Detected (NotDetected); Benzodiazepines Screen,Urine Detected (NotDetected); Cocaine Screen,Urine Not Detected (NotDetected); Methadone Screen, Urine Not Detected (NotDetected); Opiate Screen,Urine Detected (NotDetected); Oxycodone Screen, Urine Not Detected (NotDetected); Phencyclidine Screen,Urine Not Detected (NotDetected); Tricyclic Antidepressant,Urine Not Detected (NotDetected); Urn Cannabinoid Scrn Not Detected (NotDetected)
[2018-10-13 05:40] LABS: Anisocytosis Slight; Basophils % (A) 0 %; Eosinophils % (A) 0 %; HCT 23.4 % (34.0-46.0); HGB 7.6 gm/dL (11.4-16.0); Hypochromasia Slight; Lymphocytes # (A) 0.4 k/uL (1.0-4.8); Lymphocytes % (A) 3 %; MCH 30.3 pg (25.0-35.0); MCHC 32.5 g/dL (31.0-37.0); MCV 93.4 fL (80.0-100.0); Mean Platelet Volume 7.5; Monocytes # (A) 0.7 k/uL (0-1.0); Monocytes % (A) 4 %; Neutrophils # (A) 14.3 k/uL (1.3-7.7); Neutrophils % (A) 91 %; Poikilocytosis Slight; RBC 2.51 m/uL (3.80-5.40); RDW 17.5 % (11.5-15.5); WBC 15.7 k/uL (3.8-10.6)
[2018-10-13 05:47] LABS: Platelet Count 99 k/uL (150-450)
[2018-10-13 05:57] LABS: Anion Gap 10 mmol/L; Blood Urea Nitrogen 16 mg/dL (7-17); Calcium 9.4 mg/dL (8.4-10.2); Carbon Dioxide 29 mmol/L (22-30); Chloride 100 mmol/L (98-107); Glucose 98 mg/dL (74-99); Magnesium 1.6 mg/dL (1.6-2.3); Potassium 3.8 mmol/L (3.5-5.1); Sodium 139 mmol/L (137-145)
[2018-10-13] MEDS ORDERED: Magnesium Replacement Protocol 1 EACH MISC MISCELLANE PRN (06:40)
[2018-10-13] MEDS: MAGNESIUM SULFATE-D5W PMX 1 GM in DEXTROSE/WATER 1 100ML.BAG IVPB SCH ×2 (07:15→09:36)
--- NOTE | 2018-10-13 07:23 | XR ---
EXAMINATION TYPE: XR chest 1V portable DATE OF EXAM: 10/13/2018 COMPARISON: 10/12/2018 INDICATION: Pneumonia TECHNIQUE: Single frontal view of the chest is obtained. FINDINGS: The heart size is upper limits of normal. The pulmonary vasculature is normal. There is a consolidation at the left base. Remaining portions of the lungs are clear. Old clavicular fracture repair is evident IMPRESSION: 1. Left lower lobe consolidation compatible with pneumonia. Follow-up to clearing is recommended
[2018-10-13] MEDS ORDERED: ALPRAZolam 0.5 MG TAB PO PRN (11:22)
[2018-10-13] MEDS ORDERED: DULoxetine HCL 60 MG CAPSULE.DR PO SCH (11:30)
--- NOTE | 2018-10-13 13:27 | P.CN ---
Psychiatric Consult - . Consult date: 10/13/18 Consult:: 10/13/18 09:35 altered mental state/SI Assessment and Plan (1) Altered mental state Narrative/Plan: This is a 68-year-old female history of COPD, lung cancer on home oxygen presenting for psychiatric evaluation. Patient does admit she's had some hallucinations including seeing and hearing her passed approximately one year ago. She denies any previous psychiatric history. She denies suicidal or homicidal ideation. Patient is alert and oriented to time my evaluation, she has no physical complaints. States her breathing is at baseline. No dysuria. No fever. No chest pain. No vomiting or diarrhea. Patient denies any head, EMS arrived and she was brought into the emergency department for psychiatric evaluation. - Related Data Home Medications Medication Instructions Recorded Confirmed DULoxetine HCL [Cymbalta] 60 mg PO DAILY 03/25/17 10/12/18 Metoprolol Succinate [Toprol XL] 25 mg PO DAILY 03/25/17 10/12/18 DULoxetine HCL [Cymbalta] 30 mg PO DAILY 03/06/18 10/12/18 Cholecalciferol [Vitamin D3] 1,000 unit PO DAILY 05/14/18 10/12/18 ALPRAZolam [Xanax] 0.5 mg PO BID PRN 07/25/18 10/12/18 Methimazole [Tapazole] 5 mg PO DAILY 07/25/18 10/12/18 Albuterol Sulfate [Proair Hfa] 2 puff INHALATION RT-Q4H PRN 08/31/18 10/12/18 Calcium Carbonate/Vitamin D3 1 tab PO DAILY 08/31/18 10/12/18 [Calcium 500-Vit D3 600 Tablet] Budesonide-Formot 160-4.5 Mcg 2 puff INHALATION RT-BID 09/08/18 10/12/18 [Symbicort 160-4.5 Mcg Inhaler] Aspirin EC [Ecotrin Low Dose] 81 mg PO DAILY 09/21/18 10/12/18 Docusate [Colace] 100 mg PO DAILY 09/21/18 10/12/18 Guaifenesin/Dextromethorphan 1 cap PO Q6H PRN 09/21/18 10/12/18 [Robitussin Ihisv-Dmjax-Nnqi Dm] Montelukast [Singulair] 10 mg PO DAILY 09/21/18 10/12/18 Ondansetron HCl [Zofran] 8 mg PO Q6HR PRN 09/21/18 10/12/18 Previous Rx's Medication Instructions Recorded Atorvastatin [Lipitor] 10 mg PO HS #30 tab 08/31/18 Pantoprazole [Protonix] 40 mg PO DAILY #30 tablet. 09/24/18 Allergies Allergy/AdvReac Type Severity Reaction Status Date / Time Influenza Virus Vaccines Allergy Dyspnea Verified 10/12/18 16:12 hydromorphone [From Dilaudid] AdvReac Hallucinati Verified 10/12/18 16:12 ons Past Medical History Past Medical History: Asthma, Cancer, COPD, Hyperlipidemia, Hypertension, Pneumonia, Thyroid Disorder Additional Past Medical History / Comment(s): ecent UTI-now resolved, 2015 resp arrest, on vent here FEB 2017-resp. failure-on vent. in [place] visiting brother-[facility] rehab after, O2 dependent- 3L/NC continuously, pneumonia 2010, acute trachebronchitis, chronic lt shoulder pain, DJD, bowel obstruction , donated R kidney to son, post colonoscopy with. polypectomy bleed and was in ICU, Graves disease, hx uti-ecoli 06-08-18 ,thoracic aortic anuerysm -being monitored. lung cancer pt stated due for chemo 07-26-18 and had radiation 07-17-18".pt stated they put a stent in my lung" History of Any Multi-Drug Resistant Organisms: None Reported Past Surgical History: Cholecystectomy, Hysterectomy, Orthopedic Surgery Additional Past Surgical History / Comment(s): R nephrectomy, 2011 laparotomy with lysis of adhesions from kidney surgery causing bowel obstruction. L shoulder and collar bone surgery, colonoscopy with polypectomy, cataract surg- lens implants. Past Anesthesia/Blood Transfusion Reactions: No Reported Reaction Additional Past Anesthesia/Blood Transfusion Reaction / Comment(s): Pt has never received blood. Past Psychological History: Depression Smoking Status: Former smoker Past Alcohol Use History: None Reported Past Drug Use History: None Reported - Past Family History Father Family Medical History: Cancer Additional Family Medical History / Comment(s): Pancreatic cancer and passed when he was 58 Mother Family Medical History: No Reported History Additional Family Medical History / Comment(s): None Mental Status Examination - The patient presents alert, pleasant, and cooperative. There calmly seated without any agitated behavior. [She] reports that [her] mood is good. Affect is congruent and euthymic. [She] deny having any suicidal or homicidal ideation intent or plan. [She] denies any auditory or visual hallucinations. There is no evidence of any delusional thought content. [Her] thought process is linear and goal-directed. [Her] speech is fluent and nonpressured. [Her] memory and concentration is grossly intact for the purposes of this session. Next Psychiatric impression: Major depressive disorder stabilizing current medications Psychiatric recommendations: Continue her current medications she is not a candidate for [address] [place] [address] Thank you for the consult Kenny Wetzel D.O. PhD Current Visit: Yes Status: Acute Code(s): R41.82 - ALTERED MENTAL STATUS, UNSPECIFIED SNOMED Code(s): 091867637 (2) Depression Current Visit: Yes Status: Acute Code(s): F32.9 - MAJOR DEPRESSIVE DISORDER, SINGLE EPISODE, UNSPECIFIED SNOMED Code(s): 41357868 Time with Patient: Less than 30
[2018-10-13] MEDS ORDERED: TEMAZEPAM 15 MG CAP PO PRN (14:19)
--- NOTE | 2018-10-13 14:32 | P.CNPUL ---
History of Present Illness Consult date: 10/13/18 Requesting physician: Noe Ellis Reason for consult: pneumonia Chief complaint: Shortness of breath and hallucinations History of present illness: This is a 68-year-old female with history of COPD, small cell lung cancer, previous chemo and radiation treatment, previous stent placement in the left lower lobe bronchus, history of chronic changes in the left lower lobe related to underlying malignancy, and possibly postobstructive pneumonia. Patient was brought into the hospital because she was hallucinating, apparently she was seeing and hearing her about a year ago. Patient was admitted however her chest x-ray showed left lower lobe infiltrate, and I was asked to see her on consultation. Patient is not the greatest historian, but she has been complaining of chronic shortness of breath, cough, the cough is productive with whitish phlegm. Denies any fever, no chills, no hemoptysis, no chest pain. Chest x-ray this time is more suspicious that previous x-rays for truly left lower lobe infiltrate. CBC showed leukocytosis with WBC count of 15.7 hemoglobin 7.6. A letter lites are normal renal profile was normal. Troponin was normal. Her drug screen on admission was positive for opiates and for benzodiazepines Review of Systems CONSTITUTIONAL: Denies any recent significant weight loss or weight gain. EYES: Denies change in vision. EARS, NOSE, MOUTH, THROAT: Denies headaches, denies sore throat. CARDIOVASCULAR: Denies chest pain, palpitations or syncopal episodes. RESPIRATORY: Productive cough, congestion, please refer to HPI. No hemoptysis no chest pain.. GASTROINTESTINAL: Denies change in appetite, denies abdominal pain GENITOURINARY: Denies hematuria, denies infections. MUSKULOSKELETAL: Denies pain, denies swelling. INTEGUMENTARY: Denies rash, denies eczema. NEUROLOGICAL: Recent altered mental status with hallucinations. Denies recent memory loss, no recent seizure activity. PSYCHIATRIC: Recurrent hallucinations, mostly auditory. HEMATOLOGIC/LYMPHATIC: Denies anemia, denies enlarged lymph nodes. Past Medical History Past Medical History: Asthma, Cancer, COPD, Hyperlipidemia, Hypertension, Pneumonia, Thyroid Disorder Additional Past Medical History / Comment(s): ecent UTI-now resolved, 2016 resp arrest, on vent here FEB 2017-resp. failure-on vent. in [place] visiting brother-[facility] after, O2 dependent- 2-4L/NC continuously, pneumonia 2010, acute trachebronchitis, chronic lt shoulder pain, DJD, bowel obstruction , donated R kidney to son, post colonoscopy with. polypectomy bleed and was in ICU, Graves disease, hx uti-ecoli 06-08-18 ,thoracic aortic anuerysm -being monitored. lung cancer pt stated due for chemo 07-26-18 and had radiation 07-17-18".pt stated they put a stent in my lung" History of Any Multi-Drug Resistant Organisms: None Reported Past Surgical History: Cholecystectomy, Hysterectomy, Orthopedic Surgery Additional Past Surgical History / Comment(s): R nephrectomy 1981, 2011 laparotomy with lysis of adhesions from kidney surgery causing bowel obstruction. L shoulder and collar bone surgery, colonoscopy with polypectomy, cataract surg-lens implants. Past Anesthesia/Blood Transfusion Reactions: No Reported Reaction Additional Past Anesthesia/Blood Transfusion Reaction / Comment(s): Pt has never received blood. Past Psychological History: Depression Additional Psychological History / Comment(s): Pt has an adult son navarro residing with her. Her spouse in October of 2017. no home care services recieved. She has home O2 5 liters n/c and a nebulizer that she uses and also has bsc,shower chair and walker if needed. pt stated her son drives her to [place]. Smoking Status: Former smoker Past Alcohol Use History: None Reported Additional Past Alcohol Use History / Comment(s): Pt started smoking in 1975 and quit smoking in 2011. smoked 1 ppd Past Drug Use History: None Reported Additional Drug Use History / Comment(s): Pt takes norco as prescribed by "Dr. Lopez" - Past Family History Father Family Medical History: Cancer Additional Family Medical History / Comment(s): Pancreatic cancer and passed when he was 58 Mother Family Medical History: No Reported History Additional Family Medical History / Comment(s): None Medications and Allergies Home Medications Medication Instructions Recorded Confirmed Type DULoxetine HCL [Cymbalta] 60 mg PO DAILY 03/25/17 10/12/18 History Metoprolol Succinate [Toprol XL] 25 mg PO DAILY 03/25/17 10/12/18 History DULoxetine HCL [Cymbalta] 30 mg PO DAILY 03/06/18 10/12/18 History Cholecalciferol [Vitamin D3] 1,000 unit PO DAILY 05/14/18 10/12/18 History ALPRAZolam [Xanax] 0.5 mg PO BID PRN 07/25/18 10/12/18 History Methimazole [Tapazole] 5 mg PO DAILY 07/25/18 10/12/18 History Albuterol Sulfate [Proair Hfa] 2 puff INHALATION RT-Q4H PRN 08/31/18 10/12/18 History Atorvastatin [Lipitor] 10 mg PO HS #30 tab 08/31/18 10/12/18 Rx Calcium Carbonate/Vitamin D3 1 tab PO DAILY 08/31/18 10/12/18 History [Calcium 500-Vit D3 600 Tablet] Budesonide-Formot 160-4.5 Mcg 2 puff INHALATION RT-BID 09/08/18 10/12/18 History [Symbicort 160-4.5 Mcg Inhaler] Aspirin EC [Ecotrin Low Dose] 81 mg PO DAILY 09/21/18 10/12/18 History Docusate [Colace] 100 mg PO DAILY 09/21/18 10/12/18 History Guaifenesin/Dextromethorphan 1 cap PO Q6H PRN 09/21/18 10/12/18 History [Robitussin Mdvcm-Rbvvj-Lmpd Dm] Montelukast [Singulair] 10 mg PO DAILY 09/21/18 10/12/18 History Ondansetron HCl [Zofran] 8 mg PO Q6HR PRN 09/21/18 10/12/18 History Pantoprazole [Protonix] 40 mg PO DAILY #30 tablet. 09/24/18 10/12/18 Rx Allergies Allergy/AdvReac Type Severity Reaction Status Date / Time Influenza Virus Vaccines Allergy Dyspnea Verified 10/12/18 16:12 hydromorphone [From Dilaudid] AdvReac Hallucinati Verified 10/12/18 16:12 ons Physical Exam Vitals: Vital Signs Temp Pulse Resp BP Pulse Ox 10/13/18 11:58 111 H 18 10/13/18 11:45 106 H 20 10/13/18 11:00 119/70 93 L 10/13/18 10:00 119/70 81 L 10/13/18 09:00 112 H 28 H 119/70 92 L 10/13/18 08:00 99.0 F 124 H 35 H 104/69 83 L 10/13/18 07:22 110 H 18 10/13/18 07:11 113 H 18 10/13/18 07:00 113 H 26 H 104/69 96 10/13/18 06:00 110 H 26 H 104/69 91 L 10/13/18 05:00 111 H 23 104/69 95 10/13/18 04:00 98.6 F 109 H 23 104/69 97 10/13/18 03:00 111 H 20 89 L 10/13/18 02:00 112 H 21 145/76 90 L 10/13/18 01:01 113 H 26 H 94 L 10/13/18 01:00 112 H 26 H 95 10/13/18 00:26 110 H 10/13/18 00:11 114 H 10/13/18 00:00 99.2 F 125 H 26 H 140/79 88 L 10/12/18 22:44 105 H 20 112/83 100 10/12/18 21:06 102 H 24 116/72 90 L 10/12/18 20:44 102 H 18 111/61 87 L 10/12/18 19:25 99.2 F 20 10/12/18 19:02 92 L 10/12/18 18:56 110 H 10/12/18 18:50 108 H 10/12/18 18:48 88 L 10/12/18 18:35 105 H 18 121/67 84 L 10/12/18 15:01 98.3 F 115 H 20 119/72 95 Intake and Output 10/12/18 10/13/18 10/13/18 22:59 06:59 14:59 Intake Total 500 250 Output Total 300 200 Balance 200 50 Intake: Oral 500 250 Output: Urine 300 200 Other: Voiding Method Bedside Commode Bedside Commode # Voids 2 1 Weight 58.559 kg 60.8 kg 60.8 kg GENERAL EXAM: Alert, active, comfortable in no apparent distress. On 3 L nasal cannula. HEAD: Normocephalic. EYES: Normal reaction of pupils, equal size. NOSE: Clear with pink turbinates. THROAT: No erythema or exudates. NECK: No masses, no JVD. CHEST: No chest wall deformity. LUNGS: Equal air entry with scattered rhonchi more so on the left lung base. No wheezes were noted. No chest wall tenderness. CVS: S1 and S2 normal with no audible murmur, regular rhythm. ABDOMEN: No hepatosplenomegaly, normal bowel sounds, no guarding or rigidity. SPINE: No scoliosis or deformity SKIN: No rashes CENTRAL NERVOUS SYSTEM: No focal deficits, tone is normal in all 4 extremities. EXTREMITIES: There is no peripheral edema. No clubbing, no cyanosis. Peripheral pulses are intact. Results - Laboratory Findings CBC and BMP: 10/13/18 05:23 10/13/18 05:23 Abnormal lab findings: Abnormal Labs 10/12/18 10/12/18 10/12/18 16:29 16:29 16:29 WBC 14.9 H RBC 2.76 L Hgb 8.5 L D Hct 25.3 L RDW 18.4 H Plt Count 99 L D Neutrophils # 13.7 H Lymphocytes # 0.3 L VBG pH 7.48 H VBG HCO3 32 H Potassium 3.1 L Carbon Dioxide 31 H Glucose 103 H POC Glucose (mg/dL) AST 12 L Total Protein 5.7 L Urine Protein Urine Blood Urine Nitrite Urine WBC Clumps Urine Bacteria Hyaline Casts Urine Mucus Urine Opiates Screen U Benzodiazepines Scrn 10/12/18 10/12/18 10/13/18 23:26 23:58 05:23 WBC 15.7 H RBC 2.51 L Hgb 7.6 L Hct 23.4 L RDW 17.5 H Plt Count 99 L Neutrophils # 14.3 H Lymphocytes # 0.4 L VBG pH VBG HCO3 Potassium Carbon Dioxide Glucose POC Glucose (mg/dL) 106 H AST Total Protein Urine Protein 2+ H Urine Blood Trace H Urine Nitrite Positive H Urine WBC Clumps Rare H Urine Bacteria Rare H Hyaline Casts 15 H Urine Mucus Occasional H Urine Opiates Screen Detected H U Benzodiazepines Scrn Detected H - Diagnostic Findings Chest x-ray: image reviewed (As noted in HPI, suspicious for left lower lobe in filtrate) Assessment and Plan Assessment: Impression: 1 left lower lobe pneumonia, is strongly suspected, but not certain. 2 chronic hypoxic respiratory failure secondary to COPD, small cell lung cancer, and recurrent left lower lobe pneumonia. 3 altered mental status with intermittent episodes of hallucinations, being evaluated by psychiatry. 4 history of small cell lung cancer locally advanced, status post chemoradiation treatment and stent placement. 5 chronic tobacco dependence syndrome. 6 severe underlying COPD, gold stage IV. Recommendation: Agree with the present treatment plan including antibiotics empirically, bronchodilators, steroids, agree with psychiatric consultation, GI and DVT prophylaxis, patient could be transferred out of the ICU to a regular medical floor, will continue to follow. Time with Patient: Greater than 30
[2018-10-13] MEDS: methylPREDNISolone SOD SUCCI 125 MG/2 ML VIAL IV SCH ×3 (14:39→23:57)
[2018-10-13] MEDS: PANTOPRAZOLE 40 MG TABLET PO SCH ×2 (14:42→17:12)
[2018-10-13] MEDS: ASPIRIN 81 MG PO SCH (14:42)
[2018-10-13] MEDS: HYDROcodone/APAP 10-325MG 1 EACH TAB PO PRN (14:42)
--- NOTE | 2018-10-13 17:18 | HP ---
HISTORY AND PHYSICAL DATE OF ADMISSION: 10/12/2018 DATE OF SERVICE: 10/13/2018. PRESENTING COMPLAINT: Cough, sputum, chills. HISTORY OF PRESENTING COMPLAINT: This is a 68-year-old patient whose chronic stable medical conditions include small- cell lung cancer status post radiation chemo, chronic hypoxic respiratory failure, on 4 L oxygen at home, right nephrectomy from being a donor, anxiety disorder, nontoxic, multinodular goiter, depression, chronic insomnia, diverticulosis. The patient came in with one day of increasing oral cough, yellow sputum, having chills, poor appetite, not feeling well. There was a question of if patient was hallucinating, but patient said that was a while ago and she thinks her son is getting overwhelmed with her and wants her to go to some other place. Hence, he brought her these symptoms on. The patient also oxygen requirement went up to 8 L. admitted to the ICU. Seen by Pulmonary. Patient started on antibiotics. Patient also got wheezing. REVIEW OF SYSTEMS: CONSTITUTIONAL: [place] hot, cold, chills, tired, decreased appetite. HEENT: None. RESPIRATORY as above. CARDIOVASCULAR: None. GASTROINTESTINAL: None. GENITOURINARY: None. MUSCULOSKELETAL: Pain in the joints. DERMATOLOGICAL: None. HEMATOLOGICAL: None. LYMPHATICS: None. PSYCHIATRIC: Questionable hallucinations. NEUROLOGICAL: None. PAST MEDICAL HISTORY: COPD, small cell lung cancer treated with chemo and radiation. Home oxygen now 4 L, right nephrectomy was a donor, compression fracture of thoracic vertebra, anxiety disorder, nontoxic, multinodular goiter. Depression, thoracic aneurysm 4.8 cm, chronic insomnia, hard of hearing. Colonic diverticulosis, bilateral tinnitus. Hyperlipidemia. Hypertension. PAST SURGICAL HISTORY: Cholecystectomy, hysterectomy, right nephrectomy, lysis of adhesions from kidney surgery causing bowel obstruction. Shoulder collarbone surgery, cataract surgery. PSYCH HISTORY: Depression. SOCIAL HISTORY: The patient's son Dane is living with her. The patient is a . The patient smoked for 38 years, stopped in 2012, smoked about half a pack a day. No alcohol. FAMILY HISTORY: Of pancreatic cancer. HOME MEDICATIONS: Home medications: 1. Protonix 40 mg a day. 2. Zofran 8 mg q.6h p.r.n. 3. Singulair 10 mg p.o. daily. 4. Toprol-XL 25 mg a day. 5. Tapazole 5 mg p.o. daily. 6. Robitussin 1 capsule p.o. q.6 p.r.n. 7. Colace 100 mg p.o. daily. 8. Cymbalta 90 mg a day. 9. Vitamin D3 1000 units p.o. daily. 10.Calcium vitamin D3 one tablet p.o. daily. 11.Symbicort 160/4.5, 2 puffs b.i.d. 12.Lipitor 10 mg q.h.s. 13.Aspirin 81 mg p.o. daily. 14.ProAir 2 puffs q.4 p.r.n. 15.Xanax 0.5 p.o. b.i.d. p.r.n. ALLERGIES: INFLUENZA VACCINE, DILAUDID. PHYSICAL EXAMINATION: VITAL SIGNS: On examination temperature 98.3, pulse 115, respiration 20, blood pressure 109/72, pulse ox 84 percent on room air. GENERAL APPEARANCE: Average build, lying in bed, tired-appearing. EYES: Pupils equal. Conjunctivae normal. HEENT: External appearance of nose and ears normal. Oral cavity normal. NECK: JVD not raised. Mass not palpable. RESPIRATORY: Effort increased. LUNGS: Decreased breath sounds, some wheezing, some right basal crackles. CARDIOVASCULAR: 1st and 2nd sounds normal. No edema. ABDOMEN: Soft, nontender. Liver and spleen not palpable. LYMPHATICS: No lymph nodes palpable in the neck and axilla. PSYCHIATRY: Alert and oriented x3. Mood and affect slightly anxious-appearing. NEUROLOGICAL: Pupils equal. Cranial nerves grossly intact. Power and sensation grossly intact. There is no hallucinations currently reported. INVESTIGATIONS: White count 14.9, hemoglobin 8.5, platelets 99. Potassium 3.1, BUN 15, creatinine 0.80. Chest x-ray film personally reviewed by me shows left-sided infiltrate. ASSESSMENT: 1. Left lower lobe pneumonia suspect gram-negative organism. 2. Chronic obstructive pulmonary disease exacerbation in an ex-smoker. 3. Acute on chronic hypoxic respiratory failure due to pneumonia. The patient is currently on 8 L oxygen. 4. Small size small cell type lung cancer status post chemo and radiation treatment. 5. 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 6. Chronic compression fracture of thoracic vertebra. 7. Anxiety disorder not otherwise specified. 8. Nontoxic multinodular goiter. 9. Depression, not otherwise specified. 10.Thoracic aortic aneurysm, 4.8 cm. 11.Chronic insomnia. 12.Chronically hard of hearing. 13.Colonic diverticulosis. 14.Chronic bilateral tinnitus. 15.Hyperlipidemia. 16.Essential hypertension. PLAN: Patient is admitted to the ICU. The patient is on IV ceftriaxone and Zithromax. Home medications are resumed, including patient is on IV Solu-Medrol. Accu-Cheks will be followed. Care was discussed with the patient. Questions were answered. Because of concern of hallucinations, psychiatry was consulted. Care was discussed with the patient. Questions answered. Copy to Dr. Lopez. MMGINAL / IJN: [id number] /
[2018-10-13] MEDS: MONTELUKAST 10 MG TAB PO SCH (17:56)
[2018-10-13] MEDS: METOPROLOL SUCCINATE (ER) 25 MG TAB.ER.24H PO SCH (17:59)
[2018-10-13] MEDS: METHIMAZOLE 5 MG TAB PO SCH (18:00)
[2018-10-13] MEDS: DULoxetine HCL 30 MG CAPSULE.DR PO SCH (18:00)
[2018-10-13] MEDS: AZITHROMYCIN 500 MG TAB PO SCH (18:00)
[2018-10-13] MEDS: SYMBICORT 160-4.5 MCG INHALER INHALATION SCH (19:35)
[2018-10-13] MEDS ORDERED: SYMBICORT 160-4.5 MCG INHALER INHALATION SCH (20:00)
[2018-10-13] MEDS: ATORVASTATIN 10 MG TAB PO SCH (21:40)
[2018-10-14 07:03] LABS: Anisocytosis Slight; Basophils # (A) 0.1 k/uL (0-0.2); Basophils % (A) 1 %; Eosinophils % (A) 0 %; HCT 24.1 % (34.0-46.0); HGB 7.7 gm/dL (11.4-16.0); Hypochromasia Slight; Lymphocytes # (A) 0.1 k/uL (1.0-4.8); Lymphocytes % (A) 1 %; MCHC 32.1 g/dL (31.0-37.0); MCV 93.3 fL (80.0-100.0); Monocytes # (A) 0.4 k/uL (0-1.0); Monocytes % (A) 4 %; Neutrophils # (A) 10.2 k/uL (1.3-7.7); Neutrophils % (A) 94 %; Platelet Count 111 k/uL (150-450); Poikilocytosis Slight; RBC 2.59 m/uL (3.80-5.40); RDW 17.5 % (11.5-15.5); WBC 10.9 k/uL (3.8-10.6)
[2018-10-14] MEDS: PANTOPRAZOLE 40 MG TABLET PO SCH ×2 (07:50→17:31)
[2018-10-14] MEDS: HYDROcodone/APAP 10-325MG 1 EACH TAB PO PRN ×2 (10:36→18:59)
[2018-10-14] MEDS: amLODIPine 10 MG TAB PO SCH (10:36)
[2018-10-14] MEDS: MONTELUKAST 10 MG TAB PO SCH (10:37)
[2018-10-14] MEDS: methylPREDNISolone SOD SUCCI 125 MG/2 ML VIAL IV SCH ×2 (10:37→17:31)
[2018-10-14] MEDS: ASPIRIN 81 MG PO SCH (10:37)
[2018-10-14] MEDS: DULoxetine HCL 30 MG CAPSULE.DR PO SCH (10:37)
[2018-10-14] MEDS: METOPROLOL SUCCINATE (ER) 25 MG TAB.ER.24H PO SCH (10:37)
[2018-10-14] MEDS: METHIMAZOLE 5 MG TAB PO SCH (10:38)
--- NOTE | 2018-10-14 10:49 | P.PN ---
Subjective Progress Note Date: 10/14/18 Principal diagnosis: acute community-acquired left lower lobe pneumonia This is a 68-year-old female with history of COPD, small cell lung cancer, previous chemo and radiation treatment, previous stent placement in the left lower lobe bronchus, history of chronic changes in the left lower lobe related to underlying malignancy, and possibly postobstructive pneumonia. Patient was brought into the hospital because she was hallucinating, apparently she was seeing and hearing her about a year ago. Patient was admitted however her chest x-ray showed left lower lobe infiltrate, and I was asked to see her on consultation. Patient is not the greatest historian, but she has been complaining of chronic shortness of breath, cough, the cough is productive with whitish phlegm. Denies any fever, no chills, no hemoptysis, no chest pain. Chest x-ray this time is more suspicious that previous x-rays for truly left lower lobe infiltrate. CBC showed leukocytosis with WBC count of 15.7 hemoglobin 7.6. A letter lites are normal renal profile was normal. Tro ponin was normal. Her drug screen on admission was positive for opiates and for benzodiazepines Patient was reevaluated today on 10/14/2018, feeling better, breathing easier, denies any hallucinations.labs showed WBC count down to 10.9 hemoglobin is 7.7 and electrolytes are normal renal profile is normal.patient feels better breathing easier, continues to cough, occasional wheezing, cough is productive with yellow phlegm. Objective - Vital Signs Vital signs: Vital Signs Temp 97.5 F L 10/14/18 04:00 Pulse 92 10/14/18 04:00 Resp 13 10/14/18 04:00 BP 143/88 10/14/18 04:00 Pulse Ox 98 10/14/18 04:00 Intake & Output 10/13/18 10/14/18 10/14/18 18:59 06:59 18:59 Intake Total 970 240 Output Total 1000 300 Balance -30 -60 Weight 60.8 kg 60.6 kg Intake: IV 240 0.9 KVO 240 Oral 970 Output: Urine 1000 300 Other: Voiding Method Bedside Commode Bedside Commode # Voids 2 - Exam GENERAL EXAM: Alert, active, comfortable in no apparent distress. HEENT: PERRLA, EOMI, moist mucous membranes, neck is supple, no JVD, no stridor, no thyromegaly. CHEST: No chest wall deformity. LUNGS: minimal fine crackles at the left base, symmetrical chest expansion, no chest wall tenderness. Right side is clear. CVS: S1 and S2 normal with no audible murmur, regular rhythm. ABDOMEN: No hepatosplenomegaly, normal bowel sounds, no guarding or rigidity. SPINE: No scoliosis or deformity SKIN: No rashes CENTRAL NERVOUS SYSTEM: No focal deficits, tone is normal in all 4 extremities. EXTREMITIES: There is no peripheral edema. No clubbing, no cyanosis. Peripheral pulses are intact. - Labs CBC & Chem 7: 10/14/18 05:40 10/13/18 05:23 Labs: Abnormal Lab Results - Last 24 Hours (Table) 10/14/18 Range/Units 05:40 WBC 10.9 H (3.8-10.6) k/uL RBC 2.59 L (3.80-5.40) m/uL Hgb 7.7 L (11.4-16.0) gm/dL Hct 24.1 L (34.0-46.0) % RDW 17.5 H (11.5-15.5) % Plt Count 111 L (150-450) k/uL Neutrophils # 10.2 H (1.3-7.7) k/uL Lymphocytes # 0.1 L (1.0-4.8) k/uL Microbiology - Last 24 Hours (Table) 10/13/18 16:10 Gram Stain - Preliminary Sputum Sputum Culture - Preliminary 10/12/18 18:50 Blood Culture - Preliminary Blood No Growth after 24 hours 10/12/18 23:58 Urine Culture - Preliminary Urine,Voided Assessment and Plan Assessment: Impression: 1 left lower lobe pneumonia, is strongly suspected, consistent with community- acquired pneumonia.Improving with antibiotics at present 2 chronic hypoxic respiratory failure secondary to COPD, small cell lung cancer, and recurrent left lower lobe pneumonia. 3 altered mental status with intermittent episodes of hallucinations, being evaluated by psychiatry. 4 history of small cell lung cancer locally advanced, status post chemoradiation treatment and stent placement. 5 chronic tobacco dependence syndrome. 6 severe underlying COPD, gold stage IV. Recommendation: continue antibiotics, bronchodilators, steroids, we'll transfer the patient to a regular medical floor once a bed becomes available, repeat chest x-ray on Tuesday, consider discharge planning in the next 2 days. We'll continue to follow closely. Time with Patient: Less than 30
[2018-10-14] MEDS: IPRATROPIUM-ALBUTEROL 3 ML NEB INHALATION PRN ×2 (11:04→19:47)
[2018-10-14] MEDS: SYMBICORT 160-4.5 MCG INHALER INHALATION SCH ×2 (11:04→19:47)
[2018-10-14] MEDS: ALBUTEROL NEBULIZED 2.5 MG/3 ML INHALATION PRN (15:57)
[2018-10-14] MEDS: AZITHROMYCIN 500 MG TAB PO SCH (17:31)
[2018-10-14] MEDS: ATORVASTATIN 10 MG TAB PO SCH (21:40)
[2018-10-15] MEDS: methylPREDNISolone SOD SUCCI 125 MG/2 ML VIAL IV SCH ×2 (00:13→09:54)
--- NOTE | 2018-10-15 01:04 | PN ---
PROGRESS NOTE DATE OF SERVICE: 10/14/2018 PRESENTING COMPLAINT: Cough with sputum. INTERVAL HISTORY: Patient with pneumonia feels a bit better. Fevers down. Appetite is getting better. More perky. Sitting up. Son is visiting. REVIEW OF SYSTEMS: Done for constitutional, cardiovascular, GI, pulmonary; and relevant findings as above. CURRENT MEDICATIONS: Reviewed that include azithromycin and IV ceftriaxone. PHYSICAL EXAMINATION: VITAL SIGNS: Temperature 97.7, pulse 104, respirations 20, blood pressure 122/63, pulse ox noted. GENERAL APPEARANCE: More awake, sitting up. EYES: Pupils are equal. Conjunctivae normal. NECK: JVD not raised. Mass not palpable. RESPIRATORY: Effort increased. LUNGS: Diminished breath sounds. Decreased wheezing. CARDIOVASCULAR: First and second sounds normal. No edema. ABDOMEN: Soft, nontender. Liver and spleen not palpable. PSYCHIATRY: Alert and oriented x3. Mood and affect less anxious-appearing. INVESTIGATIONS: White count 10.9, hemoglobin 7.7, platelets 111. ASSESSMENT: 1. Left lobe pneumonia suspect gram-negative organism with clinical response. 2. Chronic obstructive pulmonary disease in an ex-smoker. 3. Acute on chronic hypoxic respiratory failure due to pneumonia. Oxygen requirement coming down. 4. Small cell type lung cancer status post chemo and radiation. 5. 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 6. Chronic compression fracture of thoracic vertebra. 7. Anxiety disorder not otherwise specified. 8. Nontoxic multinodular goiter. 9. Depression, not otherwise specified. 10.Thoracic aortic aneurysm 4.8 cm. 11.Chronic insomnia. 12.Chronic hard of hearing. 13.Chronic diverticulosis. 14.Chronic bilateral tinnitus. 15.Hyperlipidemia. 16.Essential hypertension. PLAN: Patient doing better. Continue current medication and treatment plan. Care was discussed with the patient. Encouraged to be out of bed. Will get PT/OT. MMODL / IJN: [id number] /
--- NOTE | 2018-10-15 08:46 | P.PN ---
Subjective Progress Note Date: 10/15/18 Principal diagnosis: Acute community acquired left lower lobe pneumonia This is a 68-year-old female with history of COPD, small cell lung cancer, previous chemo and radiation treatment, previous stent placement in the left lower lobe bronchus, history of chronic changes in the left lower lobe related to underlying malignancy, and possibly postobstructive pneumonia. Patient was brought into the hospital because she was hallucinating, apparently she was seeing and hearing her about a year ago. Patient was admitted however her chest x-ray showed left lower lobe infiltrate, and I was asked to see her on consultation. Patient is not the greatest historian, but she has been complaining of chronic shortness of breath, cough, the cough is productive with whitish phlegm. Denies any fever, no chills, no hemoptysis, no chest pain. Chest x-ray this time is more suspicious that previous x-rays for truly left lower lobe infiltrate. CBC showed leukocytosis with WBC count of 15.7 hemoglobin 7.6. A letter lites are normal renal profile was normal. Trop onin was normal. Her drug screen on admission was positive for opiates and for benzodiazepines Patient was reevaluated today on 10/14/2018, feeling better, breathing easier, denies any hallucinations.labs showed WBC count down to 10.9 hemoglobin is 7.7 and electrolytes are normal renal profile is normal.patient feels better breathing easier, continues to cough, occasional wheezing, cough is productive with yellow phlegm. On 10/15/2018 patient seen in follow-up on medical surgical floor. She is resting comfortably in bed, in no acute distress, she states her breathing is improving, there is less sputum production, she is still producing yellow colored sputum, but it has significantly improved since admission. No signs of delirium or hallucinations. She is on 4 L of oxygen with a pulse ox of 98%, lung sounds are clear, she is afebrile, remains generally weak. Blood and urine cultures are negative, sputum culture is pending. No new blood work today, no new chest x-rays. Clinically she is improving, vital signs are stable, no acute events overnight. Objective - Vital Signs Vital signs: Vital Signs Temp 98.6 F 10/15/18 07:57 Pulse 106 H 10/15/18 07:57 Resp 12 10/15/18 07:57 BP 113/64 10/15/18 07:57 Pulse Ox 98 10/15/18 07:57 Intake & Output 10/14/18 10/15/18 10/15/18 18:59 06:59 18:59 Intake Total 660 100 Output Total 500 Balance 160 100 Weight 65.5 kg Intake: IV 160 0.9 KVO 160 Oral 500 100 Output: Urine 500 Other: Voiding Method Bedside Commode Toilet # Voids 1 - Exam GENERAL EXAM: Alert, pale frail-looking 68-year-old white female, resting quietly in bed, on 4 L of oxygen comfortable in no apparent distress. HEAD: Normocephalic/atraumatic. EYES: Normal reaction of pupils, equal size. Conjunctiva pink, sclera white. NOSE: Clear with pink turbinates. THROAT: No erythema or exudates. NECK: No masses, no JVD, no thyroid enlargement, no adenopathy. CHEST: No chest wall deformity. Symmetrical expansion. LUNGS: Equal air entry with no crackles, wheeze, rhonchi or dullness. CVS: Regular rate and rhythm, normal S1 and S2, no gallops, no murmurs, no rubs ABDOMEN: Soft, nontender. No hepatosplenomegaly, normal bowel sounds, no guarding or rigidity. EXTREMITIES: No clubbing, no edema, no cyanosis, 2+ pulses and upper and lower extremities. MUSCULOSKELETAL: Muscle strength and tone normal. SPINE: No scoliosis or deformity SKIN: No rashes CENTRAL NERVOUS SYSTEM: Alert and oriented -3. No focal deficits, tone is normal in all 4 extremities. PSYCHIATRIC: Alert and oriented -3. Appropriate affect. Intact judgment and insight. - Labs CBC & Chem 7: 10/14/18 05:40 10/13/18 05:23 Labs: Microbiology - Last 24 Hours (Table) 10/12/18 18:50 Blood Culture - Preliminary Blood No Growth after 48 hours 10/12/18 23:58 Urine Culture - Final Urine,Voided Assessment and Plan Plan: Assessment: 1 left lower lobe pneumonia, is strongly suspected, consistent with community- acquired pneumonia.Improving with antibiotics at present 2 chronic hypoxic respiratory failure secondary to COPD, small cell lung cancer, and recurrent left lower lobe pneumonia. 3 altered mental status with intermittent episodes of hallucinations, being evaluated by psychiatry. 4 history of small cell lung cancer locally advanced, status post chemoradiation treatment and stent placement. 5 chronic tobacco dependence syndrome. 6 severe underlying COPD, gold stage IV. Plan: Continue current antibiotic coverage, with the results of the sputum culture, cl inically patient is improving, breathing easier, less congested, less sputum production. Vital signs are stable, we'll taper the Solu-Medrol to 40 mg every 8 hours. Anticipate further improvement, and possible discharge in next 24 hours. I performed a history & physical examination of the patient and discussed their management with my nurse practitioner, Cher Allen. I reviewed the nurse pr actitioner's note and agree with the documented findings and plan of care. Lung sounds are positive for clear lung sounds. The findings and the impression was discussed with the patient. I attest to the documentation by the nurse practitioner. Time with Patient: Less than 30
[2018-10-15] MEDS: SYMBICORT 160-4.5 MCG INHALER INHALATION SCH ×2 (09:04→21:24)
[2018-10-15] MEDS: IPRATROPIUM-ALBUTEROL 3 ML NEB INHALATION PRN ×3 (09:04→16:43)
[2018-10-15] MEDS ORDERED: MAGNESIUM HYDROXIDE 2,400 MG/10 ML CUP PO PRN (09:30)
[2018-10-15] MEDS: DULoxetine HCL 30 MG CAPSULE.DR PO SCH (09:55)
[2018-10-15] MEDS: ASPIRIN 81 MG PO SCH (09:55)
[2018-10-15] MEDS: METOPROLOL SUCCINATE (ER) 25 MG TAB.ER.24H PO SCH (09:55)
[2018-10-15] MEDS: MONTELUKAST 10 MG TAB PO SCH (09:55)
[2018-10-15] MEDS: amLODIPine 10 MG TAB PO SCH (09:55)
[2018-10-15] MEDS: METHIMAZOLE 5 MG TAB PO SCH (09:56)
[2018-10-15] MEDS: PANTOPRAZOLE 40 MG TABLET PO SCH ×2 (09:56→17:38)
[2018-10-15] MEDS: HYDROcodone/APAP 10-325MG 1 EACH TAB PO PRN (10:13)
[2018-10-15] MEDS: methylPREDNISolone SOD SUCCI 40 MG/ML 1 ML VIAL IV SCH ×2 (17:38→23:57)
[2018-10-15] MEDS: AZITHROMYCIN 500 MG TAB PO SCH (18:48)
[2018-10-15] MEDS: ATORVASTATIN 10 MG TAB PO SCH (20:18)
[2018-10-15 21:04] LABS: Glucose,Whole Blood 314 mg/dL (75-99)
[2018-10-15] MEDS: INSULIN ASPART (NovoLOG) 100 UNIT/ML VIAL SQ SCH (21:12)
--- NOTE | 2018-10-16 04:26 | PN ---
PROGRESS NOTE DATE OF SERVICE: 10/15/2018 PRESENTING COMPLAINT: Short of breath. INTERVAL HISTORY: Patient presented with pneumonia. Doing much better. Sputum is gone. P.o. is down. Appetite is much better. Did work with physical therapy. Tolerating a diet. REVIEW OF SYSTEMS: Done for constitutional, cardiovascular, GI, pulmonary and relevant findings as above. CURRENT MEDICATIONS: Reviewed that include IV ceftriaxone and Zithromax. PHYSICAL EXAMINATION: VITAL SIGNS: Temperature 98, pulse 100, respirations 12, blood pressure 102/65, pulse ox 97% on 4 L. GENERAL APPEARANCE: Sitting at edge of bed, more comfortable. EYES: Pupils equal. Conjunctivae normal. NECK: JVD not raised. Mass not palpable. RESPIRATORY: Effort increased. LUNGS: Decreased breath sounds. CARDIOVASCULAR: First and second sounds, no edema. ABDOMEN: Soft, nontender. Liver and spleen not palpable. PSYCHIATRY: Alert and oriented x3. Mood and affect slightly anxious. INVESTIGATIONS: Accu-Cheks are noted. ASSESSMENT: 1. Left lower lobe pneumonia, suspect gram-negative organism with much improvement. 2. Chronic obstructive pulmonary disease in an ex-smoker. 3. Acute on chronic hypoxic respiratory failure due to pneumonia, doing better. 4. Small cell type lung cancer status post chemo and radiation. 5. 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 6. Chronic compression fracture of thoracic vertebra. 7. Anxiety disorder, not otherwise specified. 8. Nontoxic multinodular goiter. 9. Depression, not otherwise specified. 10.Thoracic aortic aneurysm 4.8 cm. 11.Chronic insomnia. 12.Chronically hard of hearing. 13.Colonic diverticulosis asymptomatic. 14.Chronic bilateral tinnitus. 15.Hyperlipidemia. 16.Essential hypertension. PLAN: Care was discussed with the patient's son at the bedside. The patient wishes to go to the ECF. PT/OT is working. We will await further evaluation by housing case manager/social work msw to see if patient can go home or to the ECF, can be switched over to oral steroids. MMODL / IJN: [id number] /
[2018-10-16 07:00] LABS: Glucose,Whole Blood 175 mg/dL (75-99)
[2018-10-16] MEDS: INSULIN ASPART (NovoLOG) 100 UNIT/ML VIAL SQ SCH ×3 (07:30→18:39)
[2018-10-16] MEDS: METOPROLOL SUCCINATE (ER) 25 MG TAB.ER.24H PO SCH (07:44)
[2018-10-16] MEDS: ASPIRIN 81 MG PO SCH (07:44)
[2018-10-16] MEDS: methylPREDNISolone SOD SUCCI 40 MG/ML 1 ML VIAL IV SCH (07:45)
[2018-10-16] MEDS: amLODIPine 10 MG TAB PO SCH (07:45)
[2018-10-16] MEDS: DULoxetine HCL 30 MG CAPSULE.DR PO SCH (07:45)
[2018-10-16] MEDS: MONTELUKAST 10 MG TAB PO SCH (07:45)
[2018-10-16] MEDS: PANTOPRAZOLE 40 MG TABLET PO SCH ×2 (07:45→18:39)
[2018-10-16] MEDS: METHIMAZOLE 5 MG TAB PO SCH (07:46)
[2018-10-16] MEDS: ALBUTEROL NEBULIZED 2.5 MG/3 ML INHALATION PRN (08:17)
[2018-10-16] MEDS: SYMBICORT 160-4.5 MCG INHALER INHALATION SCH (08:18)
[2018-10-16] MEDS: IPRATROPIUM-ALBUTEROL 3 ML NEB INHALATION PRN ×2 (11:21→15:22)
[2018-10-16 11:27] LABS: Glucose,Whole Blood 182 mg/dL (75-99)
[2018-10-16] MEDS: HYDROcodone/APAP 10-325MG 1 EACH TAB PO PRN (11:40)
[2018-10-16 13:09] VITALS: BMI 24.7
--- NOTE | 2018-10-16 13:12 | P.PN ---
Subjective Progress Note Date: 10/16/18 Principal diagnosis: Acute community acquired left lower lobe pneumonia This is a 68-year-old female with history of COPD, small cell lung cancer, previous chemo and radiation treatment, previous stent placement in the left lower lobe bronchus, history of chronic changes in the left lower lobe related to underlying malignancy, and possibly postobstructive pneumonia. Patient was brought into the hospital because she was hallucinating, apparently she was seeing and hearing her about a year ago. Patient was admitted however her chest x-ray showed left lower lobe infiltrate, and I was asked to see her on consultation. Patient is not the greatest historian, but she has been complaining of chronic shortness of breath, cough, the cough is productive with whitish phlegm. Denies any fever, no chills, no hemoptysis, no chest pain. Chest x-ray this time is more suspicious that previous x-rays for truly left lower lobe infiltrate. CBC showed leukocytosis with WBC count of 15.7 hemoglobin 7.6. A letter lites are normal renal profile was normal. Trop onin was normal. Her drug screen on admission was positive for opiates and for benzodiazepines Patient was reevaluated today on 10/14/2018, feeling better, breathing easier, denies any hallucinations.labs showed WBC count down to 10.9 hemoglobin is 7.7 and electrolytes are normal renal profile is normal.patient feels better breathing easier, continues to cough, occasional wheezing, cough is productive with yellow phlegm. On 10/15/2018 patient seen in follow-up on medical surgical floor. She is resting comfortably in bed, in no acute distress, she states her breathing is improving, there is less sputum production, she is still producing yellow colored sputum, but it has significantly improved since admission. No signs of delirium or hallucinations. She is on 4 L of oxygen with a pulse ox of 98%, lung sounds are clear, she is afebrile, remains generally weak. Blood and urine cultures are negative, sputum culture is pending. No new blood work today, no new chest x-rays. Clinically she is improving, vital signs are stable, no acute events overnight. On 10/16/2018 patient seen in follow-up on medical surgical floor. She is awake and alert, in no acute distress, she continues to improve, lung sounds are clear, no rhonchi, no wheezing or rales, vital signs are stable, no fever or chills. She is on 4 L of oxygen pulse ox 100%. No altered mentation. All cultures remain negative thus far. No complaints of chest pain, no cough or congestion. No hemoptysis. Objective - Vital Signs Vital signs: Vital Signs Temp 97.5 F L 10/16/18 07:15 Pulse 100 10/16/18 11:30 Resp 16 10/16/18 07:38 BP 137/91 10/16/18 07:15 Pulse Ox 100 10/16/18 07:15 Intake & Output 10/15/18 10/16/18 10/16/18 18:59 06:59 18:59 Intake Total 240 480 Balance 240 480 Weight 63.5 kg Intake: Oral 240 480 Other: Voiding Method Toilet Diaper # Voids 1 # Bowel Movements 1 - Exam GENERAL EXAM: Alert, pale frail-looking 68-year-old white female, resting quietly in bed, on 4 L of oxygen comfortable in no apparent distress. HEAD: Normocephalic/atraumatic. EYES: Normal reaction of pupils, equal size. Conjunctiva pink, sclera white. NOSE: Clear with pink turbinates. THROAT: No erythema or exudates. NECK: No masses, no JVD, no thyroid enlargement, no adenopathy. CHEST: No chest wall deformity. Symmetrical expansion. LUNGS: Equal air entry with no crackles, wheeze, rhonchi or dullness. CVS: Regular rate and rhythm, normal S1 and S2, no gallops, no murmurs, no rubs ABDOMEN: Soft, nontender. No hepatosplenomegaly, normal bowel sounds, no guarding or rigidity. EXTREMITIES: No clubbing, no edema, no cyanosis, 2+ pulses and upper and lower extremities. MUSCULOSKELETAL: Muscle strength and tone normal. SPINE: No scoliosis or deformity SKIN: No rashes CENTRAL NERVOUS SYSTEM: Alert and oriented -3. No focal deficits, tone is normal in all 4 extremities. PSYCHIATRIC: Alert and oriented -3. Appropriate affect. Intact judgment and insight. - Labs CBC & Chem 7: 10/14/18 05:40 10/13/18 05:23 Labs: Abnormal Lab Results - Last 24 Hours (Table) 10/15/18 10/16/18 10/16/18 Range/Units 20:53 06:58 11:25 POC Glucose (mg/dL) 314 H 175 H 182 H (75-99) mg/dL Microbiology - Last 24 Hours (Table) 10/12/18 18:50 Blood Culture - Preliminary Blood No Growth after 72 hours 10/13/18 16:10 Gram Stain - Final Sputum Sputum Culture - Final Assessment and Plan Plan: Assessment: 1 left lower lobe pneumonia, is strongly suspected, consistent with community- acquired pneumonia.Improving with antibiotics at present 2 chronic hypoxic respiratory failure secondary to COPD, small cell lung cancer, and recurrent left lower lobe pneumonia. 3 altered mental status with intermittent episodes of hallucinations, being evaluated by psychiatry. 4 history of small cell lung cancer locally advanced, status post chemoradiation treatment and stent placement. 5 chronic tobacco dependence syndrome. 6 severe underlying COPD, gold stage IV. Plan: She continues to improve, vital signs are stable, no cough or chest congestion, no altered mentation, less dyspneic, no acute events overnight, cultures are negative. From pulmonary perspective patient is stable for discharge home today, and follow up with Dr. Sánchez in the office in 7-10 days. I performed a history & physical examination of the patient and discussed their management with my nurse practitioner, Cher Allen. I reviewed the nurse practitioner's note and agree with the documented findings and plan of care. Lung sounds are positive for clear lung sounds. The findings and the impression was discussed with the patient. I attest to the documentation by the nurse practitioner. Time with Patient: Less than 30
[2018-10-16] MEDS ORDERED: predniSONE 20 MG TAB PO SCH (14:15)
[2018-10-16 16:00] VITALS: BP 148/81; PULSE 98; RESP 17; TEMP 97.7
[2018-10-16 17:02] LABS: Glucose,Whole Blood 227 mg/dL (75-99)
[2018-10-16] MEDS: AZITHROMYCIN 500 MG TAB PO SCH (18:39)
--- NOTE | 2018-10-17 06:27 | DS ---
DISCHARGE SUMMARY DATE OF ADMISSION: 10/12/2018 DATE OF DISCHARGE: 10/16/2018 FINAL DIAGNOSES: 1. Left lower lobe pneumonia suspect gram-negative organism, POA. 2. Chronic obstructive pulmonary disease in an ex-smoker. 3. Acute on chronic hypoxic respiratory failure due to pneumonia. 4. Small cell type lung cancer, status post chemo and radiation treatment. 5. Right nephrectomy from patient being a kidney donor. 6. Chronic compression fracture of thoracic vertebra. 7. Anxiety disorder, not otherwise specified. 8. Nontoxic multinodular goiter. 9. Depression, not otherwise specified. 10.Thoracic aortic aneurysm 4.8 cm. 11.Chronic insomnia. 12.Chronically hard of hearing. 13.Chronic diverticulosis, asymptomatic. 14.Chronic bilateral tinnitus. 15.Hyperlipidemia. 16.Essential hypertension. HOSPITAL COURSE: This patient presented with hypoxia, pneumonia, treated with antibiotics to which she responded rather well. The patient's blood cultures were negative. Sputum cultures were unremarkable. The patient is doing much better by the time of discharge. On examination, temperature 97.7, pulse 98, respirations 17, blood pressure 148/81, pulse ox 94% on 2 L. LUNGS: Improved air entry. PSYCH: AO x3. INVESTIGATIONS: Accu-Cheks noted. White count 10.9, hemoglobin 7.7. BUN and creatinine normal. CONSULTATION: Dr. Caal from Pulmonary; Dr. Wetzel from Psychiatry. DISCHARGE MEDICATIONS: 1. Cymbalta 60 mg p.o. daily. 2. Toprol XL 25 mg daily. 3. Cymbalta 30 mg p.o. daily. 4. Vitamin D3, 1000 units p.o. daily. 5. Xanax 0.5 mg p.o. b.i.d. p.r.n. 6. Tapazole 5 mg p.o. daily. 7. ProAir 2 puffs q.4 p.r.n. 8. Lipitor 10 mg q.h.s. 9. Calcium 500 vitamin D3 one tablet p.o. daily. 10.Symbicort 160/4.5 two puffs b.i.d. 11.Aspirin 81 mg daily. 12.Singulair 10 mg p.o. daily. 13.Zofran 8 mg q.6 p.r.n. 14.Protonix 40 mg daily. 15.Ceftin 500 mg p.o. b.i.d. for 3 days. 16.Atrovent HFA 2 puffs q.i.d. 17.Norvasc 10 mg p.o. daily. 18.Prednisone taper. Follow up with Dr. Lopez on 10/25/2018; Dr. Sánchez on 11/07/2018. Home oxygen to continue. MMODL / IJN: [id number] /
--- NOTE | 2018-10-18 11:37 | CDI ---
Documentation Clarification Form Date: 10/18/18 From: Medina Hernandez Phone: If you have a question regarding this query, please contact Maddy Andrade at [phone] between 8am and 5pm. Admit Date: 10/12/2018 5:48:00 PM Patient Name: Keri Kern Visit Number: [id number] Discharge Date: 10/16/2018 7:47:00 PM ATTENTION: The Clinical Documentation Specialists (CDI) and [facility] Coding Staff appreciate your assistance in clarifying documentation. Please respond to the clarification below the line at the bottom and electronically sign. The CDI & [facility] Coding staff will review the response and follow-up if needed. Please note: Queries are made part of the Legal Health Record. If you have any questions, please contact the author of this message via ITS. Dr. Noe Ellis Altered Mental Status with intermittent episodes of hallucinations was documented in the pulmonary consult and pulmonary progress notes. In the H&P documentation, per the patient, the symptoms were awhile before day of admission and the son is giving these symptoms because he is overwhelmed with her and wants her to go some other place. History/Risk Factors: Patient admitted for COPD exacerbation, gram negative pneumonia and acute on chronic respiratory failure with hypoxia. Clinical Indicators: Hallucinations Labs: WBC 14.9, neutrophils 13.7, potassium 3.1, carbon dioxide 31, glucose 103 X Ray: New interstitial infiltrate in the left lower lobe. Psych Consult: Altered mental status and depression. Treatment: Psych recommended to continue current meds. Patient is on Cymbalta and Restoril In your professional opinion, please clarify the etiology of the Altered Mental Status, if known. Delirium (specify cause): Dementia (if know, specify Type and if with/without Behavioral Disturbance) Encephalopathy (specify Type and Underlying Medical Illness) Other condition (please specify) Unable to determine per patient and my assessment - no altered mental status MTDD
== END 2018-10-16 19:47 | disposition home health service (06) | DRG 177 ==
LOC: EC 14:56 → 4SSUR 17:48 → 3SCARD 22:05 → 2SICU 22:35 → 4SSUR 10-15 01:09
PROVIDERS: ADMIT Hospitalist; ATTEND Hospitalist
PROC: 05H933Z Insertion of Infusion Device into Right Brachial Vein, Percutaneous Approach (ICD-10-PCS; principal; 2018-10-13 12:45)
DX: J15.6 Pneumonia due to other Gram-negative bacteria (principal); J96.21 Acute and chronic respiratory failure with hypoxia; C34.90 Malignant neoplasm of unspecified part of unspecified bronchus or lung; J44.0 Chronic obstructive pulmonary disease with (acute) lower respiratory infection; J44.1 Chronic obstructive pulmonary disease with (acute) exacerbation; M48.54XA Collapsed vertebra, not elsewhere classified, thoracic region, initial encounter for fracture; I71.2 Thoracic aortic aneurysm, without rupture; E04.2 Nontoxic multinodular goiter; E78.5 Hyperlipidemia, unspecified; F17.200 Nicotine dependence, unspecified, uncomplicated; F32.9 Major depressive disorder, single episode, unspecified; F41.9 Anxiety disorder, unspecified; F51.04 Psychophysiologic insomnia; H91.90 Unspecified hearing loss, unspecified ear; H93.13 Tinnitus, bilateral; I10 Essential (primary) hypertension; K57.30 Diverticulosis of large intestine without perforation or abscess without bleeding; Z52.4 Kidney donor; Z79.51 Long term (current) use of inhaled steroids; Z79.82 Long term (current) use of aspirin; Z79.899 Other long term (current) drug therapy; Z88.5 Allergy status to narcotic agent; Z88.7 Allergy status to serum and vaccine; Z90.5 Acquired absence of kidney; Z90.710 Acquired absence of both cervix and uterus; Z92.21 Personal history of antineoplastic chemotherapy; Z92.3 Personal history of irradiation; Z99.81 Dependence on supplemental oxygen; Z87.01 Personal history of pneumonia (recurrent); Z87.440 Personal history of urinary (tract) infections; Z86.010 Personal history of colon polyps; Z90.49 Acquired absence of other specified parts of digestive tract; Z98.42 Cataract extraction status, left eye; Z98.41 Cataract extraction status, right eye; Z96.1 Presence of intraocular lens; Z80.0 Family history of malignant neoplasm of digestive organs; Y95 Nosocomial condition
CPT/HCPCS: 36410; 36415; 71045; 71046; 76937; 80048; 80053; 80306; 81001; 82803; 83735; 84484; 85025; 87040; 87070; 87086; 87205; 93005; 94640; 99285

== ENCOUNTER → 2018-10-31 | Outpatient (CLI) | payer MEDICARE ==
--- NOTE | 2018-10-31 17:08 | MR ---
EXAMINATION TYPE: MR brain wo/w con DATE OF EXAM: 10/31/2018 COMPARISON: 08/07/2018 HISTORY: Lung Ca CONTRAST: Performed utilizing 6 mL intravenous Gadavist gadolinium contrast. TECHNIQUE: Multiplanar, multiecho imaging on a 3.0 Johana magnet is performed through the brain. Stud y is performed within 24 hours of arrival to the hospital. The craniovertebral junction is normal. The pituitary is normal. Diffusion-weighted imaging is performed. No abnormal hyperintensity is present to suggest an acute i ntracranial infarct or acute ischemic change. Periventricular white matter hyperintensity is present. Subcortical white matter changes are present bilaterally. Findings are similar to the 08/07/2018 exam. Ventricles and sulci are prominent for the patient age. Following contrast demonstration no suspiciou s enhancement is evident. No suspicious area for metastatic disease is identified. There is opacification of the right maxillary sinus. Cholecystectomy retention cysts within the left maxillary sinus. IMPRESSIONS: 1. Extensive white matter changes present previously. 2. No suspicious changes to suggest metastatic disease
== END ==
LOC: RADMRIMAIN 10:43
PROVIDERS: ATTEND Radiology Radiation Oncology
DX: C34.32 Malignant neoplasm of lower lobe, left bronchus or lung (principal); Z92.3 Personal history of irradiation; Z87.891 Personal history of nicotine dependence
CPT/HCPCS: 70553; A9585

== ENCOUNTER → 2018-11-01 | Outpatient (CLI) | payer MEDICARE ==
--- NOTE | 2018-11-01 14:59 | CT ---
EXAMINATION TYPE: CT chest w con DATE OF EXAM: 11/01/2018 COMPARISON: 10/22/2014 HISTORY: Follow up lung cancer CT DLP: 394 mGycm Automated exposure control for dose reduction was used. CONTRAST: CT scan of the chest is performed with IV Contrast, patient injected with 50 mL of Isovue 300. FINDINGS: LUNGS: Upper lobe emphysematous changes noted. No evidence for pulmonary nodule or mass. No infiltrat e or pleural effusion. MEDIASTINUM: There are no greater than 1 cm hilar or mediastinal lymph nodes. No pericardial effusi on is seen. Marked ectasia of the thoracic aorta with the distal descending thoracic aortic aneurysm measuring 5.2 cm with mural thrombus noted. Calcified hilar and mediastinal lymph nodes. UPPER ABDOMEN: Splenic granulomas noted. Simple appearing cyst left kidney. Right kidney not clearly visualized. OTHER: Markedly enlarged thyroid gland with substernal extension and tracheal deviation from left to right compatible with thyroid goiter. IMPRESSION: 1. Emphysematous changes as noted. No concerning nodule or mass. 2. Ascending thoracic aortic aneurysm. 3. Substernal goiter.
== END ==
LOC: RADCTMAIN 13:30
PROVIDERS: ATTEND Internal Medicine Hematology & Oncology
DX: C34.90 Malignant neoplasm of unspecified part of unspecified bronchus or lung (principal); E04.9 Nontoxic goiter, unspecified; J43.9 Emphysema, unspecified; I71.2 Thoracic aortic aneurysm, without rupture
CPT/HCPCS: 82565; 84520; 71260; 36415; Q9967

== ENCOUNTER 2018-11-16 11:16 | Emergency (ER) | payer MEDICARE ==
[2018-11-16 11:32] VITALS: RESP 18
--- NOTE | 2018-11-16 11:41 | ED ---
General Adult HPI - General Chief complaint: Psychiatric Symptoms Stated complaint: Mental health Time Seen by Provider: 11/16/18 11:18 Source: patient, RN notes reviewed Mode of arrival: ambulatory Limitations: no limitations - History of Present Illness Initial comments: 68-year-old female presents to the emergency department for a chief complaint of visual hallucinations. Patient states she has been seeing her parked outside her apartment. She has also been seeing her grandsons come over to her apartment. States this feels real to her. However her visiting nurse told her she was hallucinating and needed to be seen. Patient denies this happening before. Denies any suicidal thoughts. Denies any thoughts of harming herself or anyone else. States that she did tell her visiting nurse that if she was put in a residential she would "shoot herself in the head" but she states she did not mean this seriously. Patient is currently being treated for a urinary tract infection as she did have altered mental status with a UTI previously. States that she is has lung cancer in remission, had a negative PET scan of the brain.Patient has no other complaints at this time including shortness of breath, chest pain, abdominal pain, nausea or vomiting, headache, or visual changes. - Related Data Home Medications Medication Instructions Recorded Confirmed DULoxetine HCL [Cymbalta] 60 mg PO DAILY 03/25/17 11/16/18 Metoprolol Succinate [Toprol XL] 25 mg PO DAILY 03/25/17 11/16/18 DULoxetine HCL [Cymbalta] 30 mg PO DAILY 03/06/18 11/16/18 ALPRAZolam [Xanax] 0.5 mg PO BID PRN 07/25/18 11/16/18 Methimazole [Tapazole] 5 mg PO DAILY 07/25/18 11/16/18 Albuterol Sulfate [Proair Hfa] 2 puff INHALATION RT-Q4H PRN 08/31/18 11/16/18 Calcium Carbonate/Vitamin D3 1 tab PO DAILY 08/31/18 11/16/18 [Calcium 500-Vit D3 600 Tablet] Budesonide-Formot 160-4.5 Mcg 2 puff INHALATION RT-BID 09/08/18 11/16/18 [Symbicort 160-4.5 Mcg Inhaler] Aspirin EC [Ecotrin Low Dose] 81 mg PO DAILY 09/21/18 11/16/18 Guaifenesin/Dextromethorphan 1 cap PO Q6H PRN 09/21/18 11/16/18 [Robitussin Pgets-Klvak-Afqd Dm] Montelukast [Singulair] 10 mg PO DAILY 09/21/18 11/16/18 Ondansetron HCl [Zofran] 8 mg PO Q6HR PRN 09/21/18 11/16/18 Ipratropium [place] [Atrovent Hfa] 2 puff INHALATION RT-QID 11/16/18 11/16/18 Previous Rx's Medication Instructions Recorded Atorvastatin [Lipitor] 10 mg PO HS #30 tab 08/31/18 Pantoprazole [Protonix] 40 mg PO DAILY #30 tablet. 09/24/18 amLODIPine [Norvasc] 10 mg PO DAILY #30 tab 10/16/18 Allergies Allergy/AdvReac Type Severity Reaction Status Date / Time Influenza Virus Vaccines Allergy Dyspnea Verified 11/16/18 11:58 hydromorphone [From Dilaudid] AdvReac Hallucinati Verified 11/16/18 11:58 ons Review of Systems ROS Statement: Those systems with pertinent positive or pertinent negative responses have been documented in the HPI. ROS Other: All systems not noted in ROS Statement are negative. Past Medical History Past Medical History: Asthma, Cancer, COPD, Hyperlipidemia, Hypertension, Pneumonia, Thyroid Disorder Additional Past Medical History / Comment(s): ecent UTI-now resolved, 2016 resp arrest, on vent here FEB 2017-resp. failure-on vent. in [place] visiting [facility] rehab after, O2 dependent- 2-4L/NC continuously, pneumonia 2010, acute trachebronchitis, chronic lt shoulder pain, DJD, bowel obstruction , donated R kidney to son, post colonoscopy with. polypectomy bleed and was in ICU, Graves disease, hx uti-ecoli 06-08-18 ,thoracic aortic anuerysm -being monitored. lung cancer pt stated due for chemo 07-26-18 and had radiation 07-17-18".pt stated they put a stent in my lung" History of Any Multi-Drug Resistant Organisms: None Reported Past Surgical History: Cholecystectomy, Hysterectomy, Orthopedic Surgery Additional Past Surgical History / Comment(s): R nephrectomy 1981, 2011 laparotomy with lysis of adhesions from kidney surgery causing bowel obstruction. L shoulder and collar bone surgery, colonoscopy with polypectomy, cataract surg-lens implants. Past Anesthesia/Blood Transfusion Reactions: No Reported Reaction Additional Past Anesthesia/Blood Transfusion Reaction / Comment(s): Pt has never received blood. Past Psychological History: Depression Smoking Status: Former smoker Past Alcohol Use History: None Reported Past Drug Use History: None Reported - Past Family History Father Family Medical History: Cancer Additional Family Medical History / Comment(s): Pancreatic cancer and passed when he was 58 Mother Family Medical History: No Reported History Additional Family Medical History / Comment(s): None General Exam Limitations: no limitations General appearance: alert, in no apparent distress Head exam: Present: atraumatic, normocephalic, normal inspection Eye exam: Present: normal appearance, PERRL, EOMI. Absent: scleral icterus, conjunctival injection, periorbital swelling ENT exam: Present: normal exam, normal oropharynx, mucous membranes moist, TM's normal bilaterally, normal external ear exam Neck exam: Present: normal inspection, full ROM. Absent: tenderness, meningismus, lymphadenopathy Respiratory exam: Present: normal lung sounds bilaterally. Absent: respiratory distress, wheezes, rales, rhonchi, stridor Cardiovascular Exam: Present: regular rate, normal rhythm, normal heart sounds. Absent: systolic murmur, diastolic murmur, rubs, gallop, clicks Neurological exam: Present: alert, oriented X3, CN II-XII intact, normal gait, other (GCS 15) Expanded Patient oriented to: Present: person, place, time Speech: Present: fluid speech Cranial nerves: EOM's Intact: Normal, Tongue Deviation: Normal, Nystagmus: Normal, Facial Sensation: Normal Cerebellar function: Finger to Nose: Normal Upper motor neuron: Pronator Drift: Normal Sensory exam: Upper Extremity Light Touch: Normal, Upper Extremity Pin Prick: Normal, Lower Extremity Light Touch: Normal, Lower Extremity Pin Prick: Normal Motor strength exam: RUE: 5, LUE: 5, RLE: 5, LLE: 5 Eye Response: (4) open spontaneously Motor Response: (6) obeys commands Verbal Response: (5) oriented Nahomy Total: 15 Psychiatric exam: Present: normal affect, normal mood. Absent: homicidal ideation, suicidal ideation Course Vital Signs 11/16/18 11:28 Temperature 99.0 F Pulse Rate 85 Respiratory 18 Rate Blood Pressure 115/81 O2 Sat by Pulse 98 Oximetry Medical Decision Making - Medical Decision Making 68-year-old female presents to the emergency department for a chief complaint of visual hallucinations. States that she has been seeing her parked outside her apartment her grandsons coming over. States this feel real to her. Denies being anxious about these or feeling threatened over these. Denies any thoughts of injuring herself or anyone else. Denies fevers or chills. Patient is well-appearing and exam, sitting up alert, no focal neuro deficits. Vitals are stable. Patient is 90% on 4 L which she is on at home. CBC is unremarkable, hemoglobin is 10.2. This is better than patient's baseline. CMP does show a potassium of 3.2, replaced with 40 oral. CO2 32 from chronic COPD and lung cancer, patient's baseline. No evidence of urinary tract infection on urinalysis. Chest x-ray shows no acute pulmonary process. CT brain shows no acute cranial process. There is a suspected old lacunar infarct or [place], not significant in this setting. She was evaluated by EPS and cleared by psychiatry for follow-up. Patient recently moved into an assisted living facility, likely secondary to adjustment reaction. Patient will be discharged home with instructions on how to follow-up as well as multiple referrals from EPS. Stating she is comfortable with this. - Lab Data Result diagrams: 11/16/18 12:25 11/16/18 12:25 Lab Results 11/16/18 11/16/18 11/16/18 Range/Units 11:39 12:25 12:25 WBC 8.4 (3.8-10.6) k/uL RBC 3.39 L (3.80-5.40) m/uL Hgb 10.2 L (11.4-16.0) gm/dL Hct 31.9 L (34.0-46.0) % MCV 93.9 (80.0-100.0) fL MCH 30.2 (25.0-35.0) pg MCHC 32.1 (31.0-37.0) g/dL RDW 17.1 H (11.5-15.5) % Plt Count 206 (150-450) k/uL Neutrophils % 83 % Lymphocytes % 6 % Monocytes % 7 % Eosinophils % 3 % Basophils % 0 % Neutrophils # 6.9 (1.3-7.7) k/uL Lymphocytes # 0.5 L (1.0-4.8) k/uL Monocytes # 0.6 (0-1.0) k/uL Eosinophils # 0.2 (0-0.7) k/uL Basophils # 0.0 (0-0.2) k/uL Hypochromasia Slight Anisocytosis Slight Sodium 142 (137-145) mmol/L Potassium 3.2 L (3.5-5.1) mmol/L Chloride 102 (98-107) mmol/L Carbon Dioxide 35 H (22-30) mmol/L Anion Gap 5 mmol/L BUN 32 H (7-17) mg/dL Creatinine 0.99 (0.52-1.04) mg/dL Est GFR (CKD-EPI)AfAm 69 (>60 ml/min/1.73 sqM) Est GFR (CKD-EPI)NonAf 60 (>60 ml/min/1.73 sqM) Glucose 107 H (74-99) mg/dL Calcium 9.9 (8.4-10.2) mg/dL Total Bilirubin 0.5 (0.2-1.3) mg/dL AST 15 (14-36) U/L ALT 17 (9-52) U/L Alkaline Phosphatase 72 (38-126) U/L Total Protein 6.1 L (6.3-8.2) g/dL Albumin 3.8 (3.5-5.0) g/dL Urine Color Yellow Urine Appearance Clear (Clear) Urine pH 5.5 (5.0-8.0) Ur Specific [place] 1.022 (1.001-1.035) Urine Protein 1+ H (Negative) Urine Glucose (UA) Negative (Negative) Urine Ketones Negative (Negative) Urine Blood Negative (Negative) Urine Nitrite Negative (Negative) Urine Bilirubin Negative (Negative) Urine Urobilinogen <2.0 (<2.0) mg/dL Ur Leukocyte Esterase Negative (Negative) Urine RBC 1 (0-5) /hpf Urine WBC 2 (0-5) /hpf Ur Squamous Epith Cells <1 (0-4) /hpf Hyaline Casts 1 (0-2) /lpf Urine Mucus Rare H (None) /hpf Urine Opiates Screen Detected H (NotDetected) Ur Oxycodone Screen Not Detected (NotDetected) Urine Methadone Screen Not Detected (NotDetected) Ur Propoxyphene Screen Not Detected (NotDetected) Ur Barbiturates Screen Not Detected (NotDetected) U Tricyclic Antidepress Not Detected (NotDetected) Ur Phencyclidine Scrn Not Detected (NotDetected) Ur Amphetamines Screen Not Detected (NotDetected) U Methamphetamines Scrn Not Detected (NotDetected) U Benzodiazepines Scrn Detected H (NotDetected) Urine Cocaine Screen Not Detected (NotDetected) U Marijuana (THC) Screen Not Detected (NotDetected) Disposition Clinical Impression: Adjustment reaction Disposition: HOME SELF-CARE Condition: Good Instructions (If sedation given, give patient instructions): Stress (ED), Hallucinations (ED) Additional Instructions: Please follow up with psychiatry and primary care in 1-2 days. Return here if you have any worsening symptoms or thoughts of harming herself or anyone else. Is patient prescribed a controlled substance at d/c from ED?: No Referrals: Chris Lopez DO [Primary Care Provider] - 1-2 days Time of Disposition: 16:21
[2018-11-16 11:58] LABS: Appearance,Urine Clear (Clear); Bilirubin,Urine Negative (Negative); Blood,Urine Negative (Negative); Color,Urine Yellow; Glucose,Urine (UA) Negative (Negative); Hyaline Casts,Urine 1 /lpf (0-2); Ketones,Urine Negative (Negative); Leukocyte Esterase,Urine Negative (Negative); Mucus,Urine Rare /hpf; Nitrite,Urine Negative (Negative); PH, Urine 5.5 (5.0-8.0); Protein,Urine 1+ (Negative); RBC,Urine 1 /hpf (0-5); Specific Gravity,Urine 1.022 (1.001-1.035); Squamous Epithelial Cell,Urine <1 /hpf (0-4); Urobilinogen,Urine <2.0 mg/dL (<2.0); WBC,Urine 2 /hpf (0-5)
[2018-11-16 12:08] LABS: Amphetamine Screen,Urine Not Detected (NotDetected); Barbiturate Screen,Urine Not Detected (NotDetected); Benzodiazepines Screen,Urine Detected (NotDetected); Cocaine Screen,Urine Not Detected (NotDetected); Methadone Screen, Urine Not Detected (NotDetected); Opiate Screen,Urine Detected (NotDetected); Oxycodone Screen, Urine Not Detected (NotDetected); Phencyclidine Screen,Urine Not Detected (NotDetected); Tricyclic Antidepressant,Urine Not Detected (NotDetected); Urn Cannabinoid Scrn Not Detected (NotDetected)
[2018-11-16 12:37] LABS: Anisocytosis Slight; Basophils % (A) 0 %; Eosinophils # (A) 0.2 k/uL (0-0.7); Eosinophils % (A) 3 %; HCT 31.9 % (34.0-46.0); HGB 10.2 gm/dL (11.4-16.0); Hypochromasia Slight; Lymphocytes # (A) 0.5 k/uL (1.0-4.8); Lymphocytes % (A) 6 %; MCH 30.2 pg (25.0-35.0); MCHC 32.1 g/dL (31.0-37.0); MCV 93.9 fL (80.0-100.0); Mean Platelet Volume 6.9; Monocytes # (A) 0.6 k/uL (0-1.0); Monocytes % (A) 7 %; Neutrophils # (A) 6.9 k/uL (1.3-7.7); Neutrophils % (A) 83 %; Platelet Count 206 k/uL (150-450); RBC 3.39 m/uL (3.80-5.40); RDW 17.1 % (11.5-15.5); WBC 8.4 k/uL (3.8-10.6)
[2018-11-16 12:48] LABS: Albumin 3.8 g/dL (3.5-5.0); Calcium 9.9 mg/dL (8.4-10.2); Potassium 3.2 mmol/L (3.5-5.1); Total Bilirubin 0.5 mg/dL (0.2-1.3); Total Protein 6.1 g/dL (6.3-8.2)
[2018-11-16] MEDS ORDERED: POTASSIUM CHLORIDE ER 20 MEQ TAB.ER PO STA (13:06)
--- NOTE | 2018-11-16 15:41 | CT ---
EXAMINATION TYPE: CT brain wo con DATE OF EXAM: 11/16/2018 COMPARISON: 08/30/2018 INDICATION: altered mental status DLP: 1078.4 mGycm, Automated exposure control for dose reduction was used. CONTRAST: None CT of the brain is performed utilizing 3 mm thick sections through the posterior fossa and 3 mm thick sections through the remaining calvarium. Study is performed within 24 hours of arrival to the hosp [facility]. No abnormal hyperdensity is present to suggest an acute intracranial hemorrhage. No mass lesion is evident. No acute infarcts are evident. Lacunar infarct or Virchow-John spaces in the inferior left basal sandra glion. Ventricles and sulci are appropriate for the patient age. There is a retention cyst within the right maxillary sinus. IMPRESSIONS: 1. No acute intracranial process. 2. Suspected old lacunar infarct or Virchow-John space inferior left basal ganglion
--- NOTE | 2018-11-16 15:42 | XR ---
EXAMINATION TYPE: XR chest 2V DATE OF EXAM: 11/16/2018 COMPARISON: 10/13/2018 INDICATION: Fever, UTI, acute mental status change TECHNIQUE: Frontal and lateral views of the chest are obtained. FINDINGS: The heart size is normal. The pulmonary vasculature is normal. The lungs are clear. Previous infiltrate within the left base is absent. There is prior left clavicl e plate and screw placement. IMPRESSION: 1. No acute pulmonary process.
[2018-11-16] MEDS ORDERED: IPRATROPIUM-ALBUTEROL 3 ML NEB INHALATION STA (15:48)
[2018-11-16 17:29] VITALS: BP 127/74; PULSE 87; TEMP 98.7
== END 2018-11-16 17:29 | disposition home or self-care (01) ==
LOC: EC 11:16
DX: F43.20 Adjustment disorder, unspecified (principal); J44.9 Chronic obstructive pulmonary disease, unspecified; I10 Essential (primary) hypertension; F32.9 Major depressive disorder, single episode, unspecified; Z87.891 Personal history of nicotine dependence; Z85.118 Personal history of other malignant neoplasm of bronchus and lung; Z79.51 Long term (current) use of inhaled steroids; Z79.82 Long term (current) use of aspirin; Z79.899 Other long term (current) drug therapy; Z88.5 Allergy status to narcotic agent; Z88.7 Allergy status to serum and vaccine
CPT/HCPCS: 36415; 70450; 71046; 80053; 80306; 81001; 82075; 85025; 94640; 99285

== ENCOUNTER 2019-01-09 12:40 | Inpatient (IN) | payer MEDICARE ==
--- NOTE | 2019-01-09 13:13 | ED ---
General Adult HPI - General Chief complaint: Psychiatric Symptoms Stated complaint: Mental health Time Seen by Provider: 01/09/19 12:40 Source: patient, EMS, RN notes reviewed Mode of arrival: EMS Limitations: no limitations - History of Present Illness Initial comments: This is a 68-year-old female presents emergency Department with a psychiatric history. EMS brought her in because the patient was laying pills outside of her apartment and people around her got concerned. Patient also states she sees a woman in her apartment every day but doesn't live there and she has 4 children that don't live there. Patient also states every night her comes in waves by her in bed. Patient states none of these people she sees ever speaks to her. Patient states that probably on her head but she is not sure. Patient denies any suicidal homicidal ideations. Patient denies any physical complaints. Patient states she does have a history of lung cancer. - Related Data Home Medications Medication Instructions Recorded Confirmed ALPRAZolam [Xanax] 0.5 mg PO BID PRN 07/25/18 01/09/19 Methimazole [Tapazole] 5 mg PO DAILY 07/25/18 01/09/19 Albuterol Sulfate [Proair Hfa] 2 puff INHALATION RT-Q4H PRN 08/31/18 01/09/19 Aspirin EC [Ecotrin Low Dose] 81 mg PO DAILY 09/21/18 01/09/19 Montelukast [Singulair] 10 mg PO DAILY 09/21/18 01/09/19 Ondansetron HCl [Zofran] 8 mg PO Q6HR PRN 09/21/18 01/09/19 Arformoterol Tartrate [Brovana] 15 mcg INHALATION RT-BID 01/09/19 01/09/19 DULoxetine HCL [Cymbalta] 30 mg PO DAILY 01/09/19 01/09/19 DULoxetine HCL [Cymbalta] 60 mg PO DAILY 01/09/19 01/09/19 HYDROcodone/APAP 10-325MG [[place] 1 tab PO Q6H PRN 01/09/19 01/09/19 10-325] Metoprolol Succinate (ER) [Toprol 50 mg PO DAILY 01/09/19 01/09/19 Xl] Temazepam [Restoril] 15 mg PO HS PRN 01/09/19 01/09/19 risperiDONE [RisperDAL] 0.25 mg PO BID 01/09/19 01/09/19 Previous Rx's Medication Instructions Recorded Atorvastatin [Lipitor] 10 mg PO HS #30 tab 08/31/18 amLODIPine [Norvasc] 10 mg PO DAILY #30 tab 10/16/18 Allergies Allergy/AdvReac Type Severity Reaction Status Date / Time Influenza Virus Vaccines Allergy Dyspnea Verified 01/09/19 14:18 hydromorphone [From Dilaudid] AdvReac Hallucinati Verified 01/09/19 14:18 ons Review of Systems ROS Statement: Those systems with pertinent positive or pertinent negative responses have been documented in the HPI. ROS Other: All systems not noted in ROS Statement are negative. Past Medical History Past Medical History: Asthma, Cancer, COPD, Hyperlipidemia, Hypertension, Pneumonia, Thyroid Disorder Additional Past Medical History / Comment(s): ecent UTI-now resolved, 2016 resp arrest, on vent here FEB 2017-resp. failure-on vent. in [place] visiting [facility] rehab after, O2 dependent- 2-4L/NC continuously, pneumonia 2010, acute trachebronchitis, chronic lt shoulder pain, DJD, bowel obstruction , donated R kidney to son, post colonoscopy with. polypectomy bleed and was in ICU, Graves disease, hx uti-ecoli 06-08-18 ,thoracic aortic anuerysm -being monitored. lung cancer pt stated due for chemo 07-26-18 and had radiation 07-17-18".pt stated they put a stent in my lung" History of Any Multi-Drug Resistant Organisms: None Reported Past Surgical History: Cholecystectomy, Hysterectomy, Orthopedic Surgery Additional Past Surgical History / Comment(s): R nephrectomy 1981, 2011 laparotomy with lysis of adhesions from kidney surgery causing bowel obstruction. L shoulder and collar bone surgery, colonoscopy with polypectomy, cataract surg-lens implants. Past Anesthesia/Blood Transfusion Reactions: No Reported Reaction Additional Past Anesthesia/Blood Transfusion Reaction / Comment(s): Pt has never received blood. Past Psychological History: Depression, Schizophrenia Smoking Status: Former smoker Past Alcohol Use History: None Reported Past Drug Use History: None Reported - Past Family History Father Family Medical History: Cancer Additional Family Medical History / Comment(s): Pancreatic cancer and passed when he was 58 Mother Family Medical History: No Reported History Additional Family Medical History / Comment(s): None General Exam - General Exam Comments Initial Comments: GENERAL: Patient is well-developed and well-nourished. Patient is nontoxic and well-hyd rated and is in no acute distress. ENT: Neck is soft and supple. No significant lymphadenopathy is noted. Oropharynx is clear. Moist mucous membranes. Neck has full range of motion without elicit ing any pain. EYES: The sclera were anicteric and conjunctiva were pink and moist. Extraocular mo vements were intact and pupils were equal round and reactive to light. Eyelids were unremarkable. PULMONARY: Unlabored respirations. Good breath sounds bilaterally. No audible rales rhonchi or wheezing was noted. CARDIOVASCULAR: There is a regular rate and rhythm without any murmurs gallops or rubs. ABDOMEN: Soft and nontender with normal bowel sounds. No palpable organomegaly was noted. There is no palpable pulsatile mass. SKIN: Has a large bruise on the right medial calf NEUROLOGIC: Patient is alert and oriented x3. Cranial nerves II through XII are grossly intact. Motor and sensory are also intact. Normal speech, volume and content. Symmetrical smile. C MUSCULOSKELETAL: Normal extremities with adequate strength and full range of motion. No lower extremity swelling or edema. No calf tenderness. LYMPHATICS: No significant lymphadenopathy is noted PSYCHIATRIC: Patient is having visual hallucinations. Limitations: no limitations Course Vital Signs 01/09/19 12:41 Temperature 100.2 F H Pulse Rate 98 Respiratory 18 Rate Blood Pressure 141/97 O2 Sat by Pulse 98 Oximetry Medical Decision Making - Medical Decision Making I filled out a clinical certification after the psychiatric nurse petition the patient to stay. - Lab Data Result diagrams: 01/09/19 15:00 01/09/19 15:00 Lab Results 01/09/19 01/09/19 01/09/19 Range/Units 13:04 15:00 15:00 WBC 9.1 (3.8-10.6) k/uL RBC 3.83 (3.80-5.40) m/uL Hgb 10.8 L (11.4-16.0) gm/dL Hct 35.1 (34.0-46.0) % MCV 91.5 (80.0-100.0) fL MCH 28.1 (25.0-35.0) pg MCHC 30.7 L (31.0-37.0) g/dL RDW 15.9 H (11.5-15.5) % Plt Count 196 (150-450) k/uL Neutrophils % 82 % Lymphocytes % 8 % Monocytes % 7 % Eosinophils % 2 % Basophils % 0 % Neutrophils # 7.4 (1.3-7.7) k/uL Lymphocytes # 0.7 L (1.0-4.8) k/uL Monocytes # 0.6 (0-1.0) k/uL Eosinophils # 0.2 (0-0.7) k/uL Basophils # 0.0 (0-0.2) k/uL Sodium 144 (137-145) mmol/L Potassium 3.6 (3.5-5.1) mmol/L Chloride 103 (98-107) mmol/L Carbon Dioxide 35 H (22-30) mmol/L Anion Gap 6 mmol/L BUN 29 H (7-17) mg/dL Creatinine 1.03 (0.52-1.04) mg/dL Est GFR (CKD-EPI)AfAm 66 (>60 ml/min/1.73 sqM) Est GFR (CKD-EPI)NonAf 57 (>60 ml/min/1.73 sqM) Glucose 94 (74-99) mg/dL Calcium 10.0 (8.4-10.2) mg/dL Urine Color Yellow Urine Appearance Clear (Clear) Urine pH 6.5 (5.0-8.0) Ur Specific [place] 1.013 (1.001-1.035) Urine Protein Trace H (Negative) Urine Glucose (UA) Negative (Negative) Urine Ketones Negative (Negative) Urine Blood Negative (Negative) Urine Nitrite Negative (Negative) Urine Bilirubin Negative (Negative) Urine Urobilinogen <2.0 (<2.0) mg/dL Ur Leukocyte Esterase Negative (Negative) Urine Opiates Screen Detected H (NotDetected) Ur Oxycodone Screen Not Detected (NotDetected) Urine Methadone Screen Not Detected (NotDetected) Ur Propoxyphene Screen Not Detected (NotDetected) Ur Barbiturates Screen Not Detected (NotDetected) U Tricyclic Antidepress Not Detected (NotDetected) Ur Phencyclidine Scrn Not Detected (NotDetected) Ur Amphetamines Screen Not Detected (NotDetected) U Methamphetamines Scrn Not Detected (NotDetected) U Benzodiazepines Scrn Detected H (NotDetected) Urine Cocaine Screen Not Detected (NotDetected) U Marijuana (THC) Screen Not Detected (NotDetected) Serum Alcohol <10 mg/dL Disposition Clinical Impression: Acute psychosis Disposition: ADMITTED IP TO THIS HOSP Referrals: Chris Lopez DO [Primary Care Provider] - 1-2 days Time of Disposition: 17:13
[2019-01-09 13:41] LABS: Appearance,Urine Clear (Clear); Bilirubin,Urine Negative (Negative); Blood,Urine Negative (Negative); Color,Urine Yellow; Glucose,Urine (UA) Negative (Negative); Ketones,Urine Negative (Negative); Leukocyte Esterase,Urine Negative (Negative); Nitrite,Urine Negative (Negative); PH, Urine 6.5 (5.0-8.0); Protein,Urine Trace (Negative); Specific Gravity,Urine 1.013 (1.001-1.035); Urobilinogen,Urine <2.0 mg/dL (<2.0)
--- NOTE | 2019-01-09 13:44 | XR ---
EXAMINATION TYPE: XR chest 1V portable DATE OF EXAM: 01/09/2019 COMPARISON: 12/23/2018 HISTORY: Fever TECHNIQUE: Single frontal view of the chest is obtained. FINDINGS: Heart remains enlarged. There is subsegmental consolidation at both lung bases. No pneumot horax. Diffuse osteopenia with postsurgical change left clavicle. Atherosclerotic change aorta. Under lying COPD suspected. IMPRESSION: Stable x-ray demonstrating cardiomegaly with basilar subsegmental atelectasis or infiltr ate.
[2019-01-09 13:56] LABS: Amphetamine Screen,Urine Not Detected (NotDetected); Cocaine Screen,Urine Not Detected (NotDetected); Opiate Screen,Urine Detected (NotDetected); Phencyclidine Screen,Urine Not Detected (NotDetected); Urn Cannabinoid Scrn Not Detected (NotDetected)
[2019-01-09 13:57] LABS: Barbiturate Screen,Urine Not Detected (NotDetected); Benzodiazepines Screen,Urine Detected (NotDetected); Methadone Screen, Urine Not Detected (NotDetected); Oxycodone Screen, Urine Not Detected (NotDetected); Tricyclic Antidepressant,Urine Not Detected (NotDetected)
--- NOTE | 2019-01-09 14:11 | CT ---
EXAMINATION TYPE: CT brain wo con DATE OF EXAM: 01/09/2019 HISTORY: hallucinations CT DLP: 1044.4 mGycm. Automated Exposure Control for Dose Reduction was Utilized. TECHNIQUE: CT scan of the head is performed without contrast. COMPARISON: CT brain Nov 16 2018. FINDINGS: There is no acute intracranial hemorrhage or midline shift identified. There is diffuse v entricular and sulcal prominence consistent with diffuse age-related cerebral atrophy. There is low- attenuation in the periventricular white matter consistent with chronic small vessel ischemic change. Patchy soft tissue density bilateral to peristalsis. Reflects cerumen. There is large mucous retenti on cyst or polyp in the right maxillary sinus with some patchy opacification dependently just superio r to this axial image 9 noted on current study. IMPRESSION: No acute intracranial hemorrhage or midline shift. There is mild diffuse age-related ce rebral atrophy and [id number] chronic small vessel ischemic change redemonstrated without signi ficant interval change. Possible acute on chronic right maxillary sinus disease, correlate clinicall y.
[2019-01-09 15:11] LABS: Basophils % (A) 0 %; Eosinophils # (A) 0.2 k/uL (0-0.7); Eosinophils % (A) 2 %; HCT 35.1 % (34.0-46.0); HGB 10.8 gm/dL (11.4-16.0); Lymphocytes # (A) 0.7 k/uL (1.0-4.8); Lymphocytes % (A) 8 %; MCH 28.1 pg (25.0-35.0); MCHC 30.7 g/dL (31.0-37.0); MCV 91.5 fL (80.0-100.0); Mean Platelet Volume 6.5; Monocytes # (A) 0.6 k/uL (0-1.0); Monocytes % (A) 7 %; Neutrophils # (A) 7.4 k/uL (1.3-7.7); Neutrophils % (A) 82 %; Platelet Count 196 k/uL (150-450); RBC 3.83 m/uL (3.80-5.40); RDW 15.9 % (11.5-15.5); WBC 9.1 k/uL (3.8-10.6)
[2019-01-09 15:19] LABS: African American GFR (CKD) 66 (>60 ml/min/1.73 sqM); Alcohol <10 mg/dL; Anion Gap 6 mmol/L; Blood Urea Nitrogen 29 mg/dL (7-17); Carbon Dioxide 35 mmol/L (22-30); Chloride 103 mmol/L (98-107); Glucose 94 mg/dL (74-99); Potassium 3.6 mmol/L (3.5-5.1); Sodium 144 mmol/L (137-145)
[2019-01-09] MEDS ORDERED: HYDROcodone/APAP 10-325MG 1 EACH TAB PO ONE (18:30)
[2019-01-09] MEDS ORDERED: MAG HYDROX/AL HYDROX/SIMETH 30 ML CUP PO PRN (20:44)
[2019-01-09] MEDS ORDERED: MAGNESIUM HYDROXIDE 2,400 MG/10 ML CUP PO PRN (20:44)
[2019-01-09] MEDS ORDERED: ZIPRASIDONE 20 MG VIAL IM PRN (20:44)
[2019-01-09] MEDS: ATORVASTATIN 10 MG TAB PO SCH (22:08)
[2019-01-09] MEDS: risperiDONE ODT 1 MG TAB PO SCH (22:08)
[2019-01-10] MEDS: FORMOTEROL FUMARATE 20 MCG/2 ML NEBU INHALATION SCH ×2 (09:04→20:58)
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
[2019-01-10] MEDS: METOPROLOL SUCCINATE (ER) 50 MG TAB.ER.24H PO SCH (10:15)
[2019-01-10] MEDS: amLODIPine 10 MG TAB PO SCH (10:15)
[2019-01-10] MEDS: ASPIRIN 81 MG PO SCH (10:16)
[2019-01-10] MEDS: MONTELUKAST 10 MG TAB PO SCH (10:16)
[2019-01-10] MEDS: METHIMAZOLE 5 MG TAB PO SCH (10:16)
[2019-01-10] MEDS: DULoxetine HCL 60 MG CAPSULE.DR PO SCH (10:17)
[2019-01-10] MEDS: ACETAMINOPHEN TAB 325 MG TAB PO PRN (10:23)
[2019-01-10] MEDS: ALBUTEROL INHALER 60 PUFF/8 GM INHALER INHALATION PRN ×3 (12:55→20:23)
[2019-01-10] MEDS: CYCLOBENZAPRINE 5 MG TAB PO PRN ×2 (15:18→20:29)
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
[2019-01-10 19:59] LABS: Hemoglobin A1C 5.4 % (4.0-6.0)
[2019-01-10] MEDS: ATORVASTATIN 10 MG TAB PO SCH (20:21)
[2019-01-10] MEDS: risperiDONE ODT 1 MG TAB PO SCH (20:21)
[2019-01-10] MEDS: BUDESONIDE 1 MG/2 ML NEBU INHALATION SCH (20:58)
[2019-01-10] MEDS: IPRATROPIUM-ALBUTEROL 3 ML NEB INHALATION SCH (20:58)
[2019-01-11] MEDS ORDERED: HYDROcodone/APAP 10-325MG 1 EACH TAB PO PRN (01:20)
[2019-01-11] MEDS: ASPIRIN 81 MG PO SCH (08:53)
[2019-01-11] MEDS: DULoxetine HCL 60 MG CAPSULE.DR PO SCH (08:53)
[2019-01-11] MEDS: METHIMAZOLE 5 MG TAB PO SCH (08:53)
[2019-01-11] MEDS: MONTELUKAST 10 MG TAB PO SCH (08:53)
[2019-01-11] MEDS: ALBUTEROL INHALER 60 PUFF/8 GM INHALER INHALATION PRN ×3 (08:54→18:25)
[2019-01-11] MEDS: FORMOTEROL FUMARATE 20 MCG/2 ML NEBU INHALATION SCH ×2 (09:39→19:39)
[2019-01-11] MEDS: IPRATROPIUM-ALBUTEROL 3 ML NEB INHALATION SCH ×2 (09:40→19:25)
[2019-01-11] MEDS: BUDESONIDE 1 MG/2 ML NEBU INHALATION SCH ×2 (09:40→19:26)
[2019-01-11] MEDS: METOPROLOL SUCCINATE (ER) 50 MG TAB.ER.24H PO SCH (10:22)
[2019-01-11] MEDS: amLODIPine 10 MG TAB PO SCH (10:23)
[2019-01-11] MEDS ORDERED: HYDROcodone/APAP 5-325MG 1 EACH TAB PO PRN (11:23)
[2019-01-11] MEDS: CYCLOBENZAPRINE 5 MG TAB PO PRN (13:26)
--- NOTE | 2019-01-11 13:46 | P.PN ---
Progress Note - Text Progress Note Date: 01/11/19 Interval History: Patient is a 68-year-old female who was seen in coverage for Dr. Portillo. Patient states that her back was really bothering her last night, she states that she fell after she saw her outpatient physician. She states that her back has hurt more since she fell last otherwise her back pain has been more or less consistent since 2004. Patient states that she is eating well, states that the visual hallucinations are still present but not as prominent as they were at home. Patient reports no suicidal thoughts, states that her breathing is comfortable today. Mental Status: Appearance/Attitude: Patient is casually dressed, wearing O2, sitting at the edge of her bed in no acute distress and made eye contact and was cooperative Behavior: Patient did not exhibit any psychomotor agitation or retardation Speech/Language: Patient's speech was spontaneous of normal volume and rhythm and she is coherent Thought Process: Patient is goal-directed there is no evidence of loose association or flight of ideas Thought Content: Patient denies any auditory hallucinations but states that her visual hallucinations persist but are less frequent than they were when she was at home. No delusional or paranoid ideation is elicited. Patient states that she is feeling comfortable, no difficulty breathing today and states that she is eating well. Patient states that she did not sleep well last night due to back pain which she states has been worse since she fell last and was worse last night here in the hospital. Suicidal/Homicidal Ideation: Patient denies any current suicidal or homicidal ideation. Sensorium/Cognition: He is alert and oriented to person, place and time Mood/Affect: Patient's mood is pleasant and her affect is appropriate Insight/Judgment: Patient's insight and judgment are fair Assessment: Patient was seen today and she reports that her back pain was much worse last evening, she also states that she fell after leaving her doctor's office outside of where she lived. She states that her back pain and been more or less consistent prior to that. Patient is diagnosed with lung cancer treated with chemotherapy and radiation in the past. Patient states that she is still having visual hallucinations they are less frequent than when she was at home and she states they're not bothersome to her. Patient denied any other difficulties at this time. Plan: Patient will continue on her current medications, her [place] as needed was decreased to 5 mg every 6 hours as needed and medical claims assistant was contacted regarding her increasing back pain and a consult with the oncologist was obtained the patient's last bone scan was in April 2018 and she has a history of lung cancer. Patient continues to require hospitalization to further stabilize her symptoms.
--- NOTE | 2019-01-11 16:22 | P.CONS ---
History of Present Illness - Reason for Consult Consult date: 01/11/19 History of small cell lung cancer Requesting physician: Noe Ellis - Chief Complaint Confusion - History of Present Illness Mrs. Kern is a very pleasant 68-year-old female patient known to the practice, she has a history of limited stage small cell lung cancer with treatment being completed in September 2018, she was treated with carbo, etoposide and radiation to the lung mass concurrently, she did not have PCI. She had follow-up computed tomography scan 11/01/2018 that showed no evidence of disease. Patient is due for treatment follow-up imaging/disease monitoring in January. Patient is mated to the mental health unit for an episode of confusion and combativeness. When seen patient she is very pleasant, she remembered me, she does not remember the events leading up to her being hospitalized. She knows that she is on 4 L of oxygen, she denied any complaints on a 14 point review of systems to me. Review of Systems 10 point review of systems is negative Past Medical History Past Medical History: Asthma, Cancer, COPD, Hyperlipidemia, Hypertension, Pneumonia, Thyroid Disorder Additional Past Medical History / Comment(s): ecent UTI-now resolved, 2015 resp arrest, on vent here FEB 2017-resp. failure-on vent. in [place] visiting brother-[facility] after, O2 dependent- 2-4L/NC continuously, pneumonia 2010, acute trachebronchitis, chronic lt shoulder pain, DJD, bowel obstruction , donated R kidney to son, post colonoscopy with. polypectomy bleed and was in ICU, Graves disease, hx uti-ecoli 06-08-18 ,thoracic aortic anuerysm -being monitored. lung cancer pt stated due for chemo 07-26-18 and had radiation 07-17-18".pt stated they put a stent in my lung" History of Any Multi-Drug Resistant Organisms: None Reported Past Surgical History: Cholecystectomy, Hysterectomy, Orthopedic Surgery Additional Past Surgical History / Comment(s): R nephrectomy 1981, 2011 lapa rotomy with lysis of adhesions from kidney surgery causing bowel obstruction. L shoulder and collar bone surgery, colonoscopy with polypectomy, cataract surg- lens implants. Past Anesthesia/Blood Transfusion Reactions: No Reported Reaction Additional Past Anesthesia/Blood Transfusion Reaction / Comm: Pt has never received blood. Past Psychological History: Depression, Schizophrenia Smoking Status: Former smoker Past Alcohol Use History: None Reported Past Drug Use History: None Reported - Past Family History Father Family Medical History: Cancer Additional Family Medical History / Comment(s): Pancreatic cancer and passed when he was 58 Mother Family Medical History: No Reported History Additional Family Medical History / Comment(s): None Medications and Allergies Home Medications Medication Instructions Recorded Confirmed Type ALPRAZolam [Xanax] 0.5 mg PO BID PRN 07/25/18 01/09/19 History Methimazole [Tapazole] 5 mg PO DAILY 07/25/18 01/09/19 History Albuterol Sulfate [Proair Hfa] 2 puff INHALATION RT-Q4H PRN 08/31/18 01/09/19 History Atorvastatin [Lipitor] 10 mg PO HS #30 tab 08/31/18 01/09/19 Rx Aspirin EC [Ecotrin Low Dose] 81 mg PO DAILY 09/21/18 01/09/19 History Montelukast [Singulair] 10 mg PO DAILY 09/21/18 01/09/19 History Ondansetron HCl [Zofran] 8 mg PO Q6HR PRN 09/21/18 01/09/19 History amLODIPine [Norvasc] 10 mg PO DAILY #30 tab 10/16/18 01/09/19 Rx Arformoterol Tartrate [Brovana] 15 mcg INHALATION RT-BID 01/09/19 01/09/19 History DULoxetine HCL [Cymbalta] 30 mg PO DAILY 01/09/19 01/09/19 History DULoxetine HCL [Cymbalta] 60 mg PO DAILY 01/09/19 01/09/19 History HYDROcodone/APAP 10-325MG [[place] 1 tab PO Q6H PRN 01/09/19 01/09/19 History 10-325] Metoprolol Succinate (ER) [Toprol 50 mg PO DAILY 01/09/19 01/09/19 History Xl] Temazepam [Restoril] 15 mg PO HS PRN 01/09/19 01/09/19 History risperiDONE [RisperDAL] 0.25 mg PO BID 01/09/19 01/09/19 History Allergies Allergy/AdvReac Type Severity Reaction Status Date / Time Influenza Virus Vaccines Allergy Dyspnea Verified 01/09/19 14:18 hydromorphone [From Dilaudid] AdvReac Hallucinati Verified 01/09/19 14:18 ons Physical Exam Vitals: Vital Signs Temp Pulse Pulse Resp BP Pulse Ox 01/11/19 10:23 104 H 20 125/74 01/11/19 10:14 108 H 01/11/19 09:56 108 H 01/11/19 09:55 108 H 01/11/19 09:40 108 H 01/11/19 08:51 112 H 20 100/65 01/11/19 07:08 97.9 F 98 18 131/76 96 01/10/19 21:25 88 01/10/19 21:15 88 01/10/19 21:14 88 01/10/19 20:58 88 - Constitutional General appearance: average body habitus, cooperative, no acute distress - EENT Eyes: anicteric sclerae, EOMI ENT: hearing grossly normal, normal oropharynx - Neck Neck: no lymphadenopathy - Respiratory Respiratory: bilateral: CTA, diminished - Cardiovascular Rhythm: regular Heart sounds: normal: S1, S2 Abnormal Heart Sounds: no systolic murmur, no diastolic murmur, no rub, no S3 Gallop, no S4 Gallop, no click, no other leg Peripheral Edema: bilateral: None - Gastrointestinal General gastrointestinal: no absent bowel sounds, no decreased bowel sounds, no distended, no hepatomegaly, no hyperactive bowel sounds, normal bowel sounds, no organomegaly, no rigid, no scaphoid, soft, no splenomegaly, no tenderness, no umbilical hernia, no ventral hernia - Neurologic Neurologic: CNII-XII intact - Musculoskeletal Musculoskeletal: strength equal bilaterally - Psychiatric Psychiatric: A&O x's 3, appropriate affect Results CBC & Chem 7: 01/09/19 15:00 01/09/19 15:00 Abdominal x-ray: report reviewed CT Scan - head: report reviewed Assessment and Plan (1) Acute psychosis Narrative/Plan: Defer treatment of the same to the [facility] Current Visit: Yes Status: Acute Priority: High Code(s): F23 - BRIEF PSYCHOTIC DISORDER SNOMED Code(s): 77171969 (2) Small cell lung cancer Narrative/Plan: Patient is due for scans and just a few weeks. On physical exam, and based on her presentation I'm not going to request that the computed tomography scan of the chest, abdomen and pelvis be moved up at this time, pt did remember that she has a scan and follow up scheduled. Patient did have a CT of the head, it did not reveal any evidence of disease but, MRI of the brain can be more sensitive for brain metastasis, this will be ordered. Results need to be sent to Radiation Oncology. Concern for patient's narcotic and anti-anxiety medications creating confusion. Appears that her pain meds are every 6 hours when necessary and that her antianxiety medication is twice a day when necessary. Patient has been on this dose for quite some time. We will await thorough evaluation before making any adjustments. Patient affect and behavior was better today than on admission from chart review. Urinary analysis did not show any evidence of a urinary tract infection Chest x-ray did not show any signs or symptoms of pneumonia. It was reported as stable. We are available for any questions or concerns. We will review the MRI results of the brain. Patient has not had any recent treatment for her disease she has been stable. Patient can be treated for her current condition as seen fit by her providers. Current Visit: No Status: Chronic Priority: Medium Code(s): C34.90 - M ALIGNANT NEOPLASM OF UNSP PART OF UNSP BRONCHUS OR LUNG SNOMED Code(s): 2 26213318
[2019-01-11] MEDS: ATORVASTATIN 10 MG TAB PO SCH (20:29)
[2019-01-11] MEDS: HYDROcodone/APAP 5-325MG 1 EACH TAB PO PRN (20:30)
[2019-01-11] MEDS: ALPRAZolam 0.5 MG TAB PO PRN (20:31)
[2019-01-11] MEDS: risperiDONE ODT 1 MG TAB PO SCH (20:32)
[2019-01-11] MEDS: ALBUTEROL INHALER 60 PUFF/8 GM INHALER INHALATION SCH (22:09)
[2019-01-12] MEDS: ALBUTEROL INHALER 60 PUFF/8 GM INHALER INHALATION SCH ×6 (00:45→21:46)
[2019-01-12] MEDS: DULoxetine HCL 60 MG CAPSULE.DR PO SCH (09:22)
[2019-01-12] MEDS: HYDROcodone/APAP 5-325MG 1 EACH TAB PO PRN ×2 (09:22→17:12)
[2019-01-12] MEDS: METHIMAZOLE 5 MG TAB PO SCH (09:22)
[2019-01-12] MEDS: ASPIRIN 81 MG PO SCH (09:24)
[2019-01-12] MEDS: MONTELUKAST 10 MG TAB PO SCH (09:25)
[2019-01-12] MEDS: IPRATROPIUM-ALBUTEROL 3 ML NEB INHALATION SCH ×2 (09:26→21:24)
[2019-01-12] MEDS: FORMOTEROL FUMARATE 20 MCG/2 ML NEBU INHALATION SCH ×2 (09:26→21:24)
[2019-01-12] MEDS: BUDESONIDE 1 MG/2 ML NEBU INHALATION SCH ×2 (09:26→21:24)
[2019-01-12] MEDS: CYCLOBENZAPRINE 5 MG TAB PO PRN ×2 (09:52→20:22)
--- NOTE | 2019-01-12 10:12 | P.PN ---
Progress Note - Text Interval history: The patient's found in her room she seated upright at the bedside. She indicates her mood is okay. In my absence she was seen by oncology an MRI of her brain was ordered to rule out metastasis. Her Trimble was restarted at 5 mg as needed. She states that her back has been hurting. We discussed using this judiciously as there is some concern it may be precipitating symptoms of psychosis. She states that she does continue to experience visual hallucinations but they are different. When she sees people their faces are blurred out. And it seems to be occurring less often. Appetite is been stable. She has had phone conversations with family. She anticipates several visits over the weekend. She attended one group yesterday. She is hoping to attend more but feels that the oxygen condenser is too cumbersome to deal with in group. Mental status exam: The patient is alert she seated upright in bed. She Desyrel clothing hygiene grooming adequate. She has or nasal cannula oxygen on. Eye contact is appropriate speech is fluent spontaneous nonpressured. She reports her mood is good. Affect is bright. She denies having any suicidal or homicidal ideation intent or plan. She endorses ongoing visual hallucinations as recent as this morning. She will typically visualize people but states recently the faces have been blurred out. There seems to be some decrease frequency of the hallucinations. She is reporting no specific delusions. She is reporting no auditory hallucinations. She demonstrates no hypomanic or manic symptoms. Insight and judgment improving. Plan: Ongoing symptoms of psychosis with some improvement, continue the Risperdal M tab is written. We will consider titrating the dose. Trimble and Xanax are available for acute pain and extreme anxiety only. We want to minimize also substances due to their safety risk. She has been evaluated by oncology and is scheduled have an MRI of her brain. We will continue to monitor her for safety and encourage participation in the milieu. Vital signs reviewed.
[2019-01-12] MEDS: METOPROLOL SUCCINATE (ER) 50 MG TAB.ER.24H PO SCH (11:35)
[2019-01-12] MEDS: amLODIPine 10 MG TAB PO SCH (11:36)
[2019-01-12] MEDS: risperiDONE ODT 1 MG TAB PO SCH (20:22)
[2019-01-12] MEDS: ATORVASTATIN 10 MG TAB PO SCH (20:22)
--- NOTE | 2019-01-12 20:26 | MR ---
EXAMINATION TYPE: MR brain wo/w con DATE OF EXAM: 01/12/2019 COMPARISON: CT brain 01/09/2019 HISTORY: Confusion, lung CA TECHNIQUE: Multiplanar, multisequence images of the brain and brainstem is performed without and with IV contras t, utilizing 6.5 mL intravenous Gadavist . FINDINGS: There is motion on the exam. Diffusion weighted images demonstrate no evidence of a recent infarct or other diffusion abnormality. There is no extra-axial fluid collection. Confluent and scat tered periventricular, pericallosal, subcortical and juxtacortical hyperintensities are present on in version recovery T2-weighted sequences, greater than 50 lesions present. The ventricular system and c isternal spaces are normal in size and appearance. The brain volume is age appropriate. There is age -related atrophy. Midline structures demonstrate normal morphology. The craniocervical junction appears within normal limits. Post contrast images demonstrate no abnormal enhancement. The dural venous sinuses appear pa tent. The visualized sinuses are remarkable for extensive inflammatory change in the right maxillary sinus, there may be mucus retention cyst in the left maxillary sinus. The globes are intact. IMPRESSION: No abnormal enhancement to suggest metastatic disease. Correlate for maxillary sinusitis. Age-related atrophy and probable chronic small vessel ischemia.
[2019-01-12] MEDS: ALPRAZolam 0.5 MG TAB PO PRN (23:05)
[2019-01-12] MEDS: ACETAMINOPHEN TAB 325 MG TAB PO PRN (23:05)
[2019-01-13] MEDS: ALBUTEROL INHALER 60 PUFF/8 GM INHALER INHALATION SCH ×6 (01:26→19:21)
[2019-01-13] MEDS: HYDROcodone/APAP 5-325MG 1 EACH TAB PO PRN ×2 (01:29→14:11)
[2019-01-13] MEDS: amLODIPine 10 MG TAB PO SCH (08:19)
[2019-01-13] MEDS: ASPIRIN 81 MG PO SCH (08:19)
[2019-01-13] MEDS: METHIMAZOLE 5 MG TAB PO SCH (08:19)
[2019-01-13] MEDS: METOPROLOL SUCCINATE (ER) 50 MG TAB.ER.24H PO SCH (08:19)
[2019-01-13] MEDS: DULoxetine HCL 60 MG CAPSULE.DR PO SCH (08:19)
[2019-01-13] MEDS: MONTELUKAST 10 MG TAB PO SCH (08:19)
[2019-01-13] MEDS: CYCLOBENZAPRINE 5 MG TAB PO PRN ×2 (08:36→17:57)
[2019-01-13] MEDS: FORMOTEROL FUMARATE 20 MCG/2 ML NEBU INHALATION SCH ×2 (08:48→20:21)
[2019-01-13] MEDS: IPRATROPIUM-ALBUTEROL 3 ML NEB INHALATION SCH ×2 (08:49→20:21)
[2019-01-13] MEDS: BUDESONIDE 1 MG/2 ML NEBU INHALATION SCH ×2 (08:49→20:21)
--- NOTE | 2019-01-13 13:32 | P.PN ---
Progress Note - Text Progress Note Date: 01/13/19 Interval history: Patient is seen in cross coverage today. She is found in her room sitting on her bed. She had just eaten lunch. Her appetite seems to be doing well. She says she slept about 12 hours. She feels like her mood is just about back to baseline. Mental status exam: She is alert and cooperative with the interview. Her speech is fluent, not rapid or pressured. Thought processes are organized. Her mood is improved. She does show range of affect. She does not verbalize any hallucinations and she denies any thoughts of harm to self or others. She does not show any agitation. Plan: Patient will be maintained on current psychotropic medication regimen. Continue to monitor for any medication side effects and monitor her ongoing response to treatment. We'll continue to cover this patient through the weekend.
[2019-01-13] MEDS: ACETAMINOPHEN TAB 325 MG TAB PO PRN (17:57)
[2019-01-13] MEDS: ATORVASTATIN 10 MG TAB PO SCH (20:53)
[2019-01-13] MEDS: risperiDONE ODT 1 MG TAB PO SCH (20:53)
[2019-01-14] MEDS: ALBUTEROL INHALER 60 PUFF/8 GM INHALER INHALATION SCH ×6 (00:28→21:22)
[2019-01-14] MEDS: HYDROcodone/APAP 5-325MG 1 EACH TAB PO PRN ×3 (01:59→17:36)
[2019-01-14] MEDS: CYCLOBENZAPRINE 10 MG TAB PO PRN ×3 (05:46→22:13)
[2019-01-14] MEDS: ACETAMINOPHEN TAB 325 MG TAB PO PRN ×2 (05:47→22:12)
[2019-01-14] MEDS: FORMOTEROL FUMARATE 20 MCG/2 ML NEBU INHALATION SCH ×2 (09:28→20:56)
[2019-01-14] MEDS: IPRATROPIUM-ALBUTEROL 3 ML NEB INHALATION SCH ×2 (09:28→20:56)
[2019-01-14] MEDS: BUDESONIDE 1 MG/2 ML NEBU INHALATION SCH ×2 (09:28→20:56)
[2019-01-14] MEDS: METOPROLOL SUCCINATE (ER) 50 MG TAB.ER.24H PO SCH (09:34)
[2019-01-14] MEDS: ASPIRIN 81 MG PO SCH (09:34)
[2019-01-14] MEDS: METHIMAZOLE 5 MG TAB PO SCH (09:34)
[2019-01-14] MEDS: DULoxetine HCL 60 MG CAPSULE.DR PO SCH (09:34)
[2019-01-14] MEDS: amLODIPine 10 MG TAB PO SCH (09:34)
[2019-01-14] MEDS: MONTELUKAST 10 MG TAB PO SCH (09:34)
--- NOTE | 2019-01-14 16:38 | P.PN ---
Progress Note - Text Progress Note Date: 01/14/19 Interval history: Patient is seen in cross coverage again today. She states she had a visit with her son earlier today. She does describe being in more back pain today. Makes a reference related to the pain regarding jumping out the window but relays that this is a figure of speech and denies any thoughts of harm to herself. She does not verbalize any adverse psychotropic medication side effects. Mental status exam: She is alert and cooperative with the interview. She is seen in her room. She reports that her mood is doing good. She denies any thoughts of harm to herself. She does not voice any thoughts of harm to others she does not show any active evidence of psychosis and does not show any agitation. She does complain of being in pain. On Plan: Patient will be maintained on current psychotropic medication regimen. We will continue to monitor for any medication side effects and monitor her ongoing response to treatment.
[2019-01-14] MEDS: ATORVASTATIN 10 MG TAB PO SCH (21:22)
[2019-01-14] MEDS: risperiDONE ODT 1 MG TAB PO SCH (21:22)
[2019-01-15] MEDS: HYDROcodone/APAP 5-325MG 1 EACH TAB PO PRN ×2 (01:46→09:01)
[2019-01-15] MEDS: ALBUTEROL INHALER 60 PUFF/8 GM INHALER INHALATION SCH ×7 (05:04→19:04)
[2019-01-15] MEDS: BUDESONIDE 1 MG/2 ML NEBU INHALATION SCH ×2 (07:58→21:13)
[2019-01-15] MEDS: IPRATROPIUM-ALBUTEROL 3 ML NEB INHALATION SCH ×2 (07:58→21:12)
[2019-01-15] MEDS: FORMOTEROL FUMARATE 20 MCG/2 ML NEBU INHALATION SCH ×2 (07:58→21:12)
[2019-01-15] MEDS: amLODIPine 10 MG TAB PO SCH (09:00)
[2019-01-15] MEDS: ASPIRIN 81 MG PO SCH (09:00)
[2019-01-15] MEDS: DULoxetine HCL 60 MG CAPSULE.DR PO SCH (09:01)
[2019-01-15] MEDS: METHIMAZOLE 5 MG TAB PO SCH (09:01)
[2019-01-15] MEDS: METOPROLOL SUCCINATE (ER) 50 MG TAB.ER.24H PO SCH (09:01)
[2019-01-15] MEDS: MONTELUKAST 10 MG TAB PO SCH (09:01)
--- NOTE | 2019-01-15 11:13 | P.PN ---
Progress Note - Text Interval history: The patient is found in her room she prefers not to follow me to an interview room. She initially states her hallucinations are better. However during the conversation she actively participates in a conversation with a visual hallucination who she believes is her son. During our interaction she states there was a female sitting next to her son and then the child appeared. Staff report that the patient has been speaking with herself in her room alone throughout the morning. I observed that as well at the conclusion of our session after I left the room she continue to carry on a conversation. We reviewed her current medications. She has not been using the Xanax. She has been using [place] for pain. She indicates her pain has been significant. Mental status exam: The patient is alert she seated in bed she is wearing nasal cannula oxygen. She is endorsing visual hallucinations. She states that one will call her name constantly. She finds that troubling. During our session she actively participated in a conversation with a hallucination. She indicates feeling safe in the hospital. She is reporting no thoughts of harming herself or others. She demonstrates no verbal or physical aggressiveness. She remains oriented to person place and date. She maintains a constricted affect. Insight and judgment limited. She is dressed in her own clothing hygiene grooming adequate. Plan: Ongoing symptoms of psychosis, there is still some suspicion that the [place] could be contributing to her psychosis. Her symptoms are exacerbated from when I saw her last. Notes from the family meeting were reviewed. It appears she was less symptomatic than. I will increase Risperdal 1 mg at bedtime. Nursing will contact internal medicine to see if there are any alternatives that may be effective for her pain without using an opiate. Vital signs reviewed. She requires continued hospitalization.
--- NOTE | 2019-01-15 13:54 | P.PN ---
Subjective Progress Note Date: 01/15/19 Principal diagnosis: Hallucinations Mrs. 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 She has been admitted to the psychiatric unit one week back. She is currently being treated for hallucinations. On 01/15/2019 - I was informed by the nursing staff that the patient has been hallucinating more than her usual. She has been seeing her son sitting in the room with her and she was having a conversation with him. The staff thinks that this is an acute change from couple of days back. On talking with her the patient states the difficulty in breathing is the same. She complains of chronic low back pain that is worse. Patient denies having any loss of bladder or bowel control. Denies having any tingling or numbness in her lower extremities. Patient denies having any dysuria or hematuria. She denies having abdominal pain nausea vomiting or diarrhea. Patient denies having any chest pain. No reported headaches or blurring of vision. She denies having any fevers chills or rigors. During the conversation with her and she thinks Cher, from Pulmonary ,at the bedside even though she was not there in the room. Patient's medications have been reviewed - she is getting [place] and Flexeril when necessary for her pain. On reviewing the Vitas patient - is requiring 4 L of oxygen and saturating at 95% which is her baseline. No fever and no tachycardia and blood pressure within normal limits. Objective - Vital Signs Vital signs: Vital Signs Temp 97.9 F 01/15/19 06:14 Pulse 93 01/15/19 09:48 Resp 20 01/15/19 09:48 BP 131/72 01/15/19 09:48 Pulse Ox 95 01/15/19 09:48 - Exam GEN. APPEARANCE: Patient is comfortably sitting in her bed with oxygen at 4 L. HEAD EXAM: atraumatic, normocephalic, normal inspection EYE EXAM: normal appearance, PERRL, EOMI. Absent: scleral icterus, conjunctival injection, periorbital swelling ENT EXAM: normal exam, mucous membranes moist NECK EXAM: normal inspection. Absent: tenderness, meningismus, full ROM, lymphadenopathy RESPIRATORY EXAM: Bilateral coarse breath sounds. Prolonged expiratory phase. No wheezes. CARDIOVASCULAR EXAM: regular rate, normal rhythm, normal heart sounds. Absent: systolic murmur, diastolic murmur, rubs, gallop, clicks GI/ABDOMINAL EXAM: soft, normal bowel sounds. Absent: distended, tenderness, guarding, rebound, rigid EXTREMITIES EXAM: No peripheral edema Examination of the back: Mild tenderness in the midline in the lumbosacral area NEUROLOGICAL EXAM: She is awake alert oriented 3. But hallucinating. No focal neurological deficits. SKIN EXAM: Skin is thin and fragile - Labs CBC & Chem 7: 01/09/19 15:00 01/09/19 15:00 Assessment and Plan Assessment: ASSESSMENT Hallucinations Chronic hypoxic respiratory failure Small cell lung cancer status post chemo and radiation therapy COPD on 4 L of home oxygen Right nephrectomy from patient having donated a kidney Chronic compression fracture of the thoracic vertebra Anxiety disorder not otherwise specified Nontoxic multinodular goiter Depression otherwise specified Thoracic aortic aneurysm 4.8 cm Chronic insomnia Chronic diverticulosis and colonic Chronic bilateral tinnitus Hyperlipidemia Essential hypertension PLAN: Patient has been admitted for hallucinations, but for the past couple of days her symptoms have worsened. On reviewing the patient's labs medications and physical exam nothing suggestive of an ongoing infection. We will get CBC and a basic metabolic panel. [place] and Flexeril have been discontinued. Patient can have tramadol for her low back pain. Will follow up on these results. Further recommendations to follow depending on the progress of the patient.
[2019-01-15 15:18] LABS: Basophils % (A) 0 %; Eosinophils # (A) 0.2 k/uL (0-0.7); Eosinophils % (A) 4 %; HCT 31.6 % (34.0-46.0); HGB 9.8 gm/dL (11.4-16.0); Lymphocytes # (A) 0.5 k/uL (1.0-4.8); Lymphocytes % (A) 8 %; MCH 28.2 pg (25.0-35.0); MCHC 31.2 g/dL (31.0-37.0); MCV 90.4 fL (80.0-100.0); Mean Platelet Volume 6.5; Monocytes # (A) 0.6 k/uL (0-1.0); Monocytes % (A) 9 %; Neutrophils % (A) 77 %; Platelet Count 169 k/uL (150-450); RBC 3.49 m/uL (3.80-5.40); RDW 15.4 % (11.5-15.5); WBC 6.5 k/uL (3.8-10.6)
[2019-01-15 15:24] LABS: Calcium 10.2 mg/dL (8.4-10.2); Potassium 3.7 mmol/L (3.5-5.1)
[2019-01-15] MEDS: traMADol 50 MG TAB PO PRN (15:58)
--- NOTE | 2019-01-15 17:15 | XR ---
EXAMINATION TYPE: XR chest 2V DATE OF EXAM: 01/15/2019 COMPARISON: Chest x-ray January 09, 2019. HISTORY: Chest pain. TECHNIQUE: Frontal and lateral views of the chest are obtained. FINDINGS: There is fusion plate through healed fracture left clavicle. Demineralization is present. T here is chronic parenchymal changes with right basilar linear scarring and/or atelectasis. There is n o new suspicious focal airspace opacity, pleural effusion, or pneumothorax. Cardiac silhouette size i s stable and mildly enlarged. IMPRESSION: Chronic parenchymal changes and mild cardiomegaly without suspicious new acute pulmonary process.
--- NOTE | 2019-01-15 17:16 | XR ---
EXAMINATION TYPE: XR lumbar spine 2 or 3V DATE OF EXAM: 01/15/2019 CLINICAL HISTORY: Low back pain TECHNIQUE: Frontal and lateral images of the lumbar spine are obtained. COMPARISON: Lumbar spine x-ray October 22, 2014 FINDINGS: There are 5 lumbar type vertebral bodies identified. The lumbar spine redemonstrates slig ht dextroconvex scoliotic curvature centered at L2-L3 level without evidence of acute fracture or dis location. There is persistent mild to moderate compression type fracture deformity involving superior L1 endplate. Alignment is stable. Vertebral body heights and disc space heights are otherwise mainta ined. Vascular calcification overlying abdominal aorta is redemonstrated. IMPRESSION: As above.
[2019-01-15 20:11] LABS: Appearance,Urine Clear (Clear); Bacteria,Urine Moderate /hpf; Bilirubin,Urine Negative (Negative); Blood,Urine Negative (Negative); Color,Urine Light Yellow; Glucose,Urine (UA) Negative (Negative); Ketones,Urine Negative (Negative); Leukocyte Esterase,Urine Large (Negative); Mucus,Urine Rare /hpf; Nitrite,Urine Negative (Negative); PH, Urine 6.5 (5.0-8.0); Protein,Urine Trace (Negative); RBC,Urine 4 /hpf (0-5); Specific Gravity,Urine 1.014 (1.001-1.035); Squamous Epithelial Cell,Urine 1 /hpf (0-4); Urobilinogen,Urine <2.0 mg/dL (<2.0); WBC,Urine 25 /hpf (0-5)
[2019-01-15] MEDS: ATORVASTATIN 10 MG TAB PO SCH (20:28)
[2019-01-15] MEDS ORDERED: risperiDONE ODT 1 MG TAB PO SCH (21:00)
[2019-01-15] MEDS: CEPHALEXIN 500 MG CAP PO SCH (21:42)
[2019-01-15] MEDS: LIDOCAINE 5% PATCH TOPICAL SCH (22:13)
[2019-01-16] MEDS: ALBUTEROL INHALER 60 PUFF/8 GM INHALER INHALATION SCH ×5 (00:17→16:23)
[2019-01-16] MEDS: traMADol 50 MG TAB PO PRN ×3 (00:27→16:10)
[2019-01-16] MEDS: FORMOTEROL FUMARATE 20 MCG/2 ML NEBU INHALATION SCH ×2 (08:27→20:48)
[2019-01-16] MEDS: BUDESONIDE 1 MG/2 ML NEBU INHALATION SCH ×2 (08:27→20:48)
[2019-01-16] MEDS: IPRATROPIUM-ALBUTEROL 3 ML NEB INHALATION SCH ×4 (08:27→23:47)
[2019-01-16] MEDS: DULoxetine HCL 60 MG CAPSULE.DR PO SCH (09:07)
[2019-01-16] MEDS: CEPHALEXIN 500 MG CAP PO SCH ×3 (09:07→20:37)
[2019-01-16] MEDS: ASPIRIN 81 MG PO SCH (09:07)
[2019-01-16] MEDS: amLODIPine 10 MG TAB PO SCH (09:07)
[2019-01-16] MEDS: METHIMAZOLE 5 MG TAB PO SCH (09:08)
[2019-01-16] MEDS: METOPROLOL SUCCINATE (ER) 50 MG TAB.ER.24H PO SCH (09:08)
[2019-01-16] MEDS: MONTELUKAST 10 MG TAB PO SCH (09:09)
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
[2019-01-16 13:34] VITALS: BMI 25.0
[2019-01-16] MEDS ORDERED: IBUPROFEN 600 MG TAB PO PRN (16:00)
[2019-01-16] MEDS ORDERED: IBUPROFEN 600 MG TAB PO ONE (16:44)
[2019-01-16] MEDS: ATORVASTATIN 10 MG TAB PO SCH (20:37)
[2019-01-16] MEDS ORDERED: risperiDONE ODT 1 MG TAB PO SCH (21:00)
[2019-01-16] MEDS: LIDOCAINE 5% PATCH TOPICAL SCH (21:38)
--- NOTE | 2019-01-17 02:51 | XR ---
EXAM: XR Chest, 1 View CLINICAL HISTORY: ITS.REASON XR Reason: Resp distress TECHNIQUE: Frontal view of the chest. COMPARISON: 01/09/19 01/15/19 x-ray IMPRESSION: Increased opacity in the right middle to lower lobe, worsened from the prior exam. Possibly infection, edema, or atelectasis.
[2019-01-17] MEDS ORDERED: predniSONE 20 MG TAB PO SCH (03:00)
[2019-01-17 03:18] LABS: Basophils % (A) 0 %; Eosinophils # (A) 0.2 k/uL (0-0.7); Eosinophils % (A) 6 %; HCT 28.6 % (34.0-46.0); HGB 9.1 gm/dL (11.4-16.0); Hypochromasia Slight; Lymphocytes # (A) 0.4 k/uL (1.0-4.8); Lymphocytes % (A) 9 %; MCH 28.7 pg (25.0-35.0); MCHC 31.7 g/dL (31.0-37.0); MCV 90.4 fL (80.0-100.0); Mean Platelet Volume 6.6; Monocytes # (A) 0.3 k/uL (0-1.0); Monocytes % (A) 7 %; Neutrophils % (A) 74 %; Platelet Count 201 k/uL (150-450); RBC 3.16 m/uL (3.80-5.40); RDW 15.4 % (11.5-15.5); WBC 4.1 k/uL (3.8-10.6)
[2019-01-17 03:24] LABS: Calcium 9.4 mg/dL (8.4-10.2); Potassium 3.3 mmol/L (3.5-5.1)
[2019-01-17] MEDS: IPRATROPIUM-ALBUTEROL 3 ML NEB INHALATION SCH ×3 (03:46→12:14)
[2019-01-17] MEDS ORDERED: Potassium Replacement Protocol 1 EACH MISC MISCELLANE PRN (04:43)
[2019-01-17] MEDS: POTASSIUM CHLORIDE ER 20 MEQ TAB.ER PO SCH ×2 (04:54→06:03)
[2019-01-17 07:13] VITALS: RESP 20; TEMP 97.7
[2019-01-17] MEDS: ASPIRIN 81 MG PO SCH (08:49)
[2019-01-17] MEDS: METOPROLOL SUCCINATE (ER) 50 MG TAB.ER.24H PO SCH (08:49)
[2019-01-17] MEDS: METHIMAZOLE 5 MG TAB PO SCH (08:49)
[2019-01-17] MEDS: DULoxetine HCL 60 MG CAPSULE.DR PO SCH (08:49)
[2019-01-17] MEDS: amLODIPine 10 MG TAB PO SCH (08:49)
[2019-01-17] MEDS: MONTELUKAST 10 MG TAB PO SCH (08:50)
[2019-01-17] MEDS: traMADol 50 MG TAB PO PRN (08:51)
[2019-01-17 08:57] VITALS: BP 126/65
[2019-01-17] MEDS ORDERED: LEVOFLOXACIN 500 MG TAB PO SCH ×2 (09:00)
[2019-01-17] MEDS: FORMOTEROL FUMARATE 20 MCG/2 ML NEBU INHALATION SCH (09:10)
[2019-01-17] MEDS: BUDESONIDE 1 MG/2 ML NEBU INHALATION SCH (09:11)
--- NOTE | 2019-01-17 11:35 | P.PN ---
Progress Note - Text Interval history: The patient is found in her room, she is lying in bed. She is awake and participates in the conversation. I was informed by staff that the 18 was called last evening as she had an episode where her oxygen saturation was in the 70s. Chest x-ray was performed which was read as possible infection, edema or atelectasis in the right middle lobe. The patient has been restarted on steroids. She has been receiving breathing treatments. She indicates she is feeling better today. Labs from this morning reveal a slowly worsening anemia and BUN and creatinine are elevated. She indicates that she is experiencing no hallucinations today so far. She states that she may have had some yesterday. She indicates that she ate better. She reportedly attended some groups yesterday. Nursing had contacted the patient's son who reported the patient was not chronically on steroids and in fact wasn't on them before she came in. Pain is being addressed with use of tramadol. Mental status exam: The patient is alert she is wearing a nasal cannula oxygen. Eye contact is appropriate. She has spontaneous speech. She reports that she is feeling better. She is reporting no auditory or visual hallucinations so far this morning. It appears that she did have those symptoms yesterday in the afternoon and evening. She continues to report no thoughts of harming herself or others. She demonstrates no verbal or physical aggressiveness. She does demonstrate some short-term memory impairment. She is oriented to person place she names the day the week is Tuesday. She was correctly able to name the month of the year. She names the year as 1899 and then later she states it's 2009. She is noted to have difficulty organizing information from the last few days. She continues to struggle with her past hallucinations from reality. For example she insisted that I saw her in the ER when she first came into the hospital and took her off of steroids. Plan: Visual hallucinations, none reported this morning so far, continue Risperdal 1.5 mg at bedtime using the ODT form. I did speak with Dr. Avery to discuss her recent chest x-ray findings, elevation of BUN and creatinine, decrease in hemoglobin, and her episode involving the O2 saturation decreased last evening. He indicated that a covering colleague would reevaluate her today and make determination if she was appropriate for this unit or should be transferred to the medical floor. In that case we could continue to provide coverage for psychiatric concerns. Vital signs reviewed. We will continue to closely monitor her status.
[2019-01-17 12:28] VITALS: PULSE 90
--- NOTE | 2019-01-17 13:44 | P.PN ---
Subjective This is the first time taking care of the patient This is a pleasant 68 years old female with past medical history of COPD/asthma, hyperlipidemia, hypertension, hypothyroidism, status post right nephrectomy which was donated to her son, Graves' disease thoracic aortic aneurysm history of lung cancer status post chemoradiotherapy. Was admitted to the hospital and psychiatric unit on 01/10 for signs symptoms of psychosis from emergency room. Patient has been evaluated by medical service before. Follow-up was been asked today because patient was more lethargic, associated with some cough and phlegm unknown color and dyspnea. Also patient was noticed to be hypoxic in the 60s- 70s percent. Patient states that she has chronic back pain usually 8/10, actually currently she feels better as as serrated 6/10. Patient was noticed able to ambulate using her walker. Lumbar x-ray was done, showing slight scoliotic curvature at L2-L3 with mild to moderate compression fracture at L1. Her ibuprofen is already stopped Vitas looks stable and patient is been afebrile for more than 4 days although she had low-grade fever on admission. Labs reviewed showing no leukocytosis, hemoglobin stable at 9.1, acute kidney injury with creatinine 1.4, baseline 0.9- 1.0, hemoglobin A1c is 5.4%, cholesterol slightly elevated at 212, TSH 1.2. Urinalysis is suspicious for infection with large leukocyte esterase. Urine culture is growing gram-negative bacilli more than 100,000 units. Chest x-ray from today showing increased opacity in the right middle lobe to the lower lobe was sent from prior exam, suspicious for infection versus edema or atelectasis Objective - Vital Signs Vital signs: Vital Signs Temp 97.7 F 01/17/19 06:30 Pulse 90 01/17/19 12:27 Resp 20 01/17/19 06:30 BP 126/65 01/17/19 08:56 Pulse Ox 92 L 01/17/19 08:45 - Exam -GENERAL: The patient is alert and oriented x2-3, mildly tachypneic. HEENT: Pupils are round and equally reacting to light. EOMI. No scleral icterus. No conjunctival pallor. Normocephalic, atraumatic. No pharyngeal erythema. No thyromegaly. CARDIOVASCULAR: S1 and S2 present. No murmurs, rubs, or gallops. -PULMONARY: Chest is clear to auscultation, bilateral scattered wheezing on both sides with prolonged expiratory phase ABDOMEN: Soft, nontender, nondistended, normoactive bowel sounds. No palpable organomegaly. MUSCULOSKELETAL: No joint swelling or deformity. EXTREMITIES: No cyanosis, clubbing, or pedal edema. NEUROLOGICAL: Gross neurological examination did not reveal any focal deficits. SKIN: No rashes. - Labs CBC & Chem 7: 01/17/19 02:40 01/17/19 10:15 Labs: Abnormal Lab Results - Last 24 Hours (Table) 01/17/19 01/17/19 Range/Units 02:40 02:40 RBC 3.16 L (3.80-5.40) m/uL Hgb 9.1 L (11.4-16.0) gm/dL Hct 28.6 L (34.0-46.0) % Lymphocytes # 0.4 L (1.0-4.8) k/uL Potassium 3.3 L (3.5-5.1) mmol/L Carbon Dioxide 32 H (22-30) mmol/L BUN 38 H (7-17) mg/dL Creatinine 1.47 H (0.52-1.04) mg/dL Glucose 100 H (74-99) mg/dL Microbiology - Last 24 Hours (Table) 01/15/19 22:00 Urine Culture - Preliminary Urine,Voided Gram Neg Bacilli Assessment and Plan Assessment: Pneumonia, possible community-acquired Acute hypoxic respiratory failure Acute COPD exacerbation Acute urinary tract infection Acute kidney injury Psychosis and other sac illnesses, management as per primary psych team Compression of fracture at L1 without evidence of acute fracture or dislocation History of small cell lung cancer, status post chemoradiotherapy Chronic hypoxic respiratory failure on 4 L oxygen at home History of right nephrectomy, donated to her son Hypothyroidism Hypertension Hyperlipidemia History of thoracic aortic aneurysm 4.8 cm Chronic diverticulosis Chronic bilateral tinnitus Plan: This is a pleasant 68 years old female admitted to the psychiatric unit for psychosis. She has a few ongoing medical problems, she has been treated with Keflex for suspected UTI will continue with antibiotic. We recommend to transfer the patient to the medical floor when she is psychiatric stable to transfer and cleared by psychiatrist. Start the patient on IV antibiotics and switch Keflex to Levaquin, we'll add doxycycline. Follow-up the urine culture results . Send sputum culture we'll start the patient on normal saline, we will add calcium and vitamin D. Labs and medication were reviewed.. Continue same treatment. Continue with symptomatic treatment. Resume home medication. Monitor lytes and vitals. DVT and GI prophylaxis. Further recommendations of the clinical course of the patient DVT prophylaxis: Subcutaneous heparin GI Prophylaxis: Pepcid Prognosis is guarded Discussed with the staff
[2019-01-17] MEDS ORDERED: DOXYCYCLINE 100 MG in SODIUM CHLORIDE 0.9% 100 ML IVPB SCH (13:45)
[2019-01-17] MEDS ORDERED: SODIUM CHLORIDE 0.9% 1,000 ML IV SCH (13:45)
[2019-01-17] MEDS ORDERED: methylPREDNISolone SOD SUCCI 40 MG/ML 1 ML VIAL IV SCH (16:00)
[2019-01-18] MEDS ORDERED: LEVOFLOXACIN 250 MG TAB PO SCH (09:00)
== END 2019-01-17 15:08 | disposition short-term general hospital (02) | DRG 885 ==
LOC: EC 12:40 → 3MHU 20:31
PROVIDERS: ADMIT Psychiatry & Neurology Psychiatry; ATTEND Psychiatry & Neurology Psychiatry
DX: F29 Unspecified psychosis not due to a substance or known physiological condition (principal); J18.9 Pneumonia, unspecified organism; J96.21 Acute and chronic respiratory failure with hypoxia; J44.0 Chronic obstructive pulmonary disease with (acute) lower respiratory infection; J44.1 Chronic obstructive pulmonary disease with (acute) exacerbation; M84.48XA Pathological fracture, other site, initial encounter for fracture; N17.9 Acute kidney failure, unspecified; N39.0 Urinary tract infection, site not specified; D64.9 Anemia, unspecified; E03.9 Hypothyroidism, unspecified; E05.20 Thyrotoxicosis with toxic multinodular goiter without thyrotoxic crisis or storm; E78.5 Hyperlipidemia, unspecified; F32.9 Major depressive disorder, single episode, unspecified; F41.9 Anxiety disorder, unspecified; F51.04 Psychophysiologic insomnia; G89.29 Other chronic pain; H91.90 Unspecified hearing loss, unspecified ear; H93.13 Tinnitus, bilateral; I10 Essential (primary) hypertension; I71.2 Thoracic aortic aneurysm, without rupture; K57.30 Diverticulosis of large intestine without perforation or abscess without bleeding; W19.XXXA Unspecified fall, initial encounter; Z79.82 Long term (current) use of aspirin; Z79.899 Other long term (current) drug therapy; Z80.0 Family history of malignant neoplasm of digestive organs; Z85.118 Personal history of other malignant neoplasm of bronchus and lung; Z87.891 Personal history of nicotine dependence; Z90.5 Acquired absence of kidney; Z90.710 Acquired absence of both cervix and uterus; Z92.21 Personal history of antineoplastic chemotherapy; Z92.3 Personal history of irradiation; Z98.42 Cataract extraction status, left eye; Z98.41 Cataract extraction status, right eye; Z96.1 Presence of intraocular lens; Z99.81 Dependence on supplemental oxygen
CPT/HCPCS: 36415; 70450; 70553; 71045; 71046; 72100; 80048; 80061; 80306; 80320; 81001; 81003; 83036; 84132; 84443; 85025; 87077; 87086; 87186; 94640; 94760; 99285

== ENCOUNTER 2019-01-17 13:49 | Inpatient (IN) | payer MEDICARE ==
[2019-01-17] MEDS ORDERED: ALPRAZolam 0.5 MG TAB PO PRN (17:24)
[2019-01-17] MEDS ORDERED: TEMAZEPAM 15 MG CAP PO PRN (17:24)
[2019-01-17] MEDS: SODIUM CHLORIDE 0.9% 1,000 ML IV SCH (18:32)
[2019-01-17] MEDS: ALBUTEROL NEBULIZED 2.5 MG/3 ML INHALATION PRN ×2 (19:57→22:58)
[2019-01-17] MEDS: ATORVASTATIN 10 MG TAB PO SCH (21:09)
[2019-01-17] MEDS: DOXYCYCLINE 100 MG in SODIUM CHLORIDE 0.9% 100 ML IVPB SCH (21:09)
[2019-01-17] MEDS: HEPARIN SODIUM,PORCINE 5,000 UNIT/ML 1 ML VIAL SQ SCH (21:10)
[2019-01-17] MEDS: risperiDONE 0.25 MG TAB PO SCH (21:10)
[2019-01-17] MEDS: FAMOTIDINE 20 MG/2 ML VIAL IV SCH (21:10)
[2019-01-17] MEDS ORDERED: traMADol 50 MG TAB PO SCH (22:00)
[2019-01-18] MEDS: LIDOCAINE 5% PATCH TOPICAL SCH ×2 (00:40→07:47)
[2019-01-18] MEDS: ALBUTEROL NEBULIZED 2.5 MG/3 ML INHALATION PRN ×6 (02:31→23:28)
[2019-01-18] MEDS ORDERED: traMADol 50 MG TAB PO PRN (03:12)
[2019-01-18] MEDS: CALCIUM CARB-VIT D 500MG-200UN 1 EACH TAB PO SCH ×3 (07:46→18:21)
[2019-01-18] MEDS: ASPIRIN 81 MG PO SCH (07:46)
[2019-01-18] MEDS: HEPARIN SODIUM,PORCINE 5,000 UNIT/ML 1 ML VIAL SQ SCH ×2 (07:47→20:30)
[2019-01-18] MEDS: amLODIPine 10 MG TAB PO SCH (07:47)
[2019-01-18] MEDS: DOXYCYCLINE 100 MG in SODIUM CHLORIDE 0.9% 100 ML IVPB SCH ×2 (07:48→20:30)
[2019-01-18] MEDS: FAMOTIDINE 20 MG/2 ML VIAL IV SCH (07:48)
[2019-01-18] MEDS: METHIMAZOLE 5 MG TAB PO SCH (07:49)
[2019-01-18] MEDS: risperiDONE 0.25 MG TAB PO SCH ×2 (07:49→20:29)
[2019-01-18] MEDS: MONTELUKAST 10 MG TAB PO SCH (07:49)
[2019-01-18] MEDS: METOPROLOL SUCCINATE (ER) 50 MG TAB.ER.24H PO SCH (07:49)
[2019-01-18 07:54] LABS: Basophils % (A) 0 %; Eosinophils # (A) 0.1 k/uL (0-0.7); Eosinophils % (A) 2 %; HCT 28.8 % (34.0-46.0); HGB 9.2 gm/dL (11.4-16.0); Hypochromasia Slight; Lymphocytes # (A) 0.4 k/uL (1.0-4.8); Lymphocytes % (A) 8 %; MCH 28.8 pg (25.0-35.0); MCHC 31.9 g/dL (31.0-37.0); MCV 90.3 fL (80.0-100.0); Mean Platelet Volume 6.6; Monocytes # (A) 0.5 k/uL (0-1.0); Monocytes % (A) 9 %; Neutrophils # (A) 4.4 k/uL (1.3-7.7); Neutrophils % (A) 79 %; Platelet Count 243 k/uL (150-450); RBC 3.19 m/uL (3.80-5.40); RDW 15.2 % (11.5-15.5); WBC 5.6 k/uL (3.8-10.6)
--- NOTE | 2019-01-18 08:08 | P.HPIM ---
History of Present Illness This is a pleasant 68 years old female with past medical history of COPD/asthma, hyperlipidemia, hypertension, hypothyroidism, status post right nephrectomy which was donated to her son, Graves' disease thoracic aortic aneurysm history of lung cancer status post chemoradiotherapy. Patient is known to me as she was transferred yesterday from the psychiatric unit to the medical floor. She Was admitted to the hospital and psychiatric unit on 01/10 for signs symptoms of psychosis from emergency room. Patient has been evaluated by medical service before. Yesterday was more lethargic, associated with some cough and phlegm unknown color and dyspnea. Also patient was noticed to be hypoxic in the 60s- 70s percent. Patient is a there was a little bit drowsy, today is more week and she can give more clear history. Today mentioned for the first time that she fell about 2 weeks ago prior to admission when she was living Dr. Lopez office her regular diet tripped on the road and she fell on her left side however since then she has back pain radiating to the right leg. Her low back pain and looks like a chronic and stable however her radiation to the right side is an you. However patient denies any weakness, no abnormal sensation, no change in urine and she controls her urine and bowel movements. Lumbar x-ray was done, showing slight scoliotic curvature at L2-L3 with mild to moderate compression fracture at L1. Her ibuprofen is already stopped. Ultram was started yesterday but causes stomach upset and she could not tolerate it. Patient was transferred to the general medical floor for COPD exacerbation and respiratory failure with acute kidney injury. Patient was in the psychiatric [facility] for site causes and hallucination which looks like subsided and cleared by psychiatrist for the transfer. Overnight patient has only one episode of hallucination. No more dilution of hallucination this morning. Vitas looks stable and patient is been afebrile for more than 5 days although she had low-grade fever on admission. Yesterday Labs reviewed showing no leukocytosis, hemoglobin stable at 9.1, acute kidney injury with creatinine 1.4, baseline 0.9-1.0, hemoglobin A1c is 5.4%, cholesterol slightly elevated at 212, TSH 1.2. Urinalysis is suspicious for infection with large leukocyte esterase. Urine culture is growing gram-negative bacilli more than 100,000 units. Chest x-ray from showing increased opacity in the right middle lobe to the lower lobe was sent from prior exam, suspicious for infection versus edema or atelectasis. Repeat labs from today are pending Review of Systems CONSTITUTIONAL: No fever HEENT: No recent visual problems or hearing problems. Denied any sore throat. CARDIOVASCULAR: No orthopnea, PND, no palpitations, no syncope. PULMONARY: no hemoptysis. GASTROINTESTINAL: No diarrhea, no nausea, no vomiting, no abdominal pain. Norm oactive bowel sounds. NEUROLOGICAL: No headaches, no weakness, no numbness. HEMATOLOGICAL: Denies any bleeding or petechiae. GENITOURINARY: Denies any burning micturition, frequency, or urgency. MUSCULOSKELETAL/RHEUMATOLOGICAL: Denies any joint pain, swelling ENDOCRINE: Denies any polyuria or polydipsia. Past Medical History Past Medical History: Asthma, Cancer, COPD, GERD/Reflux, Hyperlipidemia, Hypertension, Pneumonia, Renal Disease, Thyroid Disorder Additional Past Medical History / Comment(s): Pt recently admitted to [facility] on 12/23/18 with psychosis, compression fracture L1, pneumonia, hypoxia, respiratory failure, acute on chronic COPD, UTI/kidney injury. 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 History of Any Multi-Drug Resistant Organisms: None Reported Past Surgical History: Cholecystectomy, Hysterectomy, Orthopedic Surgery Additional Past Surgical History / Comment(s): Bronchoscopy with lung bx, pulmonary stent, EGD, colonoscopy/polypectomy with bleed, R nephrectomy 1981, 2011 laparotomy with lysis of adhesions, L shoulder and collar bone surgery, total hysterectomy, cataract surg-lens implants. Past Anesthesia/Blood Transfusion Reactions: No Reported Reaction Additional Past Anesthesia/Blood Transfusion Reaction / Comment(s): Pt has never received blood. Smoking Status: Former smoker - Past Family History Father Family Medical History: Cancer Additional Family Medical History / Comment(s): Pancreatic cancer and passed when he was 58 Mother Family Medical History: No Reported History Additional Family Medical History / Comment(s): Alcohol abuse Medications and Allergies Home Medications Medication Instructions Recorded Confirmed Type ALPRAZolam [Xanax] 0.5 mg PO BID PRN 07/25/18 01/17/19 History Methimazole [Tapazole] 5 mg PO DAILY 07/25/18 01/17/19 History Albuterol Sulfate [Proair Hfa] 2 puff INHALATION RT-Q4H PRN 08/31/18 01/17/19 History Atorvastatin [Lipitor] 10 mg PO HS #30 tab 08/31/18 01/17/19 Rx Aspirin EC [Ecotrin Low Dose] 81 mg PO DAILY 09/21/18 01/17/19 History Montelukast [Singulair] 10 mg PO DAILY 09/21/18 01/17/19 History Ondansetron HCl [Zofran] 8 mg PO Q6HR PRN 09/21/18 01/17/19 History amLODIPine [Norvasc] 10 mg PO DAILY #30 tab 10/16/18 01/17/19 Rx Arformoterol Tartrate [Brovana] 15 mcg INHALATION RT-BID 01/09/19 01/17/19 History DULoxetine HCL [Cymbalta] 30 mg PO DAILY 01/09/19 01/17/19 History DULoxetine HCL [Cymbalta] 60 mg PO DAILY 01/09/19 01/17/19 History HYDROcodone/APAP 10-325MG [Ringsted 1 tab PO Q6H PRN 01/09/19 01/17/19 History 10-325] Metoprolol Succinate (ER) [Toprol 50 mg PO DAILY 01/09/19 01/17/19 History Xl] Temazepam [Restoril] 15 mg PO HS PRN 01/09/19 01/17/19 History risperiDONE [RisperDAL] 0.25 mg PO BID 01/09/19 01/17/19 History Allergies Allergy/AdvReac Type Severity Reaction Status Date / Time Influenza Virus Vaccines Allergy Dyspnea Verified 01/17/19 16:07 hydromorphone [From Dilaudid] AdvReac Hallucinati Verified 01/17/19 16:07 ons Physical Exam Vitals: Vital Signs Temp Pulse Pulse Resp BP Pulse Ox 01/18/19 05:32 97.9 F 98 20 127/75 96 01/18/19 02:42 91 18 01/18/19 02:31 90 18 01/17/19 23:10 90 18 01/17/19 22:59 95 18 01/17/19 20:45 97.3 F L 90 20 133/79 93 L 01/17/19 20:08 90 18 01/17/19 19:57 89 18 01/17/19 16:00 86 16 01/17/19 15:20 97.7 F 86 16 110/68 93 L Intake and Output 01/17/19 01/18/19 01/18/19 22:59 06:59 14:59 Intake Total 600 Balance 600 Intake: Intake, IV Titration 600 Amount Doxycycline 100 mg In 100 Sodium Chloride 0.9% 100 ml @ 100 mls/hr IVPB Q12HR ALEX Rx#:[id number] Sodium Chloride 0.9% 1, 500 000 ml @ 75 mls/hr IV . [id number] ALEX Rx#:[id number] Other: Voiding Method Bedside Commode # Voids 2 Weight 64 kg -GENERAL: The patient is alert and oriented 3, mildly tachypneic. HEENT: Pupils are round and equally reacting to light. EOMI. No scleral icterus. No conjunctival pallor. Normocephalic, atraumatic. No pharyngeal erythema. No thyromegaly. CARDIOVASCULAR: S1 and S2 present. No murmurs, rubs, or gallops. -PULMONARY: Chest is clear to auscultation, bilateral scattered wheezing on both sides with prolonged expiratory phase ABDOMEN: Soft, nontender, nondistended, normoactive bowel sounds. No palpable organomegaly. -MUSCULOSKELETAL: No joint swelling or deformity. Low back tenderness EXTREMITIES: No cyanosis, clubbing, or pedal edema. NEUROLOGICAL: Gross neurological examination did not reveal any focal deficits. Cranial nerves are grossly intact, strength is 5/5 in all extremities. Sensation is intact. Meningeal signs are absent SKIN: No rashes. Results CBC & Chem 7: 01/18/19 07:23 Labs: Abnormal Lab Results - Last 24 Hours (Table) 01/18/19 Range/Units 07:23 RBC 3.19 L (3.80-5.40) m/uL Hgb 9.2 L (11.4-16.0) gm/dL Hct 28.8 L (34.0-46.0) % Lymphocytes # 0.4 L (1.0-4.8) k/uL Thrombosis Risk Factor Assmnt - Choose All That Apply Any of the Below Risk Factors Present?: Yes Each Factor Represents 1 point: Abnormal pulmonary function (COPD), Serious lung disease incl. pneumonia (< 1month) Other Risk Factors: Yes Each Risk Factor Represents 2 Points: Age 61-74 years, Malignancy Other congenital or acquired thrombophilia - If yes, enter type in comment: No Thrombosis Risk Factor Assessment Total Risk Factor Score: 6 Thrombosis Risk Factor Assessment Level: High Risk Assessment and Plan Assessment: Pneumonia, possible community-acquired Acute hypoxic respiratory failure Acute COPD exacerbation Acute urinary tract infection Acute kidney injury Low back injury secondary to recent falls, 2 weeks prior to admission Low back pain radiating to the right thigh. Psychosis and other sac illnesses, management as per psychiatry team Compression of fracture at L1 without evidence of acute fracture or dislocation History of small cell lung cancer, status post chemoradiotherapy Chronic hypoxic respiratory failure on 4 L oxygen at home History of right nephrectomy, donated to her son Hypothyroidism Hypertension Hyperlipidemia History of thoracic aortic aneurysm 4.8 cm Chronic diverticulosis Chronic bilateral tinnitus Plan: This is a pleasant 68 years old female admitted with COPD, pneumonia and UTI. Continue with antibiotics, ceftriaxone and doxycycline for pneumonia and UTI. Follow-up culture results. Continue with bronchodilator, steroids and oxygen when necessary. Continue with lidocaine patch and pain management. Continue with gentle hydration. Continue with calcium and vitamin D. We will call orthopedic consult, increase her pain medication. DC Ultram for stomach upset and start her on Ring[place] and lidocaine patch. Labs and medication were reviewed.. Continue same treatment. Continue with symptomatic treatment. Resume home medication. Monitor lytes and vitals. DVT and GI prophylaxis. Further recommendations of the clinical course of the patient DVT prophylaxis: Subcutaneous heparin GI Prophylaxis: Pepcid Prognosis is guarded Discussed with the staff
[2019-01-18 08:16] LABS: Calcium 9.8 mg/dL (8.4-10.2); Potassium 3.4 mmol/L (3.5-5.1)
[2019-01-18] MEDS ORDERED: DULoxetine HCL 30 MG CAPSULE.DR PO SCH ×2 (09:00)
--- NOTE | 2019-01-18 10:08 | P.CNOR ---
History of Present Illness - HPI Consult date: 01/18/19 Consult reason: low back pain History of present illness: Patient is seen and examined at bedside. Simple and 68-year-old female with a long medical history and we are being consulted regards to her low back pain and findings of L1 compression fracture. The patient presents to the regular floor from the mental health unit where she was admitted regards to hallucinations.Hallucinations have apparently subsided to a decent degree. She also has history of COPD asthma hypothyroidism hypertension hyperlipidemia and history of nephrectomy when she donated her kidney to her son. She also has history of lung cancer in this post chemoradiation therapy. She says she has been having back pain for the past several years but it got worse over the past 2 weeks after a fall on the grass. She says she was able ge t up and get around. She says she has pain toward her left groin since that time. She has difficulty with putting weight on her left leg. She says her pain in her back has been present for quite a while but flared up after that fall. She denies any new weakness. She denies any numbness tingling or lower extremity is. She denies changes in bowel bladder function. Review of Systems As stated per HPI. Denies chest pain chest breath. Denies any nausea vomiting. Denies any bowel or bladder function changes. She says when she gets up she has pain at her left groin. She is not painful when she is sitting and when she moves her leg. Past Medical History Past Medical History: Asthma, Cancer, COPD, GERD/Reflux, Hyperlipidemia, Hypertension, Pneumonia, Renal Disease, Thyroid Disorder Additional Past Medical History / Comment(s): Pt recently admitted to [facility] on 12/23/18 with psychosis, compression fracture L1, pneumonia, hypoxia, respiratory failure, acute on chronic COPD, UTI/kidney injury. 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 History of Any Multi-Drug Resistant Organisms: None Reported Past Surgical History: Cholecystectomy, Hysterectomy, Orthopedic Surgery Additional Past Surgical History / Comment(s): Bronchoscopy with lung bx, pulmonary stent, EGD, colonoscopy/polypectomy with bleed, R nephrectomy 1981, 2011 laparotomy with lysis of adhesions, L shoulder and collar bone surgery, total hysterectomy, cataract surg-lens implants. Past Anesthesia/Blood Transfusion Reactions: No Reported Reaction Additional Past Anesthesia/Blood Transfusion Reaction / Comm: Pt has never received blood. Smoking Status: Former smoker - Past Family History Father Family Medical History: Cancer Additional Family Medical History / Comment(s): Pancreatic cancer and passed when he was 58 Mother Family Medical History: No Reported History Additional Family Medical History / Comment(s): Alcohol abuse Medications and Allergies Home Medications Medication Instructions Recorded Confirmed Type ALPRAZolam [Xanax] 0.5 mg PO BID PRN 07/25/18 01/17/19 History Methimazole [Tapazole] 5 mg PO DAILY 07/25/18 01/17/19 History Albuterol Sulfate [Proair Hfa] 2 puff INHALATION RT-Q4H PRN 08/31/18 01/17/19 History Atorvastatin [Lipitor] 10 mg PO HS #30 tab 08/31/18 01/17/19 Rx Aspirin EC [Ecotrin Low Dose] 81 mg PO DAILY 09/21/18 01/17/19 History Montelukast [Singulair] 10 mg PO DAILY 09/21/18 01/17/19 History Ondansetron HCl [Zofran] 8 mg PO Q6HR PRN 09/21/18 01/17/19 History amLODIPine [Norvasc] 10 mg PO DAILY #30 tab 10/16/18 01/17/19 Rx Arformoterol Tartrate [Brovana] 15 mcg INHALATION RT-BID 01/09/19 01/17/19 History DULoxetine HCL [Cymbalta] 30 mg PO DAILY 01/09/19 01/17/19 History DULoxetine HCL [Cymbalta] 60 mg PO DAILY 01/09/19 01/17/19 History HYDROcodone/APAP 10-325MG [[place] 1 tab PO Q6H PRN 01/09/19 01/17/19 History 10-325] Metoprolol Succinate (ER) [Toprol 50 mg PO DAILY 01/09/19 01/17/19 History Xl] Temazepam [Restoril] 15 mg PO HS PRN 01/09/19 01/17/19 History risperiDONE [RisperDAL] 0.25 mg PO BID 01/09/19 01/17/19 History Allergies Allergy/AdvReac Type Severity Reaction Status Date / Time Influenza Virus Vaccines Allergy Dyspnea Verified 01/17/19 16:07 hydromorphone [From Dilaudid] AdvReac Hallucinati Verified 01/17/19 16:07 ons Physical Examination Osteopathic Statement: *. No significant issues noted on an osteopathic structural exam other than those noted in the History and Physical/Consult. - Hip left Gait: other (At her left hip she is able to the leg above bed 5 out of 5 muscle strength with good strength against resistance. There is no pain with internal rotation. There is no pain with palpation. There is no tenderness at her pelvis. She tries to stand up she has significant limp at the left leg due to pain in her groin.) - L Spine: dermatomal strength & reflexes bilateral Strength: hip flexion: 5/5 (At her low back she did area is clear. There is no tenderness to palpation. She has good range of motion through her low back.) Results - Labs Labs: Abnormal Lab Results - Last 24 Hours (Table) 01/18/19 01/18/19 Range/Units 07:23 07:23 RBC 3.19 L (3.80-5.40) m/uL Hgb 9.2 L (11.4-16.0) gm/dL Hct 28.8 L (34.0-46.0) % Lymphocytes # 0.4 L (1.0-4.8) k/uL Potassium 3.4 L (3.5-5.1) mmol/L BUN 32 H (7-17) mg/dL Creatinine 1.06 H (0.52-1.04) mg/dL H & H 01/18/19 Range/Units 07:23 Hgb 9.2 L (11.4-16.0) gm/dL Hct 28.8 L (34.0-46.0) % Result Diagrams: 01/18/19 07:23 01/18/19 07:23 - Diagnostic results Lumbar AP/lateral x-ray: report reviewed, image reviewed (X-rays of her lumbar spine reviewed. There is evidence of a vertebral compression fracture at L1 with approximately 50% height loss. Appears to be chronic. The disc heights adequately maintained.), other (I also reviewed prior imaging including computed tomography scan from August which shows the L1 compression fracture stable and intact at that point) Assessment and Plan Assessment: Chronic low back pain with some mild exacerbation due to a fall 2 weeks ago left groin pain likely due to groin strain due to fall 2 weeks ago Multiple medical issues and history of multiple illness being managed with medicine Plan: Chronic low back pain with some mild exacerbation due to a fall 2 weeks ago left groin pain likely due to groin strain due to fall 2 weeks ago Multiple medical issues and history of multiple illness being managed with medicine The patient has a chronic L1 compression fracture which appears stable. I do not see any evidence of any new fractures or instability. She does not need any bracing for her back. She may start to mobilize with physical therapy. We will go ahead and get a new x-ray of her pelvis and hip to evaluate left going but I believe this is myofascial in nature and should resolve expectantly. If x-rays are pelvis show any evidence of fracture she continue with conservative treatment and therapy and may follow up on an as-needed basis.
--- NOTE | 2019-01-18 11:10 | XR ---
EXAMINATION TYPE: XR Hip LT and AP Pelvis DATE OF EXAM: 01/18/2019 COMPARISON: NONE HISTORY: Fall injury 2 weeks ago with pelvic and left hip pain. TECHNIQUE: A single AP view of the pelvis is obtained. Two views of the left hip are obtained. FINDINGS: There is no acute fracture/dislocation evident in the pelvis. Suboptimal evaluation of sac roiliac joints due to lucency from overlying bowel gas. Osseous structures are demineralized also whi ch is noted to lower radiographic sensitivity. The overlying soft tissue appears unremarkable. There is [id number] axial joint space loss and left hip greater than in the right hip. No foca l lytic or sclerotic lesion seen in the proximal left femur. The overlying soft tissue is unremarkab le. IMPRESSION: There is no acute fracture or dislocation in the pelvis or left hip.
[2019-01-18] MEDS: HYDROcodone/APAP 5-325MG 1 EACH TAB PO PRN ×2 (11:38→19:10)
[2019-01-18] MEDS: SODIUM CHLORIDE 0.9% 1,000 ML IV SCH ×2 (11:40→20:36)
[2019-01-18] MEDS ORDERED: Potassium Replacement Protocol 1 EACH MISC MISCELLANE PRN (12:37)
[2019-01-18] MEDS: FORMOTEROL FUMARATE 20 MCG/2 ML NEBU INHALATION SCH (18:05)
[2019-01-18] MEDS: POTASSIUM CHLORIDE ER 20 MEQ TAB.ER PO SCH ×2 (18:21→18:26)
[2019-01-18] MEDS: methylPREDNISolone SOD SUCCI 40 MG/ML 1 ML VIAL IV SCH ×2 (18:22→23:58)
[2019-01-18] MEDS: SENNOSIDES 8.6 MG TAB PO PRN (19:12)
[2019-01-18 20:29] LABS: Glucose,Whole Blood 148 mg/dL (75-99)
[2019-01-18] MEDS: ATORVASTATIN 10 MG TAB PO SCH (20:29)
[2019-01-18 21:30] LABS: Glucose,Whole Blood 161 mg/dL (75-99)
[2019-01-18] MEDS: INSULIN ASPART (NovoLOG) 100 UNIT/ML VIAL SQ SCH (21:31)
--- NOTE | 2019-01-18 22:46 | CONS ---
CONSULTATION DATE OF SERVICE/ DICTATION: 01/18/2019 IDENTIFYING DATA: This patient is a 68-year-old female who was admitted to the medical floor from the mental health unit. HISTORY OF PRESENT ILLNESS: The patient was admitted to the mental health unit originally due to acute symptoms of psychosis. She had been experiencing visual hallucinations that were causing her behavioral dysfunction. She had felt that people were coming into her apartment. She expressed experiencing visual hallucinations of children, her and son. She states that she saw a man in her closet. The patient was admitted to the mental health unit on 01/10/2019. We proceeded to address the symptoms by increasing the Risperdal that she had already been taking. We were looking for other etiologies as well. During the course of the hospitalization, it was discovered that she had a urinary tract infection, which just started to be treated. She did experience an episode of respiratory distress and she had a desaturation of her oxygen. The A-team was called. Chest x-ray revealed likely pneumonia. She was transferred to the medical floor from our unit after I conferred with Dr. Avery. Yesterday, the patient had described no hallucinations in the morning and had been doing quite well psychiatrically speaking. Today upon entering the room, she is observed holding an active loud conversation with hallucinations. As I enter the room, she states that there is an individual sitting on her bed and a female sitting in the room as well. She does not have a history of baseline psychosis. We were entertaining the theory that the patient was experiencing a delirium. Naturally, could be due to the urinary tract infection and of course the more recently diagnosed pneumonia. She had been experiencing physical pain. Another concern was the fact that she was prescribed opiates with benzodiazepines as an outpatient. She did relay some history that the hallucinations seem better when she did not use the opiates. We tried to refrain from using those on the mental health unit, but her back pain was severe. Tramadol was tried, but she felt it was ineffective and made her nauseous. On the medical floor, she has been placed back on Xanax, [place], Restoril. PAST PSYCHIATRIC HISTORY: This is her first inpatient psychiatric admission. No history of suicide attempts. She had recently seen Dr. Huggins and was placed on Risperdal. Her Cymbalta was increased to 90 mg daily. She had previously been on Celexa and Wellbutrin. PAST MEDICAL HISTORY: History of small cell lung cancer status post radiation and chemotherapy, history of hyperthyroidism, hypertension, hyperlipidemia. ALLERGIES: HYDROMORPHONE. CHEMICAL DEPENDENCY HISTORY: No reported use of alcohol, marijuana, or illicit drugs. SOCIAL HISTORY: The patient is 68 years old. She is as of 2018. She resides at [facility] in the non assisted living side. 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 She has 4 children, 2 brothers, 2 sisters. She is originally from [place]. No history of service. No legal history reported. MENTAL STATUS EXAM: The patient is a female appearing her stated age. She has short kapoor hair. She is dressed in hospital attire. She is wearing nasal cannula oxygen. Upon entering the room, she is actively conversing with hallucinations in a loud fashion. When provided reality orientation, she is able to briefly except that no one else is there, but those symptoms seem to return. She is reporting no thoughts of harming herself or harming others. She states she is troubled by the visions that she is experiencing. She demonstrates no verbal or physical aggressiveness during our interaction. She is oriented to self, being in [facility]. She is able to name the correct month and year. She demonstrates no involuntary repetitive movements. Affect is constricted. Thought process can be circumstantial, mildly tangential at times. IMPRESSIONS: 1. Delirium with psychosis. 2. History of major depressive disorder. PLAN: The patient will continue receiving medical treatment for her urinary tract infection, her pneumonia and recent acute renal failure. I will retitrate the Risperdal to 0.25 mg in the morning, 1.25 mg at bedtime. We will reduce the Cymbalta again to 60 mg daily. I would recommend no benzodiazepines at this time, especially since she is going to be using [place] for pain management. The Xanax and Restoril were discontinued. We will look for the psychiatric symptoms to improve as she continues to be treated for her infections. We will continue to follow her while medically admitted. MMODL / IJN: [id number] /
[2019-01-19 07:18] LABS: Glucose,Whole Blood 175 mg/dL (75-99)
[2019-01-19] MEDS: ALBUTEROL NEBULIZED 2.5 MG/3 ML INHALATION PRN ×4 (08:14→20:10)
[2019-01-19] MEDS: FORMOTEROL FUMARATE 20 MCG/2 ML NEBU INHALATION SCH ×4 (08:14→20:10)
[2019-01-19] MEDS ORDERED: FAMOTIDINE 20 MG TAB PO SCH (09:00)
[2019-01-19] MEDS: LIDOCAINE 5% PATCH TOPICAL SCH (09:05)
[2019-01-19] MEDS: DULoxetine HCL 60 MG CAPSULE.DR PO SCH (09:06)
[2019-01-19] MEDS: ASPIRIN 81 MG PO SCH (09:06)
[2019-01-19] MEDS: CALCIUM CARB-VIT D 500MG-200UN 1 EACH TAB PO SCH ×3 (09:06→16:36)
[2019-01-19] MEDS: HEPARIN SODIUM,PORCINE 5,000 UNIT/ML 1 ML VIAL SQ SCH ×2 (09:06→23:45)
[2019-01-19] MEDS: amLODIPine 10 MG TAB PO SCH (09:06)
[2019-01-19] MEDS: methylPREDNISolone SOD SUCCI 40 MG/ML 1 ML VIAL IV SCH ×2 (09:06→16:35)
[2019-01-19] MEDS: INSULIN ASPART (NovoLOG) 100 UNIT/ML VIAL SQ SCH ×4 (09:06→23:45)
[2019-01-19] MEDS: METOPROLOL SUCCINATE (ER) 50 MG TAB.ER.24H PO SCH (09:06)
[2019-01-19] MEDS: risperiDONE 0.25 MG TAB PO SCH ×2 (09:07→20:09)
[2019-01-19] MEDS: METHIMAZOLE 5 MG TAB PO SCH (09:07)
[2019-01-19] MEDS: MONTELUKAST 10 MG TAB PO SCH (09:07)
[2019-01-19] MEDS: HYDROcodone/APAP 5-325MG 1 EACH TAB PO PRN ×2 (09:08→19:17)
[2019-01-19 09:29] LABS: Calcium 10.5 mg/dL (8.4-10.2)
[2019-01-19 09:30] LABS: Basophils % (A) 0 %; Eosinophils % (A) 1 %; HCT 29.4 % (34.0-46.0); HGB 9.3 gm/dL (11.4-16.0); Hypochromasia Slight; Lymphocytes # (A) 0.1 k/uL (1.0-4.8); Lymphocytes % (A) 3 %; MCH 28.2 pg (25.0-35.0); MCHC 31.7 g/dL (31.0-37.0); MCV 88.9 fL (80.0-100.0); Mean Platelet Volume 6.6; Monocytes # (A) 0.1 k/uL (0-1.0); Monocytes % (A) 2 %; Neutrophils # (A) 3.8 k/uL (1.3-7.7); Neutrophils % (A) 95 %; Platelet Count 260 k/uL (150-450); RDW 14.9 % (11.5-15.5)
[2019-01-19] MEDS: DOXYCYCLINE 100 MG in SODIUM CHLORIDE 0.9% 100 ML IVPB SCH (09:47)
[2019-01-19] MEDS ORDERED: Potassium Replacement Protocol 1 EACH MISC MISCELLANE PRN (10:25)
[2019-01-19] MEDS ORDERED: POTASSIUM CHLORIDE ER 20 MEQ TAB.ER PO SCH (11:00)
[2019-01-19 11:38] LABS: Glucose,Whole Blood 152 mg/dL (75-99)
--- NOTE | 2019-01-19 16:00 | P.PN ---
Progress Note - Text Progress Note Date: 01/19/19 Interval History: Patient is a 68-year-old female being seen for follow-up to a consultation in coverage for Dr. Portillo. Patient was sleeping in her room, I awakened the patient she stated that the visual hallucinations are less today. Patient states that she doesn't want to leave her room because she is afraid that the people she is seeing will hit her. Patient denied any suicidal or homicidal ideation. Patient then returned to sleep stating that she wanted to take a nap. Mental Status: Patient is lying in a hospital bed, she has oxygen on and took a minute or 2 to arouse the patient. Patient stated that the visual hallucinations are slightly less, she stated she is afraid to leave her room because they may hit her and then asked if she could return to sleep. She denied any suicidal or homicidal ideation at this time. Patient had no other complaints at this time and fell back to sleep again. Assessment: Patient was transferred from the psychiatric unit to the medical floor yesterday her Risperdal was increased from 0.25 mg twice a day to 0.25 mg in the morning and 1.25 mg at bedtime. Patient's Xanax and Restoril were also discontinued and her Cymbalta was decreased to 60 mg from 90. Patient was sleeping when I went into the room on several occasions, needed to be aroused to speak with her and she stated that the visual hallucinations were less but still concerned that the people she saw me hit her. Patient then requested that she return to sleep area nursing spoke with me about sending the patient home with home health care, patient also was being considered for rehab services. Plan: Patient should continue on the Risperdal at the current dose of 0.25 mg and 1.25 mg at bedtime to see if they continue to decrease her visual hallucinations, patient was living in an assisted living facility on the non- assisted side and has no assistance was living independently at the time of her admission. Will reevaluate the patient tomorrow to see if her Risperdal needs to be adjusted, patient is not currently suicidal or homicidal and not acutely psychotic, she is having symptoms of a delirium with visual hallucinations was likely due to multiple etiologies, we'll continue to treat her visual hallucinations with Risperdal and consider an increase in her dose tomorrow if the visual hallucinations persist and are not continuing to improve. Patient now has a sitter in the room.
[2019-01-19] MEDS: SODIUM CHLORIDE 0.9% 1,000 ML IV SCH (16:36)
[2019-01-19 17:04] LABS: Glucose,Whole Blood 154 mg/dL (75-99)
[2019-01-19] MEDS ORDERED: predniSONE 20 MG TAB PO SCH (17:30)
--- NOTE | 2019-01-19 21:04 | P.PN ---
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 Patient is known to me as she was transferred yesterday from the psychiatric unit to the medical floor. She Was admitted to the hospital and psychiatric unit on 01/10 for signs symptoms of psychosis from emergency room. Patient has been evaluated by medical service before. Yesterday was more lethargic, associated with some cough and phlegm unknown color and dyspnea. Also patient was noticed to be hypoxic in the 60s- 70s percent. Patient is a there was a little bit drowsy, today is more week and she can give more clear history. Today mentioned for the first time that she fell about 2 weeks ago prior to admission when she was living Dr. Lopez office her regular diet tripped on the road and she fell on her left side however since then she has back pain radiating to the right leg. Her low back pain and looks like a chronic and stable however her radiation to the right side is an you. However patient denies any weakness, no abnormal sensation, no change in urine and she controls her urine and bowel movements. Lumbar x-ray was done, showing slight scoliotic curvature at L2-L3 with mild to moderate compression fracture at L1. Her ibuprofen is already stopped. Ultram was started yesterday but causes stomach upset and she could not tolerate it. Patient was transferred to the general medical floor for COPD exacerbation and respiratory failure with acute kidney injury. Patient was in the psychiatric [facility] for site causes and hallucination which looks like subsided and cleared by psychiatrist for the transfer. Overnight patient has only one episode of hallucination. No more dilution of hallucination this morning. Vitas looks stable and patient is been afebrile for more than 5 days although she had low-grade fever on admission. Yesterday Labs reviewed showing no leukocytosis, hemoglobin stable at 9.1, acute kidney injury with creatinine 1.4, baseline 0.9-1.0, hemoglobin A1c is 5.4%, cholesterol slightly elevated at 212, TSH 1.2. Urinalysis is suspicious for infection with large leukocyte esterase. Urine culture is growing gram-negative bacilli more than 100,000 units. Chest x-ray from showing increased opacity in the right middle lobe to the lower lobe was sent from prior exam, suspicious for infection versus edema or atelectasis. Repeat labs from today are pending 01/19/2019 Patient is awake oriented, her breathing is quiet, she stated that she is on 4 L oxygen at home and that she follow up with Dr. santillan in the outpatient setting. she with mild dyspnea , No chest pain occasional cough only. Patient thinks her breathing is close to her baseline. She saturating 94-97 on 4 L. No change in urine or bowel habits. No dysuria. No fever. Physical therapy recommended subacute rehab versus home health care. Patient has some memory lapses for example she thinks she fell 2 weeks ago and yesterday when actually she did not while in the hospital as confirmed by staff. pt still with hallucination and psych service are following the pt. pt later on today she refused iv antibiotic and therapy , we changed her medication to ceftriaxone im and she still refused , we will start her on augmentin and oral doxycyclin and prednisone orally . repeat chest xray in the am for follow Objective - Vital Signs Vital signs: Vital Signs Temp 97.9 F 01/18/19 21:00 Pulse 96 01/18/19 23:40 Resp 24 01/18/19 21:00 BP 147/83 01/18/19 21:00 Pulse Ox 94 L 01/18/19 21:00 Intake & Output 01/18/19 01/19/19 01/19/19 18:59 06:59 18:59 Intake Total 240 650 Balance 240 650 Intake: Intake, IV Titration 650 Amount Doxycycline 100 mg In 100 Sodium Chloride 0.9% 100 ml @ 100 mls/hr IVPB Q12HR ALEX Rx#:[id number] Sodium Chloride 0.9% 1, 550 000 ml @ 50 mls/hr IV . Q20H ALEX Rx#:[id number] Oral 240 Other: Voiding Method Bedside Commode Bedside Commode # Voids 3 3 # Bowel Movements 1 - Exam -GENERAL: The patient is alert and oriented 3, mildly tachypneic. HEENT: Pupils are round and equally reacting to light. EOMI. No scleral icterus. No conjunctival pallor. Normocephalic, atraumatic. No pharyngeal erythema. No thyromegaly. CARDIOVASCULAR: S1 and S2 present. No murmurs, rubs, or gallops. -PULMONARY: Chest is clear to auscultation, bilateral wheezing are improving with current it entry ABDOMEN: Soft, nontender, nondistended, normoactive bowel sounds. No palpable organomegaly. -MUSCULOSKELETAL: No joint swelling or deformity. Low back tenderness EXTREMITIES: No cyanosis, clubbing, or pedal edema. NEUROLOGICAL: Gross neurological examination did not reveal any focal deficits. Cranial nerves are grossly intact, strength is 5/5 in all extremities. Sensation is intact. Meningeal signs are absent SKIN: No rashes. - Labs CBC & Chem 7: 01/19/19 08:24 01/19/19 08:24 Labs: Abnormal Lab Results - Last 24 Hours (Table) 01/18/19 01/18/19 01/18/19 Range/Units 07:23 07:23 20:28 RBC 3.19 L (3.80-5.40) m/uL Hgb 9.2 L (11.4-16.0) gm/dL Hct 28.8 L (34.0-46.0) % Lymphocytes # 0.4 L (1.0-4.8) k/uL Potassium 3.4 L (3.5-5.1) mmol/L BUN 32 H (7-17) mg/dL Creatinine 1.06 H (0.52-1.04) mg/dL POC Glucose (mg/dL) 148 H (75-99) mg/dL 01/18/19 Range/Units 21:29 RBC (3.80-5.40) m/uL Hgb (11.4-16.0) gm/dL Hct (34.0-46.0) % Lymphocytes # (1.0-4.8) k/uL Potassium (3.5-5.1) mmol/L BUN (7-17) mg/dL Creatinine (0.52-1.04) mg/dL POC Glucose (mg/dL) 161 H (75-99) mg/dL Microbiology - Last 24 Hours (Table) 01/17/19 18:23 Blood Culture - Preliminary Blood No Growth after 24 hours Assessment and Plan Assessment: Pneumonia, possible community-acquired Acute hypoxic respiratory failure Acute COPD exacerbation Acute urinary tract infection Acute kidney injury, resolved Low back injury secondary to recent falls, 2 weeks prior to admission Low back pain radiating to the right thigh. Psychosis and other sac illnesses, management as per psychiatry team Compression of fracture at L1 without evidence of acute fracture or dislocation History of small cell lung cancer, status post chemoradiotherapy Chronic hypoxic respiratory failure on 4 L oxygen at home History of right nephrectomy, donated to her son Hypothyroidism Hypertension Hyperlipidemia History of thoracic aortic aneurysm 4.8 cm Chronic diverticulosis Chronic bilateral tinnitus Plan: This is a pleasant 68 years old female admitted with COPD, pneumonia and UTI. Continue with antibiotics, change iv to oral antibiotic augmentin and doxycycline . change iv sterod to oral as pt is refusing iv. Follow-up culture results. Continue with bronchodilators, steroids and oxygen. Continue with lidocaine patch and pain management. Continue with gentle hydration. Continue with calcium and vitamin D. orthopedic consult recommended medical management. DC Ultram for stomach upset and start her on [place] and lidocaine patch. Labs and medication were reviewed.. Continue same treatment. Continue with symptomatic treatment. Resume home medication. Monitor lytes and vitals. DVT and GI prophylaxis. Further recommendations of the clinical course of the patient DVT prophylaxis: Subcutaneous heparin GI Prophylaxis: Pepcid Prognosis is guarded Discussed with the staff
[2019-01-19] MEDS ORDERED: HALOPERIDOL LACTATE 5 MG/ML 1 ML VIAL IM PRN (21:07)
[2019-01-19 21:17] LABS: Glucose,Whole Blood 138 mg/dL (75-99)
[2019-01-19] MEDS ORDERED: LORazepam 2 MG/ML INJ IM STA (22:31)
[2019-01-19] MEDS: FAMOTIDINE 20 MG TAB PO SCH (22:39)
[2019-01-19] MEDS: AMOXIC-POT CLAV 875-125MG 1 EACH TAB PO SCH (23:45)
[2019-01-19] MEDS: ATORVASTATIN 10 MG TAB PO SCH (23:45)
[2019-01-19] MEDS: DOXYCYCLINE 100 MG CAP PO SCH (23:45)
--- NOTE | 2019-01-20 07:08 | XR ---
EXAMINATION TYPE: XR chest 1V DATE OF EXAM: 01/20/2019 HISTORY: follow up . REFERENCE: Previous study dated 01/17/2019. FINDINGS: There has been internal fixation of the left clavicle. The heart is enlarged. There is increased opacity at the left lung base which may represent atelectas is or pneumonia. There is peribronchial cuffing. There is mild vascular congestion. No definite pleur al fluid is seen. IMPRESSION: CONFLUENT OPACITY IN THE LEFT LUNG BASE MAY REPRESENT ATELECTASIS OR PNEUMONIA.
[2019-01-20] MEDS: ALBUTEROL NEBULIZED 2.5 MG/3 ML INHALATION PRN ×4 (07:40→20:22)
[2019-01-20] MEDS: FORMOTEROL FUMARATE 20 MCG/2 ML NEBU INHALATION SCH ×3 (08:15→20:22)
[2019-01-20] MEDS ORDERED: predniSONE 10 MG TAB PO SCH (09:00)
[2019-01-20] MEDS: CALCIUM CARB-VIT D 500MG-200UN 1 EACH TAB PO SCH ×3 (09:15→18:02)
[2019-01-20] MEDS: DULoxetine HCL 60 MG CAPSULE.DR PO SCH (09:16)
[2019-01-20] MEDS: risperiDONE 0.25 MG TAB PO SCH (09:16)
[2019-01-20] MEDS: METOPROLOL SUCCINATE (ER) 50 MG TAB.ER.24H PO SCH (09:17)
[2019-01-20] MEDS: METHIMAZOLE 5 MG TAB PO SCH (09:17)
[2019-01-20] MEDS: DOXYCYCLINE 100 MG CAP PO SCH ×2 (09:17→21:48)
[2019-01-20] MEDS: FAMOTIDINE 20 MG TAB PO SCH ×2 (09:17→21:48)
[2019-01-20] MEDS: AMOXIC-POT CLAV 875-125MG 1 EACH TAB PO SCH ×2 (09:17→21:47)
[2019-01-20] MEDS: amLODIPine 10 MG TAB PO SCH (09:17)
[2019-01-20] MEDS: MONTELUKAST 10 MG TAB PO SCH (09:17)
[2019-01-20] MEDS: LIDOCAINE 5% PATCH TOPICAL SCH (09:18)
[2019-01-20] MEDS: HEPARIN SODIUM,PORCINE 5,000 UNIT/ML 1 ML VIAL SQ SCH ×2 (09:19→21:48)
[2019-01-20] MEDS: ASPIRIN 81 MG PO SCH (09:19)
[2019-01-20] MEDS ORDERED: predniSONE 10 MG TAB PO STA (09:52)
--- NOTE | 2019-01-20 10:01 | P.PN ---
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 Patient is known to me as she was transferred yesterday from the psychiatric unit to the medical floor. She Was admitted to the hospital and psychiatric unit on 01/10 for signs symptoms of psychosis from emergency room. Patient has been evaluated by medical service before. Yesterday was more lethargic, associated with some cough and phlegm unknown color and dyspnea. Also patient was noticed to be hypoxic in the 60s- 70s percent. Patient is a there was a little bit drowsy, today is more week and she can give more clear history. Today mentioned for the first time that she fell about 2 weeks ago prior to admission when she was living Dr. Lopez office her regular diet tripped on the road and she fell on her left side however since then she has back pain radiating to the right leg. Her low back pain and looks like a chronic and stable however her radiation to the right side is an you. However patient denies any weakness, no abnormal sensation, no change in urine and she controls her urine and bowel movements. Lumbar x-ray was done, showing slight scoliotic curvature at L2-L3 with mild to moderate compression fracture at L1. Her ibuprofen is already stopped. Ultram was started yesterday but causes stomach upset and she could not tolerate it. Patient was transferred to the general medical floor for COPD exacerbation and respiratory failure with acute kidney injury. Patient was in the psychiatric [facility] for site causes and hallucination which looks like subsided and cleared by psychiatrist for the transfer. Overnight patient has only one episode of hallucination. No more dilution of hallucination this morning. Vitas looks stable and patient is been afebrile for more than 5 days although she had low-grade fever on admission. Yesterday Labs reviewed showing no leukocytosis, hemoglobin stable at 9.1, acute kidney injury with creatinine 1.4, baseline 0.9-1.0, hemoglobin A1c is 5.4%, cholesterol slightly elevated at 212, TSH 1.2. Urinalysis is suspicious for infection with large leukocyte esterase. Urine culture is growing gram-negative bacilli more than 100,000 units. Chest x-ray from showing increased opacity in the right middle lobe to the lower lobe was sent from prior exam, suspicious for infection versus edema or atelectasis. Repeat labs from today are pending 01/19/2019 Patient is awake oriented, her breathing is quiet, she stated that she is on 4 L oxygen at home and that she follow up with Dr. santillan in the outpatient setting. she with mild dyspnea , No chest pain occasional cough only. Patient thinks her breathing is close to her baseline. She saturating 94-97 on 4 L. No change in urine or bowel habits. No dysuria. No fever. Physical therapy recommended subacute rehab versus home health care. Patient has some memory lapses for example she thinks she fell 2 weeks ago and yesterday when actually she did not while in the hospital as confirmed by staff. pt still with hallucination and psych service are following the pt. pt later on today she refused iv antibiotic and therapy , we changed her medication to ceftriaxone im and she still refused , we will start her on augmentin and oral doxycyclin and prednisone orally . repeat chest xray in the am for follow 01/20/2019 Patient is awake and alert however she is somewhat disoriented she was educated yesterday, last evening patient had hallucination with sick reaming AND seen people and crawling on the floor, safety*has to be placed in the room and patient received cervix, medication including Ativan and Haldol. This morning patient is more calm sitting on the edge of the bed however she still confused. She is light tachypneic but denies chest pain, she has occasional coughing. She remains on her baseline of 4 L of oxygen via nasal cannula and she saturating 96%. Patient is afebrile. Patient refused labs this morning although trying to get them again. However labs from the last 2 days show no leukocytosis and hemoglobin stable. Patient looks a little bit dehydrated patient refusing IV medication or fluid. Her medication as worse to oral Augmentin, doxycycline and prednisone 40 mg daily, lower the dose of steroids in case she has effect on her psychosis. Psychiatric team are following the patient closely. We'll add Robaxin to have intermittent back pain. Also we'll resend UA. CONSTITUTIONAL: No fever1 HEENT: No recent visual problems or hearing problems. Denied any sore throat. CARDIOVASCULAR: no palpitations, no syncope. PULMONARY: no hemoptysis. GASTROINTESTINAL: No diarrhea, no nausea, no vomiting, no abdominal pain. Normoactive bowel sounds. NEUROLOGICAL: No headaches, no weakness, no numbness. HEMATOLOGICAL: Denies any bleeding or petechiae. GENITOURINARY: Denies any burning micturition, frequency, or urgency. MUSCULOSKELETAL/RHEUMATOLOGICAL: Denies any joint pain, swelling, or any muscle pain. ENDOCRINE: Denies any polyuria or polydipsia. Active Medications Generic Name Dose Route Start Last Admin Trade Name Freq PRN Reason Stop Dose Admin Acetaminophen 650 mg 01/17/19 17:43 Tylenol Tab PO Q6HR PRN Fever and/ or Mild Pain Hydrocodone Bitart/Acetaminophen 1 each 01/18/19 08:06 01/19/19 19:17 Carriere 5-325 PO 1 each Q8HR PRN Administration Pain Albuterol Sulfate 2.5 mg 01/17/19 17:24 01/20/19 07:40 Ventolin Nebulized INHALATION 2.5 mg RT-Q4H PRN Administration Shortness Of Breath Amlodipine Besylate 10 mg 01/18/19 09:00 01/20/19 09:17 Norvasc PO 10 mg DAILY ALEX Administration Amoxicillin/Clavulanate Potassium 1 each 01/19/19 21:00 01/20/19 09:17 Augmentin 875-125 PO 1 each Q12HR ALEX Administration Aspirin 81 mg 01/18/19 09:00 01/20/19 09:19 Aspirin PO Not Given DAILY ALEX Atorvastatin Calcium 10 mg 01/17/19 21:00 01/19/19 23:45 Lipitor PO Not Given HS REPLACED BY [facility] Calcium Carbonate 1 each 01/18/19 07:30 01/20/19 09:15 Oscal 500+D PO 1 each TID-W/MEALS ALEX Administration Doxycycline Monohydrate 100 mg 01/19/19 21:00 01/20/19 09:17 Vibramycin PO 100 mg BID ALEX Administration Duloxetine HCl 60 mg 01/19/19 09:00 01/20/19 09:16 Cymbalta PO 60 mg DAILY ALEX Administration Famotidine 20 mg 01/19/19 21:00 01/20/19 09:17 Pepcid PO 20 mg Q12HR ALEX Administration Formoterol Fumarate 20 mcg 01/19/19 08:00 01/20/19 09:05 Perforomist INHALATION Not Given RT-BID REPLACED BY [facility] Heparin Sodium (Porcine) 5,000 unit 01/17/19 21:00 01/20/19 09:19 Heparin SQ Not Given Q12HR ALEX Lidocaine 1 patch 01/17/19 20:30 01/20/19 09:18 Lidoderm TOPICAL 1 patch DAILY ALEX Administration Methimazole 5 mg 01/18/19 09:00 01/20/19 09:17 Tapazole PO 5 mg DAILY ALEX Administration Metoprolol Succinate 50 mg 01/18/19 09:00 01/20/19 09:17 Toprol Xl PO 50 mg DAILY ALEX Administration Miscellaneous Information 1 each 01/19/19 10:25 Potassium Per Protocol MISCELLANE DAILY PRN Per Protocol Protocol Montelukast Sodium 10 mg 01/18/19 09:00 01/20/19 09:17 Singulair PO 10 mg DAILY ALEX Administration Ondansetron HCl 8 mg 01/17/19 17:24 Zofran PO Q6HR PRN Nausea Prednisone 40 mg 01/21/19 09:00 PO DAILY ALEX Risperidone 0.25 mg 01/19/19 09:00 01/20/19 09:16 Risperdal PO 0.25 mg DAILY ALEX Administration Risperidone 1.25 mg 01/18/19 21:00 01/19/19 20:09 Risperdal PO 1.25 mg HS ALEX Administration Senna 8.6 mg 01/17/19 17:45 01/18/19 19:12 Senokot PO 8.6 mg BID PRN Administration Constipation Objective - Vital Signs Vital signs: Vital Signs Temp 98.3 F 01/20/19 06:33 Pulse 96 01/20/19 08:00 Resp 19 01/20/19 06:33 BP 152/96 01/20/19 06:33 Pulse Ox 5 L 01/20/19 06:33 Intake & Output 01/19/19 01/20/19 01/20/19 18:59 06:59 18:59 Intake Total 100 120 Balance 100 120 Intake: Intake, IV Titration 100 Amount Doxycycline 100 mg In 100 Sodium Chloride 0.9% 100 ml @ 100 mls/hr IVPB Q12HR ALEX Rx#:[id number] Oral 120 Other: Voiding Method Bedside Commode # Voids 3 1 - Exam -GENERAL: The patient is alert and oriented 1-2, mildly tachypneic. HEENT: Pupils are round and equally reacting to light. EOMI. No scleral icterus. No conjunctival pallor. Normocephalic, atraumatic. No pharyngeal erythema. No thyromegaly. CARDIOVASCULAR: S1 and S2 present. No murmurs, rubs, or gallops. -PULMONARY: Chest is clear to auscultation, bilateral wheezing ABDOMEN: Soft, nontender, nondistended, normoactive bowel sounds. No palpable organomegaly. -MUSCULOSKELETAL: No joint swelling or deformity. Low back tenderness EXTREMITIES: No cyanosis, clubbing, or pedal edema. NEUROLOGICAL: Gross neurological examination did not reveal any focal deficits. Cranial nerves are grossly intact, strength is 5/5 in all extremities. Sensation is intact. Meningeal signs are absent SKIN: No rashes. - Labs CBC & Chem 7: 01/19/19 08:24 01/19/19 08:24 Labs: Abnormal Lab Results - Last 24 Hours (Table) 01/19/19 01/19/19 01/19/19 Range/Units 11:37 17:02 20:32 POC Glucose (mg/dL) 152 H 154 H 138 H (75-99) mg/dL Microbiology - Last 24 Hours (Table) 01/17/19 18:23 Blood Culture - Preliminary Blood No Growth after 48 hours Assessment and Plan Assessment: Pneumonia, possible community-acquired, improving Acute on chronic hypoxic respiratory failure, improved Acute COPD exacerbation, improving Acute urinary tract infection, improving Acute kidney injury, resolved Low back injury secondary to recent falls, 2 weeks prior to admission Low back pain radiating to the right thigh. 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 Continue with antibiotics, change iv to oral antibiotic augmentin and doxycycline . change iv sterod to oral as pt is refusing iv. Follow-up culture results. Continue with bronchodilators, steroids and oxygen. Continue with lidocaine patch and pain management. Continue with gentle hydration. Continue with calcium and vitamin D. orthopedic consult recommended medical management. DC Ultram for stomach upset and start her on Carriere and lidocaine patch. Labs and medication were reviewed.. Continue same treatment. Continue with symptomatic treatment. Resume home medication. Monitor lytes and vitals. DVT and GI prophylaxis. Further recommendations of the clinical course of the patient DVT prophylaxis: Subcutaneous heparin GI Prophylaxis: Pepcid Prognosis is guarded Discussed with the staff
[2019-01-20 10:21] LABS: African American GFR (CKD) >90 (>60 ml/min/1.73 sqM); Anion Gap 9 mmol/L; Blood Urea Nitrogen 33 mg/dL (7-17); Calcium 10.8 mg/dL (8.4-10.2); Carbon Dioxide 31 mmol/L (22-30); Chloride 102 mmol/L (98-107); Glucose 144 mg/dL (74-99); Non-African American GFR(CKD) 81 (>60 ml/min/1.73 sqM); Potassium 3.8 mmol/L (3.5-5.1); Sodium 142 mmol/L (137-145)
[2019-01-20] MEDS: METHOCARBAMOL 500 MG TAB PO SCH ×4 (10:55→21:48)
[2019-01-20 10:56] LABS: Basophils % (A) 0 %; Eosinophils % (A) 0 %; HCT 30.8 % (34.0-46.0); HGB 9.5 gm/dL (11.4-16.0); Hypochromasia Slight; Lymphocytes # (A) 0.3 k/uL (1.0-4.8); Lymphocytes % (A) 3 %; MCH 27.5 pg (25.0-35.0); MCHC 30.8 g/dL (31.0-37.0); MCV 89.4 fL (80.0-100.0); Mean Platelet Volume 6.7; Monocytes # (A) 0.4 k/uL (0-1.0); Monocytes % (A) 6 %; Neutrophils # (A) 6.7 k/uL (1.3-7.7); Neutrophils % (A) 90 %; Platelet Count 289 k/uL (150-450); RBC 3.44 m/uL (3.80-5.40); RDW 15.2 % (11.5-15.5); WBC 7.4 k/uL (3.8-10.6)
[2019-01-20] MEDS: ONDANSETRON 4 MG TAB PO PRN (12:18)
--- NOTE | 2019-01-20 13:39 | P.PN ---
Progress Note - Text Progress Note Date: 01/20/19 Interval History: Patient is a 68-year-old female who was seen this morning, she sitting in a chair next or bed stating that she had some emesis. Patient states that she received Haldol and Ativan last night and states that there are whole Army of people that were in the room last night. Patient then pointed to the corner of her room and stated that the radicals were causing problems again. Patient then returned and addressed that as though her son was sitting there. Patient states she continues to have visual hallucinations, they are less this morning but are worse at night and she states they were quite bad last evening. Patient then discussed what was put into her IV, talking about a blue liquid the turned cloudy and then hardened. She felt these radicals pointing to the corner of the room were trying to do something to her. Mental Status: Appearance/Attitude: Patient is sitting in a hospital chair, aches eye contact and was cooperative Behavior: Patient did not exhibit any psychomotor agitation or retardation Speech/Language: Patient's speech is spontaneous of normal volume and rhythm and she is coherent Thought Process: Patient is goal-directed there is no evidence of loose association or flight of ideas Thought Content: Patient denies auditory hallucinations continues to have visual hallucinations of which she stated were very disturbing and disruptive last night. Patient states that she continues to see visual hallucinations today there are less during the day than they are at night. She referred to radicals that were in the corner of the room stating that they were trying to do things to her and then discussed problems with a fluid that was given to her IV yesterday some time. Patient is paranoid, still seeing visual hallucinations. Suicidal/Homicidal Ideation: Patient denies any current suicidal or homicidal ideation Sensorium/Cognition: Patient is alert and oriented to person, place and time Mood/Affect: Patient's mood is bland her affect is appropriate Insight/Judgment: Patient's insight and judgment are fair Assessment: Patient continues to have symptoms of a delirium with visual hallucinations and agitation, patient continues on prednisone although the doses being tapered and she is on oral medication now. Patient became agitated last night requiring Haldol 2.5 mg as well as Ativan. Patient is on an increased dose of Risperdal. Patient voices some paranoid ideation as well as continuing to have visual hallucinations. Plan: We will increase the patient's evening dose of Risperdal to 2 mg and move it to an earlier time in the evening to see if we can target her agitation that occurs in the evening. Patient will continue on 0.25 mg in the morning. Patient continues to experience visual hallucinations, paranoid ideation and agitation secondary to her delirium which is most likely caused by multiple etiologies.
[2019-01-20] MEDS: risperiDONE 2 MG TAB PO SCH (18:02)
[2019-01-20] MEDS: ATORVASTATIN 10 MG TAB PO SCH (21:48)
[2019-01-21 02:08] LABS: Appearance,Urine Clear (Clear); Bilirubin,Urine Negative (Negative); Blood,Urine Negative (Negative); Color,Urine Light Yellow; Glucose,Urine (UA) Negative (Negative); Ketones,Urine Negative (Negative); Leukocyte Esterase,Urine Negative (Negative); Nitrite,Urine Negative (Negative); Protein,Urine Negative (Negative); Specific Gravity,Urine 1.014 (1.001-1.035); Urobilinogen,Urine <2.0 mg/dL (<2.0)
[2019-01-21] MEDS: ACETAMINOPHEN TAB 325 MG TAB PO PRN (02:44)
[2019-01-21] MEDS: ALBUTEROL NEBULIZED 2.5 MG/3 ML INHALATION PRN ×4 (07:39→19:13)
[2019-01-21] MEDS: FORMOTEROL FUMARATE 20 MCG/2 ML NEBU INHALATION SCH ×2 (07:39→19:13)
[2019-01-21] MEDS: ONDANSETRON 4 MG TAB PO PRN (08:03)
[2019-01-21] MEDS: MONTELUKAST 10 MG TAB PO SCH (08:07)
[2019-01-21] MEDS: amLODIPine 10 MG TAB PO SCH (08:07)
[2019-01-21] MEDS: predniSONE 20 MG TAB PO SCH (08:07)
[2019-01-21] MEDS: HEPARIN SODIUM,PORCINE 5,000 UNIT/ML 1 ML VIAL SQ SCH ×2 (08:08→20:30)
[2019-01-21] MEDS: ASPIRIN 81 MG PO SCH (08:08)
[2019-01-21] MEDS: CALCIUM CARB-VIT D 500MG-200UN 1 EACH TAB PO SCH ×3 (08:08→18:23)
[2019-01-21] MEDS: FAMOTIDINE 20 MG TAB PO SCH ×2 (08:08→20:29)
[2019-01-21] MEDS: DOXYCYCLINE 100 MG CAP PO SCH ×2 (08:09→20:29)
[2019-01-21] MEDS: AMOXIC-POT CLAV 875-125MG 1 EACH TAB PO SCH ×2 (08:09→20:29)
[2019-01-21] MEDS: risperiDONE 0.25 MG TAB PO SCH (08:09)
[2019-01-21] MEDS: METHOCARBAMOL 500 MG TAB PO SCH ×4 (08:09→22:01)
[2019-01-21] MEDS: METOPROLOL SUCCINATE (ER) 50 MG TAB.ER.24H PO SCH (08:10)
[2019-01-21] MEDS: DULoxetine HCL 60 MG CAPSULE.DR PO SCH (08:10)
[2019-01-21] MEDS: METHIMAZOLE 5 MG TAB PO SCH (08:10)
[2019-01-21] MEDS: LIDOCAINE 5% PATCH TOPICAL SCH (08:10)
[2019-01-21] MEDS ORDERED: KETOROLAC 30 MG/ML 1 ML VIAL IVP PRN (09:10)
--- NOTE | 2019-01-21 09:20 | P.PN ---
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 Patient is known to me as she was transferred yesterday from the psychiatric unit to the medical floor. She Was admitted to the hospital and psychiatric unit on 01/10 for signs symptoms of psychosis from emergency room. Patient has been evaluated by medical service before. Yesterday was more lethargic, associated with some cough and phlegm unknown color and dyspnea. Also patient was noticed to be hypoxic in the 60s- 70s percent. Patient is a there was a little bit drowsy, today is more week and she can give more clear history. Today mentioned for the first time that she fell about 2 weeks ago prior to admission when she was living Dr. Lopez office her regular diet tripped on the road and she fell on her left side however since then she has back pain radiating to the right leg. Her low back pain and looks like a chronic and stable however her radiation to the right side is an you. However patient denies any weakness, no abnormal sensation, no change in urine and she controls her urine and bowel movements. Lumbar x-ray was done, showing slight scoliotic curvature at L2-L3 with mild to moderate compression fracture at L1. Her ibuprofen is already stopped. Ultram was started yesterday but causes stomach upset and she could not tolerate it. Patient was transferred to the general medical floor for COPD exacerbation and respiratory failure with acute kidney injury. Patient was in the psychiatric [facility] for site causes and hallucination which looks like subsided and cleared by psychiatrist for the transfer. Overnight patient has only one episode of hallucination. No more dilution of hallucination this morning. Vitas looks stable and patient is been afebrile for more than 5 days although she had low-grade fever on admission. Yesterday Labs reviewed showing no leukocytosis, hemoglobin stable at 9.1, acute kidney injury with creatinine 1.4, baseline 0.9-1.0, hemoglobin A1c is 5.4%, cholesterol slightly elevated at 212, TSH 1.2. Urinalysis is suspicious for infection with large leukocyte esterase. Urine culture is growing gram-negative bacilli more than 100,000 units. Chest x-ray from showing increased opacity in the right middle lobe to the lower lobe was sent from prior exam, suspicious for infection versus edema or atelectasis. Repeat labs from today are pending 01/19/2019 Patient is awake oriented, her breathing is quiet, she stated that she is on 4 L oxygen at home and that she follow up with Dr. santillan in the outpatient setting. she with mild dyspnea , No chest pain occasional cough only. Patient thinks her breathing is close to her baseline. She saturating 94-97 on 4 L. No change in urine or bowel habits. No dysuria. No fever. Physical therapy recommended subacute rehab versus home health care. Patient has some memory lapses for example she thinks she fell 2 weeks ago and yesterday when actually she did not while in the hospital as confirmed by staff. pt still with hallucination and psych service are following the pt. pt later on today she refused iv antibiotic and therapy , we changed her medication to ceftriaxone im and she still refused , we will start her on augmentin and oral doxycyclin and prednisone orally . repeat chest xray in the am for follow 01/20/2019 Patient is awake and alert however she is somewhat disoriented she was educated yesterday, last evening patient had hallucination with sick reaming AND seen people and crawling on the floor, safety*has to be placed in the room and patient received cervix, medication including Ativan and Haldol. This morning patient is more calm sitting on the edge of the bed however she still confused. She is light tachypneic but denies chest pain, she has occasional coughing. She remains on her baseline of 4 L of oxygen via nasal cannula and she saturating 96%. Patient is afebrile. Patient refused labs this morning although trying to get them again. However labs from the last 2 days show no leukocytosis and hemoglobin stable. Patient looks a little bit dehydrated patient refusing IV medication or fluid. Her medication as worse to oral Augmentin, doxycycline and prednisone 40 mg daily, lower the dose of steroids in case she has effect on her psychosis. Psychiatric team are following the patient closely. We'll add Robaxin to have intermittent back pain. Also we'll resend UA. 01/21/2019 Patient is awake and more calm today, sitter at bedside. Patient states that she feels better today, she slept well she is eating better has better appetite, she is less dyspneic this visual hallucination less agitated . In on exam her wheezing or better. However she still complaining of from low back pain. Her bronchoscopy stable she is at baseline oxygen 4 L nasal cannula saturating 96%.. Urinalysis is negative. Labs from today still pending. Psychiatric team are following the patient closely and adjust and medication as needed. Increase her Risperdal last night. We going to give patient Toradol short course and increase her Robaxin 1000 mg 4 times a day, also we'll send parathyroid hormone for patient mildly elevated calcium which might contributing to her constipation, dehydration, and psychotic symptoms. Her psychotic symptoms could be due to hypercalcemia, primary psychiatric illness, or steroid effect. Yesterday we lowered her steroids and switch her to oral but is on 40 mg daily and she seems tolerating that well so far. CONSTITUTIONAL: No fever HEENT: No recent visual problems or hearing problems. Denied any sore throat. CARDIOVASCULAR: no palpitations, no syncope. PULMONARY: no hemoptysis. GASTROINTESTINAL: No diarrhea, no nausea, no vomiting, no abdominal pain. Normoactive bowel sounds. NEUROLOGICAL: No headaches, no weakness, no numbness. HEMATOLOGICAL: Denies any bleeding or petechiae. GENITOURINARY: Denies any burning micturition, frequency, or urgency. MUSCULOSKELETAL/RHEUMATOLOGICAL: Denies any joint pain, swelling, or any muscle pain. ENDOCRINE: Denies any polyuria or polydipsia. Active Medications Generic Name Dose Route Start Last Admin Trade Name Freq PRN Reason Stop Dose Admin Acetaminophen 650 mg 01/17/19 17:43 01/21/19 02:44 Tylenol Tab PO 650 mg Q6HR PRN Administration Fever and/ or Mild Pain Hydrocodone Bitart/Acetaminophen 1 each 01/18/19 08:06 01/19/19 19:17 [place] 5-325 PO 1 each Q8HR PRN Administration Pain Albuterol Sulfate 2.5 mg 01/17/19 17:24 01/21/19 07:39 Ventolin Nebulized INHALATION 2.5 mg RT-Q4H PRN Administration Shortness Of Breath Amlodipine Besylate 10 mg 01/18/19 09:00 01/21/19 08:07 Norvasc PO 10 mg DAILY ALEX Administration Amoxicillin/Clavulanate Potassium 1 each 01/19/19 21:00 01/21/19 08:09 Augmentin 875-125 PO 1 each Q12HR ALEX Administration Aspirin 81 mg 01/18/19 09:00 01/21/19 08:08 Aspirin PO 81 mg DAILY ALEX Administration Atorvastatin Calcium 10 mg 01/17/19 21:00 01/20/19 21:48 Lipitor PO 10 mg HS ALEX Administration Calcium Carbonate 1 each 01/18/19 07:30 01/21/19 08:08 Oscal 500+D PO 1 each TID-W/MEALS ALEX Administration Doxycycline Monohydrate 100 mg 01/19/19 21:00 01/21/19 08:09 Vibramycin PO 100 mg BID ALEX Administration Duloxetine HCl 60 mg 01/19/19 09:00 01/21/19 08:10 Cymbalta PO 60 mg DAILY ALEX Administration Famotidine 20 mg 01/19/19 21:00 01/21/19 08:08 Pepcid PO 20 mg Q12HR ALEX Administration Formoterol Fumarate 20 mcg 01/19/19 08:00 01/21/19 07:39 Perforomist INHALATION 20 mcg RT-BID [facility] Administration Heparin Sodium (Porcine) 5,000 unit 01/17/19 21:00 01/21/19 08:08 Heparin SQ 5,000 unit Q12HR ALEX Administration Ketorolac Tromethamine 15 mg 01/21/19 09:10 Toradol IVP 01/22/19 09:11 Q6HR PRN Pain Lidocaine 1 patch 01/17/19 20:30 01/21/19 08:10 Lidoderm TOPICAL 1 patch DAILY ALEX Administration Methimazole 5 mg 01/18/19 09:00 01/21/19 08:10 Tapazole PO 5 mg DAILY [facility] Administration Methocarbamol 1,000 mg 01/21/19 13:00 Robaxin PO QID ALEX Metoprolol Succinate 50 mg 01/18/19 09:00 01/21/19 08:10 Toprol Xl PO 50 mg DAILY ALEX Administration Miscellaneous Information 1 each 01/19/19 10:25 Potassium Per Protocol MISCELLANE DAILY PRN Per Protocol Protocol Montelukast Sodium 10 mg 01/18/19 09:00 01/21/19 08:07 Singulair PO 10 mg DAILY ALEX Administration Ondansetron HCl 8 mg 01/17/19 17:24 01/21/19 08:03 Zofran PO 8 mg Q6HR PRN Administration Nausea Prednisone 40 mg 01/21/19 09:00 01/21/19 08:07 PO 40 mg DAILY ALEX Administration Risperidone 0.25 mg 01/19/19 09:00 01/21/19 08:09 Risperdal PO 0.25 mg DAILY ALEX Administration Risperidone 2 mg 01/20/19 19:00 01/20/19 18:02 Risperdal PO 2 mg 1900 ALEX Administration Senna 8.6 mg 01/17/19 17:45 01/18/19 19:12 Senokot PO 8.6 mg BID PRN Administration Constipation Objective - Vital Signs Vital signs: Vital Signs Temp 97.7 F 01/21/19 08:07 Pulse 89 01/21/19 08:07 Resp 14 01/21/19 08:07 BP 142/78 01/21/19 08:07 Pulse Ox 96 01/21/19 08:07 Intake & Output 01/20/19 01/21/19 01/21/19 18:59 06:59 18:59 Intake Total 640 Balance 640 Intake: Oral 640 Other: Voiding Method Toilet Toilet Bedside Commode Bedside Commode # Voids 1 2 - Exam -GENERAL: The patient is alert and oriented 3, this tachypneic done yesterday.HEENT: Pupils are round and equally reacting to light. EOMI. No scleral icterus. No conjunctival pallor. Normocephalic, atraumatic. No pharyngeal erythema. No thyromegaly. CARDIOVASCULAR: S1 and S2 present. No murmurs, rubs, or gallops. -PULMONARY: Chest is clear to auscultation, bilateral wheezing , improving ABDOMEN: Soft, nontender, nondistended, normoactive bowel sounds. No palpable organomegaly. -MUSCULOSKELETAL: No joint swelling or deformity. Low back tenderness EXTREMITIES: No cyanosis, clubbing, or pedal edema. NEUROLOGICAL: Gross neurological examination did not reveal any focal deficits. Cranial nerves are grossly intact, strength is 5/5 in all extremities. Sensation is intact. Meningeal signs are absent SKIN: No rashes. - Labs CBC & Chem 7: 01/20/19 09:02 01/20/19 09:02 Labs: Abnormal Lab Results - Last 24 Hours (Table) 01/20/19 01/20/19 Range/Units 09:02 09:02 RBC 3.44 L (3.80-5.40) m/uL Hgb 9.5 L (11.4-16.0) gm/dL Hct 30.8 L (34.0-46.0) % MCHC 30.8 L (31.0-37.0) g/dL Lymphocytes # 0.3 L (1.0-4.8) k/uL Carbon Dioxide 31 H (22-30) mmol/L BUN 33 H (7-17) mg/dL Glucose 144 H (74-99) mg/dL Calcium 10.8 H (8.4-10.2) mg/dL Microbiology - Last 24 Hours (Table) 01/17/19 18:23 Blood Culture - Preliminary Blood No Growth after 72 hours Assessment and Plan Assessment: Mild hypercalcemia, check parathyroid hormone Pneumonia, possible community-acquired, improving Acute on chronic hypoxic respiratory failure, improved Acute COPD exacerbation, improving Acute urinary tract infection, resolved. Acute kidney injury, resolved Low back injury secondary to recent falls, 2 weeks prior to admission Low back pain radiating to the right thigh. 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 Continue with antibiotics, change iv to oral antibiotic augmentin and doxycycline . change iv sterod to oral as pt is refusing iv. Follow-up culture results. Continue with bronchodilators, steroids and oxygen. Continue with lidocaine patch and pain management. Continue with gentle hydration. Continue with calcium and vitamin D. Patient has ongoing mild hypercalcemia, we will check parathyroid hormone. Checked with flaps patient is as undocked test but it and result in 24 hours. orthopedic consult recommended medical management. DC Ultram for stomach upset and continue on [place] and lidocaine patch, Robaxin and Toradol. Psychiatric team following the case. Labs and medication were reviewed.. Continue same treatment. Continue with symptomatic treatment. Resume home medication. Monitor lytes and vitals. DVT and GI prophylaxis. Further recommendations of the clinical course of the patient DVT prophylaxis: Subcutaneous heparin GI Prophylaxis: Pepcid Prognosis is guarded Discussed with the staff
[2019-01-21 11:24] LABS: Calcium 10.5 mg/dL (8.4-10.2); Potassium 3.5 mmol/L (3.5-5.1)
[2019-01-21 11:31] LABS: Basophils % (A) 0 %; Eosinophils % (A) 0 %; HCT 32.9 % (34.0-46.0); HGB 10.5 gm/dL (11.4-16.0); Hypochromasia Slight; Lymphocytes # (A) 0.3 k/uL (1.0-4.8); Lymphocytes % (A) 3 %; MCH 28.8 pg (25.0-35.0); MCV 90.2 fL (80.0-100.0); Mean Platelet Volume 6.6; Monocytes # (A) 0.5 k/uL (0-1.0); Monocytes % (A) 6 %; Neutrophils # (A) 8.2 k/uL (1.3-7.7); Neutrophils % (A) 90 %; Platelet Count 312 k/uL (150-450); RBC 3.65 m/uL (3.80-5.40); RDW 15.6 % (11.5-15.5); WBC 9.1 k/uL (3.8-10.6)
--- NOTE | 2019-01-21 12:52 | P.PN ---
Progress Note - Text Progress Note Date: 01/21/19 Interval History: Patient is a 68-year-old female who is being seen in coverage for Dr. Portillo. Patient was seen today and she reports that she is not in any visual hallucinations and slept fairly well last night. In speaking with the nursing staff they report that the patient had no episodes of agitation last night, continues to have some visual hallucinations but they are not causing any disruption in her behavior. Mental Status: Patient is lying in a hospital bed in no acute distress, she made eye contact and stated that she had slept well last evening. She states that the visual hallucinations have decreased significantly. Patient did not make reference to people being in the room, thought the people were trying to hurt her as she did yesterday when I saw her. Patient denied any current suicidal or homicidal ideation. Patient's mood was pleasant, she was not agitated and her affect is appropriate to her mood. Patient is alert and oriented to person, place and location. Assessment: In reviewing the patient's medication records on Tuesday the patient received [place] at 9 AM and 7 PM and then on Tuesday night had the episode of increased agitation more visual hallucinations and received Haldol IM and Ativan. Patient yesterday and so far today has not received any [place], her Risperdal was increased to 2 mg at bedtime. Patient today is less agitated, not verbalizing any paranoid ideation and per the nursing staff has not had any agitation secondary to the visual hallucinations. Patient states the visual hallucinations have decreased significantly and denied that she was seeing any when I examined her this afternoon. Plan: Would recommend that the patient not continue on opiate pain medication and use another substitute pain option, patient has been prescribed Toradol today. We'll continue the patient on Risperdal 0.25 mg in the morning and Risperdal 2 mg at bedtime. We'll continue to follow the patient while she is in the hospital.
[2019-01-21] MEDS: risperiDONE 2 MG TAB PO SCH (19:24)
[2019-01-21] MEDS: ATORVASTATIN 10 MG TAB PO SCH (20:29)
[2019-01-21 22:37] VITALS: RESP 18
[2019-01-22] MEDS: HYDROcodone/APAP 5-325MG 1 EACH TAB PO PRN (05:15)
[2019-01-22] MEDS: ALBUTEROL NEBULIZED 2.5 MG/3 ML INHALATION PRN ×4 (05:43→20:20)
[2019-01-22 07:40] LABS: Basophils % (A) 0 %; Eosinophils # (A) 0.1 k/uL (0-0.7); Eosinophils % (A) 1 %; HCT 31.1 % (34.0-46.0); HGB 10.1 gm/dL (11.4-16.0); Hypochromasia Slight; Lymphocytes # (A) 0.6 k/uL (1.0-4.8); Lymphocytes % (A) 9 %; MCH 29.4 pg (25.0-35.0); MCHC 32.5 g/dL (31.0-37.0); MCV 90.4 fL (80.0-100.0); Mean Platelet Volume 6.7; Monocytes # (A) 0.6 k/uL (0-1.0); Monocytes % (A) 9 %; Neutrophils # (A) 5.5 k/uL (1.3-7.7); Neutrophils % (A) 79 %; Platelet Count 311 k/uL (150-450); RBC 3.44 m/uL (3.80-5.40); RDW 15.5 % (11.5-15.5); WBC 6.9 k/uL (3.8-10.6)
[2019-01-22 07:57] LABS: Calcium 9.9 mg/dL (8.4-10.2); Potassium 3.7 mmol/L (3.5-5.1)
[2019-01-22] MEDS: CALCIUM CARB-VIT D 500MG-200UN 1 EACH TAB PO SCH ×3 (08:03→14:53)
[2019-01-22] MEDS: LIDOCAINE 5% PATCH TOPICAL SCH (08:05)
[2019-01-22] MEDS: SENNOSIDES 8.6 MG TAB PO PRN (08:09)
[2019-01-22] MEDS: HEPARIN SODIUM,PORCINE 5,000 UNIT/ML 1 ML VIAL SQ SCH ×2 (08:09→20:47)
[2019-01-22] MEDS: FAMOTIDINE 20 MG TAB PO SCH (08:09)
[2019-01-22] MEDS: MONTELUKAST 10 MG TAB PO SCH (08:09)
[2019-01-22] MEDS: ASPIRIN 81 MG PO SCH (08:09)
[2019-01-22] MEDS: amLODIPine 10 MG TAB PO SCH (08:10)
[2019-01-22] MEDS: predniSONE 20 MG TAB PO SCH (08:10)
[2019-01-22] MEDS: DOXYCYCLINE 100 MG CAP PO SCH ×2 (08:10→20:47)
[2019-01-22] MEDS: METHOCARBAMOL 500 MG TAB PO SCH ×4 (08:10→20:47)
[2019-01-22] MEDS: AMOXIC-POT CLAV 875-125MG 1 EACH TAB PO SCH ×2 (08:11→20:46)
[2019-01-22] MEDS: METHIMAZOLE 5 MG TAB PO SCH (08:11)
[2019-01-22] MEDS: risperiDONE 0.25 MG TAB PO SCH (08:11)
[2019-01-22] MEDS: DULoxetine HCL 60 MG CAPSULE.DR PO SCH (08:11)
[2019-01-22] MEDS: METOPROLOL SUCCINATE (ER) 50 MG TAB.ER.24H PO SCH (08:11)
[2019-01-22] MEDS: FORMOTEROL FUMARATE 20 MCG/2 ML NEBU INHALATION SCH ×2 (08:46→20:20)
--- NOTE | 2019-01-22 11:54 | P.PN ---
Progress Note - Text Interval history: The patient is found seated upright in bed. She indicates her mood is good. She spontaneously states that she is experiencing no auditory or visual hallucinations. She indicates been 2 days since she's had any psychosis. It appears earlier in the weekend she did get a Haldol injection. I did review Dr. Vaca's note. It also seems that she received [place] just prior. She feels that the Robaxin is providing some pain relief. I did discuss the case with the patient's current nurse. I indicated that we would like to see the patient off of the [place] completely. Mental status exam: The patient is awake she seated upright at the edge of her bed. She has eyeglasses on she is dressed in hospital attire she is wearing her nasal cannula oxygen. Eye contact is appropriate. Speech is fluent spontaneous nonpressured. She indicates her mood is good. Affect is congruent she is expressive. She is reporting no suicidal or homicidal ideation intent or plan. She denies having any auditory or visual hallucinations. There is no observed evidence of psychosis during our interaction this morning. She demonstrates no tangential thinking loose associations or flight of ideas. She does not appear currently hypomanic or manic. Insight and judgment improving. She is oriented to person place and date of the week a month and year. She did incorrectly name the date is the rather than . Impression/plan: Resolving delirium, the patient's reporting no hallucinations at this time. I will discontinue the [place] as we believe it is in etiology to the visual hallucinations. I'll reduce the Risperdal to the 2 mg at bedtime. At this point the patient does not require readmission to the mental health unit. We will continue to follow while medically admitted.
[2019-01-22] MEDS: ACETAMINOPHEN TAB 325 MG TAB PO PRN (14:53)
--- NOTE | 2019-01-22 20:37 | P.PN ---
Progress Note - Text Progress Note Date: 01/22/19 Interval history: This is a pleasant 68-year-old patient who follows with Dr. Lopez as a PCP and Dr. Sánchez as her manager organizational. 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 Patient admitted to the the psychiatry unit on January 10 For psychosis. Patient was then transferred to the medical floor for COPD exacerbation, pneumonia, acute hypoxic respiratory failure. Today-patient was seen by psychiatry. It was felt her pain medications were contributing to some of her hallucinations. Her narcotics were discontinued. This morning patient's is rather well. No more hallucinations. Did have a sitter. He to breakfast well. Was to go back to [facility]. Did get 1 dose of [place] last night.. Review of systems: Was done for constitutional, cardiovascular, GI, pulmonary. Psychiatry, relevant finding as above Physical examination: VITAL SIGNS: 98.2, 85, 18, 116/66, 94% on 4 L GENERAL: Sitting at the edge of the bed, comfortable awake EYES: Pupils equal. Conjunctiva normal. HEENT: External appearance of nose and ears normal, oral cavity grossly normal, decreased hearing. NECK: JVD not raised; masses not palpable. HEART: First and second heart sounds are normal; no edema. LUNGS: Respiratory rate increased, decreased breath sounds minimal wheezing. ABDOMEN: Soft, nontender, liver spleen not palpable, no masses palpable. PSYCH: AAO 3, smiling l. Investigations: At 6.9 and hemoglobin 10.1 potassium 3.7 bun 38 creatinine 1.09 Calcium 10.5 PTH intact elevated at 1 or 2.2 Assessment: -Delirium with psychosis -Acute COPD exacerbation and an ex-smoker r -Acute hypoxic respiratory failure from pneumonia and COPD exacerbation -Pneumonia -Chronic hypoxic respiratory failure from underlying COPD on 4 L oxygen at home -Small cell type lung cancer status post chemoradiation treatment stable -Right nephrectomy from patient having donated a kidney -Chronic compression fracture of the thoracic vertebra -Anxiety disorder not otherwise specified -Nontoxic multinodular goiter -Depression otherwise specified -Thoracic aortic aneurysm 4.8 cm -Chronic insomnia -Chronic diverticulosis and colonic -Chronic bilateral tinnitus -Hyperlipidemia -Essential hypertension -Hypercalcemia with elevated intact PTH -Chronic L1 fracture Plan: -Patient was on calcium supplements that are being discontinued. We'll have patient follow-up with pulmonary given a history of lung cancer. Had a lengthy talk with the patient and she is agreeable to stopping all her narcotics. We will use a heating pad if needed for pain control. Also did tolerate to some gentle stretching exercises. We will DC patient sitter. We'll watch him another 24 hours. If she remains stable she can go home tomorrow. Today a total of 40-45 minutes was spent with over 25 minutes in discussion.
[2019-01-22] MEDS: risperiDONE 2 MG TAB PO SCH (20:46)
[2019-01-22] MEDS: ATORVASTATIN 10 MG TAB PO SCH (20:47)
[2019-01-23] MEDS: ACETAMINOPHEN TAB 325 MG TAB PO PRN ×3 (02:15→17:21)
[2019-01-23] MEDS: ALBUTEROL NEBULIZED 2.5 MG/3 ML INHALATION PRN ×4 (04:18→16:49)
[2019-01-23 04:48] VITALS: TEMP 98.6
[2019-01-23] MEDS: CALCIUM CARB-VIT D 500MG-200UN 1 EACH TAB PO SCH ×3 (08:18→17:19)
[2019-01-23] MEDS: amLODIPine 10 MG TAB PO SCH (08:19)
[2019-01-23] MEDS: predniSONE 20 MG TAB PO SCH (08:20)
[2019-01-23] MEDS: DULoxetine HCL 60 MG CAPSULE.DR PO SCH (08:20)
[2019-01-23] MEDS: DOXYCYCLINE 100 MG CAP PO SCH (08:20)
[2019-01-23] MEDS: MONTELUKAST 10 MG TAB PO SCH (08:21)
[2019-01-23] MEDS: ASPIRIN 81 MG PO SCH (08:21)
[2019-01-23] MEDS: LIDOCAINE 5% PATCH TOPICAL SCH (08:25)
[2019-01-23] MEDS: HEPARIN SODIUM,PORCINE 5,000 UNIT/ML 1 ML VIAL SQ SCH (08:30)
[2019-01-23] MEDS: METOPROLOL SUCCINATE (ER) 50 MG TAB.ER.24H PO SCH (08:31)
[2019-01-23] MEDS: METHIMAZOLE 5 MG TAB PO SCH (08:31)
[2019-01-23] MEDS: METHOCARBAMOL 500 MG TAB PO SCH ×3 (08:31→17:21)
[2019-01-23] MEDS: AMOXIC-POT CLAV 875-125MG 1 EACH TAB PO SCH (08:32)
[2019-01-23] MEDS: FORMOTEROL FUMARATE 20 MCG/2 ML NEBU INHALATION SCH (08:37)
[2019-01-23] MEDS ORDERED: FAMOTIDINE 20 MG TAB PO SCH (09:00)
[2019-01-23 10:19] LABS: Basophils % (A) 0 %; Eosinophils # (A) 0.1 k/uL (0-0.7); Eosinophils % (A) 1 %; HCT 31.8 % (34.0-46.0); HGB 9.9 gm/dL (11.4-16.0); Hypochromasia Slight; Lymphocytes # (A) 0.7 k/uL (1.0-4.8); Lymphocytes % (A) 9 %; MCH 27.8 pg (25.0-35.0); MCHC 31.2 g/dL (31.0-37.0); MCV 89.3 fL (80.0-100.0); Mean Platelet Volume 6.5; Monocytes # (A) 0.6 k/uL (0-1.0); Monocytes % (A) 7 %; Neutrophils % (A) 81 %; Platelet Count 288 k/uL (150-450); RBC 3.56 m/uL (3.80-5.40); RDW 15.1 % (11.5-15.5); WBC 8.6 k/uL (3.8-10.6)
[2019-01-23 11:35] LABS: Calcium 10.1 mg/dL (8.4-10.2); Potassium 3.2 mmol/L (3.5-5.1)
[2019-01-23] MEDS ORDERED: POTASSIUM CHLORIDE ER 20 MEQ TAB.ER PO STA (11:53)
[2019-01-23] MEDS ORDERED: NAPROXEN 250 MG TAB PO SCH (12:00)
[2019-01-23 12:07] VITALS: BP 125/72
[2019-01-23 17:02] VITALS: PULSE 84
[2019-01-23] MEDS: risperiDONE 2 MG TAB PO SCH (18:53)
--- NOTE | 2019-01-23 20:21 | P.DS ---
Providers Date of admission: 01/17/19 15:39 Expected date of discharge: 01/23/19 Attending physician: Noe Ellis Consults: 01/17/19 17:28 Consult Physician Routine Consulting Provider: Orlin Portillo Consult Reason/Comments: psychosis Do you want consulting provider notified?: Yes 01/18/19 08:06 Consult Physician Urgent Consulting Provider: Lorenzo Diaz Consult Reason/Comments: Fall, with low back pain radiating to the thigh Do you want consulting provider notified?: Yes Primary care physician: Chris Lopez [place] Hospital Course: Hospital course: This is a pleasant 68-year-old patient who follows with Dr. 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 Patient admitted to the the psychiatry unit on January 10 For psychosis. Patient was then transferred to the medical floor for COPD exacerbation, pneumonia, acute hypoxic respiratory failure. Patient narcotics discontinued. Psychotic features did not come back. Did discuss the patient or pain medications. Naproxen was added. Heating pad was added. Care was discussed at length with the patient. Patient's family will be taking her back home. We will have the patient follow-up with pulmonary given the hypercalcemia and elevated intact PTH Physical examination: VITAL SIGNS: Afebrile, 87, 18, 125/72, 98% on 4 L GENERAL: Sitting at the edge of the bed, comfortable awake EYES: Pupils equal. Conjunctiva normal. HEENT: External appearance of nose and ears normal, oral cavity grossly normal, decreased hearing. NECK: JVD not raised; masses not palpable. HEART: First and second heart sounds are normal; no edema. LUNGS: Respiratory rate increased, decreased breath sounds minimal wheezing. ABDOMEN: Soft, nontender, liver spleen not palpable, no masses palpable. PSYCH: AO 3, smiling l. Investigations: White count 8.6 hemoglobin 9.9 potassium 3. bun 38 creatinine 1.0 to Calcium 10.5 PTH intact elevated at 1 or 2.2 Assessment: -Delirium with psychosis, improved -Acute COPD exacerbation and an ex-smoker r -Acute hypoxic respiratory failure from pneumonia and COPD exacerbation -Pneumonia -Chronic hypoxic respiratory failure from underlying COPD on 4 L oxygen at home -Small cell type lung cancer status post chemoradiation treatment stable -Right nephrectomy from patient having donated a kidney -Chronic compression fracture of the thoracic vertebra -Anxiety disorder not otherwise specified -Nontoxic multinodular goiter -Depression otherwise specified -Thoracic aortic aneurysm 4.8 cm -Chronic insomnia -Chronic diverticulosis and colonic -Chronic bilateral tinnitus -Hyperlipidemia -Essential hypertension -Hypercalcemia with elevated intact PTH -Chronic L1 fracture Plan: [facility] Patient Condition at Discharge: Stable Plan - Discharge Summary Discharge Rx Participant: No New Discharge Prescriptions: New Amoxic-Pot Clav 875-125Mg [Augmentin 875-125] 1 each PO Q12HR #6 tab Naproxen 250 mg PO BID #20 tablet predniSONE 0 mg PO DIRECTED #10 tab risperiDONE [RisperDAL] 2 mg PO 1900 #30 tab Acetaminophen Tab [Tylenol Tab] 650 mg PO Q6H PRN #1 tablet PRN Reason: Pain Continue Methimazole [Tapazole] 5 mg PO DAILY Albuterol Sulfate [Proair Hfa] 2 puff INHALATION RT-Q4H PRN PRN Reason: Shortness Of Breath Atorvastatin [Lipitor] 10 mg PO HS #30 tab Montelukast [Singulair] 10 mg PO DAILY Aspirin EC [Ecotrin Low Dose] 81 mg PO DAILY Ondansetron HCl [Zofran] 8 mg PO Q6HR PRN PRN Reason: Nausea amLODIPine [Norvasc] 10 mg PO DAILY #30 tab Metoprolol Succinate (ER) [Toprol XL] 50 mg PO DAILY DULoxetine HCL [Cymbalta] 60 mg PO DAILY Arformoterol Tartrate [Brovana] 15 mcg INHALATION RT-BID Discontinued ALPRAZolam [Xanax] 0.5 mg PO BID PRN PRN Reason: Anxiety Temazepam [Restoril] 15 mg PO HS PRN PRN Reason: Insomnia HYDROcodone/APAP 10-325MG [[place] 10-325] 1 tab PO Q6H PRN PRN Reason: Pain DULoxetine HCL [Cymbalta] 30 mg PO DAILY risperiDONE [RisperDAL] 0.25 mg PO BID Discharge Medication List Methimazole [Tapazole] 5 mg PO DAILY 07/25/18 [History] Albuterol Sulfate [Proair Hfa] 2 puff INHALATION RT-Q4H PRN 08/31/18 [History] Atorvastatin [Lipitor] 10 mg PO HS #30 tab 08/31/18 [Rx] Aspirin EC [Ecotrin Low Dose] 81 mg PO DAILY 09/21/18 [History] Montelukast [Singulair] 10 mg PO DAILY 09/21/18 [History] Ondansetron HCl [Zofran] 8 mg PO Q6HR PRN 09/21/18 [History] amLODIPine [Norvasc] 10 mg PO DAILY #30 tab 10/16/18 [Rx] Arformoterol Tartrate [Brovana] 15 mcg INHALATION RT-BID 01/09/19 [History] DULoxetine HCL [Cymbalta] 60 mg PO DAILY 01/09/19 [History] Metoprolol Succinate (ER) [Toprol XL] 50 mg PO DAILY 01/09/19 [History] Acetaminophen Tab [Tylenol Tab] 650 mg PO Q6H PRN #1 tablet 01/23/19 [Rx] Amoxic-Pot Clav 875-125Mg [Augmentin 875-125] 1 each PO Q12HR #6 tab 01/23/19 [Rx] Naproxen 250 mg PO BID #20 tablet 01/23/19 [Rx] predniSONE 0 mg PO DIRECTED #10 tab 01/23/19 [Rx] risperiDONE [RisperDAL] 2 mg PO 1900 #30 tab 01/23/19 [Rx] Follow up Appointment(s)/Referral(s): [facility] [Outside] - 01/26/19 9:00 am (Intake with Chris Morris DO [Primary Care Provider] - 01/23/19 1:40 pm Lorenzo Diaz DO [Doctor of Osteopathic Medicine] - As Needed [facility], [NON-STAFF] - 1-2 Days Piedad Sánchez MD [STAFF PHYSICIAN] - 03/05/19 10:00 am Patient Instructions/Handouts: Acetaminophen (By mouth), Naproxen (By mouth), Prednisone (By mouth), Amoxicillin/Clavulanate Potassium (By mouth), Risperidone (By mouth) Activity/Diet/Wound Care/Special Instructions: heating pad for back pain - as needed Activity as needed Discharge Disposition: HOME SELF-CARE
== END 2019-01-23 19:54 | disposition home or self-care (01) | DRG 193 ==
LOC: 3NMEDONC 15:39
PROVIDERS: ADMIT Hospitalist; ATTEND Hospitalist
DX: J18.9 Pneumonia, unspecified organism (principal); J96.21 Acute and chronic respiratory failure with hypoxia; J44.0 Chronic obstructive pulmonary disease with (acute) lower respiratory infection; J44.1 Chronic obstructive pulmonary disease with (acute) exacerbation; F32.3 Major depressive disorder, single episode, severe with psychotic features; M48.54XA Collapsed vertebra, not elsewhere classified, thoracic region, initial encounter for fracture; N17.9 Acute kidney failure, unspecified; N39.0 Urinary tract infection, site not specified; C34.32 Malignant neoplasm of lower lobe, left bronchus or lung; M48.56XA Collapsed vertebra, not elsewhere classified, lumbar region, initial encounter for fracture; E03.9 Hypothyroidism, unspecified; E04.2 Nontoxic multinodular goiter; E78.5 Hyperlipidemia, unspecified; E83.52 Hypercalcemia; E86.0 Dehydration; F41.9 Anxiety disorder, unspecified; F51.04 Psychophysiologic insomnia; F60.0 Paranoid personality disorder; H93.13 Tinnitus, bilateral; I10 Essential (primary) hypertension; I71.2 Thoracic aortic aneurysm, without rupture; K21.9 Gastro-esophageal reflux disease without esophagitis; K57.90 Diverticulosis of intestine, part unspecified, without perforation or abscess without bleeding; K59.00 Constipation, unspecified; Z53.20 Procedure and treatment not carried out because of patient's decision for unspecified reasons; Z79.82 Long term (current) use of aspirin; Z79.899 Other long term (current) drug therapy; Z80.0 Family history of malignant neoplasm of digestive organs; Z81.1 Family history of alcohol abuse and dependence; Z87.891 Personal history of nicotine dependence; Z87.442 Personal history of urinary calculi; Z90.5 Acquired absence of kidney; Z90.710 Acquired absence of both cervix and uterus; Z92.21 Personal history of antineoplastic chemotherapy; Z92.3 Personal history of irradiation; Z99.81 Dependence on supplemental oxygen; Z98.42 Cataract extraction status, left eye; Z98.41 Cataract extraction status, right eye; Z96.1 Presence of intraocular lens; S39.011A Strain of muscle, fascia and tendon of abdomen, initial encounter; W18.30XA Fall on same level, unspecified, initial encounter; G89.29 Other chronic pain; Z87.440 Personal history of urinary (tract) infections; Z88.5 Allergy status to narcotic agent; Z88.7 Allergy status to serum and vaccine
CPT/HCPCS: 71045; 73502; 80048; 81003; 83970; 85025; 87040; 94640; 94760

== ENCOUNTER → 2019-01-30 | Outpatient (CLI) | payer MEDICARE ==
--- NOTE | 2019-01-30 16:55 | CT ---
EXAMINATION TYPE: CT ChestAbdPelvis w con DATE OF EXAM: 01/30/2019 INDICATION: Follow up to lung CA COMPARISON: CT chest 11/01/2018 CT DLP: 633.6 mGycm CONTRAST: Performed with Oral Contrast and with IV Contrast, patient injected with 100 mL of Isovue 300. TECHNIQUE: Axial images at 5 mm thick sections. Reconstructed images in the coronal plane. Delayed images through the kidneys. FINDINGS: CT CHEST: The thyroid is enlarged and heterogenous and extends into the superior mediastinum compatible with a goiter. No suspicious lung nodules or focal infiltrates are present. No enlarged mediastinal or hilar adenopathy is evident. The ascending aorta diameter at the level of the main pulmonary artery is 3.2 cm. The main pulmonary artery diameter at the bifurcation is 2.8 cm. The descending thoracic aorta is tortuous. Atheromatous changes are along the wall. The flow lumen is dilated measuring 5.0 cm above the diaphragm. Minimal fusiform prominence within the mid abdominal a aristides below the celiac axis and superior mesenteric artery. Greatest AP diameter is 2.4 cm. This termi nates at the bifurcation. Vascular calcification is within the aorta. CT ABDOMEN: Liver: Normal Spleen: Multiple calcified granuloma within the spleen. Pancreas: Normal Adrenal glands: The adrenal glands are normal. Gallbladder: Surgically absent Kidneys: No masses are evident. No hydronephrosis is present. There is a 1.2 cm left renal cyst mid posterior cortex measuring 11 Hounsfield units. Delayed images were obtained through the kidneys, a dditional cortical renal cysts are more evident on the delayed images through the left kidney. The ri ght kidney may be congenitally absent is not visualized. Aorta: Vascular calcification is within the aorta. Inferior vena cava: Normal. CT PELVIS: Loops of bowel within the abdomen and pelvis are normal. There are loops of bowel which are incom pletely distended or lack oral contrast limiting their evaluation. Fecal bolus is at the level the re ctum. Multiple diverticuli are within the sigmoid colon. Appendix: Not visualized Urinary bladder: Normal. Genitourinary structures: Uterus is absent. Osseous structures: No suspicious lytic or sclerotic lesions. There may be an old fracture of the lef t ischio ramus. Sacroiliac joint degenerative changes are noted. Facet changes are within the lower l umbar spine.. IMPRESSIONS: 1. No suspicious changes to suggest recurrent or metastatic lung cancer. 2. Large goiter with extension into the superior mediastinum. 3. Left renal cysts. 4. Diverticulosis without acute diverticulitis. 5. Postsurgical changes within the abdomen. 6. Stable appearing descending thoracic aortic aneurysm with an AP dimension of 5.0 cm.
== END | disposition home or self-care (01) ==
LOC: RADCTMAIN 09:22
PROVIDERS: ATTEND Internal Medicine Hematology & Oncology
DX: C34.90 Malignant neoplasm of unspecified part of unspecified bronchus or lung (principal); E04.9 Nontoxic goiter, unspecified; K57.30 Diverticulosis of large intestine without perforation or abscess without bleeding; N28.1 Cyst of kidney, acquired; Z98.890 Other specified postprocedural states
CPT/HCPCS: 71260; 74177; Q9967

== ENCOUNTER 2019-04-10 13:47 | Emergency (ER) | payer MEDICARE ==
[2019-04-10] MEDS ORDERED: IPRATROPIUM-ALBUTEROL 3 ML NEB INHALATION STA (14:02)
[2019-04-10 14:15] LABS: Basophils % (A) 0 %; Eosinophils # (A) 0.1 k/uL (0-0.7); Eosinophils % (A) 1 %; HCT 34.2 % (34.0-46.0); HGB 11.2 gm/dL (11.4-16.0); Lymphocytes # (A) 0.8 k/uL (1.0-4.8); Lymphocytes % (A) 8 %; MCH 29.5 pg (25.0-35.0); MCHC 32.9 g/dL (31.0-37.0); MCV 89.8 fL (80.0-100.0); Mean Platelet Volume 5.5; Monocytes # (A) 0.5 k/uL (0-1.0); Monocytes % (A) 5 %; Neutrophils # (A) 8.8 k/uL (1.3-7.7); Neutrophils % (A) 85 %; Platelet Count 144 k/uL (150-450); RDW 15.6 % (11.5-15.5); WBC 10.4 k/uL (3.8-10.6)
[2019-04-10 14:24] LABS: Partial Thromboplastin Time 31.9 sec (22.0-30.0); Prothrombin Time 10.7 sec (9.0-12.0)
--- NOTE | 2019-04-10 14:36 | XR ---
EXAMINATION TYPE: XR chest 2V DATE OF EXAM: 04/10/2019 COMPARISON: Prior chest x-ray 03/28/[address] 01/30/2019 HISTORY: Difficulty breathing TECHNIQUE: Frontal and lateral views of the chest are obtained. FINDINGS: Prominent lung volumes are compatible with underlying emphysema. Postop change again noted to the left clavicle. Heart is enlarged as on prior exam. Patient is rotated. No evident pneumothora x. Aortic aneurysm is present. Linear parenchymal lung foci compatible with scarring. IMPRESSION: Cardiomegaly, emphysema, descending thoracic aortic aneurysm. Rotated exam. Probable tejal g scarring.
[2019-04-10 14:42] LABS: Albumin 3.7 g/dL (3.5-5.0); Calcium 9.6 mg/dL (8.4-10.2); Potassium 3.5 mmol/L (3.5-5.1); Total Bilirubin 0.7 mg/dL (0.2-1.3)
--- NOTE | 2019-04-10 16:05 | ED ---
SOB HPI - General Chief Complaint: Shortness of Breath Stated Complaint: SOB Time Seen by Provider: 04/10/19 13:50 Source: patient, EMS Mode of arrival: EMS Limitations: no limitations - History of Present Illness Initial Comments: The patient is a 68-year-old female with past medical history of COPD on 4 L of home O2 presents emergency room with reported shortness of breath. She states that she fell asleep last night with the oxygen on her face. She woke this morning and oxygen was not on her face. She felt extremely short of breath. She was transported to the ER by EMS. Reports that she has had a mild increase in her cough recently. It is nonproductive. No fevers or chills. Denies any chest pain or hemoptysis. The patient was placed on oxygen at our facility and states it completely resolved her shortness of breath. She does see Dr. Sánchez in office. She denies any abdominal pain. No changes in her bowel or bladder habits. Denies a history of cardiac disease. Does have fluid retention in the lower extremity is which is chronic. States it is not worsened. There are no other alleviating, precipitating or modifying factors - Related Data Home Medications Medication Instructions Recorded Confirmed Methimazole [Tapazole] 7.5 mg PO MOWEFR 07/25/18 04/10/19 Albuterol Sulfate [Proair Hfa] 2 puff INHALATION RT-Q4H PRN 08/31/18 04/10/19 Aspirin EC [Ecotrin Low Dose] 81 mg PO DAILY 09/21/18 04/10/19 Montelukast [Singulair] 10 mg PO HS 09/21/18 04/10/19 DULoxetine HCL [Cymbalta] 60 mg PO DAILY 01/09/19 04/10/19 Albuterol Nebulized [Ventolin 2.5 mg INHALATION RT-TID 04/10/19 04/10/19 Nebulized] Arformoterol Tartrate [Brovana] 15 mcg INHALATION RT-BID 04/10/19 04/10/19 Budesonide 1 mg INHALATION RT-BID 04/10/19 04/10/19 Calcium Carbonate 500 mg PO DAILY 04/10/19 04/10/19 Desvenlafaxine Succinate [Pristiq 50 mg PO DAILY 04/10/19 04/10/19 ER] Furosemide [Lasix] 20 mg PO DAILY 04/10/19 04/10/19 HYDROcodone/APAP 10-325MG [[place] 1 tab PO Q6H PRN 04/10/19 04/10/19 10-325] Methimazole 5 mg PO SUTUTHSA 04/10/19 04/10/19 Metoprolol Succinate [Toprol XL] 25 mg PO DAILY 04/10/19 04/10/19 Ondansetron HCl [Zofran] 4 mg PO Q8H PRN 04/10/19 04/10/19 Polyethylene Glycol 3350 [Miralax] 17 gm PO DAILY 04/10/19 04/10/19 Potassium Bicarbonate/Cit AC 25 meq PO DAILY 04/10/19 04/10/19 [Klor-Con 25 (Effer. Tab)] Ranitidine HCl [Zantac] 150 mg PO BID 04/10/19 04/10/19 Tiotropium 18 Mcg/Puff [Spiriva] 1 cap INHALATION RT-DAILY 04/10/19 04/10/19 predniSONE 10 mg PO DAILY 04/10/19 04/10/19 risperiDONE [RisperDAL] 2 mg PO HS 04/10/19 04/10/19 traZODone HCL 100 mg PO HS 04/10/19 04/10/19 Previous Rx's Medication Instructions Recorded Atorvastatin [Lipitor] 10 mg PO HS #30 tab 08/31/18 amLODIPine [Norvasc] 10 mg PO DAILY #30 tab 10/16/18 Allergies Allergy/AdvReac Type Severity Reaction Status Date / Time Influenza Virus Vaccines Allergy Dyspnea Verified 04/10/19 14:35 hydromorphone [From Dilaudid] AdvReac Hallucinati Verified 04/10/19 14:35 ons Review of Systems ROS Statement: Those systems with pertinent positive or pertinent negative responses have been documented in the HPI. ROS Other: All systems not noted in ROS Statement are negative. Past Medical History Past Medical History: Asthma, Cancer, COPD, GERD/Reflux, Hyperlipidemia, H ypertension, Pneumonia, Renal Disease, Thyroid Disorder Additional Past Medical History / Comment(s): Pt recently admitted to [facility] on 12/23/18 with psychosis, compression fracture L1, pneumonia, hypoxia, respiratory failure, acute on chronic COPD, UTI/kidney injury. 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 History of Any Multi-Drug Resistant Organisms: None Reported Past Surgical History: Cholecystectomy, Hysterectomy, Orthopedic Surgery Additional Past Surgical History / Comment(s): Bronchoscopy with lung bx, pulmonary stent, EGD, colonoscopy/polypectomy with bleed, R nephrectomy 1981, 2011 laparotomy with lysis of adhesions, L shoulder and collar bone surgery, total hysterectomy, cataract surg-lens implants. Past Anesthesia/Blood Transfusion Reactions: No Reported Reaction Additional Past Anesthesia/Blood Transfusion Reaction / Comment(s): Pt has never received blood. Past Psychological History: Depression Smoking Status: Former smoker Past Alcohol Use History: None Reported Past Drug Use History: None Reported - Past Family History Father Family Medical History: Cancer Additional Family Medical History / Comment(s): Pancreatic cancer and passed when he was 58 Mother Family Medical History: No Reported History Additional Family Medical History / Comment(s): Alcohol abuse General Exam Limitations: no limitations General appearance: alert, in no apparent distress Head exam: Present: atraumatic, normocephalic, normal inspection Eye exam: Present: normal appearance, PERRL, EOMI. Absent: scleral icterus, conjunctival injection, periorbital swelling ENT exam: Present: normal exam, mucous membranes moist Neck exam: Present: normal inspection. Absent: tenderness, meningismus, lymphadenopathy Respiratory exam: Present: wheezes, decreased breath sounds. Absent: respiratory distress, rales, rhonchi, stridor Cardiovascular Exam: Present: normal rhythm, tachycardia, normal heart sounds. Absent: systolic murmur, diastolic murmur, rubs, gallop, clicks GI/Abdominal exam: Present: soft, normal bowel sounds. Absent: distended, tenderness, guarding, rebound, rigid Extremities exam: Present: normal inspection, full ROM, normal capillary refill. Absent: tenderness, pedal edema, joint swelling, calf tenderness Back exam: Present: normal inspection Neurological exam: Present: alert, oriented X3, CN II-XII intact Psychiatric exam: Present: normal affect, normal mood Skin exam: Present: warm, dry, intact, normal color. Absent: rash Course Vital Signs 04/10/19 04/10/19 04/10/19 13:48 15:15 15:24 Temperature 99.5 F Pulse Rate 107 H 103 H 101 H Respiratory 22 20 Rate Blood Pressure 132/88 134/91 O2 Sat by Pulse 86 L 98 Oximetry 04/10/19 04/10/19 15:25 16:40 Temperature 99.0 F Pulse Rate 104 H 87 Respiratory 16 Rate Blood Pressure 129/86 O2 Sat by Pulse 94 L Oximetry Medical Decision Making - Medical Decision Making Upon arrival the patient is placed in room 1. A thorough history and physical exam is performed. The patient does appear resting comfortably on her 4 L oxygen. She is given a Duonebs breathing treatment. I did recommend laboratory studies and a chest x-ray. CBC is unremarkable. CMP shows CO2 of 35. Troponin is negative. BNP is 998. Chest x-ray demonstrates cardiomegaly and emphysema. No acute findings. I did discuss the results with the patient. I did recommend hospital admission. The patient refused stating that she wanted to go home as she now feels entirely better with her oxygen working. She has chronic respiratory failure and feels she is at her baseline. The patient will be disch arged home and she needs to follow-up with her primary care physician in one to 2 days. Return to the emergency department for any new or worsening symptoms. Return parameters were discussed in detail. The patient was discharged home in stable condition - Lab Data Result diagrams: 04/10/19 13:55 04/10/19 13:55 Lab Results 04/10/19 04/10/19 04/10/19 Range/Units 13:55 13:55 13:55 WBC 10.4 (3.8-10.6) k/uL RBC 3.80 (3.80-5.40) m/uL Hgb 11.2 L (11.4-16.0) gm/dL Hct 34.2 (34.0-46.0) % MCV 89.8 (80.0-100.0) fL MCH 29.5 (25.0-35.0) pg MCHC 32.9 (31.0-37.0) g/dL RDW 15.6 H (11.5-15.5) % Plt Count 144 L (150-450) k/uL Neutrophils % 85 % Lymphocytes % 8 % Monocytes % 5 % Eosinophils % 1 % Basophils % 0 % Neutrophils # 8.8 H (1.3-7.7) k/uL Lymphocytes # 0.8 L (1.0-4.8) k/uL Monocytes # 0.5 (0-1.0) k/uL Eosinophils # 0.1 (0-0.7) k/uL Basophils # 0.0 (0-0.2) k/uL PT (9.0-12.0) sec INR (<1.2) APTT (22.0-30.0) sec Sodium 142 (137-145) mmol/L Potassium 3.5 (3.5-5.1) mmol/L Chloride 100 (98-107) mmol/L Carbon Dioxide 35 H (22-30) mmol/L Anion Gap 7 mmol/L BUN 22 H (7-17) mg/dL Creatinine 0.97 (0.52-1.04) mg/dL Est GFR (CKD-EPI)AfAm 71 (>60 ml/min/1.73 sqM) Est GFR (CKD-EPI)NonAf 61 (>60 ml/min/1.73 sqM) Glucose 100 H (74-99) mg/dL Calcium 9.6 (8.4-10.2) mg/dL Total Bilirubin 0.7 (0.2-1.3) mg/dL AST 19 (14-36) U/L ALT 20 (9-52) U/L Alkaline Phosphatase 102 (38-126) U/L Troponin I (0.000-0.034) ng/mL NT-Pro-B Natriuret Pep 998 pg/mL Total Protein 6.0 L (6.3-8.2) g/dL Albumin 3.7 (3.5-5.0) g/dL 04/10/19 04/10/19 Range/Units 13:55 13:55 WBC (3.8-10.6) k/uL RBC (3.80-5.40) m/uL Hgb (11.4-16.0) gm/dL Hct (34.0-46.0) % MCV (80.0-100.0) fL MCH (25.0-35.0) pg MCHC (31.0-37.0) g/dL RDW (11.5-15.5) % Plt Count (150-450) k/uL Neutrophils % % Lymphocytes % % Monocytes % % Eosinophils % % Basophils % % Neutrophils # (1.3-7.7) k/uL Lymphocytes # (1.0-4.8) k/uL Monocytes # (0-1.0) k/uL Eosinophils # (0-0.7) k/uL Basophils # (0-0.2) k/uL PT 10.7 (9.0-12.0) sec INR 1.0 (<1.2) APTT 31.9 H (22.0-30.0) sec Sodium (137-145) mmol/L Potassium (3.5-5.1) mmol/L Chloride (98-107) mmol/L Carbon Dioxide (22-30) mmol/L Anion Gap mmol/L BUN (7-17) mg/dL Creatinine (0.52-1.04) mg/dL Est GFR (CKD-EPI)AfAm (>60 ml/min/1.73 sqM) Est GFR (CKD-EPI)NonAf (>60 ml/min/1.73 sqM) Glucose (74-99) mg/dL Calcium (8.4-10.2) mg/dL Total Bilirubin (0.2-1.3) mg/dL AST (14-36) U/L ALT (9-52) U/L Alkaline Phosphatase (38-126) U/L Troponin I <0.012 (0.000-0.034) ng/mL NT-Pro-B Natriuret Pep pg/mL Total Protein (6.3-8.2) g/dL Albumin (3.5-5.0) g/dL - EKG Data EKG Comments: EKG demonstrates a sinus tachycardia with a ventricular rate of 104. WA interval 160. QRS knee. QTC 473. There are no acute ST segment elevations or depressions concerning for ischemic changes Disposition Clinical Impression: COPD (chronic obstructive pulmonary disease) Disposition: HOME SELF-CARE Condition: Stable Instructions (If sedation given, give patient instructions): COPD (Chronic Obstructive Pulmonary Disease) (ED) Additional Instructions: I did recommend hospital admission. Return to the emergency department for any new or worsening symptoms. Follow-up with primary care doctor within 1-2 days. Is patient prescribed a controlled substance at d/c from ED?: No Referrals: Chris Lopez DO [Primary Care Provider] - 1-2 days Time of Disposition: 16:08
[2019-04-10 16:41] VITALS: BP 129/86; PULSE 87; RESP 16; TEMP 99
== END 2019-04-10 16:41 | disposition home or self-care (01) ==
LOC: SUPCPDRO 13:47 → EC 13:47
DX: J43.9 Emphysema, unspecified (principal); J96.11 Chronic respiratory failure with hypoxia; R00.0 Tachycardia, unspecified; I11.9 Hypertensive heart disease without heart failure; G89.29 Other chronic pain; E07.9 Disorder of thyroid, unspecified; K21.9 Gastro-esophageal reflux disease without esophagitis; F32.9 Major depressive disorder, single episode, unspecified; Z87.891 Personal history of nicotine dependence; Z88.5 Allergy status to narcotic agent; Z88.7 Allergy status to serum and vaccine; Z79.51 Long term (current) use of inhaled steroids; Z79.52 Long term (current) use of systemic steroids; Z79.82 Long term (current) use of aspirin; Z79.899 Other long term (current) drug therapy; Z85.118 Personal history of other malignant neoplasm of bronchus and lung; Z92.21 Personal history of antineoplastic chemotherapy; Z92.3 Personal history of irradiation; Z87.01 Personal history of pneumonia (recurrent); Z99.81 Dependence on supplemental oxygen; Z96.89 Presence of other specified functional implants; Z53.20 Procedure and treatment not carried out because of patient's decision for unspecified reasons
CPT/HCPCS: 36415; 71046; 80053; 83880; 84484; 85025; 85610; 85730; 93005; 94640; 99285

== ENCOUNTER → 2019-05-02 | Outpatient (CLI) | payer MEDICARE ==
--- NOTE | 2019-05-02 12:19 | CT ---
EXAMINATION TYPE: CT ChestAbdPelvis w con DATE OF EXAM: 05/02/2019 COMPARISON: January 30, 2019 HISTORY: SMALL CELL LUNG CA F/U OBSERVE FOR METS CT DLP: 1389 mGycm CONTRAST: CT scan of the chest, abdomen and pelvis is performed without Oral Contrast and with IV Contrast, pat ient injected with 80 mL of Isovue 300. CT Chest: LUNGS: Left basilar linear parenchymal scar persists. Additional parenchymal scarring noted right upp er lobe. No pulmonary nodule or mass is detected. No pleural effusion or CT evidence of interstitial lung disease. MEDIASTINUM: Thyroid goiter noted with substernal extension and luminal narrowing of the trachea as w ell as mass effect upon the esophagus. The ascending aorta diameter at the level of the main pulmonar y artery is 3.3 cm. Versus 3.2 cm previously. The main pulmonary artery diameter at the bifurcation i s 2.8 cm. The descending thoracic aorta is tortuous. Atheromatous changes are noted along the wall. T he flow lumen is dilated measuring 5.2 cm above the diaphragm versus 5.0 cm previously. Minimal fusif orm prominence within the mid abdominal aorta below the celiac axis and superior mesenteric artery. G reatest AP diameter is 2.4 cm. This terminates at the bifurcation. Vascular calcification is within t he aorta. The heart is enlarged. No evidence for mediastinal mass or adenopathy. HILAR STRUCTURES: No evidence for mass. No hilar adenopathy is appreciated. OTHER: No significant abnormality. CONTRAST CT ABDOMEN AND PELVIS FINDINGS: LIVER/GB: No calcified gallstones. No space occupying hepatic lesion. Biliary tree is of normal ca liber. PANCREAS: No inflammation. No distinct mass. SPLEEN: No splenic enlargement. No lesion seen. ADRENALS: No nodule. No thickening. KIDNEYS/BLADDER: Right-sided nephrectomy change. No hydronephrosis. No nephrolithiasis. No distinc t solid renal mass. Renal cystic changes noted. BOWEL: Normal appendix. Normal bowel caliber. No inflammation. Severe changes of sigmoid diverticul osis without diverticulitis. GENITAL ORGANS: No gross abnormality. LYMPH NODES: No greater than 1cm abdominal or pelvic lymph nodes are appreciated. AORTA: No significant abnormality. OSSEOUS STRUCTURES: No fractures of the left superior and inferior pubic ramus OTHER: No significant additional abnormality is seen. IMPRESSION: 1. No evidence for metastatic disease or recurrent disease. 2. Mild progression of ascending thoracic aortic aneurysm. 3. Large goiter with mediastinal extension and tracheal and esophageal narrowing noted.
== END | disposition home or self-care (01) ==
LOC: RADCTMAIN 09:25
PROVIDERS: ATTEND Internal Medicine Hematology & Oncology
DX: I71.2 Thoracic aortic aneurysm, without rupture (principal); C34.90 Malignant neoplasm of unspecified part of unspecified bronchus or lung
CPT/HCPCS: 82565; 84520; 71260; 74177; 36415; Q9967

== ENCOUNTER → 2019-05-22 | Outpatient (CLI) | payer MEDICARE ==
--- NOTE | 2019-05-23 06:27 | MR ---
EXAMINATION TYPE: MR brain wo/w con DATE OF EXAM: 05/22/2019 COMPARISON: 01/12/2019 and older MRIs. HISTORY: 69-year-old female Lung cancer-3 month f/u TECHNIQUE: Multiplanar, multisequence images of the brain and brainstem were acquired before and aft er administration of 7 mL IV Gadavist. Diffusion weighted imaging is performed. FINDINGS: No evidence for acute infarction, hemorrhage, mass, mass effect, midline shift, herniation, effacemen t of basal cisterns, or extra-axial fluid collection. The ventricles and sulci are age-appropriate. There is mild generalized supratentorial volume loss. Major intracranial flow voids are intact. T2/FLAIR weighted sequences show extensive scattered right white matter change within both cerebral h emispheres including the subcortical, periventricular, and deep white matter regions. Midline structures demonstrate normal morphology. The craniocervical junction is normal. Post contrast images demonstrate no new areas of focal or abnormal enhancement. Dural venous sinuses are patent. Complete opacification of the right maxillary sinus. 1.7 cm mucosal retention cyst along the floor of the left maxillary sinus. Globes appear intact. Some prominent fluid along the left optic nerve is u nchanged from 01/12/2019 without flattening of the posterior globe. IMPRESSION: 1. Stable mild generalized atrophy. No acute intracranial abnormality seen. 2. No enhancing lesions to suggest brain metastases.. 3. Stable moderate to severe scattered burden of T2 bright white matter change, nonspecific, likely r eflecting chronic small vessel ischemic disease. Chronic migraines, demyelinating disease, Lyme's dis ease/vasculitis are additional differential considerations. 4. Continued severe chronic right maxillary sinus disease.
== END ==
LOC: RADMRIMAIN 12:46
PROVIDERS: ATTEND Radiology Radiation Oncology
DX: G31.9 Degenerative disease of nervous system, unspecified (principal); C34.32 Malignant neoplasm of lower lobe, left bronchus or lung; R90.89 Other abnormal findings on diagnostic imaging of central nervous system; Z92.3 Personal history of irradiation; Z87.891 Personal history of nicotine dependence
CPT/HCPCS: 70553; A9585

== ENCOUNTER → 2019-08-01 | Outpatient (CLI) | payer MEDICARE ==
--- NOTE | 2019-08-01 12:49 | CT ---
EXAMINATION TYPE: CT ChestAbdPelvis w con DATE OF EXAM: 08/01/2019 COMPARISON: 05/02/2019 HISTORY: Lung CA CT DLP: 761.9 mGycm CONTRAST: CT scan of the chest, abdomen and pelvis is performed with Oral Contrast and with IV Contrast, patien t injected with 100 mL of Isovue 300. CT Chest: LUNGS: Left basilar linear parenchymal scar persists. Additional parenchymal scarring noted right upp er lobe. There is a new nodule left infrahilar region measuring 1.2 cm image 37. No pleural effusion or CT evidence of interstitial lung disease. Emphysematous bullae are noted. MEDIASTINUM: Ectasia of the thoracic aorta with aneurysm noted at the aortic hiatus measuring 5.2 cm AP dimension versus 5.2 cm previously. There is mural thrombus noted. No significant changes seen. Th e heart is enlarged. No evidence for mediastinal mass or adenopathy. HILAR STRUCTURES: No evidence for mass. No hilar adenopathy is appreciated. OTHER: Thyroid glandular enlargement with nodularity and substernal extension is unchanged. CONTRAST CT ABDOMEN AND PELVIS FINDINGS: LIVER/GB: New masses are identified within the liver totaling approximately 13-15 in number. The larg est mass is noted within the inferior tip of the right hepatic lobe measuring 6.3 x 7.2 x 6.8 cm. The findings are compatible with metastatic disease to the liver. PANCREAS: No inflammation. No distinct mass. SPLEEN: No splenic enlargement. No lesion seen. ADRENALS: No nodule. No thickening. KIDNEYS/BLADDER: Changes of right-sided nephrectomy. Right renal fossa is free of mass lesion. No hy dronephrosis. Nonobstructing nephrolithiasis left kidney. Renal cystic changes identified left kidney . BOWEL: Normal appendix. Normal bowel caliber. No inflammation. GENITAL ORGANS: No gross abnormality. LYMPH NODES: No greater than 1cm abdominal or pelvic lymph nodes are appreciated. AORTA: No significant abnormality. OSSEOUS STRUCTURES: Remote fractures of the left inferior and superior pubic rami. Stable compression fractures involving several thoracic segments are unchanged. No new fractures identified. OTHER: No significant additional abnormality is seen. IMPRESSION: 1. There is a new small left infrahilar pulmonary nodule noted measuring 1.2 cm for which recurrence is difficult to exclude. 2. Multiple new hepatic mass is identified suspicious for metastatic disease. Stable thoracic suraj gino fractures and remote fractures of the left hemipelvis. A Document Only message has been documented for Ishmael Varghese [id number] in the [employer] Critical Result system on 08/01/2019 12:47 PM, Message ID [id number].
== END | disposition home or self-care (01) ==
LOC: RADCTMAIN 09:13
PROVIDERS: ATTEND Internal Medicine Hematology & Oncology
DX: C34.90 Malignant neoplasm of unspecified part of unspecified bronchus or lung (principal); R16.0 Hepatomegaly, not elsewhere classified
CPT/HCPCS: 82565; 84520; 71260; 74177; 36415; Q9967 ×2

== ENCOUNTER 2019-08-16 09:07 | Day surgery (SDC) | payer MEDICARE ==
[2019-08-16] MEDS ORDERED: MORPHINE SULFATE 4 MG/ML SYRINGE IVP STA (09:34)
[2019-08-16] MEDS ORDERED: MORPHINE SULFATE 2 MG/ML SYRINGE IVP STA (09:38)
[2019-08-16 09:47] VITALS: TEMP 97.9
[2019-08-16 09:53] LABS: Mean Platelet Volume 6.9; Platelet Count 226 k/uL (150-450)
[2019-08-16 10:03] LABS: INR 0.9 (<1.2); Prothrombin Time 9.5 sec (9.0-12.0)
[2019-08-16] MEDS ORDERED: ALPRAZolam 0.25 MG TAB PO STA (10:05)
--- NOTE | 2019-08-16 12:56 | US ---
EXAMINATION TYPE: US biopsy liver DATE OF EXAM: 08/16/2019 HISTORY: Liver masses, history of lung cancer, metastatic liver masses. FINDINGS: Maximal barrier technique was utilized. Hand hygiene achieved with soap and water. The ski n overlying a suitable path to the patient's mass in the left lobe liver was localized with ultrasoun d and the overlying skin prepped and draped. Ultrasound was utilized with sterile technique. Lidocai ne was used for local anesthesia. A skin alesha was made with a scalpel. An 18-gauge needle was adva nced under direct ultrasound guidance and core specimen obtained of the mass. Single pass was made. Specimen submitted in formalin to Pathology. Following the procedure, hemostasis achieved and the pa tient is discharged in stable condition without complication. IMPRESSION:STATUS POST ULTRASOUND GUIDED CORE BIOPSY OF left lobe liver MASS, PATHOLOGY IS PENDING. THIS PROCEDURE IS PERFORMED BY THE UNDERSIGNED.
[2019-08-16 13:21] VITALS: BP 125/74
[2019-08-16] MEDS ORDERED: HYDROcodone/APAP 7.5-325MG 1 EACH TAB PO ONE (14:33)
[2019-08-16] MEDS ORDERED: HYDROcodone/APAP 7.5-325MG 1 EACH TAB ONE (14:35)
[2019-08-16 16:08] VITALS: PULSE 80; RESP 22
== END 2019-08-16 13:30 | disposition home or self-care (01) ==
LOC: RADPROMAIN 09:07
PROVIDERS: ATTEND Internal Medicine Hematology & Oncology
DX: C78.7 Secondary malignant neoplasm of liver and intrahepatic bile duct (principal); C34.92 Malignant neoplasm of unspecified part of left bronchus or lung; K21.9 Gastro-esophageal reflux disease without esophagitis; J96.20 Acute and chronic respiratory failure, unspecified whether with hypoxia or hypercapnia; E87.6 Hypokalemia; I10 Essential (primary) hypertension; E05.00 Thyrotoxicosis with diffuse goiter without thyrotoxic crisis or storm; J44.9 Chronic obstructive pulmonary disease, unspecified; Z90.49 Acquired absence of other specified parts of digestive tract; Z99.81 Dependence on supplemental oxygen; Z90.710 Acquired absence of both cervix and uterus; Z80.0 Family history of malignant neoplasm of digestive organs; Z87.891 Personal history of nicotine dependence; Z87.19 Personal history of other diseases of the digestive system; Z92.21 Personal history of antineoplastic chemotherapy; Z79.52 Long term (current) use of systemic steroids; Z90.5 Acquired absence of kidney
CPT/HCPCS: 47000; 76942; 85049; 85610; 88307; 88341; 88342

== ENCOUNTER → 2019-08-27 | Outpatient (CLI) | payer MEDICARE ==
--- NOTE | 2019-08-27 14:55 | MR ---
EXAMINATION TYPE: MR brain wo/w con DATE OF EXAM: 08/27/2019 COMPARISON: NONE HISTORY: Ca of lung, nausea, vomiting TECHNIQUE: Multiplanar, multisequence images of the brain and brainstem is performed without and with IV contras t, utilizing 7 mL intravenous Gadavist . FINDINGS: Diffusion weighted images demonstrate no evidence of a recent infarct or other diffusion abnormality. There is no extra-axial fluid collection. Confluent areas of T2/FLAIR hyperintensity are seen withi n the periventricular and subcortical white matter moderate to severe burden for this patient's age. The ventricular system and cisternal spaces are symmetrically prominent compatible with age-related v olume loss. Midline structures demonstrate normal morphology. The craniocervical junction appears within normal limits. Post contrast images are degraded by patient motion but demonstrate no gross evidence of abn ormal enhancement. The visualized demonstrate a 2.2 cm left maxillary mucosal retention cyst and near complete opacification of the right maxillary sinus. Scant mucosal thickening is also seen in the et hmoid sinuses. Frontal and sphenoid sinuses are well aerated as are the mastoid air cells. IMPRESSION: 1. Post contrast images are degraded by patient motion however no erosive evidence of abnormal intrac ranial enhancement is seen. No findings to suspect intracranial metastasis. 2. Moderate to severe burden nonspecific white matter change for the patient's age, most commonly on the basis of chronic microangiopathy. 3. Moderate paranasal sinus disease with near complete opacification of the right maxillary sinus and 2.2 cm left maxillary mucosal retention cyst.
== END | disposition home or self-care (01) ==
LOC: RADMRIMAIN 11:40
PROVIDERS: ATTEND Internal Medicine Hematology & Oncology
DX: C34.90 Malignant neoplasm of unspecified part of unspecified bronchus or lung (principal); R90.89 Other abnormal findings on diagnostic imaging of central nervous system
CPT/HCPCS: 70553; A9585

== ENCOUNTER 2019-09-07 13:32 | Inpatient (IN) | payer MEDICARE ==
[2019-09-07 14:14] LABS: Basophils % (A) 0 %; Eosinophils # (A) 0.2 k/uL (0-0.7); Eosinophils % (A) 1 %; HCT 37.9 % (34.0-46.0); HGB 11.8 gm/dL (11.4-16.0); Lymphocytes # (A) 0.3 k/uL (1.0-4.8); Lymphocytes % (A) 2 %; MCHC 31.2 g/dL (31.0-37.0); MCV 92.8 fL (80.0-100.0); Mean Platelet Volume 7.3; Monocytes # (A) 0.7 k/uL (0-1.0); Monocytes % (A) 4 %; Neutrophils # (A) 14.1 k/uL (1.3-7.7); Neutrophils % (A) 92 %; Platelet Count 216 k/uL (150-450); RBC 4.08 m/uL (3.80-5.40); RDW 14.6 % (11.5-15.5); WBC 15.4 k/uL (3.8-10.6)
[2019-09-07 14:30] LABS: Albumin 3.3 g/dL (3.5-5.0); Calcium 9.2 mg/dL (8.4-10.2); Potassium 3.8 mmol/L (3.5-5.1); Total Protein 6.1 g/dL (6.3-8.2)
--- NOTE | 2019-09-07 14:34 | ED ---
General Adult HPI - General Chief complaint: Shortness of Breath Stated complaint: SOB/abdominal pain Time Seen by Provider: 09/07/19 13:40 Source: patient, family, RN notes reviewed, old records reviewed Mode of arrival: wheelchair Limitations: no limitations - History of Present Illness Initial comments: This is a 69-year-old female presents emergency Department with a past medical history significant for lung cancer. Patient states her abdomen is becoming more more distended any increasing abdominal pain over the last month. Patient states she's had no vomiting or diarrhea. Patient denies any fever or chills patient is not here for any shortness of breath or difficulty breathing she states is chronic and unchanged. Patient states she feels as though her abdomen has fluid in and she talked to a physician that sent her into the emergency department. - Related Data Home Medications Medication Instructions Recorded Confirmed Methimazole [Tapazole] 7.5 mg PO DAILY 07/25/18 08/16/19 Montelukast [Singulair] 10 mg PO HS 09/21/18 08/16/19 DULoxetine HCL [Cymbalta] 60 mg PO DAILY 01/09/19 08/16/19 Budesonide 1 mg INHALATION RT-BID 04/10/19 08/16/19 Furosemide [Lasix] 10 mg PO DAILY 04/10/19 08/16/19 Metoprolol Succinate [Toprol XL] 25 mg PO DAILY 04/10/19 08/16/19 Ondansetron HCl [Zofran] 4 mg PO Q8H PRN 04/10/19 08/16/19 Polyethylene Glycol 3350 [Miralax] 17 gm PO DAILY PRN 04/10/19 08/16/19 Potassium Bicarbonate/Cit AC 20 meq PO DAILY 04/10/19 08/16/19 [Klor-Con 25 (Effer. Tab)] predniSONE 20 mg PO DAILY 04/10/19 08/16/19 traZODone HCL 100 mg PO HS 04/10/19 08/16/19 guaiFENesin [Mucinex] 600 mg PO DAILY 08/16/19 08/16/19 Previous Rx's Medication Instructions Recorded Atorvastatin [Lipitor] 10 mg PO HS #30 tab 08/31/18 amLODIPine [Norvasc] 10 mg PO DAILY #30 tab 10/16/18 Allergies Allergy/AdvReac Type Severity Reaction Status Date / Time Influenza Virus Vaccines Allergy Dyspnea Verified 09/07/19 13:41 hydromorphone [From Dilaudid] AdvReac Hallucinati Verified 09/07/19 13:41 ons Review of Systems ROS Statement: Those systems with pertinent positive or pertinent negative responses have been documented in the HPI. ROS Other: All systems not noted in ROS Statement are negative. Past Medical History Past Medical History: Asthma, Cancer, COPD, GERD/Reflux, Hyperlipidemia, Hypertension, Pneumonia, Renal Disease, Thyroid Disorder Additional Past Medical History / Comment(s): Pt recently admitted to [facility] on 12/23/18 with psychosis, compression fracture L1, pneumonia, hypoxia, respiratory failure, acute on chronic COPD, UTI/kidney injury. 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 Lung CA History of Any Multi-Drug Resistant Organisms: None Reported Past Surgical History: Cholecystectomy, Hysterectomy, Orthopedic Surgery Additional Past Surgical History / Comment(s): Bronchoscopy with lung bx, pulmonary stent, EGD, colonoscopy/polypectomy with bleed, R nephrectomy 1981, 2011 laparotomy with lysis of adhesions, L shoulder and collar bone surgery, total hysterectomy, cataract surg-lens implants. Past Anesthesia/Blood Transfusion Reactions: No Reported Reaction Additional Past Anesthesia/Blood Transfusion Reaction / Comment(s): Pt has never received blood. Past Psychological History: Depression Smoking Status: Former smoker Past Alcohol Use History: None Reported Past Drug Use History: None Reported - Past Family History Father Family Medical History: Cancer Additional Family Medical History / Comment(s): Pancreatic cancer and passed when he was 60 Mother Family Medical History: No Reported History Additional Family Medical History / Comment(s): Alcohol abuse General Exam - General Exam Comments Initial Comments: GENERAL: Patient is well-developed and well-nourished. Patient is nontoxic and well- hydrated and is in mild distress. ENT: Neck is soft and supple. No significant lymphadenopathy is noted. Oropharynx is clear. Moist mucous membranes. Neck has full range of motion without eliciting any pain. EYES: The sclera were anicteric and conjunctiva were pink and moist. Extraocular movements were intact and pupils were equal round and reactive to light. Eyelids were unremarkable. PULMONARY: Unlabored respirations. Good breath sounds bilaterally. No audible rales rhonchi or wheezing was noted. CARDIOVASCULAR: There is a regular rate and rhythm without any murmurs gallops or rubs. ABDOMEN: Abdomen is distended. No pain on palpation SKIN: Skin is clear with no lesions or rashes and otherwise unremarkable. NEUROLOGIC: Patient is alert and oriented x3. Cranial nerves II through XII are grossly intact. Motor and sensory are also intact. Normal speech, volume and content. Symmetrical smile. MUSCULOSKELETAL: Normal extremities with adequate strength and full range of motion. LYMPHATICS: No significant lymphadenopathy is noted PSYCHIATRIC: Normal psychiatric evaluation. Limitations: no limitations Course Vital Signs 09/07/19 09/07/19 13:39 14:02 Temperature 98.7 F Pulse Rate 96 Respiratory 16 22 Rate Blood Pressure 112/73 O2 Sat by Pulse 95 Oximetry Medical Decision Making - Medical Decision Making EKG shows normal sinus rhythm at 97 bpm AR interval 172 QRS 78 QT interval 356 QTC is 452 per patient's EKG shows no ST segment elevation or depression. Patient's urine came back positive for an infection at 359. I immediately ordered a blood culture a lactic acid and started the patient on Rocephin Patient CT showed no ascites and showed metastatic disease to the liver with a very enlarged liver I spoke with Dr. Avery he agreed to admit the patient admitted the patient I consult Dr. Varghese - Lab Data Result diagrams: 09/07/19 13:53 09/07/19 13:53 Lab Results 09/07/19 09/07/19 09/07/19 Range/Units 13:53 13:53 14:25 WBC 15.4 H (3.8-10.6) k/uL RBC 4.08 (3.80-5.40) m/uL Hgb 11.8 (11.4-16.0) gm/dL Hct 37.9 (34.0-46.0) % MCV 92.8 (80.0-100.0) fL MCH 29.0 (25.0-35.0) pg MCHC 31.2 (31.0-37.0) g/dL RDW 14.6 (11.5-15.5) % Plt Count 216 (150-450) k/uL Neutrophils % 92 % Lymphocytes % 2 % Monocytes % 4 % Eosinophils % 1 % Basophils % 0 % Neutrophils # 14.1 H (1.3-7.7) k/uL Lymphocytes # 0.3 L (1.0-4.8) k/uL Monocytes # 0.7 (0-1.0) k/uL Eosinophils # 0.2 (0-0.7) k/uL Basophils # 0.0 (0-0.2) k/uL Sodium 138 (137-145) mmol/L Potassium 3.8 (3.5-5.1) mmol/L Chloride 101 (98-107) mmol/L Carbon Dioxide 33 H (22-30) mmol/L Anion Gap 4 mmol/L BUN 27 H (7-17) mg/dL Creatinine 1.01 (0.52-1.04) mg/dL Est GFR (CKD-EPI)AfAm 67 (>60 ml/min/1.73 sqM) Est GFR (CKD-EPI)NonAf 58 (>60 ml/min/1.73 sqM) Glucose 107 H (74-99) mg/dL Plasma Lactic Acid Arben (0.7-2.0) mmol/L Calcium 9.2 (8.4-10.2) mg/dL Total Bilirubin 1.0 (0.2-1.3) mg/dL AST 94 H (14-36) U/L ALT 106 H (4-34) U/L Alkaline Phosphatase 401 H (38-126) U/L Total Protein 6.1 L (6.3-8.2) g/dL Albumin 3.3 L (3.5-5.0) g/dL Amylase 82 (30-110) U/L Lipase 164 (23-300) U/L Urine Color Yellow Urine Appearance Cloudy H (Clear) Urine pH 5.5 (5.0-8.0) Ur Specific [place] 1.014 (1.001-1.035) Urine Protein Trace H (Negative) Urine Glucose (UA) Negative (Negative) Urine Ketones Negative (Negative) Urine Blood Negative (Negative) Urine Nitrite Positive H (Negative) Urine Bilirubin Negative (Negative) Urine Urobilinogen <2.0 (<2.0) mg/dL Ur Leukocyte Esterase Moderate H (Negative) Urine RBC 2 (0-5) /hpf Urine WBC 25 H (0-5) /hpf Ur Squamous Epith Cells 1 (0-4) /hpf Calcium Oxalate Crystal Few H (None) /hpf Amorphous Sediment Rare H (None) /hpf Urine Bacteria Many H (None) /hpf Hyaline Casts 1 (0-2) /lpf Urine Mucus Rare H (None) /hpf 09/07/19 Range/Units 16:14 WBC (3.8-10.6) k/uL RBC (3.80-5.40) m/uL Hgb (11.4-16.0) gm/dL Hct (34.0-46.0) % MCV (80.0-100.0) fL MCH (25.0-35.0) pg MCHC (31.0-37.0) g/dL RDW (11.5-15.5) % Plt Count (150-450) k/uL Neutrophils % % Lymphocytes % % Monocytes % % Eosinophils % % Basophils % % Neutrophils # (1.3-7.7) k/uL Lymphocytes # (1.0-4.8) k/uL Monocytes # (0-1.0) k/uL Eosinophils # (0-0.7) k/uL Basophils # (0-0.2) k/uL Sodium (137-145) mmol/L Potassium (3.5-5.1) mmol/L Chloride (98-107) mmol/L Carbon Dioxide (22-30) mmol/L Anion Gap mmol/L BUN (7-17) mg/dL Creatinine (0.52-1.04) mg/dL Est GFR (CKD-EPI)AfAm (>60 ml/min/1.73 sqM) Est GFR (CKD-EPI)NonAf (>60 ml/min/1.73 sqM) Glucose (74-99) mg/dL Plasma Lactic Acid Arben 1.0 (0.7-2.0) mmol/L Calcium (8.4-10.2) mg/dL Total Bilirubin (0.2-1.3) mg/dL AST (14-36) U/L ALT (4-34) U/L Alkaline Phosphatase (38-126) U/L Total Protein (6.3-8.2) g/dL Albumin (3.5-5.0) g/dL Amylase (30-110) U/L Lipase (23-300) U/L Urine Color Urine Appearance (Clear) Urine pH (5.0-8.0) Ur Specific [place] (1.001-1.035) Urine Protein (Negative) Urine Glucose (UA) (Negative) Urine Ketones (Negative) Urine Blood (Negative) Urine Nitrite (Negative) Urine Bilirubin (Negative) Urine Urobilinogen (<2.0) mg/dL Ur Leukocyte Esterase (Negative) Urine RBC (0-5) /hpf Urine WBC (0-5) /hpf Ur Squamous Epith Cells (0-4) /hpf Calcium Oxalate Crystal (None) /hpf Amorphous Sediment (None) /hpf Urine Bacteria (None) /hpf Hyaline Casts (0-2) /lpf Urine Mucus (None) /hpf Disposition Clinical Impression: Metastatic lung cancer (metastasis from lung to other site), Liver metastases, Urinary tract infection Disposition: ADMITTED IP TO THIS HOSP Referrals: Chris Lopez DO [Primary Care Provider] - 1-2 days Time of Disposition: 16:56
[2019-09-07 15:18] LABS: Amorphous Sediment,Urine Rare /hpf; Appearance,Urine Cloudy (Clear); Bacteria,Urine Many /hpf; Bilirubin,Urine Negative (Negative); Blood,Urine Negative (Negative); Calcium Oxalate Crystals,Urine Few /hpf; Color,Urine Yellow; Glucose,Urine (UA) Negative (Negative); Hyaline Casts,Urine 1 /lpf (0-2); Ketones,Urine Negative (Negative); Leukocyte Esterase,Urine Moderate (Negative); Mucus,Urine Rare /hpf; Nitrite,Urine Positive (Negative); PH, Urine 5.5 (5.0-8.0); Protein,Urine Trace (Negative); RBC,Urine 2 /hpf (0-5); Specific Gravity,Urine 1.014 (1.001-1.035); Squamous Epithelial Cell,Urine 1 /hpf (0-4); Urobilinogen,Urine <2.0 mg/dL (<2.0); WBC,Urine 25 /hpf (0-5)
--- NOTE | 2019-09-07 15:48 | CT ---
EXAMINATION TYPE: CT ChestAbdPelvis w con DATE OF EXAM: 09/07/2019 COMPARISON: Prior exam 08/01/2019 HISTORY: epigastric/periumbilical pain x2 weeks CT DLP: 889.1 mGycm Automated exposure control for dose reduction was used. CONTRAST: CT scan of the chest, abdomen and pelvis is performed without Oral Contrast and with IV Contrast, pat ient injected with 80 mL of Isovue 300. FINDINGS: Periumbilical and supraumbilical subxiphoid hernias present which contains fat which may be increased in size, questionable associated inflammatory change at the margins has developed in the i nterval. Multinodular goiter change again seen. LUNGS: The lungs are stable. There is no pleural effusion or pneumothorax seen. The tracheobronchi al tree is patent. MEDIASTINUM: There are no greater than 1 cm hilar or mediastinal lymph nodes. A pericardial effusion is seen similar to prior. AORTA: Patient's distal thoracic aorta aneurysm with luminal plaque is again noted. OTHER: No additional significant abnormality is seen. LIVER/GB: Metastatic disease to the enlarged liver is again noted. PANCREAS: No significant abnormality is seen. SPLEEN: No significant abnormality is seen. ADRENALS: No significant abnormality is seen. KIDNEYS: No significant change is seen, nonobstructive punctate calculus present within the lower milady e the left kidney, right kidney is not seen. REPRODUCTIVE ORGANS: No gross abnormality seen. BOWEL: Extensive diverticular change present within the colon. FREE AIR: No Free Air visible. ASCITES: None seen. RETROPERITONEAL ADENOPATHY: No retroperitoneal adenopathy is seen. LYMPH NODES: No greater than 1 cm abdominal or pelvic lymph nodes are appreciated. URINARY BLADDER: No significant abnormality is seen. PELVIC ADENOPATHY: None visualized. OSSEOUS STRUCTURES: No significant interval change is seen nonunion of a fracture lateral margin of the superior pubic ramus and inferior pubic ramus shows a similar appearance. There is a compression deformity present at superior endplate L1, T11 shows marked compression deformity with retropulsion, T8 also shows anterior wedge compression deformity as does C5, T2 also shows anterior wedge compressi on. IMPRESSION: Metastatic disease. Correlate for possible inflammatory change in the periumbilical, supr aumbilical location possibly due to fat necrosis. Large aortic aneurysm. Additional findings above.
[2019-09-07] MEDS ORDERED: cefTRIAXone IN SWFI 1,000 MG/10 ML SYRINGE IVP STA (15:59)
[2019-09-07] MEDS ORDERED: ONDANSETRON 4 MG TAB PO PRN (19:49)
[2019-09-07] MEDS ORDERED: ALBUTEROL NEBULIZED 2.5 MG/3 ML INHALATION PRN (19:49)
[2019-09-07] MEDS: MORPHINE SULFATE 4 MG/ML SYRINGE IVP PRN (19:58)
[2019-09-07] MEDS ORDERED: MONTELUKAST 10 MG TAB PO SCH (21:00)
[2019-09-07] MEDS ORDERED: traZODone HCL 100 MG TAB PO SCH (21:00)
[2019-09-07] MEDS ORDERED: ATORVASTATIN 10 MG TAB PO SCH (21:00)
[2019-09-07] MEDS: IPRATROPIUM-ALBUTEROL 3 ML NEB INHALATION PRN (21:33)
[2019-09-07] MEDS: BUDESONIDE 1 MG/2 ML NEBU INHALATION SCH (21:33)
[2019-09-08] MEDS: IPRATROPIUM-ALBUTEROL 3 ML NEB INHALATION PRN ×2 (07:22→11:06)
[2019-09-08] MEDS: BUDESONIDE 1 MG/2 ML NEBU INHALATION SCH (07:22)
[2019-09-08] MEDS: IPRATROPIUM 0.5 MG/2.5 ML NEBU INHALATION SCH ×3 (07:39→15:45)
[2019-09-08] MEDS: MORPHINE SULFATE 4 MG/ML SYRINGE IVP PRN ×2 (08:57→13:46)
[2019-09-08] MEDS ORDERED: DULoxetine HCL 60 MG CAPSULE.DR PO SCH (09:00)
[2019-09-08] MEDS ORDERED: METOPROLOL SUCCINATE (ER) 25 MG TAB.ER.24H PO SCH (09:00)
[2019-09-08] MEDS ORDERED: METHIMAZOLE 5 MG TAB PO SCH (09:00)
[2019-09-08] MEDS ORDERED: amLODIPine 10 MG TAB PO SCH (09:00)
[2019-09-08] MEDS ORDERED: FUROSEMIDE 10 MG TAB PO SCH (09:00)
[2019-09-08 11:45] VITALS: BP 113/70; PULSE 76; RESP 20; TEMP 97.9
[2019-09-08] MEDS ORDERED: PANTOPRAZOLE 40 MG TABLET PO STA (15:12)
--- NOTE | 2019-09-08 15:49 | P.DS ---
Providers Date of admission: 09/07/19 16:58 Attending physician: Iva Avery Consults: 09/07/19 16:57 Consult Physician Urgent Consulting Provider: Ishmael Varghese Consult Reason/Comments: Lung cancer with metastatic disease to the left Do you want consulting provider notified?: Yes Primary care physician: [facility] Course: as mentioned in HPI Plan - Discharge Summary New Discharge Prescriptions: New Cefuroxime Axetil [Ceftin] 500 mg PO BID 3 Days #6 tab Omeprazole [PriLOSEC] 40 mg PO AC-BRKFST #14 capsule. traMADol HCL [Ultram] 50 mg PO Q4HR PRN 3 Days #18 tab PRN Reason: Pain Continue Methimazole [Tapazole] 7.5 mg PO MOWEFR Atorvastatin [Lipitor] 10 mg PO HS #30 tab Montelukast [Singulair] 10 mg PO HS DULoxetine HCL [Cymbalta] 60 mg PO DAILY traZODone HCL 100 mg PO HS Ondansetron HCl [Zofran] 4 mg PO Q8H PRN PRN Reason: Nausea Budesonide 1 mg INHALATION RT-BID Metoprolol Succinate [Toprol XL] 25 mg PO DAILY predniSONE 10 - 20 mg PO DAILY Ipratropium-Albuterol Nebulize [Duoneb 0.5 mg-3 mg/3 ml Soln] 3 ml INHALATION RT-QID PRN PRN Reason: Shortness Of Breath Umeclidinium [place] [Incruse Ellipta] 1 puff INHALATION RT-DAILY Albuterol Sulfate [Proair Hfa] 2 puff INHALATION RT-Q4H PRN PRN Reason: Shortness Of Breath Methimazole [Tapazole] 5 mg PO SUTUTHSA Changed Furosemide [Lasix] 10 mg PO DAILY PRN #0 PRN Reason: Edema amLODIPine [Norvasc] 5 mg PO DAILY #30 tab Discharge Medication List Methimazole [Tapazole] 7.5 mg PO MOWEFR 07/25/18 [History] Atorvastatin [Lipitor] 10 mg PO HS #30 tab 08/31/18 [Rx] Montelukast [Singulair] 10 mg PO HS 09/21/18 [History] DULoxetine HCL [Cymbalta] 60 mg PO DAILY 01/09/19 [History] Budesonide 1 mg INHALATION RT-BID 10/15/19 [History] Metoprolol Succinate [Toprol XL] 25 mg PO DAILY 04/10/19 [History] Ondansetron HCl [Zofran] 4 mg PO Q8H PRN 04/10/19 [History] traZODone HCL 100 mg PO HS 04/10/19 [History] Albuterol Sulfate [Proair Hfa] 2 puff INHALATION RT-Q4H PRN 09/07/19 [History] Ipratropium-Albuterol Nebulize [Duoneb 0.5 mg-3 mg/3 ml Soln] 3 ml INHALATION RT-QID PRN 09/07/19 [History] Methimazole [Tapazole] 5 mg PO SUTUTHSA 09/07/19 [History] Umeclidinium [place] [Incruse Ellipta] 1 puff INHALATION RT-DAILY 09/07/19 [History] predniSONE 10 - 20 mg PO DAILY 09/07/19 [History] Cefuroxime Axetil [Ceftin] 500 mg PO BID 3 Days #6 tab 09/08/19 [Rx] Furosemide [Lasix] 10 mg PO DAILY PRN #0 09/08/19 [Rx] Omeprazole [PriLOSEC] 40 mg PO AC-BRKFST #14 capsule. 09/08/19 [Rx] amLODIPine [Norvasc] 5 mg PO DAILY #30 tab 09/08/19 [Rx] traMADol HCL [Ultram] 50 mg PO Q4HR PRN 3 Days #18 tab 09/08/19 [Rx] Follow up Appointment(s)/Referral(s): Chris Lopez DO [Primary Care Provider] - 3 Days (Office is closed at time of discharge patient to call for appt Tuesday) Patient Instructions/Handouts: Cefuroxime (By mouth), Omeprazole (By mouth), Tramadol (By mouth) Discharge Disposition: HOME SELF-CARE Care Plan Goals (MU): 1. Activity limited until follow up 2. Full liquid diet, advance as tolerated.
--- NOTE | 2019-09-08 15:49 | P.HPIM ---
History of Present Illness patient is a pleasant 69-year-old female came in With complaints of abdominal pain mostly in the epigastric area but diffuse, patient was nauseous but did not vomit patient's abdominal pain is moderate sharp in nature. Patient does have history of lung cancer patient is metastatic disease with the metastasis to liver and now some chronically elevated liver enzymes. Patient was also complaining of shortness of breath which improved at this time patient does have history of COPD patient has a diagnosis of lung cancer stage IV. CAT scan of the abdomen was obtained which was showing ventral hernia which is appreciable and clinical exam as well with the some inflammation of the surrounding fat no obvious incarceration. I offered the surgical evaluation for this to the patient but patient's the is wishing to go home. Patient will be given a dose of Protonix will be discharged on Prilosec if she is able to tolerate full liquid diet patient will be discharged with the instructions that if her abdominal pain gets worse and it to come back Review of Systems REVIEW OF SYSTEMS: CONSTITUTIONAL: No fever, no malaise, no fatigue. HEENT: No recent visual problems or hearing problems. Denied any sore throat. CARDIOVASCULAR: No chest pain, orthopnea, PND, no palpitations, no syncope. PULMONARY: No shortness of breath, no cough, no hemoptysis. GASTROINTESTINAL: as mentioned in HPI NEUROLOGICAL: No headaches, no weakness, no numbness. HEMATOLOGICAL: Denies any bleeding or petechiae. GENITOURINARY: Denies any burning micturition, frequency, or urgency. MUSCULOSKELETAL/RHEUMATOLOGICAL: Denies any joint pain, swelling, or any muscle pain. ENDOCRINE: Denies any polyuria or polydipsia. The rest of the 14-point review of systems is negative. Past Medical History Past Medical History: Asthma, Cancer, COPD, GERD/Reflux, Hyperlipidemia, Hyper tension, Pneumonia, Thyroid Disorder Additional Past Medical History / Comment(s): Pt recently admitted to [facility] on 12/23/18 with psychosis, compression fracture L1, pneumonia, hypoxia, respiratory failure, acute on chronic COPD, UTI/kidney injury. 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 Lung CA History of Any Multi-Drug Resistant Organisms: None Reported Past Surgical History: Cholecystectomy, Hysterectomy, Orthopedic Surgery Additional Past Surgical History / Comment(s): Bronchoscopy with lung bx, pulmonary stent, EGD, colonoscopy/polypectomy with bleed, R nephrectomy 1981, 2011 laparotomy with lysis of adhesions, L shoulder and collar bone surgery, to justin hysterectomy, cataract surg-lens implants. Past Anesthesia/Blood Transfusion Reactions: No Reported Reaction Additional Past Anesthesia/Blood Transfusion Reaction / Comment(s): Pt has never received blood. Past Psychological History: Depression Additional Psychological History / Comment(s): Pt resides at [facility] in her own apartment. She has home oxygen, nebulizer, BSC, shower chair, walker. She manages her own medications. She uses the bus to get to appts. She denies any suicidal thoughts/plans. Smoking Status: Former smoker Past Alcohol Use History: None Reported Additional Past Alcohol Use History / Comment(s): Pt started smoking in 1975 and quit smoking in 2011. smoked 1 ppd Past Drug Use History: None Reported Additional Drug Use History / Comment(s): Pt takes norco as prescribed by "Dr. Lopez" - Past Family History Father Family Medical History: Cancer Additional Family Medical History / Comment(s): Pancreatic cancer and passed when he was 58 Mother Family Medical History: No Reported History Additional Family Medical History / Comment(s): Alcohol abuse Medications and Allergies Home Medications Medication Instructions Recorded Confirmed Type Methimazole [Tapazole] 7.5 mg PO MOWEFR 07/25/18 09/07/19 History Atorvastatin [Lipitor] 10 mg PO HS #30 tab 08/31/18 09/07/19 Rx Montelukast [Singulair] 10 mg PO HS 09/21/18 09/07/19 History DULoxetine HCL [Cymbalta] 60 mg PO DAILY 01/09/19 09/07/19 History Budesonide 1 mg INHALATION RT-BID 04/10/19 09/07/19 History Metoprolol Succinate [Toprol XL] 25 mg PO DAILY 04/10/19 09/07/19 History Ondansetron HCl [Zofran] 4 mg PO Q8H PRN 04/10/19 09/07/19 History traZODone HCL 100 mg PO HS 04/10/19 09/07/19 History Albuterol Sulfate [Proair Hfa] 2 puff INHALATION RT-Q4H PRN 09/07/19 09/07/19 History Ipratropium-Albuterol Nebulize 3 ml INHALATION RT-QID PRN 09/07/19 09/07/19 History [Duoneb 0.5 mg-3 mg/3 ml Soln] Methimazole [Tapazole] 5 mg PO SUTUTHSA 09/07/19 09/07/19 History Umeclidinium [place] [Incruse 1 puff INHALATION RT-DAILY 09/07/19 09/07/19 History Ellipta] predniSONE 10 - 20 mg PO DAILY 09/07/19 09/07/19 History Cefuroxime Axetil [Ceftin] 500 mg PO BID 3 Days #6 tab 09/08/19 Rx Furosemide [Lasix] 10 mg PO DAILY PRN #0 09/08/19 09/07/19 Rx Omeprazole [PriLOSEC] 40 mg PO AC-GLENNYFSChandan #14 capsule.dr 09/08/19 Rx amLODIPine [Norvasc] 5 mg PO DAILY #30 tab 09/08/19 09/07/19 Rx traMADol HCL [Ultram] 50 mg PO Q4HR PRN 3 Days #18 tab 09/08/19 Rx Allergies Allergy/AdvReac Type Severity Reaction Status Date / Time Influenza Virus Vaccines Allergy Dyspnea Verified 09/07/19 18:04 hydromorphone [From Dilaudid] AdvReac Hallucinati Verified 09/07/19 18:04 ons Physical Exam Vitals: Vital Signs Temp Pulse Pulse Resp BP BP Pulse Ox 09/08/19 11:17 86 09/08/19 11:11 97.9 F 76 20 113/70 99 09/08/19 11:06 90 09/08/19 07:50 95 09/08/19 07:37 83 09/08/19 07:23 81 09/08/19 03:50 98 F 87 17 137/87 95 09/07/19 21:43 88 09/07/19 21:30 86 09/07/19 20:33 97.6 F 96 18 136/82 95 09/07/19 17:56 86 16 126/79 99 03/13/20 17:00 88 16 136/75 100 Intake and Output 09/08/19 09/08/19 09/08/19 06:59 14:59 22:59 Other: Voiding Method Toilet # Voids 1 1 PHYSICAL EXAMINATION: GENERAL: The patient is alert and oriented x3, not in any acute distress. Well developed, well nourished. HEENT: Pupils are round and equally reacting to light. EOMI. No scleral icterus. No conjunctival pallor. Normocephalic, atraumatic. No pharyngeal erythema. No thyromegaly. CARDIOVASCULAR: S1 and S2 present. No murmurs, rubs, or gallops. PULMONARY: Chest is clear to auscultation, no wheezing or crackles. ABDOMEN: abdominal has been distended nontender does have sluggish bowel sounds abdomen is little firm MUSCULOSKELETAL: No joint swelling or deformity. EXTREMITIES: No cyanosis, clubbing, or pedal edema. NEUROLOGICAL: Gross neurological examination did not reveal any focal deficits. SKIN: No rashes. Results CBC & Chem 7: 09/07/19 13:53 09/07/19 13:53 Labs: Microbiology - Last 24 Hours (Table) 09/07/19 14:25 Urine Culture - Preliminary Urine,Voided Thrombosis Risk Factor Assmnt - Choose All That Apply Any of the Below Risk Factors Present?: Yes Each Factor Represents 1 point: Abnormal pulmonary function (COPD), Obesity (BMI >25) Each Risk Factor Represents 2 Points: Age 61-74 years, Malignancy Thrombosis Risk Factor Assessment Total Risk Factor Score: 6 Thrombosis Risk Factor Assessment Level: High Risk Assessment and Plan Plan: -abdominal pain: Possibly etiologies being peptic ulcer disease and patient will be discharged on Prilosec as described above. Patient does take prednisone a daily basis rather etiology being metastatic disease to the abdomen may be contributing to her pain patient does have ventral hernia with the inflamed layer of fat. Patient is wishing to go home .patient had a significant side effects to [place] in the past because of which she will try tramadol she only has atenolol at home. -Leukocytosis reactive secondary to probable peptic ulcer disease -metastatic lung cancersupposed to get chemotherapy next Tuesday -Hyperlipidemia -Hypertension -Hypothyroidism she resides at [facility] patient will be discharged on tramadol and Prilosec.
--- NOTE | 2019-09-08 18:00 | P.CONS ---
History of Present Illness - Reason for Consult Consult date: 09/08/19 Recurrent Small Cell Lung cancer Requesting physician: Homero Vines - Chief Complaint Abdominal Distention - History of Present Illness Mrs. Kern is a very pleasant female pt seen on initial consult at [facility] on 05/15/18 for new lung mass when she presented with progressive SOB. She had CTA 05/14/18, negative for PE but incidentially a 6.9 x 6.1 x 8.9 cm left hilar mass was found, with collapse of the LLL, 1.4cm right hilar LN, 4cm right subcarinal LN mass, severe emphysema and granulomatous disease in the spleen. On 05/17/18 she had bronch and biopsy with Dr. Sánchez, path positive for small cell lung cancer, staging CT AP (05/15) showed no other disease, bone scan (05/19) and brain MRI (05/19) were also negative. 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 She is seen in the office on 06/05/18 for 1st visit and chemo education. No acute changes in her health, O2 at 5L, her son is moving out as he "cannot handle" what is going on. She does have friend support. She was started on chemo with ICE CARVER 16 and Carboplatin, concurrent with RT , with a curative intent. She is s/p 2 cycles of chemo, completing those by 06/30/18 She then had treatment interruption due to prolonged admissions to [facility] and then [facility], for sepsis with pancytopenia,a nd then acute respiratory failure. She was discharged on 07/31/18. She had a MRI brain on 08/07/18 revealing no metastatic disease. It was felt that the pt would not be able to tolerate concurrent treatment. She thus proceeded with RT alone, completing that on 08/15/18. She then resumed chemo and completed an additional 2 cycles ( total 4) on 09/29/18 CT scan in 11/12 did not show measurable tumor. She was admitted in 01/12 for UTI , sepsis and MS changes. Unfortunately CT scans on 08/16 showed a new left infrahilar 1.2 m nodule, as well as multiple metastatic appearing liver lesions. Liver biopsy on 08/21/19 confirmed recurrent small cell ca. MRI brain was negative for mets. She does use oxygen at home with O2 requirement is at 4 L. She still fatigues easily. She ambulates with a walker, and a wheelchair outside the house. She states she can perform basic ADLs on her own, and is living alone. The liver biopsy results, and indications were discussed in detail with her on August [address] Varghese. The patient now has stage IV small cell cancer, which is not curable. The objective of treatment would be prolongation of life and palliation of symptoms. - Various treatment options, including systemic chemotherapy with the same r egimen (as it has been greater than 6 months since her last treatment), or another regimen (such as carboplatin plus irinotecan), as well as immunotherapy ( Ipilimumab + Nivolumab) were discussed. She was advised that generally in her situation clinical benefit rate is in the 30-40% range with average progression of life at about 3-4 months, if treatment is effective. The concern in her case is her poor performance status which would significantly increase her risk of adverse events with systemic treatment, plus potentially affecting length as well as quality of life. Comfort care as an option was felt to be reasonable to consider, and was also discussed with her. After this discussion she was going to take time to consider her options, treatment was set up for immunotherapy, although I do not see she has received per the office charts. 09/08/19: She now has presented to [facility] with complaints of abdominal distention. CT abdomen re-revealed extensive liver metastasis, no abdominal ascites present to perfor paracentesis. Her distention and pain is likely carcinamatosis related. This was probably exaccerbated with UTI. She was started on antibiotics. Review of Systems A 14 point review of systems assessed and completed and all negative except HPI Past Medical History Past Medical History: Asthma, Cancer, COPD, GERD/Reflux, Hyperlipidemia, Hypertension, Pneumonia, Thyroid Disorder Additional Past Medical History / Comment(s): Pt recently admitted to [facility] on 12/23/18 with psychosis, compression fracture L1, pneumonia, hypoxia, respiratory failure, acute on chronic COPD, UTI/kidney injury. 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 Lung CA History of Any Multi-Drug Resistant Organisms: None Reported Past Surgical History: Cholecystectomy, Hysterectomy, Orthopedic Surgery Additional Past Surgical History / Comment(s): Bronchoscopy with lung bx, pulmonary stent, EGD, colonoscopy/polypectomy with bleed, R nephrectomy 1981, 2011 laparotomy with lysis of adhesions, L shoulder and collar bone surgery, total hysterectomy, cataract surg-lens implants. Past Anesthesia/Blood Transfusion Reactions: No Reported Reaction Additional Past Anesthesia/Blood Transfusion Reaction / Comm: Pt has never received blood. Past Psychological History: Depression Additional Psychological History / Comment(s): Pt resides at [facility] in her own apartment. She has home oxygen, nebulizer, BSC, shower chair, walker. She manages her own medications. She uses the bus to get to appts. She denies any suicidal thoughts/plans. Smoking Status: Former smoker Past Alcohol Use History: None Reported Additional Past Alcohol Use History / Comment(s): Pt started smoking in 1975 and quit smoking in 2011. smoked 1 ppd Past Drug Use History: None Reported Additional Drug Use History / Comment(s): Pt takes norco as prescribed by "Dr. Lopez" - Past Family History Father Family Medical History: Cancer Additional Family Medical History / Comment(s): Pancreatic cancer and passed when he was 58 Mother Family Medical History: No Reported History Additional Family Medical History / Comment(s): Alcohol abuse Medications and Allergies Home Medications Medication Instructions Recorded Confirmed Type Methimazole [Tapazole] 7.5 mg PO MOWEFR 07/25/18 09/07/19 History Atorvastatin [Lipitor] 10 mg PO HS #30 tab 08/31/18 09/07/19 Rx Montelukast [Singulair] 10 mg PO HS 09/21/18 09/07/19 History DULoxetine HCL [Cymbalta] 60 mg PO DAILY 01/09/19 09/07/19 History Budesonide 1 mg INHALATION RT-BID 04/10/19 09/07/19 History Metoprolol Succinate [Toprol XL] 25 mg PO DAILY 04/10/19 09/07/19 History Ondansetron HCl [Zofran] 4 mg PO Q8H PRN 10/15/19 03/13/20 History traZODone HCL 100 mg PO HS 04/10/19 09/07/19 History Albuterol Sulfate [Proair Hfa] 2 puff INHALATION RT-Q4H PRN 09/07/19 09/07/19 History Ipratropium-Albuterol Nebulize 3 ml INHALATION RT-QID PRN 09/07/19 09/07/19 History [Duoneb 0.5 mg-3 mg/3 ml Soln] Methimazole [Tapazole] 5 mg PO SUTUTHSA 09/07/19 09/07/19 History Umeclidinium [place] [Incruse 1 puff INHALATION RT-DAILY 09/07/19 09/07/19 History Ellipta] predniSONE 10 - 20 mg PO DAILY 09/07/19 09/07/19 History Cefuroxime Axetil [Ceftin] 500 mg PO BID 3 Days #6 tab 09/08/19 Rx Furosemide [Lasix] 10 mg PO DAILY PRN #0 09/08/19 09/07/19 Rx Omeprazole [PriLOSEC] 40 mg PO AC-BRKFST #14 capsule. 09/08/19 Rx amLODIPine [Norvasc] 5 mg PO DAILY #30 tab 09/08/19 09/07/19 Rx traMADol HCL [Ultram] 50 mg PO Q4HR PRN 3 Days #18 tab 09/08/19 Rx Allergies Allergy/AdvReac Type Severity Reaction Status Date / Time Influenza Virus Vaccines Allergy Dyspnea Verified 09/07/19 18:04 hydromorphone [From Dilaudid] AdvReac Hallucinati Verified 09/07/19 18:04 ons Physical Exam Vitals: Vital Signs Temp Pulse Pulse Resp BP BP Pulse Ox 09/08/19 11:17 86 09/08/19 11:11 97.9 F 76 20 113/70 99 09/08/19 11:06 90 09/08/19 07:50 95 09/08/19 07:37 83 09/08/19 07:23 81 09/08/19 03:50 98 F 87 17 137/87 95 09/07/19 21:43 88 09/07/19 21:30 86 09/07/19 20:33 97.6 F 96 18 136/82 95 09/07/19 17:56 86 16 126/79 99 09/07/19 17:00 88 16 136/75 100 Intake and Output 09/08/19 09/08/19 09/08/19 06:59 14:59 22:59 Other: Voiding Method Toilet # Voids 1 1 Gen: NAD, Alert and oriented Neck Supple Denitiion poor Lungs: Decreased overall breath sounds and expiratory wheezes Heart: tachy, regular Abdomen: Diffuse tenderness to palpate, distention Ext: Pulses palp Skin is dry and pale Neurologic: Non-Fcal Results CBC & Chem 7: 09/07/19 13:53 09/07/19 13:53 Labs: Abnormal Lab Results - Last 24 Hours (Table) 09/07/19 Range/Units 14:25 Urine Appearance Cloudy H (Clear) Urine Protein Trace H (Negative) Urine Nitrite Positive H (Negative) Ur Leukocyte Esterase Moderate H (Negative) Urine WBC 25 H (0-5) /hpf Calcium Oxalate Crystal Few H (None) /hpf Amorphous Sediment Rare H (None) /hpf Urine Bacteria Many H (None) /hpf Urine Mucus Rare H (None) /hpf Microbiology - Last 24 Hours (Table) 09/07/19 14:25 Urine Culture - Preliminary Urine,Voided CT scan - abdomen: report reviewed CT scan - chest: report reviewed CT scan - pelvis: report reviewed Assessment and Plan Plan: Assessment and Recommendations: Limited stage Small Cell Lung Cancer which is now recurrent and has diffusely metastasized to liver. - Patient overall treatment plan is palliative and she has been informed of this and statistical outcomes with and without treatment with either chemo or immunotherapy, at this time she has not agreed to treatment. In this case palliate/comfort measure are appropriate Abdominal Pain and Distention: - Related to underlying liver mets, carcinamatosis - Continue supportive care and symptom management UTI: - Antibiotics prescribed per Emergency department Thank you for allowing us to participate in care of your patient. She may follow-up with us once she has made decision regarding to move forward with treatment plan or to forgo and we can set up hospice care in the home. Kashmir Gutierrez NP
[2019-09-10] MEDS ORDERED: METHIMAZOLE 5 MG TAB PO SCH (09:00)
== END 2019-09-08 16:10 | disposition home or self-care (01) | DRG 436 ==
LOC: EC 13:32 → 5NMEDONC 16:58
PROVIDERS: ADMIT Hospitalist; ATTEND Hospitalist
DX: C78.7 Secondary malignant neoplasm of liver and intrahepatic bile duct (principal); C34.90 Malignant neoplasm of unspecified part of unspecified bronchus or lung; N39.0 Urinary tract infection, site not specified; J96.11 Chronic respiratory failure with hypoxia; E03.9 Hypothyroidism, unspecified; E78.5 Hyperlipidemia, unspecified; F32.9 Major depressive disorder, single episode, unspecified; I10 Essential (primary) hypertension; J43.9 Emphysema, unspecified; K27.9 Peptic ulcer, site unspecified, unspecified as acute or chronic, without hemorrhage or perforation; K43.9 Ventral hernia without obstruction or gangrene; Z79.899 Other long term (current) drug therapy; Z80.0 Family history of malignant neoplasm of digestive organs; Z85.118 Personal history of other malignant neoplasm of bronchus and lung; Z87.442 Personal history of urinary calculi; Z87.891 Personal history of nicotine dependence; Z90.710 Acquired absence of both cervix and uterus; Z96.1 Presence of intraocular lens; Z99.81 Dependence on supplemental oxygen; Z90.5 Acquired absence of kidney; Z88.5 Allergy status to narcotic agent; Z88.7 Allergy status to serum and vaccine; Z87.01 Personal history of pneumonia (recurrent); Z90.49 Acquired absence of other specified parts of digestive tract; Z81.1 Family history of alcohol abuse and dependence
CPT/HCPCS: 36415; 71260; 74177; 80053; 81001; 82150; 83605; 83690; 85025; 87040; 87077; 87086; 87186; 94640; 94760; 96374; 99285